=== PATIENT | male | born 1960 | race Caucasian/White ===

== ENCOUNTER → 2017-11-25 11:40 | Outpatient (CLI) | payer BC, SELFPAY ==
[2017-11-25 12:28] LABS: Basophils % 0.4 % (0.1-2.0); Eosinophils # 0.4 K/mm3 (0.0-0.4); Eosinophils % 4.4 % (0.1-12.0); Hematocrit 48.9 % (42.0-52.0); Hemoglobin 15.6 g/dL (14.1-18.0); Lymphocytes # 1.6 K/mm3 (0.7-4.5); Lymphocytes % 17.8 K/mm3 (10-50); Mean Corpuscular HGB Conc 31.9 g/dL (31.8-35.4); Mean Corpuscular Hemoglobin 31.3 pg (27.0-31.2); Mean Corpuscular Volume 98.2 fl (80-94); Mean Platelet Volume 7.3 fl (7.4-10.4); Monocytes # 0.7 K/mm3 (0.1-1.0); Monocytes % 8.1 % (1.7-9.3); Neutrophils # 6.2 K/mm3 (1.8-7.8); Neutrophils % 69.3 % (37.0-80.0); Platelet Count 301 K/mm3 (142-424); Red Blood Count 4.97 M/mm3 (4.60-6.20); Red Cell Distribution Width 13.4 % (11.5-17.5); White Blood Count 8.9 K/mm3 (4.8-10.8)
[2017-11-25 14:37] LABS: Alanine Aminotransferase 42 U/L (12-78); Albumin Level 3.6 gm/dL (3.4-5.0); Albumin/Globulin Ratio 1.1 (1.1-1.8); Alkaline Phosphatase 117 U/L (46-116); Anion Gap 14.2 mEq/L (5-15); Aspartate Amino Transferase 27 U/L (15-37); Bilirubin,Total 0.5 mg/dL (0.2-1.0); Blood Urea Nitrogen 12 mg/dL (7-18); Calcium 9.9 mg/dL (8.5-10.1); Carbon Dioxide 27 mmol/L (21.0-32.0); Chloride 106 mmol/L (98-107); Creatinine,Serum 1.04 mg/dL (0.70-1.30); Estimated Glomerular Filt Rate 73 ml/min (>60); GFR (African American) 88 ML/MIN (>60); Globulin 3.4 gm/dl (1.3-3.2); Glucose 95 mg/dL (74-106); Potassium 4.2 mmoL/L (3.5-5.1); Sodium 143 mmol/L (136-145); Thyroid Stimulating Hormone 1.87 uIU/ml (0.358-3.740)
== END ==
PROVIDERS: Visit Provider Nurse Practitioner Family
DX: R60.9 Edema, unspecified (principal); R06.09 Other forms of dyspnea
CPT/HCPCS: 36415; 80053; 83880; 84443; 85025

== ENCOUNTER → 2017-11-30 14:19 | Outpatient (CLI) | payer BC, SELFPAY ==
--- NOTE | 2017-11-30 14:25 | CA_ITS ---
PROCEDURE: 2-D M-mode and color Doppler study INDICATIONS FOR THE TEST: Chest pain + COPD+ Heart Murmur Tobacco Smoking Palpitations Fatigue+ Syncope Edema+ Hypertension+Diabetes Mellitus+ Rheumatic Fever SOB+PATEL+Obesity+Hyperlipidemia+ Family History HD Additional History 6 STEMTS PATIENT INFORMATION HEIGHT: 71 WEIGHT:315 GENDER: Male B/P:127/74 2-D/M-MODE INTERPRETATION: 2-D MEASUREMENTS OBSERVED VALUES IN CMS Right Ventricular Dimension (RVDd) 2.0 Interventricular Septum (Thickness)(IVsd) 1.3 Left Ventricular Internal Dimensions(LVIDd) 4.7 Left Ventricular Posterior Wall (Thickness)(LVPWd) 1.3 Aortic Root 3.5 Aortic Cusp Separation 2.2 Left Atrial Dimensions (LAD) 4.5 2D 1. Left atrium is mildly enlarged, left ventricle is normal size, there is mild ventricular hypertrophy, visually estimated ejection fraction 55% with no obvious regional wall motion abnormality. 2. The right atrium and right ventricle are mildly enlarged with normal contractility. 3. The aortic valve is minimally thickened and fibrosed. 4. The mitral and tricuspid valve are structurally normal. 5. The pulmonic valve is poorly was adequate. 6. No significant pericardial effusion noted. DOPPLER INTERROGATION: Doppler interrogation of the aortic, mitral and tricuspid valvular presence of mild mitral and tricuspid regurgitation, tricuspid and jet velocity insufficient for calculation of the right ventricular systolic pressure, diastolic parameters are inconclusive. CONCLUSION: 1. Mild biatrial enlargement, normal left ventricular size, mild concentric left ventricular hypertrophy, visually estimated ejection fraction 55% with no obvious regional wall motion abnormality, diastolic parameters are inconclusive. 2. Mild mitral and tricuspid regurgitation 3. No significant pericardial effusion noted.
== END ==
PROVIDERS: Family Provider Internal Medicine Adolescent Medicine; PCP Internal Medicine Adolescent Medicine; Visit Provider Nurse Practitioner Family
DX: I50.20 Unspecified systolic (congestive) heart failure (principal); R06.02 Shortness of breath
CPT/HCPCS: 93306

== ENCOUNTER → 2017-12-09 11:25 | Outpatient (CLI) | payer BC, SELFPAY ==
[2017-12-09 17:24] LABS: Anion Gap 15.2 mEq/L (5-15); Blood Urea Nitrogen 19 mg/dL (7-18); Carbon Dioxide 25 mmol/L (21.0-32.0); Chloride 106 mmol/L (98-107); Creatinine,Serum 0.99 mg/dL (0.70-1.30); Estimated Glomerular Filt Rate 77 ml/min (>60); GFR (African American) 94 ML/MIN (>60); Glucose 102 mg/dL (74-106); Magnesium 2.1 mg/dL (1.4-2.2); Potassium 4.2 mmoL/L (3.5-5.1); Sodium 142 mmol/L (136-145)
[2017-12-10 13:51] LABS: Vitamin B12 515 pg/mL (232-1245)
== END ==
PROVIDERS: Visit Provider Nurse Practitioner Family
DX: I10 Essential (primary) hypertension (principal); R60.9 Edema, unspecified; R53.81 Other malaise
CPT/HCPCS: 36415; 80048; 82607; 83735

== ENCOUNTER → 2018-01-13 11:50 | Outpatient (CLI) | payer BC, SELFPAY ==
[2018-01-13 12:30] LABS: Alanine Aminotransferase 45 U/L (12-78); Albumin Level 3.4 gm/dL (3.4-5.0); Albumin/Globulin Ratio 0.9 (1.1-1.8); Alkaline Phosphatase 119 U/L (46-116); Anion Gap 14.9 mEq/L (5-15); Aspartate Amino Transferase 26 U/L (15-37); Bilirubin,Total 0.7 mg/dL (0.2-1.0); Blood Urea Nitrogen 13 mg/dL (7-18); Calcium 8.9 mg/dL (8.5-10.1); Carbon Dioxide 24 mmol/L (21.0-32.0); Chloride 105 mmol/L (98-107); Creatinine,Serum 1.11 mg/dL (0.70-1.30); Estimated Glomerular Filt Rate 68 ml/min (>60); GFR (African American) 82 ML/MIN (>60); Glucose 106 mg/dL (74-106); Potassium 3.9 mmoL/L (3.5-5.1); Sodium 140 mmol/L (136-145); Total Protein,Serum 7.4 gm/dL (6.4-8.2)
[2018-01-13 12:31] LABS: Basophils # 0.1 K/mm3 (0-0.2); Basophils % 0.5 % (0.1-2.0); Eosinophils # 0.2 K/mm3 (0.0-0.4); Eosinophils % 1.9 % (0.1-12.0); Hematocrit 46.1 % (42.0-52.0); Hemoglobin 14.6 g/dL (14.1-18.0); Lymphocytes # 1.4 K/mm3 (0.7-4.5); Lymphocytes % 12.4 K/mm3 (10-50); Mean Corpuscular HGB Conc 31.7 g/dL (31.8-35.4); Mean Corpuscular Hemoglobin 30.5 pg (27.0-31.2); Mean Corpuscular Volume 95.9 fl (80-94); Mean Platelet Volume 7.2 fl (7.4-10.4); Monocytes # 0.6 K/mm3 (0.1-1.0); Monocytes % 5.6 % (1.7-9.3); Neutrophils # 8.9 K/mm3 (1.8-7.8); Neutrophils % 79.8 % (37.0-80.0); Platelet Count 315 K/mm3 (142-424); Red Cell Distribution Width 12.8 % (11.5-17.5); White Blood Count 11.2 K/mm3 (4.8-10.8)
== END ==
PROVIDERS: Visit Provider Nurse Practitioner Family
DX: I50.20 Unspecified systolic (congestive) heart failure (principal); I20.8 Other forms of angina pectoris
CPT/HCPCS: 36415; 80053; 83735; 83880; 85025

== ENCOUNTER → 2018-11-02 12:21 | Outpatient (CLI) | payer BC, MEDICARE, SELFPAY ==
[2018-11-02 13:22] LABS: Basophils % 0.4 % (0.1-2.0); Eosinophils # 0.2 K/mm3 (0.0-0.4); Eosinophils % 2.2 % (0.1-12.0); Hematocrit 47.3 % (42.0-52.0); Hemoglobin 15.2 g/dL (14.1-18.0); Lymphocytes # 1.2 K/mm3 (0.7-4.5); Lymphocytes % 15.4 % (10-50); Mean Corpuscular HGB Conc 32.2 g/dL (31.8-35.4); Mean Corpuscular Hemoglobin 30.8 pg (27.0-31.2); Mean Corpuscular Volume 95.7 fl (80-94); Mean Platelet Volume 7.3 fl (7.4-10.4); Monocytes # 0.5 K/mm3 (0.1-1.0); Monocytes % 6.3 % (1.7-9.3); Neutrophils % 75.8 % (37.0-80.0); Platelet Count 285 K/mm3 (142-424); Red Blood Count 4.94 M/mm3 (4.60-6.20); Red Cell Distribution Width 13.5 % (11.5-17.5); White Blood Count 7.9 K/mm3 (4.8-10.8)
== END ==
PROVIDERS: Visit Provider Otolaryngology
DX: Z01.818 Encounter for other preprocedural examination (principal); H61.92 Disorder of left external ear, unspecified
CPT/HCPCS: 36415; 85025; 93005

== ENCOUNTER → 2018-12-16 14:36 | Outpatient (CLI) | payer BC, MEDICARE, SELFPAY ==
--- NOTE | 2018-12-16 14:38 | MR_ITS ---
MR cervical spine wo con, MR 3-d myelogram/MRCP HISTORY: Neck pain X Years. Prior neck surgery 2010. Bilateral Arm numbness. ITS.REASON: DDD CERVICAL, CERVICAL RADICULOPATHY DUE TO INTERVERTEBRAL D ORDERING PHYSICIAN: Jennifer Newton APRN PATIENT AGE: 58 years Comparison: MRI 05/03/15 TECHNIQUE: Standard multiplanar multiecho sequences are performed without contrast. 3-D MIP and myelographic images are also rendered and reviewed FINDINGS: There is normal alignment. The craniocervical junction has an unremarkable appearance. C2-C3: Unremarkable. Minimal prominence of the posterior longitudinal ligament C3-C4: Mild left-sided uncovertebral hypertrophy with mild left-sided foraminal narrowing. C4-C5: Degenerative disc disease with Bulging disc along with uncovertebral hypertrophy with bilateral foraminal narrowing slightly greater on the left C5-C6: Mild degenerative disc disease with bulging disc C6-C7: Degenerative disc disease with bulging disc with left paracentral disc osteophyte complex with moderate left-sided lateral recess and foraminal narrowing which may be slightly more prominent C7-T1: Prior anterior cervical disc fusion. Unremarkable appearance. T1-T2: Unremarkable. IMPRESSION: 1. Postsurgical changes with multilevel cervical spondylosis with degenerative disc disease bulging disc and uncovertebral hypertrophy. Please see above for detailed description at each level 2. Degenerative disc disease C6-C7 with bulging disc and a small left paracentral disc osteophyte complex with moderate left-sided lateral recess and foraminal narrowing which may be slightly more prominent compared to the previous exam
== END ==
PROVIDERS: PCP Nurse Practitioner Family; Visit Provider Nurse Practitioner Family
DX: M50.30 Other cervical disc degeneration, unspecified cervical region (principal); M50.10 Cervical disc disorder with radiculopathy, unspecified cervical region
CPT/HCPCS: 72141; 76376

== ENCOUNTER → 2019-01-03 13:57 | Outpatient (CLI) | payer BC, MEDICARE, SELFPAY ==
[2019-01-03 14:23] LABS: Basophils # 0.1 K/mm3 (0-0.2); Basophils % 0.5 % (0.1-2.0); Eosinophils # 0.3 K/mm3 (0.0-0.4); Eosinophils % 2.8 % (0.1-12.0); Hematocrit 46.1 % (42.0-52.0); Hemoglobin 15.5 g/dL (14.1-18.0); Lymphocytes # 1.9 K/mm3 (0.7-4.5); Lymphocytes % 20.7 % (10-50); Mean Corpuscular HGB Conc 33.6 g/dL (31.8-35.4); Mean Corpuscular Hemoglobin 31.7 pg (27.0-31.2); Mean Corpuscular Volume 94.1 fl (80-94); Mean Platelet Volume 7.3 fl (7.4-10.4); Monocytes # 0.6 K/mm3 (0.1-1.0); Monocytes % 6.3 % (1.7-9.3); Neutrophils # 6.4 K/mm3 (1.8-7.8); Neutrophils % 69.8 % (37.0-80.0); Platelet Count 293 K/mm3 (142-424); Red Cell Distribution Width 13.5 % (11.5-17.5); White Blood Count 9.2 K/mm3 (4.8-10.8)
[2019-01-03 18:33] LABS: Alanine Aminotransferase 30 U/L (12-78); Albumin Level 3.6 gm/dL (3.4-5.0); Albumin/Globulin Ratio 1.2 (1.1-1.8); Alkaline Phosphatase 108 U/L (46-116); Anion Gap 13.6 mEq/L (5-15); Aspartate Amino Transferase 19 U/L (15-37); Bilirubin,Total 0.5 mg/dL (0.2-1.0); Blood Urea Nitrogen 12 mg/dL (7-18); Calcium 8.8 mg/dL (8.5-10.1); Carbon Dioxide 28 mmol/L (21.0-32.0); Chloride 105 mmol/L (98-107); Chol/HDL Ratio 3.7 (1-3.5); Cholesterol 142 mg/dL (140-200); Creatinine,Serum 1.04 mg/dL (0.70-1.30); Estimated Glomerular Filt Rate 73 ml/min (>60); GFR (African American) 88 ML/MIN (>60); Globulin 2.9 gm/dl (1.3-3.2); Glucose 94 mg/dL (74-106); HDL Cholesterol 38 mg/dL (27-67); LDL Cholesterol 84 mg/dL (0-130); Potassium 4.6 mmoL/L (3.5-5.1); Sodium 142 mmol/L (136-145); Total Protein,Serum 6.5 gm/dL (6.4-8.2); Triglycerides 98 mg/dL (30-200); VLDL Cholesterol 20 mg/dL (0-40)
[2019-01-06 20:39] LABS: Vitamin B12 511 pg/mL (232-1245)
== END ==
PROVIDERS: Visit Provider Nurse Practitioner Family
DX: Z00.00 Encounter for general adult medical examination without abnormal findings (principal); E78.5 Hyperlipidemia, unspecified; I10 Essential (primary) hypertension; I50.20 Unspecified systolic (congestive) heart failure; E61.1 Iron deficiency; E53.8 Deficiency of other specified B group vitamins
CPT/HCPCS: 36415; 80053; 80061; 82607; 85025

== ENCOUNTER 2019-03-21 13:00 | Outpatient (RCR) | payer BC, MEDICARE, SELFPAY | END 2019-06-26 13:19 | disposition home or self-care (01) | LOC: PT 13:00 | PROVIDERS: Visit Provider Nurse Practitioner Family | DX: I50.20 Unspecified systolic (congestive) heart failure (principal); Z86.74 Personal history of sudden cardiac arrest | CPT/HCPCS: 93798 ==

== ENCOUNTER → 2019-10-12 11:16 | Outpatient (CLI) | payer BC, SELFPAY ==
--- NOTE | 2019-10-12 11:16 | NM_ITS ---
APPROVED REPORT Exam: Nuclear Stress Test Indication: chest pain..short of breath..syncpe..fatigue Patient Location: Outpatient Stress Tech: Zoey Daniel CT Tech:Komal RinaldiRISA RT(R)(N) Ht: 5 ft 11 in Wt: 290 lbs HR: 60 bpm BP: 105/48 mmHg BSA: 2.47 m2 BMI: 40.4 History: chest pain..short of breath..syncpe..fatigue Procedure: Patient received a 0.4 mg of intravenous Lexiscan, resting heart rate 60 bpm, resting blood pressure 105/48 mmHg, with Lexiscan maximum heart rate achived was 79 bpm which is % of the maximum predicted heart rate and blood pressure was 99/58 mmHg. With Lexiscan, patient denied any complaint of chest pain. Cardiac Stress and Resting SPECT Images: Cardiac Stress and Resting SPECT images were obtained using technetium 99m Myoview 31.1 mCi stress and 10.76 mCi at rest. EF 54% Fixed defect in the inferior wall with some mnimal redistribution at the apex and base of the defect Conclusion: EF 54% Fixed defect in the inferior wall with some mnimal redistribution at the apex and base of the defect suggesting mild perinfarct ischemia Electronically signed by : Elbert Booker MD 10/13/2019 13:55:02
--- NOTE | 2019-10-12 13:00 | CA_ITS ---
APPROVED REPORT Exam: Pharmacologic Technologist: RITA MAURICIO, Ht: 5 ft 11 in Wt: 290 lbs BSA: 2.47 m2 HR: 60 bpm BP: 105/48 mmHg Rhythm: NSR Indications: CP, SOA Medical History Medications: Metoprolol,,,,, Asa,,,,, Atorvastatin,,,,, Ranitidine,,,,, Iron,,,,, Lasix,,,,, LaMICTAL,,,,, Imdur,,,,, Nitro,,,,, LiNZESS,,,,, DuTASTERIDE,,,,, Aripiprazide,,,,, Stress Test Details Test: LEXISCAN Reason for pharmacologic stress test: physical limitation. HR Resting HR: 71 bpm Max Heart Rate (APMHR): 159 bpm Max HR Achieved: 95 bpm Target HR (85% APMHR): 135 bpm % of APMHR: 59 Recovery HR: 61 bpm BP Resting BP: 105/48 mmHg Max BP: 114/67 mmHg Recovery BP: 117.0/70.0 mmHg ECG Clinical Reason for Termination: Completed protocol Exercise duration: 04:13 min Highest Stage Achieved: Exercise capacity: 1.0 METs Stress ECG Conclusion Symptoms - SOA, mild nausea, mild malaise. Rare PAC. No significant ST-T changes. Conclusion - Unremarkable Lexiscan stress. Myoview images reported separately. Electronically signed by : Dillon Sky, 10/16/2019 09:45:39
--- NOTE | 2019-10-12 13:53 | HMH.ITSHM ---
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 [] asa atorvastatin lasix metoprolol niro
== END ==
PROVIDERS: PCP Internal Medicine Adolescent Medicine; Visit Provider Nurse Practitioner Family
DX: I25.118 Atherosclerotic heart disease of native coronary artery with other forms of angina pectoris (principal); R05 Cough; R06.09 Other forms of dyspnea; R07.89 Other chest pain; R60.9 Edema, unspecified; R94.31 Abnormal electrocardiogram [ECG] [EKG]; Z95.5 Presence of coronary angioplasty implant and graft
CPT/HCPCS: 78452; 93017; 93306; A9502; J2785

== ENCOUNTER 2019-12-22 08:23 | Day surgery (SDC) | payer BC, SELFPAY ==
[2019-12-22] VITALS (10 sets, daily range): BP systolic 109–145; BP diastolic 66–92; PULSE 51–69; RESP 16–20; TEMP 36.6–36.7; O2SAT 92–98; BMI 41.8
--- NOTE | 2019-12-22 | IR_ITS ---
APPROVED REPORT Patient Location: Outpatient [facility] Account Representative: RISA Espinal RT (R) PROCEDURES Left heart catheterization Left ventriculogram Selective coronary angiogram Drug-eluting stent deployment to the proximal LAD and mid LAD INDICATION Intolerable angina pectoris, Abnormal Myoview, Coronary artery disease Informed consent was obtained prior to the procedure. COMPLICATIONS NONE Estimated Blood Loss: LESS THAN 10 ML TECHNIQUE One percent lidocaine used to anesthetize the right anterior aspect of the wrist. The right radial artery was accessed via the Seldinger technique. A 6 Ivorian sheath was placed in the right radial artery. 2.5 mg of verapamil, 800 mcg of nitroglycerin, 1mg Lidocaine and 5000 U Heparin were given through the arterial sheath. The trap catheter was also used to perform left heart catheterization, left ventriculogram and selective coronary angiogram. At the end the diagnostic angiogram therapeutic heparin was administered and a JL 3.5 guide catheter was used to intubate the left main artery. A BMW wire was placed distally and a 2.5 x 30 mm resolute walter stent was deployed in the mid segment of the LAD at 22 starr reducing the stenosis to 0%. An additional 3.5 x 18 mm resolute walter stent was deployed at 22 starr in the proximal LAD reducing the stenosis to 0%. ALEXANDER-3 flow was present before and after the procedure. At the end the procedure the apparatus was removed the sheath was removed good hemostasis was achieved using TR banding patient was transferred to the postop holding her in stable condition ANGIOGRAPHIC RESULTS The left main artery Normal The left anterior descending artery Has a proximal eccentric 50% stenosis followed by 20% stenoses followed by an additional mid vessel concentric 70% in-stent restenotic lesion with additional concentric 50% stenosis distal to the stent. Very distally in the LAD there is a concentric 90% stenosis. This is at a 1.5 mm segment and where the LAD wraps the apex The circumflex artery Is nondominant gives rise to a large first obtuse marginal artery which has a stent in its proximal segment which is widely patent free of in-stent restenosis with excellent proximal distal transitioning The right coronary artery Is a dominant vessel and has stents in the proximal mid and distal segment which are widely patent free of in-stent restenosis with excellent proximal distal transitioning. There is one focal concentric 30 to 40% in-stent restenotic lesion in the distal aspect of the stent. The posterior descending artery has a mid vessel eccentric 30% stenosis The POLK ventriculogram reveals Reduced at 40% with anterior wall hypokinesis The left ventricular end-diastolic pressure 10 to 15 mmHg IMPRESSION Severe LAD disease as described above. The proximal moderate stenotic lesions and the moderate to severe mid vessel lesions make the distal stenosis quite ischemic. Because of the severe distal LAD stenosis inflow needed to be improved therefore the proximal and mid LAD were successfully stented thereby improving in flow. Reduced ejection fraction with regional wall motion abnormality Mildly elevated LVEDP PLAN 1. Dual antiplatelet therapy 2. Addition of SHAR inhibitor 3. LDL less than 55 4. Cardiac rehabilitation 5. Avoidance of tobacco products 6. The distal LAD is not amenable to stenting or angioplasty. The erratically the balloon could be used to reduce the severe stenosis but I am not in favor of revascularizing this vessel unless patient's symptoms are absolutely recalcitrant Electronically signed by : Dillon Sky, 12/22/2019 11:34:55
[2019-12-22 09:01] LABS: Chloride 103 mmol/L (98-107); Potassium 3.8 mmoL/L (3.5-5.1); Sodium 141 mmol/L (136-145)
[2019-12-22 09:03] LABS: Basophils # 0.1 K/mm3 (0-0.2); Basophils % 1.2 % (0.1-2.0); Eosinophils # 0.2 K/mm3 (0.0-0.4); Eosinophils % 2.2 % (0.1-12.0); Hematocrit 52.5 % (42.0-52.0); Hemoglobin 16.9 g/dL (14.1-18.0); Lymphocytes # 1.8 K/mm3 (0.7-4.5); Lymphocytes % 18.7 % (10-50); Mean Corpuscular HGB Conc 32.2 g/dL (31.8-35.4); Mean Corpuscular Hemoglobin 31.8 pg (27.0-31.2); Mean Corpuscular Volume 98.6 fl (80-94); Mean Platelet Volume 7.5 fl (7.4-10.4); Monocytes # 0.7 K/mm3 (0.1-1.0); Monocytes % 7.2 % (1.7-9.3); Neutrophils # 6.9 K/mm3 (1.8-7.8); Neutrophils % 70.7 % (37.0-80.0); Platelet Count 290 K/mm3 (142-424); Red Blood Count 5.32 M/mm3 (4.60-6.20); Red Cell Distribution Width 13.7 % (11.5-17.5); White Blood Count 9.8 K/mm3 (4.8-10.8)
[2019-12-22 09:04] LABS: Blood Urea Nitrogen 9 mg/dl (9-20); Creatinine Clearance Estimated 83 mL/min (50-200); Estimated Glomerular Filt Rate 98 ml/min (>60); GFR (African American) 119 ML/MIN (>60)
[2019-12-22 09:05] LABS: Anion Gap 10.8 mEq/L (5-15); Calcium 9.5 mg/dl (8.4-10.2); Carbon Dioxide 31 mmol/L (22.0-30.0); Glucose 105 mg/dl (74-100)
--- NOTE | 2019-12-22 13:57 | HMH.PHACLD ---
Abe Maharaj JR has received discharge medication counseling on the following medications: NEW MEDICATIONS: BRILINTA, RAMIPRIL - DRUG MONOGRAPHS GIVEN AND QUESTIONS ANSWERED CONTINUE MEDICATION: ASPIRIN, METOPROLOL, ATORVASTATIN
[2019-12-22 14:10] LABS: CATHL Activated Clotting Time 313 SEC (74-125)
== END 2019-12-22 14:29 | disposition home or self-care (01) ==
PROVIDERS: PCP Internal Medicine Adolescent Medicine; Visit Provider Internal Medicine
DX: I25.118 Atherosclerotic heart disease of native coronary artery with other forms of angina pectoris (principal); I10 Essential (primary) hypertension; Z95.5 Presence of coronary angioplasty implant and graft; I25.2 Old myocardial infarction; Z72.0 Tobacco use; Z79.899 Other long term (current) drug therapy
CPT/HCPCS: 80048; 85025; 85347; 92928; 93458; 99152; 99153; C1725; C1760; C1769; C1876; C9600; J1644; Q9967

== ENCOUNTER 2019-12-23 10:10 | Observation (INO) | payer BC, SELFPAY ==
[2019-12-23] VITALS (9 sets, daily range): BP systolic 117–143; BP diastolic 52–85; PULSE 50–81; RESP 16–19; TEMP 36.4–36.8; O2SAT 94–98; BMI 40.1; BMI 38.5
--- NOTE | 2019-12-23 10:09 | ECG_ITS ---
APPROVED REPORT Exam: Resting ECG HR:68 bpm ECG Measurements Heart Rate 68 AXES ME 150 P 81 QRSd 100 QRS -36 QT 382 T 45 QTc 406 <Conclusion> Normal sinus rhythm Left axis deviation,LAHB Moderate voltage criteria for LVH, may be normal variant Abnormal ECG Electronically signed by : Crow Damon, 12/26/2019 08:49:18
--- NOTE | 2019-12-23 10:13 | XR_ITS ---
PROCEDURE: XR CHEST 2V Patient Age:59Y CLINICAL HISTORY: Chest Pain had heart cath and cardiac stents placed yesterday. Of ongoing smoker COMPARISON: CXR CHEST(2 VIEWS-NOT PORTABLE) from 04/19/2015 CXR CHEST(2 VIEWS-NOT PORTABLE) from 03/17/2017 FINDINGS: The cardiomediastinal silhouette and pulmonary vascularity are within normal limits. Cardiac stentsvaguely evident. The bhaskar and superior mediastinal structures unchanged The lungs are clear without infiltrates, suspicious nodules, or pleural effusions. Mild hyperexpansion with mild chronic changes. No significant change since previous chest film 03/17/2017. No acute bony abnormalities. Chest wall unremarkable. T-spine appear stable with mild degenerative changes anterior fusion lower C-spine again noted IMPRESSION: Stable chest with nothing definitely acute. Lungs appear clear with mild chronic changes but no significant new findings Dictated by: Ronak Rivera MD 12/23/2019 19:52 Electronically signed by Ronak Rivera MD in [place] 12/23/2019 19:52
--- NOTE | 2019-12-23 10:13 | HMH.EDGENADL ---
ED Disposition Clinical Impression: Precordial chest pain Disposition: Admitted as Observation Condition on Discharge: Fair - Critical Care Critical Care Time: No Attestation: On , the high probability of a clinically significant, sudden or life threatening deterioration of the following system(s) required my full and direct attention, intervention and personal management. The time I documented below is in addition to time spent performing reported procedures but includes the following listed in this critical care notation. Medical Decision Making - Medical Records Medical records reviewed: Yes: I reviewed the patient's medical records. - Tk Inquiry Pt receiving controlled substance: Yes Tk was queried for this patient: No Reason not queried -: Emergent pt cond-no time Risks and benefits of using a controlled substance: were not discussed with pt by me Vital Signs: 12/23/19 10:13 12/23/19 10:32 12/23/19 11:05 Temperature 98.2 F Temperature Source Oral Pulse Rate [Left Radial] 73 81 62 Respiratory Rate 16 Blood Pressure [Right Arm] 138/78 133/76 123/77 Blood Pressure Mean [Right Arm] 98 95 92 Blood Pressure Source [Right Arm] Automatic Cuff Automatic Cuff Blood Pressure Position [Right Arm] Sitting Sitting Sitting 02 Sat by Pulse Oximetry 98 96 97 Oxygen Delivery Method Room Air Room Air Room Air 12/23/19 11:37 Temperature Temperature Source Pulse Rate [Left Radial] 64 Respiratory Rate Blood Pressure [Right Arm] 123/76 Blood Pressure Mean [Right Arm] 91 Blood Pressure Source [Right Arm] Automatic Cuff Blood Pressure Position [Right Arm] Sitting 02 Sat by Pulse Oximetry 95 Oxygen Delivery Method Room Air - Lab Data Lab results reviewed: Yes: I reviewed the patient's lab results. Lab Results 12/23/19 10:15: WBC 9.8, RBC 5.12, Hgb 15.9, Hct 48.3, MCV 94.4 H, MCH 31.1, MCHC 33.0, RDW 13.9, Plt Count 268, MPV 7.7, Neut % (Auto) 81.6 H, Lymph % (Auto) 9.7 L, Wagoner % (Auto) 6.5, Eos % (Auto) 1.3, Baso % (Auto) 1.1, Neut # (Auto) 8.0 H, Lymph # (Auto) 0.9, Wagoner # (Auto) 0.6, Eos # (Auto) 0.1, Baso # (Auto) 0.1 12/23/19 10:15: Sodium 140, Potassium 3.5, Chloride 107, Carbon Dioxide 27, Anion Gap 9.5, BUN 7 L, Creatinine 0.80, Estimated Creat Clear 147, Estimated GFR 98, Est GFR ( Amer) 119, Glucose 127 H, Calcium 9.4, Troponin I 0.57 H Result diagrams: 12/23/19 10:15 12/23/19 10:15 Orders (Tests/Meds): ED MEDICATIONS Generic Name Dose Route Start Last Admin Trade Name Freq PRN Reason Stop Dose Admin Nitroglycerin 2 gm 12/23/19 11:30 12/23/19 11:29 Nitroglycerin 1 Inch Oint Udp TD 01/22/20 11:29 2 gm Q6H JUSTIN Administration Ranolazine 1,000 mg 12/23/19 11:30 12/23/19 11:41 Ranexa 500mg Er Tablet PO 01/22/20 11:29 1,000 mg BID JUSTIN Administration Discontinued Medications Generic Name Dose Route Start Last Admin Trade Name Freq PRN Reason Stop Dose Admin Aspirin 324 mg 12/23/19 11:05 12/23/19 11:08 Aspirin 81mg Chewable Tablet PO 12/23/19 11:06 324 mg ONCE ONE Administration Morphine Sulfate 4 mg 12/23/19 11:23 12/23/19 11:28 Morphine 4mg/Ml Syringe IV 12/23/19 11:24 4 mg ONCE ONE Administration Nitroglycerin 1 gm 12/23/19 11:09 12/23/19 11:11 Nitroglycerin 1 Inch Oint Udp TD 12/23/19 11:10 1 gm ONCE ONE Administration Ondansetron HCl 4 mg 12/23/19 11:23 Zofran 4mg/2ml Vial IV 12/23/19 11:24 ONCE ONE ORDERS Category Date Time Status XR chest 2V Stat Exams 12/23/19 10:13 Taken Troponin I Q3H Lab 12/23/19 13:15 Ordered Troponin I Q3H Lab 12/23/19 16:15 Ordered - Radiology Data #1 Image(s): Chest Image Reviewed: Yes I reviewed the patient's radiology image Preliminary Findings: Normal/NAD - ECG Data Tracing #1 EKG interpreted by Abe To MD: Rhythm: sinus Rate: 68 [place]: Left Ectopy: none Conduction: normal ST Segment Changes: none T Wave Changes: none
[2019-12-23 10:26] LABS: Chloride 107 mmol/L (98-107); Potassium 3.5 mmoL/L (3.5-5.1); Sodium 140 mmol/L (136-145)
[2019-12-23 10:29] LABS: Anion Gap 9.5 mEq/L (5-15); Blood Urea Nitrogen 7 mg/dl (9-20); Calcium 9.4 mg/dl (8.4-10.2); Carbon Dioxide 27 mmol/L (22.0-30.0); Creatinine Clearance Estimated 147 mL/min (50-200); Estimated Glomerular Filt Rate 98 ml/min (>60); GFR (African American) 119 ML/MIN (>60); Glucose 127 mg/dl (74-100)
[2019-12-23 10:31] LABS: Basophils # 0.1 K/mm3 (0-0.2); Basophils % 1.1 % (0.1-2.0); Eosinophils # 0.1 K/mm3 (0.0-0.4); Eosinophils % 1.3 % (0.1-12.0); Hematocrit 48.3 % (42.0-52.0); Hemoglobin 15.9 g/dL (14.1-18.0); Lymphocytes # 0.9 K/mm3 (0.7-4.5); Lymphocytes % 9.7 % (10-50); Mean Corpuscular Hemoglobin 31.1 pg (27.0-31.2); Mean Corpuscular Volume 94.4 fl (80-94); Mean Platelet Volume 7.7 fl (7.4-10.4); Monocytes # 0.6 K/mm3 (0.1-1.0); Monocytes % 6.5 % (1.7-9.3); Neutrophils % 81.6 % (37.0-80.0); Platelet Count 268 K/mm3 (142-424); Red Blood Count 5.12 M/mm3 (4.60-6.20); Red Cell Distribution Width 13.9 % (11.5-17.5); White Blood Count 9.8 K/mm3 (4.8-10.8)
--- NOTE | 2019-12-23 10:32 | PC.NURSE ---
pt returned from rad.
[2019-12-23 10:43] LABS: Troponin I 0.57 ng/ml (0.00-0.034)
--- NOTE | 2019-12-23 10:53 | PC.NURSE ---
Family at bedside at this time.
--- NOTE | 2019-12-23 11:09 | PC.NURSE ---
pt states my chest pain did go away for a little bit, but now its back
--- NOTE | 2019-12-23 11:18 | PC.NURSE ---
BECKIE UNGER speaking with Dr. Sky
--- NOTE | 2019-12-23 11:24 | PC.NURSE ---
matrix bath operator paging Dr. Lorenz
--- NOTE | 2019-12-23 11:30 | PC.NURSE ---
pt and updated on plan of care
--- NOTE | 2019-12-23 11:41 | PC.NURSE ---
Dr To talking to Dr Lorenz.
--- NOTE | 2019-12-23 12:12 | PC.NURSE ---
report given to Trisha Benitez RN on second floor, states she will send staff down to transport pt.
[2019-12-23 14:12] LABS: Troponin I 0.57 ng/ml (0.00-0.034)
--- NOTE | 2019-12-23 16:32 | HMH.HP ---
*Admission Date: 12/23/19 *Chief complaint: Chest pain *History of present illness: Mr. Maharaj is a 59-year-old male with multiple comorbidities, history of coronary artery disease, and stents placed in 2017. He presented earlier this week to see cardiology for an elective heart cath with placement of 2 coronary artery stents on Wednesday of this week. Procedure went well no complications however soon after the event he states he developed some precordial pain similar to when he had his heart attack years ago. Complains of precordial chest pain with shortness of breath and nausea and radiation to his left neck and back that started about 5 PM yesterday. He states that he has chronic angina, but this pain is deeper and persistent. He took 2 nitro prior to presentation to the ER which helped but did not totally relieve the pain. In the emergency room, work-up showed slight elevation of troponin at 0.57. Cardiology was consulted who recommended admission for angina (coronary arteritis) and medical management. Patient was admitted to medicine for observation, serial troponins, and monitoring on telemetry. On my assessment this afternoon he is feeling much better. Still has some mild shortness of breath or chest pain essentially resolved. Received morphine, nitroglycerin paste, and Ranexa in the ER. No acute distress at this time. Does state however he is having a difficult time sleeping. Denies nausea, vomiting, syncope, dizziness, palpitations. [facility] History I have reviewed the patient's past medical history: Yes Medical History: Reports:: Anxiety, Coronary Artery Disease, Depression, Hyperlipidemia, Hypertension, Myocardial Infarction Denies:: Cancer, Diabetes Mellitus Type 1, Diabetes Mellitus Type 2, Internal Pacemaker, MRSA, Seizures *Have you ever received a pneumonia vaccine?: No *Have you received a flu vaccine this season?: No Other Medical History: Reports: Other. Denies: Blood Transfusion Reaction Laterality Cases: Bilateral: Other Other Surgeries: Yes: Cardiac Catheterization, Coronary Stent, Hernia Repair, Other. No: Pacemaker Amputation: No Fractures: Yes - *Social History Educational Level: Completed High School Smoking Status: Current every day smoker Tobacco Type: pipe # Packs/Day (cigarettes): 1 Alcohol Intake: never Substance Use Type: denies use, marijuana *Occupational Status:: employed Housing: apartment Household Members: spouse *Travel in the last 8 weeks: None - Psychiatric History Pschychiatric History:: Reports:: Anxiety, Depression Family Hx:: Coronary Artery Disease, Hyperlipidemia, Hypertension, Mental illness Review of Systems - Review of Systems Review of systems:: pertinent systems reviewed and negative unless documented below (14 point review of systems performed, pertinent positives and negatives as per HPI) Meds Home Medications Medication Instructions Recorded Confirmed Type albuterol sulfate 90 mcg/actuation 1 puff INHALATION DAILY 25 Days #9 10/27/18 12/23/19 History aerosol inhaler g atorvastatin 80 mg tablet 80 mg PO DAILY 90 Days #90 tab 10/27/18 12/23/19 History budesonide-formoterol HFA 160 1 puff INHALATION DAILY 30 Days 10/27/18 12/23/19 History mcg-4.5 mcg/actuation aerosol #10 g inhaler ferrous sulfate 325 mg (65 mg 325 mg PO DAILY 90 Days #180 tab 10/27/18 12/23/19 History iron) tablet furosemide 40 mg tablet 40 mg PO DAILY 30 Days #30 tab 10/27/18 12/23/19 History metoprolol succinate 50 mg 50 mg PO DAILY 90 Days #90 tab 10/27/18 12/23/19 History tablet,extended release 24 hr omeprazole 40 mg capsule,delayed 40 mg PO DAILY 30 Days #30 cap 10/27/18 12/23/19 History release ranitidine HCl 150 mg tablet 150 mg PO DAILY 10/27/18 12/23/19 History tamsulosin 0.4 mg capsule 0.4 mg PO DAILY 90 Days #90 cap 10/27/18 12/23/19 History aripiprazole 30 mg tablet 30 mg PO DAILY tab 10/10/19 12/23/19 History aspirin 81 mg tablet,delayed 81 mg PO DAILY 10/10/1912/22
[2019-12-23 16:47] LABS: Troponin I 0.52 ng/ml (0.00-0.034)
--- NOTE | 2019-12-23 20:12 | PC.NURSE ---
SPOKE WITH [facility] CONTROLLED ATMOSPHERIC FURNACE BRAZER, CHULA ON SEP TO BE GIVEN THIS HS IS NOT AVAILABLE HOSPITAL WIDE PER [facility]. PT STATES HE CAN NOT GO WITH MISSING A DOSE OF IT OF HE WILL GO CRAZY . [facility] STATES [facility] WILL BE COMING IN TO PULL GIAICTAL FROM PHARM FOR PT ADMIN. PT AWARE.
[2019-12-24] VITALS: BP 115/69; PULSE 59; PULSE 60; RESP 17; TEMP 36.6; O2SAT 92
[2019-12-24 03:52] VITALS: BP 111/51; PULSE 75; RESP 16; TEMP 36.6; O2SAT 94
[2019-12-24 04:00] VITALS: PULSE 60
--- NOTE | 2019-12-24 04:05 | PC.NURSE ---
A&O X4. PT RESTED WELL WITH EYES CLOSED T/O SHIFT. DENIES ANY CHEST PAIN. TOLERATED 2GM NITRO PASTE WELL WITH NO COMPLAINTS. NSR NOTED ON PHOTOENGRAVING PRINTER. +1 NON-PITTING EDEMA NOTED TO BLE. DENIES N/V/D. DENIES SOA. TOLERATED RA WELL. BILATERAL LUNGS NOTED CLEAR UPON AUSCULTATION. PT REQUESTING TO HAVE SYMBICORT INHALER THIS AM. INHALER IS LOCATED ON HIS SEP, UNABLE TO ADMIN DUE TO BEING ORDERED A HOME MED. NO HOME MEDS IN [place] AT THIS TIME. AMB INDEPENDENTLY TO AND FROM BATHROOM WELL. VSS. REFUSED TEDS. REMAINS SAFE. CALL LIGHT WITHIN REACH. WILL CONTINUE TO MONITOR.
[2019-12-24 05:00] VITALS: BMI 38.9
[2019-12-24 07:08] VITALS: BP 149/71; PULSE 62; RESP 18; TEMP 36.7; O2SAT 94
[2019-12-24 08:00] VITALS: PULSE 55
--- NOTE | 2019-12-24 09:21 | HMH.DCSUM ---
General - General Admission date:: 12/23/19 Discharge date: 12/24/19 HPI HPI: Mr. Maharaj is a 59-year-old male with multiple comorbidities, history of coronary artery disease, and stents placed in 2017. He presented earlier this week to see cardiology for an elective heart cath with placement of 2 coronary artery stents on Wednesday of this week. Procedure went well no complications however soon after the event he states he developed some precordial pain similar to when he had his heart attack years ago. Complains of precordial chest pain with shortness of breath and nausea and radiation to his left neck and back that started about 5 PM yesterday. He states that he has chronic angina, but this pain is deeper and persistent. He took 2 nitro prior to presentation to the ER which helped but did not totally relieve the pain. In the emergency room, work-up showed slight elevation of troponin at 0.57. Cardiology was consulted who recommended admission for angina (coronary arteritis) and medical management. Patient was admitted to medicine for observation, serial troponins, and monitoring on telemetry. On my assessment this afternoon he is feeling much better. Still has some mild shortness of breath or chest pain essentially resolved. Received morphine, nitroglycerin paste, and Ranexa in the ER. No acute distress at this time. Does state however he is having a difficult time sleeping. Denies nausea, vomiting, syncope, dizziness, palpitations. Hospital Course Hospital Course: Patient monitored overnight on telemetry. Serial cardiac enzymes remained stable. Chest pain resolved after initiation of Ranexa and treatment with a single dose of morphine and nitroglycerin paste. Patient reports he slept well overnight and has no discomfort this morning. Given response to Ranexa, normal telemetry, and stable serial enzymes, will plan to discharge home with close follow-up. Continue with follow-up as scheduled with cardiology after left heart cath. We will follow-up in the next week with primary care to assess continued stability in the interim. Patient denies chest pain, shortness of breath, nausea, vomiting, diarrhea, dizziness. Overall doing well. Medically stable for discharge home Objective Vital signs: Temp Pulse Resp BP Pulse Ox 98.1 F 62 18 149/71 H 94 L 12/24/19 07:08 12/24/19 07:08 12/24/19 07:08 12/24/19 07:08 12/24/19 07:08 Narrative: - Constitutional no acute distress, obese - *Routine HEENT Exam Head: Present: normocephalic Eye: Present: EOMI, PERRL ENT: Present: mucous membranes moist - *Routine Neck Exam Present: supple. Absent: lymphadenopathy - *Routine Respiratory Exam Present: CTA bilaterally - *Routine Cardiovascular Exam Present: RRR, Normal S1, Normal S2. Absent: murmur - *Routine Abdominal Exam Present: soft, normoactive bowel sounds. Absent: tenderness - *Routine Extremities Exam Absent: cyanosis, clubbing, edema Comments: Right radial insertion site with some bruising but no active bleeding - *Routine Skin Exam Present: warm. Absent: rash - *Routine Neurological Exam Present: alert, oriented X3 Results Labs on day of discharge: Labs from last 24 hours 12/23/19 12/23/19 12/23/19 16:13 13:35 10:15 WBC RBC Hgb Hct MCV MCH MCHC RDW Plt Count MPV Neut % (Auto) Lymph % (Auto) [place] % (Auto) Eos % (Auto) Baso % (Auto) Neut # (Auto) Lymph # (Auto) [place] # (Auto) Eos # (Auto) Baso # (Auto) Sodium 140 Potassium 3.5 Chloride 107 Carbon Dioxide 27 Anion Gap 9.5 BUN 7 L Creatinine 0.80 Estimated Creat Clear 147 Estimated GFR 98 Est GFR ( Amer) 119 Glucose 127 H Calcium 9.4 Troponin I 0.52 H 0.57 H 0.57 H 12/23/19 10:15 WBC 9.8 RBC 5.12 Hgb 15.9 Hct 48.3 MCV 94.4 H MCH 31.1 MCHC 33.0 RDW 13.9 Plt Co
--- NOTE | 2019-12-24 10:56 | HMH.PHAINT ---
DISCHARGE COUNSELING-DISCUSSED WITH PATIENT ABOUT NEW MEDICATION, RANEXA.
== END 2019-12-24 11:10 | disposition home or self-care (01) ==
LOC: ER 11:27 → 2ND 12:15
PROVIDERS: Admitting Provider Internal Medicine Adolescent Medicine; Emergency Provider Emergency Medicine; PCP Internal Medicine Adolescent Medicine; Visit Provider Internal Medicine Adolescent Medicine
DX: R07.2 Precordial pain (principal); I25.10 Atherosclerotic heart disease of native coronary artery without angina pectoris; Z95.5 Presence of coronary angioplasty implant and graft; Z72.0 Tobacco use; E87.5 Hyperkalemia; I10 Essential (primary) hypertension; Z88.8 Allergy status to other drugs, medicaments and biological substances; Z79.82 Long term (current) use of aspirin; Z79.01 Long term (current) use of anticoagulants; Z79.51 Long term (current) use of inhaled steroids
CPT/HCPCS: 36415; 71046; 80048; 84484; 85025; 93005; 96374; 96376; 99284; G0378

== ENCOUNTER → 2020-01-01 10:22 | Outpatient (CLI) | payer BC, SELFPAY ==
[2020-01-01 11:45] LABS: Alanine Aminotransferase 39 U/L (12-78); Albumin Level 4.3 g/dl (3.5-5.0); Alkaline Phosphatase 142 U/L (38-126); Aspartate Amino Transferase 34 U/L (17-59); Bilirubin,Direct 0.1 mg/dl (0.0-0.4); Bilirubin,Indirect 0.3 mg/dL (0.0-0.9); Bilirubin,Total 0.4 mg/dl (0.2-1.3); Bilirubin,Unconjugated 0.3 mg/dL (0.0-1.1); Chol/HDL Ratio 2.9 (1-3.5); Cholesterol 138 mg/dl (140-200); HDL Cholesterol 47 mg/dl (40-60); Triglycerides 112 mg/dl (30-150); VLDL Cholesterol 22 mg/dL (0-40)
[2020-01-01 11:56] LABS: Direct LDL Cholesterol 90.48 mg/dL (100-129)
== END ==
PROVIDERS: Visit Provider Urology
DX: R06.00 Dyspnea, unspecified (principal); I25.10 Atherosclerotic heart disease of native coronary artery without angina pectoris; E78.5 Hyperlipidemia, unspecified; I10 Essential (primary) hypertension; F17.200 Nicotine dependence, unspecified, uncomplicated
CPT/HCPCS: 36415; 80061; 80076

== ENCOUNTER 2020-01-29 09:33 | Day surgery (SDC) | payer BC, MEDICARE, SELFPAY ==
[2020-01-29] VITALS (11 sets, daily range): BP systolic 111–137; BP diastolic 64–84; PULSE 45–94; RESP 16; TEMP 36.9; O2SAT 91–96; BMI 40.6
[2020-01-29 10:18] LABS: Basophils # 0.1 K/mm3 (0-0.2); Basophils % 0.6 % (0.1-2.0); Eosinophils # 0.2 K/mm3 (0.0-0.4); Eosinophils % 2.5 % (0.1-12.0); Hematocrit 48.1 % (42.0-52.0); Hemoglobin 16.1 g/dL (14.1-18.0); Lymphocytes # 1.7 K/mm3 (0.7-4.5); Lymphocytes % 18.9 % (10-50); Mean Corpuscular HGB Conc 33.4 g/dL (31.8-35.4); Mean Corpuscular Hemoglobin 32.6 pg (27.0-31.2); Mean Corpuscular Volume 97.5 fl (80-94); Mean Platelet Volume 7.4 fl (7.4-10.4); Monocytes # 0.6 K/mm3 (0.1-1.0); Monocytes % 6.5 % (1.7-9.3); Neutrophils # 6.4 K/mm3 (1.8-7.8); Neutrophils % 71.6 % (37.0-80.0); Platelet Count 280 K/mm3 (142-424); Red Blood Count 4.93 M/mm3 (4.60-6.20); Red Cell Distribution Width 13.9 % (11.5-17.5)
[2020-01-29 10:20] LABS: Chloride 105 mmol/L (98-107)
[2020-01-29 10:21] LABS: Potassium 3.9 mmoL/L (3.5-5.1); Sodium 140 mmol/L (136-145)
[2020-01-29 10:24] LABS: Anion Gap 7.9 mEq/L (5-15); Blood Urea Nitrogen 9 mg/dl (9-20); Calcium 9.2 mg/dl (8.4-10.2); Carbon Dioxide 31 mmol/L (22.0-30.0); Creatinine Clearance Estimated 145 mL/min (50-200); Estimated Glomerular Filt Rate 86 ml/min (>60); GFR (African American) 104 ML/MIN (>60); Glucose 110 mg/dl (74-100)
--- NOTE | 2020-01-29 11:30 | IR_ITS ---
APPROVED REPORT Patient Location: Outpatient PROCEDURES Left heart catheterization Left ventriculogram Selective coronary angiogram INDICATION Known coronary artery disease, Angina pectoris Informed consent was obtained prior to the procedure. COMPLICATIONS none Estimated Blood Loss: less than 10mls TECHNIQUE One percent lidocaine used to anesthetize the right anterior aspect of the wrist. The right radial artery was accessed via the Seldinger technique. A 6 English sheath was placed in the right radial artery. 2.5 mg of verapamil, 800 mcg of nitroglycerin, 1mg Lidocaine and 5000 U Heparin were given through the arterial sheath. The trap catheter was also used to perform left heart catheterization, left ventriculogram and selective coronary angiogram. At the end of the procedure the sheath was removed good hemostasis was achieved using Traclet band, patient was transferred to the postop holding area in stable condition. ANGIOGRAPHIC RESULTS The left main artery Short normal The left anterior descending artery Has a stent in the proximal segment widely patent free of in-stent restenosis with excellent proximal transitioning. There are additional mid vessel 30% stenoses followed by mid vessel stent which is widely patent free of in-stent restenosis with excellent proximal distal transitioning. Very distally in the apex the LAD has a focal 90% stenosis in the segment 1.5 mm in diameter The circumflex artery Is nondominant has a stent in the proximal segment widely patent free of in-stent restenosis with excellent proximal distal transitioning The right coronary artery Is a dominant vessel and has stents in the proximal segment which extend through the mid segment which are widely patent with minimal in-stent restenosis excellent proximal and distal transitioning. There is a stent in the distal segment of the right coronary artery which has a proximal concentric 30 to 40% stenosis. Posterior descending artery is a large vessel has an eccentric mid vessel 40% stenosis. The POLK ventriculogram reveals Preserved at 55 to 60% The left ventricular end-diastolic pressure 10 mmHg IMPRESSION Patent coronary artery stents as described above Persistent severe stenosis in the distal 1.5 mm LAD as it wraps the apex Preserved ejection fraction Normal left ventricular end-diastolic pressure PLAN 1. The distal LAD stenosis remains unchanged. I strongly recommend medical management. If patient's symptoms became absolutely recalcitrant to medical management I would consider performing angioplasty only to this vessel however this should be a last resort and patient should be maximally managed medically. This vessel is too small for stenting and although it is possible to perform angioplasty I still believe medical management would be better served 2. Risk factor modification Electronically signed by : Dillon Sky, 01/29/2020 11:42:03
== END 2020-01-29 14:32 | disposition home or self-care (01) ==
LOC: CATHLAB 09:39
PROVIDERS: PCP Internal Medicine Adolescent Medicine; Visit Provider Internal Medicine
DX: I25.110 Atherosclerotic heart disease of native coronary artery with unstable angina pectoris (principal); E78.2 Mixed hyperlipidemia; I10 Essential (primary) hypertension; K21.9 Gastro-esophageal reflux disease without esophagitis; R42 Dizziness and giddiness; Z79.01 Long term (current) use of anticoagulants; Z79.51 Long term (current) use of inhaled steroids; Z79.82 Long term (current) use of aspirin; Z79.899 Other long term (current) drug therapy; Z72.0 Tobacco use; Z88.8 Allergy status to other drugs, medicaments and biological substances; R94.31 Abnormal electrocardiogram [ECG] [EKG]; J44.9 Chronic obstructive pulmonary disease, unspecified
CPT/HCPCS: 80048; 85025; 93458; 99152; C1760; C1769; J1644; Q9967

== ENCOUNTER → 2020-06-21 14:28 | Outpatient (CLI) | payer BC, SELFPAY ==
--- NOTE | 2020-06-21 14:34 | XR_ITS ---
PROCEDURE: XR LUMBAR SPINE MIN 4V CLINICAL INDICATION: LUMBAR DISC DISEASE COMPARISON: CR LS5 LUMBAR SPINE 5 VIEWS from 10/15/2014 FINDINGS: There is normal alignment. There is mild chronic wedging of T11 and T12 with degenerative disc disease in the lower thoracic spine thoracolumbar junction. There is 2 mm anterolisthesis of L4 on. No acute fracture or dislocation. Minimal endplate hypertrophic changes are present at L4-L3 L2 and L1. There are mild facet arthritic changes at L5-S1. Right lateral bridging osteophytes are present at T11 and T12 IMPRESSION: Lumbar spondylosis as detailed above. Dictated by: Elbert Booker MD 06/21/2020 14:56 Elbert Booker MD in [place] 06/21/2020 14:56
== END ==
PROVIDERS: PCP Internal Medicine Adolescent Medicine; Visit Provider Internal Medicine Adolescent Medicine
DX: M51.16 Intervertebral disc disorders with radiculopathy, lumbar region (principal)
CPT/HCPCS: 72110

== ENCOUNTER → 2020-07-16 15:28 | Outpatient (CLI) | payer BC, SELFPAY ==
[2020-07-16 19:44] LABS: Chloride 104 mmol/L (98-107); Sodium 141 mmol/L (136-145)
[2020-07-16 19:45] LABS: Potassium 4.4 mmoL/L (3.5-5.1)
[2020-07-16 19:47] LABS: Blood Urea Nitrogen 21 mg/dl (9-20); Estimated Glomerular Filt Rate 76 ml/min (>60); GFR (African American) 92 ML/MIN (>60)
[2020-07-16 19:48] LABS: Anion Gap 12.4 mEq/L (5-15); Calcium 9.9 mg/dl (8.4-10.2); Carbon Dioxide 29 mmol/L (22.0-30.0); Glucose 137 mg/dl (74-100)
== END ==
PROVIDERS: Visit Provider Nurse Practitioner Family
DX: E78.2 Mixed hyperlipidemia (principal); R06.09 Other forms of dyspnea; R07.9 Chest pain, unspecified; R94.31 Abnormal electrocardiogram [ECG] [EKG]; E66.01 Morbid (severe) obesity due to excess calories; I10 Essential (primary) hypertension; I25.118 Atherosclerotic heart disease of native coronary artery with other forms of angina pectoris; F17.200 Nicotine dependence, unspecified, uncomplicated; K21.9 Gastro-esophageal reflux disease without esophagitis; Z95.5 Presence of coronary angioplasty implant and graft
CPT/HCPCS: 36415; 80048

== ENCOUNTER 2020-08-01 14:00 | Outpatient (RCR) | payer BC, SELFPAY ==
--- NOTE | 2020-07-05 10:06 | HMH.PTOPEV ---
PT Outpatient Evaluation Rehab PT Outpatient Evaluation Start: 07/05/20 09:21 Freq: Status: Active Protocol: Document 07/05/20 09:21 MELISSA (Rec: 07/05/20 10:06 MELISSA [id number]) Electronically Signed By Maico Zarco, PT 07/05/20 09:21 Outpatient Therapy Subjective History Subjective History Pt reports h/o chronic R LBP for ~2 yrs, with exacerbation over the last 2 months. Pt reports localized R sided LBP w/this episode, however, refers pain into L side of low back at its worst. PMH: DDD lumbar spine Chief Complaint Pain,Stiff Symptom Type Ache,Sharp,Dull Symptoms Relieved By Rest/Positioning Symptoms Aggravated By Physical Activity,Twisting, Lifting Prior Functional Limitations Lifting,Housework Current Functional Limitations Lifting,Housework,Bending/ Stooping Symptom Description Constant but Variable Level of pain today (0-10) 2 Pain scale - at its best (0-10) 2 Pain scale - at its worst (0-10) 10 Lumbopelvic Eval Posture Thoracic Spine Posture Standing Position Neutral Lumbar Spine Posture Standing Position Neutral Assistive device Assistive Devices None / NA Gait Observation General Gait Pattern Observation Antalgic Gait Palapation tenderness right lumbar spinal tenderness Yes: 3/4 paraspinal tenderness Yes: 3/4 buttock tenderness Yes: 3/4 Lumbar/Sacral Palpation Findings Tenderness,Muscle Guarding Accessory Movement L-spine Vertebrae Accessory Movements Central P/A [place] that Elicit Symptoms L2 bilateral L3 bilateral L4 bilateral L5 bilateral S1 bilateral Range of Motion Lumbar Spine Active Flexion Range of 0-70 Motion (degrees) Lumbar Spine Active Extension Range of 0 Motion (degrees) Left Lumbar Spine Lateral Flexion Active 0-30 Range of Motion (degrees) Right Lumbar Spine Lateral Flexion 0-20 Active Range of Motion (degrees) Lumbar Spine ROM Limitations Pain Manual Muscle Test Bilateral Knee Extension Strength Grade 5 Normal Knee Flexion Strength Grade 4 Good Hip Flexion Strength Grade 4- Good- Extensor Hallucis Longus Strength Grade 5 Normal Ankle Dorsiflexion Strength Grade 5 Normal Gastronemius/Soleus Strength Grade 5 Normal DTR Rt Patellar 1+ Lt Patellar 1+ Rt Gastroc/Soleus
== END 2020-08-01 14:05 | disposition home or self-care (01) ==
LOC: PT 14:00
PROVIDERS: PCP Internal Medicine Adolescent Medicine; Visit Provider Internal Medicine Adolescent Medicine
DX: M54.5 Low back pain (principal)
CPT/HCPCS: 97010; 97014; 97035; 97110; 97163; G0283

== ENCOUNTER → 2021-02-14 10:02 | Outpatient (CLI) | payer BC, SELFPAY ==
[2021-02-14 10:30] LABS: Basophils # 0.1 K/mm3 (0-0.2); Basophils % 0.6 % (0.1-2.0); Eosinophils # 0.2 K/mm3 (0.0-0.4); Eosinophils % 1.2 % (0.1-12.0); Hematocrit 41.9 % (42.0-52.0); Lymphocytes # 1.6 K/mm3 (0.7-4.5); Lymphocytes % 9.6 % (10-50); Mean Corpuscular HGB Conc 33.5 g/dL (31.8-35.4); Mean Corpuscular Hemoglobin 32.6 pg (27.0-31.2); Mean Corpuscular Volume 97.2 fl (80-94); Mean Platelet Volume 7.9 fl (7.4-10.4); Monocytes # 0.9 K/mm3 (0.1-1.0); Monocytes % 5.3 % (1.7-9.3); Neutrophils % 83.4 % (37.0-80.0); Platelet Count 287 K/mm3 (142-424); Red Blood Count 4.31 M/mm3 (4.60-6.20); Red Cell Distribution Width 13.7 % (11.5-17.5); White Blood Count 16.8 K/mm3 (4.8-10.8)
[2021-02-14 10:32] LABS: MANUAL DIFFERENTIAL MANUAL DIFFERENTIAL (MANUAL DIFF)
[2021-02-14 10:38] LABS: Eosinophils % 1 % (0-3); Lymphocytes % 3 % (10-50); Neutrophils % 88 % (42-76); Platelet Estimate Normal; RBC Morphology Normal; Total Cells Counted 100; Toxic Granulation 1+
[2021-02-14 10:53] LABS: Alanine Aminotransferase 33 U/L (12-78); Albumin Level 4.1 g/dl (3.5-5.0); Albumin/Globulin Ratio 1.6 (1.1-1.8); Alkaline Phosphatase 85 U/L (38-126); Anion Gap 9.5 mEq/L (5-15); Aspartate Amino Transferase 27 U/L (17-59); Bilirubin,Total 0.7 mg/dl (0.2-1.3); Blood Urea Nitrogen 19 mg/dl (9-20); Calcium 9.3 mg/dl (8.4-10.2); Carbon Dioxide 31 mmol/L (22.0-30.0); Chloride 104 mmol/L (98-107); Estimated Glomerular Filt Rate 68 ml/min (>60); GFR (African American) 82 ML/MIN (>60); Globulin 2.6 g/dL (1.3-3.2); Glucose 104 mg/dl (74-100); Magnesium 1.8 mg/dl (1.6-2.3); Potassium 4.5 mmoL/L (3.5-5.1); Sodium 140 mmol/L (136-145); Total Protein,Serum 6.7 g/dl (6.3-8.2)
[2021-02-14 11:03] LABS: NT Pro Brain Natriuretic Pep. 239 pg/mL (0-125)
== END ==
PROVIDERS: Visit Provider Internal Medicine Adolescent Medicine
DX: I50.20 Unspecified systolic (congestive) heart failure (principal)
CPT/HCPCS: 36415; 80053; 83735; 83880; 85007; 85025

== ENCOUNTER → 2021-02-21 14:37 | Outpatient (CLI) | payer BC, SELFPAY ==
[2021-02-21 14:54] LABS: Basophils # 0.1 K/mm3 (0-0.2); Basophils % 0.7 % (0.1-2.0); Eosinophils # 0.2 K/mm3 (0.0-0.4); Eosinophils % 1.5 % (0.1-12.0); Hematocrit 42.8 % (42.0-52.0); Hemoglobin 14.1 g/dL (14.1-18.0); Lymphocytes # 1.3 K/mm3 (0.7-4.5); Lymphocytes % 12.2 % (10-50); Mean Corpuscular Hemoglobin 31.8 pg (27.0-31.2); Mean Corpuscular Volume 96.3 fl (80-94); Mean Platelet Volume 8.2 fl (7.4-10.4); Monocytes # 0.6 K/mm3 (0.1-1.0); Monocytes % 5.7 % (1.7-9.3); Neutrophils # 8.3 K/mm3 (1.8-7.8); Neutrophils % 79.9 % (37.0-80.0); Platelet Count 327 K/mm3 (142-424); Red Blood Count 4.44 M/mm3 (4.60-6.20); Red Cell Distribution Width 13.8 % (11.5-17.5); White Blood Count 10.4 K/mm3 (4.8-10.8)
[2021-02-21 18:45] LABS: Anion Gap 10.3 mEq/L (5-15); Blood Urea Nitrogen 21 mg/dl (9-20); Calcium 8.7 mg/dl (8.4-10.2); Carbon Dioxide 30 mmol/L (22.0-30.0); Chloride 102 mmol/L (98-107); Estimated Glomerular Filt Rate 61 ml/min (>60); GFR (African American) 74 ML/MIN (>60); Glucose 135 mg/dl (74-100); Potassium 4.3 mmoL/L (3.5-5.1); Sodium 138 mmol/L (136-145)
== END ==
PROVIDERS: Visit Provider Urology
DX: R06.09 Other forms of dyspnea (principal); I20.9 Angina pectoris, unspecified; R60.9 Edema, unspecified; I10 Essential (primary) hypertension
CPT/HCPCS: 36415; 80048; 85025

== ENCOUNTER 2021-02-24 08:14 | Day surgery (SDC) | payer BC, SELFPAY ==
[2021-02-24] VITALS (13 sets, daily range): BP systolic 112–149; BP diastolic 71–89; PULSE 54–78; RESP 17–18; TEMP 36.8; O2SAT 66–98; BMI 52.6
--- NOTE | 2021-02-24 07:13 | IR_ITS ---
APPROVED REPORT Patient Location: Outpatient PROCEDURES Left heart catheterization Left ventriculogram Selective coronary angiogram INDICATION Known multivessel coronary disease, Progressive angina pectoris, Angina pectoris class III-IV Informed consent was obtained prior to the procedure. COMPLICATIONS None Estimated Blood Loss: Less than 10 mls TECHNIQUE One percent lidocaine used to anesthetize the right anterior aspect of the wrist. The right radial artery was accessed via the Seldinger technique. A 6 American sheath was placed in the right radial artery. 2.5 mg of verapamil, 800 mcg of nitroglycerin, 1mg Lidocaine and 5000 U Heparin were given through the arterial sheath. The trap catheter was also used to perform left heart catheterization, left ventriculogram and selective coronary angiogram. At the end of the procedure the sheath was removed good hemostasis was achieved using Traclet band, patient was transferred to the postop holding area in stable condition. ANGIOGRAPHIC RESULTS The left main artery Short normal The left anterior descending artery Is widely patent in the proximal segment with a widely patent stent with no evidence of in-stent restenosis and excellent proximal distal transitioning. There is an additional mid vessel 20 to 30% stenosis followed by mid vessel stent which is widely patent free of in-stent restenosis with excellent proximal distal transitioning. Very distal as the LAD wraps the apex there is a focal 90% stenosis. The vessel is 1.5 to 1.75 mm in diameter. Distal to the stenosis the LAD then trifurcates 1 cm distal to the the stenosis. The trifurcating vessels are all less than 1 mm in diameter The circumflex artery Is a nondominant vessel with stents in the proximal to mid segment which is widely patent free of in-stent restenosis with excellent proximal distal transitioning The right coronary artery Is a dominant vessel with stents in the proximal mid and distal segment which are widely patent in the proximal and mid segment with a distal concentric 30 to 40% in-stent restenosis distally. Distal to the stent there is excellent transitioning into the distal right coronary. The posterior descending artery then has a mid vessel 30% eccentric stenosis The POLK ventriculogram reveals Normal 65% The left ventricular end-diastolic pressure 35 mmHg IMPRESSION Coronary disease as described above Normal ejection fraction Severely elevated LVEDP which almost certainly is the etiology for patient's symptoms PLAN 1. Treatment of severe diastolic dysfunction with fluid restriction salt restriction loop diuretics weight loss and possibly evaluate for sleep apnea 2. Standard therapy for ischemic heart disease 3. Maximize antianginal medications 4. I do not recommend revascularizing the distal LAD. Stenting this vessel would be fraught with complications and it would not be clinically appropriate. Patient's angina almost certainly stems from the elevated LVEDP Electronically signed by : Dillon Sky, 02/24/2021 11:36:37
[2021-02-24 09:13] LABS: Coronavirus 19, PCR Not Detected (NotDetected); Influenza A, PCR Not Detected (NotDetected); Influenza B, PCR Not Detected (NotDetected)
== END 2021-02-24 14:29 | disposition home or self-care (01) ==
LOC: CATHLAB 08:15
PROVIDERS: PCP Internal Medicine Adolescent Medicine; Visit Provider Internal Medicine
DX: I25.118 Atherosclerotic heart disease of native coronary artery with other forms of angina pectoris (principal); Z95.5 Presence of coronary angioplasty implant and graft; E66.01 Morbid (severe) obesity due to excess calories; Z68.43 Body mass index [BMI] 50.0-59.9, adult; F17.210 Nicotine dependence, cigarettes, uncomplicated; Z79.899 Other long term (current) drug therapy; Z79.01 Long term (current) use of anticoagulants; I25.2 Old myocardial infarction; J44.9 Chronic obstructive pulmonary disease, unspecified
CPT/HCPCS: 93458; 99152; C1725; C1769; J1644; Q9967; U0003

== ENCOUNTER → 2021-03-10 09:47 | Outpatient (CLI) | payer BC, SELFPAY ==
[2021-03-10 10:33] LABS: Chloride 106 mmol/L (98-107); Potassium 4.1 mmoL/L (3.5-5.1); Sodium 140 mmol/L (136-145)
[2021-03-10 10:36] LABS: Blood Urea Nitrogen 17 mg/dl (9-20); Estimated Glomerular Filt Rate 68 ml/min (>60); GFR (African American) 82 ML/MIN (>60)
[2021-03-10 10:37] LABS: Anion Gap 13.1 mEq/L (5-15); Carbon Dioxide 25 mmol/L (22.0-30.0); Glucose 111 mg/dl (74-100)
[2021-03-10 21:59] LABS: Calcium 9.3 mg/dl (8.4-10.2)
== END ==
PROVIDERS: Visit Provider Physician Assistant
DX: R06.00 Dyspnea, unspecified (principal); R94.31 Abnormal electrocardiogram [ECG] [EKG]; E78.5 Hyperlipidemia, unspecified; I10 Essential (primary) hypertension; I20.9 Angina pectoris, unspecified; R60.9 Edema, unspecified; E66.01 Morbid (severe) obesity due to excess calories; F17.200 Nicotine dependence, unspecified, uncomplicated; K21.9 Gastro-esophageal reflux disease without esophagitis; Z95.5 Presence of coronary angioplasty implant and graft; Z68.41 Body mass index [BMI] 40.0-44.9, adult
CPT/HCPCS: 36415; 80048

== ENCOUNTER → 2021-03-13 07:47 | Outpatient (CLI) | payer BC, SELFPAY ==
--- NOTE | 2021-03-13 08:00 | US_ITS ---
PROCEDURE: US ABD. AORTA SCREENING CLINICAL INDICATION: former smoker COMPARISON: No exams were available for comparison FINDINGS: Normal caliber abdominal aorta proximal common iliacs. IMPRESSION: No evidence of abdominal aortic aneurysm Dictated by: Elbert Booker MD 03/13/2021 12:16 Elbert Booker MD in [place] 03/13/2021 12:16
--- NOTE | 2021-03-13 08:24 | CA_ITS ---
APPROVED REPORT Wrap Turner: KAVIN Laterality: Bilateral Study Quality: Good Indications: former smoker, dizziness Risk Factors Hyperlipidemia CAD, Patient reports dizziness and heacaches that started 3 years ago Doppler Spectral Velocity Analysis ECA (R) 103.30/9.70 cm/s ECA (L) 107.70/12.00 cm/s dICA (R) 84.80/30.20 cm/s dICA (L) 86.70/33.40 cm/s Jane (R) 82.80/27.60 cm/s Jane (L) 90.50/33.40 cm/s pICA (R) 74.50/22.50 cm/s pICA (L) 73.80/31.50 cm/s dCCA (R) 74.10/11.20 cm/s dCCA (L) 101.80/14.20 cm/s pCCA (R) 105.50/10.50 cm/s pCCA (L) 137.70/17.30 cm/s Vert (R) 49.40/13.50 cm/s Vert (L) 32.10/11.20 cm/s ICA/CCA 1.14 ICA/CCA 0.89 Findings Study suggests <20% stenosis of the right internal carotid artery. Study suggets <20% stenosis of the left internal carotid artery. Duplex evaluation demonstrates antegrade flow of the bilateral vertebral arteries. Conclusion Study suggests <20% stenosis of the right internal carotid artery. Study suggets <20% stenosis of the left internal carotid artery. Duplex evaluation demonstrates antegrade flow of the bilateral vertebral arteries. Electronically signed by : Elbert Booker MD 03/13/2021 16:06:03
== END ==
PROVIDERS: PCP Internal Medicine Adolescent Medicine; Visit Provider Physician Assistant
DX: R42 Dizziness and giddiness (principal); R06.00 Dyspnea, unspecified; I25.118 Atherosclerotic heart disease of native coronary artery with other forms of angina pectoris; I10 Essential (primary) hypertension; E78.5 Hyperlipidemia, unspecified; E66.01 Morbid (severe) obesity due to excess calories; F17.200 Nicotine dependence, unspecified, uncomplicated; K21.9 Gastro-esophageal reflux disease without esophagitis; R60.9 Edema, unspecified; R94.31 Abnormal electrocardiogram [ECG] [EKG]; Z95.5 Presence of coronary angioplasty implant and graft; Z13.6 Encounter for screening for cardiovascular disorders; Z68.41 Body mass index [BMI] 40.0-44.9, adult
CPT/HCPCS: 76705; 93880

== ENCOUNTER → 2021-04-02 14:31 | Outpatient (CLI) | payer BC, SELFPAY ==
--- NOTE | 2021-04-02 14:36 | MM_ITS ---
PROCEDURE: MM DIG MAMM BI DX W/CAD Digital Breast Tomosynthesis Included CLINICAL INDICATION: BREAST LESION Palpable abnormality right breast COMPARISON: US US BREAST RT COMPLETE from 04/02/2021 US US BREAST LT COMPLETE from 04/02/2021 TECHNIQUE: Standard CC and MLO images and 3D Tomosynthesis was obtained. R2 CAD reviewed. FINDINGS: The breasts are almost entirely fatty. Flame like density noted in the retroareolar region on both sides consistent with gynecomastia slightly greater on the right. No suspicious appearing mass, malignant-appearing microcalcification, architectural distortion, or skin thickening. Right breast ultrasound: Hypoechoic fibroglandular tissue noted in the retroareolar region. No suspicious mass or cyst evident. Left breast ultrasound: Hypoechoic fibroglandular retroareolar tissue noted consistent with gynecomastia. No mass or cyst evident. IMPRESSION: Bilateral gynecomastia right greater than left. No evidence of malignancy. BI-RAD Category: 2 Benign Finding FOLLOW-UP: Follow-up as clinically warranted. (A letter has been sent to the patient regarding results of the study.) Dictated by: Elbert Booker MD 04/16/2021 07:46 Elbert Booker MD in [place] 04/16/2021 07:46
== END ==
PROVIDERS: PCP Internal Medicine Adolescent Medicine; Visit Provider Internal Medicine Adolescent Medicine
DX: N64.9 Disorder of breast, unspecified (principal)
CPT/HCPCS: 76641; 77062; 77066; G0279

== ENCOUNTER → 2021-09-09 08:32 | Outpatient (CLI) | payer SELFPAY ==
--- NOTE | 2021-09-09 08:34 | CT_ITS ---
FINAL REPORT CLINICAL HISTORY: H/O NICOTINE DEPENDENCE quit x1 year ago smoked pipe = 2 ppd x 50 years FINDINGS: Low-Dose Chest CT CTDI vol (mGy): 2.90 DLP (mGy-cm): 108.12 Axial images were obtained from the lung apex to the mid abdomen by computed tomography. Low-dose protocol was utilized. FINDINGS: CHEST: There is no axillary adenopathy. There is no hilar or mediastinal adenopathy. The heart is proper size. There is no pericardial or pleural effusion. Limited images of the upper abdomen are unremarkable. Lung window images demonstrate mild emphysema. There is mild scarring. There is calcified granuloma in the right upper lobe. There is a 2 mm nodule in the right upper lobe seen on image 38. IMPRESSION: Lung RADS category 2. Recommend 12 month follow-up low-dose chest CT. Reviewed, Interpreted and Dictated by Arsenio Giraldo III, MD Transcribed by Anita Dacosta Authenticated by Arsenio Giraldo III, MD on 09/09/2021 11:32:49 AM [facility]
== END ==
PROVIDERS: PCP Internal Medicine Adolescent Medicine; Visit Provider Nurse Practitioner Family
DX: Z87.891 Personal history of nicotine dependence (principal); Z12.2 Encounter for screening for malignant neoplasm of respiratory organs
CPT/HCPCS: 71271

== ENCOUNTER → 2022-04-28 14:21 | Outpatient (CLI) | payer BC, SELFPAY ==
[2022-04-28 15:22] LABS: Basophils # 0.1 K/mm3 (0-0.2); Basophils % 0.6 % (0.1-2.0); Eosinophils # 0.1 K/mm3 (0.0-0.4); Hematocrit 45.9 % (42.0-52.0); Hemoglobin 14.7 g/dL (14.1-18.0); Lymphocytes # 1.2 K/mm3 (0.7-4.5); Lymphocytes % 11.4 % (10-50); Mean Corpuscular HGB Conc 31.9 g/dL (31.8-35.4); Mean Corpuscular Hemoglobin 32.2 pg (27.0-31.2); Mean Corpuscular Volume 100.9 fl (80-94); Mean Platelet Volume 7.8 fl (7.4-10.4); Monocytes # 0.7 K/mm3 (0.1-1.0); Monocytes % 5.9 % (1.7-9.3); Neutrophils # 8.9 K/mm3 (1.8-7.8); Neutrophils % 81.1 % (37.0-80.0); Platelet Count 367 K/mm3 (142-424); Red Blood Count 4.55 M/mm3 (4.60-6.20); Red Cell Distribution Width 13.6 % (11.5-17.5); White Blood Count 10.9 K/mm3 (4.8-10.8)
[2022-04-28 15:43] LABS: Alanine Aminotransferase 27 U/L (12-78); Albumin Level 3.9 g/dl (3.5-5.0); Alkaline Phosphatase 111 U/L (38-126); Anion Gap 15.1 mEq/L (5-15); Aspartate Amino Transferase 29 U/L (17-59); Bilirubin,Indirect 0.6 mg/dL (0.0-0.9); Bilirubin,Total 0.6 mg/dl (0.2-1.3); Bilirubin,Unconjugated 0.6 mg/dL (0.0-1.1); Blood Urea Nitrogen 13 mg/dl (9-20); Calcium 9.1 mg/dl (8.4-10.2); Carbon Dioxide 30 mmol/L (22.0-30.0); Chloride 100 mmol/L (98-107); Chol/HDL Ratio 3.9 (1-3.5); Cholesterol 164 mg/dl (140-200); Estimated Glomerular Filt Rate 75 ml/min (>60); GFR (African American) 91 ML/MIN (>60); Glucose 118 mg/dl (74-100); HDL Cholesterol 42 mg/dl (40-60); Magnesium 1.4 mg/dl (1.6-2.3); Potassium 4.1 mmoL/L (3.5-5.1); Sodium 141 mmol/L (136-145); Total Protein,Serum 6.6 g/dl (6.3-8.2); Triglycerides 132 mg/dl (30-150); VLDL Cholesterol 26 mg/dL (0-40)
[2022-04-28 15:53] LABS: Direct LDL Cholesterol 86.54 mg/dL (100-129); Troponin I < 0.01 ng/ml (0.00-0.034)
[2022-04-28 15:59] LABS: Free T4 (Free Thyroxine) 0.94 ng/dl (0.78-2.19)
[2022-04-28 16:13] LABS: Thyroid Stimulating Hormone 1.35 uIU/mL (0.465-4.68)
== END ==
LOC: LAB 14:22
PROVIDERS: Internal Medicine; PCP Internal Medicine Adolescent Medicine; Visit Provider Nurse Practitioner
DX: R06.09 Other forms of dyspnea (principal); R07.9 Chest pain, unspecified; I25.118 Atherosclerotic heart disease of native coronary artery with other forms of angina pectoris; I10 Essential (primary) hypertension; E78.2 Mixed hyperlipidemia; E66.01 Morbid (severe) obesity due to excess calories; Z95.5 Presence of coronary angioplasty implant and graft; Z68.44 Body mass index [BMI] 60.0-69.9, adult
CPT/HCPCS: 36415; 80048; 80061; 80076; 83735; 84439; 84443; 84484; 85025

== ENCOUNTER → 2022-05-04 06:36 | Outpatient (CLI) | payer BC, SELFPAY ==
--- NOTE | 2022-05-04 06:37 | CA_ITS ---
APPROVED REPORT Exam: Pharmacologic Technologist: Asmita Beauchamp Ht: 5 ft 1 in Wt: 321 lbs BSA: 2.31 m2 HR: 57 bpm BP: 113/63 mmHg Indications: Chest pain, Shortness of Air Medical History Medications: Omeprazole,,,,, Isosorbide,,,,, Aspirin,,,,, Metoprolol,,,,, Atorvastatin,,,,, SyMBICORT,,,,, TAMSULOSIN,,,,, Albuterol,,,,, CloPIdogrel,,,,, Nitroglycerin,,,,, SpirOnolactone,,,,, LaMotrigine,,,,, Stress Test Details Test: LEXISCAN HR Resting HR: 56 bpm Max Heart Rate (APMHR): 156.190679 bpm Max HR Achieved: 75 bpm Target HR (85% APMHR): 132.361681 bpm % of APMHR: 48.08 Recovery HR: 67 bpm BP Resting BP: 113.0/63.0 mmHg Max BP: 124.0/62.0 mmHg Recovery BP: 124.0/62.0 mmHg ECG Clinical Exercise duration: 04:16 min Highest Stage Achieved: Exercise capacity: 1.0 METs Stress ECG Conclusion Symptoms: Shortness of air. No chest pain Arrhythmias/Ectopy: Occasional PAC/PVC ST-T Changes: < 1.[address] changes Test Summary . . Myoview Injected . . . . Stop exercise at 04:16 . . Electronically signed by : Hill Maria MD 05/05/2022 07:00:11
--- NOTE | 2022-05-04 06:37 | CA_ITS ---
APPROVED REPORT EXAM: Comprehensive 2D, Doppler, and color-flow Echocardiogram Manager Of Patient: Gely Merida RT(R) Ht: 5 ft 11 in Wt: 330lbs BSA: 2.61 BP: 136/70 mmHg Indications: CP, ex smoker, edema, HTN, SOB, obesity, hyperlipidemia, CAD, GERD 2D Dimensions LVOT 2.40 cm (M/F) 1.5-2.5 LVEF (Marroquin's) 53.20 % M: 52 - 72 LV Volume 131.50 mL M: 62 - 150 LV Volume Index 50.38 mL/m2 M: 34 - 74 LA Volume 39.20 mL LA Volume Index 15.01 mL/m2 (M/F) 16-34 M-Mode Dimensions RVDd 3.29 cm (0.9-2.6) LA Diam 4.00 cm (1.9-4.0) LVDd 5.54 cm (3.5-5.7) Ao Diam 3.11 cm (2.0-3.7) LVDs 4.18 cm (3.5-5.7) IVSd 0.89 cm (0.6-1.1) PWd 1.13 cm (0.6-1.1) EF (Teich) 48.20% FS 24.50% EDV (Teich) 149.90 mL ESV (Teich) 77.70 mL LV Diastology E Decel Time 150.00 (160-240 msec) E/A Ratio 1.1 MED E' 6.00 (< 7 cm/sec) E'/MED E' Ratio 14.53 (>14) LAT E' 8.00 (<10 cm/sec) E/LAT E' Ratio 10.90 (>14) Mitral Valve MV E Max Elpidio. 87.00 (40-130 cm/s) MV A Velocity 76.00 (40-130 cm/s) E/A Ratio 1.15 MV Decel. Time 150.00 (160-240 ms) MV PHT 44.00 ms Left Ventricle Left atrium is mildly enlarged, left ventricle is normal size mild concentric left ventricular hypertrophy, estimated ejection fraction 55% with no regional wall motion abnormality, grade 2 diastolic dysfunction seen without tissue Doppler evidence of raise left atrial pressure. Right Ventricle Right atrium and right ventricle are mildly enlarged with normal contractility. Aortic Valve Aortic valve is minimally thickened and calcified without aortic stenosis or aortic insufficiency. Mitral Valve Mitral valve is grossly normal there is trace mitral regurgitation. Tricuspid Valve Tricuspid grossly normal, there is trace tricuspid regurgitation tricuspid regurgitation jet velocity is inadequate for calculation of the right ventricular systolic pressure. Pulmonic Valve Pulmonic valve is poorly visualized. Great Vessels Aortic root is normal size. Inferior vena cava is normal size with normal inspiratory collapse. Pericardium No significant pericardial effusion noted. Conclusion 1. Mild biatrial enlargement, normal left ventricular size, mild concentric left ventricular hypertrophy, estimated ejection fraction 55% with no regional wall motion abnormality, grade 2 diastolic dysfunction seen without tissue Doppler evidence of raise left atrial pressure. 2. Mildly enlarged right ventricle with normal contractility. 3. Trace mitral and tricuspid regurgitation. 4. No significant pericardial effusion. 5. Inferior vena cava is normal size with normal inspiratory collapse. Electronically signed by : Hill Maria MD 05/05/2022 06:31:18
--- NOTE | 2022-05-04 06:37 | NM_ITS ---
APPROVED REPORT Exam: Nuclear Stress Test Indication: Chest pain, SOB, CAD, HTN, High cholesterol, Former tobacco use, Family history Patient Location: Outpatient Stress Tech: Asmita Beauchamp [place] Tech:Ashley Olivo, ARRT, RT (R)(N) Ht: 5 ft 11 in Wt: 320 lbs HR: 56 bpm BP: 113/63 mmHg BSA: 2.58 m2 TID: 1.45 BMI: 44.6 History: Chest pain, SOB, CAD, HTN, High cholesterol, Former tobacco use, Family history Procedure: Patient received a 0.4 mg of intravenous Lexiscan, resting heart rate 56 bpm, resting blood pressure 113/63 mmHg, with Lexiscan maximum heart rate achived was 75 bpm which is Less than 85 % of the maximum predicted heart rate and blood pressure was 124/62 mmHg. With Lexiscan, patient denied any complaint of chest pain. Electrocardiogram Resting electrocardiogram shows sinus rhythm, with Lexiscan there is less than 1.[address] segment depression noted from the baseline EKG. The EKG portion of the Lexiscan is nondiagnostic. Cardiac Stress and Resting SPECT Images: Cardiac Stress and Resting SPECT images were obtained using technetium 99m Myoview 29.1 mCi stress and 10.84 mCi at rest. Patient unable to lay on stomach for prone images. Gated SPECT for analysis of segmental wall motion and calculation of the ejection fraction was present. Cardiac stress and rest SPECT images show reversible ischemia involving the inferior wall, there is transient ischemic dilatation of the left ventricle seen. Computer derived ejection fraction is 47% with mild inferior wall hypokinesis, right ventricle is mildly enlarged with normal contractility. Conclusion: 1. The EKG portion of the Lexiscan is nondiagnostic. 2. Scintigraphic evidence of reversible ischemia involving the inferior wall, computer derived ejection fraction 47% with segmental wall motion abnormality described above, there is transient ischemic dilatation of the left ventricle seen with ratio of 1.45. Right ventricle is mildly enlarged with normal contractility. 3. Abnormal Lexiscan Myoview study suggestive of multivessel coronary artery disease. Electronically signed by : Hill Maria MD 05/05/2022 07:03:29
--- NOTE | 2022-05-04 09:04 | HMH.ITSHM ---
Current Home Medications as stated by this patient Abe Maharaj JR or medical detail representative. []TAMSULOSIN SPIRONOLACTONE RANOLAZINE OMEPRAZOLE NITRO METOPROLOL LAMOTRIGINE ISOSORBIDE GABAPENTIN FUROSEMIDE DUTASTERIDE CLOPIDOGREL BUDESONIDE ATORVASTATIN ASA ARIPIPRAZOLE ALBUTEROL
== END ==
PROVIDERS: PCP Internal Medicine Adolescent Medicine; Visit Provider Nurse Practitioner Family
DX: R06.09 Other forms of dyspnea (principal); R07.9 Chest pain, unspecified; I25.118 Atherosclerotic heart disease of native coronary artery with other forms of angina pectoris; I10 Essential (primary) hypertension; E78.2 Mixed hyperlipidemia; E66.01 Morbid (severe) obesity due to excess calories; Z68.44 Body mass index [BMI] 60.0-69.9, adult; Z95.5 Presence of coronary angioplasty implant and graft
CPT/HCPCS: 78452; 93017; 93306; A9502; J2785

== ENCOUNTER 2022-05-21 08:09 | Day surgery (SDC) | payer BC, SELFPAY ==
[2022-05-21] VITALS (13 sets, daily range): BP systolic 103–156; BP diastolic 60–80; PULSE 56–84; RESP 12–18; O2SAT 95–99; BMI 46.7
--- NOTE | 2022-05-21 | IR_ITS ---
APPROVED REPORT Patient Location: Outpatient PROCEDURES Left heart catheterization Left ventriculogram Selective coronary angiogram INDICATION Known coronary artery disease, Angina pectoris, Abnormal Myoview, Informed consent was obtained prior to the procedure. COMPLICATIONS None Estimated Blood Loss: Less than 10 mls TECHNIQUE One percent lidocaine used to anesthetize the right anterior aspect of the wrist. The right radial artery was accessed via the Seldinger technique. A 6 Portuguese sheath was placed in the right radial artery. 2.5 mg of verapamil, 800 mcg of nitroglycerin, 1mg Lidocaine and 5000 U Heparin were given through the arterial sheath. The papa catheter was also used to perform left heart catheterization, left ventriculogram and selective coronary angiogram. At the end of the procedure the sheath was removed good hemostasis was achieved using Traclet band, patient was transferred to the postop holding area in stable condition. ANGIOGRAPHIC RESULTS The left main artery Normal The left anterior descending artery Has a stent in the proximal segment which is widely patent free of in-stent restenosis with excellent proximal distal transitioning. There are additional mid vessel 10 to 20% stenoses followed by a stent in the midportion distal to the second diagonal artery which is widely patent with mild diffuse concentric in-stent restenosis. Distally in the LAD as the LAD approaches the apex there is a focal 90% stenosis. ALEXANDER II flow is present down the LAD The circumflex artery Is nondominant yet still large and has a stent in the proximal segment which is widely patent free of in-stent restenosis with excellent proximal distal transitioning. The remaining circumflex artery has mild 10% luminal regularities The right coronary artery Is a dominant vessel and has a stent in the proximal segment which is widely patent free of in-stent restenosis with excellent proximal distal transitioning. The remaining LAD has diffuse 20% stenoses. Posterior descending artery has a mid vessel and distal 30 to 40% stenoses in areas where the vessel with less than 1 mm in diameter The POLK ventriculogram reveals Dilated ventricle ejection fraction 45% The left ventricular end-diastolic pressure 20 to 25 mmHg IMPRESSION Coronary disease as described above Reduced ejection fraction Elevated LVEDP PLAN 1. Continue medical management with risk factor modification and maximizing antianginal medications Electronically signed by : Dillon Sky MD 05/21/2022 10:48:23
[2022-05-21 08:28] LABS: Basophils # 0.1 K/mm3 (0-0.2); Basophils % 1.1 % (0.1-2.0); Eosinophils # 0.1 K/mm3 (0.0-0.4); Eosinophils % 1.2 % (0.1-12.0); Hematocrit 44.8 % (42.0-52.0); Hemoglobin 14.3 g/dL (14.1-18.0); Lymphocytes # 1.9 K/mm3 (0.7-4.5); Lymphocytes % 19.4 % (10-50); Mean Corpuscular Hemoglobin 32.5 pg (27.0-31.2); Mean Corpuscular Volume 101.7 fl (80-94); Mean Platelet Volume 8.9 fl (7.4-10.4); Monocytes # 0.6 K/mm3 (0.1-1.0); Monocytes % 5.8 % (1.7-9.3); Neutrophils % 72.4 % (37.0-80.0); Platelet Count 384 K/mm3 (142-424); Red Blood Count 4.41 M/mm3 (4.60-6.20); Red Cell Distribution Width 13.4 % (11.5-17.5); White Blood Count 9.6 K/mm3 (4.8-10.8)
[2022-05-21 08:44] LABS: Chloride 100 mmol/L (98-107); Potassium 3.6 mmoL/L (3.5-5.1); Sodium 143 mmol/L (136-145)
[2022-05-21 08:47] LABS: Anion Gap 13.6 mEq/L (5-15); Blood Urea Nitrogen 13 mg/dl (9-20); Carbon Dioxide 33 mmol/L (22.0-30.0); Creatinine Clearance Estimated 77 mL/min (50-200); Estimated Glomerular Filt Rate 75 ml/min (>60); GFR (African American) 91 ML/MIN (>60)
[2022-05-21 08:48] LABS: Calcium 8.7 mg/dl (8.4-10.2); Glucose 125 mg/dl (74-100)
== END 2022-05-21 13:48 | disposition home or self-care (01) ==
PROVIDERS: PCP Internal Medicine Adolescent Medicine; Visit Provider Internal Medicine
DX: I25.110 Atherosclerotic heart disease of native coronary artery with unstable angina pectoris (principal); R94.39 Abnormal result of other cardiovascular function study; F17.210 Nicotine dependence, cigarettes, uncomplicated; Z95.5 Presence of coronary angioplasty implant and graft; I10 Essential (primary) hypertension; E78.5 Hyperlipidemia, unspecified; R07.9 Chest pain, unspecified; E66.01 Morbid (severe) obesity due to excess calories; Z68.42 Body mass index [BMI] 45.0-49.9, adult; Z79.899 Other long term (current) drug therapy
CPT/HCPCS: 36415; 80048; 85025; 93458; 99152; C1725; C1760; C1769; J1644

== ENCOUNTER 2022-06-02 05:29 | Emergency (ER) | payer BC, SELFPAY ==
[2022-06-02] VITALS (9 sets, daily range): BP systolic 111–127; BP diastolic 59–69; PULSE 56–86; RESP 12–19; TEMP 36.6; O2SAT 93–97; BMI 45.9
--- NOTE | 2022-06-02 05:24 | ECG_ITS ---
APPROVED REPORT Exam: Resting ECG HR:74 bpm ECG Measurements Heart Rate 74 AXES RI 158 P 56 QRSd 121 QRS -58 QT 399 T 76 QTc 426 Conclusion SINUS RHYTHM LEFT ANTERIOR FASCICULAR BLOCK [QRS AXIS <= -45, QR IN I, RS IN II] LEFT VENTRICULAR HYPERTROPHY AND ST-T CHANGE [VOLTAGE CRITERIA PLUS ST/T ABNORMALITY] ABNORMAL ECG UNCONFIRMED REPORT Electronically signed by : Savage Reardon MD 06/02/2022 21:11:25
--- NOTE | 2022-06-02 05:33 | XR_ITS ---
PROCEDURE INFORMATION: Exam: XR Chest Exam date and time: 06/02/2022 5:31 AM Age: 62 years old Clinical indication: Sternal or substernal pain; Prior surgery; Surgery type: Stents; Patient HX: Chest pain that started bout 20 min ago; HX copd TECHNIQUE: Imaging protocol: Radiologic exam of the chest. Views: 2 views. COMPARISON: CR XR CHEST 2V 12/23/2019 10:18 AM FINDINGS: Lungs: Unremarkable. No consolidation. Pleural spaces: Unremarkable. No pleural effusion. No pneumothorax. Heart/Mediastinum: Unremarkable. No cardiomegaly. Bones/joints: Spinal fixation hardware is seen in the upper thoracic spine. IMPRESSION: No acute cardiopulmonary abnormality.
[2022-06-02 05:40] LABS: Basophils # 0.1 K/mm3 (0-0.2); Basophils % 0.6 % (0.1-2.0); Eosinophils # 0.2 K/mm3 (0.0-0.4); Eosinophils % 1.5 % (0.1-12.0); Hematocrit 42.8 % (42.0-52.0); Hemoglobin 13.9 g/dL (14.1-18.0); Lymphocytes # 2.1 K/mm3 (0.7-4.5); Lymphocytes % 18.4 % (10-50); Mean Corpuscular HGB Conc 32.6 g/dL (31.8-35.4); Mean Corpuscular Hemoglobin 32.9 pg (27.0-31.2); Monocytes # 0.7 K/mm3 (0.1-1.0); Monocytes % 5.8 % (1.7-9.3); Neutrophils # 8.4 K/mm3 (1.8-7.8); Neutrophils % 73.7 % (37.0-80.0); Platelet Count 363 K/mm3 (142-424); Red Blood Count 4.23 M/mm3 (4.60-6.20); Red Cell Distribution Width 13.5 % (11.5-17.5); White Blood Count 11.4 K/mm3 (4.8-10.8)
--- NOTE | 2022-06-02 05:42 | HMH.EDCP ---
Discharge Plan Disposition Patient Disposition: Home, Self-Care Chief Complaint: Chest Pain Prescriptions Prescriptions: No Action dutasteride 0.5 mg capsule 0.5 mg PO DAILY aripiprazole 30 mg tablet 20 mg PO DAILY nitroglycerin 0.4 mg tablet, sublingual 0.4 mg SUBLINGUAL Q5-15M PRN (Reason: Angina) Qty: 20 0RF omeprazole 40 mg capsule,delayed release(DR/EC) 40 mg PO DAILY 30 Days Qty: 30 Label Comments: TAKE 1 CAPSULE BY MOUTH EVERY DAY tamsulosin 0.4 mg capsule 0.4 mg PO DAILY 90 Days Qty: 90 albuterol sulfate 90 mcg/actuation HFA aerosol inhaler 2 puff INHALATION QIDP PRN (Reason: SOA) 25 Days Qty: 9 Label Comments: INHALE 2 PUFFS BY MOUTH FOUR TIMES DAILY * SHAKE WELL BEFORE USE * budesonide-formoterol 160-4.5 mcg/actuation HFA aerosol inhaler 1 puff INHALATION DAILY 30 Days Qty: 10 gabapentin 300 mg capsule 300 mg PO TID 90 Days Qty: 270 lamotrigine 100 mg tablet 150 mg PO BID 90 Days Qty: 270 aspirin [Adult Low Dose Aspirin] 81 mg tablet,delayed release (DR/EC) 81 mg PO DAILY Qty: 90 2RF furosemide 40 mg tablet 40 mg PO DAILY Rx Instructions: TAKE TWO TABLETS BY MOUTH EVERY DAY atorvastatin 80 mg tablet 80 mg PO DAILY Rx Instructions: TAKE 1 TABLET AT BEDTIME FOR CHOLESTEROL metoprolol succinate 100 mg tablet extended release 24 hr 100 mg PO DAILY Rx Instructions: TAKE ONE TABLET BY MOUTH EVERY DAY clopidogrel 75 mg tablet 75 mg PO DAILY Rx Instructions: TAKE ONE TABLET BY MOUTH EVERY DAY isosorbide mononitrate 60 mg tablet extended release 24 hr 60 mg PO DAILY Rx Instructions: TAKE ONE TABLET BY MOUTH EVERY DAY spironolactone 50 mg tablet 50 mg PO DAILY Rx Instructions: TAKE ONE TABLET BY MOUTH EVERY DAY ranolazine 1,000 mg tablet extended release 12 hr 1,000 mg PO DAILY Rx Instructions: TAKE 1 TABLET TWICE A DAY Referrals Follow up/Referrals: Jennifer Newton APRN [Primary Care Provider] - See instructions Clinical Impressions Clinical Impression: CAD (coronary artery disease), Chest pain Instructions Patient Instructions: DI for Chest Pain Discharge ED Provider: Art Altman Chest Pain HPI General Chief Complaint: Chest Pain Stated Complaint: chest pain Time Seen by Provider: 06/02/22 05:42 Mode of Arrival: Family Vehicle Source of Information: Patient, Spouse and Medical Record Limitations: No Limitations Description of Symptoms (Recalled from ER Triage Doc. by RN): Pt c/o left chest pain that radiates to R chest. Denies any new cough or SOA. Denies any dizziness or n/v/d. States he had a heart cath 2 wk ago that was ok per Dr. Sky . Pt does report a significat cardiac hx and has 8 previous cardiac stents. He took 2x nitro tabs @ home without relief. History of Present Illness HPI narrative: pt with acute chest pain this am - has hx of cad -recent ht cath- no relief with ntg x 2 MD complaint: chest pain indicative of cardiac Onset (ago): hour(s) Activity at onset: during rest Pain location: left chest Severity: moderate Relieving factors: nothing Risk Factors for CAD: Hypertension, Family Hx of CAD and Smoking Treatments prior to or on arrival for Cardiac Chest Pain: nitroglycerin DI Score for Non-Stemi Age of Patient: 60-69 years old Heart Rate: 50-69 bpm Systolic Blood Pressure: 120-139 mmhg Serum Creatinine: 0.80-1.19 mg/dl CHF [place] Class: I-No CHF Other Risk Factors: None Non-Stemi Risk Score: 102 Related Data Home Medications Medication Instructions Recorded Confirmed albuterol sulfate 90 mcg/actuation 2 puff inhalation QIDP PRN SOA 25 10/27/18 06/02/22 aerosol inhaler days #9 grams budesonide-formoterol HFA 160 1 puff inhalation DAILY Breathing 10/27/18 06/02/22 mcg-4.5 mcg/actuation aerosol problems 30 days #10 grams inhaler omeprazole 40 mg capsule,delayed 40 mg PO DAILY GERD 30 days
[2022-06-02 05:57] LABS: Anion Gap 15.5 mEq/L (5-15); Blood Urea Nitrogen 21 mg/dl (9-20); Calcium 8.5 mg/dl (8.4-10.2); Carbon Dioxide 29 mmol/L (22.0-30.0); Chloride 101 mmol/L (98-107); Creatinine Clearance Estimated 77 mL/min (50-200); Estimated Glomerular Filt Rate 75 ml/min (>60); GFR (African American) 91 ML/MIN (>60); Glucose 120 mg/dl (74-100); Potassium 3.5 mmoL/L (3.5-5.1); Sodium 142 mmol/L (136-145)
[2022-06-02 06:27] LABS: Troponin I < 0.01 ng/ml (0.00-0.034)
--- NOTE | 2022-06-02 07:34 | PC.NURSE ---
Rounded on pt and asked if they needed anything,pt asked for an update. spoke with the nurse and she advised that they were waiting to gather a second triponin at 0800. asked if they needed anything else and they advised everything was fine and thanked me for the update.
--- NOTE | 2022-06-02 08:03 | PC.NURSE ---
notified lab sent green top of blood up for second troponin, spoke with [facility]
[2022-06-02 08:38] LABS: Troponin I < 0.01 ng/ml (0.00-0.034)
--- NOTE | 2022-06-02 09:00 | PC.NURSE ---
notified dr. lora of second troponin result
== END 2022-06-02 09:28 | disposition home or self-care (01) ==
PROVIDERS: Emergency Provider Emergency Medicine; PCP Nurse Practitioner Family
DX: R07.9 Chest pain, unspecified (principal); I25.10 Atherosclerotic heart disease of native coronary artery without angina pectoris; Z95.818 Presence of other cardiac implants and grafts; Z79.899 Other long term (current) drug therapy; Z79.51 Long term (current) use of inhaled steroids; K21.9 Gastro-esophageal reflux disease without esophagitis; F41.9 Anxiety disorder, unspecified; E78.5 Hyperlipidemia, unspecified; I10 Essential (primary) hypertension; Z87.891 Personal history of nicotine dependence; F12.90 Cannabis use, unspecified, uncomplicated
CPT/HCPCS: 71046; 80048; 84484; 85025; 93005; 99284

== ENCOUNTER → 2022-10-22 08:58 | Outpatient (CLI) | payer BC, SELFPAY ==
[2022-10-22 09:45] LABS: Basophils # 0.1 K/mm3 (0-0.2); Basophils % 0.7 % (0.1-2.0); Eosinophils # 0.1 K/mm3 (0.0-0.4); Eosinophils % 1.6 % (0.1-12.0); Hematocrit 40.9 % (42.0-52.0); Lymphocytes # 1.7 K/mm3 (0.7-4.5); Lymphocytes % 20.8 % (10-50); Mean Corpuscular HGB Conc 31.8 g/dL (31.8-35.4); Mean Corpuscular Volume 103.7 fl (80-94); Mean Platelet Volume 8.3 fl (7.4-10.4); Monocytes # 0.3 K/mm3 (0.1-1.0); Monocytes % 3.1 % (1.7-9.3); Neutrophils # 5.9 K/mm3 (1.8-7.8); Neutrophils % 73.7 % (37.0-80.0); Platelet Count 360 K/mm3 (142-424); Red Blood Count 3.94 M/mm3 (4.60-6.20); Red Cell Distribution Width 15.2 % (11.5-17.5)
[2022-10-22 10:00] LABS: Anion Gap 8.5 mEq/L (5-15); Blood Urea Nitrogen 14 mg/dl (9-20); Calcium 8.2 mg/dl (8.4-10.2); Carbon Dioxide 34 mmol/L (22.0-30.0); Chloride 99 mmol/L (98-107); Estimated Glomerular Filt Rate 67 ml/min (>60); GFR (African American) 82 ML/MIN (>60); Glucose 103 mg/dl (74-100); Phosphorous 2.7 mg/dl (2.5-4.5); Potassium 3.5 mmoL/L (3.5-5.1); Sodium 138 mmol/L (136-145); Uric Acid 9.3 mg/dl (3.5-8.5)
[2022-10-22 16:20] LABS: Microscopic, Urine URINE MICROSCOPIC (MICROSCOPIC)
[2022-10-22 16:49] LABS: Appearance,Urine SL CLOUDY (Clear); Bilirubin,Urine Negative (Negative); Blood, Urine Negative (Negative); Color,Urine YELLOW (Yellow); Glucose,Urine (UA) Negative (Negative); Ketones,Urine Negative (Negative); Leukocyte Esterase,Urine 2+ (Negative); Nitrate,Urine Negative (Negative); Protein,Urine Negative (Negative); Specific Gravity, Urine <= 1.005 (1.005-1.030)
[2022-10-22 16:58] LABS: Creatinine,Urine Random 102 mg/dL (Not Estab.)
[2022-10-22 17:20] LABS: Bacteria,Urine 1+ /lpf
== END ==
LOC: LAB 09:00
PROVIDERS: PCP Nurse Practitioner Family; Visit Provider Internal Medicine Nephrology
DX: N28.9 Disorder of kidney and ureter, unspecified (principal); N39.0 Urinary tract infection, site not specified; B95.2 Enterococcus as the cause of diseases classified elsewhere
CPT/HCPCS: 36415; 80069; 81001; 82570; 84155; 84550; 85025; 87086; 87088; 87186

== ENCOUNTER → 2022-11-16 07:18 | Outpatient (CLI) | payer BC, SELFPAY ==
--- NOTE | 2022-11-16 07:23 | US_ITS ---
FINAL REPORT TECHNIQUE: Ultrasound images of the kidneys and bladder were obtained. CLINICAL HISTORY: ABNORMAL RENAL FUNCTION FINDINGS: The right kidney measures 11 cm in length. It is normal in echogenicity. There is no hydronephrosis. The left kidney measures 10.4 cm in length. There is a 1.3 cm left renal cyst. There is left renal cortical thinning. There is no hydronephrosis. The urinary bladder is unremarkable. IMPRESSION: Left renal cyst and left renal cortical thinning. No hydronephrosis. Reviewed, Interpreted and Dictated by Arsenio Giraldo III, MD Transcribed by Iliana Flores Authenticated and . [facility]
== END ==
LOC: RAD 07:18
PROVIDERS: PCP Nurse Practitioner Family; Visit Provider Internal Medicine Nephrology
DX: N28.9 Disorder of kidney and ureter, unspecified (principal)
CPT/HCPCS: 76770

== ENCOUNTER → 2022-12-16 12:13 | Outpatient (CLI) | payer BC, SELFPAY ==
[2022-12-16 12:18] LABS: Microscopic, Urine URINE MICROSCOPIC (MICROSCOPIC)
[2022-12-16 12:55] LABS: Appearance,Urine CLEAR (Clear); Blood, Urine Negative (Negative); Color,Urine YELLOW (Yellow); Glucose,Urine (UA) Negative (Negative); Ketones,Urine Negative (Negative); Leukocyte Esterase,Urine Negative (Negative); Nitrate,Urine Negative (Negative); PH,Urine 6.5 (5.0-8.5); Protein,Urine Negative (Negative)
[2022-12-16 13:01] LABS: Bilirubin,Urine 1+ (Negative)
[2022-12-16 13:07] LABS: Creatinine,Urine Random 138 mg/dL (Not Estab.)
[2022-12-16 13:10] LABS: Bacteria,Urine 1+ /lpf
[2022-12-16 13:13] LABS: Albumin Level 3.7 g/dl (3.5-5.0); Chloride 97 mmol/L (98-107); Potassium 3.4 mmoL/L (3.5-5.1); Sodium 140 mmol/L (136-145)
[2022-12-16 13:15] LABS: Blood Urea Nitrogen 14 mg/dl (9-20); Estimated Glomerular Filt Rate 85 ml/min (>60); GFR (African American) 103 ML/MIN (>60)
[2022-12-16 13:16] LABS: Anion Gap 15.4 mEq/L (5-15); Calcium 8.7 mg/dl (8.4-10.2); Carbon Dioxide 31 mmol/L (22.0-30.0); Glucose 111 mg/dl (74-100); Phosphorous 2.5 mg/dl (2.5-4.5)
== END ==
PROVIDERS: PCP Nurse Practitioner Family; Visit Provider Internal Medicine Nephrology
DX: N28.9 Disorder of kidney and ureter, unspecified (principal)
CPT/HCPCS: 36415; 80069; 81001; 82570; 84155

== ENCOUNTER → 2023-04-09 11:56 | Outpatient (CLI) | payer MEDICARE, SELFPAY ==
[2023-04-09 12:10] LABS: Microscopic, Urine URINE MICROSCOPIC (MICROSCOPIC)
[2023-04-09 12:24] LABS: Appearance,Urine CLEAR (Clear); Bilirubin,Urine Negative (Negative); Blood, Urine Negative (Negative); Color,Urine YELLOW (Yellow); Glucose,Urine (UA) Negative (Negative); Ketones,Urine Negative (Negative); Leukocyte Esterase,Urine Negative (Negative); Nitrate,Urine Negative (Negative); Protein,Urine Negative (Negative)
[2023-04-09 12:30] LABS: Basophils % 0.4 % (0.1-2.0); Eosinophils # 0.1 K/mm3 (0.0-0.4); Eosinophils % 1.4 % (0.1-12.0); Hematocrit 46.8 % (42.0-52.0); Hemoglobin 14.4 g/dL (14.1-18.0); Lymphocytes # 1.9 K/mm3 (0.7-4.5); Lymphocytes % 18.7 % (10-50); Mean Corpuscular HGB Conc 30.8 g/dL (31.8-35.4); Mean Corpuscular Volume 107.1 fl (80-94); Mean Platelet Volume 7.7 fl (7.4-10.4); Monocytes # 0.3 K/mm3 (0.1-1.0); Monocytes % 2.7 % (1.7-9.3); Neutrophils # 7.8 K/mm3 (1.8-7.8); Neutrophils % 76.8 % (37.0-80.0); Platelet Count 422 K/mm3 (142-424); Red Blood Count 4.37 M/mm3 (4.60-6.20); Red Cell Distribution Width 14.1 % (11.5-17.5); White Blood Count 10.2 K/mm3 (4.8-10.8)
[2023-04-09 12:37] LABS: Creatinine,Urine Random 170 mg/dL (Not Estab.); Squamous Epithelial Cell,Urine Occasional #/hpf (0-5)
[2023-04-09 13:03] LABS: Albumin Level 4.1 g/dl (3.5-5.0); Chloride 105 mmol/L (98-107); Potassium 3.9 mmoL/L (3.5-5.1); Sodium 143 mmol/L (136-145)
[2023-04-09 13:06] LABS: Anion Gap 15.9 mEq/L (5-15); Blood Urea Nitrogen 16 mg/dl (9-20); Carbon Dioxide 26 mmol/L (22.0-30.0); Estimated Glomerular Filt Rate 67 ml/min (>60); GFR (African American) 82 ML/MIN (>60); Phosphorous 3.9 mg/dl (2.5-4.5)
[2023-04-09 13:07] LABS: Calcium 10.1 mg/dl (8.4-10.2); Glucose 125 mg/dl (74-100)
== END ==
PROVIDERS: PCP Nurse Practitioner Family; Visit Provider Student in an Organized Health Care Education/Training Program
DX: N17.9 Acute kidney failure, unspecified (principal)
CPT/HCPCS: 36415; 80069; 81001; 82570; 84155; 85025

== ENCOUNTER → 2023-06-03 14:30 | Outpatient (CLI) | payer MEDICARE, SELFPAY ==
--- NOTE | 2023-06-03 14:35 | XR_ITS ---
FINAL REPORT CLINICAL HISTORY: AD KNEE PAIN,RHEUMATOID ARTHRITIS COMPARISON: None FINDINGS: Three views of the left knee reveal no evidence of fracture or dislocation. The bony alignment is normal. There is mild degenerative change. There is no evidence of joint effusion. No localized soft tissue abnormality is seen. IMPRESSION: Mild degenerative change without acute abnormality identified. Reviewed, Interpreted and Dictated by Arsenio Giraldo III, MD Transcribed by Imani Voss Authenticated and [facility]
--- NOTE | 2023-06-03 14:35 | XR_ITS ---
FINAL REPORT CLINICAL HISTORY: AD KNEE PAIN,RHEUMATOID ARTHRITIS COMPARISON: None FINDINGS: Three views of the right knee reveal no evidence of fracture or dislocation. The bony alignment is normal. There is mild degenerative change. There is no evidence of joint effusion. No localized soft tissue abnormality is identified. IMPRESSION: Mild degenerative change without acute abnormality identified. Reviewed, Interpreted and Dictated by Arsenio Giraldo III, MD Transcribed by Imani Voss Authenticated and . [facility]
--- NOTE | 2023-06-03 14:35 | XR_ITS ---
FINAL REPORT CLINICAL HISTORY: LUMBAGO W/SCIATICA COMPARISON: None FINDINGS: LUMBOSACRAL SPINE SERIES Five views of the lumbosacral spine were obtained. There is no fracture present. Mild and moderate degenerative change. Mild anterolisthesis of L4 on L5. IMPRESSION: Mild and moderate degenerative change without acute process. Reviewed, Interpreted and Dictated by Arsenio Giraldo III, MD Transcribed by Imani Voss Authenticated and [facility]
== END ==
LOC: RAD 14:31
PROVIDERS: PCP Nurse Practitioner Family; Visit Provider Nurse Practitioner Family
DX: M25.561 Pain in right knee (principal); M25.562 Pain in left knee; G89.29 Other chronic pain; M05.79 Rheumatoid arthritis with rheumatoid factor of multiple sites without organ or systems involvement; M54.41 Lumbago with sciatica, right side
CPT/HCPCS: 72110; 73562

== ENCOUNTER 2023-07-06 11:00 | Outpatient (RCR) | payer MEDICARE, SELFPAY ==
--- NOTE | 2023-06-17 15:44 | HMH.PTOPEV ---
PT Outpatient Evaluation Rehab PT Outpatient Evaluation Start: 06/17/23 14:52 Freq: Status: Active Protocol: Document 06/17/23 14:53 ELLAROWDY (Rec: 06/17/23 15:44 PRIETO [id number]) E-signed By Minnie Loving, PT Outpatient Therapy Subjective History Subjective History Pt is a 63 y/o male who reports chronic L>R medial knee pain for ~2 years. Pt reports he was diagnosed with RA in October-November of this year. Pt reports he started taking medication for RA which helped with his feet pain but hasn't helped his knee pain yet. Pt reports he had xrays of both knees showing mild degenerative changes. Pt reports pain is worse with prolonged walking and squatting. 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 Pt denies taking pain medication because he smokes marijuana which he states helps with his pain. Pt reports a painful pop when he extends his knees and his knees often give out on him. Pt also reports he was diagnosed with chemically induced vertigo which results in symptoms such as dizziness , light-headedness and blacking out when he changes positions. Medical History: Hypertension, COPD New diagnosis of cancer in past 12 No months? Chief Complaint Pain,Clicks,Swelling,Gives out /Unstable,Weakness Symptom Type Ache,Sharp,Dull Symptoms Relieved By Rest/Positioning,OTC Meds Symptoms Aggravated By Standing,Physical Activity, Walking Prior Functional Limitations None Current Functional Limitations Sleeping,Recreation Activity, Walking,Stairs Symptom Description Constant but Variable Level of pain today (0-10) 3 Pain scale - at its best (0-10) 3 Pain scale - at its worst (0-10) 8 Hip/Knee Eval Gait Observation General Gait Pattern Observation Wide Based Gait Assistive Device Assistive Devices None / NA Palpation Tenderness bilateral Knee Palpation Overall Comment medial joint lines, med femoral condyles, patellar tendon MMT left Hip Flexion Strength Grade 4 Good Hip Abduction Strength Grade 4 Good Hip Adduction Strength Grade 4 Good Hip Extension Strength Grade 4 Good Knee Extension Strength Grade 5 Normal Knee Flexion Strength Grade 4 Good right Hip Flexion Strength Grade 4 Good Hip Abduction Strength Grade 4 Good Hip Adduction Strength Grade 4 Good Knee Extension Strength Grade 5 Normal Knee Flexion Strength Grade 5 Normal ROM left Knee Extension Active Range of Motion ( 0 degrees) Knee Flexion Active Range of Motion ( 120 degrees) right Knee Extension Active Range of Motion ( 0 degrees) Knee Flexion Active Range of Motion ( 125 degrees) Effusion joint effusion knee exam standard left Mid - Patellar Circumerential Measure ( 47 cm) Special Tests Knee Anterior Jace Test Negative Left,Negative Right Knee Posterior Sag ([place] Drawer) Test Negative Left,Negative Right Knee Valgus Stress Test Negative Left,Negative Right Knee Varus Stress Test Negative Left,Negative Right Knee Josh Test Negative Right,Positive Left Lower Extremity Functional Index Activities Today, do you or would you have any difficulty at all with: a.Any of your usual work, housework or Quite a bit of difficulty school activities b. Your usual hobbies, recreational or Extreme difficulty or unable sporting activities to perform activity c. Getting into or out of the bath A little bit of difficulty d. Walking between rooms A little bit of difficulty e. Putting on your shoes or socks A little bit of difficulty f. Squatting Extreme difficulty or unable to perform activity g. Lifting an object, like a bag of A little bit of difficulty groceries from the floor h. Performing light activities around No difficulty your home i. Performing heavy activities around Moderate difficulty your home j. Getting into or out of a car Moderate difficulty k. Walking 2 blocks Quite a bit of difficulty l. Walking a mile Extreme difficulty or unable to perform activity m. Going up or down 10 stairs (about 1 Quite a bit of difficulty flight of stairs) n. Standing for 1 hour Extreme difficulty or unable to perform activity o. Sitting for 1 hour Extreme difficulty or unable to perform activity p. Running on even ground Extreme difficulty or unable to perform activity q. Running on uneven ground Extreme difficulty or unable to perform activity r. Making sharp turns while running fast Extreme difficulty or unable to perform activity s. Hopping Extreme difficulty or unable to perform activity t. Rolling over in bed Quite a bit of difficulty LEFI Score Lower Extremity Functional Index Score 24 Outpatient Therapy Assessment Impairments Problems/Impairmments Palpation Tenderness,Impaired Range of Motion,Impaired Strength,Impaired Walking, Impaired Household Care, Impaired Stair Climbing, Impaired Squatting,Subjective C/O Pain,Impaired Self Care/ Self Management Prognosis Rehab Potential Good Clinical Impression Consistent with Diagnosis Yes Short Term Goals Number of Weeks 3 Improve LEFI Score Yes: Improve score to at least 35/80 to improve overall QOL Decrease Subjective C/O Pain Yes: Improve pain at worst to 8/10 to improve overall QOL Patient to be Ind w/ HEP Yes Residential Goals Number of Weeks 6 Increase Range of Motion Yes: L knee AROM 0-125 Increase Strength Yes: Improve BLE MMT to 5/5 grossly to assist with function Increase Ability to Walk Yes: 10' with pain 6/10 or less to assist with ADLs Improve Ability to Squat Yes: 10 sit to stand with pain 6/10 or less Improve LEFI Score Yes: Improve score to at least 50/80 to improve overall QOL Decrease Subjective C/O Pain Yes: Improve pain at worst to 6/10 to improve overall QOL Patient to be Ind w/ HEP Yes Outpatient Therapy Plan of Care Treatment Plan May Include Therapeutic Exercise Including Home Yes Exercise Program Manual Therapy Techniques Yes Neuromuscular Re-education Yes Therapeutic Activities to Return to Yes Previous Functional/Work Level ADL/Self Care Education Yes Dry Needling Yes Thermal Modalities Yes Electrical Stimulation Yes Ultrasound/Phonophoresis Yes Iontophoresis Yes Orthotics/Bracing/Splinting Yes Vasopneumatic Compression Pump Yes Massage Yes Eval/Re-Eval Yes Frequency Times per week 1-2 Duration Number of Weeks 4-6 Addendums This patient is a candidate for social No or vocational rehab? Patient/Guardian verbally acknowledges Yes understanding of treatment program and consents to further treatment? Patient/Guardian verbally acknowledges Yes understanding of diagnosis, prognosis and goals for treatment? Eval Complexity PT Charges 27663 - Low Complexity Shoulder/Elbow Eval Shoulder Objective Measurements Elbow Objective Measurements PHYSICIAN CERTIFICATION: I certify the specified therapy services for Abe Nic Maharaj JR are required, authorized, and reviewed every 30 days.
== END 2023-07-06 12:00 | disposition home or self-care (01) ==
LOC: PT 11:00
PROVIDERS: PCP Nurse Practitioner Family; Visit Provider Nurse Practitioner Family
DX: M25.561 Pain in right knee (principal); M25.562 Pain in left knee
CPT/HCPCS: 97110; 97163; 97530

== ENCOUNTER 2023-09-01 12:43 | Outpatient (CLI) | payer MEDICARE, SELFPAY ==
[2023-09-01 13:34] LABS: Basophils # 0.1 K/mm3 (0-0.2); Basophils % 0.6 % (0.1-2.0); Eosinophils # 0.2 K/mm3 (0.0-0.4); Eosinophils % 1.7 % (0.1-12.0); Hematocrit 41.4 % (42.0-52.0); Hemoglobin 13.6 g/dL (14.1-18.0); Lymphocytes # 1.8 K/mm3 (0.7-4.5); Lymphocytes % 20.6 % (10-50); Mean Corpuscular HGB Conc 32.9 g/dL (31.8-35.4); Mean Corpuscular Hemoglobin 34.4 pg (27.0-31.2); Mean Corpuscular Volume 104.6 fl (80-94); Mean Platelet Volume 7.8 fl (7.4-10.4); Monocytes # 0.2 K/mm3 (0.1-1.0); Monocytes % 2.5 % (1.7-9.3); Neutrophils # 6.6 K/mm3 (1.8-7.8); Neutrophils % 74.6 % (37.0-80.0); Platelet Count 329 K/mm3 (142-424); Red Blood Count 3.96 M/mm3 (4.60-6.20); Red Cell Distribution Width 14.3 % (11.5-17.5); White Blood Count 8.8 K/mm3 (4.8-10.8)
[2023-09-01 14:06] LABS: Chloride 100 mmol/L (98-107); Potassium 3.6 mmoL/L (3.5-5.1); Sodium 139 mmol/L (136-145)
[2023-09-01 14:08] LABS: Alanine Aminotransferase 38 U/L (12-78); Aspartate Amino Transferase 37 U/L (17-59); Blood Urea Nitrogen 11 mg/dl (9-20); Estimated Glomerular Filt Rate 75 ml/min (>60); GFR (African American) 91 ML/MIN (>60)
[2023-09-01 14:09] LABS: Albumin Level 3.6 g/dl (3.5-5.0); Albumin/Globulin Ratio 1.5 (1.1-1.8); Alkaline Phosphatase 64 U/L (38-126); Anion Gap 11.6 mEq/L (5-15); Bilirubin,Total 0.9 mg/dl (0.2-1.3); Calcium 7.4 mg/dl (8.4-10.2); Carbon Dioxide 31 mmol/L (22.0-30.0); Globulin 2.4 g/dL (1.3-3.2); Glucose 103 mg/dl (74-100)
== END 2023-09-01 23:59 ==
LOC: LAB 12:44
PROVIDERS: PCP Nurse Practitioner Family; Visit Provider Nurse Practitioner Family
DX: R11.10 Vomiting, unspecified (principal); R19.7 Diarrhea, unspecified
CPT/HCPCS: 36415; 80053; 85025

== ENCOUNTER 2023-09-02 14:37 | Outpatient (CLI) | payer MEDICARE, SELFPAY ==
[2023-09-02 14:42] LABS: Adenovirus F 40/41, stool Not Detected (NotDetected); Astrovirus Not Detected (NotDetected); Clostridium Difficile A/B, PCR Not Detected (NotDetected); Cryptosporidium Not Detected (NotDetected); Cyclospora Cayetanesis Not Detected (NotDetected); Entamoeba histolytica Not Detected (NotDetected); Enteroaggregative E coli Not Detected (NotDetected); Enteropathogenic E coli Not Detected (NotDetected); Enterotoxigenic E coli Not Detected (NotDetected); Giardia lamblia Not Detected (NotDetected); Norovirus Not Detected (NotDetected); Plesimonas Shigalloides, PCR Not Detected (NotDetected); Rotavirus A Not Detected (NotDetected); Salmonella, PCR Not Detected (NotDetected); Sapovirus Not Detected (NotDetected); Shiga-like toxin E coli Not Detected (NotDetected); Shigella Enterovasive E coli Not Detected (NotDetected); Vibrio Cholerae Not Detected (NotDetected); Vibrio, PCR Not Detected (NotDetected); Yersinia Entercolitica, PCR Not Detected (NotDetected)
[2023-09-06 14:23] LABS: Campylobacter Detected (NotDetected)
== END 2023-09-02 23:59 ==
PROVIDERS: PCP Nurse Practitioner Family; Visit Provider Nurse Practitioner Family
DX: R19.7 Diarrhea, unspecified (principal); R11.10 Vomiting, unspecified; A04.5 Campylobacter enteritis
CPT/HCPCS: 87506

== ENCOUNTER 2023-09-26 08:51 | Emergency (ER) | payer MEDICARE, SELFPAY ==
[2023-09-26 09:10] VITALS: BMI 41.5
--- NOTE | 2023-09-26 09:11 | XR_ITS ---
PROCEDURE INFORMATION: Exam: XR Right Foot Exam date and time: 09/26/2023 9:08 AM Age: 63 years old Clinical indication: Difficulty in walking and limp and other: Pain TECHNIQUE: Imaging protocol: Radiologic exam of the right foot. Views: 3 or more views. COMPARISON: CR XR KNEE RT 3V 06/03/2023 2:41 PM FINDINGS: Bones/joints: No acute fracture. Hallux valgus deformity. There is also valgus angulation at the 2nd and 3rd MTP joints. Moderate 1st MTP joint degenerative changes. Calcaneal enthesopathy. Soft tissues: Normal. IMPRESSION: 1. No acute fracture. 2. Hallux valgus deformity. There is also valgus angulation at the 2nd and 3rd MTP joints.
--- NOTE | 2023-09-26 09:14 | EXP.UTC ---
Discharge Plan Disposition Patient Disposition: Home, Self-Care Condition: Good Prescriptions Prescriptions: No Action dutasteride 0.5 mg capsule 0.5 mg PO DAILY aripiprazole 30 mg tablet 20 mg PO DAILY famotidine [Pepcid] 20 mg tablet 20 mg PO BID Qty: 60 2RF tamsulosin 0.4 mg capsule 0.4 mg PO DAILY 90 Days Qty: 90 albuterol sulfate 90 mcg/actuation HFA aerosol inhaler 2 puff INHALATION QIDP PRN (Reason: SOA) 25 Days Qty: 9 Patient Comments: INHALE 2 PUFFS BY MOUTH FOUR TIMES DAILY * SHAKE WELL BEFORE USE * budesonide-formoterol 160-4.5 mcg/actuation HFA aerosol inhaler 1 puff INHALATION DAILY 30 Days Qty: 10 gabapentin 300 mg capsule 300 mg PO TID 90 Days Qty: 270 lamotrigine 100 mg tablet 150 mg PO BID 90 Days Qty: 270 methotrexate sodium 2.5 mg tablet 2.5 mg PO WEEKLY Patient Comments: TAKE EIGHT TABLETS BY MOUTH EVERY WEEK folic acid 1 mg tablet 1 mg PO DIRECTED Patient Comments: TAKE ONE TABLET BY MOUTH EVERY DAY EXCEPT FOR THE DAY you take methotrexate ergocalciferol (vitamin D2) 1,250 mcg (50,000 unit) capsule 1,250 mcg PO DAILY spironolactone 50 mg tablet 50 mg PO DAILY aspirin [Adult Low Dose Aspirin] 81 mg tablet,delayed release (DR/EC) 81 mg PO DAILY Qty: 90 2RF atorvastatin 80 mg tablet 80 mg PO DAILY Qty: 90 3RF Rx Instructions: TAKE 1 TABLET AT BEDTIME FOR CHOLESTEROL nitroglycerin 0.4 mg tablet, sublingual See Rx Instructions .ROUTE .COMPLEX Qty: 25 0RF Dose Instruction: DISSOLVE 1 TABLET UNDER THE TONGUE EVERY 5 MINUTES NEEDED FOR CHEST PAIN. DO NOT EXCEED A TOTAL OF 3 DOSES IN 15 MINUTES. IF NO RELIEF AFTER 3 DOSES CALL 911/GO TO ER Rx Instructions: DISSOLVE 1 TABLET UNDER THE TONGUE EVERY 5 MINUTES NEEDED FOR CHEST PAIN. DO NOT EXCEED A TOTAL OF 3 DOSES IN 15 MINUTES. IF NO RELIEF AFTER 3 DOSES CALL 911/GO TO ER furosemide 40 mg tablet See Rx Instructions .ROUTE .COMPLEX Qty: 60 5RF Dose Instruction: TAKE TWO TABLETS BY MOUTH EVERY DAY Rx Instructions: TAKE TWO TABLETS BY MOUTH EVERY DAY isosorbide mononitrate 60 mg tablet extended release 24 hr See Rx Instructions .ROUTE .COMPLEX Qty: 60 5RF Dose Instruction: TAKE ONE TABLET BY MOUTH TWICE DAILY FOR HIGH BLOOD PRESSURE Rx Instructions: TAKE ONE TABLET BY MOUTH TWICE DAILY FOR HIGH BLOOD PRESSURE ranolazine 1,000 mg tablet extended release 12 hr See Rx Instructions .ROUTE .COMPLEX Qty: 180 1RF Dose Instruction: TAKE 1 TABLET TWICE A DAY Rx Instructions: TAKE 1 TABLET TWICE A DAY pantoprazole 40 mg tablet,delayed release (DR/EC) See Rx Instructions .ROUTE .COMPLEX Qty: 90 1RF Dose Instruction: TAKE ONE TABLET BY MOUTH EVERY DAY Rx Instructions: TAKE ONE TABLET BY MOUTH EVERY DAY clopidogrel 75 mg tablet See Rx Instructions .ROUTE .COMPLEX Qty: 90 3RF Dose Instruction: TAKE ONE TABLET BY MOUTH EVERY DAY Rx Instructions: TAKE ONE TABLET BY MOUTH EVERY DAY metoprolol succinate 100 mg tablet extended release 24 hr 50 mg PO DAILY Rx Instructions: TAKE ONE TABLET BY MOUTH EVERY DAY Referrals Follow up/Referrals: Jennifer Newton APRN [Primary Care Provider] - See instructions Filomena Galvin DPM [Staff Physician] - See instructions Activity Restrictions/Add. Instructions Additional Instructions/Restrictions: Rest the extremity, apply ice for 15 minutes as tolerated three or four times per day, Wear the fabián wrap for compression, Elevate the extremity as tolerated while you are resting. Take tylenol for pain. Follow up with Dr. Galvin (podiatry). I put in a referral but you need to call her office and schedule an appointment. Follow up with your regular doctor. GO TO THE ER FOR ANY WORSENING SYMPTOMS Clinical Impressions Clinical Impression: Right foot sprain, Pain of right foot Instructions Patient Instructions: DI for Foot Pain, DI for Foot Sprain Discharge ED Provider: Owen Sanchez [facility] General Stated complaint: AO Pain in R Foot Time Seen by Provider: 09/26/23 09:14 History of Present Illness Provider Complaint: He states that when he was walking yesterday he felt a pop in his right foot. Since then he has had right foot pain and swelling. His pain is worse when he bears weight or walks on the foot. He denies any other injury or complaints. Related Data Home Medications Medication Instructions Recorded Confirmed albuterol sulfate 90 mcg/actuation 2 puff inhalation QIDP PRN SOA 25 10/27/18 07/06/23 aerosol inhaler days #9 grams budesonide-formoterol HFA 160 1 puff inhalation DAILY Breathing 10/27/18 07/06/23 mcg-4.5 mcg/actuation aerosol problems 30 days #10 grams inhaler tamsulosin 0.4 mg capsule 0.4 mg PO DAILY bladder 90 days 10/27/18 07/06/23 #90 caps dutasteride 0.5 mg capsule 0.5 mg PO DAILY unknown 10/10/19 07/06/23 gabapentin 300 mg capsule 300 mg PO TID Pain 90 days #270 10/10/19 07/06/23 caps lamotrigine 100 mg tablet 150 mg PO BID mood 90 days #270 10/10/19 07/06/23 tabs aripiprazole 30 mg tablet 20 mg PO DAILY Anxiety 04/09/20 07/06/23 ergocalciferol (vitamin D2) 1,250 1,250 mcg PO DAILY 10/26/22 07/06/23 mcg (50,000 unit) capsule folic acid 1 mg tablet 1 mg PO DIRECTED 10/26/22 07/06/23 methotrexate sodium 2.5 mg tablet 2.5 mg PO WEEKLY 10/26/22 07/06/23 metoprolol succinate 100 mg 50 mg PO DAILY htn 07/06/23 07/06/23 tablet,extended release 24 hr spironolactone 50 mg tablet 50 mg PO DAILY 07/06/23 07/06/23 Previous Rx's Medication Instructions Recorded aspirin 81 mg tablet,delayed 81 mg PO DAILY Heart disease #90 10/09/20 release (Adult Low Dose Aspirin) tabs atorvastatin 80 mg tablet 80 mg PO DAILY hld #90 tabs 06/08/22 nitroglycerin 0.4 mg sublingual See Rx Instructions .Route 06/08/22 tablet .COMPLEX #25 tabs famotidine 20 mg tablet (Pepcid) 20 mg PO BID #60 tabs 06/11/22 furosemide 40 mg tablet See Rx Instructions .Route 06/03/23 .COMPLEX #60 tabs isosorbide mononitrate 60 mg See Rx Instructions .Route 06/03/23 tablet,extended release 24 hr .COMPLEX #60 tabs ranolazine 1,000 mg See Rx Instructions .Route 06/23/23 tablet,extended release,12 hr .COMPLEX #180 tabs pantoprazole 40 mg tablet,delayed See Rx Instructions .Route 06/30/23 release .COMPLEX #90 tabs clopidogrel 75 mg tablet See Rx Instructions .Route 08/31/23 .COMPLEX #90 tabs Allergies Allergy/AdvReac Type Severity Reaction Status Date / Time ibuprofen [IBUPROFEN] Allergy Mild Unknown Verified 09/26/23 09:36 allergy reaction nickel [NICKEL] Allergy Unknown I-RASH Verified 09/26/23 09:36 quetiapine [From SEROQUEL] Allergy Unknown I-RASH Verified 09/26/23 09:36 [facility] Disclaimer: The information contained in this section may have been updated after the patient was seen, as this information can be updated by other users. Medical History (Updated 09/26/23 @ 09:54 by Owen Sanchez APRN) Abnormal cardiovascular stress test Abnormal EKG Abnormal result of cardiovascular function study Angina pectoris CAD (coronary artery disease) Chest pain Dizziness Dyspnea Edema GERD (gastroesophageal reflux disease) Hyperlipidemia Hypertension Tachycardia Tobacco dependence syndrome Typical angina Unstable angina Surgical History H/O heart artery stent History of cardiac cath History of coronary artery stent placement Social History Smoking Status: Former smoker tobacco type: pipe alcohol intake: never substance use type: marijuana counseling given: No (patient refused) counseling provided: none current occupational status: disabled Travel in the last 8 weeks: None household members: spouse housing: house marital status: retirement: No caffeine: Yes physical activity: none ROS Obtained: Yes All systems reviewed & no additional complaints except as documented Constitutional Constitutional: Denies chills and Denies fever(s) Eyes Eyes: Denies eye discharge ENT Ears, Nose, Mouth, and Throat: Denies dizziness, Denies otalgia and Denies sore throat Cardiovascular Cardiovascular: Denies chest pain Respiratory Respiratory: Denies shortness of breath, Denies chest congestion, Denies cough, Denies stridor and Denies wheezing Gastrointestinal Gastrointestingal: Denies nausea or vomiting Musculoskeletal Musculoskeletal: Reports as per HPI Integumentary/Breasts Skin/Breast: Denies redness, Denies rash and Denies wounds Neurologic Neurologic: Denies dizziness and Denies paresthesias Allergic/Immunologic Allergic/Immunologic: Denies wheezing Physical Exam General General appearance: alert and in no apparent distress Head Head exam: atraumatic, normocephalic and normal inspection Eye Eye exam: Present normal appearance, PERRL and EOMI ENT ENT exam: Present normal exam, normal oropharynx, mucous membranes moist, TM's normal bilaterally and normal external ear exam Neck Neck exam: Present normal inspection, full ROM and trachea midline; Absent meningismus or lymphadenopathy Chest Chest inspection: Present normal inspection and symmetric chest wall rise; Absent tenderness Respiratory Respiratory exam: Present normal lung sounds bilaterally; Absent respiratory distress Cardiovascular Cardiovascular exam: Present regular rate and normal rhythm; Absent JVD Abdominal Exam Abdominal exam: Present soft and normal bowel sounds; Absent distention, tenderness or guarding Extremities Exam Extremities exam: Present normal capillary refill; Absent calf tenderness Expanded Lower Extremity Exam Right: Knee exam: Present normal inspection, full ROM and knee extension intact; Absent tenderness Lower leg exam: Present normal inspection, full ROM and Achilles tendon intact; Absent tenderness or Homans' sign Ankle exam: Present normal inspection and full ROM; Absent tenderness, tenderness over talofibular lig or anterior draw sign Foot/toe exam: Present tenderness and swelling; Absent full ROM, abrasion, laceration, ecchymosis, deformity, crepitus, dislocation, amputation, puncture wound, foreign body, calcaneal tenderness, tenderness at base of 5th metatarsal, nail avulsion or subungual hematoma Neurovascular/Tendon exam: Present normal capillary refill; Absent pulse deficit, motor deficit, sensory deficit, tendon deficit or extremity cold to touch Gait: observed and limited by pain Back Exam Back exam: Present normal inspection; Absent tenderness Neurological Exam Neurological exam: Present alert and oriented X3 Psychiatric Psychiatric exam: Present normal affect and normal mood Skin Skin exam: Present warm, dry, intact and normal color Lymphatic Lymphatic Findings: no adenopathy Medical Decision Making Tk Inquiry Pt receiving controlled substance: No Orders (Tests/Meds): ORDERS Category Date Time Status Foot XR right minimum 3 views [XR foot RT min 3V] Stat Exams 09/26/23 09:11 Ordered Procedures Risk/Benefits of Procedure(s) Were Explained: Yes Orthopedic Splinting/Casting Injury #1: Side: right Lower Extremity Injury Location: foot Lower Extremity Immobilizer: Fabián wrap and applied by nurse/dr lovelace Post Cast/Splinting Neuro Status: intact and no change Post Cast/Splinting Vasc Status: intact and no change
[2023-09-26 09:15] VITALS: BP 139/73; PULSE 81; RESP 19; TEMP 36.9; O2SAT 98; BMI 41.5
[2023-09-26 10:07] VITALS: BP 139/73; PULSE 81; RESP 19; TEMP 36.9; O2SAT 98
== END 2023-09-26 10:07 | disposition home or self-care (01) ==
PROVIDERS: Emergency Provider Nurse Practitioner Family; PCP Nurse Practitioner Family
DX: M79.671 Pain in right foot (principal); S93.601A Unspecified sprain of right foot, initial encounter; I11.9 Hypertensive heart disease without heart failure; I25.119 Atherosclerotic heart disease of native coronary artery with unspecified angina pectoris; E78.5 Hyperlipidemia, unspecified; K21.9 Gastro-esophageal reflux disease without esophagitis; Z87.891 Personal history of nicotine dependence; Z95.5 Presence of coronary angioplasty implant and graft; X50.0XXA Overexertion from strenuous movement or load, initial encounter
CPT/HCPCS: 73630; 99204; 99212; G0463

== ENCOUNTER 2024-01-18 11:24 | Outpatient (CLI) | payer MEDICARE, SELFPAY ==
--- NOTE | 2024-01-18 11:27 | CA_ITS ---
APPROVED REPORT EXAM: Comprehensive 2D, Doppler, and color-flow Echocardiogram [employer] Boat Builder: Gely Merida RT(R) Ht: 5 ft 10 in Wt: 307lbs BSA: 2.50 BP: 124/73 mmHg Indications: dyspnea, CP, smoker, morbid obesity, PATEL, abn EKG, CAD, edema, HTN, HLD. 2D Dimensions LA Volume 54.20 mL LA Volume Index 21.59 mL/m2 (M/F) 16-34 EF AP4 46.00 % GL Strain -13.2 % M-Mode Dimensions RVDd 3.69 cm (0.9-2.6) LA Diam 4.22 cm (1.9-4.0) LVDd 4.88 cm (3.5-5.7) LVDs 3.52 cm (3.5-5.7) IVSd 1.10 cm (0.6-1.1) PWd 0.76 cm (0.6-1.1) EF (Teich) 53.80% FS 27.90% EDV (Teich) 111.70 mL ESV (Teich) 51.60 mL LV Diastology E Decel Time 177 (160-240 msec) E/A Ratio 0.9 Mitral Valve MV E Max Elpidio. 73.0 (40-130 cm/s) MV A Velocity 80.0 (40-130 cm/s) E/A Ratio 0.91 MV PHT 52.0 ms Left Ventricle The left ventricle is normal size. The left ventricular systolic function is low normal. Proximal septal thickening is noted. There is normal LV segmental wall motion. Transmitral Doppler flow pattern suggests impaired LV relaxation. LVEF is 50%. Right Ventricle Right ventricle is moderately dilated. Right ventricle is mildly hypokinetic. Atria Left atrium is mildly dilated. Right atrium is mildly dilated. There is no Doppler evidence of interatrial shunt. Aortic Valve The aortic valve is mildly thickened. Trace aortic regurgitation. There is no aortic valvular stenosis. Mitral Valve The mitral valve is normal in structure. No evidence of mitral valve stenosis. Mild mitral regurgitation. Tricuspid Valve The tricuspid valve leaflets are thin and pliable. Trace tricuspid regurgitation. There is insufficient TR jet to estimate RVSP. Pulmonic Valve The pulmonary valve is normal in structure. Trace pulmonic regurgitation. Great Vessels The aortic root is normal in size. The ascending aorta is normal in size. IVC is normal in size and collapses >50% with inspiration. Pericardium There is no pericardial effusion. Other Information Study Quality: Fair Conclusion Low normal LV systolic function. Moderate RV dilation with mild reduction in RV function. Biatrial dilation. Mild MR. Electronically signed by : Chanda Michelle MD 01/20/2024 11:30:38
--- NOTE | 2024-01-18 11:29 | NM_ITS ---
APPROVED REPORT Exam: Nuclear Stress Test Indication: Obesity, Chest pain, SOB, Palpitations, Abnormal EKG, HTN, High cholesterol, Tobacco use, CAD Patient Location: Outpatient Stress Tech: Grace Hurtado NM Tech:Ashley Olivo, ARRT, RT (R)(N) Ht: 5 ft 9 in Wt: 305 lbs HR: 75 bpm BP: 119/64 mmHg BSA: 2.47 m2 TID: 1.38 BMI: 45.0 History: Obesity, Chest pain, SOB, Palpitations, Abnormal EKG, HTN, High cholesterol, Tobacco use, CAD Procedure: Patient received 0.4 mg of intravenous Lexiscan, resting heart rate 75 bpm, resting blood pressure 119/64 mmHg, with Lexiscan maximum heart rate achieved was 86 bpm which is % of the maximum predicted heart rate and blood pressure was 122/63 mmHg. Cardiac Stress and Resting SPECT Images: Cardiac Stress and Resting SPECT images were obtained using technetium 99m Myoview 32.9 mCi stress and 10.27 mCi at rest. Resting and stress imaging in supine and prone positions demonstrate no evidence of fixed or reversible perfusion defects. There is increased transient ischemic dilatation ratio (TID 1.38), suggestive of possible multivessel disease or balanced ischemia. Gated imaging demonstrates mild reduction in global LV systolic function. LVEF is calculated at 49%. Conclusion: No evidence of fixed or reversible perfusion defects. Increased transient ischemic dilatation ratio (TID 1.38), suggestive of possible multivessel disease or balanced ischemia. Gated imaging demonstrates mild reduction in global LV systolic function. LVEF is calculated at 49%. Electronically signed by : Chanda Michelle MD 01/19/2024 13:38:27
[2024-01-18] MEDS: ISOTOPE MYOVIEW (PER STUDY) 1 DOSE IV (12:50)
[2024-01-18] MEDS: SODIUM CHLORIDE 0.9% 10ML SYR (RAD ONLY) 10 ML IV ×2 (12:50)
[2024-01-18] MEDS: REGADENOSON 0.4MG/5ML SYRINGE 0.4 MG IV (12:50)
--- NOTE | 2024-01-18 13:27 | CA_ITS ---
APPROVED REPORT Exam: Pharmacologic Technologist: Grace Deluca, Ht: 5 ft 10 in Wt: 307 lbs BSA: 2.50 m2 HR: 77 bpm BP: 119/64 mmHg Rhythm: NSR Medical History Medications: Aspirin,,,,, Gabapentin,,,,, Pantoprazole,,,,, Atorvastatin,,,,, FOLIC ACID,,,,, SyMBICORT,,,,, TAMSULOSIN,,,,, Albuterol,,,,, Norvasc,,,,, Plavix,,,,, Vitamin D2,,,,, Nitroglycerin,,,,, Stress Test Details Test: LEXISCAN Reason for pharmacologic stress test: physical limitation. HR Resting HR: 75 bpm Max Heart Rate (APMHR): 155 bpm Max HR Achieved: 86 bpm Target HR (85% APMHR): 132 bpm % of APMHR: 55 Recovery HR: 77 bpm BP Resting BP: 119.0/64.0 mmHg Max BP: 122.0/63.0 mmHg Recovery BP: 113.0/60.0 mmHg ECG Resting ECG: NSR Stress ECG: No significant ST changes Arrhythmia: None Clinical Exercise duration: 04:01 min Highest Stage Achieved: Stress ECG Conclusion Symptoms: chest pain, SOB Arrhythmias/Ectopy: None ST-T Changes: No significant ST changes Conclusion: EKG portion unremarkable due to Lexiscan infusion. Myoview images reported separately. Test Summary REST . . . . . . . Resting REST 02:10 . . 75 . 119/ 64 . . Stage 1 . . . . . . . Myoview Injected Stage 1 01:00 . . 76 . . . . Stage 2 01:00 . . 85 . . . . Stage 3 01:00 . . 78 . 122/ 63 . . Stage 4 01:00 . . 77 . 109/ 59 . . Stage 4 01:01 . . 78 . 109/ 59 . Stop exercise at 04:01 RECOVERY 01:00 . . 80 . . . . RECOVERY 02:00 . . 79 . 104/ 62 . . RECOVERY 03:00 . . 76 . 104/ 62 . . RECOVERY 03:13 . . 79 . 113/ 60 . . Electronically signed by : Chanda Michelle MD 01/19/2024 13:36:21
== END 2024-01-18 23:59 | disposition home or self-care (01) ==
LOC: RAD 11:27
PROVIDERS: PCP Nurse Practitioner Family; Visit Provider Nurse Practitioner Family
DX: I11.9 Hypertensive heart disease without heart failure (principal); I25.118 Atherosclerotic heart disease of native coronary artery with other forms of angina pectoris; R06.09 Other forms of dyspnea; R94.31 Abnormal electrocardiogram [ECG] [EKG]; Z95.5 Presence of coronary angioplasty implant and graft; E78.2 Mixed hyperlipidemia; F17.290 Nicotine dependence, other tobacco product, uncomplicated; E66.01 Morbid (severe) obesity due to excess calories; Z68.41 Body mass index [BMI] 40.0-44.9, adult
CPT/HCPCS: 78452; 93017; 93018; 93306; A9502; J2785

== ENCOUNTER 2024-01-28 08:36 | Emergency (ER) | payer MEDICARE, SELFPAY ==
[2024-01-28] VITALS (9 sets, daily range): BP systolic 116–151; BP diastolic 64–83; PULSE 54–106; RESP 13–17; TEMP 36.4–36.7; O2SAT 94–96; BMI 43.0
--- NOTE | 2024-01-28 08:36 | ECG_ITS ---
APPROVED REPORT Exam: Resting ECG HR:99 bpm ECG Measurements Heart Rate 99 AXES MS 189 P 67 QRSd 104 QRS -65 QT 343 T 70 QTc 399 Conclusion SINUS RHYTHM LEFT AXIS DEVIATION [QRS AXIS < -30] PATTERN CONSISTENT WITH PULMONARY DISEASE MODERATE VOLTAGE CRITERIA FOR LVH, CONSIDER NORMAL VARIANT [MEETS CRITERIA IN ONE OF: R(aVL), S(V1), R(V5), R(V5/V6)+S(V1)] NONSPECIFIC T-WAVE ABNORMALITY Electronically signed by : LUCIA TERRY, 01/28/2024 15:58:04
--- NOTE | 2024-01-28 08:41 | PC.NURSE ---
dr stone at bedside
--- NOTE | 2024-01-28 08:43 | CT_ITS ---
FINAL REPORT TECHNIQUE: Thin section axial CT with contrast with multiplanar reconstruction. This study was performed with techniques to keep radiation doses as low as reasonably achievable (ALARA). Individualized dose reduction techniques using automated exposure control or adjustment of mA and/or kV according to the patient's size were employed. CLINICAL HISTORY: pleuritic L sided CP COMPARISON: 03/03/2022 FINDINGS: Pulmonary vessels enhance in normal fashion without evidence of embolism. Thoracic aorta shows no dissection or aneurysm. No pulmonary mass or infiltrate is present. There is no significant pleural effusion. There is no significant pericardial effusion. No mediastinal or hilar adenopathy is present. IMPRESSION: 1. No evidence of pulmonary embolism Reviewed, Interpreted and Dictated by Gladis Carbajal MD Transcribed by Delmy Clark Authenticated and [facility]
--- NOTE | 2024-01-28 08:47 | HMH.EDGENADL ---
Discharge Plan Disposition Patient Disposition: Home, Self-Care Condition: Good Prescriptions Prescriptions: No Action dutasteride 0.5 mg capsule 0.5 mg PO DAILY aripiprazole 30 mg tablet 20 mg PO DAILY famotidine [Pepcid] 20 mg tablet 20 mg PO BID Qty: 60 2RF amlodipine [Norvasc] 2.5 mg tablet 2.5 mg PO DAILY Qty: 30 3RF tamsulosin 0.4 mg capsule 0.4 mg PO DAILY 90 Days Qty: 90 albuterol sulfate 90 mcg/actuation HFA aerosol inhaler 2 puff INHALATION QIDP PRN (Reason: SOA) 25 Days Qty: 9 Patient Comments: INHALE 2 PUFFS BY MOUTH FOUR TIMES DAILY * SHAKE WELL BEFORE USE * budesonide-formoterol 160-4.5 mcg/actuation HFA aerosol inhaler 1 puff INHALATION DAILY 30 Days Qty: 10 gabapentin 300 mg capsule 300 mg PO TID 90 Days Qty: 270 lamotrigine 100 mg tablet 150 mg PO BID 90 Days Qty: 270 methotrexate sodium 2.5 mg tablet 2.5 mg PO WEEKLY Patient Comments: TAKE EIGHT TABLETS BY MOUTH EVERY WEEK folic acid 1 mg tablet 1 mg PO DIRECTED Patient Comments: TAKE ONE TABLET BY MOUTH EVERY DAY EXCEPT FOR THE DAY you take methotrexate ergocalciferol (vitamin D2) 1,250 mcg (50,000 unit) capsule 1,250 mcg PO DAILY spironolactone 50 mg tablet 50 mg PO DAILY aspirin [Adult Low Dose Aspirin] 81 mg tablet,delayed release (DR/EC) 81 mg PO DAILY Qty: 90 2RF atorvastatin 80 mg tablet 80 mg PO DAILY Qty: 90 3RF Rx Instructions: TAKE 1 TABLET AT BEDTIME FOR CHOLESTEROL nitroglycerin 0.4 mg tablet, sublingual See Rx Instructions .ROUTE .COMPLEX Qty: 25 0RF Dose Instruction: DISSOLVE 1 TABLET UNDER THE TONGUE EVERY 5 MINUTES NEEDED FOR CHEST PAIN. DO NOT EXCEED A TOTAL OF 3 DOSES IN 15 MINUTES. IF NO RELIEF AFTER 3 DOSES CALL 911/GO TO ER Rx Instructions: DISSOLVE 1 TABLET UNDER THE TONGUE EVERY 5 MINUTES NEEDED FOR CHEST PAIN. DO NOT EXCEED A TOTAL OF 3 DOSES IN 15 MINUTES. IF NO RELIEF AFTER 3 DOSES CALL 911/GO TO ER clopidogrel 75 mg tablet See Rx Instructions .ROUTE .COMPLEX Qty: 90 3RF Dose Instruction: TAKE ONE TABLET BY MOUTH EVERY DAY Rx Instructions: TAKE ONE TABLET BY MOUTH EVERY DAY isosorbide mononitrate 60 mg tablet extended release 24 hr See Rx Instructions .ROUTE .COMPLEX Qty: 90 3RF Dose Instruction: TAKE ONE TABLET BY MOUTH TWICE DAILY FOR HIGH BLOOD PRESSURE Rx Instructions: TAKE ONE TABLET BY MOUTH TWICE DAILY FOR HIGH BLOOD PRESSURE furosemide 40 mg tablet See Rx Instructions .ROUTE .COMPLEX Qty: 180 3RF Dose Instruction: TAKE TWO TABLETS BY MOUTH EVERY DAY Rx Instructions: TAKE TWO TABLETS BY MOUTH EVERY DAY ranolazine 1,000 mg tablet extended release 12 hr See Rx Instructions .ROUTE .COMPLEX Qty: 180 2RF Dose Instruction: TAKE 1 TABLET TWICE A DAY Rx Instructions: TAKE 1 TABLET TWICE A DAY pantoprazole 40 mg tablet,delayed release (DR/EC) See Rx Instructions .ROUTE .COMPLEX Qty: 90 3RF Dose Instruction: TAKE ONE TABLET BY MOUTH EVERY DAY Rx Instructions: TAKE ONE TABLET BY MOUTH EVERY DAY metoprolol succinate 100 mg tablet extended release 24 hr 50 mg PO DAILY Rx Instructions: TAKE ONE TABLET BY MOUTH EVERY DAY Referrals Follow up/Referrals: Jennifer Newton APRN [Primary Care Provider] - See instructions Activity Restrictions/Add. Instructions Additional Instructions/Restrictions: You were evaluated in the emergency department today and diagnosed with COVID-19. Please make sure that you stay hydrated. Take Tylenol and ibuprofen at home as needed for pain and fever. 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 Return to the emergency department for new or worsening symptoms. Clinical Impressions Clinical Impression: Chest pain, COVID-19 Instructions Patient Instructions: DI for Atypical Chest Pain, DI for COVID-19 (Suspected or Confirmed ) Discharge ED Provider: Minnie Mendieta General Adult HPI General Chief complaint: Chest Pain Stated complaint: CP Time Seen by Provider: 01/28/24 08:43 History of Present Illness HPI narrative: This patient is a 63-year-old male with a history of CAD status post stenting, obesity, hypertension, hyperlipidemia, and recurrent chest pain presenting to the emergency department for evaluation with concern for chest pain. Patient reports that he has had left upper chest pain since yesterday that got worse today. He took nitroglycerin at home with no improvement. He also notes that he had a cough and some upper back pain between his shoulder blades. Nothing seems to make the pain better. It is worse when he takes a deep breath. He reports compliance with his home medications. I reviewed prior cardiology note and noted that he was seen there in December and is on medical management for severe stenosis to the distal LAD. He is on dual antiplatelet therapy with aspirin and Plavix. He is on [facility] for angina Related Data Home Medications Medication Instructions Recorded Confirmed albuterol sulfate 90 mcg/actuation 2 puff inhalation QIDP PRN SOA 25 10/27/18 01/05/24 aerosol inhaler days #9 grams budesonide-formoterol HFA 160 1 puff inhalation DAILY Breathing 10/27/18 01/05/24 mcg-4.5 mcg/actuation aerosol problems 30 days #10 grams inhaler tamsulosin 0.4 mg capsule 0.4 mg PO DAILY bladder 90 days 10/27/18 01/05/24 #90 caps dutasteride 0.5 mg capsule 0.5 mg PO DAILY unknown 10/10/19 01/05/24 gabapentin 300 mg capsule 300 mg PO TID Pain 90 days #270 10/10/19 01/05/24 caps lamotrigine 100 mg tablet 150 mg PO BID mood 90 days #270 10/10/19 01/05/24 tabs aripiprazole 30 mg tablet 20 mg PO DAILY Anxiety 04/09/20 01/05/24 ergocalciferol (vitamin D2) 1,250 1,250 mcg PO DAILY 10/26/22 01/05/24 mcg (50,000 unit) capsule folic acid 1 mg tablet 1 mg PO DIRECTED 10/26/22 01/05/24 methotrexate sodium 2.5 mg tablet 2.5 mg PO WEEKLY 10/26/22 01/05/24 metoprolol succinate 100 mg 50 mg PO DAILY htn 07/06/23 01/05/24 tablet,extended release 24 hr spironolactone 50 mg tablet 50 mg PO DAILY 07/06/23 01/05/24 Previous Rx's Medication Instructions Recorded aspirin 81 mg tablet,delayed 81 mg PO DAILY Heart disease #90 10/09/20 release (Adult Low Dose Aspirin) tabs atorvastatin 80 mg tablet 80 mg PO DAILY hld #90 tabs 06/08/22 nitroglycerin 0.4 mg sublingual See Rx Instructions .Route 06/08/22 tablet .COMPLEX #25 tabs famotidine 20 mg tablet (Pepcid) 20 mg PO BID #60 tabs 06/11/22 clopidogrel 75 mg tablet See Rx Instructions .Route 08/31/23 .COMPLEX #90 tabs furosemide 40 mg tablet See Rx Instructions .Route 12/13/23 .COMPLEX #180 tabs isosorbide mononitrate 60 mg See Rx Instructions .Route 12/13/23 tablet,extended release 24 hr .COMPLEX #90 tabs ranolazine 1,000 mg See Rx Instructions .Route 01/03/24 tablet,extended release,12 hr .COMPLEX #180 tabs amlodipine 2.5 mg tablet (Norvasc) 2.5 mg PO DAILY #30 tabs 01/05/24 pantoprazole 40 mg tablet,delayed See Rx Instructions .Route 01/06/24 release .COMPLEX #90 tabs Allergies Allergy/AdvReac Type Severity Reaction Status Date / Time ibuprofen [IBUPROFEN] Allergy Mild Unknown Verified 01/05/24 15:02 allergy reaction nickel [NICKEL] Allergy Unknown I-RASH Verified 01/05/24 15:02 quetiapine [From SEROQUEL] Allergy Unknown I-RASH Verified 01/05/24 15:02 [facility] Disclaimer: The information contained in this section may have been updated after the patient was seen, as this information can be updated by other users. Medical History Angina pectoris Hypertension Hyperlipidemia Abnormal result of cardiovascular function study Tachycardia Unstable angina Dizziness GERD (gastroesophageal reflux disease) Abnormal cardiovascular stress test Typical angina Tobacco dependence syndrome Abnormal EKG CAD (coronary artery disease) Edema Dyspnea Chest pain Surgical History History of cardiac cath H/O heart artery stent History of coronary artery stent placement Social History Smoking Status: Current every day smoker tobacco type: pipe alcohol intake: never substance use type: marijuana counseling given: No (patient refused) counseling provided: none current occupational status: disabled Travel in the last 8 weeks: None household members: spouse housing: house marital status: longterm: No caffeine: Yes physical activity: none ROS Obtained: Yes All systems reviewed & no additional complaints except as documented Physical Exam General General appearance: alert, in no apparent distress and obese Head Head exam: atraumatic and normocephalic Eye Eye exam: Present normal appearance, PERRL and EOMI ENT ENT exam: Present normal exam, normal oropharynx, mucous membranes moist and normal external ear exam Neck Neck exam: Present normal inspection, full ROM and trachea midline; Absent tenderness Chest Chest inspection: Present normal inspection and symmetric chest wall rise; Absent tenderness Respiratory Respiratory exam: Present normal lung sounds bilaterally; Absent respiratory distress, wheezes, stridor or accessory muscle use Cardiovascular Cardiovascular exam: Present regular rate and normal rhythm Abdominal Exam Abdominal exam: Present soft; Absent distention, tenderness or guarding Extremities Exam Extremities exam: Present normal inspection, full ROM and normal capillary refill; Absent tenderness or edema Back Exam Back exam: Present normal inspection and full ROM; Absent tenderness Neurological Exam Neurological exam: Present alert, oriented X3, CN II-XII intact and normal gait; Absent motor sensory deficit Psychiatric Psychiatric exam: Present normal affect and normal mood Skin Skin exam: Present warm and dry Medical Decision Making Medical Records Medical records reviewed: Yes I reviewed the patient's medical records. Tk Inquiry Pt receiving controlled substance: No Vital Signs: 01/28/24 08:38 01/28/24 08:55 01/28/24 09:02 Temperature 97.6 F Temperature Source Oral Pulse Rate 87 106 H Pulse Rate [Left Radial] 87 Respiratory Rate 13 17 Blood Pressure Blood Pressure [Right Arm] 128/75 Blood Pressure Mean [Right Arm] 92 02 Sat by Pulse Oximetry 96 96 Oxygen Delivery Method Room Air Room Air 01/28/24 09:30 01/28/24 10:00 01/28/24 10:30 Temperature Temperature Source Pulse Rate 60 78 61 Pulse Rate [Left Radial] Respiratory Rate 14 17 13 Blood Pressure 116/64 135/79 151/79 H Blood Pressure [Right Arm] Blood Pressure Mean [Right Arm] 02 Sat by Pulse Oximetry 95 96 96 Oxygen Delivery Method Room Air Room Air Room Air 01/28/24 11:00 01/28/24 11:30 01/28/24 12:48 Temperature 98.0 F Temperature Source Pulse Rate 74 54 L 94 H Pulse Rate [Left Radial] Respiratory Rate 14 15 13 Blood Pressure 149/83 H 145/75 H 131/72 Blood Pressure [Right Arm] Blood Pressure Mean [Right Arm] 02 Sat by Pulse Oximetry 95 95 Oxygen Delivery Method Room Air Room Air Room Air Lab Data Lab results reviewed: Yes I reviewed the patient's lab results. Lab Results 01/28/24 08:45: WBC 8.8, RBC 4.59 L, Hgb 15.3, Hct 46.9, MCV 102.2 H, MCH 33.3 H, MCHC 32.6, RDW 13.5, Plt Count 301, MPV 6.6 L, Neut % (Auto) 70.1, Lymph % (Auto) 20.6, [place] % (Auto) 6.6, Eos % (Auto) 2.1, Baso % (Auto) 0.6, Neut # (Auto) 6.2, Lymph # (Auto) 1.8, [place] # (Auto) 0.6, Eos # (Auto) 0.2, Baso # (Auto) 0.1, PT 10.3, INR 0.91, APTT 26.5, Sodium 141, Potassium 3.3 L, Chloride 106, Carbon Dioxide 27, Anion Gap 11.3, BUN 12, Creatinine 0.90, Estimated Creat Clear 76, Estimated GFR 85, Est GFR ( Amer) 102, Glucose 106 H, Calcium 9.4, Total Bilirubin 0.7, AST 35, ALT 30, Alkaline Phosphatase 99, Troponin I < 0.01, NT-Pro-B Natriuret Pep 368 H, Total Protein 7.4, Albumin 4.4, Globulin 3.0, Albumin/Globulin Ratio 1.5, Lipase 294 01/28/24 08:59: SARS-CoV-2 (PCR) Detected A, Influenza A Untype (PCR) Not detected, Influenza Type B (PCR) Not detected 01/28/24 11:45: Troponin I < 0.01 01/28/24 08:45 01/28/24 08:45 Orders (Tests/Meds): ED MEDICATIONS Discontinued Medications Generic Name Dose Route Start Last Admin Trade Name Freq PRN Reason Stop Dose Admin Acetaminophen 1,000 mg 01/28/24 10:31 01/28/24 10:39 Acetaminophen 1,000mg/100ml Vial IV 01/28/24 10:32 1,000 mg ONCE ONE Administration Aspirin 324 mg 01/28/24 08:57 01/28/24 09:03 Aspirin 81mg Chewable Tablet PO 01/28/24 08:58 324 mg ONCE ONE Administration Iopamidol 100 ml 01/28/24 09:41 01/28/24 09:42 Iopamidol-370 (76%);100ml Bottle IV 01/28/24 09:42 100 ml ONCE ONE Administration Ketorolac Tromethamine 15 mg 01/28/24 10:31 01/28/24 10:39 Ketorolac 30mg/Ml Vial IV 01/28/24 10:32 15 mg ONCE ONE Administration Sodium Chloride 50 ml 01/28/24 09:41 01/28/24 09:42 0.9 % Sodium Chloride 50 Ml Vial IV 01/28/24 09:42 50 ml ONCE ONE Administration Sodium Chloride 10 ml 01/28/24 09:41 01/28/24 09:42 Sodium Chloride 0.9% 10ml Syr (Rad Only) IV 02/27/24 09:40 10 ml NEEDED PRN Administration Maintain IV Site ORDERS Category Date Time Status CT angio chest PE protocol Stat Cat Scan 01/28/24 08:43 Completed Activated Partial Thrombo Time Stat Lab 01/28/24 08:45 Completed BNP [NT Pro Brain Natriuretic Pep.] Stat Lab 01/28/24 08:45 Completed Complete Blood Count Auto Diff Stat Lab 01/28/24 08:45 Completed Comprehensive Metabolic Panel Stat Lab 01/28/24 08:45 Completed Lipase Stat Lab 01/28/24 08:45 Completed Prothrombin Time INR Stat Lab 01/28/24 08:45 Completed Rapid PCR Covid and Flu A/B Stat Lab 01/28/24 08:59 Completed Trop I [Troponin I] Stat Lab 01/28/24 08:45 Completed Troponin I Q3H Lab 01/28/24 11:45 Completed ECG Data Tracing #1: I reviewed this ECG and interpreted as documented below: Normal sinus rhythm with a ventricular rate of 99 bpm. Left axis deviation. No changes from prior EKG. No acute ST changes concerning for ischemia ECG initial impression date: 01/28/24 ECG initial impression time: 08:40 HEART Score History (anamnesis): Slightly suspicious ECG: Normal Age: 45-65 years Risk factors: Atherosclerosis history Troponin: </= normal limit HEART Score: 3 Medical Decision Narrative: In summary, this patient is a 63-year-old male presenting to the Emergency Department for evaluation of chest pain. Differential diagnoses considered include but are not limited to ACS, dysrhythmia, GERD, costochondritis, respiratory failure, PE, aortic pathology, pneumonia. Ruling out the most morbid conditions drove assessment. It should be noted patient's history includes CAD, hypertension, hyperlipidemia, and obesity which may or may not be at goal therapy. This complicates all aspects of care by increasing patient's risk for morbidity. I reviewed patient's past medical records and noted previous cardiology evaluation as per HPI. On exam, patient is resting comfortably in bed in no acute distress with normal vital signs on cardiac telemetry. Cardiopulmonary exam is reassuring. Workup included CBC, CMP, troponin, BNP, PT, PTT, viral swab, CTA of the chest and EKG. EKG obtained is reassuring. Patient was given oral aspirin. I independently interpreted CT scan prior to the radiologist read and noted no obvious large PE and no obvious large focal consolidation concerning for pneumonia. Please see their read for final interpretation. Labs were obtained that demonstrated negative initial troponin. Patient is positive for COVID-19. He has mild hypokalemia, for which oral replacement was ordered. No other obvious significantly concerning abnormalities. Given the symptoms in the setting of COVID-19, he was given IV Toradol and oral Tylenol to assess for symptomatic improvement. At 1030, patient was placed in ED observation status pending second troponin and reassessment to determine whether or not the patient would be appropriate for discharge versus admission. The patient was provided serial reevaluations and cardiac monitoring while awaiting ultimate disposition. Second troponin resulted and is negative. On reassessment, the patient is resting comfortably with normal vital signs on cardiac telemetry. He states he is feeling better. At this time, feel her symptoms are likely related to COVID-19. He was given instructions for supportive management. Given reassuring workup and exam, it is felt that the patient is appropriate for discharge at 12:30 PM. Total ED observation time was 2 hours. I had a [id number] visit with the patient when providing discharge instructions. The total time involved in discharging this patient was less than 30 minutes. Critical Care Critical Care Time Critical Care Time: No
[2024-01-28 08:57] LABS: Basophils # 0.1 K/mm3 (0-0.2); Basophils % 0.6 % (0.1-2.0); Eosinophils # 0.2 K/mm3 (0.0-0.4); Eosinophils % 2.1 % (0.1-12.0); Hematocrit 46.9 % (42.0-52.0); Hemoglobin 15.3 g/dL (14.1-18.0); Lymphocytes # 1.8 K/mm3 (0.7-4.5); Lymphocytes % 20.6 % (10-50); Mean Corpuscular HGB Conc 32.6 g/dL (31.8-35.4); Mean Corpuscular Hemoglobin 33.3 pg (27.0-31.2); Mean Corpuscular Volume 102.2 fl (80-94); Mean Platelet Volume 6.6 fl (7.4-10.4); Monocytes # 0.6 K/mm3 (0.1-1.0); Monocytes % 6.6 % (1.7-9.3); Neutrophils # 6.2 K/mm3 (1.8-7.8); Neutrophils % 70.1 % (37.0-80.0); Platelet Count 301 K/mm3 (142-424); Red Blood Count 4.59 M/mm3 (4.60-6.20); Red Cell Distribution Width 13.5 % (11.5-17.5); White Blood Count 8.8 K/mm3 (4.8-10.8)
--- NOTE | 2024-01-28 08:59 | PC.NURSE ---
pt ambulated to restroom to provide urine sample.
[2024-01-28 09:02] LABS: Influenza A, PCR Not Detected (NotDetected); Influenza B, PCR Not Detected (NotDetected)
[2024-01-28] MEDS: ASPIRIN 81MG CHEWABLE TABLET 324 MG PO (09:03)
[2024-01-28 09:06] LABS: Activated Partial Thrombo Time 26.5 seconds (22.8-30.6); INR 0.91 (0.9-1.1); Prothrombin Time 10.3 seconds (10.1-12.5)
[2024-01-28 09:10] LABS: Chloride 106 mmol/L (98-107); Potassium 3.3 mmoL/L (3.5-5.1); Sodium 141 mmol/L (136-145)
[2024-01-28 09:13] LABS: Alanine Aminotransferase 30 U/L (12-78); Alkaline Phosphatase 99 U/L (38-126); Anion Gap 11.3 mEq/L (5-15); Aspartate Amino Transferase 35 U/L (17-59); Bilirubin,Total 0.7 mg/dl (0.2-1.3); Blood Urea Nitrogen 12 mg/dl (9-20); Calcium 9.4 mg/dl (8.4-10.2); Carbon Dioxide 27 mmol/L (22.0-30.0); Creatinine Clearance Estimated 76 mL/min (50-200); Estimated Glomerular Filt Rate 85 ml/min (>60); GFR (African American) 102 ML/MIN (>60); Glucose 106 mg/dl (74-100); Lipase 294 U/L (23-300)
[2024-01-28 09:14] LABS: Albumin Level 4.4 g/dl (3.5-5.0); Albumin/Globulin Ratio 1.5 (1.1-1.8); Total Protein,Serum 7.4 g/dl (6.3-8.2)
[2024-01-28 09:23] LABS: NT Pro Brain Natriuretic Pep. 368 pg/mL (0-125)
[2024-01-28 09:27] LABS: Troponin I < 0.01 ng/ml (0.00-0.034)
--- NOTE | 2024-01-28 09:37 | PC.NURSE ---
pt to ct
[2024-01-28] MEDS: 0.9 % SODIUM CHLORIDE 50 ML VIAL IV (09:42)
[2024-01-28] MEDS: IOPAMIDOL-370 (76%);100ML BOTTLE 100 ML IV (09:42)
[2024-01-28] MEDS: SODIUM CHLORIDE 0.9% 10ML SYR (RAD ONLY) 10 ML IV (09:42)
[2024-01-28 09:49] LABS: Coronavirus 19, PCR Detected (NotDetected)
--- NOTE | 2024-01-28 10:36 | PC.NURSE ---
Dr. Mendieta at bedside speaking with pt
[2024-01-28] MEDS: KETOROLAC 30MG/ML VIAL 15 MG IV (10:39)
[2024-01-28] MEDS: ACETAMINOPHEN 1,000MG/100ML VIAL 1000 MG IV (10:39)
[2024-01-28 12:33] LABS: Troponin I < 0.01 ng/ml (0.00-0.034)
== END 2024-01-28 12:50 | disposition home or self-care (01) ==
PROVIDERS: Emergency Provider Emergency Medicine; PCP Nurse Practitioner Family
DX: U07.1 COVID-19 (principal); R07.1 Chest pain on breathing; E87.6 Hypokalemia; F17.290 Nicotine dependence, other tobacco product, uncomplicated; K21.9 Gastro-esophageal reflux disease without esophagitis; E78.5 Hyperlipidemia, unspecified; I11.9 Hypertensive heart disease without heart failure; I25.119 Atherosclerotic heart disease of native coronary artery with unspecified angina pectoris; Z95.5 Presence of coronary angioplasty implant and graft; Z79.01 Long term (current) use of anticoagulants
CPT/HCPCS: 71275; 80053; 83690; 83880; 84484; 85025; 85610; 85730; 87636; 93005; 96374; 96375; 99285; J0131; J1885; Q9967

== ENCOUNTER 2024-02-21 08:43 | Outpatient (CLI) | payer MEDICARE, SELFPAY ==
--- NOTE | 2024-02-21 08:52 | CT_ITS ---
FINAL REPORT TECHNIQUE: Axial CT images of the chest were obtained without contrast. Low-dose protocol was utilized. This study was performed with techniques to keep radiation doses as low as reasonably achievable (ALARA). Individualized dose reduction techniques using automated exposure control or adjustment of mA and/or kV according to the patient's size were employed. CLINICAL HISTORY: HX NIOCTINE smoker 66 years, 2ppd hx copd,emphysema,CAD,CHF COMPARISON: 09/09/2021 FINDINGS: CT CHEST WITHOUT, LOW DOSE SCREENING CT Di Vol: 2.90 mGy DLP: 107.33 mGy*cm There is no axillary, mediastinal, or hilar adenopathy. The heart size is normal. There is no pleural or pericardial effusion. The lung windows show a calcified granuloma in the right upper lobe. The previously questioned 2 mm right upper lobe nodule is no longer evident. Limited images of the upper abdomen demonstrate no acute findings. IMPRESSION: LR Category 1: 12 month follow-up low-dose chest CT is recommended. Reviewed, Interpreted and Dictated by Gladis Carbajal MD Transcribed by Imani Voss Authenticated and [facility]
== END 2024-02-21 23:59 | disposition home or self-care (01) ==
LOC: RAD 08:43
PROVIDERS: PCP Nurse Practitioner Family; Visit Provider Nurse Practitioner Family
DX: Z87.891 Personal history of nicotine dependence (principal)
CPT/HCPCS: 71271

== ENCOUNTER 2024-02-24 10:52 | Day surgery (SDC) | payer MEDICARE, SELFPAY ==
[2024-02-24] VITALS (9 sets, daily range): BP systolic 98–149; BP diastolic 61–82; PULSE 51–70; RESP 16–22; TEMP 36.7; O2SAT 94–96; BMI 29.9
--- NOTE | 2024-02-24 07:07 | IR_ITS ---
APPROVED REPORT Patient Location: Outpatient PROCEDURES Left heart catheterization Left ventriculogram Selective coronary angiogram Drug-eluting stent deployment to the proximal to mid LAD Intravascular ultrasound of the LAD INDICATION Coronary artery disease, Accelerated angina pectoris, Angiographic ambiguity in the LAD Informed consent was obtained prior to the procedure. COMPLICATIONS NONE Estimated Blood Loss: LESS THAN 10 ML TECHNIQUE One percent lidocaine used to anesthetize the right anterior aspect of the wrist. The right radial artery was accessed via the Seldinger technique. A 6 Wolof sheath was placed in the right radial artery. 2.5 mg of Verapamil, 800 mcg of nitroglycerin, 1mg Lidocaine and 5000 U Heparin were given through the arterial sheath. The papa catheter was also used to perform left heart catheterization, left ventriculogram and selective coronary angiogram. At the end the diagnostic angiogram therapeutic heparin was administered giving a therapeutic ACT and the guide catheter was placed in the LAD followed by Choice PT extra-support wire placed distally. A 3.5 x 38 mm [place] frontier stent was deployed at 14 starr reducing the stenosis. A 3.5 x 12 mm noncompliant balloon was deployed at 24 starr to post dilate in the midportion and proximal portion of the stent. Following this there was angiographic ambiguity involving the ostium of the LAD therefore intravascular ultrasound probe was advanced which demonstrated a widely patent ostial LAD. At this point the apparatus was removed the sheath was removed and hemostasis was achieved using TR banding patient was transferred to the postop putting in stable condition ANGIOGRAPHIC RESULTS The left anterior descending artery Originates from the left coronary cusp and has a stent in the proximal segment which is widely patent with 20% eccentric in-stent stenosis midportion then has a focal 80 to 90% stenosis. Mid LAD has a stent which has mild concentric 30% in-stent restenosis. The distal LAD has a concentric 90% stenosis as the LAD wraps the apex. The circumflex artery Originates from the left coronary cusp and is proximally normal. A large multi branching obtuse marginal artery has a stent in the midsegment which is widely patent with minimal in-stent restenosis The right coronary artery Is codominant and has wide patency in the proximal segment with stents in the proximal to mid segment which are widely patent with minimal in-stent restenosis the entire mid RCA appears 20% undersized compared to the distal RCA The POLK ventriculogram reveals Preserved 60% The left ventricular end-diastolic pressure 15 to 20 mmHg IMPRESSION Severe LAD disease as described above Successful stenting of the proximal to mid LAD severe disease reduced to 0% with 1 drug-eluting stent Persistent severe stenosis in the distal LAD as it wraps the apex which is best managed medically despite being a 2 mm vessel Preserved ejection fraction Mildly elevated LVEDP PLAN 1. Dual antiplatelet therapy 2. Cardiac rehabilitation 3. This patient experiences absolutely recalcitrant angina pectoris I would strongly favor leaving the distal LAD stenosis alone. While this could accommodate a 2 mm stent the distal runoff supplies a relatively small area and I do not believe the risk is worth the benefit unless patient's symptoms are severe and recalcitrant 4. LDL less than 55 to be achieved high intensity statin 5. Avoidance of tobacco products 6. Risk factor modification Electronically signed by : Dillon Sky MD 02/24/2024 12:56:56
[2024-02-24 11:30] LABS: Basophils # 0.1 K/mm3 (0-0.2); Basophils % 0.7 % (0.1-2.0); Eosinophils # 0.1 K/mm3 (0.0-0.4); Eosinophils % 0.9 % (0.1-12.0); Hematocrit 44.6 % (42.0-52.0); Hemoglobin 14.6 g/dL (14.1-18.0); Lymphocytes # 1.3 K/mm3 (0.7-4.5); Lymphocytes % 17.9 % (10-50); Mean Corpuscular HGB Conc 32.7 g/dL (31.8-35.4); Mean Corpuscular Hemoglobin 33.8 pg (27.0-31.2); Mean Corpuscular Volume 103.4 fl (80-94); Mean Platelet Volume 8.8 fl (7.4-10.4); Monocytes # 0.6 K/mm3 (0.1-1.0); Monocytes % 7.9 % (1.7-9.3); Neutrophils # 5.2 K/mm3 (1.8-7.8); Neutrophils % 72.6 % (37.0-80.0); Platelet Count 349 K/mm3 (142-424); Red Blood Count 4.31 M/mm3 (4.60-6.20); Red Cell Distribution Width 15.2 % (11.5-17.5); White Blood Count 7.2 K/mm3 (4.8-10.8)
[2024-02-24 11:38] LABS: Chloride 112 mmol/L (98-107); Potassium 3.2 mmoL/L (3.5-5.1); Sodium 142 mmol/L (136-145)
[2024-02-24 11:41] LABS: Anion Gap 5.2 mEq/L (5-15); Blood Urea Nitrogen 9 mg/dl (9-20); Calcium 9.1 mg/dl (8.4-10.2); Carbon Dioxide 28 mmol/L (22.0-30.0); Creatinine Clearance Estimated 99 mL/min (50-200); Estimated Glomerular Filt Rate 85 ml/min (>60); GFR (African American) 102 ML/MIN (>60); Glucose 109 mg/dl (74-100)
[2024-02-24] MEDS: 0.9 % SODIUM CHLORIDE 500 ML 25 ML IV (12:06)
[2024-02-24] MEDS: diphenhydrAMINE 50MG/ML VIAL 50 MG IV (12:06)
[2024-02-24] MEDS: HEPARIN 1,000 UNITS/ML 10ML VIAL (CATH LAB) 10000 UNIT IV (12:06)
[2024-02-24] MEDS: LIDOCAINE 1% 10ML MDV 20 ML IJ (12:06)
[2024-02-24] MEDS: HEPARIN 1,000 UNITS/500ML NS (CATH LAB) 3000 UNIT IV (12:06)
[2024-02-24] MEDS: NITROGLYCERIN 800MCG/8ML SYR (CATH LAB) 800 MCG IA (12:06)
[2024-02-24] MEDS: VERAPAMIL 2.5MG/ML 2ML VIAL 2.5 MG IV (12:07)
[2024-02-24] MEDS: FENTANYL 100MCG/2ML VIAL 50 MCG IV (12:16)
[2024-02-24] MEDS: MIDAZOLAM HCL 1MG/1ML 5ML VIAL 1 MG IV (12:16)
[2024-02-24] MEDS: IOPAMIDOL-370 (76%);100ML BOTTLE 120 ML IV (13:08)
[2024-02-24 14:24] LABS: CATHL Activated Clotting Time 310 SEC (74-125)
== END 2024-02-24 15:19 | disposition home or self-care (01) ==
PROVIDERS: PCP Nurse Practitioner Family; Visit Provider Internal Medicine
DX: I10 Essential (primary) hypertension; E78.2 Mixed hyperlipidemia; E66.01 Morbid (severe) obesity due to excess calories; R07.9 Chest pain, unspecified; R06.09 Other forms of dyspnea; I25.118 Atherosclerotic heart disease of native coronary artery with other forms of angina pectoris; Z95.5 Presence of coronary angioplasty implant and graft; R94.31 Abnormal electrocardiogram [ECG] [EKG]; R93.1 Abnormal findings on diagnostic imaging of heart and coronary circulation; F17.210 Nicotine dependence, cigarettes, uncomplicated; Z68.30 Body mass index [BMI] 30.0-30.9, adult; Z79.899 Other long term (current) drug therapy
CPT/HCPCS: 36415; 80048; 85025; 85347; 92928; 92978; 93458; 96375; 99152; 99153; C1725; C1760; C1769; C1874; C9600; J1200; J1644; J2250; J3010; Q9967

== ENCOUNTER 2024-03-08 10:34 | Outpatient (CLI) | payer MEDICARE, SELFPAY ==
[2024-03-08 11:34] LABS: Alanine Aminotransferase 34 U/L (12-78); Albumin Level 3.7 g/dl (3.5-5.0); Alkaline Phosphatase 82 U/L (38-126); Aspartate Amino Transferase 33 U/L (17-59); Bilirubin,Indirect 0.6 mg/dL (0.0-0.9); Bilirubin,Total 0.6 mg/dl (0.2-1.3); Bilirubin,Unconjugated 0.6 mg/dL (0.0-1.1); Chol/HDL Ratio 2.9 (1-3.5); Cholesterol 138 mg/dl (140-200); HDL Cholesterol 48 mg/dl (40-60); Total Protein,Serum 6.4 g/dl (6.3-8.2); Triglycerides 115 mg/dl (30-150); VLDL Cholesterol 23 mg/dL (0-40)
[2024-03-08 11:46] LABS: Direct LDL Cholesterol 66.02 mg/dL (100-129)
== END 2024-03-08 23:59 | disposition home or self-care (01) ==
LOC: LAB 10:36
PROVIDERS: PCP Nurse Practitioner Family; Visit Provider Physician Assistant
DX: I10 Essential (primary) hypertension; E78.2 Mixed hyperlipidemia; F17.210 Nicotine dependence, cigarettes, uncomplicated; F17.290 Nicotine dependence, other tobacco product, uncomplicated
CPT/HCPCS: 36415; 80061; 80076

== ENCOUNTER 2024-03-22 15:49 | Outpatient (CLI) | payer MEDICARE, SELFPAY ==
--- NOTE | 2024-03-22 16:00 | XR_ITS ---
PROCEDURE INFORMATION: Exam: XR Right Hip Exam date and time: 03/22/2024 4:05 PM Age: 63 years old Clinical indication: Hip pain; Right hip; Additional info: Right hip post fall 5 mo ago TECHNIQUE: Imaging protocol: Radiologic exam of the right hip. Views: 2 or 3 views hip with pelvis when performed. COMPARISON: CR XR LUMBAR SPINE 2-3V 03/22/2024 4:05 PM FINDINGS: Bones/joints: No fracture or dislocation. Mild degenerative change of the right hip. The lower lumbar spine degenerative change. Soft tissues: Unremarkable. Other findings: 13 x 8 mm density projecting over the right acetabulum. IMPRESSION: 1. No fracture or dislocation. 2. Mild degenerative change of the right hip. 3. 13 x 8 mm density projecting over the right acetabulum. This could be a soft tissue calcification such as a calcified granuloma or an intra-articular osseous loose body.
--- NOTE | 2024-03-22 16:00 | XR_ITS ---
PROCEDURE INFORMATION: Exam: XR Lumbosacral Spine Exam date and time: 03/22/2024 4:05 PM Age: 63 years old Clinical indication: Injury or trauma; Fall; Other: Pain; Additional info: Lumbago post fall 5 mo ago TECHNIQUE: Imaging protocol: Radiologic exam of the lumbosacral spine. Views: 2 or 3 views. COMPARISON: CR XR LUMBAR SPINE MIN 4V 06/03/2023 2:41 PM FINDINGS: Bones/joints: No compression fractures. Mild multilevel degenerative disc disease. Severe L4-L5 and L5-S1 facet arthropathy. Subtle grade 1 anterolisthesis of L4 over L5. Soft tissues: Unremarkable. Vasculature: Mild aortoiliac atherosclerotic plaque. IMPRESSION: 1. No compression fractures. 2. Mild/moderate lumbar spine degenerative change.
--- NOTE | 2024-03-22 16:00 | XR_ITS ---
PROCEDURE INFORMATION: Exam: XR Left Shoulder Exam date and time: 03/22/2024 4:05 PM Age: 63 years old Clinical indication: Pain; Shoulder; Left; Additional info: Left shoulder pain, decreased rom TECHNIQUE: Imaging protocol: Radiologic exam of the left shoulder. Views: 2 or more views. COMPARISON: CR XR CHEST PORTABLE 03/11/2024 9:37 PM FINDINGS: Bones/joints: No fracture or dislocation. Mild degenerative change of the acromioclavicular and glenohumeral joints. Soft tissues: Normal. IMPRESSION: 1. No acute findings. 2. Mild degenerative change of the acromioclavicular and glenohumeral joints.
--- NOTE | 2024-03-22 16:00 | XR_ITS ---
PROCEDURE INFORMATION: Exam: XR Right Foot Complete; Alignment Exam date and time: 03/22/2024 4:05 PM Age: 63 years old Clinical indication: Pain; Foot; Right; Additional info: Foot pain TECHNIQUE: Imaging protocol: Radiologic exam of the right foot. Views: 3 or more views. COMPARISON: No relevant prior studies available. FINDINGS: Bones/joints: No fracture or dislocation. 1st through 3rd toe valgus deformities at the metatarsophalangeal joints. Mild degenerative change at the 1st metatarsophalangeal joint. Pes planus. Small plantar surface calcaneal enthesophyte. Soft tissues: Normal. IMPRESSION: 1. Valgus deformities of the 1st through 3rd toes at the metatarsophalangeal joints. 2. Pes planus. 3. Plantar surface calcaneal enthesophyte.
--- NOTE | 2024-03-22 16:00 | XR_ITS ---
PROCEDURE INFORMATION: Exam: XR Left Foot Complete; Alignment Exam date and time: 03/22/2024 4:05 PM Age: 63 years old Clinical indication: Pain; Foot; Left; Additional info: Foot pain TECHNIQUE: Imaging protocol: Radiologic exam of the left foot. Views: 3 or more views. COMPARISON: CR XR KNEE LT 3V 06/03/2023 2:41 PM FINDINGS: Bones/joints: No fracture or dislocation. Hallux valgus. There is also valgus of the 2nd and 3rd toes at the metatarsophalangeal joints. Pes planus. Small plantar surface calcaneal enthesophyte. Soft tissues: Normal. IMPRESSION: 1. Mild valgus deformities of the 1st through 3rd toes at the metatarsophalangeal joints. 2. Pes planus. 3. Plantar surface calcaneal enthesophyte.
[2024-03-22 16:18] LABS: Basophils # 0.1 K/mm3 (0-0.2); Basophils % 0.6 % (0.1-2.0); Eosinophils # 0.1 K/mm3 (0.0-0.4); Eosinophils % 0.9 % (0.1-12.0); Hematocrit 47.1 % (42.0-52.0); Hemoglobin 14.8 g/dL (14.1-18.0); Lymphocytes # 1.2 K/mm3 (0.7-4.5); Lymphocytes % 11.7 % (10-50); Mean Corpuscular HGB Conc 31.3 g/dL (31.8-35.4); Mean Corpuscular Hemoglobin 33.1 pg (27.0-31.2); Mean Corpuscular Volume 105.5 fl (80-94); Mean Platelet Volume 8.1 fl (7.4-10.4); Monocytes # 0.5 K/mm3 (0.1-1.0); Monocytes % 5.1 % (1.7-9.3); Neutrophils # 8.1 K/mm3 (1.8-7.8); Neutrophils % 81.7 % (37.0-80.0); Platelet Count 372 K/mm3 (142-424); Red Blood Count 4.47 M/mm3 (4.60-6.20); Red Cell Distribution Width 15.3 % (11.5-17.5); White Blood Count 9.9 K/mm3 (4.8-10.8)
[2024-03-22 16:36] LABS: Albumin Level 4.2 g/dl (3.5-5.0); Chloride 106 mmol/L (98-107)
[2024-03-22 16:37] LABS: Potassium 4.1 mmoL/L (3.5-5.1); Sodium 139 mmol/L (136-145)
[2024-03-22 17:17] LABS: Anion Gap 9.1 mEq/L (5-15); Bilirubin,Total 0.7 mg/dl (0.2-1.3); Blood Urea Nitrogen 10 mg/dl (9-20); Calcium 9.2 mg/dl (8.4-10.2); Carbon Dioxide 28 mmol/L (22.0-30.0); Estimated Glomerular Filt Rate 85 ml/min (>60); GFR (African American) 102 ML/MIN (>60); Glucose 99 mg/dl (74-100); Magnesium 1.9 mg/dl (1.6-2.3)
[2024-03-22 17:18] LABS: Alanine Aminotransferase 39 U/L (12-78); Albumin/Globulin Ratio 1.6 (1.1-1.8); Alkaline Phosphatase 96 U/L (38-126); Aspartate Amino Transferase 31 U/L (17-59); Globulin 2.6 g/dL (1.3-3.2); Total Protein,Serum 6.8 g/dl (6.3-8.2)
[2024-03-22 18:43] LABS: Vitamin B12 427 pg/mL (239-931)
== END 2024-03-22 23:59 | disposition home or self-care (01) ==
LOC: LAB 15:49
PROVIDERS: PCP Nurse Practitioner Family; Visit Provider Nurse Practitioner Family
DX: M54.50 Low back pain, unspecified (principal); I10 Essential (primary) hypertension; R58 Hemorrhage, not elsewhere classified; M25.551 Pain in right hip; M25.512 Pain in left shoulder; M79.673 Pain in unspecified foot
CPT/HCPCS: 36415; 72100; 73030; 73502; 73630; 80050; 80053; 82180; 82607; 83735; 84443; 85025

== ENCOUNTER 2024-04-16 22:01 | Observation (INO) | payer MEDICARE, SELFPAY ==
--- NOTE | 2024-04-16 20:55 | ECG_ITS ---
APPROVED REPORT Exam: Resting ECG HR:93 bpm ECG Measurements Heart Rate 93 AXES NC 160 P 74 QRSd 120 QRS -61 QT 367 T 74 QTc 417 Conclusion SINUS RHYTHM LEFT ANTERIOR FASCICULAR BLOCK [QRS AXIS <= -45, QR IN I, RS IN II] LEFT VENTRICULAR HYPERTROPHY AND ST-T CHANGE [VOLTAGE CRITERIA PLUS ST/T ABNORMALITY] ABNORMAL ECG UNCONFIRMED REPORT Electronically signed by : CLAUDETTE MARTINEZ, 04/17/2024 03:46:51
[2024-04-16 21:59] VITALS: BP 123/75; PULSE 94; RESP 20; TEMP 36.7; O2SAT 98; BMI 44.4
--- NOTE | 2024-04-16 22:08 | XR_ITS ---
PROCEDURE INFORMATION: Exam: XR Chest Exam date and time: 04/16/2024 10:08 PM Age: 63 years old Clinical indication: Pain; Chest pressure; Additional info: Cp TECHNIQUE: Imaging protocol: Radiologic exam of the chest. Views: 1 view. COMPARISON: CR XR CHEST PORTABLE 03/11/2024 9:37 PM FINDINGS: Lungs: No evidence of acute pulmonary disease or infiltrates Pleural spaces: No large effusion or pneumothorax. Heart/Mediastinum: Stable cardiac and mediastinal contours. Bones/joints: There is partially visualized cervical spine surgical hardware. IMPRESSION: No dense parenchymal consolidation, pleural effusion, or pneumothorax.
--- NOTE | 2024-04-16 22:14 | ED_ITS ---
Discharge Plan Disposition Patient Disposition: Home, Self-Care Chief Complaint: Chest Pain Prescriptions Prescriptions: No Action dutasteride 0.5 mg capsule 0.5 mg PO DAILY famotidine [Pepcid] 20 mg tablet 20 mg PO BID Qty: 60 2RF triamcinolone acetonide 0.1 % cream topical Patient Comments: APPLY TOPICALLY TO THE AFFECTED AREA(S) TWICE DAILY amlodipine 5 mg tablet 5 mg PO DAILY Qty: 30 5RF tamsulosin 0.4 mg capsule 0.4 mg PO HS 90 Days Qty: 90 albuterol sulfate 90 mcg/actuation HFA aerosol inhaler 2 puff INHALATION QIDP PRN (Reason: Shortness Of Breath) 25 Days Qty: 9 Patient Comments: INHALE 2 PUFFS BY MOUTH FOUR TIMES DAILY * SHAKE WELL BEFORE USE * budesonide-formoterol 160-4.5 mcg/actuation HFA aerosol inhaler 2 puff INHALATION BIDRT 30 Days Qty: 10 gabapentin 300 mg capsule 300 mg PO TID 90 Days Qty: 270 lamotrigine 100 mg tablet 150 mg PO BID 90 Days Qty: 270 methotrexate sodium 2.5 mg tablet 20 mg PO FAIR folic acid 1 mg tablet 1 mg PO DAILYP PRN (Reason: SUPPLEMENT) Patient Comments: TAKE ONE TABLET BY MOUTH EVERY DAY EXCEPT FOR THE DAY you take methotrexate spironolactone 50 mg tablet 50 mg PO DAILY aspirin [Adult Low Dose Aspirin] 81 mg tablet,delayed release (DR/EC) 81 mg PO DAILY Qty: 90 2RF pantoprazole 40 mg tablet,delayed release (DR/EC) 40 mg PO DAILY ranolazine 1,000 mg tablet extended release 12 hr 1,000 mg PO BID furosemide 40 mg tablet 80 mg PO DAILY atorvastatin 80 mg tablet 80 mg PO HS clopidogrel 75 mg tablet 75 mg PO DAILY aripiprazole 20 mg tablet 20 mg PO DAILY potassium chloride 10 mEq tablet extended release 10 meq PO DAILY Patient Comments: TAKE ONE TABLET BY MOUTH EVERY DAY isosorbide mononitrate 60 mg tablet extended release 24 hr 60 mg PO BID nitroglycerin 0.4 mg tablet, sublingual 0.4 mg sublingual Q5MINP PRN (Reason: Chest Pain) metoprolol succinate 100 mg tablet extended release 24 hr 50 mg PO DAILY Referrals Follow up/Referrals: Provider,Referral, MD [Referring] - See instructions Clinical Impressions Clinical Impression: Angina pectoris, unstable Print Language Print Language: Zambian Discharge ED Provider: Jaylan Solano HPI General Chief Complaint: Chest Pain Stated Complaint: Chest Pain Time Seen by Provider: 04/16/24 22:07 History of Present Illness HPI narrative: Patient is a 63-year-old male with past medical history of ACS x 4 status post stenting. He reportedly has 10 stents. He is on dual antiplatelet therapy. He has hypertension, hyperlipidemia, obesity, acid reflux. He presents emergency department for evaluation of chest pain. Onset was acute, left-sided sternal border consistent with his previous cardiac chest pain 1 hour prior to arrival. Symptoms were moderate to severe in intensity causing her to present here for continued evaluation. He has a slight chronic smoker's cough however has no other acute complaints at this time. Related Data Home Medications ?Medication ?Instructions ?Recorded ?Confirmed albuterol sulfate 90 mcg/actuation 2 puff inhalation QIDP PRN 10/27/18 04/05/24 aerosol inhaler Shortness Of Breath 25 days #9 grams budesonide-formoterol HFA 160 2 puff inhalation BIDRT 30 days 10/27/18 04/05/24 mcg-4.5 mcg/actuation aerosol #10 grams inhaler tamsulosin 0.4 mg capsule 0.4 mg PO HS 90 days #90 caps 10/27/18 04/05/24 dutasteride 0.5 mg capsule 0.5 mg PO DAILY 10/10/19 04/05/24 gabapentin 300 mg capsule 300 mg PO TID 90 days #270 caps 10/10/19 04/05/24 lamotrigine 100 mg tablet 150 mg PO BID 90 days #270 tabs 10/10/19 04/05/24 folic acid 1 mg tablet 1 mg PO DAILYP PRN SUPPLEMENT 10/26/22 04/05/24 methotrexate sodium 2.5 mg tablet 20 mg PO FAIR 10/26/22 04/05/24 spironolactone 50 mg tablet 50 mg PO DAILY 07/06/23 04/05/24 aripiprazole 20 mg tablet 20 mg PO DAILY 03/12/24 04/05/24 atorvastatin 80 mg tablet 80 mg PO HS 03/12/24 04/05/24 clopidogrel 75 mg tablet 75 mg PO DAILY 03/12/24 04/05/24 furosemide 40 mg tablet 80 mg PO DAILY 03/12/24 04/05/24 isosorbide mononitrate 60 mg 60 mg PO BID 03/12/24 04/05/24 tablet,extended release 24 hr nitroglycerin 0.4 mg sublingual 0.4 mg sublingual Q5MINP PRN Chest 03/12/24 04/05/24 tablet Pain pantoprazole 40 mg tablet,delayed 40 mg PO DAILY 03/12/24 04/05/24 release potassium chloride 10 mEq 10 meq PO DAILY 03/12/24 04/05/24 tablet,extended release ranolazine 1,000 mg 1,000 mg PO BID 03/12/24 04/05/24 tablet,extended release,12 hr triamcinolone acetonide 0.1 % applic topical 03/21/24 04/05/24 topical cream metoprolol succinate 100 mg 50 mg PO DAILY 03/22/24 04/05/24 tablet,extended release 24 hr Previous Rx's ?Medication ?Instructions ?Recorded aspirin 81 mg tablet,delayed 81 mg PO DAILY Heart disease #90 10/09/20 release (Adult Low Dose Aspirin) tabs famotidine 20 mg tablet (Pepcid) 20 mg PO BID #60 tabs 06/11/22 amlodipine 5 mg tablet 5 mg PO DAILY #30 tabs 03/21/24 Allergies Allergy/AdvReac Type Severity Reaction Status Date / Time nickel [NICKEL] Allergy Unknown I-RASH Verified 04/05/24 14:33 quetiapine [From SEROQUEL] Allergy Unknown I-RASH Verified 04/05/24 14:33 NSAIDS (Non-Steroidal AdvReac Verified 04/05/24 14:33 Anti-Inflamma [facility] Disclaimer: The information contained in this section may have been updated after the patient was seen, as this information can be updated by other users. Medical History Abnormal nuclear cardiac imaging test Angina pectoris Hypertension Hyperlipidemia Abnormal result of cardiovascular function study Tachycardia Unstable angina Dizziness GERD (gastroesophageal reflux disease) Abnormal cardiovascular stress test Typical angina Tobacco dependence syndrome Abnormal EKG CAD (coronary artery disease) Edema Dyspnea Chest pain Surgical History History of cardiac cath H/O heart artery stent History of coronary artery stent placement Family History Other No significant family history Social History Smoking Status: Current some day smoker tobacco type: cigarettes packs per day: 1 and pipe alcohol intake: current alcohol intake frequency: a few times a month substance use type: former substance user and marijuana counseling given: No (patient refused) counseling provided: none current occupational status: disabled Travel in the last 8 weeks: None household members: children housing: house marital status: half-way: No caffeine: Yes physical activity: none ROS Obtained: Yes Systems reviewed as appropriate & no additional complaints except as documented Physical Exam General General appearance: alert and in no apparent distress Head Head exam: atraumatic and normocephalic Eye Eye exam: Present PERRL ENT ENT exam: Present mucous membranes moist Neck Neck exam: Present normal inspection Chest Chest inspection: Present normal inspection and symmetric chest wall rise Respiratory Respiratory exam: Present normal lung sounds bilaterally; Absent respiratory distress Cardiovascular Cardiovascular exam: Present regular rate and normal rhythm Abdominal Exam Abdominal exam: Present soft; Absent tenderness Extremities Exam Extremities exam: Present normal inspection Neurological Exam Neurological exam: Present alert Psychiatric Psychiatric exam: Present normal affect Skin Skin exam: Present warm and dry HEART Score HEART Score HEART Score assessment performed?: Yes History (anamnesis): Highly suspicious ECG: Non-specific disturbance Age: >65 years Risk factors: Atherosclerosis history Troponin: </= normal limit HEART Score: 7 Critical Care Critical Care Time Critical Care Time: Yes Attestation: On 04/16/24, the high probability of a clinically significant, sudden or life threatening deterioration of the following system(s) required my full and direct attention, intervention and personal management. The time I documented below is in addition to time spent performing reported procedures but includes the following listed in this critical care notation. Total Time Total Critical Care Time: 40 Medical Decision Making Tk Inquiry Pt receiving controlled substance: No Vital Signs Vital Signs: 04/16/24 21:59 Temperature 98.0 F Temperature Source Oral Pulse Rate [Right] 94 H Respiratory Rate 20 Blood Pressure [Right Arm] 123/75 Blood Pressure Mean [Right Arm] 91 Blood Pressure Source [Right Arm] Automatic Cuff 02 Sat by Pulse Oximetry 98 Oxygen Delivery Method Room Air Lab Data Labs: Lab Results 04/16/24 22:00: WBC 9.5, RBC 4.04 L, Hgb 13.7 L, Hct 43.9, MCV 108.7 H, MCH 33.8 H, MCHC 31.1 L, RDW 15.3, Plt Count 372, MPV 8.4, Neut % (Auto) 79.6, Lymph % (Auto) 16.0, [place] % (Auto) 3.2, Eos % (Auto) 0.6, Baso % (Auto) 0.6, Neut # (Auto) 7.6, Lymph # (Auto) 1.5, [place] # (Auto) 0.3, Eos # (Auto) 0.1, Baso # (Auto) 0.1, Sodium 139, Potassium 3.6, Chloride 110 H, Carbon Dioxide 25, Anion Gap 7.6, BUN 15, Creatinine 1.00, Estimated Creat Clear 76, Estimated GFR 75, Est GFR ( Amer) 91, Glucose 140 H, Calcium 8.9, Total Bilirubin 0.5, AST 34, ALT 39, Alkaline Phosphatase 73, Troponin I < 0.01, Total Protein 6.6, Albumin 3.9, Globulin 2.7, Albumin/Globulin Ratio 1.4 04/16/24 22:00 04/16/24 22:00 Response Orders (Tests/Meds): ED MEDICATIONS Generic Name Dose Route Start Last Admin Trade Name Freq PRN Reason Stop Dose Admin Nitroglycerin 0.4 mg 04/16/24 22:12 04/16/24 22:20 Nitroglycerin 0.4mg Sl Tablet SL 05/16/24 22:11 0.4 mg Q5MINP PRN Administration Chest Pain Discontinued Medications Generic Name Dose Route Start Last Admin Trade Name Freq PRN Reason Stop Dose Admin Aspirin 324 mg 04/16/24 22:12 04/16/24 22:20 Aspirin 81mg Chewable Tablet PO 04/16/24 22:13 324 mg ONCE ONE Administration Belladonna Alkaloids 60 ml 04/16/24 22:18 04/16/24 22:41 Belladonna Alkaloids 60 Ml Ml PO 04/16/24 22:19 60 ml ONCE ONE Administration Morphine Sulfate 4 mg 04/16/24 22:08 04/16/24 22:21 Morphine 4mg/Ml Syringe IV 04/16/24 22:09 4 mg ONCE ONE Administration ORDERS Category Date Time Status CXR --portable [XR chest portable] Stat Exams 04/16/24 22:08 Taken CBC w/Auto Diff [Complete Blood Count Auto Diff] Stat Lab 04/16/24 22:00 Completed CMP [Comprehensive Metabolic Panel] Stat Lab 04/16/24 22:00 Completed Trop I [Troponin I] Stat Lab 04/16/24 22:00 Completed Troponin I Q3H Lab 04/17/24 01:15 Ordered Troponin I Q3H Lab 04/17/24 04:15 Ordered ECG Data Tracing #1: ECG Narrative: Independently interpreted by me rate is 93, rhythm is regular, axis is leftward deviated, no ST elevation in anatomical contiguous leads, left anterior fascicular block. QTc 417 MDM Narrative Medical Decision Narrative: In summary patient is a 63-year-old male with past medical history described above who presents emergency department for evaluation of chest pain. Patient is hemodynamically stable nontoxic-appearing upon arrival, afebrile. Differential includes ACS, unstable angina, among others. Workup be conducted with hematologic labs, chest x-ray, EKG, serial troponins. Initial inventions include morphine, GI cocktail, aspirin, nitroglycerin. Initial workup reviewed by me, hematologic labs are nonactionable, no significant leukocytosis, initial troponin undetectably low. Chest x-ray informally interpreted by me, no acute large lobar opacities or pneumothorax. Given only 1 hour chest pain prior to arrival troponins are not sensitive enough to rule out ACS at this time patient will require prolonged serial troponins and cardiac evaluation. Given this case discussed with hospital medicine regarding management they will move patient to service for continued evaluation at this time.
[2024-04-16 22:15] LABS: Basophils # 0.1 K/mm3 (0-0.2); Basophils % 0.6 % (0.1-2.0); Eosinophils # 0.1 K/mm3 (0.0-0.4); Eosinophils % 0.6 % (0.1-12.0); Hematocrit 43.9 % (42.0-52.0); Hemoglobin 13.7 g/dL (14.1-18.0); Lymphocytes # 1.5 K/mm3 (0.7-4.5); Mean Corpuscular HGB Conc 31.1 g/dL (31.8-35.4); Mean Corpuscular Hemoglobin 33.8 pg (27.0-31.2); Mean Corpuscular Volume 108.7 fl (80-94); Mean Platelet Volume 8.4 fl (7.4-10.4); Monocytes # 0.3 K/mm3 (0.1-1.0); Monocytes % 3.2 % (1.7-9.3); Neutrophils # 7.6 K/mm3 (1.8-7.8); Neutrophils % 79.6 % (37.0-80.0); Platelet Count 372 K/mm3 (142-424); Red Blood Count 4.04 M/mm3 (4.60-6.20); Red Cell Distribution Width 15.3 % (11.5-17.5); White Blood Count 9.5 K/mm3 (4.8-10.8)
[2024-04-16 22:17] LABS: Albumin Level 3.9 g/dl (3.5-5.0); Chloride 110 mmol/L (98-107); Potassium 3.6 mmoL/L (3.5-5.1); Sodium 139 mmol/L (136-145)
[2024-04-16 22:19] LABS: Blood Urea Nitrogen 15 mg/dl (9-20); Creatinine Clearance Estimated 76 mL/min (50-200); Estimated Glomerular Filt Rate 75 ml/min (>60); GFR (African American) 91 ML/MIN (>60)
[2024-04-16 22:20] LABS: Alanine Aminotransferase 39 U/L (12-78); Albumin/Globulin Ratio 1.4 (1.1-1.8); Alkaline Phosphatase 73 U/L (38-126); Anion Gap 7.6 mEq/L (5-15); Aspartate Amino Transferase 34 U/L (17-59); Bilirubin,Total 0.5 mg/dl (0.2-1.3); Calcium 8.9 mg/dl (8.4-10.2); Carbon Dioxide 25 mmol/L (22.0-30.0); Globulin 2.7 g/dL (1.3-3.2); Glucose 140 mg/dl (74-100); Total Protein,Serum 6.6 g/dl (6.3-8.2)
[2024-04-16] MEDS: NITROGLYCERIN 0.4MG SL TABLET 0.4 MG SL (22:20)
[2024-04-16] MEDS: ASPIRIN 81MG CHEWABLE TABLET 324 MG PO (22:20)
[2024-04-16] MEDS: MORPHINE 4MG/ML SYRINGE 4 MG IV (22:21)
[2024-04-16 22:37] LABS: Troponin I < 0.01 ng/ml (0.00-0.034)
[2024-04-16] MEDS: BELLADONNA ALKALOIDS 60 ML ML PO (22:41)
[2024-04-17] VITALS (8 sets, daily range): BP systolic 108–141; BP diastolic 54–68; PULSE 56–73; RESP 14–19; TEMP 36.6–36.8; O2SAT 93–98; BMI 43.2
[2024-04-17] MEDS: ISOSORBIDE MONO 60MG TAB.ER.24H 60 MG PO ×2 (00:49→09:25)
--- NOTE | 2024-04-17 01:02 | ECG_ITS ---
APPROVED REPORT Exam: Resting ECG HR:59 bpm ECG Measurements Heart Rate 59 AXES VT 164 P 77 QRSd 120 QRS -58 QT 415 T 23 QTc 414 Conclusion SINUS BRADYCARDIA WITH SINUS ARRHYTHMIA POSSIBLE RIGHT VENTRICULAR CONDUCTION DELAY [RSR (QR) IN V1/V2] LEFT ANTERIOR FASCICULAR BLOCK [QRS AXIS <= -45, QR IN I, RS IN II] MINIMAL VOLTAGE CRITERIA FOR LVH, CONSIDER NORMAL VARIANT [MEETS CRITERIA IN ONE OF: R(aVL), S(V1), R(V5), R(V5/V6)+S(V1)] ABNORMAL ECG UNCONFIRMED REPORT Electronically signed by : Savage Reardon MD 04/18/2024 18:19:21
--- NOTE | 2024-04-17 01:13 | PC.NURSE ---
pt arrived to overflow unit at 00:40 via wheelchair.
[2024-04-17 01:48] LABS: Troponin I < 0.01 ng/ml (0.00-0.034)
--- NOTE | 2024-04-17 03:13 | EXP.HP ---
History of Present Illness *Admission Date: 04/17/24 *Reason for visit:: Left-sided chest pain *History of present illness: This patient who has had multiple stents long history of cardiovascular disease seeing Dr. Sky, developed heart pain today being on his medication it did not relieve had to start taken sublingual nitroglycerin without relief and has come to the emergency room. When I saw him he listed his pain is 3 of 10 he said he got as high as 6 of 10. He gave a history of having a stent placed about a month ago he is still a smoker. He noted that his had 3 months ago. She had had a traumatic fracture but and then an illness and ventilated before she tells me he is set up for an appointment on the of this month for grief counseling and he said it was here at the hospital.. Patient noted that he still smokes THC and used to smoke up to 2 packs a day. His other issue is he says he is becoming a little bit unstable walking and keeps bumping into the wall kind of causing small nicks to his arm but denies falling PFSH PFS Disclaimer: The information contained in this section may have been updated after the patient was seen, as this information can be updated by other users. Medical History Abnormal nuclear cardiac imaging test Angina pectoris Hypertension Hyperlipidemia Abnormal result of cardiovascular function study Tachycardia Unstable angina Dizziness GERD (gastroesophageal reflux disease) Abnormal cardiovascular stress test Typical angina Tobacco dependence syndrome Abnormal EKG CAD (coronary artery disease) Edema Dyspnea Chest pain Surgical History H/O removal of cyst History of cardiac cath H/O heart artery stent History of coronary artery stent placement Family History Other No significant family history Social History Smoking Status: Current some day smoker tobacco type: cigarettes packs per day: 1 and pipe alcohol intake: current alcohol intake frequency: a few times a month substance use type: former substance user and marijuana counseling given: No (patient refused) counseling provided: none current occupational status: disabled Travel in the last 8 weeks: None household members: children housing: house marital status: chcf: No caffeine: Yes physical activity: none Review of Systems Review of Systems Review of systems:: pertinent systems reviewed and negative unless documented below Constitutional Constitutional: Reports as per HPI and Reports weight gain Comments: Patient just states he has had a difficult time dealing with the loss of his , seeking care on the of this month. Eyes Eyes: Reports as per HPI ENT Ears, Nose, Mouth, and Throat: Reports as per HPI *Cardiovascular Cardiovascular: Reports chest pain, Reports chest pain at rest, Reports chest pain with activity and Reports rapid heart rate *Respiratory Respiratory: Reports as per HPI *Gastrointestinal Gastrointestinal: Reports as per HPI *Genitourinary Genitourinary: Reports as per HPI *Musculoskeletal Musculoskeletal: Reports as per HPI Integumentary/Breasts Skin/Breast: Reports as per HPI *Neurologic Neurologic: Reports as per HPI Psychiatric Psychiatric: Reports as per HPI Endocrine Endocrine: Reports as per HPI Hematologic/Lymphatic Hematologic/Lymphatic: Reports as per HPI Allergic/Immunologic Allergic/Immunologic: Reports as per HPI Meds Home Medications and Allergies Home Medications ?Medication ?Instructions ?Recorded ?Confirmed ?Type albuterol sulfate 90 mcg/actuation 2 puff inhalation QIDP PRN 10/27/18 04/17/24 History aerosol inhaler Shortness Of Breath 25 days #9 grams budesonide-formoterol HFA 160 2 puff inhalation BIDRT 30 days 10/27/18 04/17/24 History mcg-4.5 mcg/actuation aerosol #10 grams inhaler tamsulosin 0.4 mg capsule 0.4 mg PO HS 90 days #90 caps 10/27/18 04/17/24 History gabapentin 300 mg capsule 300 mg PO TID 90 days #270 caps 10/10/19 04/17/24 History aspirin 81 mg tablet,delayed 81 mg PO DAILY Heart disease #90 10/09/20 04/17/24 Rx release (Adult Low Dose Aspirin) tabs folic acid 1 mg tablet 1 mg PO DAILY 10/26/22 04/17/24 History methotrexate sodium 2.5 mg tablet 20 mg PO FAIR 10/26/22 04/17/24 History spironolactone 50 mg tablet 50 mg PO DAILY 07/06/23 04/17/24 History aripiprazole 20 mg tablet 20 mg PO DAILY 03/12/24 04/17/24 History atorvastatin 80 mg tablet 80 mg PO HS 03/12/24 04/17/24 History furosemide 40 mg tablet 80 mg PO DAILY 03/12/24 04/17/24 History isosorbide mononitrate 60 mg 60 mg PO BID 03/12/24 04/17/24 History tablet,extended release 24 hr nitroglycerin 0.4 mg sublingual 0.4 mg sublingual Q5MINP PRN Chest 03/12/24 04/17/24 History tablet Pain pantoprazole 40 mg tablet,delayed 40 mg PO DAILY 03/12/24 04/17/24 History release potassium chloride 10 mEq 10 meq PO DAILY 03/12/24 04/17/24 History tablet,extended release amlodipine 5 mg tablet 5 mg PO DAILY #30 tabs 03/21/24 04/17/24 Rx metoprolol succinate 100 mg 50 mg PO DAILY 03/22/24 04/17/24 History tablet,extended release 24 hr cholecalciferol (vitamin D3) 125 5,000 unit PO DAILY 04/17/24 04/17/24 History mcg (5,000 unit) tablet (Vitamin D3) clopidogrel 75 mg tablet 75 mg PO DAILY 04/17/24 04/17/24 History dutasteride 0.5 mg capsule 0.5 mg PO DAILY 04/17/24 04/17/24 History lamotrigine 150 mg tablet 150 mg PO BID 04/17/24 04/17/24 History ranolazine 1,000 mg 1,000 mg PO BID 30 days #60 tabs 04/17/24 Rx tablet,extended release,12 hr vit C 250 mg-vit E 90 mg-zinc 40 1 cap PO BID 04/17/24 04/17/24 History mg-copper 1 [id number] capsule (PreserVision AREDS-2) New Prescriptions to Start Prescriptions: ranolazine Owen Lorenz Allergies Allergy/AdvReac Type Severity Reaction Status Date / Time nickel [NICKEL] Allergy Unknown I-RASH Verified 04/05/24 14:33 quetiapine [From SEROQUEL] Allergy Unknown I-RASH Verified 04/05/24 14:33 NSAIDS (Non-Steroidal AdvReac Verified 04/05/24 14:33 Anti-Inflamma Exam Data for Last 24 hours Vital signs and Labs for Last 24 Hours: Temp Pulse Resp BP Pulse Ox O2 Del Method 98.2 F 64 14 109/62 L 93 L Room Air 04/17/24 00:57 04/17/24 02:00 04/17/24 02:00 04/17/24 02:00 04/17/24 02:00 04/17/24 02:00 Laboratory Results - last 24 hr 04/16/24 22:00: WBC 9.5, RBC 4.04 L, Hgb 13.7 L, Hct 43.9, MCV 108.7 H, MCH 33.8 H, MCHC 31.1 L, RDW 15.3, Plt Count 372, MPV 8.4, Neut % (Auto) 79.6, Lymph % (Auto) 16.0, [place] % (Auto) 3.2, Eos % (Auto) 0.6, Baso % (Auto) 0.6, Neut # (Auto) 7.6, Lymph # (Auto) 1.5, [place] # (Auto) 0.3, Eos # (Auto) 0.1, Baso # (Auto) 0.1, Sodium 139, Potassium 3.6, Chloride 110 H, Carbon Dioxide 25, Anion Gap 7.6, BUN 15, Creatinine 1.00, Estimated Creat Clear 76, Estimated GFR 75, Est GFR ( Amer) 91, Glucose 140 H, Calcium 8.9, Total Bilirubin 0.5, AST 34, ALT 39, Alkaline Phosphatase 73, Troponin I < 0.01, Total Protein 6.6, Albumin 3.9, Globulin 2.7, Albumin/Globulin Ratio 1.4 04/17/24 01:15: Troponin I < 0.01 I & O for Last 24 hours: Intake & Output 04/14/24 04/15/24 04/16/24 04/17/24 23:59 23:59 23:59 23:59 Weight 140.614 kg 137.076 kg Radiology Reports for the Last 24 Hours: Chest x-ray showed no acute findings Constitutional Constitutional: mild distress, obese and chronically ill appearing Comments: Patient is alert oriented speaks well., Actually was kind of happy talking about his younger days has been going over history *Routine HEENT Exam Head: Present normocephalic and atraumatic Eye: Present EOMI and PERRL ENT: Present mucous membranes moist *Routine Neck Exam Neck: Present supple, full ROM and normal carotid upstroke Comments: No carotid bruits heard Routine Chest/Breast/Axilla Exam Comments: No chest wall tenderness injury was found or reported or reported *Routine Respiratory Exam Respiratory: Present CTA bilaterally, normal respiratory effort and able to speak in complete sentences *Routine Cardiovascular Exam Cardiovascular: Present RRR, Normal S1 and Normal S2 Comments: No significant murmurs heard *Routine Abdominal Exam Abdominal: Present soft and normoactive bowel sounds Comments: Nontender to palpation *Routine Rectal Exam Rectal:: deferred *Routine Genitalia Exam Genitalia:: deferred *Routine Extremities Exam Extremities: Present full ROM and pulses intact Comments: No edema with normal color to both lower extremities Routine Back/Spine/Pelvis Exam Back/Spine: Present full ROM Comments: Patient is able to stand move and walk without assistance *Routine Skin Exam Skin: Present intact Comments: No bruising or injuries found *Routine Neurological Exam Neurological: Present alert, oriented X3, CN II-XII intact and normal tone Comments: Patient is equal strength bilaterally no signs of weakness on either side., He is able to stand and walk, but reported that when he is walking sometimes he just finds himself bumping into the wall which has caused some slight injuries to the skin of his forearms Routine Psychiatric Exam Psychiatric: Present normal affect, normal thought process, cooperative, good insight and good judgment H&P: Result Impressions 1. Chest pain at rest 2. COPD 3. Unstable ambulation. Imaging and Cardiology Chest x-ray: Additional comments: No acute finding Assessment and Plan *Assessment and plan (1) Angina pectoris, unstable: Status: Acute Category: Medical Code(s): I20.0 - Unstable angina (2) Complicated grieving: Status: Acute Category: Medical Code(s): F43.21 - Adjustment disorder with depressed mood (3) Gait instability: Status: Acute Category: Medical Code(s): R26.81 - Unsteadiness on feet Plan Discussed case with ER physician, request admission for chest pain and high risk patient. Medicine agreed to admit. 1. Chest pain, continue present medicines consult cardiology to evaluate the patient tomorrow, monitor troponin which is remain normal, 2. Grieving process, has appointment on the 3. Unstable gait recently starting to bump into cormier, will consult physical therapy for evaluation 4. Uses THC Rounded on patient after nurse practitioner. Personally examined and interviewed patient. Agree with exam findings and care plan as documented.
[2024-04-17 04:41] LABS: Basophils # 0.1 K/mm3 (0-0.2); Basophils % 0.9 % (0.1-2.0); Eosinophils # 0.1 K/mm3 (0.0-0.4); Eosinophils % 1.7 % (0.1-12.0); Hematocrit 40.6 % (42.0-52.0); Hemoglobin 12.7 g/dL (14.1-18.0); Lymphocytes # 1.6 K/mm3 (0.7-4.5); Lymphocytes % 20.1 % (10-50); Mean Corpuscular HGB Conc 31.3 g/dL (31.8-35.4); Mean Corpuscular Hemoglobin 33.3 pg (27.0-31.2); Mean Corpuscular Volume 106.3 fl (80-94); Mean Platelet Volume 7.7 fl (7.4-10.4); Monocytes # 0.4 K/mm3 (0.1-1.0); Monocytes % 4.9 % (1.7-9.3); Neutrophils # 5.8 K/mm3 (1.8-7.8); Neutrophils % 72.4 % (37.0-80.0); Platelet Count 330 K/mm3 (142-424); Red Blood Count 3.82 M/mm3 (4.60-6.20); Red Cell Distribution Width 15.4 % (11.5-17.5); White Blood Count 7.9 K/mm3 (4.8-10.8)
[2024-04-17 04:49] LABS: Alanine Aminotransferase 33 U/L (12-78); Albumin Level 3.3 g/dl (3.5-5.0); Albumin/Globulin Ratio 1.2 (1.1-1.8); Alkaline Phosphatase 64 U/L (38-126); Aspartate Amino Transferase 35 U/L (17-59); Bilirubin,Total 0.5 mg/dl (0.2-1.3); Blood Urea Nitrogen 17 mg/dl (9-20); Calcium 8.5 mg/dl (8.4-10.2); Carbon Dioxide 27 mmol/L (22.0-30.0); Chloride 110 mmol/L (98-107); Creatinine Clearance Estimated 76 mL/min (50-200); Estimated Glomerular Filt Rate 75 ml/min (>60); GFR (African American) 91 ML/MIN (>60); Globulin 2.7 g/dL (1.3-3.2); Glucose 96 mg/dl (74-100); Sodium 138 mmol/L (136-145)
[2024-04-17 04:55] LABS: Anion Gap 4.8 mEq/L (5-15); Potassium 3.8 mmoL/L (3.5-5.1)
[2024-04-17 05:04] LABS: Troponin I < 0.01 ng/ml (0.00-0.034)
--- NOTE | 2024-04-17 05:08 | PC.NURSE ---
Alert and oriented. No complaints of pain since arriving to the floor. NSR on tele. Lung sounds clear. No edema noted. Room air. Has been ask if needed to void, pt states he does not need to. Bed alarm on due to patient stating he has had multiple falls at home. Call light in reach.
[2024-04-17] MEDS: AMLODIPINE 5MG TABLET 5 MG PO (09:23)
[2024-04-17] MEDS: RANOLAZINE 500MG ER TABLET 500 MG PO (09:23)
[2024-04-17] MEDS: METOPROLOL SUCCINATE XL 50MG TABLET 50 MG PO (09:23)
[2024-04-17] MEDS: GABAPENTIN 300MG CAPSULE 300 MG PO (09:23)
[2024-04-17] MEDS: ASPIRIN EC 81MG TABLET 81 MG PO (09:23)
[2024-04-17] MEDS: CLOPIDOGREL 75MG TAB 75 MG PO (09:23)
[2024-04-17] MEDS: POTASSIUM CHLORIDE 10MEQ TABLET.ER 10 MEQ PO (09:23)
[2024-04-17] MEDS: ARIPiprazole 10MG TABLET 20 MG PO (09:24)
[2024-04-17] MEDS: SPIRONOLACTONE 25MG TABLET 50 MG PO (09:24)
[2024-04-17] MEDS: lamoTRIgine 100MG TABLET 150 MG PO (09:24)
--- NOTE | 2024-04-17 09:30 | HMH.OTEV ---
OT Inpatient Evaluation Rehab OT IP Evaluation Start: 04/17/24 08:20 Freq: ONCE Status: Active Protocol: [facility]24 09[facility]Rec: 04/17/24 09:29 [facility] [id number]) Rehab OT IP Assessment Subjective History Pt oriented x 3 on arrival. Pt agreeable to engage in therapy evaluation. Pt aditted on 04/17/24 due to unstable angina. History and Physical: This patient who has had multiple stents long history of cardiovascular disease seeing Dr. Sky, developed heart pain today being on his medication it did not relieve had to start taken sublingual nitroglycerin without relief and has come to the emergency room. When I saw him he listed his pain is 3 of 10 he said he got as high as 6 of 10 . He gave a history of having a stent placed about a month ago he is still a smoker. He noted that his had 3 months ago. She had had a traumatic fracture but and then an illness and ventilated before she tells me he is set up for an appointment on the of this month for grief counseling and he said it was here at the hospital.. Patient noted that he still smokes THC and used to smoke up to 2 packs a day. His other issue is he says he is becoming a little bit unstable walking and keeps bumping into the wall kind of causing small nicks to his arm but denies falling Subjective I don't mind to do it. Prior to being in the hospital , pt lived at home alone. Pt claims normally he is independent with all ADLs and IADLs. He does not require any type of AE during functional transfers. Pt still drives. Objective Patient Orientation Person,Place,Birthday Right Upper Extremity Gross ROM WFL Left Upper Extremity Gross ROM WFL Bed Mobility bed mobility-scooting,bed mobility - supine/sit Assist Level Supervision/Stand by Transfer Training Sit/Stand Transfer Assist Level Supervision/Stand by Lower Body Dressing Ability Standby Assistance Rehab OT IP prob,goals,plan Problems Date of Evaluation: 04/17/24 Rehab Potential Rehab Potential Innapropriate for Skilled Therapy Discharge Plan OT Discharge Plan Pt appears to be at his baseline with functional transfers and ADL independence . Pt can return home once he is medically stable per physician. Eval Complexity Eval Charge Codes 46388 - Low Complexity PHYSICIAN CERTIFICATION: I certify the specified therapy services for Abe We Maharaj JR are required, authorized, and reviewed every 30 days.
--- NOTE | 2024-04-17 09:59 | SW/DCPLANNER ---
Addendum entered by Justina Ortiz 04/17/24 11:40: Outpatient PT has been cancelled due to no need at this time. Original Note: I spoke w/ this patient regarding plans once medically stable for discharge. PT/OT evaluated patient and recommended home health services. I spoke w/ patient this AM regarding home health. Patient stated that he would rather come back to [facility] outpatient PT. Patient stated that he will have transportation back to [facility] for outpatient services. I will continue to follow up w/ patient and MD until medically stable for discharge.
--- NOTE | 2024-04-17 10:04 | HMH.PTEV ---
Physical Therapy Evaluation Rehab PT IP Evaluation Start: 04/17/24 03:27 Freq: ONCE Status: Active Protocol: Document 04/17/24 08:30 PHONAMAN (Rec: 04/17/24 10:04 PHORAUNDREA [id number]) Subjective/History History History 63 yowm adm to [facility] with angina . This patient who has had multiple stents long history of cardiovascular disease seeing Dr. Sky, developed heart pain today being on his medication it did not relieve had to start taken sublingual nitroglycerin without relief. He reports he lives alone, ramp to enter the home, and he is generally independent with all mobility and ADLs at baseline. PMH: Abnormal nuclear cardiac imaging test Angina pectoris Hypertension Hyperlipidemia Abnormal result of cardiovascular function study Tachycardia Unstable angina Dizziness GERD (gastroesophageal reflux disease) Abnormal cardiovascular stress test Typical angina Tobacco dependence syndrome Abnormal EKG CAD (coronary artery disease) Edema Dyspnea Chest pain Subjective Subjective Pt has no current c/o pain, but does report mild dizziness with upright position after laying down. This is his baseline. He agrees to mobility assessment. New diagnosis of cancer in past 12 No months? Rehab PT IP Eval Objective Appearance Patient Behavior Appropriate Patient Orientation Person,Place,Time Difficulty following instructions none Speech Pattern Clear Ambulation Patient Able to Ambulate Yes Ambulation Observation IP General Gait Pattern Observation Wide Based Gait Ambulation Distance (feet) 50 Ambulation Assistive Device None Ambulation Ability Supervision/Stand by Balance Ability to Arise Able, uses arms to help Sitting Balance Steady, safe Standing Balance Steady, wide stance Dynamic Sitting Balance Ability Good Dynamic Standing Balance Ability Good Transfers Bed Transfer Ability Independent Chair Transfer Ability Independent Sit to Stand Bed Transfer Ability Independent Sit to Stand Chair Transfer Ability Independent Rehab PT IP prob,goals,plan Problems Date of Evaluation: 04/17/24 Discharge Plan PT Discharge Plan Pt is currently appropriate to return home once medically stable for d/c. Outpatient therapy for balance training may be appropriate if pt remains unsteady with ambulation. No current inpatient therapy needs. Eval Complexity Eval Charge Codes 50658 - High Complexity PHYSICIAN CERTIFICATION: I certify the specified therapy services for Abe Maharaj JR are required, authorized, and reviewed every 30 days.
--- NOTE | 2024-04-17 10:38 | HMH.PHAINT1 ---
Pharmacy Intervention Comments: MEDICATION RECONCILIATION COMPLETED ON PATIENT USING EXTERNAL FILL HISTORY FROM [facility] AND LIST FROM CARDIOLOGY OFFICE. -PK BENOITD
--- NOTE | 2024-04-17 13:31 | P.DS_ITS ---
General Admission date:: 04/17/24 Discharge date: 04/17/24 HPI HPI HPI: This patient who has had multiple stents long history of cardiovascular disease seeing Dr. Sky, developed heart pain today being on his medication it did not relieve had to start taken sublingual nitroglycerin without relief and has come to the emergency room. When I saw him he listed his pain is 3 of 10 he said he got as high as 6 of 10. He gave a history of having a stent placed about a month ago he is still a smoker. He noted that his had 3 months ago. She had had a traumatic fracture but and then an illness and v entilated before she tells me he is set up for an appointment on the of this month for grief counseling and he said it was here at the hospital.. Patient noted that he still smokes THC and used to smoke up to 2 packs a day. His other issue is he says he is becoming a little bit unstable walking and keeps bumping into the wall kind of causing small nicks to his arm but denies falling Exam Data for Last 24 hours Vital signs and Labs for Last 24 Hours: Temp Pulse Resp BP Pulse Ox O2 Del Method 97.9 F 57 L 17 116/64 98 Room Air 04/17/24 11:51 04/17/24 11:51 04/17/24 11:51 04/17/24 11:51 04/17/24 11:51 04/17/24 13:00 Laboratory Results - last 24 hr 04/16/24 22:00: WBC 9.5, RBC 4.04 L, Hgb 13.7 L, Hct 43.9, MCV 108.7 H, MCH 33.8 H, MCHC 31.1 L, RDW 15.3, Plt Count 372, MPV 8.4, Neut % (Auto) 79.6, Lymph % (Auto) 16.0, [place] % (Auto) 3.2, Eos % (Auto) 0.6, Baso % (Auto) 0.6, Neut # ( Auto) 7.6, Lymph # (Auto) 1.5, [place] # (Auto) 0.3, Eos # (Auto) 0.1, Baso # (Auto) 0.1, Sodium 139, Potassium 3.6, Chloride 110 H, Carbon Dioxide 25, Anion Gap 7.6, BUN 15, Creatinine 1.00, Estimated Creat Clear 76, Estimated GFR 75, Est GFR ( Amer) 91, Glucose 140 H, Calcium 8.9, Total Bilirubin 0.5, AST 34, ALT 39, Alkaline Phosphatase 73, Troponin I < 0.01, Total Protein 6.6, Albumin 3.9, Globulin 2.7, Albumin/Globulin Ratio 1.4 04/17/24 01:15: Troponin I < 0.01 04/17/24 04:30: WBC 7.9, RBC 3.82 L, Hgb 12.7 L, Hct 40.6 L, MCV 106.3 H, MCH 33.3 H, MCHC 31.3 L, RDW 15.4, Plt Count 330, MPV 7.7, Neut % (Auto) 72.4, Lymph % (Auto) 20.1, [place] % (Auto) 4.9, Eos % (Auto) 1.7, Baso % (Auto) 0.9, Neut # (Auto) 5.8, Lymph # (Auto) 1.6, [place] # (Auto) 0.4, Eos # (Auto) 0.1, Baso # (Auto) 0.1, Sodium 138, Potassium 3.8, Chloride 110 H, Carbon Dioxide 27, Anion Gap 4.8 L, BUN 17, Creatinine 1.00, Estimated Creat Clear 76, Estimated GFR 75, Est GFR ( Amer) 91, Glucose 96 D, Calcium 8.5, Magnesium 2.0, Total Bilirubin 0.5, AST 35, ALT 33, Alkaline Phosphatase 64, Troponin I < 0.01, Total Protein 6.0 L, Albumin 3.3 L D, Globulin 2.7, Albumin/Globulin Ratio 1.2 I & O for Last 24 hours: Intake & Output 04/14/24 04/15/24 04/16/24 04/17/24 23:59 23:59 23:59 23:59 Intake Total 480 / 480 Balance 480 / 480 Weight 140.614 kg 137.076 kg Results Data Completed and Pending Labs on day of discharge: Labs from last 24 hours 04/17/24 04/17/24 04/16/24 04:30 01:15 22:00 WBC 7.9 9.5 RBC 3.82 L 4.04 L Hgb 12.7 L 13.7 L Hct 40.6 L 43.9 MCV 106.3 H 108.7 H MCH 33.3 H 33.8 H MCHC 31.3 L 31.1 L RDW 15.4 15.3 Plt Count 330 372 MPV 7.7 8.4 Neut % (Auto) 72.4 79.6 Lymph % (Auto) 20.1 16.0 [place] % (Auto) 4.9 3.2 Eos % (Auto) 1.7 0.6 Baso % (Auto) 0.9 0.6 Neut # (Auto) 5.8 7.6 Lymph # (Auto) 1.6 1.5 [place] # (Auto) 0.4 0.3 Eos # (Auto) 0.1 0.1 Baso # (Auto) 0.1 0.1 Sodium 138 139 Potassium 3.8 3.6 Chloride 110 H 110 H Carbon Dioxide 27 25 Anion Gap 4.8 L 7.6 BUN 17 15 Creatinine 1.00 1.00 Estimated Creat Clear 76 76 Estimated GFR 75 75 Est GFR ( Amer) 91 91 Glucose 96 D 140 H Calcium 8.5 8.9 Magnesium 2.0 Total Bilirubin 0.5 0.5 AST 35 34 ALT 33 39 Alkaline Phosphatase 64 73 Troponin I < 0.01 < 0.01 < 0.01 Total Protein 6.0 L 6.6 Albumin 3.3 L D 3.9 Globulin 2.7 2.7 Albumin/Globulin Ratio 1.2 1.4 DS: Diagnosis Discharge Diagnosis (1) Angina pectoris, unstable: Status: Acute Code(s): I20.0 - Unstable angina (2) Complicated grieving: Status: Acute Code(s): F43.21 - Adjustment disorder with depressed mood (3) Gait instability: Status: Acute Code(s): R26.81 - Unsteadiness on feet Meds Home Medications and Allergies Home Medications ?Medication ?Instructions ?Recorded ?Confirmed ?Type albuterol sulfate 90 mcg/actuation 2 puff inhalation QIDP PRN 10/27/18 04/17/24 History aerosol inhaler Shortness Of Breath 25 days #9 grams budesonide-formoterol HFA 160 2 puff inhalation BIDRT 30 days 10/27/18 04/17/24 History mcg-4.5 mcg/actuation aerosol #10 grams inhaler tamsulosin 0.4 mg capsule 0.4 mg PO HS 90 days #90 caps 10/27/18 04/17/24 History gabapentin 300 mg capsule 300 mg PO TID 90 days #270 caps 10/10/19 04/17/24 History aspirin 81 mg tablet,delayed 81 mg PO DAILY Heart disease #90 10/09/20 04/17/24 Rx release (Adult Low Dose Aspirin) tabs folic acid 1 mg tablet 1 mg PO DAILY 10/26/22 04/17/24 History methotrexate sodium 2.5 mg tablet 20 mg PO FAIR 10/26/22 04/17/24 History spironolactone 50 mg tablet 50 mg PO DAILY 07/06/23 04/17/24 History aripiprazole 20 mg tablet 20 mg PO DAILY 03/12/24 04/17/24 History atorvastatin 80 mg tablet 80 mg PO HS 03/12/24 04/17/24 History furosemide 40 mg tablet 80 mg PO DAILY 03/12/24 04/17/24 History isosorbide mononitrate 60 mg 60 mg PO BID 03/12/24 04/17/24 History tablet,extended release 24 hr nitroglycerin 0.4 mg sublingual 0.4 mg sublingual Q5MINP PRN Chest 03/12/24 04/17/24 History tablet Pain pantoprazole 40 mg tablet,delayed 40 mg PO DAILY 03/12/24 04/17/24 History release potassium chloride 10 mEq 10 meq PO DAILY 03/12/24 04/17/24 History tablet,extended release amlodipine 5 mg tablet 5 mg PO DAILY #30 tabs 03/21/24 04/17/24 Rx metoprolol succinate 100 mg 50 mg PO DAILY 03/22/24 04/17/24 History tablet,extended release 24 hr cholecalciferol (vitamin D3) 125 5,000 unit PO DAILY 04/17/24 04/17/24 History mcg (5,000 unit) tablet (Vitamin D3) clopidogrel 75 mg tablet 75 mg PO DAILY 04/17/24 04/17/24 History dutasteride 0.5 mg capsule 0.5 mg PO DAILY 04/17/24 04/17/24 History lamotrigine 150 mg tablet 150 mg PO BID 04/17/24 04/17/24 History ranolazine 1,000 mg 1,000 mg PO BID 30 days #60 tabs 04/17/24 Rx tablet,extended release,12 hr vit C 250 mg-vit E 90 mg-zinc 40 1 cap PO BID 04/17/24 04/17/24 History mg-copper 1 [id number] capsule (PreserVision AREDS-2) New Prescriptions to Start Prescriptions: ranolazine Owen Lorenz Allergies Allergy/AdvReac Type Severity Reaction Status Date / Time nickel [NICKEL] Allergy Unknown I-RASH Verified 04/05/24 14:33 quetiapine [From SEROQUEL] Allergy Unknown I-RASH Verified 04/05/24 14:33 NSAIDS (Non-Steroidal AdvReac Verified 04/05/24 14:33 Anti-Inflamma Discharge Plan Disposition Patient Disposition: Home, Self-Care Condition: Fair Follow up Plan Follow up with: Dillon Sky MD [Staff Physician] - Enter time for follow up Jennifer Newton APRN [Primary Care Provider] - Enter time for follow up Prescriptions/Medication Reconciliation: Continued amlodipine 5 mg tablet 5 mg PO DAILY Qty: 30 5RF tamsulosin 0.4 mg capsule 0.4 mg PO HS 90 Days Qty: 90 albuterol sulfate 90 mcg/actuation HFA aerosol inhaler 2 puff INHALATION QIDP PRN (Reason: Shortness Of Breath) 25 Days Qty: 9 Patient Comments: INHALE 2 PUFFS BY MOUTH FOUR TIMES DAILY * SHAKE WELL BEFORE USE * budesonide-formoterol 160-4.5 mcg/actuation HFA aerosol inhaler 2 puff INHALATION BIDRT 30 Days Qty: 10 gabapentin 300 mg capsule 300 mg PO TID 90 Days Qty: 270 methotrexate sodium 2.5 mg tablet 20 mg PO FAIR folic acid 1 mg tablet 1 mg PO DAILY Patient Comments: TAKE ONE TABLET BY MOUTH EVERY DAY EXCEPT FOR THE DAY you take methotrexate spironolactone 50 mg tablet 50 mg PO DAILY aspirin [Adult Low Dose Aspirin] 81 mg tablet,delayed release (DR/EC) 81 mg PO DAILY Qty: 90 2RF pantoprazole 40 mg tablet,delayed release (DR/EC) 40 mg PO DAILY furosemide 40 mg tablet 80 mg PO DAILY atorvastatin 80 mg tablet 80 mg PO HS aripiprazole 20 mg tablet 20 mg PO DAILY potassium chloride 10 mEq tablet extended release 10 meq PO DAILY Patient Comments: TAKE ONE TABLET BY MOUTH EVERY DAY isosorbide mononitrate 60 mg tablet extended release 24 hr 60 mg PO BID nitroglycerin 0.4 mg tablet, sublingual 0.4 mg sublingual Q5MINP PRN (Reason: Chest Pain) clopidogrel 75 mg tablet 75 mg PO DAILY Patient Comments: TAKE ONE TABLET BY MOUTH EVERY DAY dutasteride 0.5 mg capsule 0.5 mg PO DAILY Patient Comments: TAKE ONE CAPSULE BY MOUTH EVERY DAY cholecalciferol (vitamin D3) [Vitamin D3] 125 mcg (5,000 unit) Tablet 5,000 unit PO DAILY PreserVision AREDS-2 250-90-40-1 mg Capsule 1 cap PO BID lamotrigine 150 mg tablet 150 mg PO BID Patient Comments: TAKE ONE TABLET BY MOUTH TWICE DAILY ranolazine 1,000 mg tablet extended release 12 hr 1,000 mg PO BID 30 Days Qty: 60 0RF metoprolol succinate 100 mg tablet extended release 24 hr 50 mg PO DAILY Problem Reconciliation Problems Reviewed?: Yes Patient Discharge Instructions ACTIVITY: Continue current activity DIET: continue same diet Patient Instructions: DI for Chest Pain Print Language: Stateless Providers Primary Care Provider: Jennifer Newton Admit Provider: Owen Lorenz Attending Provider: Owen Lorenz
--- NOTE | 2024-04-17 14:27 | P.CONCA_ITS ---
History of Present Illness History of Present Illness Consult date: 04/17/24 Requesting physician: Owen Lorenz Consult reason: chest pain Chief complaint: CP History of present illness: This is a 63-year-old gentleman who presented to the emergency department complaints of chest pain. He has a past medical history of coronary artery disease, hypertension and hyperlipidemia. The patient reports that he had sudde n onset of pain in the substernal aspect of his chest. He describes this as a pressure/tight sensation. It was around a 6 out of 10 in intensity. He states that it was not radiating but it was occurring with exertion and improving with rest. The patient states that because he got to a level of 6 out of 10 he decided to come to the emergency department the patient states that he has been under a lot of stress due to the recent loss of his and has been dealing with a lot of grief. He denies any shortness of breath or edema. He denies any fever, chills, nausea, vomiting, diarrhea, PND orthopnea. Of note, the patient had recent left cardiac catheterization 1 month ago with a stent placed to the PDA. He did have persistent disease to his LAD which is not favorable for percutaneous intervention. [facility] Disclaimer: The information contained in this section may have been updated after the patient was seen, as this information can be updated by other users. Medical History Abnormal nuclear cardiac imaging test Angina pectoris Hypertension Hyperlipidemia Abnormal result of cardiovascular function study Tachycardia Unstable angina Dizziness GERD (gastroesophageal reflux disease) Abnormal cardiovascular stress test Typical angina Tobacco dependence syndrome Abnormal EKG CAD (coronary artery disease) Edema Dyspnea Chest pain Surgical History H/O removal of cyst History of cardiac cath H/O heart artery stent History of coronary artery stent placement Family History Other No significant family history Social History Smoking Status: Current some day smoker tobacco type: cigarettes packs per day: 1 and pipe alcohol intake: current alcohol intake frequency: a few times a month substance use type: former substance user and marijuana counseling given: No (patient refused) counseling provided: none current occupational status: disabled Travel in the last 8 weeks: None household members: children housing: house marital status: group home: No caffeine: Yes physical activity: none Review of Systems Review of Systems Review of systems:: pertinent systems reviewed and negative unless documented below Constitutional Constitutional: Reports system reviewed and no additional complaints, except as documented Eyes Eyes: Reports system reviewed and no additional complaints, except as documented ENT Ears, Nose, Mouth, and Throat: Reports system reviewed and no additional co mplaints, except as documented *Cardiovascular Cardiovascular: Reports system reviewed and no additional complaints, except as documented, Reports chest pain, Reports chest pain at rest and Reports chest pain with activity *Respiratory Respiratory: Reports system reviewed and no additional complaints, except as documented *Gastrointestinal Gastrointestinal: Reports system reviewed and no additional complaints, except as documented *Genitourinary Genitourinary: Reports system reviewed and no additional complaints, except as documented *Musculoskeletal Musculoskeletal: Reports system reviewed and no additional complaints, except as documented Integumentary/Breasts Skin/Breast: Reports system reviewed and no additional complaints, except as documented *Neurologic Neurologic: Reports system reviewed and no additional complaints, except as documented and Reports as per HPI Psychiatric Psychiatric: Reports system reviewed and no additional complaints, except as documented and Reports other (Grief) Endocrine Endocrine: Reports system reviewed and no additional complaints, except as documented Hematologic/Lymphatic Hematologic/Lymphatic: Reports system reviewed and no additional complaints, except as documented Allergic/Immunologic Allergic/Immunologic: Reports system reviewed and no additional complaints, except as documented Exam Data for Last 24 hours Vital signs and Labs for Last 24 Hours: Temp Pulse Resp BP Pulse Ox O2 Del Method 97.9 F 57 L 17 116/64 98 Room Air 04/17/24 11:51 04/17/24 11:51 04/17/24 11:51 04/17/24 11:51 04/17/24 11:51 04/17/24 13:00 Laboratory Results - last 24 hr 04/16/24 22:00: WBC 9.5, RBC 4.04 L, Hgb 13.7 L, Hct 43.9, MCV 108.7 H, MCH 33.8 H, MCHC 31.1 L, RDW 15.3, Plt Count 372, MPV 8.4, Neut % (Auto) 79.6, Lymph % (Auto) 16.0, [place] % (Auto) 3.2, Eos % (Auto) 0.6, Baso % (Auto) 0.6, Neut # (Auto) 7.6, Lymph # (Auto) 1.5, [place] # (Auto) 0.3, Eos # (Auto) 0.1, Baso # (Auto) 0.1, Sodium 139, Potassium 3.6, Chloride 110 H, Carbon Dioxide 25, Anion Gap 7.6, BUN 15, Creatinine 1.00, Estimated Creat Clear 76, Estimated GFR 75, Est GFR ( Amer) 91, Glucose 140 H, Calcium 8.9, Total Bilirubin 0.5, AST 34, ALT 39, Alkaline Phosphatase 73, Troponin I < 0.01, Total Protein 6.6, Albumin 3.9, Globulin 2.7, Albumin/Globulin Ratio 1.4 04/17/24 01:15: Troponin I < 0.01 04/17/24 04:30: WBC 7.9, RBC 3.82 L, Hgb 12.7 L, Hct 40.6 L, MCV 106.3 H, MCH 33.3 H, MCHC 31.3 L, RDW 15.4, Plt Count 330, MPV 7.7, Neut % (Auto) 72.4, Lymph % (Auto) 20.1, [place] % (Auto) 4.9, Eos % (Auto) 1.7, Baso % (Auto) 0.9, Neut # (Auto) 5.8, Lymph # (Auto) 1.6, [place] # (Auto) 0.4, Eos # (Auto) 0.1, Baso # (Auto) 0.1, Sodium 138, Potassium 3.8, Chloride 110 H, Carbon Dioxide 27, Anion Gap 4.8 L, BUN 17, Creatinine 1.00, Estimated Creat Clear 76, Estimated GFR 75, Est GFR ( Amer) 91, Glucose 96 D, Calcium 8.5, Magnesium 2.0, Total Bilirubin 0.5, AST 35, ALT 33, Alkaline Phosphatase 64, Troponin I < 0.01, Total Protein 6.0 L, Albumin 3.3 L D, Globulin 2.7, Albumin/Globulin Ratio 1.2 I & O for Last 24 hours: Intake & Output 04/14/24 04/15/24 04/16/24 04/17/24 23:59 23:59 23:59 23:59 Intake Total 480 / 480 Balance 480 / 480 Weight 310 lb 302 lb 3.213 oz Constitutional Constitutional: no acute distress and morbidly obese *Routine HEENT Exam Head: Present normocephalic and atraumatic ENT: Present mucous membranes moist *Routine Neck Exam Neck: Present supple, full ROM and normal carotid upstroke; Absent JVD, carotid bruit or lymphadenopathy *Routine Respiratory Exam Respiratory: Present CTA bilaterally, normal respiratory effort, able to speak in complete sentences and symmetric chest movement *Routine Cardiovascular Exam Cardiovascular: Present RRR, Normal S1 and Normal S2; Absent murmur or gallop *Routine Abdominal Exam Abdominal: Present soft and normoactive bowel sounds; Absent tenderness, distended or organomegaly *Routine Extremities Exam Extremities: Present full ROM, pulses intact and normal capillary refill; Absent cyanosis, clubbing or edema *Routine Skin Exam Skin: Present intact and warm; Absent erythema *Routine Neurological Exam Neurological: Present alert, oriented X3 and CN II-XII intact; Absent sensory deficit or motor deficit Routine Psychiatric Exam Psychiatric: Present normal affect Meds Home Medications and Allergies Home Medications ?Medication ?Instructions ?Recorded ?Confirmed ?Type albuterol sulfate 90 mcg/actuation 2 puff inhalation QIDP PRN 10/27/18 04/17/24 History aerosol inhaler Shortness Of Breath 25 days #9 grams budesonide-formoterol HFA 160 2 puff inhalation BIDRT 30 days 10/27/18 04/17/24 History mcg-4.5 mcg/actuation aerosol #10 grams inhaler tamsulosin 0.4 mg capsule 0.4 mg PO HS 90 days #90 caps 10/27/18 04/17/24 History gabapentin 300 mg capsule 300 mg PO TID 90 days #270 caps 10/10/19 04/17/24 History aspirin 81 mg tablet,delayed 81 mg PO DAILY Heart disease #90 10/09/20 04/17/24 Rx release (Adult Low Dose Aspirin) tabs folic acid 1 mg tablet 1 mg PO DAILY 10/26/22 04/17/24 History methotrexate sodium 2.5 mg tablet 20 mg PO FAIR 10/26/22 04/17/24 History spironolactone 50 mg tablet 50 mg PO DAILY 07/06/23 04/17/24 History aripiprazole 20 mg tablet 20 mg PO DAILY 03/12/24 04/17/24 History atorvastatin 80 mg tablet 80 mg PO HS 03/12/24 04/17/24 History furosemide 40 mg tablet 80 mg PO DAILY 03/12/24 04/17/24 History isosorbide mononitrate 60 mg 60 mg PO BID 03/12/24 04/17/24 History tablet,extended release 24 hr nitroglycerin 0.4 mg sublingual 0.4 mg sublingual Q5MINP PRN Chest 03/12/24 04/17/24 History tablet Pain pantoprazole 40 mg tablet,delayed 40 mg PO DAILY 03/12/24 04/17/24 History release potassium chloride 10 mEq 10 meq PO DAILY 03/12/24 04/17/24 History tablet,extended release amlodipine 5 mg tablet 5 mg PO DAILY #30 tabs 03/21/24 04/17/24 Rx metoprolol succinate 100 mg 50 mg PO DAILY 03/22/24 04/17/24 History tablet,extended release 24 hr cholecalciferol (vitamin D3) 125 5,000 unit PO DAILY 04/17/24 04/17/24 History mcg (5,000 unit) tablet (Vitamin D3) clopidogrel 75 mg tablet 75 mg PO DAILY 04/17/24 04/17/24 History dutasteride 0.5 mg capsule 0.5 mg PO DAILY 04/17/24 04/17/24 History lamotrigine 150 mg tablet 150 mg PO BID 04/17/24 04/17/24 History ranolazine 1,000 mg 1,000 mg PO BID 30 days #60 tabs 04/17/24 Rx tablet,extended release,12 hr vit C 250 mg-vit E 90 mg-zinc 40 1 cap PO BID 04/17/24 04/17/24 History mg-copper 1 [id number] capsule (PreserVision AREDS-2) New Prescriptions to Start Prescriptions: ranolazine Owen Lorenz Allergies Allergy/AdvReac Type Severity Reaction Status Date / Time nickel [NICKEL] Allergy Unknown I-RASH Verified 04/05/24 14:33 quetiapine [From SEROQUEL] Allergy Unknown I-RASH Verified 04/05/24 14:33 NSAIDS (Non-Steroidal AdvReac Verified 04/05/24 14:33 Anti-Inflamma Assessment and Plan *Assessment and plan (1) Angina pectoris: Status: Chronic Category: Medical Code(s): I20.9 - Angina pectoris, unspecified (2) CAD (coronary artery disease): Status: Chronic Qualifiers: Coronary Disease-Associated Artery/Lesion type: [place] artery [place] vs. transplanted heart: [place] heart Associated angina: with other forms of angina Qualified Code(s): I25.118 - Atherosclerotic heart disease of [place] coronary artery with other forms of angina pectoris Category: Medical Code(s): I25.10 - Atherosclerotic heart disease of [place] coronary artery without angina pectoris (3) HTN (hypertension): Status: Chronic Qualifiers: Hypertension type: essential hypertension Qualified Code(s): I10 - Essential (primary) hypertension Category: Medical Code(s): I10 - Essential (primary) hypertension (4) HLD (hyperlipidemia): Status: Chronic Qualifiers: Hyperlipidemia type: mixed hyperlipidemia Qualified Code(s): E78.2 - Mixed hyperlipidemia Category: Medical Code(s): E78.5 - Hyperlipidemia, unspecified (5) Tobacco dependence syndrome: Status: Chronic Category: Medical Code(s): F17.200 - Nicotine dependence, unspecified, uncomplicated Plan Plan: 1. The patient was admitted to the hospital with chest pain and angina. The patient had a recent left cardiac catheterization with a stent to the PDA and persistent disease to the LAD which is not favorable for percutaneous intervention. He ruled out for an [place]. The patient is likely having class II. We do recommend maximizing his antianginals. 2. Will increase his Ranexa to 1000 mg p.o. twice daily for angina. 3. Continue isosorbide, Toprol and Norvasc for angina. 4. His blood pressure is well-controlled. 5. His LDL goal is less than 55. He is on a statin. 6. Continue aspirin And Plavix for dual antiplatelet therapy. 7. No further recommendations at this time from a cardiac standpoint. The patient is stable for discharge home today from a cardiac standpoint. The patient will need to follow-up in cardiology clinic in 1 to 2 weeks on an outpatient basis. Thank you for the opportunity to help participate in the care of this patient. All recommendations and orders are per Dr. Michelle.
--- NOTE | 2024-04-18 13:44 | CARE MANAGER ---
Spoke with patient for post-discharge phone interview, no new medications noted and patient is aware of follow-up appointments.
== END 2024-04-17 14:33 | disposition home or self-care (01) ==
LOC: ER 23:35 → ICU 04-17 00:07
PROVIDERS: Nurse Practitioner Family; Admitting Provider Internal Medicine Adolescent Medicine; Emergency Provider Emergency Medicine; PCP Nurse Practitioner Family; Visit Provider Internal Medicine Adolescent Medicine
DX: F43.21 Adjustment disorder with depressed mood (principal); R26.81 Unsteadiness on feet; I25.118 Atherosclerotic heart disease of native coronary artery with other forms of angina pectoris; I10 Essential (primary) hypertension; E78.2 Mixed hyperlipidemia; E66.9 Obesity, unspecified; K21.9 Gastro-esophageal reflux disease without esophagitis; Z79.899 Other long term (current) drug therapy; F17.210 Nicotine dependence, cigarettes, uncomplicated; R00.1 Bradycardia, unspecified; F12.90 Cannabis use, unspecified, uncomplicated; Z79.02 Long term (current) use of antithrombotics/antiplatelets; Z95.5 Presence of coronary angioplasty implant and graft; Z68.41 Body mass index [BMI] 40.0-44.9, adult
CPT/HCPCS: 36415; 71045; 80053; 83735; 84484; 85025; 93005; 97163; 97165; 99291; G0378; J2270

== ENCOUNTER 2024-04-24 16:00 | Outpatient (CLI) | payer MEDICARE, SELFPAY | END 2024-04-24 23:59 | disposition home or self-care (01) | LOC: LAB.DROPOF 04-25 09:53 | PROVIDERS: PCP Nurse Practitioner; Visit Provider Nurse Practitioner | DX: M79.671 Pain in right foot (principal); L84 Corns and callosities; R26.81 Unsteadiness on feet; L60.3 Nail dystrophy; R60.0 Localized edema; L57.0 Actinic keratosis; M21.619 Bunion of unspecified foot | CPT/HCPCS: 87102; 87206; 87220 ==

== ENCOUNTER 2024-05-04 10:53 | Outpatient (CLI) | payer MEDICARE, SELFPAY ==
--- NOTE | 2024-05-04 10:56 | CT_ITS ---
FINAL REPORT TECHNIQUE: Axial images through the abdomen and pelvis were performed without contrast. This study was performed with techniques to keep radiation doses as low as reasonably achievable, (ALARA). Individualized dose reduction techniques using automated exposure control or adjustment of mA and/or kV according to the patient's size were employed. CLINICAL HISTORY: RT HIP PAIN FINDINGS: Abdomen: The lung bases are clear. The liver parenchyma is homogeneous. The gallbladder is present. The spleen, pancreas, and kidneys are unremarkable. There are small nodules in the left adrenal gland measuring up to 1.4 cm consistent with benign adenomas. Pelvis: The urinary bladder is incompletely distended. The appendix is normal. There is no pelvic mass or inflammation. There is mild narrowing of the hip joint spaces bilaterally consistent with osteoarthritis. There is no acute bony abnormality. IMPRESSION: Osteoarthritis of the hips bilaterally. If symptoms persist, consider MRI. Reviewed, Interpreted and Dictated by Quincy Tate MD Transcribed by Delmy Clark Authenticated and . [facility]
== END 2024-05-04 23:59 | disposition home or self-care (01) ==
LOC: RAD 10:53
PROVIDERS: PCP Internal Medicine Adolescent Medicine; Visit Provider Internal Medicine Adolescent Medicine
DX: M25.551 Pain in right hip (principal); M24.051 Loose body in right hip; R93.89 Abnormal findings on diagnostic imaging of other specified body structures
CPT/HCPCS: 74176

== ENCOUNTER 2024-06-20 14:12 | Outpatient (CLI) | payer MEDICARE, SELFPAY ==
--- NOTE | 2024-06-20 14:16 | XR_ITS ---
FINAL REPORT CLINICAL HISTORY: right hip pain COMPARISON: None FINDINGS: RIGHT HIP Two views of the right hip, with an AP view of the pelvis, demonstrate no acute fracture or dislocation. The joint spaces are preserved. The femoral heads have normal smooth contours. The visualized bony structures are well aligned. No soft tissue abnormality is seen. IMPRESSION: No acute bony abnormality. Reviewed, Interpreted and Dictated by Quincy Tate MD Transcribed by Imani Voss Authenticated and [facility]
== END 2024-06-20 23:59 | disposition home or self-care (01) ==
LOC: RAD 14:13
PROVIDERS: PCP Nurse Practitioner Family; Visit Provider Physician Assistant Surgical
DX: M25.551 Pain in right hip (principal)
CPT/HCPCS: 73502

== ENCOUNTER 2024-07-12 21:04 | Observation (INO) | payer MEDICARE, SELFPAY ==
[2024-07-12] VITALS (8 sets, daily range): BP systolic 132–167; BP diastolic 67–88; PULSE 85–104; RESP 15–27; TEMP 36.7; O2SAT 92–98; BMI 45.0
--- NOTE | 2024-07-12 20:59 | ECG_ITS ---
APPROVED REPORT Exam: Resting ECG HR:99 bpm ECG Measurements Heart Rate 99 AXES TX 185 P 83 QRSd 118 QRS -60 QT 329 T 69 QTc 386 Conclusion SINUS RHYTHM LEFT ANTERIOR FASCICULAR BLOCK [QRS AXIS <= -45, QR IN I, RS IN II] ABNORMAL ECG UNCONFIRMED REPORT Electronically signed by : CLAUDETTE MARTINEZ, 07/13/2024 06:27:19
[2024-07-12] MEDS: IPRATROPIUM/ALBUTEROL 3 ML NEB 9 ML IH (21:05)
--- NOTE | 2024-07-12 21:17 | HMH.EDGENADL ---
Discharge Plan Disposition Patient Disposition: Admitted Condition: Good Chief Complaint: Chest Pain Clinical Impressions Clinical Impression: Acute exacerbation of chronic obstructive pulmonary disease, Acute respiratory failure with hypoxia Discharge ED Provider: Dandy Stark General Adult HPI <Wilder Pozo MD - Last Filed: 07/12/24 23:53> General Chief complaint: Chest Pain Stated complaint: chest pain/SOA Time Seen by Provider: 07/12/24 21:16 Mode of Arrival: Ambulatory Source of Information: Patient Limitations: No Limitations Description of Symptoms (Recalled from ER Triage Doc. by RN): Patient reports left sided chest pain with SOA. Has COPD. Says it is a stabbing pain with no radiation. Rates pain as 4/10. Has had 10 stents in the past History of Present Illness HPI narrative: Patient presents for evaluation of left-sided pleuritic chest pain, shortness of air, gradual in onset starting over the past week, constant, worsening over the past 24 hours. Patient was evaluated PCP office he reports, prescribed doxycycline and a course of steroids which he picked up yesterday. He has received a total of 3 doses. No fevers or chills. Preceding symptoms include upper respiratory infections symptoms such as cough, congestion. He describes chronic bilateral lower leg pain and swelling. However no recent travel. No known sick contacts. No hemoptysis. No supplemental oxygen requirement baseline. Patient does have history of CHF. He takes Lasix daily with no medication changes Please note that above description of symptoms, in this electronic medical record under categorization of recalled from ER triage doctor by RN are reflective of an initial nursing assessment, however, is not reflective of my full history and physical exam that was personally taken and clarified. Consequentially, this preceding description of symptoms, which may include the patient's categorized chief complaint in the EMR, do not reflect my personal clinical impression, and the ultimate description of history of present illness and patient stated complaints should be deferred to this section of the note. Unless stated otherwise or congruent with this section of the note, additional signs, symptoms, or incongruence should be interpreted as inaccurate with my clinical impression. Related Data Home Medications ?Medication ?Instructions ?Recorded ?Confirmed albuterol sulfate 90 mcg/actuation 2 puff inhalation QIDP PRN 10/27/18 06/26/24 aerosol inhaler Shortness Of Breath 25 days #9 grams budesonide-formoterol HFA 160 2 puff inhalation BIDRT 30 days 10/27/18 06/26/24 mcg-4.5 mcg/actuation aerosol #10 grams inhaler tamsulosin 0.4 mg capsule 0.4 mg PO HS 90 days #90 caps 10/27/18 06/26/24 gabapentin 300 mg capsule 300 mg PO TID 90 days #270 caps 10/10/19 06/26/24 folic acid 1 mg tablet 1 mg PO DAILY 10/26/22 06/26/24 methotrexate sodium 2.5 mg tablet 20 mg PO FAIR 10/26/22 06/26/24 aripiprazole 20 mg tablet 20 mg PO DAILY 03/12/24 06/26/24 atorvastatin 80 mg tablet 80 mg PO HS 03/12/24 06/26/24 nitroglycerin 0.4 mg sublingual 0.4 mg sublingual Q5MINP PRN Chest 03/12/24 06/26/24 tablet Pain pantoprazole 40 mg tablet,delayed 40 mg PO DAILY 03/12/24 06/26/24 release potassium chloride 10 mEq 10 meq PO DAILY 03/12/24 06/26/24 tablet,extended release cholecalciferol (vitamin D3) 125 5,000 unit PO DAILY 04/17/24 06/26/24 mcg (5,000 unit) tablet (Vitamin D3) clopidogrel 75 mg tablet 75 mg PO DAILY 04/17/24 06/26/24 dutasteride 0.5 mg capsule 0.5 mg PO DAILY 04/17/24 06/26/24 lamotrigine 150 mg tablet 150 mg PO BID 04/17/24 06/26/24 vit C 250 mg-vit E 90 mg-zinc 40 1 cap PO BID 04/17/24 06/26/24 mg-copper 1 [id number] capsule (PreserVision AREDS-2) Previous Rx's ?Medication ?Instructions ?Recorded aspirin 81 mg tablet,delayed 81 mg PO DAILY Heart disease #90 10/09/20 release (Adult Low Dose Aspirin) tabs ranolazine 1,000 mg 1,000 mg PO BID 30 days #60 tabs 04/17/24 tablet,extended release,12 hr amlodipine 10 mg tablet (Norvasc) 10 mg PO DAILY #30 tabs 05/03/24 metoprolol succinate 100 mg 100 mg PO DAILY #30 tabs 05/03/24 tablet,extended release 24 hr brexpiprazole 1 mg tablet (Rexulti) 1 mg PO DAILY #30 tabs 05/05/24 methocarbamol 500 mg tablet 500 mg PO Q8H PRN muscle spasm #60 05/23/24 tabs methylprednisolone 4 mg tablets in See Rx Instructions PO PER PKG DIR 05/23/24 a dose pack (Medrol (Moisés)) #21 tabs spironolactone 50 mg tablet 50 mg PO DAILY #90 tabs 06/16/24 furosemide 40 mg tablet See Rx Instructions .Route 06/26/24 .COMPLEX #180 tabs isosorbide mononitrate 60 mg See Rx Instructions .Route 06/26/24 tablet,extended release 24 hr .COMPLEX #180 tabs Allergies Allergy/AdvReac Type Severity Reaction Status Date / Time nickel (NICKEL) Allergy Unknown I-RASH Verified 06/26/24 14:34 quetiapine (From SEROQUEL) Allergy Unknown I-RASH Verified 06/26/24 14:34 NSAIDS (Non-Steroidal AdvReac Verified 06/26/24 14:34 Anti-Inflamma PFS <Wilder Pozo MD - Last Filed: 07/12/24 23:53> [facility] Disclaimer: The information contained in this section may have been updated after the patient was seen, as this information can be updated by other users. Medical History (Updated 07/13/24 @ 01:49 by Dandy Stark MD) CHF (congestive heart failure) COPD exacerbation COPD (chronic obstructive pulmonary disease) Major depressive disorder Callus Abnormal nuclear cardiac imaging test Angina pectoris Hypertension Hyperlipidemia Abnormal result of cardiovascular function study Tachycardia Unstable angina Dizziness GERD (gastroesophageal reflux disease) Abnormal cardiovascular stress test Typical angina Tobacco dependence syndrome Abnormal EKG CAD (coronary artery disease) Edema Dyspnea Chest pain Surgical History H/O removal of cyst History of cardiac cath H/O heart artery stent History of coronary artery stent placement Family History Other No significant family history Social History (Updated 06/26/24 @ 15:55 by Radha Fisher APRN) Smoking Status: Current every day smoker tobacco type: cigarettes packs per day: 1 and pipe alcohol intake: current alcohol intake frequency: a few times a month substance use type: former substance user and marijuana counseling given: No (patient refused) counseling provided: none current occupational status: disabled Travel in the last 8 weeks: None household members: children housing: house marital status: usp: No caffeine: Yes physical activity: none Other Medical History Have you received the Flu Vaccine for this season: No Have you received the Pneumonia Vaccine: No <Wilder Pozo MD - Last Filed: 07/12/24 23:53> ROS Obtained: Yes other As per HPI Physical Exam <Wilder Pozo MD - Last Filed: 07/12/24 23:53> General General appearance: alert and in no apparent distress Head Head exam: atraumatic and normocephalic Eye Eye exam: Present normal appearance Neck Neck exam: Present normal inspection Chest Chest inspection: Present normal inspection and symmetric chest wall rise Respiratory Respiratory exam: Present normal lung sounds bilaterally; Absent respiratory distress Cardiovascular Cardiovascular exam: Present regular rate and normal rhythm Abdominal Exam Abdominal exam: Present soft Neurological Exam Neurological exam: Present alert and oriented X3 Psychiatric Psychiatric exam: Present normal affect and normal mood Skin Skin exam: Present warm and dry Other Other exam information: Bilateral end expiratory wheezes. Medical Decision Making <Wilder Pozo MD - Last Filed: 07/12/24 23:53> Medical Records Medical records reviewed: Yes I reviewed the patient's medical records. Screening: Per USPSTF and CDC recommendations, given the prevalence of disease in our region, it is our hospital?s policy to screen for HIV and viral Hepatitis for all patients aged 18 and over and those with ongoing risk factors. Tk Inquiry Pt receiving controlled substance: No Vital Signs: 07/12/24 21:04 07/12/24 21:05 07/12/24 21:05 Temperature 98.1 F Temperature Source Oral Pulse Rate 99 H Pulse Rate [Right Radial] 104 H Respiratory Rate 18 Blood Pressure Blood Pressure [Right Arm] 167/88 H Blood Pressure Mean Blood Pressure Mean [Right Arm] 114 Blood Pressure Source [Right Arm] Automatic Cuff Blood Pressure Position [Right Arm] Supine 02 Sat by Pulse Oximetry 98 92 L Oxygen Delivery Method Nasal Cannula Nasal Cannula Oxygen Flow Rate (LPM) 4 2 07/12/24 21:05 07/12/24 21:11 07/12/24 22:01 Temperature Temperature Source Pulse Rate 102 H 95 H 85 Pulse Rate [Right Radial] Respiratory Rate 15 17 Blood Pressure 167/88 H 132/70 Blood Pressure [Right Arm] Blood Pressure Mean 98 90 Blood Pressure Mean [Right Arm] Blood Pressure Source [Right Arm] Blood Pressure Position [Right Arm] 02 Sat by Pulse Oximetry 95 92 L Oxygen Delivery Method Oxygen Flow Rate (LPM) 07/12/24 22:31 07/12/24 22:37 07/12/24 22:37 Temperature Temperature Source Pulse Rate 91 H 98 H Pulse Rate [Right Radial] Respiratory Rate 23 Blood Pressure 139/67 Blood Pressure [Right Arm] Blood Pressure Mean 91 Blood Pressure Mean [Right Arm] Blood Pressure Source [Right Arm] Blood Pressure Position [Right Arm] 02 Sat by Pulse Oximetry 93 L 97 Oxygen Delivery Method Nasal Cannula Oxygen Flow Rate (LPM) 2 07/12/24 22:37 07/12/24 23:01 07/12/24 23:31 Temperature Temperature Source Pulse Rate 86 88 92 H Pulse Rate [Right Radial] Respiratory Rate 27 H 26 H Blood Pressure 139/77 140/69 Blood Pressure [Right Arm] Blood Pressure Mean 86 92 Blood Pressure Mean [Right Arm] Blood Pressure Source [Right Arm] Blood Pressure Position [Right Arm] 02 Sat by Pulse Oximetry 93 L 94 L Oxygen Delivery Method Oxygen Flow Rate (LPM) Lab Data Lab Results 07/12/24 21:00: SARS-CoV-2 (PCR) Not detected, Influenza A Untype (PCR) Not detected, Influenza Type B (PCR) Not detected 07/12/24 21:06: WBC 11.3 H, RBC 3.87 L, Hgb 13.7 L, Hct 41.2 L, MCV 106.6 H, MCH 35.5 H, MCHC 33.3, RDW 14.5, Plt Count 344, MPV 7.5, Neut % (Auto) 81.1 H, Lymph % (Auto) 9.9 L, Jasper % (Auto) 8.3, Eos % (Auto) 0.1, Baso % (Auto) 0.6, Neut # (Auto) 9.1 H, Lymph # (Auto) 1.1, Jasper # (Auto) 0.9, Eos # (Auto) 0.0, Baso # (Auto) 0.1, PT 10.1, INR 0.89 L, Sodium 136, Potassium 3.7, Chloride 108 H, Carbon Dioxide 26, Anion Gap 5.7, BUN 18, Creatinine 1.00, Estimated Creat Clear 75, Estimated GFR 75, Est GFR ( Amer) 90, Glucose 129 H, Calcium 9.4, Magnesium 1.9, Total Bilirubin 0.4, AST 46, ALT 36, Alkaline Phosphatase 93, Troponin I 0.01, Total Protein 7.0, Albumin 4.1, Globulin 2.9, Albumin/Globulin Ratio 1.4, Procalcitonin 0.063, HIV 1&2 Antibody Rapid Nonreactive 07/12/24 21:20: VBG pH 7.36, VBG pCO2 43.3, VBG pO2 59.1 H, VBG HCO3 24.1, VBG Total CO2 25.4, VBG O2 Saturation 88.3 H, VBG Base Excess -1.3, VBG Lactic Acid 2.8 H 07/12/24 21:06 07/12/24 21:06 Orders (Tests/Meds): ED MEDICATIONS Discontinued Medications Generic Name Dose Route Start Last Admin Trade Name Freq PRN Reason Stop Dose Admin Albuterol/Ipratropium 3 ml 07/12/24 22:19 07/12/24 22:37 Ipratropium/Albuterol 3 Ml Neb 07/12/24 22:20 3 ml ONCE ONE Administration Albuterol/Ipratropium 9 ml 07/12/24 21:10 07/12/24 21:05 Ipratropium/Albuterol 3 Ml Neb 07/12/24 21:11 9 ml ONCE ONE Administration Magnesium Sulfate 2 gm in 50 mls @ 50 mls/hr 07/12/24 23:15 07/12/24 23:20 Magnesium Sulfate 2gm/50ml Premix IV 07/13/24 00:14 50 mls/hr ONCE ONE Administration Iopamidol 80 ml 07/12/24 22:10 07/12/24 22:11 Iopamidol-370 (76%);100ml Bottle IV 07/12/24 22:11 80 ml ONCE ONE Administration Methylprednisolone Sodium Succinate 80 mg 07/12/24 22:19 07/12/24 22:38 Methylprednisolone Sod Succ 125mg Vial IV 07/12/24 22:20 80 mg ONCE ONE Administration Sodium Chloride 10 ml 07/12/24 22:10 07/12/24 22:11 Sodium Chloride 0.9% 10ml Syr (Rad Only) IV 07/12/24 22:11 10 ml ONCE ONE Administration Sodium Chloride 50 ml 07/12/24 22:10 07/12/24 22:11 0.9 % Sodium Chloride 50 Ml Vial IV 07/12/24 22:11 50 ml ONCE ONE Administration ORDERS Category Date Time Status CTA Chest [CT angio chest PE protocol] Stat Cat Scan 07/12/24 21:31 Completed CBC w/Auto Diff [Complete Blood Count Auto Diff] Stat Lab 07/12/24 21:06 Completed CMP [Comprehensive Metabolic Panel] Stat Lab 07/12/24 21:06 Completed HIV (1&2) Antibody Rapid Stat Lab 07/12/24 21:06 Completed Hep C Ab with Reflex to RNA Stat Lab 07/12/24 21:06 Received Lactate Venous Stat Lab 07/12/24 21:19 Ordered MAG [Magnesium] Stat Lab 07/12/24 21:06 Completed PT INR [Prothrombin Time INR] Stat Lab 07/12/24 21:06 Completed Procalcitonin Stat Lab 07/12/24 21:06 Completed Rapid PCR Covid and Flu A/B Stat Lab 07/12/24 21:00 Completed Troponin I Q3H Lab 07/12/24 21:06 Completed Troponin I Q3H Lab 07/13/24 00:36 Completed VBG [Venous Blood Gas] Stat RT 07/12/24 21:20 Completed Medical Decision Narrative: Patient with history and exam per above presenting for evaluation of shortness of breath Diagnoses considered include ACS, PE, COPD exacerbation, CHF exacerbation ED workup and treatment included: ED MEDICATIONS Generic Name Dose Route Start Last Admin Trade Name Freq PRN Reason Stop Dose Admin Magnesium Sulfate 2 gm in 50 mls @ 50 mls/hr 07/12/24 23:15 07/12/24 23:20 Magnesium Sulfate 2gm/50ml Premix IV 07/13/24 00:14 50 mls/hr ONCE ONE Administration Discontinued Medications Generic Name Dose Route Start Last Admin Trade Name Freq PRN Reason Stop Dose Admin Albuterol/Ipratropium 3 ml 07/12/24 22:19 07/12/24 22:37 Ipratropium/Albuterol 3 Ml Neb IH 07/12/24 22:20 3 ml ONCE ONE Administration Albuterol/Ipratropium 9 ml 07/12/24 21:10 07/12/24 21:05 Ipratropium/Albuterol 3 Ml Neb IH 07/12/24 21:11 9 ml ONCE ONE Administration Iopamidol 80 ml 07/12/24 22:10 07/12/24 22:11 Iopamidol-370 (76%);100ml Bottle IV 07/12/24 22:11 80 ml ONCE ONE Administration Methylprednisolone Sodium Succinate 80 mg 07/12/24 22:19 07/12/24 22:38 Methylprednisolone Sod Succ 125mg Vial IV 07/12/24 22:20 80 mg ONCE ONE Administration Sodium Chloride 10 ml 07/12/24 22:10 07/12/24 22:11 Sodium Chloride 0.9% 10ml Syr (Rad Only) IV 07/12/24 22:11 10 ml ONCE ONE Administration Sodium Chloride 50 ml 07/12/24 22:10 07/12/24 22:11 0.9 % Sodium Chloride 50 Ml Vial IV 07/12/24 22:11 50 ml ONCE ONE Administration ORDERS Category Date Time Status CTA Chest [CT angio chest PE protocol] Stat Cat Scan 07/12/24 21:31 Taken CBC w/Auto Diff [Complete Blood Count Auto Diff] Stat Lab 07/12/24 21:06 Completed CMP [Comprehensive Metabolic Panel] Stat Lab 07/12/24 21:06 Completed HIV (1&2) Antibody Rapid Stat Lab 07/12/24 21:06 Completed Hep C Ab with Reflex to RNA Stat Lab 07/12/24 21:06 Received Lactate Venous Stat Lab 07/12/24 21:19 Ordered MAG [Magnesium] Stat Lab 07/12/24 21:06 Completed PT INR [Prothrombin Time INR] Stat Lab 07/12/24 21:06 Completed Procalcitonin Stat Lab 07/12/24 21:06 Completed Rapid PCR Covid and Flu A/B Stat Lab 07/12/24 21:00 Completed Troponin I Q3H Lab 07/12/24 21:06 Completed Troponin I Q3H Lab 07/13/24 00:45 Ordered VBG [Venous Blood Gas] Stat RT 07/12/24 21:20 Completed Labs were independently interpreted by me, significant for leukocytosis, COVID and flu not detected. Other labs pending at this time Imaging pending at this time. Care was transferred to incoming physician. <Dandy Stark MD - Last Filed: 07/13/24 01:49> Vital Signs: 07/12/24 21:04 07/12/24 21:05 07/12/24 21:05 Temperature 98.1 F Temperature Source Oral Pulse Rate 99 H Pulse Rate [Right Radial] 104 H Respiratory Rate 18 Blood Pressure Blood Pressure [Right Arm] 167/88 H Blood Pressure Mean Blood Pressure Mean [Right Arm] 114 Blood Pressure Source [Right Arm] Automatic Cuff Blood Pressure Position [Right Arm] Supine 02 Sat by Pulse Oximetry 98 92 L Oxygen Delivery Method Nasal Cannula Nasal Cannula Oxygen Flow Rate (LPM) 4 2 07/12/24 21:05 07/12/24 21:11 07/12/24 22:01 Temperature Temperature Source Pulse Rate 102 H 95 H 85 Pulse Rate [Right Radial] Respiratory Rate 15 17 Blood Pressure 167/88 H 132/70 Blood Pressure [Right Arm] Blood Pressure Mean 98 90 Blood Pressure Mean [Right Arm] Blood Pressure Source [Right Arm] Blood Pressure Position [Right Arm] 02 Sat by Pulse Oximetry 95 92 L Oxygen Delivery Method Oxygen Flow Rate (LPM) 07/12/24 22:31 07/12/24 22:37 07/12/24 22:37 Temperature Temperature Source Pulse Rate 91 H 98 H Pulse Rate [Right Radial] Respiratory Rate 23 Blood Pressure 139/67 Blood Pressure [Right Arm] Blood Pressure Mean 91 Blood Pressure Mean [Right Arm] Blood Pressure Source [Right Arm] Blood Pressure Position [Right Arm] 02 Sat by Pulse Oximetry 93 L 97 Oxygen Delivery Method Nasal Cannula Oxygen Flow Rate (LPM) 2 07/12/24 22:37 07/12/24 23:01 07/12/24 23:31 Temperature Temperature Source Pulse Rate 86 88 92 H Pulse Rate [Right Radial] Respiratory Rate 27 H 26 H Blood Pressure 139/77 140/69 Blood Pressure [Right Arm] Blood Pressure Mean 86 92 Blood Pressure Mean [Right Arm] Blood Pressure Source [Right Arm] Blood Pressure Position [Right Arm] 02 Sat by Pulse Oximetry 93 L 94 L Oxygen Delivery Method Oxygen Flow Rate (LPM) Lab Data Lab Results 07/12/24 21:00: SARS-CoV-2 (PCR) Not detected, Influenza A Untype (PCR) Not detected, Influenza Type B (PCR) Not detected 07/12/24 21:06: WBC 11.3 H, RBC 3.87 L, Hgb 13.7 L, Hct 41.2 L, MCV 106.6 H, MCH 35.5 H, MCHC 33.3, RDW 14.5, Plt Count 344, MPV 7.5, Neut % (Auto) 81.1 H, Lymph % (Auto) 9.9 L, [place]asper % (Auto) 8.3, Eos % (Auto) 0.1, Baso % (Auto) 0.6, Neut # (Auto) 9.1 H, Lymph # (Auto) 1.1, Jasper # (Auto) 0.9, Eos # (Auto) 0.0, Baso # (Auto) 0.1, PT 10.1, INR 0.89 L, Sodium 136, Potassium 3.7, Chloride 108 H, Carbon Dioxide 26, Anion Gap 5.7, BUN 18, Creatinine 1.00, Estimated Creat Clear 75, Estimated GFR 75, Est GFR ( Amer) 90, Glucose 129 H, Calcium 9.4, Magnesium 1.9, Total Bilirubin 0.4, AST 46, ALT 36, Alkaline Phosphatase 93, Troponin I 0.01, Total Protein 7.0, Albumin 4.1, Globulin 2.9, Albumin/Globulin Ratio 1.4, Procalcitonin 0.063, HIV 1&2 Antibody Rapid Nonreactive 07/12/24 21:20: VBG pH 7.36, VBG pCO2 43.3, VBG pO2 59.1 H, VBG HCO3 24.1, VBG Total CO2 25.4, VBG O2 Saturation 88.3 H, VBG Base Excess -1.3, VBG Lactic Acid 2.8 H Orders (Tests/Meds): ED MEDICATIONS Discontinued Medications Generic Name Dose Route Start Last Admin Trade Name Freq PRN Reason Stop Dose Admin Albuterol/Ipratropium 3 ml 07/12/24 22:19 07/12/24 22:37 Ipratropium/Albuterol 3 Ml [facility] 07/12/24 22:20 3 ml ONCE ONE Administration Albuterol/Ipratropium 9 ml 07/12/24 21:10 07/12/24 21:05 Ipratropium/Albuterol 3 Ml [facility] 07/12/24 21:11 9 ml ONCE ONE Administration Magnesium Sulfate 2 gm in 50 mls @ 50 mls/hr 07/12/24 23:15 07/12/24 23:20 Magnesium Sulfate 2gm/50ml Premix IV 07/13/24 00:14 50 mls/hr ONCE ONE Administration Iopamidol 80 ml 07/12/24 22:10 07/12/24 22:11 Iopamidol-370 (76%);100ml Bottle IV 07/12/24 22:11 80 ml ONCE ONE Administration Methylprednisolone Sodium Succinate 80 mg 07/12/24 22:19 07/12/24 22:38 Methylprednisolone Sod Succ 125mg Vial IV 07/12/24 22:20 80 mg ONCE ONE Administration Sodium Chloride 10 ml 07/12/24 22:10 07/12/24 22:11 Sodium Chloride 0.9% 10ml Syr (Rad Only) IV 07/12/24 22:11 10 ml ONCE ONE Administration Sodium Chloride 50 ml 07/12/24 22:10 07/12/24 22:11 0.9 % Sodium Chloride 50 Ml Vial IV 07/12/24 22:11 50 ml ONCE ONE Administration ORDERS Category Date Time Status CTA Chest [CT angio chest PE protocol] Stat Cat Scan 07/12/24 21:31 Completed CBC w/Auto Diff [Complete Blood Count Auto Diff] Stat Lab 07/12/24 21:06 Completed CMP [Comprehensive Metabolic Panel] Stat Lab 07/12/24 21:06 Completed HIV (1&2) Antibody Rapid Stat Lab 07/12/24 21:06 Completed Hep C Ab with Reflex to RNA Stat Lab 07/12/24 21:06 Received Lactate Venous Stat Lab 07/12/24 21:19 Ordered MAG [Magnesium] Stat Lab 07/12/24 21:06 Completed PT INR [Prothrombin Time INR] Stat Lab 07/12/24 21:06 Completed Procalcitonin Stat Lab 07/12/24 21:06 Completed Rapid PCR Covid and Flu A/B Stat Lab 07/12/24 21:00 Completed Troponin I Q3H Lab 07/12/24 21:06 Completed Troponin I Q3H Lab 07/13/24 00:36 Completed VBG [Venous Blood Gas] Stat RT 07/12/24 21:20 Completed Medical Decision Narrative: Patient with history and exam per above presenting for evaluation of shortness of breath Diagnoses considered include ACS, PE, COPD exacerbation, CHF exacerbation ED workup and treatment included: ED MEDICATIONS Generic Name Dose Route Start Last Admin Trade Name Freq PRN Reason Stop Dose Admin Magnesium Sulfate 2 gm in 50 mls @ 50 mls/hr 07/12/24 23:15 07/12/24 23:20 Magnesium Sulfate 2gm/50ml Premix IV 07/13/24 00:14 50 mls/hr ONCE ONE Administration Discontinued Medications Generic Name Dose Route Start Last Admin Trade Name Agnes PRN Reason Stop Dose Admin Albuterol/Ipratropium 3 ml 07/12/24 22:19 07/12/24 22:37 Ipratropium/Albuterol 3 Ml [facility] 07/12/24 22:20 3 ml ONCE ONE Administration Albuterol/Ipratropium 9 ml 07/12/24 21:10 07/12/24 21:05 Ipratropium/Albuterol 3 Ml [facility] 07/12/24 21:11 9 ml ONCE ONE Administration Iopamidol 80 ml 07/12/24 22:10 07/12/24 22:11 Iopamidol-370 (76%);100ml Bottle IV 07/12/24 22:11 80 ml ONCE ONE Administration Methylprednisolone Sodium Succinate 80 mg 07/12/24 22:19 07/12/24 22:38 Methylprednisolone Sod Succ 125mg Vial IV 07/12/24 22:20 80 mg ONCE ONE Administration Sodium Chloride 10 ml 07/12/24 22:10 07/12/24 22:11 Sodium Chloride 0.9% 10ml Syr (Rad Only) IV 07/12/24 22:11 10 ml ONCE ONE Administration Sodium Chloride 50 ml 07/12/24 22:10 07/12/24 22:11 0.9 % Sodium Chloride 50 Ml Vial IV 07/12/24 22:11 50 ml ONCE ONE Administration ORDERS Category Date Time Status CTA Chest [CT angio chest PE protocol] Stat Cat Scan 07/12/24 21:31 Taken CBC w/Auto Diff [Complete Blood Count Auto Diff] Stat Lab 07/12/24 21:06 Completed CMP [Comprehensive Metabolic Panel] Stat Lab 07/12/24 21:06 Completed HIV (1&2) Antibody Rapid Stat Lab 07/12/24 21:06 Completed Hep C Ab with Reflex to RNA Stat Lab 07/12/24 21:06 Received Lactate Venous Stat Lab 07/12/24 21:19 Ordered MAG [Magnesium] Stat Lab 07/12/24 21:06 Completed PT INR [Prothrombin Time INR] Stat Lab 07/12/24 21:06 Completed Procalcitonin Stat Lab 07/12/24 21:06 Completed Rapid PCR Covid and Flu A/B Stat Lab 07/12/24 21:00 Completed Troponin I Q3H Lab 07/12/24 21:06 Completed Troponin I Q3H Lab 07/13/24 00:45 Ordered VBG [Venous Blood Gas] Stat RT 07/12/24 21:20 Completed Labs were independently interpreted by me, significant for leukocytosis, COVID and flu not detected. Other labs pending at this time Imaging pending at this time. Care was transferred to incoming physician. [place] UNGER: I assumed care of the patient at the time of handoff from the prior provider. On reassessment patient is still wheezing. Administered 2 g of IV magnesium with some improvement. Continues to be hypoxic requiring 2 L nasal cannula. Interactive discussion was had with the patient and with hospitalist on-call for admission for COPD exacerbation. Patient was admitted prior to antibiotic administration. Critical Care <Wilder Pozo MD - Last Filed: 07/12/24 23:53> Critical Care Time Critical Care Time: No <Dandy Stark MD - Last Filed: 07/13/24 01:49> Critical Care Time Critical Care Time: Yes Attestation: On 07/12/24, the high probability of a clinically significant, sudden or life threatening deterioration of the following system(s) respiratory required my full and direct attention, intervention and personal management. The time I documented below is in addition to time spent performing reported procedures but includes the following listed in this critical care notation. Total Time Total Critical Care Time: 35
--- NOTE | 2024-07-12 21:31 | CT_ITS ---
PROCEDURE INFORMATION: Exam: CTA Chest With Contrast Exam date and time: 07/12/2024 10:08 PM Age: 64 years old Clinical indication: Shortness of breath and other: SOA, pleuritic cp TECHNIQUE: Imaging protocol: Computed tomographic angiography of the chest with contrast. Exam focused on the arteries. 3D rendering (Not supervised by radiologist): MIP and/or 3D reconstructed images were created by the technologist. Radiation optimization: All CT scans at this facility use at least one of these dose optimization techniques: automated exposure control; mA and/or kV adjustment per patient size (includes targeted exams where dose is matched to clinical indication); or iterative reconstruction. Contrast material: ISOVUE 370; Contrast volume: 80 ml; Contrast route: INTRAVENOUS (IV); COMPARISON: CT ANGIO CHEST PE PROTOCOL 01/28/2024 9:37 AM FINDINGS: Pulmonary arteries: Normal. No pulmonary emboli. Aorta: Unremarkable. No aortic aneurysm. No aortic dissection. Lungs: Scattered tree-in-bud opacities in both lungs, more on the right upper lobe, concerning for bronchiolitis. Mild bronchial wall thickening, concerning for mild bronchitis. Pleural spaces: No pleural effusion. No pneumothorax. Heart: Unremarkable. No cardiomegaly. No pericardial effusion. Coronary arteries: There are atherosclerotic calcifications of the coronary arteries. Lymph nodes: Scattered small thoracic lymph nodes nonspecific. Diaphragm: The left hemidiaphragm is mildly elevated. Liver: Fatty changes of the liver. Spleen: A small splenule is seen adjacent to the spleen. Adrenal glands: There is a 1.6 cm nodule in the left adrenal gland, (series 5, image 129). Stomach: This thickening of the gastric cormier. Mild atrophy of the pancreas. Bones/joints: There are postoperative findings of ACDF at C7-T1. Shallow reverses curvature of the thoracic spine. There are degenerative changes of the shoulder joints. Chronic superior endplate compression fracture of the T11 vertebral body with associated prominent Schmorl's node. Multilevel degenerative disc and joint disease of the thoracic spine disease with vacuum disc phenomenon at T7-T8. Flowing syndesmophytes from T8 to T12 compatible with DISH. Soft tissues: Unremarkable. IMPRESSION: 1. Findings concerning for mild inflammatory changes of both lungs, more in the right our lobe, concerning for bronchiolitis. 2. Mild bronchial wall thickening concerning for mild bronchitis. 3. Coronary atherosclerosis. 4. No convincing evidence of pulmonary emboli.
[2024-07-12 21:39] LABS: Coronavirus 19, PCR Not Detected (NotDetected); Influenza A, PCR Not Detected (NotDetected); Influenza B, PCR Not Detected (NotDetected)
[2024-07-12 21:39] LABS: Lactate Venous 2.8 mmol/L (0.4-2.0); VBG Base Excess -1.3 mmol/L (-2.4-2.3); VBG HCO3 24.1 mmol/L (23-30); VBG Oxygen Saturation 88.3 % (50-70); VBG PCO2 43.3 mmol/L (35-51); VBG PH 7.36 mmol/L (7.31-7.41); VBG PO2 59.1 mmol/L (28-40); VBG Total CO2 25.4 mmol/L (23-27)
[2024-07-12 21:44] LABS: Albumin Level 4.1 g/dl (3.5-5.0); Chloride 108 mmol/L (98-107); Potassium 3.7 mmoL/L (3.5-5.1); Sodium 136 mmol/L (136-145)
[2024-07-12 21:47] LABS: Alanine Aminotransferase 36 U/L (12-78); Albumin/Globulin Ratio 1.4 (1.1-1.8); Alkaline Phosphatase 93 U/L (38-126); Anion Gap 5.7 mEq/L (5-15); Aspartate Amino Transferase 46 U/L (17-59); Basophils # 0.1 K/mm3 (0-0.2); Basophils % 0.6 % (0.1-2.0); Bilirubin,Total 0.4 mg/dl (0.2-1.3); Blood Urea Nitrogen 18 mg/dl (9-20); Calcium 9.4 mg/dl (8.4-10.2); Carbon Dioxide 26 mmol/L (22.0-30.0); Creatinine Clearance Estimated 75 mL/min (50-200); Eosinophils % 0.1 % (0.1-12.0); Estimated Glomerular Filt Rate 75 ml/min (>60); GFR (African American) 90 ML/MIN (>60); Globulin 2.9 g/dL (1.3-3.2); Glucose 129 mg/dl (74-100); Hematocrit 41.2 % (42.0-52.0); Hemoglobin 13.7 g/dL (14.1-18.0); Lymphocytes # 1.1 K/mm3 (0.7-4.5); Lymphocytes % 9.9 % (10-50); Mean Corpuscular HGB Conc 33.3 g/dL (31.8-35.4); Mean Corpuscular Hemoglobin 35.5 pg (27.0-31.2); Mean Corpuscular Volume 106.6 fl (80-94); Mean Platelet Volume 7.5 fl (7.4-10.4); Monocytes # 0.9 K/mm3 (0.1-1.0); Monocytes % 8.3 % (1.7-9.3); Neutrophils # 9.1 K/mm3 (1.8-7.8); Neutrophils % 81.1 % (37.0-80.0); Platelet Count 344 K/mm3 (142-424); Red Blood Count 3.87 M/mm3 (4.60-6.20); Red Cell Distribution Width 14.5 % (11.5-17.5); White Blood Count 11.3 K/mm3 (4.8-10.8)
[2024-07-12 21:48] LABS: Magnesium 1.9 mg/dl (1.6-2.3)
[2024-07-12 21:53] LABS: INR 0.89 (0.9-1.1); Prothrombin Time 10.1 seconds (10.1-12.5)
[2024-07-12 22:05] LABS: Troponin I 0.01 ng/ml (0.00-0.034)
[2024-07-12] MEDS: 0.9 % SODIUM CHLORIDE 50 ML VIAL IV (22:11)
[2024-07-12] MEDS: IOPAMIDOL-370 (76%);100ML BOTTLE 80 ML IV (22:11)
[2024-07-12] MEDS: SODIUM CHLORIDE 0.9% 10ML SYR (RAD ONLY) 10 ML IV (22:11)
[2024-07-12 22:16] LABS: Procalcitonin 0.063 ng/mL (0.0-2.0)
[2024-07-12 22:17] LABS: HIV (1&2) Antibody Rapid NONREACTIVE (NONREACTIVE)
[2024-07-12] MEDS: IPRATROPIUM/ALBUTEROL 3 ML NEB IH (22:37)
[2024-07-12] MEDS: METHYLPREDNISOLONE SOD SUCC 125MG VIAL 80 MG IV (22:38)
[2024-07-12] MEDS: MAGNESIUM SULFATE IN WATER 2 GM/50 ML PIGGYBACK IV (23:20)
[2024-07-13] VITALS (14 sets, daily range): BP systolic 111–150; BP diastolic 58–75; PULSE 80–112; RESP 19–22; TEMP 36.6–36.9; O2SAT 90–95; BMI 44.9
[2024-07-13 00:42] LABS: Reflex Lactic Add Lactic Reflex
--- NOTE | 2024-07-13 00:46 | PC.NURSE ---
Report called to SUDHAKAR Reyez
[2024-07-13 00:54] LABS: Lactic Acid Follow Up (RFLX 1) 1.1 mmol/L (0.7-2.1)
[2024-07-13 01:04] LABS: Troponin I < 0.01 ng/ml (0.00-0.034)
--- NOTE | 2024-07-13 02:01 | PC.NURSE ---
Patient arrived to floor via wheelchair from ED at 01:42.
--- NOTE | 2024-07-13 02:33 | P.HP_ITS ---
History of Present Illness *Admission Date: 07/13/24 *Reason for visit:: SOB *History of present illness: 64-year-old with past medical history COPD not on home oxygen, CAD with 10 stents, myocardial infarction x 4, recurrent angina, hypertension, hyperlipidemia, BPH, rheumatoid arthritis on methotrexate, obesity. Patient presents with 7 days of SOB, PATEL, malaise. Status post PCP appointment Wednesday given doxycycline/steroid prescriptions. Patient admitted for COPD exacerbation failing outpatient management. COPD exacerbation treated in emergency room for rounds DuoNebs, magnesium sulfate, and IV steroids without success. Patient on 2 L nasal cannula in emergency room, and states he does not use oxygen at home. Reports chest discomfort since 2006 off-and-on. States chest discomfort has been worse recently. Admits to history of CHF, and states he takes Lasix 40 mg p.o. twice daily daily. States that Dr. Sky is his track maintainer. Last appointment with Dr. Sky 1 month ago. Admits to fevers on Wednesday. States he has been suffering for chills for days. Admits to 24 hours of malaise. Denies lower extremity swelling, PND, but states she suffers from chronic orthopnea at baseline. [facility] Disclaimer: The information contained in this section may have been updated after the patient was seen, as this information can be updated by other users. Medical History Macular degeneration CHF (congestive heart failure) COPD exacerbation COPD (chronic obstructive pulmonary disease) Major depressive disorder Callus Abnormal nuclear cardiac imaging test Angina pectoris Hypertension Hyperlipidemia Abnormal result of cardiovascular function study Tachycardia Unstable angina Dizziness GERD (gastroesophageal reflux disease) Abnormal cardiovascular stress test Typical angina Tobacco dependence syndrome Abnormal EKG CAD (coronary artery disease) Edema Dyspnea Chest pain Surgical History History of hernia surgery H/O removal of cyst History of cardiac cath H/O heart artery stent History of coronary artery stent placement Family History Other No significant family history Social History (Updated 07/13/24 @ 02:24 by Aissatou Coleman RN) Smoking Status: Current every day smoker tobacco type: cigarettes packs per day: 1 and pipe alcohol intake: current alcohol intake frequency: a few times a month substance use type: former substance user and marijuana counseling given: No (patient refused) counseling provided: none current occupational status: disabled Travel in the last 8 weeks: None household members: children housing: house marital status: half-way: No caffeine: Yes physical activity: none Other Medical History Have you received the Flu Vaccine for this season: Yes Have you received the Pneumonia Vaccine: Yes Review of Systems Review of Systems Review of systems:: pertinent systems reviewed and negative unless documented below Constitutional Constitutional: Reports system reviewed and no additional complaints, except as documented Meds Home Medications and Allergies Home Medications ?Medication ?Instructions ?Recorded ?Confirmed ?Type albuterol sulfate 90 mcg/actuation 2 puff inhalation QIDP PRN 10/27/18 07/13/24 History aerosol inhaler Shortness Of Breath 25 days #9 grams budesonide-formoterol HFA 160 2 puff inhalation BIDRT 30 days 10/27/18 07/13/24 History mcg-4.5 mcg/actuation aerosol #10 grams inhaler tamsulosin 0.4 mg capsule 0.4 mg PO HS 90 days #90 caps 10/27/18 07/13/24 History gabapentin 300 mg capsule 300 mg PO TID 90 days #270 caps 10/10/19 07/13/24 History aspirin 81 mg tablet,delayed 81 mg PO DAILY Heart disease #90 10/09/20 07/13/24 Rx release (Adult Low Dose Aspirin) tabs folic acid 1 mg tablet 1 mg PO DAILY 10/26/22 07/13/24 History methotrexate sodium 2.5 mg tablet 20 mg PO FAIR 10/26/22 07/13/24 History atorvastatin 80 mg tablet 80 mg PO HS 03/12/24 07/13/24 History nitroglycerin 0.4 mg sublingual 0.4 mg sublingual Q5MINP PRN Chest 03/12/24 07/13/24 History tablet Pain pantoprazole 40 mg tablet,delayed 40 mg PO DAILY 03/12/24 07/13/24 History release potassium chloride 10 mEq 10 meq PO DAILY 03/12/24 07/13/24 History tablet,extended release cholecalciferol (vitamin D3) 125 5,000 unit PO DAILY 04/17/24 07/13/24 History mcg (5,000 unit) tablet (Vitamin D3) clopidogrel 75 mg tablet 75 mg PO DAILY 04/17/24 07/13/24 History dutasteride 0.5 mg capsule 0.5 mg PO DAILY 04/17/24 07/13/24 History lamotrigine 150 mg tablet 150 mg PO BID 04/17/24 07/13/24 History ranolazine 1,000 mg 1,000 mg PO BID 30 days #60 tabs 04/17/24 07/13/24 Rx tablet,extended release,12 hr vit C 250 mg-vit E 90 mg-zinc 40 1 cap PO BID 04/17/24 07/13/24 History mg-copper 1 rd-fmhema-ivtnsd capsule (PreserVision AREDS-2) amlodipine 10 mg tablet (Norvasc) 10 mg PO DAILY #30 tabs 05/03/24 07/13/24 Rx brexpiprazole 1 mg tablet (Rexulti) 1 mg PO DAILY #30 tabs 05/05/24 07/13/24 Rx methocarbamol 500 mg tablet 500 mg PO Q8H PRN muscle spasm #60 05/23/24 07/13/24 Rx tabs spironolactone 50 mg tablet 50 mg PO DAILY #90 tabs 06/16/24 07/13/24 Rx doxycycline monohydrate 100 mg 100 mg PO BID 07/13/24 07/13/24 History capsule furosemide 40 mg tablet 40 mg PO BID 07/13/24 07/13/24 History halobetasol propionate 0.05 % 1 applic topical BID 07/13/24 07/13/24 History topical cream isosorbide mononitrate 60 mg 60 mg PO BID 07/13/24 07/13/24 History tablet,extended release 24 hr metoprolol succinate 100 mg 100 mg PO HS 07/13/24 07/13/24 History tablet,extended release 24 hr trazodone 50 mg tablet 50 mg PO NEEDED PRN Insomnia 07/13/24 07/13/24 History vibegron 75 mg tablet (Gemtesa) 75 mg PO HS 07/13/24 07/13/24 History New Prescriptions to Start Prescriptions: Allergies Allergy/AdvReac Type Severity Reaction Status Date / Time nickel (NICKEL) Allergy Unknown I-RASH Verified 06/26/24 14:34 quetiapine (From SEROQUEL) Allergy Unknown I-RASH Verified 06/26/24 14:34 NSAIDS (Non-Steroidal AdvReac Verified 06/26/24 14:34 Anti-Inflamma Exam Data for Last 24 hours Vital signs and Labs for Last 24 Hours: Temp Pulse Resp BP Pulse Ox O2 Del Method O2 Flow Rate 97.9 F 109 H 19 150/64 H 94 L Nasal Cannula 2 07/13/24 01:44 07/13/24 01:45 07/13/24 01:45 07/13/24 01:45 07/13/24 01:45 07/13/24 01:45 07/13/24 01:45 Laboratory Results - last 24 hr 07/12/24 21:00: SARS-CoV-2 (PCR) Not detected, Influenza A Untype (PCR) Not detected, Influenza Type B (PCR) Not detected 07/12/24 21:06: WBC 11.3 H, RBC 3.87 L, Hgb 13.7 L, Hct 41.2 L, MCV 106.6 H, MCH 35.5 H, MCHC 33.3, RDW 14.5, Plt Count 344, MPV 7.5, Neut % (Auto) 81.1 H, Lymph % (Auto) 9.9 L, Mccormick % (Auto) 8.3, Eos % (Auto) 0.1, Baso % (Auto) 0.6, Neut # (Auto) 9.1 H, Lymph # (Auto) 1.1, Mccormick # (Auto) 0.9, Eos # (Auto) 0.0, Baso # (Auto) 0.1, PT 10.1, INR 0.89 L, Sodium 136, Potassium 3.7, Chloride 108 H, Carbon Dioxide 26, Anion Gap 5.7, BUN 18, Creatinine 1.00, Estimated Creat Clear 75, Estimated GFR 75, Est GFR ( Amer) 90, Glucose 129 H, Calcium 9.4, Magnesium 1.9, Total Bilirubin 0.4, AST 46, ALT 36, Alkaline Phosphatase 93, Troponin I 0.01, Total Protein 7.0, Albumin 4.1, Globulin 2.9, Albumin/Globulin Ratio 1.4, Procalcitonin 0.063, HIV 1&2 Antibody Rapid Nonreactive 07/12/24 21:20: VBG pH 7.36, VBG pCO2 43.3, VBG pO2 59.1 H, VBG HCO3 24.1, VBG Total CO2 25.4, VBG O2 Saturation 88.3 H, VBG Base Excess -1.3, VBG Lactic Acid 2.8 H 07/13/24 00:36: Troponin I < 0.01 07/13/24 00:42: Lactate 1.1 I & O for Last 24 hours: Intake & Output 07/10/24 07/11/24 07/12/24 07/13/24 23:59 23:59 23:59 23:59 Weight 142.428 kg 142.428 kg Constitutional Constitutional: moderate distress and obese *Routine HEENT Exam Head: Present normocephalic Eye: Present EOMI ENT: Present mucous membranes moist *Routine Neck Exam Neck: Present supple and full ROM *Routine Respiratory Exam Respiratory: Present decreased breath sounds, prolonged expiratory phase and wheezes *Routine Cardiovascular Exam Cardiovascular: Present RRR, Normal S1 and Normal S2 *Routine Abdominal Exam Abdominal: Present soft and normoactive bowel sounds; Absent rebound or guarding *Routine Rectal Exam Rectal:: deferred *Routine Genitalia Exam Genitalia:: deferred *Routine Extremities Exam Extremities: Present normal capillary refill *Routine Skin Exam Skin: Present intact *Routine Neurological Exam Neurological: Present alert and oriented X3 Assessment and Plan *Assessment and plan (1) Acute respiratory failure with hypoxia: Status: Acute Category: Medical Code(s): J96.01 - Acute respiratory failure with hypoxia (2) COPD exacerbation: Status: Acute Category: Medical Code(s): J44.1 - Chronic obstructive pulmonary disease with (acute) exacerbation (3) Arthritis of foot, degenerative: Status: Acute Qualifiers: Laterality: bilateral Osteoarthritis type: primary Qualified Code(s): M19.071 - Primary osteoarthritis, right ankle and foot; M19.072 - Primary osteoarthritis, left ankle and foot Category: Medical Code(s): M19.079 - Primary osteoarthritis, unspecified ankle and foot (4) Chest pain: Status: Chronic Qualifiers: Chest pain type: other chest pain Qualified Code(s): R07.89 - Other chest pain Category: Medical Code(s): R07.9 - Chest pain, unspecified (5) BPH (benign prostatic hyperplasia): Status: Chronic Qualifiers: Lower urinary tract symptom detail: unspecified Category: Medical Code(s): N40.0 - Benign prostatic hyperplasia without lower urinary tract symptoms (6) HLD (hyperlipidemia): Status: Chronic Qualifiers: Hyperlipidemia type: mixed hyperlipidemia Qualified Code(s): E78.2 - Mixed hyperlipidemia Category: Medical Code(s): E78.5 - Hyperlipidemia, unspecified (7) HTN (hypertension): Status: Chronic Qualifiers: Hypertension type: essential hypertension Qualified Code(s): I10 - Essential (primary) hypertension Category: Medical Code(s): I10 - Essential (primary) hypertension (8) History of coronary artery stent placement: Status: Chronic Category: Surgical Code(s): Z95.5 - Presence of coronary angioplasty implant and graft Plan 64-year-old with past medical history COPD not on home oxygen, CAD with 10 stents, myocardial infarction x 4, recurrent angina, hypertension, hyperlipidemia, BPH, rheumatoid arthritis on methotrexate, obesity. Patient presents with 7 days of SOB, PATEL, malaise. Status post PCP appointment Wednesday given doxycycline/steroid prescriptions. Patient admitted for COPD exacerbation failing outpatient management. COPD exacerbation treated in emergency room for rounds DuoNebs, magnesium sulfate, and IV steroids without success. Problems as listed below: COPD exacerbation failing outpatient/[place] management ? Reviewed labs at time of admission. WBC 11.3, Hg 13.7, percent neutrophils 81.1%, NA 136, K3.7, chloride 108, CO2 26, BUN 18, creatinine 1.0, glucose 129, mag 1.9, lactic acid 2.8. I will recheck CBC, BMP, mag, and lactic acid in AM. ? VBG pH 7.36, pCO2 24.1. I will also recheck lactic acid in a.m. since lactic acid elevated on VBG. ? IV Solu-Medrol 40 mg every 6, DuoNebs 3 mL inhale every 6, albuterol 2.5 mg inhaled Q4 as needed shortness of breath, IV doxycycline 100 mg every 12, IV Rocephin 1 g every 24, incentive spirometer, O2 to keep sats greater than 90%. Patient may need home oxygen at time of hospital discharge. Will also consult pulmonary for management advised. I ordered sputum culture respiratory panel. CTA chest shows no pulmonary embolus but does show signs of bronchiolitis. CAD with chronic chest discomfort: ? Admits to 10 stents. Denies recurrent sleeping, PND. States he suffers from chronic orthopnea. Check serial troponins, will also order serial BMPs during hospitalization. Consult cardiology for evaluation. Patient likely suffering from chronic angina but will rule out ACS during this hospitalization. Aspirin 81 mg p.o. daily. Plavix 75 mg p.o. daily. Imdur 60 mg p.o. twice daily. Metoprolol succinate 100 mg p.o. nightly. Ranexa 100 mg p.o. twice daily CHF not in exacerbation: Continue home Lasix 40 mg p.o. twice daily. Close as above in CAD section. BPH: Tamsulosin 0.4 p.o. nightly Hypertension: Amlodipine 10 mg p.o. daily, 10 mg IV hydralazine every 6 as needed SBP greater than 160. PPx Lovenox 40 mg subcu daily FEN: Cardiac diet MDM Copa moderate, patient with COPD exacerbation with systemic symptoms of weakness, shortness of breath, malaise Data high, see above. I spoke with the emergency room and agree patient required admission for COPD exacerbation failing outpatient/[place] management Risk moderate, prescription drug management as noted above including IV hydralazine, IV Solu-Medrol 35 minutes of total care time spent on patient by Dr. Truong 07/13/2024
--- NOTE | 2024-07-13 02:48 | PC.NURSE ---
Addendum entered by Aissatou Coleman RN 07/13/24 02:50: Admission and home reconciliation completed. Original Note: During admission, patient did report having some pain. He said that he was still having localized left chest pain that is bearable and tends to come and go, but he has been having pretty significant pain in his back and hips. Alexi UNGER was paged at this time for new pain medication orders.
[2024-07-13] MEDS: DOXYCYCLINE HYCL 100 MG TABLET PO ×2 (03:00→14:08)
[2024-07-13] MEDS: METHYLPREDNISOLONE SOD SUCC 40MG VIAL 40 MG IV ×2 (03:00→08:37)
[2024-07-13] MEDS: CEFTRIAXONE SODIUM 1 GM in 0.9 % SODIUM CHLORIDE 50 ML IV (03:00)
[2024-07-13] MEDS: MORPHINE 2MG/ML SYRINGE 2 MG IV (03:00)
--- NOTE | 2024-07-13 03:26 | PC.NURSE ---
Full respiratory panel (w/ COVID) collected at 03:20 and sent to lab at this time.
[2024-07-13 03:29] LABS: Adenovirus,PCR Not Detected (NotDetected); Bordetella Pertussis Not Detected (NotDetected); Chlamydophila Pneumoniae, PCR Not Detected (NotDetected); Coronavirus 19, PCR Not Detected (NotDetected); Coronavirus 229E Not Detected (NotDetected); Coronavirus NL63 Not Detected (NotDetected); Coronavirus OC43 Not Detected (NotDetected); Coronovirus HKU1,PCR Not Detected (NotDetected); Human Metapneumovirus Not Detected (NotDetected); Influenza A, PCR Not Detected (NotDetected); Influenza AH1, 2009 Not Detected (NotDetected); Influenza AH1, PCR Not Detected (NotDetected); Influenza AH3,PCR Not Detected (NotDetected); Influenza B, PCR Not Detected (NotDetected); Mycoplasma Pneumoniae, PCR Not Detected (NotDetected); Parainfluenza 1, PCR Not Detected (NotDetected); Parainfluenza 2, PCR Not Detected (NotDetected); Parainfluenza 3, PCR Not Detected (NotDetected); Parainfluenza 4, PCR Not Detected (NotDetected); Rhinovirus/Enterovirus Not Detected (NotDetected)
[2024-07-13 04:26] LABS: Troponin I < 0.01 ng/ml (0.00-0.034)
--- NOTE | 2024-07-13 04:35 | PC.NURSE ---
Mr Abe Maharaj Jr. was newly admitted this shift on behalf of the following documented diagnoses: hypoxic respiratory failure and COPD exacerbation. Patient is a former multiple substance user, current marijuana user, weekly alcohol drinker, and daily tobacco user. He has an extensive medical and cardiac history (10 stents placed, CHF). Patient reported that he has been battling with complicated grief and follows with behavioral health. During his admission assessment, he explained that his present respiratory symptoms have been getting worse since last . Patient stated that he has not been able to sleep for a week due to not being able to breathe. He also stated that he has been having multiple falls and blackouts at home due to the many medications he has been put on ( > 20 meds). He has bilateral solomon bruising on his anterior forearms. All four extremities slightly edematous. Patient described his appetite as being fairly poor at this time. He was given ice water and a bag of baked Lay's. Patient is alert and oriented x4. He ambulates independently but appears to become very easily overexerted. Upon auscultation of his lungs, inspiratory/expiratory wheezing could be heard in both lungs, while crackling could be heard only in his right lung. He has been purse-lipped breathing. Patient has intermittent, strong cough; he stated that he occasionally coughs up sputum, describing it as green, yellow, and viscous. A deviated septum was noted. He has been having pain localized to the left of his chest that comes and goes, but the pain in his back and right hip has been too much to bear for him. Patient was given 1 dose of IV morphine per SEP for his pain; he reported that the medication helped, but it did make him extremely dizzy. Patient was given antibiotics (IV/PO) and IV methylprednisolone per MAR this shift. He has been running sinus tachycardic on telemetry. Patient's oxygen saturations have remained > 90% since his arrival to the floor. He has been tolerating 2 L of oxygen via nasal cannula humidified. He does not wear oxygen at home. He was given an incentive spirometer to use as appropriately at the bedside. At this time, the patient is observed to have eyes closed, respirations even but slightly labored, and no apparent distress. No acute changes were noted thus far. Call light within reach.
[2024-07-13] MEDS: IPRATROPIUM/ALBUTEROL 3 ML NEB IH ×4 (06:17→22:05)
[2024-07-13 06:51] LABS: NT Pro Brain Natriuretic Pep. 550 pg/mL (0-125)
--- NOTE | 2024-07-13 08:01 | HMH.PHAINT1 ---
Pharmacy Intervention Comments: HOME MEDICATIONS VERIFIED VIA OUTPATIENT PHARMACY AND PATIENT INTERVIEW
[2024-07-13] MEDS: SPIRONOLACTONE 25MG TABLET 50 MG PO (08:36)
[2024-07-13] MEDS: FUROSEMIDE 40 MG TABLET PO (08:37)
[2024-07-13] MEDS: CLOPIDOGREL 75MG TAB 75 MG PO (08:37)
[2024-07-13] MEDS: GABAPENTIN 300MG CAPSULE 300 MG PO (08:37)
[2024-07-13] MEDS: FOLIC ACID 1MG TABLET 1 MG PO (08:37)
[2024-07-13] MEDS: RANOLAZINE 500MG ER TABLET 1000 MG PO (08:38)
[2024-07-13] MEDS: ASPIRIN EC 81MG TABLET 81 MG PO (08:38)
[2024-07-13 08:51] LABS: Respiratory Syncytial Virus Detected (NotDetected)
[2024-07-13 10:17] LABS: Troponin I < 0.01 ng/ml (0.00-0.034)
--- NOTE | 2024-07-13 10:28 | PC.NURSE ---
late entry, around 0845 went to pts room for morning meds and assessment. pt was in the bathroom stating he was soa and wanting a breathing tx. notified rt. pt came out of the br very anxious with labored breathing. o2 sat 85% on 2lnc. rt admin neb tx and pt calmed down, o2 sats improved to mid to low 90s after o2 was increased to 4l nc. pt also mentioned his a few years back from lung issues and he mentioned to rt he use to be on xanax for his nerves and quit taking it but is now requesting a dose. notified of this mornings episode and pts request.
--- NOTE | 2024-07-13 10:36 | CA_ITS ---
APPROVED REPORT EXAM: Comprehensive 2D, Doppler, and color-flow Echocardiogram Agency Appointments Supervisor: THANH Perla, RVS Ht: 5 ft 10 in Wt: 314lbs BSA: 2.53 BP: 150/64 mmHg Indications: HFrEF, CAD, CHF, Smoker, COPD, HTN, HLD 2D Dimensions IVSd 1.12 cm M: 0.6-1.2 LVEF (Visual) 41.10 % PWd 1.16 cm M: 0.6 - 1.2 LA Volume 86.40 mL LVDd 5.05 cm M: 4.2 - 5.9 LA Volume Index [id number] mL/m2 (M/F) 16-34 LVDs 4.03 cm M: 2.5 - 4.0 Left Atrium 4.30 cm M: 3.0 - 4.0 M-Mode Dimensions RVDd 2.81 cm (0.9-2.6) LA Diam 4.86 cm (1.9-4.0) LVDd 5.92 cm (3.5-5.7) LVDs 4.00 cm (3.5-5.7) IVSd 1.15 cm (0.6-1.1) PWd 1.36 cm (0.6-1.1) EF (Teich) 59.90% EPSs 0.77 cm FS 32.40% EDV (Teich) 174.60 mL TAPSE 2.59 (<1.7) ESV (Teich) 70.00 mL LV Diastology E Decel Time 177 (160-240 msec) E/A Ratio 0.90 MED A' 10.30 cm/s LAT A' 7.80 cm/s Pulm Vein s 52.00 cm/sec Pulm Vein d 47.00 cm/sec Ar-A Duration 113.00 msec Aortic Valve PHILLIP Index 0.98 cm2/m2 AoV Peak Elpidio. 185.0 (50-130 cm/s) AO Peak GR. 13.70 mmHg AO Mean GR. 6.80 (<5 mmHg) AO VTI 37.6 (18-25 cm) PHILLIP (VTI) 2.55 (2.5-4.5 cm2) Mitral Valve MV E Max Elpidio. 81.0 (40-130 cm/s) MV A Velocity 90.0 (40-130 cm/s) E/A Ratio 0.90 MV PHT 52.0 ms Pulmonary Valve PV Peak Velocity 115.0 (50-150 cm/s) Left Ventricle The left ventricle is normal size. The left ventricular systolic function is normal. The left ventricular ejection fraction is within the normal range. There is increased LV wall thickness. There is normal LV segmental wall motion. The left ventricular diastolic function is normal. LVEF is 55%. Right Ventricle The right ventricle is normal size. The right ventricular systolic function is normal. Atria The left atrium size is normal. The right atrium size is normal. There is no Doppler evidence of interatrial shunt. Aortic Valve The aortic valve is mildly thickened. There is no aortic valvular stenosis. Trace aortic regurgitation. Mitral Valve The mitral valve is normal in structure. No evidence of mitral valve stenosis. Trace mitral regurgitation. Tricuspid Valve Tricuspid valve is grossly normal in structure and function. Trace tricuspid regurgitation. There is insufficient TR jet to estimate RVSP. Pulmonic Valve The pulmonary valve is normal in structure. Trace pulmonic regurgitation. Great Vessels The aortic root is normal in size. The ascending aorta is not well-visualized. IVC is normal in size and collapses >50% with inspiration. Pericardium There is no pericardial effusion. Other Information Study Quality: Adequate Conclusion Normal biventricular systolic function. No significant valvular stenosis or regurgitation. Electronically signed by : Chanda Michelle MD 07/13/2024 23:20:30
[2024-07-13] MEDS: MAGNESIUM SULFATE IN WATER 2 GM/50 ML PIGGYBACK IV (12:19)
[2024-07-13] MEDS: FUROSEMIDE 40MG/4ML VIAL 40 MG IV ×2 (12:19→17:13)
[2024-07-13] MEDS: hydrOXYzine pamoate 25MG CAPSULE 25 MG PO (12:20)
[2024-07-13] MEDS: PAT OWN MED ***GABAPENTIN 300MG 300 MG PO ×2 (12:20→20:21)
--- NOTE | 2024-07-13 12:57 | P.CONCA_ITS ---
History of Present Illness History of Present Illness Consult date: 07/13/24 Requesting physician: Shaun Bell Consult reason: chest pain and shortness of breath Chief complaint: SOA, chest pain History of present illness: This is a 64-year-old white gentleman who presented to the emergency department with complaints of shortness of breath and chest pain. He has a past medical history of coronary artery disease, hypertension, hyperlipidemia, MO, COPD. The patient states that he started having shortness of breath last . He reports that with the shortness of breath that has been getting progressively worse. He states his shortness of breath is associated with lower extremity edema. He states that he has had some chest pain as well that he describes as a pressure sensation in his chest. His shortness of breath is also associated with orthopnea, PND, fatigue and malaise. The patient states that he is even unable to do simple activities around his house because of his profound shortness of breath. He decided to come to the emergency department because his symptoms continued to worsen. The patient states that his chest comfort is essentially the normal chest discomfort he normally experiences. He states his shortness of breath has been significantly worse than usual. He does report having fevers over the weekend and chills off and on since he started feeling bad last . He states that he was having really bad chills last night. [facility] Disclaimer: The information contained in this section may have been updated after the patient was seen, as this information can be updated by other users. Medical History (Updated 07/13/24 @ 13:04 by Rafaela Sanders APRN) Grief SOBOE (shortness of breath on exertion) Acute on chronic heart failure with preserved ejection fraction (HFpEF) Deviated nasal septum Macular degeneration CHF (congestive heart failure) COPD exacerbation COPD (chronic obstructive pulmonary disease) Major depressive disorder Callus Abnormal nuclear cardiac imaging test Angina pectoris Hypertension Hyperlipidemia Abnormal result of cardiovascular function study Tachycardia Unstable angina Dizziness GERD (gastroesophageal reflux disease) Abnormal cardiovascular stress test Typical angina Tobacco dependence syndrome Abnormal EKG CAD (coronary artery disease) Edema Dyspnea Chest pain Surgical History (Updated 07/13/24 @ 06:19 by Aissatou Coleman RN) History of hernia surgery H/O removal of cyst History of cardiac cath H/O heart artery stent History of coronary artery stent placement Family History Other No significant family history Social History (Updated 07/13/24 @ 02:24 by Aissatou Coleman RN) Smoking Status: Current every day smoker tobacco type: cigarettes packs per day: 1 and pipe alcohol intake: current alcohol intake frequency: a few times a month substance use type: former substance user and marijuana counseling given: No (patient refused) counseling provided: none current occupational status: disabled Travel in the last 8 weeks: None household members: children housing: house marital status: care home: No caffeine: Yes physical activity: none Review of Systems Review of Systems Review of systems:: pertinent systems reviewed and negative unless documented below Constitutional Constitutional: Reports system reviewed and no additional complaints, except as documented, Reports chills, Reports fatigue, Reports fever(s), Reports lethargy and Reports malaise Eyes Eyes: Reports system reviewed and no additional complaints, except as documented ENT Ears, Nose, Mouth, and Throat: Reports system reviewed and no additional complaints, except as documented *Cardiovascular Cardiovascular: Reports system reviewed and no additional complaints, except as documented, Reports chest pain, Reports chest pain at rest, Reports chest pain with activity, Reports dyspnea, Reports dyspnea on exertion, Reports leg edema, Reports orthopnea, Reports paroxysmal nocturnal dyspnea and Reports pedal edema *Respiratory Respiratory: Reports system reviewed and no additional complaints, except as documented, Reports chest congestion, Reports dyspnea and Reports dyspnea on exertion *Gastrointestinal Gastrointestinal: Reports system reviewed and no additional complaints, except as documented *Genitourinary Genitourinary: Reports system reviewed and no additional complaints, except as documented *Musculoskeletal Musculoskeletal: Reports system reviewed and no additional complaints, except as documented Integumentary/Breasts Skin/Breast: Reports system reviewed and no additional complaints, except as documented *Neurologic Neurologic: Reports system reviewed and no additional complaints, except as documented Psychiatric Psychiatric: Reports system reviewed and no additional complaints, except as documented Endocrine Endocrine: Reports system reviewed and no additional complaints, except as documented and Reports fatigue Hematologic/Lymphatic Hematologic/Lymphatic: Reports system reviewed and no additional complaints, except as documented Allergic/Immunologic Allergic/Immunologic: Reports system reviewed and no additional complaints, except as documented Exam Data for Last 24 hours Vital signs and Labs for Last 24 Hours: Temp Pulse Resp BP Pulse Ox O2 Del Method O2 Flow Rate 98.3 F 88 20 137/66 93 L Nasal Cannula 4 07/13/24 12:20 07/13/24 12:54 07/13/24 12:20 07/13/24 12:20 07/13/24 12:20 07/13/24 12:20 07/13/24 12:20 Laboratory Results - last 24 hr 07/12/24 21:00: SARS-CoV-2 (PCR) Not detected, Influenza A Untype (PCR) Not detected, Influenza Type B (PCR) Not detected 07/12/24 21:06: WBC 11.3 H, RBC 3.87 L, Hgb 13.7 L, Hct 41.2 L, MCV 106.6 H, MCH 35.5 H, MCHC 33.3, RDW 14.5, Plt Count 344, MPV 7.5, Neut % (Auto) 81.1 H, Lymph % (Auto) 9.9 L, [place] % (Auto) 8.3, Eos % (Auto) 0.1, Baso % (Auto) 0.6, Neut # (Auto) 9.1 H, Lymph # (Auto) 1.1, [place] # (Auto) 0.9, Eos # (Auto) 0.0, Baso # (Auto) 0.1, PT 10.1, INR 0.89 L, Sodium 136, Potassium 3.7, Chloride 108 H, Carbon Dioxide 26, Anion Gap 5.7, BUN 18, Creatinine 1.00, Estimated Creat Clear 75, Estimated GFR 75, Est GFR ( Amer) 90, Glucose 129 H, Calcium 9.4, Magnesium 1.9, Total Bilirubin 0.4, AST 46, ALT 36, Alkaline Phosphatase 93, Troponin I 0.01, Total Protein 7.0, Albumin 4.1, Globulin 2.9, Albumin/Globulin Ratio 1.4, Procalcitonin 0.063, HIV 1&2 Antibody Rapid Nonreactive 07/12/24 21:20: VBG pH 7.36, VBG pCO2 43.3, VBG pO2 59.1 H, VBG HCO3 24.1, VBG Total CO2 25.4, VBG O2 Saturation 88.3 H, VBG Base Excess -1.3, VBG Lactic Acid 2.8 H 07/13/24 00:36: Troponin I < 0.01 07/13/24 00:42: Lactate 1.1 07/13/24 01:56: Chlamy pneumoniae PCR Not detected, Adenovirus (PCR) Not detected, B. pertussis DNA (PCR) Not detected, Coronavirus OC43 (PCR) Not detected, Coronavirus HKU1 (PCR) Not detected, Coronavirus 229E (PCR) Not detected, SARS-CoV-2 (PCR) Not detected, Coronavirus NL63 (PCR) Not detected, Human Metapneumovir PCR Not detected, Influenza A (H1) PCR Not detected, Influ A (H1N1/09) PCR Not detected, Influenza A (H3) PCR Not detected, Influenza Type A (PCR) Not detected, Influenza Type B (PCR) Not detected, M. pneumoniae (PCR) Not detected, Parainfluenza 1 (PCR) Not detected, Parainfluenza 2 (PCR) Not detected, Parainfluenza 3 (PCR) Not detected, Parainfluenza 4 (PCR) Not detected, RSV (PCR) Detected A, Entero/Rhino (PCR) Not detected 07/13/24 03:45: Troponin I < 0.01 07/13/24 06:02: NT-Pro-B Natriuret Pep 550 H 07/13/24 09:36: Troponin I < 0.01 I & O for Last 24 hours: Intake & Output 07/10/24 07/11/24 07/12/24 07/13/24 23:59 23:59 23:59 23:59 Intake Total 400 / 400 Output Total 0 / 0 Balance 400 / 400 Weight 314 lb 314 lb Microbiology Reports for the Last 24 Hours: Microbiology 07/13/24 10:20 Sputum - Expectorated Sputum SE Preparation - Final Meds Home Medications and Allergies Home Medications ?Medication ?Instructions ?Recorded ?Confirmed ?Type albuterol sulfate 90 mcg/actuation 2 puff inhalation QIDP PRN 10/27/18 07/13/24 History aerosol inhaler Shortness Of Breath 25 days #9 grams budesonide-formoterol HFA 160 2 puff inhalation BID 30 days #10 10/27/18 07/13/24 History mcg-4.5 mcg/actuation aerosol grams inhaler tamsulosin 0.4 mg capsule 0.4 mg PO HS 90 days #90 caps 10/27/18 07/13/24 History gabapentin 300 mg capsule 300 mg PO TID 90 days #270 caps 10/10/19 07/13/24 History folic acid 1 mg tablet 1 mg PO DAILY 10/26/22 07/13/24 History methotrexate sodium 2.5 mg tablet 20 mg PO WEEKLY 10/26/22 07/13/24 History atorvastatin 80 mg tablet 80 mg PO HS 03/12/24 07/13/24 History nitroglycerin 0.4 mg sublingual 0.4 mg sublingual Q5MINP PRN Chest 03/12/24 07/13/24 History tablet Pain pantoprazole 40 mg tablet,delayed 40 mg PO DAILY 03/12/24 07/13/24 History release potassium chloride 10 mEq 10 meq PO DAILY 03/12/24 07/13/24 History tablet,extended release cholecalciferol (vitamin D3) 125 5,000 unit PO DAILY 04/17/24 07/13/24 History mcg (5,000 unit) tablet (Vitamin D3) clopidogrel 75 mg tablet 75 mg PO DAILY 04/17/24 07/13/24 History dutasteride 0.5 mg capsule 0.5 mg PO DAILY 04/17/24 07/13/24 History lamotrigine 150 mg tablet 150 mg PO BID 04/17/24 07/13/24 History ranolazine 1,000 mg 1,000 mg PO BID 30 days #60 tabs 04/17/24 07/13/24 Rx tablet,extended release,12 hr vit C 250 mg-vit E 90 mg-zinc 40 1 cap PO BID 04/17/24 07/13/24 History mg-copper 1 po-hkxhlo-iisurr capsule (PreserVision AREDS-2) amlodipine 10 mg tablet (Norvasc) 10 mg PO DAILY #30 tabs 05/03/24 07/13/24 Rx brexpiprazole 1 mg tablet (Rexulti) 1 mg PO DAILY #30 tabs 05/05/24 07/13/24 Rx spironolactone 50 mg tablet 50 mg PO DAILY #90 tabs 06/16/24 07/13/24 Rx aspirin 81 mg tablet,delayed 81 mg PO DAILY 07/13/24 07/13/24 History release furosemide 40 mg tablet 80 mg PO DAILY 07/13/24 07/13/24 History isosorbide mononitrate 60 mg 60 mg PO BID 07/13/24 07/13/24 History tablet,extended release 24 hr methocarbamol 500 mg tablet 500 mg PO Q8HP PRN muscle spasm 07/13/24 07/13/24 History metoprolol succinate 100 mg 100 mg PO HS 07/13/24 07/13/24 History tablet,extended release 24 hr trazodone 50 mg tablet 50 mg PO HSP PRN Insomnia 07/13/24 07/13/24 History vibegron 75 mg tablet (Gemtesa) 75 mg PO HS 07/13/24 07/13/24 History New Prescriptions to Start Prescriptions: Allergies Allergy/AdvReac Type Severity Reaction Status Date / Time nickel (NICKEL) Allergy Unknown I-RASH Verified 06/26/24 14:34 quetiapine (From SEROQUEL) Allergy Unknown I-RASH Verified 06/26/24 14:34 NSAIDS (Non-Steroidal AdvReac Verified 06/26/24 14:34 Anti-Inflamma Assessment and Plan *Assessment and plan (1) Acute on chronic heart failure with preserved ejection fraction (HFpEF): Status: Acute Category: Medical Code(s): I50.33 - Acute on chronic diastolic (congestive) heart failure (2) SOBOE (shortness of breath on exertion): Status: Acute Category: Medical Code(s): R06.02 - Shortness of breath (3) CAD (coronary artery disease): Status: Chronic Qualifiers: Coronary Disease-Associated Artery/Lesion type: [place] artery [place] vs. transplanted heart: [place] heart Associated angina: with other forms of angina Qualified Code(s): I25.118 - Atherosclerotic heart disease of [place] coronary artery with other forms of angina pectoris Category: Medical Code(s): I25.10 - Atherosclerotic heart disease of [place] coronary artery without angina pectoris (4) History of coronary artery stent placement: Status: Chronic Category: Surgical Code(s): Z95.5 - Presence of coronary angioplasty implant and graft (5) Tobacco dependence syndrome: Status: Chronic Category: Medical Code(s): F17.200 - Nicotine dependence, unspecified, uncomplicated (6) GERD (gastroesophageal reflux disease): Status: Chronic Qualifiers: Esophagitis presence: without esophagitis Qualified Code(s): K21.9 - Gastro-esophageal reflux disease without esophagitis Category: Medical Code(s): K21.9 - Gastro-esophageal reflux disease without esophagitis (7) HTN (hypertension): Status: Chronic Qualifiers: Hypertension type: essential hypertension Qualified Code(s): I10 - Essential (primary) hypertension Category: Medical Code(s): I10 - Essential (primary) hypertension (8) HLD (hyperlipidemia): Status: Chronic Qualifiers: Hyperlipidemia type: mixed hyperlipidemia Qualified Code(s): E78.2 - Mixed hyperlipidemia Category: Medical Code(s): E78.5 - Hyperlipidemia, unspecified (9) Morbid obesity: Status: Chronic Category: Medical Code(s): E66.01 - Morbid (severe) obesity due to excess calories (10) COPD exacerbation: Status: Acute Category: Medical Code(s): J44.1 - Chronic obstructive pulmonary disease with (acute) exacerbation (11) Acute respiratory failure with hypoxia: Status: Acute Category: Medical Code(s): J96.01 - Acute respiratory failure with hypoxia (12) Grief: Status: Acute Category: Medical Code(s): F43.21 - Adjustment disorder with depressed mood Plan Plan: 1. The patient was admitted to the hospital due to shortness of breath and chest pain. The patient ruled out for an MO. No plans for invasive left cardiac catheterization at this time. 2. The patient is likely having acute on chronic HFpEF. His BNP is elevated. Will diurese the patient with Lasix 40 mg IV twice daily. 3. Continue spironolactone for diuresis. 4. The patient is also being treated for COPD exacerbation. Will defer management of this to the hospitalist. 5. Will obtain an echocardiogram to evaluate his LV function. 6. The patient lost his approximately 6 months ago. He states since that time he has been dealing with a significant amount of grief. His son reports that he continues to decline since that time. 7. His blood pressure is well-controlled. 8. His LDL goal is less than 55. He is on a statin. Will get a lipid panel in the morning. 9. Further recommendations will be made pending the patient's response to treatment and the results of his echocardiogram today. Thank you for the opportunity to help participate in the care of this patient. All recommendations and orders are per Dr. Michelle.
--- NOTE | 2024-07-13 13:28 | EXP.PULM.CON ---
History of Present Illness History of present illness: Mr. Maharaj is a 64-year-old male current smoker greater than [id number] smoking history carries a diagnosis COPD on Symbicort inhaler at baseline presents hospital complaining worsening respiratory distress cough and productive phlegm increasing oxygen comments in pulmonary call for further evaluation and management. Patient complains of worsening respiratory distress along with cough and productive phlegm worsening wheezing along with upper respiratory symptoms. He has been using Symbicort on a scheduled basis. He does not have rescue inhaler/nebulizer therapy. [facility] Disclaimer: The information contained in this section may have been updated after the patient was seen, as this information can be updated by other users. Medical History (Updated 07/13/24 @ 13:31 by Alonzo Lea MD) Acute and chronic respiratory failure with hypoxia Viral pneumonia Grief SOBOE (shortness of breath on exertion) Acute on chronic heart failure with preserved ejection fraction (HFpEF) Deviated nasal septum Macular degeneration CHF (congestive heart failure) COPD exacerbation COPD (chronic obstructive pulmonary disease) Major depressive disorder Callus Abnormal nuclear cardiac imaging test Angina pectoris Hypertension Hyperlipidemia Abnormal result of cardiovascular function study Tachycardia Unstable angina Dizziness GERD (gastroesophageal reflux disease) Abnormal cardiovascular stress test Typical angina Tobacco dependence syndrome Abnormal EKG CAD (coronary artery disease) Edema Dyspnea Chest pain Surgical History (Updated 07/13/24 @ 06:19 by Aissatou Coleman RN) History of hernia surgery H/O removal of cyst History of cardiac cath H/O heart artery stent History of coronary artery stent placement Family History Other No significant family history Social History (Updated 07/13/24 @ 02:24 by Aissatou Coleman RN) Smoking Status: Current every day smoker tobacco type: cigarettes packs per day: 1 and pipe alcohol intake: current alcohol intake frequency: a few times a month substance use type: former substance user and marijuana counseling given: No (patient refused) counseling provided: none current occupational status: disabled Travel in the last 8 weeks: None household members: children housing: house marital status: long-term: No caffeine: Yes physical activity: none Review of Systems Constitutional Constitutional: Reports anorexia, Reports body ache(s) and Reports fatigue Eyes Eyes: Denies eye discharge, Denies dry eyes, Denies irritation and Denies itchy eyes ENT Ears, Nose, Mouth, and Throat: Denies epistaxis, Denies facial pain, Denies lip swelling and Denies throat swelling *Cardiovascular Cardiovascular: Reports dyspnea, Reports dyspnea on exertion, Reports leg edema and Reports orthopnea *Respiratory Respiratory: Reports change in phlegm color, Reports chest congestion, Reports cough, Reports dyspnea, Reports dyspnea on exertion, Reports excessive phlegm production, Denies hemoptysis, Denies pain on inspiration and Reports wheezing *Gastrointestinal Gastrointestinal: Denies abdominal pain, Denies belching and Denies cramping *Musculoskeletal Musculoskeletal: Reports back pain, Reports myalgias and Reports other (No small joint swelling or Pain) *Neurologic Neurologic: Reports system reviewed and no additional complaints, except as documented Psychiatric Psychiatric: Denies homicidal ideation and Denies suicidal ideation Endocrine Endocrine: Reports fatigue and Denies heat intolerance Hematologic/Lymphatic Hematologic/Lymphatic: Denies easy bleeding and Denies lymphadenopathy Allergic/Immunologic Allergic/Immunologic: Denies itchy eyes, Denies lip swelling, Denies throat swelling and Reports wheezing Pulmonology Exam Inpatient Vital signs and Labs for Last 24 Hours: Temp Pulse Resp BP Pulse Ox O2 Del Method O2 Flow Rate 98.3 F 88 20 137/66 93 L Nasal Cannula 4 07/13/24 12:20 07/13/24 12:54 07/13/24 12:20 07/13/24 12:20 07/13/24 12:20 07/13/24 12:20 07/13/24 12:20 Laboratory Results - last 24 hr 07/12/24 21:00: SARS-CoV-2 (PCR) Not detected, Influenza A Untype (PCR) Not detected, Influenza Type B (PCR) Not detected 07/12/24 21:06: WBC 11.3 H, RBC 3.87 L, Hgb 13.7 L, Hct 41.2 L, MCV 106.6 H, MCH 35.5 H, MCHC 33.3, RDW 14.5, Plt Count 344, MPV 7.5, Neut % (Auto) 81.1 H, Lymph % (Auto) 9.9 L, [place] % (Auto) 8.3, Eos % (Auto) 0.1, Baso % (Auto) 0.6, Neut # (Auto) 9.1 H, Lymph # (Auto) 1.1, [place] # (Auto) 0.9, Eos # (Auto) 0.0, Baso # (Auto) 0.1, PT 10.1, INR 0.89 L, Sodium 136, Potassium 3.7, Chloride 108 H, Carbon Dioxide 26, Anion Gap 5.7, BUN 18, Creatinine 1.00, Estimated Creat Clear 75, Estimated GFR 75, Est GFR ( Amer) 90, Glucose 129 H, Calcium 9.4, Magnesium 1.9, Total Bilirubin 0.4, AST 46, ALT 36, Alkaline Phosphatase 93, Troponin I 0.01, Total Protein 7.0, Albumin 4.1, Globulin 2.9, Albumin/Globulin Ratio 1.4, Procalcitonin 0.063, HIV 1&2 Antibody Rapid Nonreactive 07/12/24 21:20: VBG pH 7.36, VBG pCO2 43.3, VBG pO2 59.1 H, VBG HCO3 24.1, VBG Total CO2 25.4, VBG O2 Saturation 88.3 H, VBG Base Excess -1.3, VBG Lactic Acid 2.8 H 07/13/24 00:36: Troponin I < 0.01 07/13/24 00:42: Lactate 1.1 07/13/24 01:56: Chlamy pneumoniae PCR Not detected, Adenovirus (PCR) Not detected, B. pertussis DNA (PCR) Not detected, Coronavirus OC43 (PCR) Not detected, Coronavirus HKU1 (PCR) Not detected, Coronavirus 229E (PCR) Not detected, SARS-CoV-2 (PCR) Not detected, Coronavirus NL63 (PCR) Not detected, Human Metapneumovir PCR Not detected, Influenza A (H1) PCR Not detected, Influ A (H1N1/09) PCR Not detected, Influenza A (H3) PCR Not detected, Influenza Type A (PCR) Not detected, Influenza Type B (PCR) Not detected, M. pneumoniae (PCR) Not detected, Parainfluenza 1 (PCR) Not detected, Parainfluenza 2 (PCR) Not detected, Parainfluenza 3 (PCR) Not detected, Parainfluenza 4 (PCR) Not detected, RSV (PCR) Detected A, Entero/Rhino (PCR) Not detected 07/13/24 03:45: Troponin I < 0.01 07/13/24 06:02: NT-Pro-B Natriuret Pep 550 H 12/12/24 09:36: Troponin I < 0.01 I & O for Labs for Last 24 Hours: Intake & Output 07/10/24 07/11/24 07/12/24 07/13/24 23:59 23:59 23:59 23:59 Intake Total 400 / 400 Output Total 0 / 0 Balance 400 / 400 Weight 314 lb 314 lb Microbiology Reports for the Last 24 Hours: Microbiology 07/13/24 10:20 Sputum - Expectorated Sputum SE Preparation - Final Constitutional: Present severe distress Head: Present normocephalic and atraumatic ENT: Present normal exam, normal oropharynx and mucous membranes moist Neck: Present normal inspection and full ROM Respiratory: Present respiratory distress, wheezes, crackles and diminished air movement; Absent able to speak in complete sentences Cardiac: Present S1/S2, Tachycardia and radial pulses present GI: Present soft and distention; Absent tenderness or guarding Skin: Present intact; Absent cyanosis or jaundice Neuro: Present alert, awake and oriented x 3 Extremities: Present normal inspection and edema; Absent clubbing or cyanosis Psychiatric: Present normal affect and cooperative Meds Home Medications and Allergies Home Medications ?Medication ?Instructions ?Recorded ?Confirmed ?Type albuterol sulfate 90 mcg/actuation 2 puff inhalation QIDP PRN 10/27/18 07/13/24 History aerosol inhaler Shortness Of Breath 25 days #9 grams budesonide-formoterol HFA 160 2 puff inhalation BID 30 days #10 10/27/18 07/13/24 History mcg-4.5 mcg/actuation aerosol grams inhaler tamsulosin 0.4 mg capsule 0.4 mg PO HS 90 days #90 caps 10/27/18 07/13/24 History gabapentin 300 mg capsule 300 mg PO TID 90 days #270 caps 10/10/19 07/13/24 History folic acid 1 mg tablet 1 mg PO DAILY 10/26/22 07/13/24 History methotrexate sodium 2.5 mg tablet 20 mg PO WEEKLY 10/26/22 07/13/24 History atorvastatin 80 mg tablet 80 mg PO HS 03/12/24 07/13/24 History nitroglycerin 0.4 mg sublingual 0.4 mg sublingual Q5MINP PRN Chest 03/12/24 07/13/24 History tablet Pain pantoprazole 40 mg tablet,delayed 40 mg PO DAILY 03/12/24 07/13/24 History release potassium chloride 10 mEq 10 meq PO DAILY 03/12/24 07/13/24 History tablet,extended release cholecalciferol (vitamin D3) 125 5,000 unit PO DAILY 04/17/24 07/13/24 History mcg (5,000 unit) tablet (Vitamin D3) clopidogrel 75 mg tablet 75 mg PO DAILY 04/17/24 07/13/24 History dutasteride 0.5 mg capsule 0.5 mg PO DAILY 04/17/24 07/13/24 History lamotrigine 150 mg tablet 150 mg PO BID 04/17/24 07/13/24 History ranolazine 1,000 mg 1,000 mg PO BID 30 days #60 tabs 04/17/24 07/13/24 Rx tablet,extended release,12 hr vit C 250 mg-vit E 90 mg-zinc 40 1 cap PO BID 04/17/24 07/13/24 History mg-copper 1 [id number] capsule (PreserVision AREDS-2) amlodipine 10 mg tablet (Norvasc) 10 mg PO DAILY #30 tabs 05/03/24 07/13/24 Rx brexpiprazole 1 mg tablet (Rexulti) 1 mg PO DAILY #30 tabs 05/05/24 07/13/24 Rx spironolactone 50 mg tablet 50 mg PO DAILY #90 tabs 06/16/24 07/13/24 Rx aspirin 81 mg tablet,delayed 81 mg PO DAILY 07/13/24 07/13/24 History release furosemide 40 mg tablet 80 mg PO DAILY 07/13/24 07/13/24 History isosorbide mononitrate 60 mg 60 mg PO BID 07/13/24 07/13/24 History tablet,extended release 24 hr methocarbamol 500 mg tablet 500 mg PO Q8HP PRN muscle spasm 07/13/24 07/13/24 History metoprolol succinate 100 mg 100 mg PO HS 07/13/24 07/13/24 History tablet,extended release 24 hr trazodone 50 mg tablet 50 mg PO HSP PRN Insomnia 07/13/24 07/13/24 History vibegron 75 mg tablet (Gemtesa) 75 mg PO HS 07/13/24 07/13/24 History New Prescriptions to Start Prescriptions: Allergies Allergy/AdvReac Type Severity Reaction Status Date / Time nickel (NICKEL) Allergy Unknown I-RASH Verified 06/26/24 14:34 quetiapine (From SEROQUEL) Allergy Unknown I-RASH Verified 06/26/24 14:34 NSAIDS (Non-Steroidal AdvReac Verified 06/26/24 14:34 Anti-Inflamma Results Laboratory Findings 07/12/24 21:06 07/12/24 21:06 PT/INR, D-dimer PT 10.1 seconds (10.1-12.5) 07/12/24 21:06 INR 0.89 (0.9-1.1) L 07/12/24 21:06 Abnormal lab findings: Abnormal Labs 07/12/24 07/12/24 07/13/24 21:06 21:20 01:56 WBC 11.3 H RBC 3.87 L Hgb 13.7 L Hct 41.2 L MCV 106.6 H MCH 35.5 H Neut % (Auto) 81.1 H Lymph % (Auto) 9.9 L Neut # (Auto) 9.1 H INR 0.89 L VBG pO2 59.1 H VBG O2 Saturation 88.3 H VBG Lactic Acid 2.8 H Chloride 108 H Glucose 129 H NT-Pro-B Natriuret Pep RSV (PCR) Detected A 07/13/24 06:02 WBC RBC Hgb Hct MCV MCH Neut % (Auto) Lymph % (Auto) Neut # (Auto) INR VBG pO2 VBG O2 Saturation VBG Lactic Acid Chloride Glucose NT-Pro-B Natriuret Pep 550 H RSV (PCR) Assessment and Plan *Assessment and plan (1) Viral pneumonia: Status: Acute Category: Medical Code(s): J12.9 - Viral pneumonia, unspecified (2) COPD exacerbation: Status: Acute Category: Medical Code(s): J44.1 - Chronic obstructive pulmonary disease with (acute) exacerbation (3) Acute respiratory failure with hypoxia: Status: Acute Category: Medical Code(s): J96.01 - Acute respiratory failure with hypoxia Plan Mr. Maharaj is a 64-year-old male current smoker greater than [id number] smoking history carries a diagnosis COPD on Symbicort inhaler at baseline presents hospital complaining worsening respiratory distress cough and productive phlegm increasing oxygen comments in pulmonary call for further evaluation and management. Patient complains of worsening respiratory distress along with cough and productive phlegm worsening wheezing along with upper respiratory symptoms. He has been using Symbicort on a scheduled basis. He does not have rescue inhaler/nebulizer therapy. CTA upon admission, no evidence of pulmonary embolism. No dense consolidative/airspace changes noted. Bilateral right greater than left micronodular opacities noted. Nasal MRSA PCR positive for RSV virus On examination severe respiratory distress, unable to speak in complete sentences. Bilateral diffuse wheezing noted. Also noted to have bilateral 2+ lower extremity edema, cardiology following for volume optimization Plan: Continue oxygen supplementation to maintain O2 saturation goal of 90% and above DuoNebs every 4 hours along with Pulmicort every 12 scheduled Continue ceftriaxone and doxycycline pending sputum culture results Follow-up with sputum Gram stain AFB fungal stain and cultures # For thw noted micronodular opacities follow-up with infectious workup and further determine the need for bronchoscopy as an outpatient basis
[2024-07-13] MEDS: clonazePAM 1MG TABLET 1 MG PO (14:08)
--- NOTE | 2024-07-13 14:36 | P.PN_ITS ---
Subjective *Date: 07/13/24 *Time: 14:36 Exam Data for Last 24 hours Vital signs and Labs for Last 24 Hours: Temp Pulse Resp BP Pulse Ox O2 Del Method O2 Flow Rate 98.3 F 88 20 137/66 93 L Nasal Cannula 4 07/13/24 12:20 07/13/24 12:54 07/13/24 12:20 07/13/24 12:20 07/13/24 12:20 07/13/24 12:20 07/13/24 12:20 Laboratory Results - last 24 hr 07/12/24 21:00: SARS-CoV-2 (PCR) Not detected, Influenza A Untype (PCR) Not detected, Influenza Type B (PCR) Not detected 07/12/24 21:06: WBC 11.3 H, RBC 3.87 L, Hgb 13.7 L, Hct 41.2 L, MCV 106.6 H, MCH 35.5 H, MCHC 33.3, RDW 14.5, Plt Count 344, MPV 7.5, Neut % (Auto) 81.1 H, Lymph % (Auto) 9.9 L, [place] % (Auto) 8.3, Eos % (Auto) 0.1, Baso % (Auto) 0.6, Neut # (Auto) 9.1 H, Lymph # (Auto) 1.1, [place] # (Auto) 0.9, Eos # (Auto) 0.0, Baso # (Auto) 0.1, PT 10.1, INR 0.89 L, Sodium 136, Potassium 3.7, Chloride 108 H, Carbon Dioxide 26, Anion Gap 5.7, BUN 18, Creatinine 1.00, Estimated Creat Clear 75, Estimated GFR 75, Est GFR ( Amer) 90, Glucose 129 H, Calcium 9.4, Magnesium 1.9, Total Bilirubin 0.4, AST 46, ALT 36, Alkaline Phosphatase 93, Troponin I 0.01, Total Protein 7.0, Albumin 4.1, Globulin 2.9, Albumin/Globulin Ratio 1.4, Procalcitonin 0.063, HIV 1&2 Antibody Rapid Nonreactive 07/12/24 21:20: VBG pH 7.36, VBG pCO2 43.3, VBG pO2 59.1 H, VBG HCO3 24.1, VBG Total CO2 25.4, VBG O2 Saturation 88.3 H, VBG Base Excess -1.3, VBG Lactic Acid 2.8 H 07/13/24 00:36: Troponin I < 0.01 07/13/24 00:42: Lactate 1.1 07/13/24 01:56: Chlamy pneumoniae PCR Not detected, Adenovirus (PCR) Not detected, B. pertussis DNA (PCR) Not detected, Coronavirus OC43 (PCR) Not detected, Coronavirus HKU1 (PCR) Not detected, Coronavirus 229E (PCR) Not detected, SARS-CoV-2 (PCR) Not detected, Coronavirus NL63 (PCR) Not detected, Human Metapneumovir PCR Not detected, Influenza A (H1) PCR Not detected, Influ A (H1N1/) PCR Not detected, Influenza A (H3) PCR Not detected, Influenza Type A (PCR) Not detected, Influenza Type B (PCR) Not detected, M. pneumoniae (PCR) Not detected, Parainfluenza 1 (PCR) Not detected, Parainfluenza 2 (PCR) Not detected, Parainfluenza 3 (PCR) Not detected, Parainfluenza 4 (PCR) Not detected, RSV (PCR) Detected A, Entero/Rhino (PCR) Not detected 07/13/24 03:45: Troponin I < 0.01 07/13/24 06:02: NT-Pro-B Natriuret Pep 550 H 07/13/24 09:36: Troponin I < 0.01 I & O for Last 24 hours: Intake & Output 07/10/24 07/11/24 07/12/24 07/13/24 23:59 23:59 23:59 23:59 Intake Total 400 / 400 Output Total 0 / 0 Balance 400 / 400 Weight 142.428 kg 142.428 kg Microbiology Reports for the Last 24 Hours: Microbiology 07/13/24 10:20 Sputum - Expectorated Sputum SE Preparation - Final Assessment and Plan *Assessment and plan Plan This is a test area very good
--- NOTE | 2024-07-13 14:40 | EXP.EVENT.NO ---
Abe Maharaj is a 64-year-old male with a medical history significant for COPD not on home oxygen, HFpEF admitted for acute hypoxic respiratory failure secondary to COPD and HFpEF exacerbation. #Acute hypoxic respiratory failure #COPD exacerbation #HFpEF exacerbation #RSV infection ? Continues to have increased work of breathing, requires 4 L nasal cannula. Baseline no oxygen. ? DuoNebs every 4 hours, started Pulmicort twice daily. ? Switched IV Solu-Medrol 40 mg to daily. ? Ceftriaxone, doxycycline day 1. Can likely be weaned to just doxycycline on discharge. ? Cardiology was consulted, started IV Lasix 40 mg twice daily. BNP slightly elevated 550. Patient states his legs have been more swollen recently. - Pulmonolgy assisting with care. ? Follow-up ECHO. ? Follow-up renal function. Rest of plan outlined in H&P from today.
[2024-07-13] MEDS: BUDESONIDE 0.5MG/2ML NEB 0.5 MG IH (18:50)
[2024-07-13] MEDS: FINASTERIDE 5MG TABLET 5 MG PO (20:18)
[2024-07-13] MEDS: RANOLAZINE 1000 MG 1 EACH PO (20:19)
[2024-07-13] MEDS: PAT OWN MED ***METOPROLOL SUCCINATE XL 100MG 100 MG PO (20:19)
[2024-07-13] MEDS: PAT OWN MED ***LAMOTRIGINE 150 MG 1 EACH PO (20:20)
[2024-07-13] MEDS: ISOSORBIDE MONO 60 MG PO (20:20)
[2024-07-13] MEDS: PAT OWN MED ***PANTOPRAZOLE 40MG 40 MG PO (20:21)
[2024-07-13] MEDS: PAT OWN MED ***TAMSULOSIN 0.4MG 0.4 MG PO (20:21)
[2024-07-13] MEDS: ATORVASTATIN 80 MG 1 EACH PO (20:22)
[2024-07-14] VITALS (14 sets, daily range): BP systolic 109–129; BP diastolic 52–70; PULSE 70–120; RESP 14–22; TEMP 36.6–36.9; O2SAT 92–95; BMI 44.9
[2024-07-14] MEDS: IPRATROPIUM/ALBUTEROL 3 ML NEB IH ×6 (01:03→22:10)
[2024-07-14] MEDS: DOXYCYCLINE HYCL 100 MG TABLET PO ×2 (01:42→13:52)
[2024-07-14] MEDS: CEFTRIAXONE SODIUM 1 GM in 0.9 % SODIUM CHLORIDE 50 ML IV (01:42)
[2024-07-14] MEDS: clonazePAM 1MG TABLET 1 MG PO ×3 (03:22→21:28)
[2024-07-14 04:13] LABS: Alanine Aminotransferase 32 U/L (12-78); Albumin Level 3.6 g/dl (3.5-5.0); Alkaline Phosphatase 82 U/L (38-126); Aspartate Amino Transferase 42 U/L (17-59); Basophils # 0.1 K/mm3 (0-0.2); Basophils % 0.5 % (0.1-2.0); Bilirubin,Direct 0.3 mg/dl (0.0-0.4); Bilirubin,Total 0.3 mg/dl (0.2-1.3); Blood Urea Nitrogen 22 mg/dl (9-20); Calcium 8.7 mg/dl (8.4-10.2); Carbon Dioxide 32 mmol/L (22.0-30.0); Chloride 103 mmol/L (98-107); Chol/HDL Ratio 3.5 (1-3.5); Cholesterol 129 mg/dl (140-200); Creatinine Clearance Estimated 75 mL/min (50-200); Eosinophils % 0.1 % (0.1-12.0); Estimated Glomerular Filt Rate 75 ml/min (>60); GFR (African American) 90 ML/MIN (>60); Glucose 114 mg/dl (74-100); HDL Cholesterol 37 mg/dl (40-60); Hematocrit 40.6 % (42.0-52.0); Hemoglobin 13.1 g/dL (14.1-18.0); Lymphocytes % 7.2 % (10-50); Mean Corpuscular HGB Conc 32.2 g/dL (31.8-35.4); Mean Corpuscular Hemoglobin 34.5 pg (27.0-31.2); Mean Corpuscular Volume 106.9 fl (80-94); Mean Platelet Volume 7.7 fl (7.4-10.4); Monocytes # 1.3 K/mm3 (0.1-1.0); Monocytes % 9.4 % (1.7-9.3); Neutrophils # 11.3 K/mm3 (1.8-7.8); Neutrophils % 82.8 % (37.0-80.0); Platelet Count 335 K/mm3 (142-424); Red Cell Distribution Width 14.5 % (11.5-17.5); Sodium 138 mmol/L (136-145); Total Protein,Serum 6.1 g/dl (6.3-8.2); Triglycerides 99 mg/dl (30-150); VLDL Cholesterol 20 mg/dL (0-40); White Blood Count 13.7 K/mm3 (4.8-10.8)
[2024-07-14 04:24] LABS: Direct LDL Cholesterol 68.61 mg/dL (100-129)
[2024-07-14 04:31] LABS: Anion Gap 6.6 mEq/L (5-15); Potassium 3.6 mmoL/L (3.5-5.1)
[2024-07-14 04:43] LABS: NT Pro Brain Natriuretic Pep. 1430 pg/mL (0-125)
--- NOTE | 2024-07-14 05:07 | PC.NURSE ---
Patient has rested intermittently this shift. Patient had no c/o of pain. Increased anxiety x1 this shift, medicated per MAR with relief. Patient remains on 2L O2 with O2 sats >90%. Call light within reach.
[2024-07-14] MEDS: BUDESONIDE 0.5MG/2ML NEB 0.5 MG IH ×2 (06:05→18:47)
[2024-07-14 06:11] LABS: HCV Ab Non Reactive (Non Reactive)
[2024-07-14] MEDS: ISOSORBIDE MONO 60 MG PO ×2 (08:42→21:19)
[2024-07-14] MEDS: RANOLAZINE 1000 MG 1 EACH PO ×2 (08:42→21:19)
[2024-07-14] MEDS: PAT OWN MED ***LAMOTRIGINE 150 MG 1 EACH PO ×2 (08:43→21:19)
[2024-07-14] MEDS: PAT OWN MED ***GABAPENTIN 300MG 300 MG PO ×3 (08:45→21:19)
[2024-07-14] MEDS: METHOTREXATE 2.5 MG 20 MG PO (08:46)
[2024-07-14] MEDS: PAT OWN MED ***CLOPIDOGREL 75MG 75 MG PO (08:46)
[2024-07-14] MEDS: SPIRONOLACTONE 50 MG 1 EACH PO (08:47)
[2024-07-14] MEDS: AMLODIPINE 10 MG PO (08:47)
[2024-07-14] MEDS: FOLIC ACID 1 MG PO (08:48)
[2024-07-14] MEDS: FUROSEMIDE 100MG/10ML VIAL 80 MG IV (08:49)
[2024-07-14] MEDS: ASPIRIN EC 81MG TABLET 81 MG PO (08:49)
[2024-07-14] MEDS: METHYLPREDNISOLONE SOD SUCC 40MG VIAL 40 MG IV (08:49)
--- NOTE | 2024-07-14 09:48 | P.PN_ITS ---
Subjective *Date: 07/14/24 *Time: 12:52 Interval history: No acute respiratory vents overnight. Patient admits improving respiratory symptoms. Pulmonology Exam Inpatient Vital signs and Labs for Last 24 Hours: Temp Pulse Resp BP Pulse Ox O2 Del Method O2 Flow Rate 97.9 F 95 H 22 129/70 92 L Nasal Cannula 2 07/14/24 08:00 07/14/24 08:00 07/14/24 08:00 07/14/24 08:00 07/14/24 08:00 07/14/24 08:00 07/14/24 08:00 Laboratory Results - last 24 hr 07/12/24 21:06: Hepatitis C Antibody Non reactive 07/13/24 09:36: Troponin I < 0.01 07/14/24 03:55: WBC 13.7 H, RBC 3.80 L, Hgb 13.1 L, Hct 40.6 L, MCV 106.9 H, MCH 34.5 H, MCHC 32.2, RDW 14.5, Plt Count 335, MPV 7.7, Neut % (Auto) 82.8 H, Lymph % (Auto) 7.2 L, [place] % (Auto) 9.4 H, Eos % (Auto) 0.1, Baso % (Auto) 0.5, Neut # (Auto) 11.3 H, Lymph # (Auto) 1.0, [place] # (Auto) 1.3 H, Eos # (Auto) 0.0, Baso # (Auto) 0.1, Sodium 138, Potassium 3.6, Chloride 103, Carbon Dioxide 32 H, Anion Gap 6.6, BUN 22 H, Creatinine 1.00, Estimated Creat Clear 75, Estimated GFR 75, Est GFR ( Amer) 90, Glucose 114 H, Calcium 8.7, Total Bilirubin 0.3, Direct Bilirubin 0.3, Conjugated Bilirubin 0.0, Indirect Bilirubin 0.0, Uncon jugated Bilirubin 0.0, AST 42, ALT 32, Alkaline Phosphatase 82, NT-Pro-B Natriuret Pep 1430 H, Total Protein 6.1 L, Albumin 3.6 D, Triglycerides 99, Cholesterol 129 L, LDL Cholesterol Direct 68.61 L, VLDL Cholesterol 20, HDL Cholesterol 37 L, Cholesterol/HDL Ratio 3.5 Temp Pulse Resp BP Pulse Ox O2 Del Method O2 Flow Rate 98.3 F 88 20 137/66 93 L Nasal Cannula 4 07/13/24 12:20 07/13/24 12:54 07/13/24 12:20 07/13/24 12:20 07/13/24 12:20 07/13/24 12:20 07/13/24 12:20 Laboratory Results - last 24 hr 07/12/24 21:00: SARS-CoV-2 (PCR) Not detected, Influenza A Untype (PCR) Not detected, Influenza Type B (PCR) Not detected 07/12/24 21:06: WBC 11.3 H, RBC 3.87 L, Hgb 13.7 L, Hct 41.2 L, MCV 106.6 H, MCH 35.5 H, MCHC 33.3, RDW 14.5, Plt Count 344, MPV 7.5, Neut % (Auto) 81.1 H, Lymph % (Auto) 9.9 L, [place] % (Auto) 8.3, Eos % (Auto) 0.1, Baso % (Auto) 0.6, Neut # (Auto) 9.1 H, Lymph # (Auto) 1.1, [place] # (Auto) 0.9, Eos # (Auto) 0.0, Baso # (Auto) 0.1, PT 10.1, INR 0.89 L, Sodium 136, Potassium 3.7, Chloride 108 H, Carbon Dioxide 26, Anion Gap 5.7, BUN 18, Creatinine 1.00, Estimated Creat Clear 75, Estimated GFR 75, Est GFR ( Amer) 90, Glucose 129 H, Calcium 9.4, Magnesium 1.9, Total Bilirubin 0.4, AST 46, ALT 36, Alkaline Phosphatase 93, Troponin I 0.01, Total Protein 7.0, Albumin 4.1, Globulin 2.9, Albumin/Globulin Ratio 1.4, Procalcitonin 0.063, HIV 1&2 Antibody Rapid Nonreactive 07/12/24 21:20: VBG pH 7.36, VBG pCO2 43.3, VBG pO2 59.1 H, VBG HCO3 24.1, VBG Total CO2 25.4, VBG O2 Saturation 88.3 H, VBG Base Excess -1.3, VBG Lactic Acid 2.8 H 07/13/24 00:36: Troponin I < 0.01 07/13/24 00:42: Lactate 1.1 07/13/24 01:56: Chlamy pneumoniae PCR Not detected, Adenovirus (PCR) Not detect ed, B. pertussis DNA (PCR) Not detected, Coronavirus OC43 (PCR) Not detected, Coronavirus HKU1 (PCR) Not detected, Coronavirus 229E (PCR) Not detected, SARS-CoV-2 (PCR) Not detected, Coronavirus NL63 (PCR) Not detected, Human Metapneumovir PCR Not detected, Influenza A (H1) PCR Not detected, Influ A (H1N1/09) PCR Not detected, Influenza A (H3) PCR Not detected, Influenza Type A (PCR) Not detected, Influenza Type B (PCR) Not detected, M. pneumoniae (PCR) Not detected, Parainfluenza 1 (PCR) Not detected, Parainfluenza 2 (PCR) Not detected, Parainfluenza 3 (PCR) Not detected, Parainfluenza 4 (PCR) Not detected, RSV (PCR) Detected A, Entero/Rhino (PCR) Not detected 07/13/24 03:45: Troponin I < 0.01 07/13/24 06:02: NT-Pro-B Natriuret Pep 550 H 07/13/24 09:36: Troponin I < 0.01 I & O for Labs for Last 24 Hours: Intake & Output 07/11/24 07/12/24 07/13/24 07/14/24 23:59 23:59 23:59 23:59 Intake Total 880 / 880 760 / 760 Output Total 0 / 0 0 / 0 Balance 880 / 880 760 / 760 Weight 314 lb 314 lb 314 lb Intake & Output 07/10/24 07/11/24 07/12/24 07/13/24 23:59 23:59 23:59 23:59 Intake Total 400 / 400 Output Total 0 / 0 Balance 400 / 400 Weight 314 lb 314 lb Microbiology Reports for the Last 24 Hours: Microbiology 07/13/24 06:20 Sputum - Expectorated Sputum Gram Stain - Final 07/13/24 06:20 Sputum - Expectorated Sputum Sputum Culture - Preliminary 07/13/24 10:20 Sputum - Expectorated Sputum SE Preparation - Final Microbiology 07/13/24 10:20 Sputum - Expectorated Sputum SE Preparation - Final Constitutional: Present moderate distress Head: Present normocephalic and atraumatic ENT: Present normal exam, normal oropharynx and mucous membranes moist Neck: Present normal inspection and full ROM Respiratory: Present respiratory distress, wheezes, crackles and diminished air movement; Absent able to speak in complete sentences Cardiac: Present S1/S2, Tachycardia and radial pulses present GI: Present soft and distention; Absent tenderness or guarding Skin: Present intact; Absent cyanosis or jaundice Neuro: Present alert, awake and oriented x 3 Extremities: Present normal inspection and edema; Absent clubbing or cyanosis Psychiatric: Present normal affect and cooperative Assessment and Plan *Assessment and plan (1) Viral pneumonia: Status: Acute Category: Medical Code(s): J12.9 - Viral pneumonia, unspecified (2) COPD exacerbation: Status: Acute Category: Medical Code(s): J44.1 - Chronic obstructive pulmonary disease with (acute) exacerbation (3) Acute respiratory failure with hypoxia: Status: Acute Category: Medical Code(s): J96.01 - Acute respiratory failure with hypoxia Plan Mr. Maharaj is a 64-year-old male current smoker greater than [id number] smoking history, history of rheumatoid arthritis on methotrexate 20 mg weekly carries a diagnosis COPD on Symbicort inhaler at baseline presents hospital complaining worsening respiratory distress cough and productive phlegm increasing oxygen comments in pulmonary call for further evaluation and management. Patient complains of worsening respiratory distress along with cough and productive phlegm worsening wheezing along with upper respiratory symptoms. He has been using Symbicort on a scheduled basis. He does not have rescue inhaler/nebulizer therapy. CTA upon admission, no evidence of pulmonary embolism. No dense consolidative/airspace changes noted. Bilateral right greater than left micronodular opacities noted. Nasal MRSA PCR positive for RSV virus On initial examination severe respiratory distress, unable to speak in complete sentences. Bilateral diffuse wheezing noted. Also noted to have bilateral 2+ lower extremity edema, cardiology following for volume optimization Interval update: Afebrile. Hemodynamically stable. Slight worsening leukocytosis. Improving wheezing and oxygen requirements. Plan: Continue oxygen supplementation to maintain O2 saturation goal of 90% and above DuoNebs every 4 hours along with Pulmicort every 12 scheduled. Can be weaned to Trelegy 100 inhaler along with DuoNebs every 6 hours scheduled upon discharge. Continue ceftriaxone and doxycycline pending sputum culture results. Antibiotics can be weaned to cefdinir upon discharge Follow-up with final sputum Gram stain AFB fungal stain and cultures # For thw noted micronodular opacities follow-up with infectious workup and further determine the need for bronchoscopy as an outpatient basis
--- NOTE | 2024-07-14 11:14 | EXP.CARD.PN ---
Subjective Subjective Date: 07/14/24 Time: 09:00 Principal diagnosis: HFpEF, COPD Interval history: The patient was admitted to the hospital with acute on chronic HFpEF and COPD exacerbation. He has been diuresed with IV Lasix. This morning he states he is feeling better. His shortness of breath has improved. He denies any chest pain or pressure. He states his lower extremity edema has improved. He denies any fever, chills, nausea, vomiting, diarrhea. Exam Data for Last 24 hours Vital signs and Labs for Last 24 Hours: Temp Pulse Resp BP Pulse Ox O2 Del Method O2 Flow Rate 97.9 F 83 22 129/70 92 L Nasal Cannula 2 07/14/24 08:00 07/14/24 09:54 07/14/24 08:00 07/14/24 08:00 07/14/24 08:00 07/14/24 09:00 07/14/24 09:00 Laboratory Results - last 24 hr 07/12/24 21:06: Hepatitis C Antibody Non reactive 07/14/24 03:55: WBC 13.7 H, RBC 3.80 L, Hgb 13.1 L, Hct 40.6 L, MCV 106.9 H, MCH 34.5 H, MCHC 32.2, RDW 14.5, Plt Count 335, MPV 7.7, Neut % (Auto) 82.8 H, Lymph % (Auto) 7.2 L, [place] % (Auto) 9.4 H, Eos % (Auto) 0.1, Baso % (Auto) 0.5, Neut # (Auto) 11.3 H, Lymph # (Auto) 1.0, [place] # (Auto) 1.3 H, Eos # (Auto) 0.0, Baso # (Auto) 0.1, Sodium 138, Potassium 3.6, Chloride 103, Carbon Dioxide 32 H, Anion Gap 6.6, BUN 22 H, Creatinine 1.00, Estimated Creat Clear 75, Estimated GFR 75, Est GFR ( Amer) 90, Glucose 114 H, Calcium 8.7, Total Bilirubin 0.3, Direct Bilirubin 0.3, Conjugated Bilirubin 0.0, Indirect Bilirubin 0.0, Unconjugated Bilirubin 0.0, AST 42, ALT 32, Alkaline Phosphatase 82, NT-Pro-B Natriuret Pep 1430 H, Total Protein 6.1 L, Albumin 3.6 D, Triglycerides 99, Cholesterol 129 L, LDL Cholesterol Direct 68.61 L, VLDL Cholesterol 20, HDL Cholesterol 37 L, Cholesterol/HDL Ratio 3.5 I & O for Last 24 hours: Intake & Output 07/11/24 07/12/24 07/13/24 07/14/24 23:59 23:59 23:59 23:59 Intake Total 880 / 880 1240 / 1240 Output Total 0 / 0 0 / 0 Balance 880 / 880 1240 / 1240 Weight 314 lb 314 lb 314 lb Microbiology Reports for the Last 24 Hours: Microbiology 07/13/24 06:20 Sputum - Expectorated Sputum Gram Stain - Final 07/13/24 06:20 Sputum - Expectorated Sputum Sputum Culture - Preliminary 07/13/24 10:20 Sputum - Expectorated Sputum SE Preparation - Final Constitutional Constitutional: no acute distress and morbidly obese *Routine HEENT Exam Head: Present normocephalic and atraumatic ENT: Present mucous membranes moist *Routine Neck Exam Neck: Present supple, full ROM and normal carotid upstroke; Absent JVD, carotid bruit or lymphadenopathy *Routine Respiratory Exam Respiratory: Present CTA bilaterally, normal respiratory effort, able to speak in complete sentences and symmetric chest movement *Routine Cardiovascular Exam Cardiovascular: Present RRR, Normal S1 and Normal S2; Absent murmur or gallop *Routine Abdominal Exam Abdominal: Present soft and normoactive bowel sounds; Absent tenderness, distended or organomegaly *Routine Extremities Exam Extremities: Present edema, full ROM, pulses intact and normal capillary refill; Absent cyanosis or clubbing *Routine Skin Exam Skin: Present intact and warm; Absent erythema *Routine Neurological Exam Neurological: Present alert, oriented X3 and CN II-XII intact; Absent sensory deficit or motor deficit Routine Psychiatric Exam Psychiatric: Present normal affect Progress Note: A&P Assessment and plan (1) Acute on chronic heart failure with preserved ejection fraction (HFpEF): Status: Acute (2) SOBOE (shortness of breath on exertion): Status: Acute (3) Viral pneumonia: Status: Acute (4) COPD exacerbation: Status: Acute (5) Acute respiratory failure with hypoxia: Status: Acute (6) CAD (coronary artery disease): Status: Chronic (7) History of coronary artery stent placement: Status: Chronic (8) GERD (gastroesophageal reflux disease): Status: Chronic (9) HTN (hypertension): Status: Chronic (10) HLD (hyperlipidemia): Status: Chronic Assessment and Plan Assessment and Plan for All Diagnoses:: Plan: 1. The patient was admitted to the hospital due to shortness of breath and chest pain. The patient ruled out for an [place]. No plans for invasive left cardiac catheterization at this time. 2. The patient is likely having acute on chronic HFpEF. His BNP is elevated. The patient has been diuresed with IV Lasix. Will stop IV Lasix and put him on Lasix 80 mg p.o. twice daily. 3. Continue spironolactone for diuresis. 4. The patient is also being treated for COPD exacerbation. Will defer management of this to the hospitalist and pulmonology. 5. Echocardiogram shows normal ejection fraction no significant valve disease. 6. His blood pressure is well-controlled. 7. His LDL goal is less than 55. He is on a statin. His LDL is 68. 8. No further recommendations at this time from a cardiac standpoint. When the patient is medically cleared she can be discharged from a cardiac standpoint on the following cardiac medications: Amlodipine 10 mg daily, aspirin 81 mg daily, atorvastatin 80 mg daily, Plavix 75 mg daily, Lasix 80 mg p.o. twice daily, isosorbide mononitrate 60 mg p.o. twice daily, metoprolol succinate 100 mg p.o. nightly, spironolactone 50 mg daily. Thank you for the opportunity to help participate in the care of this patient. All recommendations and orders are per Dr. Michelle.
[2024-07-14] MEDS: hydrOXYzine pamoate 25MG CAPSULE 25 MG PO (12:29)
--- NOTE | 2024-07-14 13:13 | EXP.BH.CONS ---
History of Present Illness *Admission Date: 07/13/24 *Reason for visit:: depression *History of present illness: Interviewed patient in his room. -he was initially asleep in bed when I walked into room -easily woken up by calling his name He states that he wanted me to come and talk to him. -cause he can't stop crying -that he is afraid to ; and he has all this shit wrong with him -with his breathing and his heart -he states that his isn't there at home to help him -and he is just lonely -that he doesn't really feel any better since being here either He states that the last time he was in my office he was doing some better. -but the holidays are coming up and he doesn't want to be here -that everything here (in town) reminds him of his -he states that he has booked himself a hotel room in [place] to get out of here for the holidays -reports he is going by himself -for 7 days; from the thru the -then coming home -he states that he feels he is a burden to his son; and that he is not sure they want him at their [facility] -cause he is not in the spirit -he states that he is just not sure anymore I did talk to him about medicines. -he states that there is nothing I can do to help him -just talking helps him -but he states 'I have to deal as best I can' -he states that his anxiety is better at home -but he smokes THC to cope He fell asleep several times in the interview. -the nurse had given him something for anxiety about 30 minutes prior -he states that he just can't keep his eyes open He denies any SI. -he states that he is scared to -he wants to live [facility] Disclaimer: The information contained in this section may have been updated after the patient was seen, as this information can be updated by other users. Medical History (Updated 07/13/24 @ 13:31 by Alonzo Lea MD) Acute and chronic respiratory failure with hypoxia Viral pneumonia Grief SOBOE (shortness of breath on exertion) Acute on chronic heart failure with preserved ejection fraction (HFpEF) Deviated nasal septum Macular degeneration CHF (congestive heart failure) COPD exacerbation COPD (chronic obstructive pulmonary disease) Major depressive disorder Callus Abnormal nuclear cardiac imaging test Angina pectoris Hypertension Hyperlipidemia Abnormal result of cardiovascular function study Tachycardia Unstable angina Dizziness GERD (gastroesophageal reflux disease) Abnormal cardiovascular stress test Typical angina Tobacco dependence syndrome Abnormal EKG CAD (coronary artery disease) Edema Dyspnea Chest pain Surgical History (Updated 07/13/24 @ 06:19 by Aissatou Coleman RN) History of hernia surgery H/O removal of cyst History of cardiac cath H/O heart artery stent History of coronary artery stent placement Family History Other No significant family history Social History (Updated 07/13/24 @ 02:24 by Aissatou Coleman RN) Smoking Status: Current every day smoker tobacco type: cigarettes packs per day: 1 and pipe alcohol intake: current alcohol intake frequency: a few times a month substance use type: former substance user and marijuana counseling given: No (patient refused) counseling provided: none current occupational status: disabled Travel in the last 8 weeks: None household members: children housing: house marital status: chcf: No caffeine: Yes physical activity: none Have you lived/traveled outside [place] in past 30 days?: No Contact w/someone who lives/traveled outside US past 30 days?: No Exposure to someone with infectious disease in past 14 days?: No Do you have a fever (greater than 100.4 F or 38 C)?: No Have you tested positive for COVID-19: No Exposed to someone with COVID-19 in past 14 days?: No Do you have a sore throat?: No Do you have a cough?: No Do you have any weakness?: No Do you have any diarrhea?: No Are you experiencing any unusual bleeding?: No Do you have any muscle aches/pain?: No Do you have any abdominal pain?: No Are you experiencing loss of taste or smell?: No Review of Systems Review of Systems Review of systems:: other *Neurologic Neurologic: Reports system reviewed and no additional complaints, except as documented Meds Home Medications and Allergies Home Medications ?Medication ?Instructions ?Recorded ?Confirmed ?Type albuterol sulfate 90 mcg/actuation 2 puff inhalation QIDP PRN 10/27/18 07/13/24 History aerosol inhaler Shortness Of Breath 25 days #9 grams budesonide-formoterol HFA 160 2 puff inhalation BID 30 days #10 10/27/18 07/13/24 History mcg-4.5 mcg/actuation aerosol grams inhaler tamsulosin 0.4 mg capsule 0.4 mg PO HS 90 days #90 caps 10/27/18 07/13/24 History gabapentin 300 mg capsule 300 mg PO TID 90 days #270 caps 10/10/19 07/13/24 History folic acid 1 mg tablet 1 mg PO DAILY 10/26/22 07/13/24 History methotrexate sodium 2.5 mg tablet 20 mg PO WEEKLY 10/26/22 07/13/24 History atorvastatin 80 mg tablet 80 mg PO HS 03/12/24 07/13/24 History nitroglycerin 0.4 mg sublingual 0.4 mg sublingual Q5MINP PRN Chest 03/12/24 07/13/24 History tablet Pain pantoprazole 40 mg tablet,delayed 40 mg PO DAILY 03/12/24 07/13/24 History release potassium chloride 10 mEq 10 meq PO DAILY 03/12/24 07/13/24 History tablet,extended release cholecalciferol (vitamin D3) 125 5,000 unit PO DAILY 04/17/24 07/13/24 History mcg (5,000 unit) tablet (Vitamin D3) clopidogrel 75 mg tablet 75 mg PO DAILY 04/17/24 07/13/24 History dutasteride 0.5 mg capsule 0.5 mg PO DAILY 04/17/24 07/13/24 History lamotrigine 150 mg tablet 150 mg PO BID 04/17/24 07/13/24 History ranolazine 1,000 mg 1,000 mg PO BID 30 days #60 tabs 04/17/24 07/13/24 Rx tablet,extended release,12 hr vit C 250 mg-vit E 90 mg-zinc 40 1 cap PO BID 04/17/24 07/13/24 History mg-copper 1 ce-ubynhq-kudonx capsule (PreserVision AREDS-2) amlodipine 10 mg tablet (Norvasc) 10 mg PO DAILY #30 tabs 05/03/24 07/13/24 Rx brexpiprazole 1 mg tablet (Rexulti) 1 mg PO DAILY #30 tabs 10/04/24 12/12/24 Rx spironolactone 50 mg tablet 50 mg PO DAILY #90 tabs 06/16/24 07/13/24 Rx aspirin 81 mg tablet,delayed 81 mg PO DAILY 07/13/24 07/13/24 History release furosemide 40 mg tablet 80 mg PO DAILY 07/13/24 07/13/24 History isosorbide mononitrate 60 mg 60 mg PO BID 07/13/24 07/13/24 History tablet,extended release 24 hr methocarbamol 500 mg tablet 500 mg PO Q8HP PRN muscle spasm 07/13/24 07/13/24 History metoprolol succinate 100 mg 100 mg PO HS 07/13/24 07/13/24 History tablet,extended release 24 hr trazodone 50 mg tablet 50 mg PO HSP PRN Insomnia 07/13/24 07/13/24 History vibegron 75 mg tablet (Gemtesa) 75 mg PO HS 07/13/24 07/13/24 History New Prescriptions to Start Prescriptions: Allergies Allergy/AdvReac Type Severity Reaction Status Date / Time nickel (NICKEL) Allergy Unknown I-RASH Verified 06/26/24 14:34 quetiapine (From SEROQUEL) Allergy Unknown I-RASH Verified 06/26/24 14:34 NSAIDS (Non-Steroidal AdvReac Verified 06/26/24 14:34 Anti-Inflamma Assessment and Plan *Assessment and plan (1) Grief: Status: Acute Category: Medical Code(s): F43.21 - Adjustment disorder with depressed mood (2) Major depressive disorder: Status: Acute Category: Medical Code(s): F32.9 - Major depressive disorder, single episode, unspecified Plan Consider increasing Rexulti to 2mg daily. -he had a significant improvement in mood when this was initially started. Follow-up in outpatient office when he is discharged
--- NOTE | 2024-07-14 15:19 | PC.NURSE ---
pt 93% on room air at rest. pt o2 sat does drop when ambulating. pt has been anxious today and has been requiring PRN anxiety medication. pt has had no other complaints throughout shift. pt has been ambulating with o2 on to bathroom w/ standby assistance. pt has had significant urine output and has been receiving diuretics . behavioral health consult was completed today per patient request. no new orders at this time. call light within reach.
[2024-07-14] MEDS: FUROSEMIDE 80 MG TABLET PO (16:02)
--- NOTE | 2024-07-14 16:18 | PC.NURSE ---
PT PLACED ON 2l NC D/T PT O2 SAT DROPPING TO 83% WHILE SLEEPING
--- NOTE | 2024-07-14 18:29 | P.PN_ITS ---
Subjective *Date: 07/14/24 *Time: 18:29 Interval history: States he is feeling anxious today. Very jittery. Would like to see behavioral health. Consult placed for Ara Pearson. On 2 L on rounds. No nausea or vomiting. Tolerating p.o. intake. Afebrile. Still has prominent cough Medical Exam Vital signs and Labs for Last 24 Hours: Vital Signs Temp Pulse Pulse Resp BP Pulse Ox O2 Del Method 07/14/24 16:38 Nasal Cannula 07/14/24 16:00 80 07/14/24 16:00 98.4 F 75 20 118/56 L 94 L Nasal Cannula 07/14/24 15:00 Room Air 07/14/24 13:29 84 07/14/24 13:29 80 07/14/24 12:46 Nasal Cannula 07/14/24 12:00 120 H 07/14/24 12:00 97.9 F 89 22 109/52 L 93 L Nasal Cannula 07/14/24 11:00 Nasal Cannula 07/14/24 09:54 83 07/14/24 09:54 80 07/14/24 09:00 Nasal Cannula 07/14/24 08:00 100 H 07/14/24 08:00 Nasal Cannula 07/14/24 08:00 97.9 F 95 H 22 129/70 92 L Nasal Cannula 07/14/24 06:59 Nasal Cannula 07/14/24 06:05 70 07/14/24 06:05 70 07/14/24 06:05 93 L Nasal Cannula 07/14/24 05:00 Nasal Cannula 07/14/24 04:00 80 07/14/24 03:00 Nasal Cannula 07/14/24 01:03 81 07/14/24 01:03 86 07/14/24 01:00 Nasal Cannula 07/14/24 00:00 98.4 F 76 14 121/58 L 94 L Nasal Cannula 07/14/24 00:00 80 07/13/24 23:00 Nasal Cannula 07/13/24 22:05 93 H 07/13/24 22:05 96 H 07/13/24 21:00 Nasal Cannula 07/13/24 20:00 100 H 07/13/24 20:00 Nasal Cannula 07/13/24 20:00 98.3 F 105 H 22 144/69 H 94 L Nasal Cannula 07/13/24 18:50 82 07/13/24 18:50 86 07/13/24 18:50 91 L Nasal Cannula 07/13/24 18:38 Nasal Cannula O2 Flow Rate 07/14/24 16:38 2 07/14/24 16:00 07/14/24 16:00 2 07/14/24 15:00 07/14/24 13:29 07/14/24 13:29 07/14/24 12:46 2 07/14/24 12:00 07/14/24 12:00 2 07/14/24 11:00 2 07/14/24 09:54 07/14/24 09:54 07/14/24 09:00 2 07/14/24 08:00 07/14/24 08:00 2 07/14/24 08:00 2 07/14/24 06:59 2 07/14/24 06:05 07/14/24 06:05 07/14/24 06:05 2.5 07/14/24 05:00 2 07/14/24 04:00 07/14/24 03:00 2 07/14/24 01:03 07/14/24 01:03 07/14/24 01:00 2 07/14/24 00:00 2 07/14/24 00:00 07/13/24 23:00 2 07/13/24 22:05 07/13/24 22:05 07/13/24 21:00 2 07/13/24 20:00 07/13/24 20:00 2 07/13/24 20:00 2 07/13/24 18:50 07/13/24 18:50 07/13/24 18:50 2 07/13/24 18:38 2 Intake and Output 07/14/24 07/14/24 07/14/24 07:59 15:59 23:59 Intake Total 1959 480 1959 Output Total 0 / 350 350 / 350 Balance 1609 480 / 161 Intake: Intake, Oral Amount 1429 480 1909 Intake, Total IV Amount 50 / 50 Ceftriaxone Sodium 1 gm In 0.9 50 / 50 % Sodium Chloride 50 ml @ 100 mls/hr IV Q24H [facility] Rx#:[id number] Output: Output, Urine Amount 0 / 350 350 / 350 Other: Number of Unmeasured Voids 1 1 Weight 142.428 kg Patient Weight 07/14/24 23:59 Weight 142.428 kg Laboratory Results - last 24 hr 07/12/24 21:06: Hepatitis C Antibody Non reactive 07/14/24 03:55: WBC 13.7 H, RBC 3.80 L, Hgb 13.1 L, Hct 40.6 L, MCV 106.9 H, MCH 34.5 H, MCHC 32.2, RDW 14.5, Plt Count 335, MPV 7.7, Neut % (Auto) 82.8 H, Lymph % (Auto) 7.2 L, [place] % (Auto) 9.4 H, Eos % (Auto) 0.1, Baso % (Auto) 0.5, Neut # (Auto) 11.3 H, Lymph # (Auto) 1.0, [place] # (Auto) 1.3 H, Eos # (Auto) 0.0, Baso # (Auto) 0.1, Sodium 138, Potassium 3.6, Chloride 103, Carbon Dioxide 32 H, Anion Gap 6.6, BUN 22 H, Creatinine 1.00, Estimated Creat Clear 75, Estimated GFR 75, Est GFR ( Amer) 90, Glucose 114 H, Calcium 8.7, Total Bilirubin 0.3, Direct Bilirubin 0.3, Conjugated Bilirubin 0.0, Indirect Bilirubin 0.0, Unconjugated Bilirubin 0.0, AST 42, ALT 32, Alkaline Phosphatase 82, NT-Pro-B Natriuret Pep 1430 H, Total Protein 6.1 L, Albumin 3.6 D, Triglycerides 99, Cholesterol 129 L, LDL Cholesterol Direct 68.61 L, VLDL Cholesterol 20, HDL Cholesterol 37 L, Cholesterol/HDL Ratio 3.5 I & O for Labs for Last 24 Hours: Intake & Output 07/11/24 07/12/24 07/13/24 07/14/24 23:59 23:59 23:59 23:59 Intake Total 880 / 880 1960 / 1960 Output Total 0 / 0 350 / 350 Balance 880 / 880 1610 / 1610 Weight 142.428 kg 142.428 kg 142.428 kg Microbiology Reports for the Last 24 Hours: Microbiology 07/13/24 06:20 Sputum - Expectorated Sputum Gram Stain - Final 07/13/24 06:20 Sputum - Expectorated Sputum Sputum Culture - Preliminary Constitutional: Present no acute distress, morbidly obese, chronically ill appearing and cooperative Head: Present atraumatic and normocephalic Respiratory: Present prolonged expiratory phase, rhonchi, wheezes (improved) and normal respiratory effort; Absent crackles Cardiac: Present Reg Rate and Rhythm GI: Present soft and normal bowel sounds; Absent distention or tenderness Extremities: Present normal inspection and full ROM Skin: Present intact; Absent erythema Neuro: Present Grossly Intact, alert, awake, oriented x 3 and moves all ex tremities Assessment and Plan *Assessment and plan (1) Acute respiratory failure with hypoxia: Status: Acute Category: Medical Code(s): J96.01 - Acute respiratory failure with hypoxia (2) COPD exacerbation: Status: Acute Category: Medical Code(s): J44.1 - Chronic obstructive pulmonary disease with (acute) exacerbation (3) Arthritis of foot, degenerative: Status: Acute Qualifiers: Osteoarthritis type: primary Laterality: bilateral Qualified Code(s): M19.071 - Primary osteoarthritis, right ankle and foot; M19.072 - Primary osteoarthritis, left ankle and foot Category: Medical Code(s): M19.079 - Primary osteoarthritis, unspecified ankle and foot (4) Chest pain: Status: Chronic Qualifiers: Chest pain type: other chest pain Qualified Code(s): R07.89 - Other chest pain Category: Medical Code(s): R07.9 - Chest pain, unspecified (5) BPH (benign prostatic hyperplasia): Status: Chronic Qualifiers: Lower urinary tract symptom detail: unspecified Category: Medical Code(s): N40.0 - Benign prostatic hyperplasia without lower urinary tract symptoms (6) HLD (hyperlipidemia): Status: Chronic Qualifiers: Hyperlipidemia type: mixed hyperlipidemia Qualified Code(s): E78.2 - Mixed hyperlipidemia Category: Medical Code(s): E78.5 - Hyperlipidemia, unspecified (7) HTN (hypertension): Status: Chronic Qualifiers: Hypertension type: essential hypertension Qualified Code(s): I10 - Ess ential (primary) hypertension Category: Medical Code(s): I10 - Essential (primary) hypertension (8) History of coronary artery stent placement: Status: Chronic Category: Surgical Code(s): Z95.5 - Presence of coronary angioplasty implant and graft Plan 64-year-old with past medical history COPD not on home oxygen, CAD with 10 stents, myocardial infarction x 4, recurrent angina, hypertension, hyperlipidemia, BPH, rheumatoid arthritis on methotrexate, obesity. Patient presents with 7 days of SOB, PATEL, malaise. Status post PCP appointment Wednesday given doxycycline/steroid prescriptions. Patient admitted for COPD exacerbation failing outpatient management. COPD exacerbation treated in emergency room for rounds DuoNebs, magnesium sulfate, and IV steroids without success. Showing slight improvement today. Anticipate discharge tomorrow. Continues to require inpatient management. Problems as listed below: COPD exacerbation failing outpatient/GA management -Respiratory panel positive for RSV. -Pulmonology consulted, assisting with care. Discussed case today,Recommend continuing oxygen supplementation as needed for goal sats greater 90%. Currently on 2 L. Continue DuoNebs, weaned to every 6 hours. Initiate Trelegy inhaler. Continue ceftriaxone and doxycycline pending sputum culture results. Can wean to cefdinir at discharge. -Repeat CBC, CMP, magnesium ordered for the morning. White count elevated to 13.7 today, hemoglobin 13.1. Concern for component of steroids. Kidney function at baseline with BUN 22, creatinine 1.0 CAD with chronic chest discomfort: CHF with exacerbation ? Admits to 10 stents. Denies recurrent sleeping, PND. States he suffers from chronic orthopnea. Check serial troponins, will also order serial BMPs during hospitalization. Consult cardiology for evaluation. Patient likely suffering from chronic angina but will rule out ACS during this hospitalization. Aspirin 81 mg p.o. daily. Plavix 75 mg p.o. daily. Imdur 60 mg p.o. twice daily. Metoprolol succinate 100 mg p.o. nightly. Ranexa 100 mg p.o. twice daily -Cardiology evaluated patient today, no significant change in regimen. Continue diuretics twice daily given elevated BNP at 1400 BPH: Tamsulosin 0.4 p.o. nightly Hypertension: Amlodipine 10 mg p.o. daily, 10 mg IV hydralazine every 6 as needed SBP greater than 160. PPx Lovenox 40 mg subcu daily FEN: Cardiac diet Full code
[2024-07-14] MEDS: PAT OWN MED ***PANTOPRAZOLE 40MG 40 MG PO (21:18)
[2024-07-14] MEDS: FINASTERIDE 5MG TABLET 5 MG PO (21:19)
[2024-07-14] MEDS: PAT OWN MED ***METOPROLOL SUCCINATE XL 100MG 100 MG PO (21:19)
[2024-07-14] MEDS: TRAZODONE 50 MG PO (21:19)
[2024-07-14] MEDS: ATORVASTATIN 80 MG 1 EACH PO (21:19)
[2024-07-14] MEDS: PAT OWN MED ***TAMSULOSIN 0.4MG 0.4 MG PO (21:19)
[2024-07-15] VITALS: PULSE 90
[2024-07-15] MEDS: CEFTRIAXONE SODIUM 1 GM in 0.9 % SODIUM CHLORIDE 50 ML IV (02:17)
[2024-07-15] MEDS: DOXYCYCLINE HYCL 100 MG TABLET PO (02:17)
[2024-07-15 04:00] VITALS: BP 105/67; PULSE 70; PULSE 76; RESP 14; TEMP 37; O2SAT 95; BMI 44.9
--- NOTE | 2024-07-15 04:46 | PC.NURSE ---
Patient has rested well this shift. Tolerating 2L NC with o2 stats >90%. Antibiotics administered per SEP this morning. Patient appeared anxious upon evening exam and was given PRN Clonazepam and Trazodone per patients request. Wheezing noted when auscultating lung sounds. Patient has used call light to ask for help to the restroom this shift due to unsteadiness. Ambulated with standby assist. Call light within reach.
[2024-07-15 07:46] LABS: Basophils % 0.4 % (0.1-2.0); Eosinophils % 0.3 % (0.1-12.0); Hematocrit 41.8 % (42.0-52.0); Lymphocytes # 0.7 K/mm3 (0.7-4.5); Lymphocytes % 9.4 % (10-50); Mean Corpuscular HGB Conc 33.4 g/dL (31.8-35.4); Mean Corpuscular Hemoglobin 34.8 pg (27.0-31.2); Mean Corpuscular Volume 104.1 fl (80-94); Mean Platelet Volume 7.6 fl (7.4-10.4); Monocytes # 0.7 K/mm3 (0.1-1.0); Monocytes % 9.1 % (1.7-9.3); Neutrophils % 80.8 % (37.0-80.0); Platelet Count 329 K/mm3 (142-424); Red Blood Count 4.02 M/mm3 (4.60-6.20); Red Cell Distribution Width 14.4 % (11.5-17.5); White Blood Count 7.4 K/mm3 (4.8-10.8)
[2024-07-15 07:56] LABS: Hemoglobin A1C 5.3 % (4.0-6.0)
--- NOTE | 2024-07-15 07:56 | EXP.DC.SUM ---
General Admission date:: 07/13/24 Discharge date: 07/15/24 HPI HPI HPI: 64-year-old with past medical history COPD not on home oxygen, CAD with 10 stents, myocardial infarction x 4, recurrent angina, hypertension, hyperlipidemia, BPH, rheumatoid arthritis on methotrexate, obesity. Patient presents with 7 days of SOB, PATEL, malaise. Status post PCP appointment Wednesday given doxycycline/steroid prescriptions. Patient admitted for COPD exacerbation failing outpatient management. COPD exacerbation treated in emergency room for rounds DuoNebs, magnesium sulfate, and IV steroids without success. Patient on 2 L nasal cannula in emergency room, and states he does not use oxygen at home. Reports chest discomfort since 2006 off-and-on. States chest discomfort has been worse recently. Admits to history of CHF, and states he takes Lasix 40 mg p.o. twice daily daily. 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 Last appointment with Dr. Sky 1 month ago. Admits to fevers on Wednesday. States he has been suffering for chills for days. Admits to 24 hours of malaise. Denies lower extremity swelling, PND, but states she suffers from chronic orthopnea at baseline. Hospital Course Hospital Course Hospital Course: 64-year-old with past medical history COPD not on home oxygen, CAD with 10 stents, myocardial infarction x 4, recurrent angina, hypertension, hyperlipidemia, BPH, rheumatoid arthritis on methotrexate, obesity. Patient presents with 7 days of SOB, PATEL, malaise. Status post PCP appointment Wednesday given doxycycline/steroid prescriptions. Patient admitted for COPD exacerbation failing outpatient management. COPD exacerbation treated in emergency room for rounds DuoNebs, magnesium sulfate, and IV steroids without success. Showed gradual improvement during admission. Weaned to room air. Stable to discharge home with close follow-up with primary care as an outpatient. Problems addressed as follows: COPD exacerbation failing outpatient/DE management -Respiratory panel positive for RSV. Pulmonology consulted, assisted with care. Recommend continuing oxygen supplementation as needed for goal sats greater 90%. Able to wean to room air by day of discharge. Treated with DuoNebs every 6 hours. Initiated on Trelegy. Treated with ceftriaxone and doxycycline during admission. Will wean to cefdinir to complete antibiotic course at discharge. No indication to continue doxycycline. Labs showed normalization white count of 7.4. Kidney function and electrolytes normal. Stable to discharge home. CAD with chronic chest discomfort: CHF with exacerbation ? Admits to 10 stents. Denies recurrent sleeping, PND. States he suffers from chronic orthopnea. Check serial troponins, will also order serial BMPs during hospitalization. Consult cardiology for evaluation. Patient likely suffering from chronic angina but will rule out ACS during this hospitalization. Aspirin 81 mg p.o. daily. Plavix 75 mg p.o. daily. Imdur 60 mg p.o. twice daily. Metoprolol succinate 100 mg p.o. nightly. Ranexa 100 mg p.o. twice daily. Cardiology evaluated patient during admission, NO significant change in regimen. Continue diuretics twice daily given elevated BNP at 1400 BPH: Tamsulosin 0.4 p.o. nightly Hypertension: Amlodipine 10 mg p.o. daily, 10 mg IV hydralazine every 6 as needed SBP greater than 160. Exam Data for Last 24 hours Vital signs and Labs for Last 24 Hours: Temp Pulse Resp BP Pulse Ox O2 Del Method O2 Flow Rate 98.6 F 76 14 105/67 L 95 Nasal Cannula 2 07/15/24 04:00 07/15/24 04:00 07/15/24 04:00 07/15/24 04:00 07/15/24 04:00 07/15/24 06:48 07/15/24 06:48 Laboratory Results - last 24 hr 07/15/24 07:30: WBC 7.4 D, RBC 4.02 L, Hgb 14.0 L, Hct 41.8 L, MCV 104.1 H, MCH 34.8 H, MCHC 33.4, RDW 14.4, Plt Count 329, MPV 7.6, Neut % (Auto) 80.8 H, Lymph % (Auto) 9.4 L, [place] % (Auto) 9.1, Eos % (Auto) 0.3, Baso % (Auto) 0.4, Neut # (Auto) 6.0, Lymph # (Auto) 0.7, [place] # (Auto) 0.7, Eos # (Auto) 0.0, Baso # (Auto) 0.0, Hemoglobin A1c 5.3 I & O for Last 24 hours: Intake & Output 07/12/24 07/13/24 07/14/24 07/15/24 23:59 23:59 23:59 23:59 Intake Total 880 / 880 1959 / 1959 Output Total 0 / 0 350 / 350 0 / 0 Balance 880 / 880 1610 / 1610 0 / 0 Weight 142.428 kg 142.428 kg 142.428 kg 142.428 kg Microbiology Reports for the Last 24 Hours: Microbiology 07/13/24 06:20 Sputum - Expectorated Sputum Gram Stain - Final 07/13/24 06:20 Sputum - Expectorated Sputum Sputum Culture - Preliminary Constitutional Constitutional: no acute distress, morbidly obese, chronically ill appearing and cooperative *Routine HEENT Exam Head: Present normocephalic Eye: Present EOMI and PERRL ENT: Present mucous membranes moist *Routine Neck Exam Neck: Present supple; Absent lymphadenopathy *Routine Respiratory Exam Respiratory: Present CTA bilaterally *Routine Cardiovascular Exam Cardiovascular: Present RRR *Routine Abdominal Exam Abdominal: Present soft and normoactive bowel sounds; Absent tenderness *Routine Rectal Exam Patient deferred: visual exam *Routine Exam Patient deferred: penile exam *Routine Extremities Exam Extremities: Absent cyanosis, clubbing or edema *Routine Skin Exam Skin: Present warm; Absent rash *Routine Neurological Exam Neurological: Present alert, oriented X3 and moving all extremities; Absent altered mental status Results Data Completed and Pending Labs on day of discharge: Labs from last 24 hours 07/15/24 07:30 WBC 7.4 D RBC 4.02 L Hgb 14.0 L Hct 41.8 L MCV 104.1 H MCH 34.8 H MCHC 33.4 RDW 14.4 Plt Count 329 MPV 7.6 Neut % (Auto) 80.8 H Lymph % (Auto) 9.4 L [place] % (Auto) 9.1 Eos % (Auto) 0.3 Baso % (Auto) 0.4 Neut # (Auto) 6.0 Lymph # (Auto) 0.7 [place] # (Auto) 0.7 Eos # (Auto) 0.0 Baso # (Auto) 0.0 Hemoglobin A1c 5.3 Preliminary micro results at discharge 07/13/24 06:20 Sputum Culture - Preliminary Sputum - Expectorated Sputum DS: Diagnosis Discharge Diagnosis (1) Acute respiratory failure with hypoxia: Status: Acute Code(s): J96.01 - Acute respiratory failure with hypoxia (2) COPD exacerbation: Status: Acute Code(s): J44.1 - Chronic obstructive pulmonary disease with (acute) exacerbation (3) Arthritis of foot, degenerative: Status: Acute Code(s): M19.079 - Primary osteoarthritis, unspecified ankle and foot Qualifiers: Laterality: bilateral Osteoarthritis type: primary Qualified Code(s): M19.071 - Primary osteoarthritis, right ankle and foot; M19.072 - Primary osteoarthritis, left ankle and foot (4) Chest pain: Status: Chronic Code(s): R07.9 - Chest pain, unspecified Qualifiers: Chest pain type: other chest pain Qualified Code(s): R07.89 - Other chest pain (5) BPH (benign prostatic hyperplasia): Status: Chronic Code(s): N40.0 - Benign prostatic hyperplasia without lower urinary tract symptoms Qualifiers: Lower urinary tract symptom detail: unspecified (6) HLD (hyperlipidemia): Status: Chronic Code(s): E78.5 - Hyperlipidemia, unspecified Qualifiers: Hyperlipidemia type: mixed hyperlipidemia Qualified Code(s): E78.2 - Mixed hyperlipidemia (7) HTN (hypertension): Status: Chronic Code(s): I10 - Essential (primary) hypertension Qualifiers: Hypertension type: essential hypertension Qualified Code(s): I10 - Essential (primary) hypertension (8) History of coronary artery stent placement: Status: Chronic Code(s): Z95.5 - Presence of coronary angioplasty implant and graft Meds Home Medications and Allergies Home Medications ?Medication ?Instructions ?Recorded ?Confirmed ?Type albuterol sulfate 90 mcg/actuation 2 puff inhalation QIDP PRN 10/27/18 07/13/24 History aerosol inhaler Shortness Of Breath 25 days #9 grams tamsulosin 0.4 mg capsule 0.4 mg PO HS 90 days #90 caps 10/27/18 07/13/24 History gabapentin 300 mg capsule 300 mg PO TID 90 days #270 caps 10/10/19 07/13/24 History folic acid 1 mg tablet 1 mg PO DAILY 10/26/22 07/13/24 History methotrexate sodium 2.5 mg tablet 20 mg PO WEEKLY 10/26/22 07/13/24 History atorvastatin 80 mg tablet 80 mg PO HS 03/12/24 07/13/24 History nitroglycerin 0.4 mg sublingual 0.4 mg sublingual Q5MINP PRN Chest 03/12/24 07/13/24 History tablet Pain pantoprazole 40 mg tablet,delayed 40 mg PO DAILY 03/12/24 07/13/24 History release potassium chloride 10 mEq 10 meq PO DAILY 03/12/24 07/13/24 History tablet,extended release cholecalciferol (vitamin D3) 125 5,000 unit PO DAILY 04/17/24 07/13/24 History mcg (5,000 unit) tablet (Vitamin D3) clopidogrel 75 mg tablet 75 mg PO DAILY 04/17/24 07/13/24 History dutasteride 0.5 mg capsule 0.5 mg PO DAILY 04/17/24 07/13/24 History lamotrigine 150 mg tablet 150 mg PO BID 04/17/24 07/13/24 History ranolazine 1,000 mg 1,000 mg PO BID 30 days #60 tabs 04/17/24 07/13/24 Rx tablet,extended release,12 hr vit C 250 mg-vit E 90 mg-zinc 40 1 cap PO BID 04/17/24 07/13/24 History mg-copper 1 [id number] capsule (PreserVision AREDS-2) amlodipine 10 mg tablet (Norvasc) 10 mg PO DAILY #30 tabs 05/03/24 07/13/24 Rx brexpiprazole 1 mg tablet (Rexulti) 1 mg PO DAILY #30 tabs 05/05/24 07/13/24 Rx spironolactone 50 mg tablet 50 mg PO DAILY #90 tabs 06/16/24 07/13/24 Rx aspirin 81 mg tablet,delayed 81 mg PO DAILY 07/13/24 07/13/24 History release furosemide 40 mg tablet 80 mg PO DAILY 07/13/24 07/13/24 History isosorbide mononitrate 60 mg 60 mg PO BID 07/13/24 07/13/24 History tablet,extended release 24 hr methocarbamol 500 mg tablet 500 mg PO Q8HP PRN muscle spasm 07/13/24 07/13/24 History metoprolol succinate 100 mg 100 mg PO HS 07/13/24 07/13/24 History tablet,extended release 24 hr trazodone 50 mg tablet 50 mg PO HSP PRN Insomnia 07/13/24 07/13/24 History vibegron 75 mg tablet (Gemtesa) 75 mg PO HS 07/13/24 07/13/24 History cefdinir 300 mg capsule 300 mg PO BID 3 days #6 caps 07/15/24 Rx clonazepam 1 mg tablet 1 mg PO BIDP PRN anxiety 3 days #6 07/15/24 Rx tabs fluticasone fur. 100 mcg-umeclid 1 inh inhalation DAILY #60 ea 07/15/24 Rx 62.5 mcg-vilant 25 mcg inhalat.powder (Trelegy Ellipta) ipratropium 0.5 mg-albuterol 3 mg 3 ml inhalation Q6H PRN shortness 07/15/24 Rx (2.5 mg base)/3 mL nebulization of breath or wheezing 30 days #180 soln mL New Prescriptions to Start Prescriptions: cefdinir Kelechi,Owen clonazepam Kelechi,Owen [id number] [Trelegy Ellipta] Kelechi,Owen ipratropium-albuterol Kelechi,Owen Allergies Allergy/AdvReac Type Severity Reaction Status Date / Time nickel (NICKEL) Allergy Unknown I-RASH Verified 06/26/24 14:34 quetiapine (From SEROQUEL) Allergy Unknown I-RASH Verified 06/26/24 14:34 NSAIDS (Non-Steroidal AdvReac Verified 06/26/24 14:34 Anti-Inflamma Discharge Plan Disposition Patient Disposition: Home, Self-Care Condition: Good Follow up Plan Follow up with: Ara Pearson APRN [Nurse Practitioner] - Enter time for follow up (The office will call you with a follow up appt. ) Alonzo Lea MD [Physician] - Enter time for follow up (The office will call you with a follow up appt. ) Jennifer Newton APRN [Primary Care Provider] - Enter time for follow up (Please call and make a follow up appt. ) Prescriptions/Medication Reconciliation: New ipratropium-albuterol 0.5 mg-3 mg(2.5 mg base)/3 mL Solution For Nebulization 3 ml inhalation Q6H PRN (Reason: shortness of breath or wheezing) 30 Days Qty: 180 0RF clonazepam 1 mg Tablet 1 mg PO BIDP PRN (Reason: anxiety) 3 Days Qty: 6 0RF cefdinir 300 mg capsule 300 mg PO BID 3 Days Qty: 6 0RF Trelegy Ellipta 100-62.5-25 mcg Blister With Device 1 inh inhalation DAILY Qty: 60 0RF Continued tamsulosin 0.4 mg capsule 0.4 mg PO HS 90 Days Qty: 90 albuterol sulfate 90 mcg/actuation HFA aerosol inhaler 2 puff INHALATION QIDP PRN (Reason: Shortness Of Breath) 25 Days Qty: 9 Patient Comments: INHALE 2 PUFFS BY MOUTH FOUR TIMES DAILY * SHAKE WELL BEFORE USE * gabapentin 300 mg capsule 300 mg PO TID 90 Days Qty: 270 methotrexate sodium 2.5 mg tablet 20 mg PO WEEKLY Rx Instructions: PATIENT TAKES 8 TABLETS BY MOUTH ONCE WEEKLY ON WEDNESDAY folic acid 1 mg tablet 1 mg PO DAILY Patient Comments: TAKE ONE TABLET BY MOUTH EVERY DAY EXCEPT FOR THE DAY you take methotrexate Rx Instructions: Patient takes 6 days a week. amlodipine [Norvasc] 10 mg tablet 10 mg PO DAILY Qty: 30 2RF Rexulti 1 mg tablet 1 mg PO DAILY Qty: 30 1RF spironolactone 50 mg tablet 50 mg PO DAILY Qty: 90 1RF pantoprazole 40 mg tablet,delayed release (DR/EC) 40 mg PO DAILY atorvastatin 80 mg tablet 80 mg PO HS potassium chloride 10 mEq tablet extended release 10 meq PO DAILY Patient Comments: TAKE ONE TABLET BY MOUTH EVERY DAY nitroglycerin 0.4 mg tablet, sublingual 0.4 mg sublingual Q5MINP PRN (Reason: Chest Pain) clopidogrel 75 mg tablet 75 mg PO DAILY Patient Comments: TAKE ONE TABLET BY MOUTH EVERY DAY dutasteride 0.5 mg capsule 0.5 mg PO DAILY Patient Comments: TAKE ONE CAPSULE BY MOUTH EVERY DAY cholecalciferol (vitamin D3) [Vitamin D3] 125 mcg (5,000 unit) Tablet 5,000 unit PO DAILY PreserVision AREDS-2 250-90-40-1 mg Capsule 1 cap PO BID lamotrigine 150 mg tablet 150 mg PO BID Patient Comments: TAKE ONE TABLET BY MOUTH TWICE DAILY ranolazine 1,000 mg tablet extended release 12 hr 1,000 mg PO BID 30 Days Qty: 60 0RF trazodone 50 mg tablet 50 mg PO HSP PRN (Reason: Insomnia) Patient Comments: TAKE ONE TABLET BY MOUTH EVERY EVENING FOR insomnia Gemtesa 75 mg Tablet 75 mg PO HS furosemide 40 mg tablet 80 mg PO DAILY Rx Instructions: TAKE TWO TABLETS BY MOUTH EVERY DAY metoprolol succinate 100 mg tablet extended release 24 hr 100 mg PO HS isosorbide mononitrate 60 mg tablet extended release 24 hr 60 mg PO BID Rx Instructions: TAKE ONE TABLET BY MOUTH TWICE DAILY FOR HIGH BLOOD PRESSURE aspirin 81 mg Tablet,Delayed Release (Dr/Ec) 81 mg PO DAILY methocarbamol 500 mg tablet 500 mg PO Q8HP PRN (Reason: muscle spasm) Discontinued budesonide-formoterol 160-4.5 mcg/actuation HFA aerosol inhaler 2 puff INHALATION BID 30 Days Qty: 10 Problem Reconciliation Problems Reviewed?: Yes Patient Discharge Instructions ACTIVITY: Continue current activity DIET: continue same diet Patient Instructions: DI for Respiratory Syncytial Virus -- Adults, DI for Respiratory Failure Print Language: Tuvaluan Providers Primary Care Provider: Jennifer Newton Admit Provider: Owen Lorenz Attending Provider: Owen Lorenz
[2024-07-15 08:00] VITALS: BP 113/73; PULSE 82; RESP 18; TEMP 36.8; O2SAT 92
[2024-07-15 08:00] LABS: Albumin Level 3.8 g/dl (3.5-5.0); Chloride 104 mmol/L (98-107); Sodium 139 mmol/L (136-145)
[2024-07-15 08:01] LABS: Potassium 4.2 mmoL/L (3.5-5.1)
[2024-07-15 08:03] LABS: Alanine Aminotransferase 35 U/L (12-78); Albumin/Globulin Ratio 1.4 (1.1-1.8); Alkaline Phosphatase 87 U/L (38-126); Anion Gap 6.2 mEq/L (5-15); Aspartate Amino Transferase 49 U/L (17-59); Bilirubin,Total 0.3 mg/dl (0.2-1.3); Blood Urea Nitrogen 24 mg/dl (9-20); Carbon Dioxide 33 mmol/L (22.0-30.0); Creatinine Clearance Estimated 75 mL/min (50-200); Estimated Glomerular Filt Rate 84 ml/min (>60); GFR (African American) 102 ML/MIN (>60); Globulin 2.7 g/dL (1.3-3.2); Total Protein,Serum 6.5 g/dl (6.3-8.2)
[2024-07-15 08:04] LABS: Glucose 132 mg/dl (74-100)
[2024-07-15 08:32] LABS: Thyroid Stimulating Hormone 0.24 uIU/mL (0.465-4.68)
[2024-07-15] MEDS: ISOSORBIDE MONO 60 MG PO (08:40)
[2024-07-15] MEDS: PAT OWN MED ***CLOPIDOGREL 75MG 75 MG PO (08:42)
[2024-07-15] MEDS: AMLODIPINE 10 MG PO (08:42)
[2024-07-15] MEDS: SPIRONOLACTONE 50 MG 1 EACH PO (08:42)
[2024-07-15] MEDS: FOLIC ACID 1 MG PO (08:42)
[2024-07-15] MEDS: PAT OWN MED ***GABAPENTIN 300MG 300 MG PO (08:43)
[2024-07-15] MEDS: RANOLAZINE 1000 MG 1 EACH PO (08:43)
[2024-07-15] MEDS: PAT OWN MED ***LAMOTRIGINE 150 MG 1 EACH PO (08:44)
[2024-07-15] MEDS: METHYLPREDNISOLONE SOD SUCC 40MG VIAL 40 MG IV (08:45)
[2024-07-15] MEDS: ASPIRIN EC 81MG TABLET 81 MG PO (08:45)
[2024-07-15] MEDS: FUROSEMIDE 80 MG TABLET PO (08:45)
[2024-07-15] MEDS: IPRATROPIUM/ALBUTEROL 3 ML NEB IH (10:53)
[2024-07-15] MEDS: FLUTICASONE/UMECLIDIN/VILANTER 100/62.5/25MCG INHALER 1 PUFF IH (10:56)
[2024-07-15 10:58] VITALS: PULSE 81; PULSE 84; O2SAT 93
--- NOTE | 2024-07-17 10:31 | SW/DCPLANNER ---
Spoke with patient on the phone. Patient stated that he is still weak and difficulty breathing. Patient stated that he has called his primary care provider and waiting on a call back to schedule a follow up appointment. Patient stated that he doesnt have Dr Lea number asked patient if he would like for me to call and make the appointment and patient said yes. Appointment made for Aug 10 @1. Patient stated that he was able to get his medicine filled before he left the hospital. Patient stated that he has no concens or questions at this time. Donte Yanez
[2024-07-18 11:20] LABS: QuantiFERON-TB Gold Plus Negative (Negative)
== END 2024-07-15 12:09 | disposition home or self-care (01) ==
LOC: ER 07-13 00:15 → 2ND 07-13 01:49
PROVIDERS: Emergency Medicine; Internal Medicine; Internal Medicine Pulmonary Disease; Nurse Practitioner Family; Student in an Organized Health Care Education/Training Program; Admitting Provider Internal Medicine Adolescent Medicine; Emergency Provider Emergency Medicine; PCP Nurse Practitioner Family; Visit Provider Internal Medicine Adolescent Medicine
DX: J96.01 Acute respiratory failure with hypoxia (principal); J44.1 Chronic obstructive pulmonary disease with (acute) exacerbation; M19.071 Primary osteoarthritis, right ankle and foot; M19.072 Primary osteoarthritis, left ankle and foot; R07.89 Other chest pain; N40.0 Benign prostatic hyperplasia without lower urinary tract symptoms; E78.2 Mixed hyperlipidemia; I11.0 Hypertensive heart disease with heart failure; Z95.5 Presence of coronary angioplasty implant and graft; J12.9 Viral pneumonia, unspecified; I50.33 Acute on chronic diastolic (congestive) heart failure; R06.02 Shortness of breath; I25.118 Atherosclerotic heart disease of native coronary artery with other forms of angina pectoris; F17.210 Nicotine dependence, cigarettes, uncomplicated; K21.9 Gastro-esophageal reflux disease without esophagitis; E66.01 Morbid (severe) obesity due to excess calories; F43.21 Adjustment disorder with depressed mood; F32.9 Major depressive disorder, single episode, unspecified; Z68.42 Body mass index [BMI] 45.0-49.9, adult; I25.2 Old myocardial infarction; Z79.899 Other long term (current) drug therapy
CPT/HCPCS: 36415; 71275; 80048; 80053; 80061; 80076; 82803; 83036; 83605; 83735; 83880; 84145; 84443; 84484; 85025; 85610; 86480; 86803; 87070; 87077; 87116; 87186; 87205; 87206; 87220; 87389; 87633; 87636; 93005; 93306; 94640; 94761; 99252; 99291; G0378; J0696; J1940; J2270; J2919; J3475; J7620; J8610; Q9967

== ENCOUNTER 2024-09-07 20:46 | Emergency (ER) | payer MEDICARE, SELFPAY ==
[2024-09-07] VITALS (7 sets, daily range): BP systolic 104–128; BP diastolic 59–87; PULSE 56–72; RESP 14–20; TEMP 36.9–37; O2SAT 95–98; BMI 44.4
--- NOTE | 2024-09-07 21:05 | CT_ITS ---
PROCEDURE INFORMATION: Exam: CT Head Without Contrast Exam date and time: 09/07/2024 9:28 PM Age: 64 years old Clinical indication: Pain; Headache; S/P eye surgery today, ; additional info: R headache, R vision change TECHNIQUE: Imaging protocol: Computed tomography of the head without contrast. Radiation optimization: All CT scans at this facility use at least one of these dose optimization techniques: automated exposure control; mA and/or kV adjustment per patient size (includes targeted exams where dose is matched to clinical indication); or iterative reconstruction. COMPARISON: FINDINGS: Brain: No evidence for intracranial hemorrhage, mass lesions or acute stroke. Intracranial vascular calcifications. Mild small vessel ischemic change in the periventricular white matter. Cerebral ventricles: No ventriculomegaly. Pituitary gland and sella: Negative Paranasal sinuses: Visualized sinuses are unremarkable. No fluid levels. Mastoid air cells: Visualized mastoid air cells are well aerated. Orbital cavities: Bilateral cataract extractions. Parotid and submandibular glands: Negative Bones: Unremarkable. No acute fracture. Soft tissues: Unremarkable. Vasculature: Negative. Other findings: Mild generalized atrophy. IMPRESSION: 1. No evidence for intracranial hemorrhage, mass lesions or acute stroke. 2. Intracranial vascular calcifications. 3. Mild generalized atrophy. 4. Mild small vessel ischemic change in the periventricular white matter. 5. Bilateral cataract extractions.
--- NOTE | 2024-09-07 21:05 | CT_ITS ---
PROCEDURE INFORMATION: Exam: CTA Neck With Contrast Exam date and time: 09/07/2024 9:31 PM Age: 64 years old Clinical indication: Other: R headache, R vision change TECHNIQUE: Imaging protocol: Computed tomographic angiography of the neck with contrast. Exam focused on the cervical segments of the vasculature. 3D rendering (Not supervised by radiologist): MIP and/or 3D reconstructed images were created by the technologist. Radiation optimization: All CT scans at this facility use at least one of these dose optimization techniques: automated exposure control; mA and/or kV adjustment per patient size (includes targeted exams where dose is matched to clinical indication); or iterative reconstruction. Contrast material: ISOVUE 370; Contrast volume: 80 ml; Contrast route: INTRAVENOUS (IV); COMPARISON: CT ANGIO HEAD 09/07/2024 9:31 PM FINDINGS: Right common carotid artery: No stenosis. No dissection or occlusion. Right internal carotid artery: No stenosis of the extracranial segment. No dissection or occlusion. Right external carotid artery: No occlusion or stenosis of the origin. Left common carotid artery: No stenosis. No dissection or occlusion. Left internal carotid artery: No stenosis of the extracranial segment. No dissection or occlusion. Left external carotid artery: No occlusion or stenosis of the origin. Right vertebral artery: No stenosis. No dissection or occlusion. Left vertebral artery: No stenosis. No dissection or occlusion. Soft tissues: Normal. No significant soft tissue swelling. Bones/joints: No acute fracture. IMPRESSION: No stenosis or occlusion. REFERENCES: NASCET CRITERIA. The degree of stenosis in the cervical segment of the internal carotid artery is based on NASCET criteria. Normal is no stenosis. Mild is less than 50% stenosis. Moderate is 50-69% stenosis. Severe is 70% to 99% stenosis. Total occlusion is no detectable patent lumen.
--- NOTE | 2024-09-07 21:05 | CT_ITS ---
PROCEDURE INFORMATION: Exam: CTA Head With Contrast, Arteriography Exam date and time: 09/07/2024 9:31 PM Age: 64 years old Clinical indication: Other: R headache, R vision change TECHNIQUE: Imaging protocol: Computed tomographic angiography of the head with contrast. Exam focused on the arteries. 3D rendering (Not supervised by radiologist): MIP and/or 3D reconstructed images were created by the technologist. Radiation optimization: All CT scans at this facility use at least one of these dose optimization techniques: automated exposure control; mA and/or kV adjustment per patient size (includes targeted exams where dose is matched to clinical indication); or iterative reconstruction. Contrast material: ISOVUE 370; Contrast volume: 80 ml; Contrast route: INTRAVENOUS (IV); COMPARISON: CT HEAD/BRAIN WO CON 09/07/2024 9:28 PM FINDINGS: ANTERIOR CIRCULATION: Right internal carotid artery: Intracranial segment is patent with no significant stenosis. No aneurysm. Right middle cerebral artery: No occlusion or significant stenosis. No aneurysm. Right anterior cerebral artery: No occlusion or significant stenosis. No aneurysm. Left internal carotid artery: Intracranial segment is patent with no significant stenosis. No aneurysm. Left middle cerebral artery: No occlusion or significant stenosis. No aneurysm. Left anterior cerebral artery: No occlusion or significant stenosis. No aneurysm. POSTERIOR CIRCULATION: Right vertebral artery: No occlusion or significant stenosis. No aneurysm. Left vertebral artery: No occlusion or significant stenosis. No aneurysm. Basilar artery: No occlusion or significant stenosis. No aneurysm. Right posterior cerebral artery: No occlusion or significant stenosis. No aneurysm. Left posterior cerebral artery: No occlusion or significant stenosis. No aneurysm. Other arteries: Visualize ophthalmic arteries are patent bilaterally. Brain: No evidence for intracranial hemorrhage, mass lesions or acute stroke. Intracranial vascular calcifications. Mild small vessel ischemic change in the periventricular white matter. Cerebral ventricles: No ventriculomegaly. Orbital cavities: Bilateral cataract extractions. Bones/joints: Unremarkable. No acute fracture. Soft tissues: Unremarkable. Other findings: No evidence for large vessel occlusion. Mild generalized atrophy. IMPRESSION: 1. No evidence for large vessel occlusion. 2. Visualize ophthalmic arteries are patent bilaterally. 3. No evidence for intracranial hemorrhage, mass lesions or acute stroke. 4. Intracranial vascular calcifications. 5. Mild generalized atrophy. 6. Mild small vessel ischemic change in the periventricular white matter. 7. Bilateral cataract extractions.
--- NOTE | 2024-09-07 21:07 | ED_ITS ---
Discharge Plan Disposition Patient Disposition: Home, Self-Care Condition: Good Prescriptions Prescriptions: No Action tamsulosin 0.4 mg capsule 0.4 mg PO HS 90 Days Qty: 90 albuterol sulfate 90 mcg/actuation HFA aerosol inhaler 2 puff INHALATION QIDP PRN (Reason: Shortness Of Breath) 25 Days Qty: 9 Patient Comments: INHALE 2 PUFFS BY MOUTH FOUR TIMES DAILY * SHAKE WELL BEFORE USE * gabapentin 300 mg capsule 300 mg PO TID 90 Days Qty: 270 methotrexate sodium 2.5 mg tablet 20 mg PO WEEKLY Rx Instructions: PATIENT TAKES 8 TABLETS BY MOUTH ONCE WEEKLY ON WEDNESDAY folic acid 1 mg tablet 1 mg PO DAILY Patient Comments: TAKE ONE TABLET BY MOUTH EVERY DAY EXCEPT FOR THE DAY you take methotrexate Rx Instructions: Patient takes 6 days a week. Rexulti 1 mg tablet 1 mg PO DAILY Qty: 30 1RF ofloxacin 0.3 % drops 1 drp Eye-Right .four times a day Patient Comments: INSTILL ONE DROP INTO THE OPERATIVE EYE FOUR TIMES DAILY FOR 7 DAYS prednisolone acetate 1 % drops,suspension 1 drp Eye-Right .four times a day Patient Comments: INSTILL 1 DROP INTO THE OPERATIVE EYE FOUR TIMES DAILY FOR 7 DAYS THEN DECREASE TO 1 DROP TWICE DAILY FOR 14 DAYS spironolactone 50 mg tablet 50 mg PO DAILY Qty: 90 1RF amlodipine 10 mg tablet See Rx Instructions .ROUTE .COMPLEX Qty: 90 3RF Dose Instruction: TAKE ONE TABLET BY MOUTH EVERY DAY Rx Instructions: TAKE ONE TABLET BY MOUTH EVERY DAY Trelegy Ellipta 100-62.5-25 mcg blister with device 1 inh inhalation DAILY Qty: 60 1RF pantoprazole 40 mg tablet,delayed release (DR/EC) 40 mg PO DAILY atorvastatin 80 mg tablet 80 mg PO HS potassium chloride 10 mEq tablet extended release 10 meq PO DAILY Patient Comments: TAKE ONE TABLET BY MOUTH EVERY DAY nitroglycerin 0.4 mg tablet, sublingual 0.4 mg sublingual Q5MINP PRN (Reason: Chest Pain) clopidogrel 75 mg tablet 75 mg PO DAILY Patient Comments: TAKE ONE TABLET BY MOUTH EVERY DAY dutasteride 0.5 mg capsule 0.5 mg PO DAILY Patient Comments: TAKE ONE CAPSULE BY MOUTH EVERY DAY cholecalciferol (vitamin D3) [Vitamin D3] 125 mcg (5,000 unit) Tablet 5,000 unit PO DAILY PreserVision AREDS-2 250-90-40-1 mg Capsule 1 cap PO BID lamotrigine 150 mg tablet 150 mg PO BID Patient Comments: TAKE ONE TABLET BY MOUTH TWICE DAILY ranolazine 1,000 mg tablet extended release 12 hr 1,000 mg PO BID 30 Days Qty: 60 0RF trazodone 50 mg tablet 50 mg PO HSP PRN (Reason: Insomnia) Patient Comments: TAKE ONE TABLET BY MOUTH EVERY EVENING FOR insomnia Gemtesa 75 mg Tablet 75 mg PO HS furosemide 40 mg tablet 80 mg PO DAILY Rx Instructions: TAKE TWO TABLETS BY MOUTH EVERY DAY metoprolol succinate 100 mg tablet extended release 24 hr 100 mg PO HS isosorbide mononitrate 60 mg tablet extended release 24 hr 60 mg PO BID Rx Instructions: TAKE ONE TABLET BY MOUTH TWICE DAILY FOR HIGH BLOOD PRESSURE aspirin 81 mg Tablet,Delayed Release (Dr/Ec) 81 mg PO DAILY methocarbamol 500 mg tablet 500 mg PO Q8HP PRN (Reason: muscle spasm) ipratropium-albuterol 0.5 mg-3 mg(2.5 mg base)/3 mL Solution For Nebulization 3 ml inhalation Q6H PRN (Reason: shortness of breath or wheezing) 30 Days Qty: 180 0RF clonazepam 1 mg Tablet 1 mg PO BIDP PRN (Reason: anxiety) 3 Days Qty: 6 0RF Referrals Follow up/Referrals: Jennifer Newton APRN [Primary Care Provider] - See instructions Activity Restrictions/Add. Instructions Additional Instructions/Restrictions: You were evaluated in the emergency department today. Please follow-up very closely with your primary care provider over the next 48 hours. I also recommend close follow-up with your eye doctor. Return to the emergency department for new or worsening symptoms. Clinical Impressions Clinical Impression: Headache, Blurred vision, right eye, Cerebral microvascular disease Instructions Patient Instructions: DI for Headache, DI for Visual Field Disturbances Print Language Print Language: Georgian Discharge ED Provider: Minnie Mendieta General Adult HPI General Chief complaint: Headache Stated complaint: Right sided facial tingling, pain above right eye Time Seen by Provider: 09/07/24 20:47 Mode of Arrival: EMS Source of Information: Patient Limitations: No Limitations Description of Symptoms (Recalled from ER Triage Doc. by RN): Pt states he has right facial heaviness. Fast - History of Present Illness HPI narrative: This patient is a 64-year-old male with a history of cataracts status post surgery earlier today on the left eye and surgery on the right eye back in August, CAD, hypertension, hyperlipidemia, alcohol abuse, BPH, tobacco dependence, and morbid obesity presenting to the emergency department for evaluation with concern for right-sided facial heaviness, right-sided headache, and right-sided visual disturbance. He notes that symptoms been going on for a while, at least since wednesday. He went today for left eye cataract surgery, and he states he did tell them about his right eye but they did not do anything about it. He denies any other concerns, such as unilateral numbness or tingling, gait disturbance, balance issues, speech difficulty, or other concerns. Related Data Home Medications ?Medication ?Instructions ?Recorded ?Confirmed albuterol sulfate 90 mcg/actuation 2 puff inhalation QIDP PRN 10/27/18 08/29/24 aerosol inhaler Shortness Of Breath 25 days #9 grams tamsulosin 0.4 mg capsule 0.4 mg PO HS 90 days #90 caps 10/27/18 08/29/24 gabapentin 300 mg capsule 300 mg PO TID 90 days #270 caps 10/10/19 08/29/24 folic acid 1 mg tablet 1 mg PO DAILY 10/26/22 08/29/24 methotrexate sodium 2.5 mg tablet 20 mg PO WEEKLY 10/26/22 08/29/24 atorvastatin 80 mg tablet 80 mg PO HS 03/12/24 08/29/24 nitroglycerin 0.4 mg sublingual 0.4 mg sublingual Q5MINP PRN Chest 03/12/24 08/29/24 tablet Pain pantoprazole 40 mg tablet,delayed 40 mg PO DAILY 03/12/24 08/29/24 release potassium chloride 10 mEq 10 meq PO DAILY 03/12/24 08/29/24 tablet,extended release cholecalciferol (vitamin D3) 125 5,000 unit PO DAILY 04/17/24 08/29/24 mcg (5,000 unit) tablet (Vitamin D3) clopidogrel 75 mg tablet 75 mg PO DAILY 04/17/24 08/29/24 dutasteride 0.5 mg capsule 0.5 mg PO DAILY 04/17/24 08/29/24 lamotrigine 150 mg tablet 150 mg PO BID 04/17/24 08/29/24 vit C 250 mg-vit E 90 mg-zinc 40 1 cap PO BID 04/17/24 08/29/24 mg-copper 1 [id number] capsule (PreserVision AREDS-2) aspirin 81 mg tablet,delayed 81 mg PO DAILY 07/13/24 08/29/24 release furosemide 40 mg tablet 80 mg PO DAILY 07/13/24 08/29/24 isosorbide mononitrate 60 mg 60 mg PO BID 07/13/24 08/29/24 tablet,extended release 24 hr methocarbamol 500 mg tablet 500 mg PO Q8HP PRN muscle spasm 07/13/24 08/29/24 metoprolol succinate 100 mg 100 mg PO HS 07/13/24 08/29/24 tablet,extended release 24 hr trazodone 50 mg tablet 50 mg PO HSP PRN Insomnia 07/13/24 08/29/24 vibegron 75 mg tablet (Gemtesa) 75 mg PO HS 07/13/24 08/29/24 ofloxacin 0.3 % eye drops 1 drp Eye-Right .four times a day 08/10/24 08/29/24 prednisolone acetate 1 % eye 1 drp Eye-Right .four times a day 08/10/24 08/29/24 drops,suspension Previous Rx's ?Medication ?Instructions ?Recorded ranolazine 1,000 mg 1,000 mg PO BID 30 days #60 tabs 04/17/24 tablet,extended release,12 hr brexpiprazole 1 mg tablet (Rexulti) 1 mg PO DAILY #30 tabs 05/05/24 spironolactone 50 mg tablet 50 mg PO DAILY #90 tabs 06/16/24 clonazepam 1 mg tablet 1 mg PO BIDP PRN anxiety 3 days #6 07/15/24 tabs ipratropium 0.5 mg-albuterol 3 mg 3 ml inhalation Q6H PRN shortness 07/15/24 (2.5 mg base)/3 mL nebulization of breath or wheezing 30 days #180 soln mL amlodipine 10 mg tablet See Rx Instructions .Route 08/21/24 .COMPLEX #90 tabs fluticasone fur. 100 mcg-umeclid 1 inh inhalation DAILY #60 ea 08/28/24 62.5 mcg-vilant 25 mcg inhalat.powder (Trelegy Ellipta) Allergies Allergy/AdvReac Type Severity Reaction Status Date / Time nickel (NICKEL) Allergy Unknown I-RASH Verified 08/10/24 13:03 quetiapine (From SEROQUEL) Allergy Unknown I-RASH Verified 08/10/24 13:03 NSAIDS (Non-Steroidal AdvReac Verified 08/10/24 13:03 Anti-Inflamma [facility] Disclaimer: The information contained in this section may have been updated after the patient was seen, as this information can be updated by other users. Medical History Atypical pneumonia Pulmonary emphysema Smoking greater than 30 pack years History of rheumatoid arthritis Acute and chronic respiratory failure with hypoxia Viral pneumonia Grief SOBOE (shortness of breath on exertion) Acute on chronic heart failure with preserved ejection fraction (HFpEF) Deviated nasal septum Macular degeneration CHF (congestive heart failure) COPD exacerbation COPD (chronic obstructive pulmonary disease) Major depressive disorder Callus Abnormal nuclear cardiac imaging test Angina pectoris Hypertension Hyperlipidemia Abnormal result of cardiovascular function study Tachycardia Unstable angina Dizziness GERD (gastroesophageal reflux disease) Abnormal cardiovascular stress test Typical angina Tobacco dependence syndrome Abnormal EKG CAD (coronary artery disease) Edema Dyspnea Chest pain Surgical History History of hernia surgery H/O removal of cyst History of cardiac cath H/O heart artery stent History of coronary artery stent placement Family History Other No significant family history Social History Smoking Status: Current every day smoker tobacco type: cigarettes packs per day: 1 and pipe alcohol intake: current alcohol intake frequency: a few times a month substance use type: former substance user and marijuana counseling given: No (patient refused) counseling provided: none current occupational status: disabled Travel in the last 8 weeks: None household members: children housing: house marital status: assisted: No caffeine: Yes physical activity: none Have you lived/traveled outside [place] in past 30 days?: No Contact w/someone who lives/traveled outside [place] past 30 days?: No Exposure to someone with infectious disease in past 14 days?: No Do you have a fever (greater than 100.4 F or 38 C)?: No Have you tested positive for COVID-19: No Exposed to someone with COVID-19 in past 14 days?: No Do you have a sore throat?: No Do you have a cough?: No Do you have any weakness?: No Do you have any diarrhea?: No Are you experiencing any unusual bleeding?: No Do you have any muscle aches/pain?: No Do you have any abdominal pain?: No Are you experiencing loss of taste or smell?: No Other Medical History Have you received the Flu Vaccine for this season: No Have you received the Pneumonia Vaccine: Yes ROS Obtained: Yes All systems reviewed & no additional complaints except as documented Physical Exam General General appearance: alert and in no apparent distress Head Head exam: atraumatic and normocephalic Eye Eye exam: Present normal appearance, PERRL and EOMI ENT ENT exam: Present normal exam, normal oropharynx, mucous membranes moist and normal external ear exam Neck Neck exam: Present normal inspection, full ROM and trachea midline; Absent tenderness Chest Chest inspection: Present normal inspection and symmetric chest wall rise; Absent tenderness Respiratory Respiratory exam: Present normal lung sounds bilaterally; Absent respiratory distress, wheezes, stridor or accessory muscle use Cardiovascular Cardiovascular exam: Present regular rate and normal rhythm Abdominal Exam Abdominal exam: Present soft; Absent distention, tenderness or guarding Extremities Exam Extremities exam: Present normal inspection, full ROM and normal capillary refill; Absent tenderness or edema Back Exam Back exam: Present normal inspection and full ROM; Absent tenderness Neurological Exam Neurological exam: Present alert, oriented X3, CN II-XII intact, normal gait and other (Subjective haziness of right eye vision, subjective decrease in sensation of the right side of the face. Otherwise, completely neurologically intact. No significant temporal artery tenderness to palpation.); Absent motor sensory deficit Psychiatric Psychiatric exam: Present normal affect and normal mood Skin Skin exam: Present warm and dry Medical Decision Making Medical Records Medical records reviewed: Yes I reviewed the patient's medical records. Screening: Per USPSTF and CDC recommendations, given the prevalence of disease in our region, it is our hospital?s policy to screen for HIV and viral Hepatitis for all patients aged 18 and over and those with ongoing risk factors. Tk Inquiry Pt receiving controlled substance: No Vital Signs: 09/07/24 20:24 09/07/24 20:30 09/07/24 21:00 Temperature 98.6 F Temperature Source Oral Pulse Rate 56 L Pulse Rate [Right Brachial] 63 Respiratory Rate 20 14 19 Blood Pressure 113/65 106/60 L Blood Pressure [Right Arm] 128/67 Blood Pressure Mean [Right Arm] 87 Blood Pressure Source Blood Pressure Source [Right Arm] Automatic Cuff Blood Pressure Position Blood Pressure Position [Right Arm] Sitting 02 Sat by Pulse Oximetry 98 97 Oxygen Delivery Method Room Air Room Air Room Air 09/07/24 21:47 09/07/24 22:00 09/07/24 22:30 Temperature Temperature Source Pulse Rate 72 69 72 Pulse Rate [Right Brachial] Respiratory Rate 14 16 16 Blood Pressure 107/71 L 117/87 104/61 L Blood Pressure [Right Arm] Blood Pressure Mean [Right Arm] Blood Pressure Source Blood Pressure Source [Right Arm] Blood Pressure Position Blood Pressure Position [Right Arm] 02 Sat by Pulse Oximetry 96 96 95 Oxygen Delivery Method Room Air Room Air Room Air 09/07/24 23:31 Temperature 98.4 F Temperature Source Oral Pulse Rate 72 Pulse Rate [Right Brachial] Respiratory Rate 19 Blood Pressure 105/59 L Blood Pressure [Right Arm] Blood Pressure Mean [Right Arm] Blood Pressure Source Automatic Cuff Blood Pressure Source [Right Arm] Blood Pressure Position Sitting Blood Pressure Position [Right Arm] 02 Sat by Pulse Oximetry Oxygen Delivery Method Room Air Lab Data Lab results reviewed: Yes I reviewed the patient's lab results. Lab Results 09/07/24 20:24: WBC 8.8, RBC 3.71 L, Hgb 12.9 L, Hct 38.3 L, MCV 103.2 H, MCH 34.8 H, MCHC 33.7, RDW 14.0, Plt Count 288, MPV 9.3, Neut % (Auto) 69.9, Lymph % (Auto) 17.3, [place] % (Auto) 10.1 H, Eos % (Auto) 1.4, Baso % (Auto) 0.5, Neut # (Auto) 6.2, Lymph # (Auto) 1.5, [place] # (Auto) 0.9, Eos # (Auto) 0.1, Baso # (Auto) 0.0, PT 9.8, INR 0.88 L, Sodium 138, Potassium 3.4 L, Chloride 106, Carbon Dioxide 24, Anion Gap 11.4, BUN 13, Creatinine 0.80, Estimated Creat Clear 75, Estimated GFR 97, Est GFR ( Amer) 117, Glucose 85, Calcium 8.9, Phosphorus 2.9, Magnesium 1.8, Total Bilirubin 0.3, AST 33, ALT 28, Alkaline Phosphatase 103, Troponin I < 0.01, Total Protein 6.5, Albumin 4.1, Globulin 2.4, Albumin/Globulin Ratio 1.7, TSH 1.69, Thyroxine (T4) 7.2 09/07/24 20:34: ESR 24 H 09/07/24 20:24 09/07/24 20:24 Orders (Tests/Meds): ED MEDICATIONS Discontinued Medications Generic Name Dose Route Start Last Admin Trade Name Freq PRN Reason Stop Dose Admin Acetaminophen 1,000 mg 09/07/24 21:10 09/07/24 21:49 Acetaminophen 1,000mg/100ml Vial IV 09/07/24 21:11 1,000 mg ONCE ONE Administration Lactated Ringer's 500 mls @ 999 mls/hr 09/07/24 21:11 09/07/24 21:40 Lactated Ringer's 500ml IV 09/07/24 21:41 999 mls/hr .Q31M ONE Administration Iopamidol 80 ml 09/07/24 21:28 09/07/24 21:31 Iopamidol-370 (76%);100ml Bottle IV 09/07/24 21:29 80 ml ONCE ONE Administration Ketorolac Tromethamine 15 mg 09/07/24 21:10 09/07/24 21:42 Ketorolac 30mg/Ml Vial IV 09/07/24 21:11 15 mg ONCE ONE Administration Metoclopramide HCl 5 mg 09/07/24 21:10 09/07/24 21:44 Metoclopramide Hcl 10mg/2ml Vial IVP 09/07/24 21:11 5 mg ONCE ONE Administration Potassium Chloride 40 meq 09/07/24 22:10 09/07/24 22:31 Potassium Chloride 20meq Tab PO 09/07/24 22:11 40 meq ONCE ONE Administration Sodium Chloride 50 ml 09/07/24 21:28 09/07/24 21:30 0.9 % Sodium Chloride 50 Ml Vial IV 09/07/24 21:29 50 ml ONCE ONE Administration Sodium Chloride 10 ml 09/07/24 21:28 09/07/24 21:30 Sodium Chloride 0.9% 10ml Syr (Rad Only) IV 09/07/24 21:29 10 ml ONCE ONE Administration ORDERS Category Date Time Status CT angio head Stat Cat Scan 09/07/24 21:[address] angio neck Stat Cat Scan 09/07/24 21:[address] head/brain wo con Stat Cat Scan 09/07/24 21:05 Completed CBC w/Auto Diff [Complete Blood Count Auto Diff] Stat Lab 09/07/24 20:24 Completed CMP [Comprehensive Metabolic Panel] Stat Lab 09/07/24 20:24 Completed ESR [Erythrocyte Sedimentation Rate] Stat Lab 09/07/24 20:34 Completed MAG [Magnesium] Stat Lab 09/07/24 20:24 Completed PHOS [Phosphorous] Stat Lab 09/07/24 20:24 Completed PT/INR [Prothrombin Time INR] Stat Lab 09/07/24 20:24 Completed T4 (Thyroxine) Stat Lab 09/07/24 20:24 Completed TSH [Thyroid Stimulating Hormone] Stat Lab 09/07/24 20:24 Completed Trop I [Troponin I] Stat Lab 09/07/24 20:24 Completed ECG Data Tracing #1: I reviewed this ECG and interpreted as documented below: Normal sinus rhythm with a ventricular rate of 61 bpm. No acute STEMI. Occasional PACs noted. Left anterior fascicular block. ECG initial impression date: 09/07/24 ECG initial impression time: 21:57 Medical Decision Narrative: In summary, this patient is a 64-year-old male presenting to the Emergency Department for evaluation of headache, right-sided facial pain/tingling, right- sided visual disturbance that have been going on for 4 days. Differential diagnoses considered include but are not limited to complex migraine, tension headache, occipital neuralgia, trigeminal neuralgia, angle-closure glaucoma. Ruling out the most morbid conditions drove assessment. It should be noted patient's history includes obesity, hypertension, hyperlipidemia, alcohol abuse, CAD, tobacco dependence which are not at goal therapy. This complicates all aspects of care by increasing patient's risk for morbidity. I reviewed patient's past medical records and noted previous admission for heart failure back in July. I also noted follow-up with behavioral health with concern for major depressive disorder recently. On exam, the patient is lying in bed in no acute distress. NIH stroke scale is 1 for subjective decrease in sensation of the right side.patient states he feels like he has facial droop, but his face is completely symmetric. He is outside of any window for tPA/TNK or thrombectomy, as symptoms started several days ago. Workup included CBC, CMP, ESR, magnesium, coags, CT head, CT angiogram of the head and neck, and EKG. EKG obtained is reassuring. For the headache, patient was given a migraine cocktail of a bolus of IV fluids, Reglan, Toradol, Tylenol. I independently interpreted CT scan prior to the radiologist read and noted chronic white matter changes but no obvious acute hemorrhage or space-occupying brain lesion. Please see their read for final interpretation. They noted chronic white matter small vessel disease without obvious acute issue. I pressure checked it is normal. Labs were obtained that demonstrated no significant elevation in ESR, reassuring CBC with no significant leukocytosis, reassuring chemistry with only mild hypokalemia. On reassessment, patient had good improvement after administration of interventions above. He is neurologically intact. At this time, I feel that he is appropriate for discharge home with close follow-up with his eye doctor and primary care provider. Strict return precautions given. Critical Care Critical Care Time Critical Care Time: No
[2024-09-07 21:10] LABS: Basophils % 0.5 % (0.1-2.0); Eosinophils # 0.1 K/mm3 (0.0-0.4); Eosinophils % 1.4 % (0.1-12.0); Hematocrit 38.3 % (42.0-52.0); Hemoglobin 12.9 g/dL (14.1-18.0); Lymphocytes # 1.5 K/mm3 (0.7-4.5); Lymphocytes % 17.3 % (10-50); Mean Corpuscular HGB Conc 33.7 g/dL (31.8-35.4); Mean Corpuscular Hemoglobin 34.8 pg (27.0-31.2); Mean Corpuscular Volume 103.2 fl (80-94); Mean Platelet Volume 9.3 fl (7.4-10.4); Monocytes # 0.9 K/mm3 (0.1-1.0); Monocytes % 10.1 % (1.7-9.3); Neutrophils # 6.2 K/mm3 (1.8-7.8); Neutrophils % 69.9 % (37.0-80.0); Platelet Count 288 K/mm3 (142-424); Red Blood Count 3.71 M/mm3 (4.60-6.20); White Blood Count 8.8 K/mm3 (4.8-10.8)
[2024-09-07 21:14] LABS: Albumin Level 4.1 g/dl (3.5-5.0); Chloride 106 mmol/L (98-107); Potassium 3.4 mmoL/L (3.5-5.1); Sodium 138 mmol/L (136-145)
[2024-09-07 21:17] LABS: Alanine Aminotransferase 28 U/L (12-78); Albumin/Globulin Ratio 1.7 (1.1-1.8); Alkaline Phosphatase 103 U/L (38-126); Anion Gap 11.4 mEq/L (5-15); Aspartate Amino Transferase 33 U/L (17-59); Bilirubin,Total 0.3 mg/dl (0.2-1.3); Blood Urea Nitrogen 13 mg/dl (9-20); Calcium 8.9 mg/dl (8.4-10.2); Carbon Dioxide 24 mmol/L (22.0-30.0); Creatinine Clearance Estimated 75 mL/min (50-200); Estimated Glomerular Filt Rate 97 ml/min (>60); GFR (African American) 117 ML/MIN (>60); Globulin 2.4 g/dL (1.3-3.2); Glucose 85 mg/dl (74-100); Phosphorous 2.9 mg/dl (2.5-4.5); Total Protein,Serum 6.5 g/dl (6.3-8.2)
[2024-09-07 21:18] LABS: Magnesium 1.8 mg/dl (1.6-2.3)
[2024-09-07 21:22] LABS: INR 0.88 (0.9-1.1); Prothrombin Time 9.8 seconds (9.2-12.1)
[2024-09-07] MEDS: SODIUM CHLORIDE 0.9% 10ML SYR (RAD ONLY) 10 ML IV (21:30)
[2024-09-07] MEDS: 0.9 % SODIUM CHLORIDE 50 ML VIAL IV (21:30)
[2024-09-07] MEDS: IOPAMIDOL-370 (76%);100ML BOTTLE 80 ML IV (21:31)
[2024-09-07 21:35] LABS: T4 (Thyroxine) 7.2 ug/dl (5.53-11.0)
[2024-09-07 21:36] LABS: Erythrocyte Sedimentation Rate 24 mm/hr (0-20)
[2024-09-07] MEDS: RINGERS SOLUTION,LACTATED 500 ML 999 ML IV (21:40)
[2024-09-07] MEDS: KETOROLAC 30MG/ML VIAL 15 MG IV (21:42)
[2024-09-07] MEDS: METOCLOPRAMIDE HCL 10MG/2ML VIAL 5 MG IVP (21:44)
[2024-09-07 21:48] LABS: Thyroid Stimulating Hormone 1.69 uIU/mL (0.465-4.68)
[2024-09-07] MEDS: ACETAMINOPHEN 1,000MG/100ML VIAL 1000 MG IV (21:49)
--- NOTE | 2024-09-07 21:54 | ECG_ITS ---
APPROVED REPORT Exam: Resting ECG HR:61 bpm ECG Measurements Heart Rate 61 AXES OR 181 P 60 QRSd 118 QRS -60 QT 434 T 36 QTc 438 Conclusion SINUS RHYTHM WITH OCCASIONAL SUPRAVENTRICULAR PREMATURE COMPLEXES PATTERN CONSISTENT WITH PULMONARY DISEASE LEFT ANTERIOR FASCICULAR BLOCK [QRS AXIS <= -45, QR IN I, RS IN II] MINIMAL VOLTAGE CRITERIA FOR LVH, CONSIDER NORMAL VARIANT [MEETS CRITERIA IN ONE OF: R(aVL), S(V1), R(V5), R(V5/V6)+S(V1)] ABNORMAL ECG UNCONFIRMED REPORT Electronically signed by : CLAUDETTE MARTINEZ, 09/08/2024 06:50:28
[2024-09-07 21:56] LABS: Troponin I < 0.01 ng/ml (0.00-0.034)
--- NOTE | 2024-09-07 22:00 | PC.NURSE ---
2139- LRS administered per order via RAC, see SEP. 2141- Toradol administered per order via RAC, see SEP. 2143- Reglan administered per order, see SEP. 2148- Tylenol administered per order, see MAR. Hourly rounding complete, call espinoza in reach, family x 1 at bedside. Patient expresses no needs at this time. A & O x 4, no distress noted. Cardiac, BP, and SpO2 monitonring continued. Awaiting results, no further orders at this time.
--- NOTE | 2024-09-07 22:30 | PC.NURSE ---
Pt awaiting results and dispo
[2024-09-07] MEDS: POTASSIUM CHLORIDE 20MEQ TAB 40 MEQ PO (22:31)
== END 2024-09-07 23:29 | disposition home or self-care (01) ==
PROVIDERS: Emergency Provider Emergency Medicine; PCP Nurse Practitioner Family
DX: I67.89 Other cerebrovascular disease (principal); H53.8 Other visual disturbances; R51.9 Headache, unspecified; R29.810 Facial weakness; H53.141 Visual discomfort, right eye; H57.11 Ocular pain, right eye; F17.210 Nicotine dependence, cigarettes, uncomplicated; E66.01 Morbid (severe) obesity due to excess calories; I10 Essential (primary) hypertension; E78.5 Hyperlipidemia, unspecified; I25.10 Atherosclerotic heart disease of native coronary artery without angina pectoris
CPT/HCPCS: 70450; 70496; 70498; 80053; 83735; 84100; 84436; 84443; 84484; 85025; 85610; 85651; 93005; 96361; 96374; 96375; 99285; J0131; J1885; J2765; J7120; Q9967

== ENCOUNTER 2024-09-28 10:00 | Outpatient (POV) | payer MEDICARE, SELFPAY ==
[2024-09-28 10:20] VITALS: BP 131/72; PULSE 82; RESP 18; O2SAT 94; BMI 44.4
--- NOTE | 2024-09-28 11:00 | EXP.PAIN.OV ---
HPI Data of Consult Patient: new to practice Consult date: 09/28/24 Requesting Physician: Minnie Price APRN Primary Care Provider: Jennifer Newton APRN Consult Narrative Reason for consult: Low back pain, bilateral hip pain History of present illness: Mr. Maharaj is a 64 year old male who presents today as a new patient. He is a referral from [facility]. Today he rates his pain a 3 out of 10 however does state the pain will go to at least a 5 out of 10 with increased activity or prolonged positioning. He states that he has had chronic low back pain for years that have progressively worsened and does describe it as an aching, throbbing sensation with numbness and tingling that goes across to his hips, buttocks area and upper thighs. Patient does state that the right side is worse than the left. He states that he has tried oral medications, heat and ice, topicals and physical therapy multiple times. He states the physical therapy made the symptoms worse. He does state that he has had injections back in 1991 and that one of the injections he had actually lasted 5 years before he started experiencing worsening pain. He does state the pain now is constant and does interfere with his ability to perform activities of daily living such as cooking and cleaning. He is interested in any options we may be able to provide. He is currently taking gabapentin and Tylenol. His Tk has been reviewed and is appropriate. CC: Minnie Price APRN [facility] Disclaimer: The information contained in this section may have been updated after the patient was seen, as this information can be updated by other users. Medical History Atypical pneumonia Pulmonary emphysema Smoking greater than 30 pack years History of rheumatoid arthritis Acute and chronic respiratory failure with hypoxia Viral pneumonia Grief SOBOE (shortness of breath on exertion) Acute on chronic heart failure with preserved ejection fraction (HFpEF) Deviated nasal septum Macular degeneration CHF (congestive heart failure) COPD exacerbation COPD (chronic obstructive pulmonary disease) Major depressive disorder Callus Abnormal nuclear cardiac imaging test Angina pectoris Hypertension Hyperlipidemia Abnormal result of cardiovascular function study Tachycardia Unstable angina Dizziness GERD (gastroesophageal reflux disease) Abnormal cardiovascular stress test Typical angina Tobacco dependence syndrome Abnormal EKG CAD (coronary artery disease) Edema Dyspnea Chest pain Surgical History History of hernia surgery H/O removal of cyst History of cardiac cath H/O heart artery stent History of coronary artery stent placement Family History Other No significant family history Social History (Updated 09/28/24 @ 10:38 by Serenity Inman RN) Smoking Status: Current every day smoker tobacco type: cigarettes packs per day: 1 and pipe alcohol intake: current alcohol intake frequency: a few times a month substance use type: former substance user and marijuana counseling given: No (patient refused) counseling provided: none current occupational status: disabled Travel in the last 8 weeks: None household members: children housing: house marital status: fci: No caffeine: Yes physical activity: none Are you experiencing any nausea/vomitting?: No Review of Systems Review of Systems Review of systems:: pertinent systems reviewed and negative unless documented below Review of systems (narrative): Review of Systems: General: No recent weight changes, no fever, no sleep disturbances Respiratory: No cough, no shortness of air, no recurring pulmonary infections Cardiovascular/peripheral vascular: No chest pain, no palpitations, no edema, no shortness of breath Gastrointestinal: No new onset incontinence, normal bowel movements reported Genitourinary: No new onset incontinence Musculoskeletal: Low back pain, bilateral hip pain Psychiatric: [Normal mood/affect] Neurological: [Denies weakness in extremities], [denies balance issues] Meds Home Medications and Allergies Home Medications ?Medication ?Instructions ?Recorded ?Confirmed ?Type albuterol sulfate 90 mcg/actuation 2 puff inhalation QIDP PRN 10/27/18 09/28/24 History aerosol inhaler Shortness Of Breath 25 days #9 grams tamsulosin 0.4 mg capsule 0.4 mg PO HS 90 days #90 caps 10/27/18 09/28/24 History gabapentin 300 mg capsule 300 mg PO TID 90 days #270 caps 10/10/19 09/28/24 History folic acid 1 mg tablet 1 mg PO DAILY 10/26/22 09/28/24 History methotrexate sodium 2.5 mg tablet 20 mg PO WEEKLY 10/26/22 09/28/24 History atorvastatin 80 mg tablet 80 mg PO HS 03/12/24 09/28/24 History nitroglycerin 0.4 mg sublingual 0.4 mg sublingual Q5MINP PRN Chest 03/12/24 09/28/24 History tablet Pain pantoprazole 40 mg tablet,delayed 40 mg PO DAILY 03/12/24 09/28/24 History release potassium chloride 10 mEq 10 meq PO DAILY 03/12/24 09/28/24 History tablet,extended release cholecalciferol (vitamin D3) 125 5,000 unit PO DAILY 04/17/24 09/28/24 History mcg (5,000 unit) tablet (Vitamin D3) clopidogrel 75 mg tablet 75 mg PO DAILY 04/17/24 09/28/24 History dutasteride 0.5 mg capsule 0.5 mg PO DAILY 04/17/24 09/28/24 History lamotrigine 150 mg tablet 150 mg PO BID 04/17/24 09/28/24 History ranolazine 1,000 mg 1,000 mg PO BID 30 days #60 tabs 04/17/24 09/28/24 Rx tablet,extended release,12 hr vit C 250 mg-vit E 90 mg-zinc 40 1 cap PO BID 04/17/24 09/28/24 History mg-copper 1 [id number] capsule (PreserVision AREDS-2) spironolactone 50 mg tablet 50 mg PO DAILY #90 tabs 06/16/24 09/28/24 Rx aspirin 81 mg tablet,delayed 81 mg PO DAILY 07/13/24 09/28/24 History release furosemide 40 mg tablet 80 mg PO DAILY 07/13/24 09/28/24 History isosorbide mononitrate 60 mg 60 mg PO BID 07/13/24 09/28/24 History tablet,extended release 24 hr methocarbamol 500 mg tablet 500 mg PO Q8HP PRN muscle spasm 07/13/24 09/28/24 History metoprolol succinate 100 mg 100 mg PO HS 07/13/24 09/28/24 History tablet,extended release 24 hr trazodone 50 mg tablet 50 mg PO HSP PRN Insomnia 07/13/24 09/28/24 History vibegron 75 mg tablet (Gemtesa) 75 mg PO HS 07/13/24 09/28/24 History clonazepam 1 mg tablet 1 mg PO BIDP PRN anxiety 3 days #6 07/15/24 09/28/24 Rx tabs ipratropium 0.5 mg-albuterol 3 mg 3 ml inhalation Q6H PRN shortness 07/15/24 09/28/24 Rx (2.5 mg base)/3 mL nebulization of breath or wheezing 30 days #180 soln mL ofloxacin 0.3 % eye drops 1 drp Eye-Right .four times a day 08/10/24 09/28/24 History prednisolone acetate 1 % eye 1 drp Eye-Right .four times a day 08/10/24 09/28/24 History drops,suspension amlodipine 10 mg tablet See Rx Instructions .Route 08/21/24 09/28/24 Rx .COMPLEX #90 tabs fluticasone fur. 100 mcg-umeclid 1 inh inhalation DAILY #60 ea 08/28/24 09/28/24 Rx 62.5 mcg-vilant 25 mcg inhalat.powder (Trelegy Ellipta) lumateperone 42 mg capsule 42 mg PO DAILY #30 caps 09/27/24 09/28/24 Rx (Caplyta) New Prescriptions to Start Prescriptions: Allergies Allergy/AdvReac Type Severity Reaction Status Date / Time nickel (NICKEL) Allergy Unknown I-RASH Verified 08/10/24 13:03 quetiapine (From SEROQUEL) Allergy Unknown I-RASH Verified 08/10/24 13:03 NSAIDS (Non-Steroidal AdvReac Verified 08/10/24 13:03 Anti-Inflamma Objective Vital signs: Pulse Resp BP Pulse Ox O2 Del Method 82 18 131/72 94 L Room Air 09/28/24 10:20 09/28/24 10:20 09/28/24 10:20 09/28/24 10:20 09/28/24 10:20 Narrative: Physical Exam: General: Alert and oriented x3, no acute distress, pleasant and cooperative Lungs: Respirations even and unlabored, symmetrical chest expansion Eyes: PERRL Musculoskeletal: Flexion and extension of lumbar [spine] somewhat guarded secondary to pain, [antalgic gait noted] point tenderness along bilateral SIs with positive bilateral Jenn's, Clare's, Gaenslen's, compression and distraction exam Neurological: Speech clear, no gross sensory deficit Additional findings Additional findings: FINDINGS: Bones/joints: No compression fractures. Mild multilevel degenerative disc disease. Severe L4-L5 and L5-S1 facet arthropathy. Subtle grade 1 anterolisthesis of L4 over L5. Soft tissues: Unremarkable. Vasculature: Mild aortoiliac atherosclerotic plaque. IMPRESSION: 1. No compression fractures. 2. Mild/moderate lumbar spine degenerative change. Assessment and Plan *Assessment and plan (1) Bilateral sacroiliitis: Status: Acute Category: Medical Code(s): M46.1 - Sacroiliitis, not elsewhere classified (2) Degenerative disc disease: Status: Acute Category: Medical (3) Bilateral hip pain: Status: Acute Category: Medical Code(s): M25.551 - Pain in right hip; M25.552 - Pain in left hip Plan Patient is experiencing worsening pain along the low back and bilateral hips. They did have limited range of motion of the lumbar spine along with point tenderness along bilateral SI joints and a positive bilateral Jenn's, Clare's, Gaenslen's, compression and distraction exam. I did discuss with the patient that I do believe they would benefit from bilateral SI injections. Risk and benefits were discussed with the patient and they would like to proceed forward with this option. Patient has tried and failed conservative therapy including oral medication, heat and ice, topicals, physical therapy and continued at home stretching exercise for longer than 12 weeks that was previously physician guided. Patient will be scheduled for bilateral SI injections under fluoroscopy. I will also order the patient a compounded cream Patient has been instructed to contact the clinic with any concerns before the next appointment. Dr. Alanis has reviewed this note and agrees with this plan of care. This note was dictated using voice recognition software and make contain errors or omissions. All injections are used with Lidocaine or Bupivacaine and Depo Medrol.
== END 2024-09-28 23:59 | disposition home or self-care (01) ==
LOC: SC.PAIN 10:06
PROVIDERS: PCP Nurse Practitioner Family; Visit Provider Nurse Practitioner Family
DX: M46.1 Sacroiliitis, not elsewhere classified (principal); M25.551 Pain in right hip; M25.552 Pain in left hip; Z73.89 Other problems related to life management difficulty; F17.210 Nicotine dependence, cigarettes, uncomplicated; Z79.899 Other long term (current) drug therapy
CPT/HCPCS: 99202; G0463

== ENCOUNTER 2024-10-16 14:28 | Outpatient (CLI) | payer MEDICARE, SELFPAY ==
--- NOTE | 2024-10-16 14:29 | CT_ITS ---
FINAL REPORT CLINICAL HISTORY: Lung nodule COMPARISON: CTA of the chest 07/13/2024 LDCT of the chest 02/21/2024 FINDINGS: CT CHEST without contrast TECHNIQUE: Axial CT without contrast This study was performed with techniques to keep radiation doses as low as reasonably achievable, (ALARA). Individualized dose reduction techniques using automated exposure control or adjustment of mA and/or kV according to the patient's size were employed. FINDINGS: No acute lung disease is present . There is a stable small calcified granuloma present in the right upper lobe. No suspicious nodules are identified. No acute pulmonary opacities are present. No pleural or pericardial effusion is seen . No adenopathy or mass lesion is present . Advanced coronary artery calcifications are present. IMPRESSION: No suspicious nodule, adenopathy, or pulmonary opacities are identified. This study was performed using automated techniques to achieve radiation exposure as low as reasonably achievable Reviewed, Interpreted and Dictated by Gladis Carbajal MD Transcribed by Hermelinda Bowling Authenticated and [facility]
== END 2024-10-16 23:59 | disposition home or self-care (01) ==
LOC: RAD 14:29
PROVIDERS: PCP Nurse Practitioner Family; Visit Provider Internal Medicine Pulmonary Disease
DX: R06.09 Other forms of dyspnea (principal); R91.8 Other nonspecific abnormal finding of lung field
CPT/HCPCS: 71250; 94010; 94618; 94727; 94729

== ENCOUNTER 2024-10-24 09:44 | Day surgery (SDC) | payer MEDICARE, SELFPAY ==
[2024-10-24 09:45] VITALS: BP 118/62; PULSE 63; RESP 16; TEMP 36.6; O2SAT 96; BMI 43.7
[2024-10-24 09:55] VITALS: BP 118/62; PULSE 63; RESP 18; O2SAT 96
[2024-10-24] MEDS: BUPIVACAINE 0.25% 10ML INJ 25 MG IJ (09:55)
[2024-10-24] MEDS: LIDOCAINE 1% 5ML PF VIAL 5 ML (09:55)
[2024-10-24] MEDS: methylPREDNISolone ACETATE 80MG/ML VIAL 80 MG (09:55)
[2024-10-24 09:57] VITALS: BP 118/62; PULSE 63; RESP 18; O2SAT 96
[2024-10-24 10:12] VITALS: BP 120/66; PULSE 56; RESP 16; O2SAT 100
--- NOTE | 2024-10-24 10:20 | P.PCN_ITS ---
Procedure Date: 10/24/24 Time: 09:55 Anesthesiologist:: Tk Engle CRNA Complications:: None Pre-procedure Diagnosis:: Bilateral sacroiliitis Post-procedure Diagnosis:: Same Indications for Procedure:: Patient is a very pleasant 64-year-old male who comes our clinic today for bilateral sacroiliac joint injections of cortisone and local anesthetic. Patient describes low lumbar back pain off the midline bilaterally. Bilateral posterior hip pain. Difficulty transitioning from sitting to standing. Difficulty with ambulation. He rates his pain 8/10. Procedure Details:: Procedure: Bilateral sacroiliac joint injections under fluoroscopy Informed consent was obtained and the risks and benefits of the procedure were explained to the patient.~ The patient was taken to the procedure room and noninvasive monitors were placed including a noninvasive blood pressure cuff and pulse oximeter.~ The patient was placed prone on the procedure table. Both hips were cleansed using Betadine as a cleansing solution. C-arm fluoroscopy was used to view the right sacroiliac joint.~ The skin and subcutaneous tissues were anesthetized using lidocaine 1.5% and a 25-gauge needle.~ After this, a 22-gauge spinal needle was inserted under fluoroscopic guidance into the inferior aspect of the right sacroiliac joint.~ Omnipaque dye was injected and good spread was seen throughout the joint.~ After this, approximately 5 mL of bupivacaine, 0.25% and Depo-Medrol, 40 mg was incrementally injected into the right sacroiliac joint. We then moved to the left sacroiliac joint.~ The skin and subcutaneous tissues were anesthetized using lidocaine 1.5% and a 25-gauge needle.~ After this, a 22- gauge spinal needle was inserted under fluoroscopic guidance into the inferior aspect of the left sacroiliac joint.~ Omnipaque dye was injected and good spread was seen throughout the joint. After this, approximately 5 mL of bupivacaine, 0.25% and Depo-Medrol, 40 mg was incrementally injected into the left sacroiliac joint.~ The patient tolerated the procedure well with no complications. The patient was observed in the Pain Clinic and then was discharged home neurologically intact. Plan and Disposition:: Patient was discharged without incident.
== END 2024-10-24 10:12 | disposition home or self-care (01) ==
PROVIDERS: PCP Nurse Practitioner Family; Visit Provider Nurse Anesthetist, Certified Registered
DX: M46.1 Sacroiliitis, not elsewhere classified (principal)
CPT/HCPCS: 27096; G0260; J1010

== ENCOUNTER 2024-11-08 11:34 | Outpatient (POV) | payer MEDICARE, SELFPAY ==
--- NOTE | 2024-11-08 11:41 | EXP.PAIN.SOA ---
[facility] Disclaimer: The information contained in this section may have been updated after the patient was seen, as this information can be updated by other users. Medical History (Updated 11/08/24 @ 11:54 by Minnie Price APRN) Snoring Daytime somnolence Fatigue Atypical pneumonia Pulmonary emphysema Smoking greater than 30 pack years History of rheumatoid arthritis Acute and chronic respiratory failure with hypoxia Viral pneumonia Grief SOBOE (shortness of breath on exertion) Acute on chronic heart failure with preserved ejection fraction (HFpEF) Deviated nasal septum Macular degeneration CHF (congestive heart failure) COPD exacerbation COPD (chronic obstructive pulmonary disease) Major depressive disorder Callus Abnormal nuclear cardiac imaging test Angina pectoris Hypertension Hyperlipidemia Abnormal result of cardiovascular function study Tachycardia Unstable angina Dizziness GERD (gastroesophageal reflux disease) Abnormal cardiovascular stress test Typical angina Tobacco dependence syndrome Abnormal EKG CAD (coronary artery disease) Edema Dyspnea Chest pain Surgical History History of hernia surgery H/O removal of cyst History of cardiac cath H/O heart artery stent History of coronary artery stent placement Family History Other No significant family history Social History Smoking Status: Current every day smoker tobacco type: cigarettes packs per day: 1 and pipe alcohol intake: current alcohol intake frequency: a few times a month substance use type: former substance user and marijuana counseling given: No (patient refused) counseling provided: none current occupational status: other Travel in the last 8 weeks: None household members: children housing: house marital status: penitentiary: No caffeine: Yes physical activity: none PM Subjective & Objective Subjective Subjective:: Patient is a pleasant 64-year-old male who presents today for follow-up of his bilateral SI injections on 10/24/2024. Today he rates his pain a 4-5 out of 10 for his back and a 6 out of his hip along the right side. Patient does state that he did get at least 80% initially from this injections. He states that it did last a good full week at that level and then is now is down to about 50%. Patient states that his current pain is still bothering him significantly and interfering with his ability perform activities of daily living such as cooking and cleaning. Patient does state certain movements are worse such as bending, twisting and lifting. Patient is interested in additional injection therapy to help ease down this pain. Patient has continued conservative therapy with no additional changes.Patient is prescribed compounded cream from our office and clonazepam and gabapentin from outside providers. His Tk has been reviewed and is appropriate. Review of Systems: General: No recent weight changes, no fever, no sleep disturbances Respiratory: No cough, no shortness of air, no recurring pulmonary infections Cardiovascular/peripheral vascular: No chest pain, no palpitations, no edema, no shortness of breath Gastrointestinal: No new onset incontinence, normal bowel movements reported Genitourinary: No new onset incontinence Musculoskeletal: Low back pain Psychiatric: [Normal mood/affect] Neurological: [Denies weakness in extremities], [denies balance issues] Pain at rest (0-10 scale): 5 Objective Objective:: Physical Exam: General: Alert and oriented x3, no acute distress, pleasant and cooperative Lungs: Respirations even and unlabored, symmetrical chest expansion Eyes: PERRL Musculoskeletal: Flexion and extension of lumbar [spine] somewhat guarded secondary to pain, [antalgic gait noted] positive Kemps test Neurological: Speech clear, no gross sensory deficit Has patient had previous pain injection?: Yes Percent improvement in pain since last injection: 80% Conservative treatment options previously tried: Home exercise plan Length of treatment: Longer than 12 weeks Meds Home Medications and Allergies Home Medications ?Medication ?Instructions ?Recorded ?Confirmed ?Type albuterol sulfate 90 mcg/actuation 2 puff inhalation QIDP PRN 10/27/18 11/08/24 History aerosol inhaler Shortness Of Breath 25 days #9 grams tamsulosin 0.4 mg capsule 0.4 mg PO HS 90 days #90 caps 10/27/18 11/08/24 History folic acid 1 mg tablet 1 mg PO DAILY 10/26/22 11/08/24 History methotrexate sodium 2.5 mg tablet 20 mg PO WEEKLY 10/26/22 11/08/24 History atorvastatin 80 mg tablet 80 mg PO HS 03/12/24 11/08/24 History nitroglycerin 0.4 mg sublingual 0.4 mg sublingual Q5MINP PRN Chest 03/12/24 11/08/24 History tablet Pain pantoprazole 40 mg tablet,delayed 40 mg PO DAILY 03/12/24 11/08/24 History release potassium chloride 10 mEq 10 meq PO DAILY 03/12/24 11/08/24 History tablet,extended release cholecalciferol (vitamin D3) 125 5,000 unit PO DAILY 04/17/24 11/08/24 History mcg (5,000 unit) tablet (Vitamin D3) dutasteride 0.5 mg capsule 0.5 mg PO DAILY 04/17/24 11/08/24 History lamotrigine 150 mg tablet 150 mg PO BID 04/17/24 11/08/24 History ranolazine 1,000 mg 1,000 mg PO BID 30 days #60 tabs 04/17/24 11/08/24 Rx tablet,extended release,12 hr vit C 250 mg-vit E 90 mg-zinc 40 1 cap PO BID 04/17/24 11/08/24 History mg-copper 1 [id number] capsule (PreserVision AREDS-2) spironolactone 50 mg tablet 50 mg PO DAILY #90 tabs 06/16/24 11/08/24 Rx aspirin 81 mg tablet,delayed 81 mg PO DAILY 07/13/24 11/08/24 History release furosemide 40 mg tablet 80 mg PO DAILY 07/13/24 11/08/24 History isosorbide mononitrate 60 mg 60 mg PO BID 07/13/24 11/08/24 History tablet,extended release 24 hr metoprolol succinate 100 mg 100 mg PO HS 07/13/24 11/08/24 History tablet,extended release 24 hr trazodone 50 mg tablet 50 mg PO HSP PRN Insomnia 07/13/24 11/08/24 History vibegron 75 mg tablet (Gemtesa) 75 mg PO HS 07/13/24 11/08/24 History clonazepam 1 mg tablet 1 mg PO BIDP PRN anxiety 3 days #6 07/15/24 11/08/24 Rx tabs ipratropium 0.5 mg-albuterol 3 mg 3 ml inhalation Q6H PRN shortness 07/15/24 11/08/24 Rx (2.5 mg base)/3 mL nebulization of breath or wheezing 30 days #180 soln mL amlodipine 10 mg tablet See Rx Instructions .Route 08/21/24 11/08/24 Rx .COMPLEX #90 tabs lumateperone 42 mg capsule 42 mg PO DAILY #30 caps 09/27/24 11/08/24 Rx (Caplyta) doxycycline hyclate 100 mg capsule 100 mg PO TID 10/10/24 11/08/24 History clopidogrel 75 mg tablet See Rx Instructions .Route 10/16/24 11/08/24 Rx .COMPLEX #90 tabs gabapentin 600 mg tablet 600 mg PO . 10/23/24 11/08/24 History nicotine (polacrilex) 2 mg gum 2 mg buccal Q2H PRN nicotine 10/23/24 11/08/24 Rx cravings #100 ea mirtazapine 15 mg tablet (Remeron) 7.5 - 15 mg (0.5 - 1 x 15 mg) PO 10/24/24 11/08/24 Rx DAILY #30 tabs fluticasone fur. 100 mcg-umeclid See Rx Instructions .Route 10/30/24 11/08/24 Rx 62.5 mcg-vilant 25 mcg .COMPLEX #60 blisters inhalat.powder (Trelegy Ellipta) New Prescriptions to Start Prescriptions: Allergies Allergy/AdvReac Type Severity Reaction Status Date / Time nickel (NICKEL) Allergy Unknown I-RASH Verified 10/24/24 14:07 quetiapine (From SEROQUEL) Allergy Unknown I-RASH Verified 10/24/24 14:07 NSAIDS (Non-Steroidal AdvReac Verified 10/24/24 14:07 Anti-Inflamma Assessment and Plan *Assessment and plan (1) Degenerative disc disease: Status: Acute Category: Medical (2) Bilateral hip pain: Status: Acute Category: Medical Code(s): M25.551 - Pain in right hip; M25.552 - Pain in left hip (3) Bilateral sacroiliitis: Status: Acute Category: Medical Code(s): M46.1 - Sacroiliitis, not elsewhere classified (4) Lumbar facet arthropathy: Status: Acute Category: Medical Code(s): M47.816 - Spondylosis without myelopathy or radiculopathy, lumbar region Plan Patient is experiencing significant pain in his low back that is worse with bending, twisting or lifting. Patient did have limited range of motion of his lumbar spine with a positive Kemps test during today's visit. I did discuss with the patient that I do believe he would benefit from a lumbar medial branch block. Risk and benefits were discussed with the patient and he would like to proceed forward with this plan of care. Patient has tried and failed conservative therapy including oral medications, heat and ice, topicals, at home stretching exercise for longer than 12 weeks that was physician guided. Patient has tried and failed physical therapy and it made his pain worse. Patient has been experiencing chronic low back pain for years. Patient was counseled that if he does get significant relief with his first lumbar medial branch block that we will plan on repeating it with the plan to progress forward to a lumbar RFA at a later date. Patient agrees with this plan of care. Patient will be scheduled for his first diagnostic lumbar medial branch block bilaterally L4-L5 and L5-S1 under fluoroscopy. Patient did have severe facet arthropathy noted on his most recent x-ray. FINDINGS: Bones/joints: No compression fractures. Mild multilevel degenerative disc disease. Severe L4-L5 and L5-S1 facet arthropathy. Subtle grade 1 anterolisthesis of L4 over L5. Soft tissues: Unremarkable. Vasculature: Mild aortoiliac atherosclerotic plaque. IMPRESSION: 1. No compression fractures. 2. Mild/moderate lumbar spine degenerative change. Patient has been instructed to contact the clinic with any concerns before the next appointment. Dr. Alanis has reviewed this note and agrees with this plan of care. This note was dictated using voice recognition software and make contain errors or omissions. All injections are used with Lidocaine, Bupivacaine and Depo Medrol. Occasionally urine drug screen is needed to verify patient's compliance with our office pain contract. This is ordered based off specific treatments related to chronic pain with the potential to abuse certain medications.
[2024-11-08 11:47] VITALS: BP 137/68; PULSE 69; RESP 14; O2SAT 100; BMI 43.7
== END 2024-11-08 23:59 | disposition home or self-care (01) ==
PROVIDERS: PCP Nurse Practitioner Family; Visit Provider Nurse Practitioner Family
DX: M25.551 Pain in right hip (principal); M25.552 Pain in left hip; M46.1 Sacroiliitis, not elsewhere classified; M47.816 Spondylosis without myelopathy or radiculopathy, lumbar region; F17.210 Nicotine dependence, cigarettes, uncomplicated; Z73.89 Other problems related to life management difficulty; Z79.899 Other long term (current) drug therapy
CPT/HCPCS: 99212; G0463

== ENCOUNTER 2024-11-16 11:08 | Outpatient (POV) | payer MEDICARE, SELFPAY ==
[2024-11-16 11:20] VITALS: BP 132/66; PULSE 57; RESP 14; O2SAT 96; BMI 42.9
--- NOTE | 2024-11-16 11:50 | EXP.PAIN.SOA ---
[facility] Disclaimer: The information contained in this section may have been updated after the patient was seen, as this information can be updated by other users. Medical History Snoring Daytime somnolence Fatigue Atypical pneumonia Pulmonary emphysema Smoking greater than 30 pack years History of rheumatoid arthritis Acute and chronic respiratory failure with hypoxia Viral pneumonia Grief SOBOE (shortness of breath on exertion) Acute on chronic heart failure with preserved ejection fraction (HFpEF) Deviated nasal septum Macular degeneration CHF (congestive heart failure) COPD exacerbation COPD (chronic obstructive pulmonary disease) Major depressive disorder Callus Abnormal nuclear cardiac imaging test Angina pectoris Hypertension Hyperlipidemia Abnormal result of cardiovascular function study Tachycardia Unstable angina Dizziness GERD (gastroesophageal reflux disease) Abnormal cardiovascular stress test Typical angina Tobacco dependence syndrome Abnormal EKG CAD (coronary artery disease) Edema Dyspnea Chest pain Surgical History History of hernia surgery Two reported operations H/O removal of cyst History of cardiac cath Reported total of 10 stents placed H/O heart artery stent Reported total of 10 stents placed History of coronary artery stent placement Family History Other No significant family history Social History Smoking Status: Current every day smoker tobacco type: cigarettes packs per day: 1 and pipe alcohol intake: current alcohol intake frequency: a few times a month substance use type: former substance user and marijuana counseling given: No (patient refused) counseling provided: none current occupational status: other Travel in the last 8 weeks: None household members: children housing: house marital status: penitentiary: No caffeine: Yes physical activity: none Have you lived/traveled outside US in past 30 days?: No Contact w/someone who lives/traveled outside US past 30 days?: No Exposure to someone with infectious disease in past 14 days?: No Do you have a fever (greater than 100.4 F or 38 C)?: No Have you tested positive for COVID-19: No Exposed to someone with COVID-19 in past 14 days?: No Do you have a sore throat?: No Do you have a cough?: No Do you have any weakness?: No Do you have any diarrhea?: No Are you experiencing any unusual bleeding?: No Do you have any muscle aches/pain?: No Do you have any abdominal pain?: No Are you experiencing loss of taste or smell?: No PM Subjective & Objective Subjective Subjective:: Patient is a pleasant 64-year-old male who presents today for follow-up. Today he rates his pain a 6 out of 10. He states he still has the chronic low back pain and primarily the right hip pain. He states that the last injections we did back in September have really done great for the left hip. Patient is scheduled for his first diagnostic lumbar medial branch block bilaterally L4-L5 and L5-S1 coming up in November. Patient denies any new falls or injuries. He does state that he is still using the compounded cream we prescribed him but that from time to time when the pain does go up it is very bothersome like yesterday. Patient is currently prescribed clonazepam and gabapentin from outside providers. His Tk has been reviewed and is appropriate. Review of Systems: General: No recent weight changes, no fever, no sleep disturbances Respiratory: No cough, no shortness of air, no recurring pulmonary infections Cardiovascular/peripheral vascular: No chest pain, no palpitations, no edema, no shortness of breath Gastrointestinal: No new onset incontinence, normal bowel movements reported Genitourinary: No new onset incontinence Musculoskeletal: Low back pain, left hip pain Psychiatric: [Normal mood/affect] Neurological: [Denies weakness in extremities], [denies balance issues] Pain at rest (0-10 scale): 6 Objective Objective:: Physical Exam: General: Alert and oriented x3, no acute distress, pleasant and cooperative Lungs: Respirations even and unlabored, symmetrical chest expansion Eyes: PERRL Musculoskeletal: Flexion and extension of lumbar [spine] somewhat guarded secondary to pain, [antalgic gait noted] Neurological: Speech clear, no gross sensory deficit Has patient had previous pain injection?: No Conservative treatment options previously tried: Home exercise plan Length of treatment: Longer than 12 weeks Meds Home Medications and Allergies Home Medications ?Medication ?Instructions ?Recorded ?Confirmed ?Type albuterol sulfate 90 mcg/actuation 2 puff inhalation QIDP PRN 10/27/18 11/16/24 History aerosol inhaler Shortness Of Breath 25 days #9 grams tamsulosin 0.4 mg capsule 0.4 mg PO HS 90 days #90 caps 10/27/18 11/16/24 History folic acid 1 mg tablet 1 mg PO DAILY 10/26/22 11/16/24 History methotrexate sodium 2.5 mg tablet 20 mg PO WEEKLY 10/26/22 11/16/24 History atorvastatin 80 mg tablet 80 mg PO HS 03/12/24 11/16/24 History nitroglycerin 0.4 mg sublingual 0.4 mg sublingual Q5MINP PRN Chest 03/12/24 11/16/24 History tablet Pain pantoprazole 40 mg tablet,delayed 40 mg PO DAILY 03/12/24 11/16/24 History release potassium chloride 10 mEq 10 meq PO DAILY 03/12/24 11/16/24 History tablet,extended release cholecalciferol (vitamin D3) 125 5,000 unit PO DAILY 04/17/24 11/16/24 History mcg (5,000 unit) tablet (Vitamin D3) dutasteride 0.5 mg capsule 0.5 mg PO DAILY 04/17/24 11/16/24 History lamotrigine 150 mg tablet 150 mg PO BID 04/17/24 11/16/24 History ranolazine 1,000 mg 1,000 mg PO BID 30 days #60 tabs 04/17/24 11/16/24 Rx tablet,extended release,12 hr vit C 250 mg-vit E 90 mg-zinc 40 1 cap PO BID 04/17/24 11/16/24 History mg-copper 1 ma-[id number] capsule (PreserVision AREDS-2) spironolactone 50 mg tablet 50 mg PO DAILY #90 tabs 06/16/24 11/16/24 Rx aspirin 81 mg tablet,delayed 81 mg PO DAILY 07/13/24 11/16/24 History release furosemide 40 mg tablet 80 mg PO DAILY 07/13/24 11/16/24 History isosorbide mononitrate 60 mg 60 mg PO BID 07/13/24 11/16/24 History tablet,extended release 24 hr metoprolol succinate 100 mg 100 mg PO HS 07/13/24 11/16/24 History tablet,extended release 24 hr trazodone 50 mg tablet 50 mg PO HSP PRN Insomnia 07/13/24 11/16/24 History vibegron 75 mg tablet (Gemtesa) 75 mg PO HS 07/13/24 11/16/24 History clonazepam 1 mg tablet 1 mg PO BIDP PRN anxiety 3 days #6 07/15/24 11/16/24 Rx tabs ipratropium 0.5 mg-albuterol 3 mg 3 ml inhalation Q6H PRN shortness 07/15/24 11/16/24 Rx (2.5 mg base)/3 mL nebulization of breath or wheezing 30 days #180 soln mL amlodipine 10 mg tablet See Rx Instructions .Route 08/21/24 11/16/24 Rx .COMPLEX #90 tabs lumateperone 42 mg capsule 42 mg PO DAILY #30 caps 09/27/24 11/16/24 Rx (Caplyta) doxycycline hyclate 100 mg capsule 100 mg PO TID 10/10/24 11/16/24 History clopidogrel 75 mg tablet See Rx Instructions .Route 10/16/24 11/16/24 Rx .COMPLEX #90 tabs gabapentin 600 mg tablet 600 mg PO . 10/23/24 11/16/24 History nicotine (polacrilex) 2 mg gum 2 mg buccal Q2H PRN nicotine 10/23/24 11/16/24 Rx cravings #100 ea mirtazapine 15 mg tablet (Remeron) 7.5 - 15 mg (0.5 - 1 x 15 mg) PO 10/24/24 11/16/24 Rx DAILY #30 tabs fluticasone fur. 100 mcg-umeclid See Rx Instructions .Route 10/30/24 11/16/24 Rx 62.5 mcg-vilant 25 mcg .COMPLEX #60 blisters inhalat.powder (Trelegy Ellipta) lamotrigine 25 mg tablet (Lamictal) 25 mg PO BID #60 tabs 11/13/24 11/16/24 Rx New Prescriptions to Start Prescriptions: Allergies Allergy/AdvReac Type Severity Reaction Status Date / Time nickel (NICKEL) Allergy Unknown I-RASH Verified 11/13/24 13:55 quetiapine (From SEROQUEL) Allergy Unknown I-RASH Verified 11/13/24 13:55 NSAIDS (Non-Steroidal AdvReac Verified 11/13/24 13:55 Anti-Inflamma Assessment and Plan *Assessment and plan (1) Lumbar facet arthropathy: Status: Acute Category: Medical Code(s): M47.816 - Spondylosis without myelopathy or radiculopathy, lumbar region Plan I did discuss at length with the patient that I do believe his upcoming injection should really make improvement of his overall low back and possibly the left hip pain. Patient was counseled on days that he is experiencing worsening pain we can send in a muscle relaxer. Patient is agreeable to this option. I will send in methocarbamol 750 mg 3 times daily as needed with a 2-week dose. Patient was not given an additional follow-up appointment today as he does already have an appointment date for his next injection. We will follow-up with him after this. Patient agrees with plan of care. Patient has been instructed to contact the clinic with any concerns before the next appointment. Dr. Alanis has reviewed this note and agrees with this plan of care. This note was dictated using voice recognition software and make contain errors or omissions. All injections are used with Lidocaine, Bupivacaine and Depo Medrol. Occasionally urine drug screen is needed to verify patient's compliance with our office pain contract. This is ordered based off specific treatments related to chronic pain with the potential to abuse certain medications.
== END 2024-11-16 23:59 | disposition home or self-care (01) ==
PROVIDERS: PCP Nurse Practitioner Family; Visit Provider Nurse Practitioner Family
DX: M47.816 Spondylosis without myelopathy or radiculopathy, lumbar region (principal); F17.210 Nicotine dependence, cigarettes, uncomplicated; Z79.899 Other long term (current) drug therapy
CPT/HCPCS: 99212; G0463

== ENCOUNTER 2024-11-22 08:21 | Day surgery (SDC) | payer MEDICARE, SELFPAY ==
[2024-11-22] VITALS (13 sets, daily range): BP systolic 109–134; BP diastolic 57–75; PULSE 51–74; RESP 16–20; O2SAT 90–97; BMI 42.7
--- NOTE | 2024-11-22 07:02 | IR_ITS ---
APPROVED REPORT Patient Location: Outpatient PROCEDURES Left heart catheterization Left ventriculogram Selective coronary angiogram INDICATION Known coronary artery disease, Angina pectoris, Preoperative evaluation Informed consent was obtained prior to the procedure. COMPLICATIONS NONE Estimated Blood Loss: LESS THAN 10 ML TECHNIQUE One percent lidocaine used to anesthetize the right anterior aspect of the wrist. The right radial artery was accessed via the Seldinger technique. A 6 Salvadorean sheath was placed in the right radial artery. 2.5 mg of Verapamil, 800 mcg of nitroglycerin, 1mg Lidocaine and 5000 U Heparin were given through the arterial sheath. The JL 3 guide catheter was also used to perform left heart catheterization, left ventriculogram and selective coronary angiogram. At the end of the procedure the sheath was removed good hemostasis was achieved using Traclet band, patient was transferred to the postop holding area in stable condition. ANGIOGRAPHIC RESULTS The left main artery Normal The left anterior descending artery Has stents in the proximal segment which are widely patent free of in-stent restenosis excellent proximal distal transitioning. There is a gap between the proximal LAD stent in the mid LAD stent which is also widely patent. The remaining LAD is widely patent the first diagonal artery has mild 10% luminal regularities The circumflex artery Is nondominant and has stents in the proximal to mid segment which are widely patent minimal in-stent restenosis with excellent proximal distal transitioning. There are diffuse 10 to 20% luminal regularities The right coronary artery Is dominant and has stents in the proximal mid and distal segment which are widely patent in the proximal mid segment with 30% concentric distal in-stent restenosis The POLK ventriculogram reveals Normal 65% The left ventricular end-diastolic pressure Elevated at 20 mmHg IMPRESSION Patent coronary arteries as described above Normal ejection fraction Elevated LVEDP PLAN 1. Continue medical management 2. Patient is a low and acceptable risk to proceed with elective surgery Electronically signed by : Dillon Sky MD 11/22/2024 10:46:19
[2024-11-22 08:43] LABS: Basophils % 0.5 % (0.1-2.0); Eosinophils # 0.1 Kmm3 (0.0-0.4); Eosinophils % 1.6 % (0.1-12.0); Hematocrit 40.9 % (42.0-52.0); Lymphocytes # 1.2 K/mm3 (0.7-4.5); Lymphocytes % 14.1 % (10-50); Mean Corpuscular HGB Conc 34.2 g/dL (31.8-35.4); Mean Corpuscular Hemoglobin 35.7 pg (27.0-31.2); Mean Corpuscular Volume 104.3 fl (80-94); Mean Platelet Volume 8.5 fl (7.4-10.4); Monocytes # 0.6 K/mm3 (0.1-1.0); Monocytes % 7.7 % (1.7-9.3); Neutrophils # 6.1 K/mm3 (1.8-7.8); Neutrophils % 74.9 % (37.0-80.0); Nucleated Red Blood Cells # 0 10^3/uL; Nucleated Red Blood Cells % 0 %; Platelet Count 279 K/mm3 (142-424); Red Blood Count 3.92 M/mm3 (4.60-6.20); Red Cell Distribution Width-SD 53.1 fL; White Blood Count 8.2 K/mm3 (4.8-10.8)
[2024-11-22 08:51] LABS: Chloride 108 mmol/L (98-107)
[2024-11-22 08:52] LABS: Sodium 139 mmol/L (136-145)
[2024-11-22 08:54] LABS: Blood Urea Nitrogen 13 mg/dl (9-20); Creatinine Clearance Estimated 75 mL/min (50-200); Estimated Glomerular Filt Rate 84 ml/min (>60); GFR (African American) 102 ML/MIN (>60)
[2024-11-22 08:55] LABS: Calcium 9.2 mg/dl (8.4-10.2); Carbon Dioxide 27 mmol/L (22.0-30.0); Glucose 110 mg/dl (74-100)
[2024-11-22] MEDS: VERAPAMIL 2.5MG/ML 2ML VIAL 2.5 MG IV (09:09)
[2024-11-22] MEDS: NITROGLYCERIN 800MCG/8ML SYR (CATH LAB) 800 MCG IA (09:09)
[2024-11-22] MEDS: HEPARIN 1,000 UNITS/ML 10ML VIAL (CATH LAB) 5000 UNIT IV (09:10)
[2024-11-22] MEDS: HEPARIN 1,000 UNITS/500ML NS (CATH LAB) 3000 UNIT IV (09:10)
[2024-11-22] MEDS: LIDOCAINE 1% 10ML MDV 10 ML IJ (09:10)
[2024-11-22] MEDS: diphenhydrAMINE 50MG/ML VIAL 50 MG IV (09:10)
[2024-11-22] MEDS: 0.9 % SODIUM CHLORIDE 500 ML 25 ML IV (09:10)
[2024-11-22] MEDS: FENTANYL 100MCG/2ML VIAL 50 MCG IV (09:34)
[2024-11-22] MEDS: MIDAZOLAM HCL 1MG/ML 5ML VIAL 1 MG IV (09:35)
[2024-11-22] MEDS: IOPAMIDOL-370 (76%);100ML BOTTLE 60 ML IV (12:34)
== END 2024-11-22 12:56 | disposition home or self-care (01) ==
LOC: CATHLAB 08:22
PROVIDERS: PCP Nurse Practitioner Family; Visit Provider Internal Medicine
DX: I25.118 Atherosclerotic heart disease of native coronary artery with other forms of angina pectoris (principal); Z95.5 Presence of coronary angioplasty implant and graft; R94.31 Abnormal electrocardiogram [ECG] [EKG]; F17.210 Nicotine dependence, cigarettes, uncomplicated; I11.0 Hypertensive heart disease with heart failure; E78.2 Mixed hyperlipidemia; Z88.6 Allergy status to analgesic agent; Z88.8 Allergy status to other drugs, medicaments and biological substances; Z79.51 Long term (current) use of inhaled steroids; Z79.899 Other long term (current) drug therapy; Z79.82 Long term (current) use of aspirin; I50.33 Acute on chronic diastolic (congestive) heart failure; J44.9 Chronic obstructive pulmonary disease, unspecified
CPT/HCPCS: 80048; 85025; 93458; 99152; C1725; C1760; C1769; J1200; J1644; J3010; Q9967

== ENCOUNTER → 2024-11-23 09:43 | Outpatient (CLI) | payer MEDICARE, SELFPAY | LOC: SL 09:44 | PROVIDERS: PCP Nurse Practitioner Family; Visit Provider Internal Medicine Pulmonary Disease | DX: G47.30 Sleep apnea, unspecified (principal); G47.36 Sleep related hypoventilation in conditions classified elsewhere; R40.0 Somnolence; R06.83 Snoring | CPT/HCPCS: G0399 ==

== ENCOUNTER 2024-11-27 10:59 | Outpatient (RCR) | payer MEDICARE, SELFPAY ==
--- NOTE | 2024-11-27 14:43 | HMH.PTOPWND ---
Rehab Outpt Wound Evaluation Rehab OP Wound Evaluation Start: 11/27/24 14:22 Freq: Status: Active Protocol: Document 11/27/24 14:22 BIANKA (Rec: 11/27/24 14:43 PHORNE [id number]) E-signed By Kelton Wyman, PT Subjective/History History History This is the initial PT lymphedema eval for Abe Maharaj, 64 yowm who presents with B LE lymphedema x ~ 8-9 mos with insidious onset of symptoms. He reports increased pain and numbness tingling that is intermittent in B lower legs. He has significant PMH which could contribute to his condition including: RA, HTN, arterial sclerosis, CAD with stents x 10, CHF, cervical fusion, IBS, chronic low back pain, bladder issues, hernia repair x 2. He reports edema does not decrease with elevation of his extremities, but notes he sleeps in a recliner every night. He has purchased some short compression socks, but they are only ankle length. Subjective Subjective Current pain 5/10 in B lower legs. TTP 2/4 B lower legs and medial thigh. 2+ pitting edema noted from knee distally with 1+ pitting edema to B medial thigh. Mild erythema noted to B lower legs with multiple small varicose veins. Lymphedema Eval Classification of Lymphedema Secondary Lymphedema Yes Stemmer's sign Stemmer's Sign yes Stage of Lymphedema Lymphedema stages Stage II (Pitting edema, increased fibrosis w/ decreased pitting) Skin Changes Dry Skin Yes Skin Folds Yes Redness Yes Discoloration of Skin Yes Other Changes Yes Pain Scale Pain Scale (0-10) 5 Affected Extremities Areas Affected by Lymphedema/Edema Right Lower Extremity,Left Lower Extremity Lower Extremity Measurements Right MTP Measurement (cm) 26.2 Heel Measurement (cm) 36.5 10 cm Proximal to Lateral Malleoli 33.4 Measurement (cm) 20 cm Proximal to Lateral Malleoli 44.0 Measurement (cm) 30 cm Proximal to Lateral Malleoli 50.6 Measurement (cm) 40 cm Proximal to Lateral Malleoli 48.9 Measurement (cm) 50 cm Proximal to Lateral Malleoli 0 Measurement (cm) 60 cm Proximal to Lateral Malleoli 0 Measurement (cm) Lower Extremity Measurement Total (cm) 239.6 Left MTP Measurement (cm) 25.9 Heel Measurement (cm) 36.1 10 cm Proximal to Lateral Malleoli 39.9 Measurement (cm) 20 cm Proximal to Lateral Malleoli 49.8 Measurement (cm) 30 cm Proximal to Lateral Malleoli 52.6 Measurement (cm) 40 cm Proximal to Lateral Malleoli 52.2 Measurement (cm) 50 cm Proximal to Lateral Malleoli 0 Measurement (cm) 60 cm Proximal to Lateral Malleoli 0 Measurement (cm) Lower Extremity Measurement Total (cm) 256.5 Manual Lymphatic Drainage Treatment Area MLD Treatment Area Right Lower Extremity,Left Lower Extremity Wound Problems/Impairments Impairments Problems/Impairmments Palpation Tenderness,Impaired Endurance,Impaired Transfers, Impaired Gait Pattern,Impaired Walking,Impaired Standing, Impaired Shower/Bathing, Impaired Household Care, Increased Edema,Lymphedema Present,Subjective C/O Pain, Impaired Self Care/Self Management Prognosis Rehab Potential Good Comment Skilled therapy is indicated to reduce overall edema in B LE in order to decrease pain, improve ambulation, and return pt to PLOF with all ADLs. Pt has tried and failed conservative management per his report for greater than 4 months with elevation of B LE nightly, therapeutic exercise including ankle pumps and ambulation, and consistent compression garment wear without improvement of symptoms. Clinical Impression Consistent with Diagnosis Yes Short Term Goals Number of Weeks 4 Decreased Palpation Tenderness Yes: 1/4 B lower legs Decrease Edema Yes: 1+ pitting edema to B lower legs Decrease Subjective C/O Pain Yes: 3/10 B lower legs Patient to Understand Lymphedema Yes Treatment and Exercises Decrease Girth Measurments by (cm) Yes: B LE total by 5 cm [employer]ou[employer] Goals Number of Weeks 8 Decreased Palpation Tenderness Yes: 0/4 B lower legs Improve Ability For Household Care Yes Decrease Edema Yes: no pitting edema B lower legs Decrease Lymphedema Yes: No fibrotic edema B lower legs Decrease Subjective C/O Pain Yes: 0/10 B lower legs Patient to be Ind w/ HEP Yes Patient to be Ind w/ Don[place] Yes Compression Garments Patient to Adhere Lymphedema Precautions Yes Decrease Girth Measurments by (cm) Yes: B LE total by 20 cm ea Outpatient Therapy Plan of Care Treatment Plan May Include Therapeutic Exercise Including Home Yes Exercise Program Manual Therapy Techniques Yes Neuromuscular Re-education Yes Therapeutic Activities to Return to Yes Previous Functional/Work Level ADL/Self Care Education Yes Orthotics/Bracing/Splinting Yes Vasopneumatic Compression Pump Yes Manual Lymphatic Drainage Yes Eval/Re-Eval Yes Aquatic Therapy Yes Frequency Times per week 2 Duration Number of Weeks 8 Addendums This patient is a candidate for social No or vocational rehab? Patient/Guardian verbally acknowledges Yes understanding of treatment program and consents to further treatment? Patient/Guardian verbally acknowledges Yes understanding of diagnosis, prognosis and goals for treatment? Eval Complexity PT Charges 18481 - High Complexity PHYSICIAN CERTIFICATION: I certify the specified therapy services for Abe Maharaj JR are required, authorized, and reviewed every 30 days.
== END 2024-11-27 23:59 | disposition home or self-care (01) ==
LOC: PT 10:59
PROVIDERS: PCP Nurse Practitioner Family; Visit Provider Nurse Practitioner Family
DX: I89.0 Lymphedema, not elsewhere classified (principal)
CPT/HCPCS: 97163

== ENCOUNTER 2024-12-12 08:51 | Day surgery (SDC) | payer MEDICARE, SELFPAY ==
[2024-12-12 09:04] VITALS: BP 116/62; PULSE 79; RESP 16; TEMP 36.8; O2SAT 94; BMI 43.0
[2024-12-12 09:41] VITALS: BP 124/75; PULSE 75; RESP 18; O2SAT 96
[2024-12-12] MEDS: LIDOCAINE 1% 5ML PF VIAL 5 ML (09:41)
[2024-12-12] MEDS: DEXAMETHASONE 10MG/ML 1ML VIAL 10 MG (09:41)
[2024-12-12] MEDS: BUPIVACAINE 0.25% 10ML INJ 25 MG IJ (09:41)
[2024-12-12 09:42] VITALS: BP 124/75; PULSE 75; RESP 18; O2SAT 96
[2024-12-12 09:45] VITALS: BP 124/70; PULSE 67; RESP 16; O2SAT 98
--- NOTE | 2024-12-12 09:53 | P.PCN_ITS ---
Procedure Date: 12/12/24 Time: 09:10 Anesthesiologist:: Tk Engle CRNA Complications:: None Pre-procedure Diagnosis:: Degenerative disc lumbar spine multilevels. Lumbar radiculopathy. Lumbar spondylosis. Multilevel lumbar facet arthropathy. Post-procedure Diagnosis:: Same. Indications for Procedure:: Patient is a pleasant 64-year-old male who comes our clinic today for ROUND TWO of lumbar medial branch blocks/facet injections at the bilateral L4-5, L5-S1 level. Patient describes moderate to significant improvement terms of his overall low back symptoms as well as bilateral hip pain with previous injection same level. Today he describes low lumbar back pain as constant, dull, aching. He reports difficulty with lumbar flexion, extension, left and right rotation. Standing increases pain significantly. He rates his pain 7/10. Procedure Details:: Informed consent was obtained and the risk and benefits of the procedure was explained to the patient. Patient was taken to the procedure room where noninvasive monitors were placed, including noninvasive blood pressure cuff as well as pulse oximeter. The area over the lumbar spine was cleansed using chlorhexidine as a cleansing solution. I anesthetized the skin and subcutaneous tissues with 1% Lidocaine. I placed 22-gauge spinal needles into the facet joint/ medial branches of L4-L5, and L5-S1] bilaterally. Needle placement was confirmed with fluoroscopy. After confirmation of needle placement, each site was injected with 1 mL of 1% lidocaine and 0.25 % Marcaine and 10 mg of Depo- Medrol. A total of 80 mg of depo medrol was used for bilateral medial branch blocks of L4-L5, and L5-S1] bilaterally. Patient tolerated the procedure without difficulty. There were no complications. Plan and Disposition:: Patient was discharged without incident.
== END 2024-12-12 09:45 | disposition home or self-care (01) ==
PROVIDERS: PCP Nurse Practitioner Family; Visit Provider Nurse Anesthetist, Certified Registered
DX: M47.816 Spondylosis without myelopathy or radiculopathy, lumbar region (principal); M51.369 Other intervertebral disc degeneration, lumbar region without mention of lumbar back pain or lower extremity pain
CPT/HCPCS: 64493; 64494; J1100

== ENCOUNTER → 2024-12-15 15:29 | Outpatient (CLI) | payer MEDICARE, SELFPAY | LOC: SL 15:29 | PROVIDERS: PCP Nurse Practitioner Family; Visit Provider Internal Medicine Pulmonary Disease | DX: J43.8 Other emphysema (principal) | CPT/HCPCS: 94762 ==

== ENCOUNTER 2024-12-18 14:38 | Outpatient (CLI) | payer MEDICARE, SELFPAY ==
[2024-12-18 15:40] LABS: Hemoglobin A1C 5.1 % (4.0-6.0)
[2024-12-18 15:56] LABS: Albumin Level 4.1 g/dl (3.5-5.0); Chloride 105 mmol/L (98-107); Sodium 135 mmol/L (136-145)
[2024-12-18 15:58] LABS: Blood Urea Nitrogen 14 mg/dl (9-20)
[2024-12-18 15:59] LABS: Alanine Aminotransferase 33 U/L (12-78); Albumin/Globulin Ratio 1.8 (1.1-1.8); Alkaline Phosphatase 113 U/L (38-126); Aspartate Amino Transferase 34 U/L (17-59); Calcium 9.3 mg/dl (8.4-10.2); Carbon Dioxide 24 mmol/L (22.0-30.0); Chol/HDL Ratio 3.5 (1-3.5); Cholesterol 160 mg/dl (140-200); Estimated Glomerular Filt Rate 84 ml/min (>60); GFR (African American) 102 ML/MIN (>60); Globulin 2.3 g/dL (1.3-3.2); Glucose 110 mg/dl (74-100); HDL Cholesterol 46 mg/dl (40-60); Total Protein,Serum 6.4 g/dl (6.3-8.2); Triglycerides 221 mg/dl (30-150); VLDL Cholesterol 44 mg/dL (0-40)
[2024-12-18 16:10] LABS: Direct LDL Cholesterol 76.93 mg/dL (100-129)
[2024-12-18 16:15] LABS: Free T4 (Free Thyroxine) 0.85 ng/dl (0.78-2.19)
[2024-12-18 16:30] LABS: Thyroid Stimulating Hormone 1.28 uIU/mL (0.465-4.68)
== END 2024-12-18 23:59 | disposition home or self-care (01) ==
LOC: LAB 14:39
PROVIDERS: PCP Nurse Practitioner Family; Visit Provider Nurse Practitioner Acute Care
DX: F32.9 Major depressive disorder, single episode, unspecified (principal)
CPT/HCPCS: 80053; 80061; 83036; 84439; 84443

== ENCOUNTER 2024-12-21 07:02 | Day surgery (SDC) | payer MEDICARE, SELFPAY ==
[2024-12-19 10:25] VITALS: BMI 43.0
[2024-12-21] VITALS (9 sets, daily range): BP systolic 113–135; BP diastolic 62–81; PULSE 58–93; RESP 16–18; TEMP 36.1–36.9; O2SAT 96–98
[2024-12-21] MEDS: LACTATED RINGERS 1000ML 1,000 ML 50 ML IV (07:39)
--- NOTE | 2024-12-21 08:02 | P.PNANES_ITS ---
[facility] Disclaimer: The information contained in this section may have been updated after the patient was seen, as this information can be updated by other users. Medical History Lymphedema Incontinence Enlarged prostate Anxiety Coronary artery sclerosis History of COVID-19 Irritable bowel syndrome (IBS) Paraseptal emphysema Typical angina Snoring Daytime somnolence Fatigue Atypical pneumonia Pulmonary emphysema Smoking greater than 30 pack years History of rheumatoid arthritis Acute and chronic respiratory failure with hypoxia Viral pneumonia Grief SOBOE (shortness of breath on exertion) Acute on chronic heart failure with preserved ejection fraction (HFpEF) Deviated nasal septum Macular degeneration CHF (congestive heart failure) COPD exacerbation COPD (chronic obstructive pulmonary disease) Major depressive disorder Callus Abnormal nuclear cardiac imaging test Angina pectoris Hypertension Hyperlipidemia Abnormal result of cardiovascular function study Tachycardia Unstable angina Dizziness GERD (gastroesophageal reflux disease) Abnormal cardiovascular stress test Typical angina Tobacco dependence syndrome Abnormal EKG CAD (coronary artery disease) Edema Dyspnea Chest pain Surgical History H/O neck surgery History of hernia surgery H/O removal of cyst History of cardiac cath H/O heart artery stent History of coronary artery stent placement Family History Other Cancer Heart disease Hypertension Melanoma Social History Smoking Status: Current every day smoker tobacco type: cigarettes packs per day: 1 and pipe alcohol intake: current alcohol intake frequency: a few times a month substance use type: former substance user and marijuana counseling given: No (patient refused) counseling provided: none current occupational status: retired and disabled Travel in the last 8 weeks?: None household members: children housing: house marital status: snf: No caffeine: Yes physical activity: none Have you lived/traveled outside [place] in past 30 days?: No Contact w/someone who lives/traveled outside [place] past 30 days?: No Exposure to someone with infectious disease in past 14 days?: No Do you have a fever (greater than 100.4 F or 38 C)?: No Have you tested positive for COVID-19?: No Exposed to someone with COVID-19 in past 14 days?: No Do you have a sore throat?: No Do you have a cough?: No Do you have any weakness?: No Do you have any diarrhea?: No Are you experiencing any unusual bleeding?: No Do you have any muscle aches/pain?: No Do you have any abdominal pain?: No Are you experiencing loss of taste or smell?: No [facility] Anesthesia Checklist Patient Identification Patient Identification: Verbal (Name & ) Structural Data Admitted From: Home Planned Operative Procedure/s: egd,colon Consent for Planned Operative Procedure(s) Verified: Yes NPO Status Verified Time NPO: 00:00 Additional verifications Anesthesia Reactions: No Hx Blood Transfusions: Yes Blood Transfusion Reaction: No Airway Assessment Mallampati Score:: Class II C-Spine Mobility Assessed: Yes (limited rotation rt surgery) TMJ Mobility Assessed: Yes Dentition: Poor Dentition Neurological Assessment Level of Consciousness: Awake, Alert and Appropriate Anesthesia Plan Anesthesia Risk discussed: Yes Anesthesia Plan: Verified ASA Class: III Anesthesia Type: MAC
--- NOTE | 2024-12-21 08:22 | P.HP_ITS ---
History of Present Illness *Admission Date: 12/21/24 *Reason for visit:: Irregular bowel function, bloating, belching, nausea, vomiting and dysphagi *History of present illness: Mr. Maharaj is a 64-year-old gentleman who is here for diagnostic EGD and colonoscopy. The patient reports bloating, nausea and vomiting with belching and intermittent dysphagia for upper endoscopy and crampy irregular bowel function with diarrhea alternating with constipation for colonoscopy. He does have a lot of bloating. The examination is deemed medically necessary for EGD and colonoscopy. The patient has been seen, interviewed and examined prior to the procedure by both myself and the anesthesia provider. [facility] Disclaimer: The information contained in this section may have been updated after the patient was seen, as this information can be updated by other users. Medical History (Updated 12/21/24 @ 08:25 by Otoniel Barrow II, MD) Lymphedema Incontinence Enlarged prostate Anxiety Coronary artery sclerosis History of COVID-19 Irritable bowel syndrome (IBS) Paraseptal emphysema Typical angina Snoring Daytime somnolence Fatigue Atypical pneumonia Pulmonary emphysema Smoking greater than 30 pack years History of rheumatoid arthritis Acute and chronic respiratory failure with hypoxia Viral pneumonia Grief SOBOE (shortness of breath on exertion) Acute on chronic heart failure with preserved ejection fraction (HFpEF) Deviated nasal septum Macular degeneration CHF (congestive heart failure) COPD exacerbation COPD (chronic obstructive pulmonary disease) Major depressive disorder Callus Abnormal nuclear cardiac imaging test Angina pectoris Hypertension Hyperlipidemia Abnormal result of cardiovascular function study Tachycardia Unstable angina Dizziness GERD (gastroesophageal reflux disease) Abnormal cardiovascular stress test Typical angina Tobacco dependence syndrome Abnormal EKG CAD (coronary artery disease) Edema Dyspnea Chest pain Surgical History H/O neck surgery History of hernia surgery H/O removal of cyst History of cardiac cath H/O heart artery stent History of coronary artery stent placement Family History Other Cancer Heart disease Hypertension Melanoma Social History Smoking Status: Current every day smoker tobacco type: cigarettes packs per day: 1 and pipe alcohol intake: current alcohol intake frequency: a few times a month substance use type: former substance user and marijuana counseling given: No (patient refused) counseling provided: none current occupational status: retired and disabled Travel in the last 8 weeks?: None household members: children housing: house marital status: fdc: No caffeine: Yes physical activity: none Have you lived/traveled outside [place] in past 30 days?: No Contact w/someone who lives/traveled outside US past 30 days?: No Exposure to someone with infectious disease in past 14 days?: No Do you have a fever (greater than 100.4 F or 38 C)?: No Have you tested positive for COVID-19?: No Exposed to someone with COVID-19 in past 14 days?: No Do you have a sore throat?: No Do you have a cough?: No Do you have any weakness?: No Do you have any diarrhea?: No Are you experiencing any unusual bleeding?: No Do you have any muscle aches/pain?: No Do you have any abdominal pain?: No Are you experiencing loss of taste or smell?: No Other Medical History Have you received the Flu Vaccine for this season: No Have you received the Pneumonia Vaccine: Yes Review of Systems Review of Systems Review of systems (narrative): Negative *Cardiovascular Comments: Negative *Gastrointestinal Comments: Negative *Genitourinary Comments: Negative *Musculoskeletal Comments: Negative *Neurologic Comments: Negative Meds Home Medications and Allergies Home Medications ?Medication ?Instructions ?Recorded ?Confirmed ?Type albuterol sulfate 90 mcg/actuation 2 puff inhalation QIDP PRN 10/27/18 12/21/24 History aerosol inhaler Shortness Of Breath 25 days #9 grams tamsulosin 0.4 mg capsule 0.4 mg PO HS 90 days #90 caps 10/27/18 12/21/24 History folic acid 1 mg tablet 1 mg PO DAILY 10/26/22 12/21/24 History methotrexate sodium 2.5 mg tablet 20 mg PO WEEKLY 10/26/22 12/21/24 History atorvastatin 80 mg tablet 80 mg PO HS 03/12/24 12/21/24 History nitroglycerin 0.4 mg sublingual 0.4 mg sublingual Q5MINP PRN Chest 03/12/24 12/21/24 History tablet Pain pantoprazole 40 mg tablet,delayed 40 mg PO DAILY 03/12/24 12/21/24 History release potassium chloride 10 mEq 10 meq PO DAILY 03/12/24 12/21/24 History tablet,extended release cholecalciferol (vitamin D3) 125 5,000 unit PO DAILY 04/17/24 12/21/24 History mcg (5,000 unit) tablet (Vitamin D3) dutasteride 0.5 mg capsule 0.5 mg PO DAILY 04/17/24 12/21/24 History lamotrigine 150 mg tablet 150 mg PO BID 04/17/24 12/21/24 History vit C 250 mg-vit E 90 mg-zinc 40 1 cap PO BID 04/17/24 12/21/24 History mg-copper 1 [id number] capsule (PreserVision AREDS-2) aspirin 81 mg tablet,delayed 81 mg PO DAILY 07/13/24 12/21/24 History release furosemide 40 mg tablet 80 mg PO DAILY 07/13/24 12/21/24 History metoprolol succinate 100 mg 100 mg PO HS 07/13/24 12/21/24 History tablet,extended release 24 hr ipratropium 0.5 mg-albuterol 3 mg 3 ml inhalation Q6H PRN shortness 07/15/24 12/21/24 Rx (2.5 mg base)/3 mL nebulization of breath or wheezing 30 days #180 soln mL lumateperone 42 mg capsule 42 mg PO DAILY #30 caps 09/27/24 12/21/24 Rx (Caplyta) clopidogrel 75 mg tablet See Rx Instructions .Route 10/16/24 12/21/24 Rx .COMPLEX #90 tabs gabapentin 600 mg tablet 600 mg PO TID 10/23/24 12/21/24 History nicotine (polacrilex) 2 mg gum 2 mg buccal Q2H PRN nicotine 10/23/24 12/21/24 Rx cravings #100 ea oxybutynin chloride 5 mg 5 mg PO ONCE 11/16/24 12/21/24 History tablet,extended release 24 hr ranolazine 1,000 mg See Rx Instructions .Route 11/20/24 12/21/24 Rx tablet,extended release,12 hr .COMPLEX #180 tabs isosorbide mononitrate 60 mg 90 mg (1.5 x 60 mg) PO BID 30 days 11/29/24 12/21/24 Rx tablet,extended release 24 hr #90 tabs methocarbamol 750 mg tablet 750 mg PO TID #90 tabs 12/04/24 12/21/24 Rx peg 3350-electrolytes 236 240 ml PO Q10M colonscopy #4,000 mL 12/13/24 12/21/24 Rx gram-22.74 gram-6.74 gram-5.86 gram solution (Golytely) lamotrigine 25 mg tablet (Lamictal) 25 mg PO BID #60 tabs 12/15/24 12/21/24 Rx trazodone 100 mg tablet 100 - 150 mg (1 - 1.5 x 100 mg) PO 12/15/24 12/21/24 Rx DAILY #45 tabs amlodipine 10 mg tablet 10 mg PO DAILY 12/19/24 12/21/24 History spironolactone 50 mg tablet 50 mg PO DAILY #90 tabs 12/19/24 12/21/24 Rx New Prescriptions to Start Prescriptions: Allergies Allergy/AdvReac Type Severity Reaction Status Date / Time nickel (NICKEL) Allergy Unknown I-RASH Verified 12/21/24 07:23 quetiapine (From SEROQUEL) Allergy Unknown I-RASH Verified 12/21/24 07:23 mirtazapine AdvReac Intermediate Hallucinati Verified 12/21/24 07:49 ng NSAIDS (Non-Steroidal AdvReac Other Verified 12/21/24 07:23 Anti-Inflamma Exam Data for Last 24 hours Vital signs and Labs for Last 24 Hours: Temp Pulse Resp BP Pulse Ox O2 Del Method 98.4 F 93 H 18 123/71 97 Room Air 12/21/24 07:29 12/21/24 07:29 12/21/24 07:29 12/21/24 07:29 12/21/24 07:29 12/21/24 07:29 I & O for Last 24 hours: Intake & Output 12/18/24 12/19/24 12/20/24 12/21/24 23:59 23:59 23:59 23:59 Weight 300 lb *Routine HEENT Exam Head: Present normocephalic Eye: Present EOMI and PERRL ENT: Present mucous membranes moist *Routine Neck Exam Neck: Present supple *Routine Respiratory Exam Respiratory: Present CTA bilaterally *Routine Cardiovascular Exam Cardiovascular: Present RRR *Routine Abdominal Exam Abdominal: Present soft and normoactive bowel sounds; Absent tenderness *Routine Rectal Exam Rectal:: deferred *Routine Genitalia Exam Genitalia:: deferred *Routine Extremities Exam Extremities: Absent cyanosis, clubbing or edema *Routine Skin Exam Skin: Present warm; Absent rash *Routine Neurological Exam Neurological: Present alert and oriented X3 Assessment and Plan *Assessment and plan (1) Nausea and vomiting: Status: Acute Category: Medical Code(s): R11.2 - Nausea with vomiting, unspecified (2) Dysphagia: Status: Acute Category: Medical Code(s): R13.10 - Dysphagia, unspecified (3) Generalized abdominal pain: Status: Acute Category: Medical Code(s): R10.84 - Generalized abdominal pain (4) Bloating: Status: Acute Category: Medical Code(s): R14.0 - Abdominal distension (gaseous) (5) Regurgitation of food: Status: Acute Category: Medical Code(s): R11.10 - Vomiting, unspecified (6) Irregular bowel habits: Status: Acute Category: Medical Code(s): R19.8 - Other specified symptoms and signs involving the digestive system and abdomen Plan A/P: 1. Nausea/vomiting, dysphagia, bloating and heartburn for upper endoscopy, irregular bowel function for colonoscopy is the preprocedural diagnosis. The patient will be anesthetized/sedated using MAC sedation. The patient has been seen and examined. Cardiac and lung assessment prior to the examination is stable. Proceed with planned diagnostic EGD and colonoscopy.
--- NOTE | 2024-12-21 08:36 | P.PCN_ITS ---
[facility] Procedure Note Date: 12/21/24 Time: 08:48 Procedure Note:: Upper Endoscopy Procedure Report: Esophagogastroduodenoscopy with cold biopsies and TTS balloon dilation Endoscopost: Otoniel Barrow II, MD Referring Physician: SURAJ Alexis Date of Procedure: December 21, 2024 Equipment: Olympus GIF 190 standard upper endoscope Sedation: MAC sedation Indications: Mr. Maharaj is a 64-year-old gentleman who is here for diagnostic EGD and colonoscopy. The patient does report bloating, belching, nausea and intermittent vomiting. He has had some food regurgitation and generalized abdominal discomfort. He does state that he is intolerant of dairy. He does have a history of heartburn and reflux and is on pantoprazole. He rarely gets breakthrough symptoms as long as he takes this. He does have some dysphagia to solids and liquids intermittently. His last EGD was several years ago. Procedure: Prior to the procedure, a history and physical exam was performed, and patient's medications and allergies were reviewed. The risks, benefits and alternatives of the sedation and procedure were discussed with the patient. All questions were answered and informed consent was obtained. The patient was brought to the procedure room. Patient identification and proposed procedure were verified by the physician and the nurse. The patient was placed in a left lateral decubitus position and the scope was passed under direct vision. Throughout the procedure, the patient's blood pressure, pulse, and oxygen saturations were monitored continuously. The upper GI endoscopy was accomplished without difficulty. The patient tolerated the procedure well. Findings: The scope was passed directly into the upper esophagus and advanced to the fourth portion of duodenum and proximal jejunum. Cold biopsies were taken from the proximal jejunum for the disaccharidase assay. The proximal jejunum, post bulbar duodenum, ampulla and duodenal bulb were normal with normal mucosa and conniventes. The scope was withdrawn through a normal duodenal bulb and pylorus into the stomach. There was mild linear reactive gastropathy the antrum and mild chronic gastritis of the body and fundus. Cold biopsies were taken from the lesser curvature to rule out H. pylori. Upon retroflexion there was a small 2 cm hiatal hernia. The scope was then withdrawn into the esophagus. There was no evidence of reflux esophagitis or Contreras's. There was strong tertiary contractions and evidence of moderate esophageal dysmotility. The entire esophagus was dilated to 60 Vietnamese/20 mm with a TTS hydrostatic balloon. There was some mild resistance at the cricopharyngeus. The remainder of the esophageal mucosa was normal. Impression: 1. Cricopharyngeal spasm status post dilation to 20 mm 2. Nonerosive GERD with moderate esophageal dysmotility and small 2 cm hiatal hernia 3. Mild linear reactive gastropathy of antrum and mild chronic gastritis Plan: I will follow-up the biopsies. The patient does have functional dyspepsia and alternating IBS. We will discuss additional treatment options. I will proceed with diagnostic colonoscopy.
--- NOTE | 2024-12-21 08:48 | P.PCN_ITS ---
[facility] Procedure Note Date: 12/21/24 Time: 09:06 Procedure Note:: Colonoscopy Procedure Report: Colonoscopy with cold snare polypectomy Endoscopist: Otoniel Barrow II, MD Referring physician: SURAJ Alexis Date of Procedure: December 21, 2024 Equipment: Olympus 190 variable stiffness pediatric colonoscope Sedation: MAC sedation Indication: Mr. Maharaj is a 64-year-old gentleman who is here for diagnostic colonoscopy. The patient has struggled with irregular bowel function having franklin th diarrhea and constipation. He may skip a day or 2 without a bowel movement with straining and then have loose stools. He does have a lot of bloating, gassiness, belching and generalized abdominal discomfort. He reports no rectal bleeding, weight loss or family history of colon cancer. He does note mucus with his stools occasionally. He did have an anal fissure with marked bleeding 15 years ago and states that he had blood transfusions (4 units) transfused. He does have some hemorrhoidal prolapse. He does have a personal history of colon polyps and his last colonoscopy was 8 years ago and he had several polyps removed. Procedure: Prior to the procedure, a history and physical exam was performed, and patient's medications and allergies were reviewed. The risks, benefits and alternatives of the sedation and procedure were discussed with the patient. All questions were answered and informed consent was obtained. The patient was brought to the procedure room. Patient identification and proposed procedure were verified by the physician and the nurse. The patient was placed in a left lateral decubitus position and the scope was passed under direct vision. Throughout the procedure, the patient's blood pressure, pulse, and oxygen saturations were monitored continuously. The colonoscopy was accomplished without difficulty. The patient tolerated the procedure well. Findings: On digital rectal examination there was normal rectal tone. There were no external hemorrhoids. The prostate was 2+, moderately firm without nodules. The colonoscope was introduced through the anal canal to the rectum and advanced to the cecum. The ileocecal valve and appendiceal orifice were identified. The scope was advanced a short distance into the ileum which appeared grossly normal . The scope was then withdrawn into the colon. There were 3 polyps (cecum x 1 (3 to 4 mm), ascending x 1 (7 mm) and transverse x 1 (6 mm)). These were all removed via cold snare polypectomy. The cecum, ascending, transverse, descending, sigmoid and rectum were grossly normal. There were no mucosal abnormalities identified. Upon retroflexion within the rectum there were grade 2-3 internal hemorrhoids. The preparation was good throughout with [place] Preparation Score of 8 out of 9. The cecal time was 14 minutes. Impression: 1. Colonic polyps x 3 2. Grade 2-3 internal hemorrhoids Plan: I will follow-up the polyp histology and recommend repeat surveillance colonoscopy again in 5 years if the polyps are adenomatous. I will have the patient initiate a fiber bowel regimen (combined MiraLAX plus Metamucil). We will discuss dietary measures to follow.
[2024-12-27 17:21] LABS: Disclaimer Notes (.); Interpretation Notes (.); Lactase 42.92 (>/= 14.0); Maltase 349.47 (>/= 110.0); Palatinase 25.37 (>/= 8.5); Reference Notes (.); Sucrase 100.33 (>/= 25.0)
== END 2024-12-21 10:10 | disposition home or self-care (01) ==
PROVIDERS: PCP Nurse Practitioner Family; Visit Provider Internal Medicine Gastroenterology
PROC: 0DJ08ZZ Inspection of Upper Intestinal Tract, Via Natural or Artificial Opening Endoscopic (ICD-10-PCS; CPT 45378; principal; 2024-12-21 08:30)
DX: R11.2 Nausea with vomiting, unspecified (principal); R13.10 Dysphagia, unspecified; R10.84 Generalized abdominal pain; R14.0 Abdominal distension (gaseous); R11.10 Vomiting, unspecified; R19.8 Other specified symptoms and signs involving the digestive system and abdomen; K31.9 Disease of stomach and duodenum, unspecified; K29.70 Gastritis, unspecified, without bleeding; K21.9 Gastro-esophageal reflux disease without esophagitis; K44.9 Diaphragmatic hernia without obstruction or gangrene; K22.4 Dyskinesia of esophagus; J39.2 Other diseases of pharynx; D12.2 Benign neoplasm of ascending colon; D12.0 Benign neoplasm of cecum; D12.3 Benign neoplasm of transverse colon; K64.8 Other hemorrhoids; Z72.0 Tobacco use
CPT/HCPCS: 43239; 43249; 45385; 82657; C1726; J7120

== ENCOUNTER 2024-12-22 13:13 | Outpatient (CLI) | payer MEDICARE, SELFPAY ==
--- NOTE | 2024-12-22 13:17 | XR_ITS ---
FINAL REPORT CLINICAL HISTORY: .fell wednesday onto knees COMPARISON: 06/20/2024 FINDINGS: RIGHT HIP Two views of the right hip with an AP view of the pelvis demonstrate no acute fracture or dislocation. Mild degenerative changes. The visualized bony structures are well aligned. No soft tissue abnormality is seen. IMPRESSION: No acute bony abnormality. Reviewed, Interpreted and Dictated by Gladis Carbajal MD Transcribed by Imani Voss Authenticated and [facility]
--- NOTE | 2024-12-22 13:17 | XR_ITS ---
FINAL REPORT CLINICAL HISTORY: ACUTE TRAUMATIC PAIN fell wednesday onto knees COMPARISON: 06/03/2023 FINDINGS: LEFT KNEE 3 views of the left knee were obtained. There is no acute fracture or dislocation. There are mild degenerative changes. Visualized joint spaces are normally aligned. Soft tissues are unremarkable. IMPRESSION: No acute bony abnormality. Reviewed, Interpreted and Dictated by Gladis Carbajal MD Transcribed by Imani Voss Authenticated and . [facility]
--- NOTE | 2024-12-22 13:17 | XR_ITS ---
FINAL REPORT CLINICAL HISTORY: .fell wednesday onto knees COMPARISON: 06/03/2023 FINDINGS: Three views of the right knee were obtained. There is no acute fracture or dislocation. Mild degenerative changes. There is no acute soft tissue abnormality. IMPRESSION: No acute abnormality identified. Reviewed, Interpreted and Dictated by Gladis Carbajal MD Transcribed by Imani Voss Authenticated and [facility]
== END 2024-12-22 23:59 | disposition home or self-care (01) ==
LOC: RAD 13:14
PROVIDERS: PCP Nurse Practitioner Family; Visit Provider Nurse Practitioner Family
DX: G89.11 Acute pain due to trauma (principal); M25.561 Pain in right knee; M25.562 Pain in left knee; M25.551 Pain in right hip
CPT/HCPCS: 73502; 73562

== ENCOUNTER 2024-12-22 15:00 | Outpatient (RCR) | payer MEDICARE, SELFPAY | END 2024-12-22 23:59 | disposition home or self-care (01) | LOC: PT 15:00 | PROVIDERS: PCP Nurse Practitioner Family; Visit Provider Nurse Practitioner Family | DX: I89.0 Lymphedema, not elsewhere classified (principal) | CPT/HCPCS: 97140; 97760 ==

== ENCOUNTER 2025-01-02 12:02 | Outpatient (POV) | payer MEDICARE, SELFPAY ==
[2025-01-02 12:12] VITALS: BP 120/65; PULSE 83; RESP 18; O2SAT 96; BMI 43.0
--- NOTE | 2025-01-02 12:24 | EXP.PAIN.SOA ---
[facility] Disclaimer: The information contained in this section may have been updated after the patient was seen, as this information can be updated by other users. Medical History Lymphedema Incontinence Enlarged prostate Anxiety Coronary artery sclerosis History of COVID-19 Irritable bowel syndrome (IBS) Paraseptal emphysema Typical angina Snoring Daytime somnolence Fatigue Atypical pneumonia Pulmonary emphysema Smoking greater than 30 pack years History of rheumatoid arthritis Acute and chronic respiratory failure with hypoxia Viral pneumonia Grief SOBOE (shortness of breath on exertion) Acute on chronic heart failure with preserved ejection fraction (HFpEF) Deviated nasal septum Macular degeneration CHF (congestive heart failure) COPD exacerbation COPD (chronic obstructive pulmonary disease) Major depressive disorder Callus Abnormal nuclear cardiac imaging test Angina pectoris Hypertension Hyperlipidemia Abnormal result of cardiovascular function study Tachycardia Unstable angina Dizziness GERD (gastroesophageal reflux disease) Abnormal cardiovascular stress test Typical angina Tobacco dependence syndrome Abnormal EKG CAD (coronary artery disease) Edema Dyspnea Chest pain Surgical History H/O neck surgery History of hernia surgery H/O removal of cyst History of cardiac cath H/O heart artery stent History of coronary artery stent placement Family History Other Cancer Heart disease Hypertension Melanoma Social History (Updated 01/02/25 @ 12:15 by Penny Johnson RN) Smoking Status: Current every day smoker tobacco type: cigarettes packs per day: 1 and pipe alcohol intake: current alcohol intake frequency: a few times a month substance use type: former substance user and marijuana counseling given: No (patient refused) counseling provided: none current occupational status: other Travel in the last 8 weeks?: None household members: children housing: house marital status: [place] [facility]: No caffeine: Yes physical activity: none Have you lived/traveled outside US in past 30 days?: No Contact w/someone who lives/traveled outside US past 30 days?: No Exposure to someone with infectious disease in past 14 days?: No Do you have a fever (greater than 100.4 F or 38 C)?: No Have you tested positive for COVID-19?: No Exposed to someone with COVID-19 in past 14 days?: No Do you have a sore throat?: No Do you have a cough?: No Do you have any weakness?: No Do you have any diarrhea?: No Are you experiencing any unusual bleeding?: No Do you have any muscle aches/pain?: No Do you have any abdominal pain?: No Are you experiencing loss of taste or smell?: No PM Subjective & Objective Subjective Subjective:: Patient is a pleasant 64-year-old male who presents today for follow-up of his first diagnostic lumbar medial branch block. Patient rates his pain today an 8 out of 10. He does state that he had a fall about 1 week ago where he ended up tripping over the dog. He denies any significant injury from this. He states initially he walked up his right hip but they did did imaging and it just showed arthritis. He does state that following that injection while he was nice and numb that it did provide significant relief to at least 80%. He states he was very manageable at that time and felt like he could do more. He does feel like however it was very shortly lived and is now back to his baseline even today. Patient states that the pain is constant and there in his back. He states it is worse with bending, lifting and twisting. He does state the pain interferes with his ability perform activities of daily living such as cooking and cleaning. Patient is interested in any help we may be able to provide. His Tk has been reviewed and is appropriate. Review of Systems: General: No recent weight changes, no fever, no sleep disturbances Respiratory: No cough, no shortness of air, no recurring pulmonary infections Cardiovascular/peripheral vascular: No chest pain, no palpitations, no edema, no shortness of breath Gastrointestinal: No new onset incontinence, normal bowel movements reported Genitourinary: No new onset incontinence Musculoskeletal: Low back pain Psychiatric: [Normal mood/affect] Neurological: [Denies weakness in extremities], [denies balance issues] Pain at rest (0-10 scale): 8 Objective Objective:: Physical Exam: General: Alert and oriented x3, no acute distress, pleasant and cooperative Lungs: Respirations even and unlabored, symmetrical chest expansion Eyes: PERRL Musculoskeletal: Flexion and extension of lumbar [spine] somewhat guarded secondary to pain, [antalgic gait noted] positive Kemps test Neurological: Speech clear, no gross sensory deficit Has patient had previous pain injection?: Yes Percent improvement in pain since last injection: 80% with numbing medication Conservative treatment options previously tried: Home exercise plan Length of treatment: Longer than 12 weeks Meds Home Medications and Allergies Home Medications ?Medication ?Instructions ?Recorded ?Confirmed ?Type albuterol sulfate 90 mcg/actuation 2 puff inhalation QIDP PRN 10/27/18 01/02/25 History aerosol inhaler Shortness Of Breath 25 days #9 grams tamsulosin 0.4 mg capsule 0.4 mg PO HS 90 days #90 caps 10/27/18 01/02/25 History folic acid 1 mg tablet 1 mg PO DAILY 10/26/22 01/02/25 History methotrexate sodium 2.5 mg tablet 20 mg PO WEEKLY 10/26/22 01/02/25 History atorvastatin 80 mg tablet 80 mg PO HS 03/12/24 01/02/25 History nitroglycerin 0.4 mg sublingual 0.4 mg sublingual Q5MINP PRN Chest 03/12/24 01/02/25 History tablet Pain pantoprazole 40 mg tablet,delayed 40 mg PO DAILY 03/12/24 01/02/25 History release potassium chloride 10 mEq 10 meq PO DAILY 03/12/24 01/02/25 History tablet,extended release cholecalciferol (vitamin D3) 125 5,000 unit PO DAILY 04/17/24 01/02/25 History mcg (5,000 unit) tablet (Vitamin D3) dutasteride 0.5 mg capsule 0.5 mg PO DAILY 04/17/24 01/02/25 History lamotrigine 150 mg tablet 150 mg PO BID 04/17/24 01/02/25 History vit C 250 mg-vit E 90 mg-zinc 40 1 cap PO BID 04/17/24 01/02/25 History mg-copper 1 ke-eexikg-yubaar capsule (PreserVision AREDS-2) aspirin 81 mg tablet,delayed 81 mg PO DAILY 07/13/24 01/02/25 History release furosemide 40 mg tablet 80 mg PO DAILY 07/13/24 01/02/25 History metoprolol succinate 100 mg 100 mg PO HS 07/13/24 01/02/25 History tablet,extended release 24 hr ipratropium 0.5 mg-albuterol 3 mg 3 ml inhalation Q6H PRN shortness 07/15/24 01/02/25 Rx (2.5 mg base)/3 mL nebulization of breath or wheezing 30 days #180 soln mL lumateperone 42 mg capsule 42 mg PO DAILY #30 caps 09/27/24 01/02/25 Rx (Caplyta) clopidogrel 75 mg tablet See Rx Instructions .Route 10/16/24 01/02/25 Rx .COMPLEX #90 tabs gabapentin 600 mg tablet 600 mg PO TID 10/23/24 01/02/25 History nicotine (polacrilex) 2 mg gum 2 mg buccal Q2H PRN nicotine 10/23/24 01/02/25 Rx cravings #100 ea oxybutynin chloride 5 mg 5 mg PO ONCE 11/16/24 01/02/25 History tablet,extended release 24 hr ranolazine 1,000 mg See Rx Instructions .Route 11/20/24 01/02/25 Rx tablet,extended release,12 hr .COMPLEX #180 tabs isosorbide mononitrate 60 mg 90 mg (1.5 x 60 mg) PO BID 30 days 11/29/24 01/02/25 Rx tablet,extended release 24 hr #90 tabs methocarbamol 750 mg tablet 750 mg PO TID #90 tabs 12/04/24 01/02/25 Rx peg 3350-electrolytes 236 240 ml PO Q10M colonscopy #4,000 mL 12/13/24 01/02/25 Rx gram-22.74 gram-6.74 gram-5.86 gram solution (Golytely) lamotrigine 25 mg tablet (Lamictal) 25 mg PO BID #60 tabs 12/15/24 01/02/25 Rx trazodone 100 mg tablet 100 - 150 mg (1 - 1.5 x 100 mg) PO 12/15/24 01/02/25 Rx DAILY #45 tabs amlodipine 10 mg tablet 10 mg PO DAILY 12/19/24 01/02/25 History spironolactone 50 mg tablet 50 mg PO DAILY #90 tabs 12/19/24 01/02/25 Rx linaclotide 290 mcg capsule 290 mcg PO DAILY #30 caps 12/21/24 01/02/25 Rx (Linzess) wsxzze-vjlhuudd-bwqgnaj 1 cap PO .With meals #100 caps 12/21/24 01/02/25 Rx 36,000-114,000-180,000 unit capsule,delay rel (Creon) New Prescriptions to Start Prescriptions: Allergies Allergy/AdvReac Type Severity Reaction Status Date / Time nickel (NICKEL) Allergy Unknown I-RASH Verified 12/21/24 07:23 quetiapine (From SEROQUEL) Allergy Unknown I-RASH Verified 12/21/24 07:23 mirtazapine AdvReac Intermediate Hallucinati Verified 12/21/24 07:49 ng NSAIDS (Non-Steroidal AdvReac Other Verified 12/21/24 07:23 Anti-Inflamma Assessment and Plan *Assessment and plan (1) Lumbar facet arthropathy: Status: Acute Category: Medical Code(s): M47.816 - Spondylosis without myelopathy or radiculopathy, lumbar region (2) Degenerative disc disease: Status: Acute Category: Medical Plan Patient did have a successful first lumbar medial branch block and I did review with him regarding repeat lumbar block. Risk and benefits were discussed with patient and he would like to proceed forward with this plan of care. Patient did have limited range of motion of his lumbar spine during today's visit with a positive Kemps test. Patient was counseled if he does get significant improvement with this second lumbar block we will proceed forward with the lumbar RFA at a later date. Patient acknowledges understanding agrees with plan of care. Patient has continued at home stretching and exercise for longer than 12 weeks with no additional changes. Patient has had chronic low back pain for longer than a year patient has failed oral medications, heat and ice, topicals. We will schedule him for the second lumbar medial branch block bilaterally L4-L5 and L5-S1 under fluoroscopy. Patient has been instructed to contact the clinic with any concerns before the next appointment. Dr. Alanis has reviewed this note and agrees with this plan of care. This note was dictated using voice recognition software and make contain errors or omissions. All injections are used with Lidocaine, Bupivacaine and dexamethasone unless diagnostic in which no steroids are used. Occasionally urine drug screen is needed to verify patient's compliance with our office pain contract. This is ordered based off specific treatments related to chronic pain with the potential to abuse certain medications.
== END 2025-01-02 23:59 | disposition home or self-care (01) ==
LOC: SC.PAIN 12:03
PROVIDERS: PCP Nurse Practitioner Family; Visit Provider Nurse Practitioner Family
DX: M47.816 Spondylosis without myelopathy or radiculopathy, lumbar region (principal)
CPT/HCPCS: 99212; G0463

== ENCOUNTER 2025-01-23 11:13 | Day surgery (SDC) | payer MEDICARE, SELFPAY ==
--- OUTSIDE RECORDS SUMMARY | 2025-01-23 11:18 | XMS_ITS | Encounter Summary ---
Author Organization Healthcare Address [address] [place] [address] Care Team Providers Care Waist Pleater Name Role Phone Savage Reardon MD Primary Care Provider [phone] Clayton James MD Unavailable [phone] Reason for Visit * Reason Comments Med Refill Encounter Details Date Type Department Care Team (Late st Contact Info) Description 12/12/2024 Refill [place] [facility] [address] [place] [address] Clayton James MD [address] [place] [address] Degeneration of intervertebral disc of lumbar region with discogenic back pain and lower extremity pain; Chronic bilateral low back pain with right-sided sciatica Social History Tobacco Use Types Packs/Day Years Used Date Smoking Tobacco: Every Day Smokeless Tobacco: Never Alcohol Use Standard Drinks/Week Comments Yes 0 (1 standard drink = 0.6 oz pure alcohol) Alcoholic Drinks/day: Occasional alcohol use Sex and Gender Information Value Date Recorded Sex Assigned at Male 09/22/2024 10:45 AM EST Legal Sex Male 8:23 PM EDT Gender Identity Not on file Sexual Orientation Not on file documented as of this encounter Miscellaneous Notes * Telephone Encounter - Reggie Berger RN - 12/12/2024 9:02 AM EDT Called pt and informed him of below. Pt verbalized understanding. * Telephone Encounter - Gris Sylvester PA - 12/12/2024 8:12 AM EDT Tk request #: [id number] reviewed and appropriate. Refill sent to the attending for authorization. Please let patient know he will need to follow up with PCP for subsequent refills as he was released from our care on 09/22/2024. Thank you! documented in this encounter Plan of Treatment Not on file documented as of this encounter Visit Diagnoses Diagnosis Degeneration of intervertebral disc of lumbar region with discogenic back pain and lower extremity pain Chronic bilateral low back pain with right-sided sciatica documented in this encounter Additional Health Concerns Assessment Noted Time A fall risk assessment has been complete d for the patient 09/22/2024 11:11 AM EST A Body Mass Index follow-up plan has been documented for the patient 09/22/2024 12:40 PM EST documented as of this encounter Care Teams Waist Pleater Relationship Specialty Start Date End Date Savage Reardon MD [address] [place] [address] PCP - General 12/13/20 Clayton James MD [address] [place] [address] Surgeon Neurosurgery 09/22/24 documented as of this encounter
--- OUTSIDE RECORDS SUMMARY | 2025-01-23 11:18 | XMS_ITS | Encounter Summary ---
Author Organization [facility] Address [address] [place] [address] Care Team Providers Care Ccie Name Role Phone Savage Reardon MD Primary Care Provider Clayton James MD Unavailable [phone] Encounter Details Date Type Department Care Team (Late st Contact Info) Description 12/12/2024 Refill [place] [facility] [address] [place] [address] Gris Sylvester PA [address] [place] [address] Degeneration of intervertebral disc of lumbar region with discogenic back pain and lower extremity pain (Primary Dx); Chronic bilateral low back pain with right-sided [...] encounter Miscellaneous Notes * Telephone Encounter - Gris Sylvester PA - 12/12/2024 8:10 AM EDT Tk request #: [id number] reviewed and appropriate. Refill sent to the attending for authorization. Patient will need to follow up with PCP for subsequent refills as he was released from our care on 09/22/2024. documented in this encounter Plan of Treatment Not on file documented as of this encounter Visit Diagnoses Diagnosis Degeneration of intervertebral disc of lumbar region with discogenic back pain and lower extremity pain- Primary Chronic bilateral low back pain with right-sided sciatica documented in this encounter Additional Health Concerns Assessment Noted Time A fall risk assessment has been complete d for the patient 09/22/2024 11:11 AM EST A Body Mass Index follow-up plan has been documented for the patient 09/22/2024 12:40 PM EST documented as of this encounter Care Teams Ccie Relationship Specialty Start Date End Date Savage Reardon MD [address] [place] [address] PCP - General 12/13/20 Clayton James MD [address] [place] [address] Surgeon Neurosurgery 09/22/24 documented as of this encounter
--- OUTSIDE RECORDS SUMMARY | 2025-01-23 11:18 | XMS_ITS | Encounter Summary ---
Author Organization Healthcare Address [address] [place] [address] Care Team Providers Care Inspector Assemblies And Installations Name Role Phone Savage Reardon MD Primary Care Provider Clayton James MD Unavailable [phone] Encounter Details Date Type Department Care Team (Late st Contact Info) Description 05/04/2024 Orders Only External Location [address] [place] [address] Savage Reardon MD [address] [place] [address] Social History Tobacco Use Types Packs/Day Years Used Date Smoking Tobacco: Every Day Alcohol Use Standard Drinks/Week Comments Yes 0 (1 standard drink = 0.6 oz pure alcohol) Alcoholic Drinks/day: Occasional alcohol use Sex and Gender Information Value Date Recorded Sex Assigned at Male 09/22/2024 10:45 AM EST Legal Sex Male 8:23 PM EDT Gender Identity Not on file Sexual Orientation Not on file documented as of this encounter Plan of Treatment Not on file documented as of this encounter Procedures Procedure Name Priority Date/Time Associated Diagnosis Comments CT OUTSIDE IMAGES 05/04/2024 10:57 AM EDT documented in this encounter Results * CT OUTSIDE IMAGES (05/04/2024 10:57 AM EDT) Anatomical Region Laterality Modality Computed Tomogra phy 05/04/2024 10:5 7 AM EDT us Savage Reardon MD IMG CT PROCEDURES Final Resu lt documented in this encounter Visit Diagnoses Not on filedocumented in this encounter Care Teams Inspector Assemblies And Installations Relationship Specialty Start Date End Date Savage Reardon MD [address] [place] [address] PCP - General 12/13/20 Clayton James MD [address] [place] [address] Surgeon Neurosurgery 09/22/24 documented as of this encounter
--- OUTSIDE RECORDS SUMMARY | 2025-01-23 11:18 | XMS_ITS | Encounter Summary ---
Author Organization Healthcare Address [address] [place] [address] Care Team Providers Care Universal Grinder Set Up Operator Name Role Phone Savage Reardon MD Primary Care Provider [phone] Clayton James MD Unavailable [phone] Reason for Visit * Reason Comments Med Refill Encounter Details Date Type Department Care Team (Late st Contact Info) Description 11/19/2024 Refill [place] [facility] [address] [place] [address] Clayton James MD [address] [place] [address] Degeneration of intervertebral disc of [...] documented as of this encounter Care Teams Universal Grinder Set Up Operator Relationship Specialty Start Date End Date Savage Reardon MD [address] [place] [address] PCP - General 12/13/20 Clayton James MD [address] [place] [address] Surgeon Neurosurgery 09/22/24 documented as of this encounter
--- OUTSIDE RECORDS SUMMARY | 2025-01-23 11:18 | XMS_ITS | Clinical Summary ---
Author Organization [facility] Address [address] [place] [address] Care Team Providers Care Tire Rebuilder Name Role Phone [place] Reardon MD Primary Care Provider [phone] [place] James MD Unavailable [phone] Allergies Active Allergy Reactions Criticality Noted Date Comments Aripiprazole Unknown - Patient st ates they do not know rxn details Low 07/23/2014 Ibuprofen Other - please docum ent in the comment field,Unknown - Patient states they do not know rxn details Low 12/01/2010 psychosis Nickel Rash Low 04/20/2024 Nsaids Palpitations Low 04/20/2024 Quetiapine Rash,Unknown - Patie nt states they do not know rxn details Low 07/23/2014 Medications albuterol 108 (90 Base) MCG/ACT inhaler Inhale 2 puffs every 4 (four) hours as needed. Active aspirin 81 MG EC tablet 07/24/20 14 Active atorvastatin (Lipitor) 80 MG tablet Take 1 tablet (80 mg) by mouth nightly. Active betamethasone dipropionate 0.05 % EX cream apply TO RASH ON LEFT elbow AREA TWICE DAILY FOR 3 WEEKS THEN take 1 WEEK break. REPEAT NEEDED. DO not USE ON face, groin, OR underarms 05/03/20 24 Active Symbicort 160-4.5 MCG/ACT inhaler Inhale 2 puffs as needed. 03/09/20 24 Active doxycycline (Vibramycin) 100 MG capsule TAKE ONE CAPSULE BY MOUTH TWICE DAILY FOR 7 DAYS -- FINISH ALL MEDICINE -- --TAKE WITH FOOD-- 09/20/19 25 Active furosemide (Lasix) 40 MG tablet Take 1 tablet (40 mg) by mouth twice a day. 02/26/20 18 Active amLODIPine (Norvasc) 10 MG tablet Take 1 tablet (10 mg) by mouth daily. 08/21/19 25 Active ARIPiprazole (Abilify) 20 MG tablet Take 1 tablet (20 mg) by mouth daily. 04/06/20 24 Active cholecalciferol (D3-5) 5,000 Units tablet Take 125 mcg by mouth 1 (one) time each day. 04/17/20 24 Active clonazePAM (KlonoPIN) 1 MG tablet TAKE ONE TABLET BY MOUTH TWICE DAILY NEEDED FOR ANXIETY FOR 3 DAYS 07/15/20 24 Active clopidogrel (Plavix) 75 MG tablet Take 1 tablet (75 mg) by mouth 1 (one) time each day. 04/17/20 24 Active Diclofenac Sodium 1.5 % solution APPLY TO AFFECTED NAILS BEFORE USING SOLUTION/OINTME NT TREATMENT (30 DAY SUPPLY) 04/26/20 24 Active dutasteride (Avodart) 0.5 MG capsule Take 1 capsule (0.5 mg) by mouth 1 (one) time each day. 01/19/20 17 Active ferrous sulfate 325 (65 Fe) MG tablet Take 1 tablet (325 mg) by mouth 2 (two) times a day with meals. 01/22/20 17 Active Trelegy Ellipta 100-62.5-25 MCG/ACT aerosol powder Inhale 1 puff. 08/28/19 25 Active folic acid (Folvite) 1 MG tablet Take 2 tablets (2,000 mcg) by mouth 1 (one) time each day. 09/13/19 25 Active gabapentin (Neurontin) 300 MG capsule Take 1 capsule (300 mg) by mouth 3 times a day. 01/22/20 17 Active hydrocortisone 2.5 % cream Apply 1 Application topically twice a day. Active ipratropium-albute rol (Duo-Neb) 0.5-2.5 mg/3 mL nebulizer solution INHALE THE CONTENTS OF 1 VIAL VIA NEBULIZER BY MOUTH EVERY 6 HOURS NEEDED FOR SHORTNESS OF BREATH OR wheezing 07/15/20 24 Active isosorbide mononitrate ER (Imdur) 60 MG 24 hr tablet Take 1 tablet (60 mg) by mouth 1 (one) time each day. 03/12/20 24 Active ketorolac (Acular) 0.5 % ophthalmic solution STARTNG 3 DAYS BEFORE SURGERY, INSTILL 1 DROP INTO THE OPERATIVE EYE FOUR TIMES DAILY FOR 10 DAYS THEN DECREASE TO TWICE DAILY FOR 14 DAYS 07/06/20 24 Active lamoTRIgine (LaMICtal) 150 MG tablet Take 1 tablet (150 mg) by mouth 2 (two) times a day. 08/01/20 24 Active methocarbamol (Robaxin) 500 MG tablet take one tablet by mouth every 8 hours as needed for muscle spasms 05/23/20 24 Active methotrexate 2.5 MG tablet Take 8 tablets (20 mg total) by mouth every 7 (seven) days. 09/13/19 25 Active metoprolol succinate XL (Toprol-XL) 100 MG 24 hr tablet Take 1 tablet (100 mg) by mouth daily. 03/13/20 24 Active Multiple Vitamins-Minerals (One-A-Day Mens 50+) tablet Take 1 tablet by mouth 1 (one) time each day. Active ofloxacin (Ocuflox) 0.3 % ophthalmic solution INSTILL ONE DROP INTO THE OPERATIVE EYE FOUR TIMES DAILY FOR 7 DAYS 07/06/20 24 Active ondansetron (Zofran) 4 MG tablet Take 1 tablet (4 mg) by mouth twice a day. Active pantoprazole (Protonix) 40 MG EC tablet Take 1 tablet (40 mg) by mouth 1 (one) time each day. Active potassium chloride CR (Klor-Con) 10 MEQ ER tablet Take 1 tablet (10 mEq) by mouth 1 (one) time each day. 03/12/20 24 Active prednisoLONE acetate (Pred-Forte) 1 % ophthalmic suspension INSTILL 1 DROP INTO THE OPERATIVE EYE FOUR TIMES DAILY FOR 7 DAYS THEN DECREASE TO 1 DROP TWICE DAILY FOR 14 DAYS 07/06/20 24 Active ranolazine (Ranexa) 1000 MG 12 hr tablet Take by mouth twice a day. 04/17/20 24 Active spironolactone (Aldactone) 50 MG tablet Take 0.5 tablets (25 mg) by mouth 1 (one) time each day. Active tamsulosin (Flomax) 0.4 MG 24 hr capsule Take 1 capsule (0.4 mg) by mouth 1 (one) time each day. 03/22/20 14 Active tiotropium (Spiriva HandiHaler) 18 MCG inhalation capsule INHALE CONTENTS OF 1 CAPSULE ONCE DAILY. 05/13/20 18 Active traZODone (Desyrel) 50 MG tablet TAKE ONE TABLET BY MOUTH EVERY EVENING FOR insomnia 08/01/20 24 Active triamcinolone (Kenalog) 0.1 % cream Apply 1 Application topically. 03/20/20 24 Active Vortioxetine HBr (Trintellix) 5 MG tablet Take 1 tablet (5 mg) by mouth daily. 01/22/20 17 Active gabapentin (Neurontin) 600 MG tabletIndications: Degeneration of intervertebral disc of lumbar region with discogenic back pain and lower extremity pain,Chronic bilateral low back pain with right-sided sciatica Take 1 tablet (600 mg) by mouth 3 (three) times a day. 90 tablet 1 09/22/19 25 Active gabapentin (Neurontin) 600 MG tabletIndications: Degeneration of intervertebral disc of lumbar region with discogenic back pain and lower extremity pain,Chronic bilateral low back pain with right-sided sciatica Take 1 tablet by mouth 3 times a day. 90 tablet 1 12/13/19 25 025 Active Active Problems No known active problems Encounters Date Type Department Care Team Description 12/12/2024 Refill [facility] [address] [place] [address] Gris Sylvester PA Degeneration of intervertebral disc of lumbar region with discogenic back pain and lower extremity pain (Primary Dx); Chronic bilateral low back pain with right-sided sciatica 12/12/2024 Refill [facility] [address] [place] [address] [place] James MD Degeneration of intervertebral disc of lumbar region with discogenic back pain and lower extremity pain; Chronic bilateral low back pain with right-sided sciatica 11/19/2024 Refill [facility] [address], [address] [place] [address] [place] James MD Degeneration of intervertebral disc of lumbar region with discogenic back pain and lower extremity pain; Chronic bilateral low back pain with right-sided sciatica from Last 3 Months Family History Medical History Relation Name Comments Conversions - Other Father Back pro blem Heart attack Father Hypertension Father Other cancer Father Stroke Father Heart attack Mother Hypertension Mother Stroke Mother Conversions - Other Other 1 Back pro blem Stroke Other 2 Hypertension Other 3 Other cancer Other 4 Heart attack Other 5 Relation Name Status Comments Father Mother Other 1 Other 2 Other 3 Other 4 Other 5 Social History Tobacco Use Types Packs/Day Years Used Date Smoking Tobacco: Every Day Smokeless Tobacco: Never Tobacco Cessation:Ready to Q uit: Not Asked; Counseling Given: Not Answered Alcohol Use Standard Drinks/Week Comments Yes 0 (1 standard drink = 0.6 oz pure alcohol) Alcoholic Drinks/day: Occasional alcohol use Sex and Gender Information Value Date Recorded Sex Assigned at Male 09/22/2024 10:45 AM EST Legal Sex Male 8:23 PM EDT Gender Identity Not on file Sexual Orientation Not on file Last Filed Vital Signs Vital Sign Reading Time Taken Comments Blood Pressure 148/68 09/22/2024 11:06 AM EST Pulse 89 08/12/2018 3:16 PM EST Temperature - - Respiratory Rate - - Oxygen Saturation - - Inhaled Oxygen Concentration - - Weight 138 kg (304 lb 10.8 oz) 09/22/2024 11:06 AM EST Height 177.8 cm (5' 10 ) 09/22/2024 11:06 AM EST Body Mass Index 43.72 09/22/2024 11:06 AM EST Plan of Treatment Health Maintenance Due Date Last Done Comments [facility]-Depression Screening 1958 [facility]-Infant/Child/Adol SDOH Screenings 1960 [facility]- SDOH Screenings 1976 [facility]-Adult SDOH Screenings 1976 [facility]-DTaP,Tdap,and Td Vaccine s (1 - Tdap) 1977 CT Colonography 2003 Colonoscopy 2003 FIT-DNA 2003 FIT 2003 FOBT 2003 Sigmoidoscopy 2003 [facility]-Colorectal Cancer Screening 2003 [facility]-Pneumococcal Vaccine: 50 + Years (1 of 1 - PCV) 2008 [facility]-Zoster Vaccines (1 of 2) 2008 [facility]-OSCDR-45 Vaccine (1 - 20 24-25 season) 2024 [facility]-Influenza Vaccine (Seaso n Ended) 2025 [facility]-RSV Vaccine: 60+ Years o r (1 - 1-dose 75+ series) 2033 HPV Vaccines Aged Out No longer eligi ble based on patient's age to complete this topic [facility]-HIB Vaccines Aged Out No longer e ligible based on patient's age to complete this topic [facility]-Hepatitis A Vaccines Aged Out No longer eligible based on patient's age to complete this topic [facility]-IPV Vaccines Aged Out No longer e ligible based on patient's age to complete this topic [facility]-Rotavirus Vaccines Aged Out No lo nger eligible based on patient's age to complete this topic Insurance [employer] MEDICARE Care Teams Tire Rebuilder Relationship Specialty Start Date End Date [place] Reardon MD [address] [place] [address] PCP - General 12/13/20 [place] James MD [address] [place] [id number] Surgeon Neurosurgery 09/22/24
[2025-01-23 11:25] VITALS: BP 110/61; PULSE 77; RESP 18; O2SAT 97; BMI 41.5
[2025-01-23] MEDS: BUPIVACAINE 0.25% 10ML INJ 25 MG IJ (11:25)
[2025-01-23] MEDS: LIDOCAINE 1% 5ML PF VIAL 5 ML (11:25)
[2025-01-23 11:31] VITALS: BP 133/73; PULSE 72; RESP 18; O2SAT 93
--- NOTE | 2025-01-23 11:37 | P.PCN_ITS ---
Procedure Date: 01/23/25 Time: 11:20 Anesthesiologist:: Tk Engle CRNA Complications:: None Pre-procedure Diagnosis:: Degenerative disc lumbar spine multilevels. Lumbar radiculopathy. Lumbar spondylosis. Multilevel lumbar facet arthropathy. Post-procedure Diagnosis:: Same. Indications for Procedure:: Patient is a pleasant 64-year-old male who comes our clinic today for bilateral lumbar medial ranch block/facet injections at that L4-5, L5-S1 level. This will be local anesthetic only for diagnostic purposes. Patient describes low lumbar back pain as constant, dull, aching. He reports difficulty with lumbar flexion, extension, left and right rotation. He rates his pain 7/10. Procedure Details:: Informed consent was obtained and the risk and benefits of the procedure was explained to the patient. Patient was taken to the procedure room where noninvasive monitors were placed, including noninvasive blood pressure cuff as well as pulse oximeter. The area over the lumbar spine was cleansed using chlorhexidine as a cleansing solution. I anesthetized the skin and subcutaneous tissues with 1% Lidocaine. I placed 22-gauge spinal needles into the facet joint/ medial branches of [L3-L4, L4-L5, and L5-S1] bilaterally. Needle p lacement was confirmed with fluoroscopy. After confirmation of needle placement, each site was injected with 1 mL of 1% lidocaine and 0.25 % Marcaine.Patient tolerated the procedure without difficulty. There were no complications. Plan and Disposition:: Patient was discharged without incident.
[2025-01-23 12:10] VITALS: BP 110/61; PULSE 77; RESP 18; O2SAT 97
[2025-01-23 12:13] VITALS: BP 110/61; PULSE 77; RESP 18; O2SAT 97
== END 2025-01-23 11:31 | disposition home or self-care (01) ==
LOC: SC.PAIN 11:21 → SC.PAINP 11:24 → SC.PAIN 01-24 09:40 → SC.PAINP 01-24 09:40
PROVIDERS: PCP Nurse Practitioner Family; Visit Provider Nurse Anesthetist, Certified Registered
DX: M47.816 Spondylosis without myelopathy or radiculopathy, lumbar region (principal)
CPT/HCPCS: 64493; 64494; J0665; J2003

== ENCOUNTER 2025-02-14 08:35 | Outpatient (POV) | payer MEDICARE, SELFPAY ==
--- OUTSIDE RECORDS SUMMARY | 2025-02-14 08:38 | XMS_ITS | Clinical Summary ---
Author Organization [facility] Address [address] [place] [address] Care Team Providers Care Convenience Recycle Center Tech Name Role Phone [place] Reardon MD Primary Care Provider [phone] [place] James MD Unavailable [phone] Allergies Active Allergy Reactions Criticality Noted [...] a day. 90 tablet 1 12/13/19 25 Active gabapentin (Neurontin) 600 MG tabletIndications: Degeneration of intervertebral disc of lumbar region with discogenic back pain and lower extremity pain,Chronic bilateral low back pain with right-sided sciatica Take 1 tablet by mouth 3 times a day. 90 tablet 02/10/20 25 025 Active Active Problems No known active problems Encounters Date Type Department Care Team Description 02/09/2025 Refill [place] [id number] [facility], [address] [place] [phone] Gris Sylvester PA Degeneration of intervertebral disc of lumbar region with discogenic back pain and lower extremity pain (Primary Dx); Chronic bilateral low back pain with right-sided sciatica 02/09/2025 Refill [facility] [address] [place] [address] Daniel Grajeda MD Degeneration of intervertebral disc of lumbar region with discogenic back pain and lower extremity pain; Chronic bilateral low back pain with right-sided sciatica 12/12/2024 Refill [facility] [address], [address] [place] [phone] Gris Sylvester PA Degeneration of intervertebral disc of lumbar region with discogenic back pain and lower extremity pain (Primary Dx); Chronic bilateral low back pain with right-sided sciatica 12/12/2024 Refill [place] [address] [place] [address] [place] James MD Degeneration of intervertebral disc of lumbar region with discogenic back pain and lower extremity pain; Chronic bilateral low back pain with right-sided sciatica 11/19/[address] [facility] [address] [place] [address] [place] James MD Degeneration of intervertebral disc [...] 2008 [facility]-Zoster Vaccines (1 of 2) 2008 STI-RJNIV-26 Vaccine (1 - 20 24- season) 2024 [facility]-Influenza Vaccine (#1) 2025 [facility]-RSV Vaccine: 60+ Years o r [...] patient's age to complete this topic Insurance [facility] Care Teams Convenience Recycle Center Tech Relationship Specialty Start Date End Date [place] Reardon MD [address] [place] [address] PCP - General 12/13/20 [place] James MD [address] [place] [address] Surgeon Neurosurgery 09/22/24
--- OUTSIDE RECORDS SUMMARY | 2025-02-14 08:38 | XMS_ITS | Encounter Summary ---
Author Organization Healthcare Address [address] [place] [address] Care Team Providers Care Pari Mutuel Ticket Seller Name Role Phone [place] Reardon MD Primary Care Provider [phone] [place] James MD Unavailable [phone] Reason for Visit * Reason Comments Med Refill Encounter Details Date Type Department Care Team (Late st Contact Info) Description 11/19/2024 Refill [place] [facility] [address] [place] [address] [place] James MD [address] [place] [address] Degeneration of intervertebral disc of [...] documented as of this encounter Care Teams Pari Mutuel Ticket Seller Relationship Specialty Start Date End Date [place] Reardon MD [address] [place] [address] PCP - General 12/13/20 [place] James MD [address] [place] [address] Surgeon Neurosurgery 09/22/24 documented as of this encounter
--- OUTSIDE RECORDS SUMMARY | 2025-02-14 08:38 | XMS_ITS | Encounter Summary ---
Author Organization [facility] Address [address] [place] [address] Care Team Providers Care Finish Molder Name Role Phone [place] Reardon MD Primary Care Provider [place] James MD Unavailable [phone] Encounter Details Date Type Department Care Team (Late st Contact Info) Description 05/04/2024 Orders Only External Location [address] [place] [address] [place] Reardon MD [address] [place] [address] Social History Tobacco Use Types [...] on filedocumented in this encounter Care Teams Finish Molder Relationship Specialty Start Date End Date [place] Reardon MD [address] [place] [address] PCP - General 12/13/20 [place] James MD [address] [place] [address] Surgeon Neurosurgery 09/22/24 documented as of this encounter
--- OUTSIDE RECORDS SUMMARY | 2025-02-14 08:38 | XMS_ITS | Encounter Summary ---
Author Organization Healthcare Address [address] [place] [address] Care Team Providers Care Pier Master Assistant Name Role Phone [place] Reardon MD Primary Care Provider [place] James MD Unavailable [phone] Encounter Details Date Type Department Care Team (Late st Contact Info) Description 02/09/2025 Refill [place] [facility] [address] [place] [address] Gris Sylvester PA [address] [place] [address] Degeneration of intervertebral disc of [...] documented as of this encounter Care Teams Pier Master Assistant Relationship Specialty Start Date End Date [place] Reardon MD [address] [place] [address] PCP - General 12/13/20 [place] James MD [address] [place] [address] Surgeon Neurosurgery 09/22/24 documented as of this encounter
--- OUTSIDE RECORDS SUMMARY | 2025-02-14 08:38 | XMS_ITS | Encounter Summary ---
Author Organization Healthcare Address [address] [place] [address] Care Team Providers Care Deputy Sheriff K9 Handler Name Role Phone [place] Reardon MD Primary Care Provider [phone] [place] James MD Unavailable [phone] Reason for Visit * Reason Comments Med Refill Encounter Details Date Type Department Care Team (Late st Contact Info) Description 12/12/2024 Refill [place] [facility] [address] [place] [address] [place] James MD [address] [place] [address] Degeneration of intervertebral disc of [...] 12/12/2024 8:12 AM EDT Tk request #: [id number] reviewed and appropriate. Refill sent to the [...] documented as of this encounter Care Teams Deputy Sheriff K9 Handler Relationship Specialty Start Date End Date [place] Reardon MD [address] [place] [address] PCP - General 12/13/20 [place] James MD [address] [place] [address] Surgeon Neurosurgery 09/22/24 documented as of this encounter
--- OUTSIDE RECORDS SUMMARY | 2025-02-14 08:38 | XMS_ITS | Encounter Summary ---
Author Organization [facility] Address [address] [place] [address] Care Team Providers Care Emergency Management Specialist Name Role Phone [place] Reardon MD Primary Care Provider [phone] [place] James MD Unavailable [phone] Reason for Visit * Reason Comments Med Refill Encounter Details Date Type Department Care Team (Late st Contact Info) Description 02/09/2025 Refill [place] [facility] [address] [place] [address] Daniel Grajeda MD [address] [place] [address] Degeneration of intervertebral disc of [...] documented as of this encounter Care Teams Emergency Management Specialist Relationship Specialty Start Date End Date [place] Reardon MD [address] [place] [address] PCP - General 12/13/20 [place] James MD [address] [place] [address] Surgeon Neurosurgery 09/22/24 documented as of this encounter
[2025-02-14 09:20] VITALS: BP 104/55; PULSE 59; RESP 14; O2SAT 95; BMI 40.8
--- NOTE | 2025-02-14 09:20 | EXP.PAIN.SOA ---
[facility] Disclaimer: The information contained in this section may have been updated after the patient was seen, as this information can be updated by other users. Medical History Lymphedema Incontinence BLADDER Enlarged prostate Anxiety Coronary artery sclerosis History of COVID-19 Irritable bowel syndrome (IBS) Paraseptal emphysema Typical angina Snoring Daytime somnolence Fatigue Atypical pneumonia Pulmonary emphysema Smoking greater than 30 pack years History of rheumatoid arthritis Acute and chronic respiratory failure with hypoxia Viral pneumonia Grief SOBOE (shortness of breath on exertion) Acute on chronic heart failure with preserved ejection fraction (HFpEF) Deviated nasal septum Macular degeneration CHF (congestive heart failure) COPD exacerbation COPD (chronic obstructive pulmonary disease) Major depressive disorder Callus Abnormal nuclear cardiac imaging test Angina pectoris Hypertension Hyperlipidemia Abnormal result of cardiovascular function study Tachycardia Unstable angina Dizziness GERD (gastroesophageal reflux disease) Abnormal cardiovascular stress test Typical angina Tobacco dependence syndrome Abnormal EKG CAD (coronary artery disease) Edema Dyspnea Chest pain Surgical History H/O neck surgery 2 PLATES, 4 SCREWS History of hernia surgery Two reported operations H/O removal of cyst History of cardiac cath Reported total of 10 stents placed H/O heart artery stent Reported total of 10 stents placed History of coronary artery stent placement Family History Other Cancer Heart disease Hypertension Melanoma Social History Smoking Status: Current every day smoker tobacco type: cigarettes packs per day: 1 and pipe alcohol intake: current alcohol intake frequency: a few times a month substance use type: former substance user and marijuana counseling given: No (patient refused) counseling provided: none current occupational status: other Travel in the last 8 weeks?: None household members: children housing: house marital status: snf: No caffeine: Yes physical activity: none PM Subjective & Objective Subjective Subjective:: Patient is a pleasant 64-year-old male who presents today for follow-up of his second lumbar medial branch block on 01/23/2025. Patient denies any new falls or injuries. He does state that this was great while it was nice and numb. He is rating at least 70 to 80% improvement however states that as soon as it wore off he was back to his baseline. Patient does state he would like to proceed forward with the ablation. He does state the ongoing pain symptoms are interfering with his ability perform activities of daily living such as cooking and cleaning. Patient denies any radiating symptoms to his legs. Patient states the pain is still all across his back and is worse with certain movements such as bending, twisting or lifting. Patient states that his in the past has had the ablation and it actually worked for 5 years. Patient states he is really hoping this will do his well for him. Patient has continued conservative therapy with no additional changes. His Tk has been reviewed and is appropriate. Review of Systems: General: No recent weight changes, no fever, no sleep disturbances Respiratory: No cough, no shortness of air, no recurring pulmonary infections Cardiovascular/peripheral vascular: No chest pain, no palpitations, no edema, no shortness of breath Gastrointestinal: No new onset incontinence, normal bowel movements reported Genitourinary: No new onset incontinence Musculoskeletal: Low back pain Psychiatric: [Normal mood/affect] Neurological: [Denies weakness in extremities], [denies balance issues] Pain at rest (0-10 scale): 5 Objective Objective:: Physical Exam: General: Alert and oriented x3, no acute distress, pleasant and cooperative Lungs: Respirations even and unlabored, symmetrical chest expansion Eyes: PERRL Musculoskeletal: Flexion and extension of lumbar [spine] somewhat guarded secondary to pain, [antalgic gait noted] positive Kemps test Neurological: Speech clear, no gross sensory deficit Has patient had previous pain injection?: Yes Percent improvement in pain since last injection: 70-80% Conservative treatment options previously tried: Home exercise plan Length of treatment: Longer than 12 weeks Meds Home Medications and Allergies Home Medications ?Medication ?Instructions ?Recorded ?Confirmed ?Type albuterol sulfate 90 mcg/actuation 2 puff inhalation QIDP PRN 10/27/18 01/31/25 History aerosol inhaler Shortness Of Breath 25 days #9 grams tamsulosin 0.4 mg capsule 0.4 mg PO HS 90 days #90 caps 10/27/18 01/31/25 History folic acid 1 mg tablet 1 mg PO DAILY 10/26/22 01/31/25 History methotrexate sodium 2.5 mg tablet 20 mg PO WEEKLY 10/26/22 01/31/25 History atorvastatin 80 mg tablet 80 mg PO HS 03/12/24 01/31/25 History nitroglycerin 0.4 mg sublingual 0.4 mg sublingual Q5MINP PRN Chest 03/12/24 01/31/25 History tablet Pain potassium chloride 10 mEq 10 meq PO DAILY 03/12/24 01/31/25 History tablet,extended release cholecalciferol (vitamin D3) 125 5,000 unit PO DAILY 04/17/24 01/31/25 History mcg (5,000 unit) tablet (Vitamin D3) dutasteride 0.5 mg capsule 0.5 mg PO DAILY 04/17/24 01/31/25 History lamotrigine 150 mg tablet 150 mg PO BID 04/17/24 01/31/25 History vit C 250 mg-vit E 90 mg-zinc 40 1 cap PO BID 04/17/24 01/31/25 History mg-copper 1 [id number] capsule (PreserVision AREDS-2) aspirin 81 mg tablet,delayed 81 mg PO DAILY 07/13/24 01/31/25 History release furosemide 40 mg tablet 80 mg PO DAILY 07/13/24 01/31/25 History ipratropium 0.5 mg-albuterol 3 mg 3 ml inhalation Q6H PRN shortness 07/15/24 01/31/25 Rx (2.5 mg base)/3 mL nebulization of breath or wheezing 30 days #180 soln mL clopidogrel 75 mg tablet See Rx Instructions .Route 10/16/24 01/31/25 Rx .COMPLEX #90 tabs gabapentin 600 mg tablet 600 mg PO TID 10/23/24 01/31/25 History ranolazine 1,000 mg See Rx Instructions .Route 11/20/24 01/31/25 Rx tablet,extended release,12 hr .COMPLEX #180 tabs isosorbide mononitrate 60 mg 90 mg (1.5 x 60 mg) PO BID 30 days 11/29/24 01/31/25 Rx tablet,extended release 24 hr #90 tabs lamotrigine 25 mg tablet (Lamictal) 25 mg PO BID #60 tabs 12/15/24 01/31/25 Rx trazodone 100 mg tablet 100 - 150 mg (1 - 1.5 x 100 mg) PO 12/15/24 01/31/25 Rx DAILY #45 tabs amlodipine 10 mg tablet 10 mg PO DAILY 12/19/24 01/31/25 History spironolactone 50 mg tablet 50 mg PO DAILY #90 tabs 12/19/24 01/31/25 Rx pantoprazole 40 mg tablet,delayed See Rx Instructions .Route 01/08/25 01/31/25 Rx release .COMPLEX #90 tabs methocarbamol 750 mg tablet 750 mg PO TID #90 tabs 01/17/25 01/31/25 Rx ziprasidone HCl 40 mg capsule 40 mg PO BID #60 caps 01/29/25 01/31/25 Rx (Geodon) metoprolol succinate 100 mg 100 mg PO BID 30 days #60 tabs 01/31/25 01/31/25 Rx tablet,extended release 24 hr New Prescriptions to Start Prescriptions: Allergies Allergy/AdvReac Type Severity Reaction Status Date / Time nickel (NICKEL) Allergy Unknown I-RASH Verified 01/31/25 15:09 quetiapine (From SEROQUEL) Allergy Unknown I-RASH Verified 01/31/25 15:09 mirtazapine AdvReac Intermediate Hallucinati Verified 01/31/25 15:09 ng NSAIDS (Non-Steroidal AdvReac Other Verified 01/31/25 15:09 Anti-Inflamma Assessment and Plan *Assessment and plan (1) Lumbar facet arthropathy: Status: Acute Category: Medical Code(s): M47.816 - Spondylosis without myelopathy or radiculopathy, lumbar region (2) Chronic back pain: Status: Acute Category: Medical Code(s): M54.9 - Dorsalgia, unspecified; G89.29 - Other chronic pain Plan Patient did have a successful first and second lumbar medial branch block that both provided approximately 80% relief and lasted for at least 3 hours. Patient had very minimal pain during that time with a 1 or a 2 out of 10 pain. Patient states that once it wore off he immediately went back to an 8 or 9 out of 10. Patient states during that time it was working that his movements were much easier with overall decreased pain. Patient is back to having worsening pain in his low back today. I did discuss the lumbar RFA with the patient. Risk and benefits were discussed with patient and he would like to proceed forward with this plan of care. Patient did have limited range of motion of his lumbar spine during today's visit with a positive Kemps test. Patient has continued at home stretching and exercise for longer than 12 weeks with no additional changes. Patient has had chronic back pain for longer than 6 months. Patient denies any radiating symptoms into his legs. Patient has failed oral medications, heat and ice, topicals. We will schedule him for the lumbar radiofrequency ablation bilaterally L4-L5 and L5-S1 under fluoroscopy. This will be done at 80 ?C with non pulsed thermal burn. Patient has been instructed to contact the clinic with any concerns before the next appointment. Dr. Alanis has reviewed this note and agrees with this plan of care. This note was dictated using voice recognition software and make contain errors or omissions. All injections are used with Lidocaine, Bupivacaine and dexamethasone unless diagnostic in which no steroids are used. Occasionally urine drug screen is needed to verify patient's compliance with our office pain contract. This is ordered based off specific treatments related to chronic pain with the potential to abuse certain medications.
== END 2025-02-14 23:59 | disposition home or self-care (01) ==
LOC: SC.PAIN 08:36
PROVIDERS: PCP Nurse Practitioner Family; Visit Provider Nurse Practitioner Family
DX: M47.816 Spondylosis without myelopathy or radiculopathy, lumbar region (principal); G89.29 Other chronic pain
CPT/HCPCS: 99212; G0463

== ENCOUNTER 2025-03-21 13:13 | Outpatient (POV) | payer MEDICARE, SELFPAY ==
--- OUTSIDE RECORDS SUMMARY | 2025-03-21 13:20 | XMS_ITS | Encounter Summary ---
Author Organization Healthcare Address [address] [place] [address] Care Team Providers Care Flight Surveyor Name Role Phone Savage Reardon MD Primary Care Provider [phone] Clayton James MD Unavailable [phone] Reason for Visit * Reason Comments Med Refill Encounter Details Date Type Department Care Team (Late st Contact Info) Description 03/21/2025 Refill [place] [facility] [address] [place] [address] Clayton James MD [address] [place] [address] Degeneration of intervertebral disc of [...] documented as of this encounter Care Teams Flight Surveyor Relationship Specialty Start Date End Date Savage Reardon MD [address] [place] [address] PCP - General 12/13/20 Clayton James MD [address] [place] [address] Surgeon Neurosurgery 09/22/24 documented as of this encounter
--- OUTSIDE RECORDS SUMMARY | 2025-03-21 13:20 | XMS_ITS | Clinical Summary ---
Author Organization [facility] Address [address] [place] [address] Care Team Providers Care Marketing Project Specialist Name Role Phone Jennifer Newton APRN Primary Care Provid er Allergies Active Allergy Reactions Criticality Noted Date Comments Aripiprazole Unknown (See Comments) Low 07/23/2014 Ibuprofen Other (See Comments) ,Unknown (See Comments) Low 12/01/2010 psychosis Nickel Rash Low 04/20/2024 Nsaids Palpitations Low 04/20/2024 Quetiapine Rash Low 04/05/2024 Medications pantoprazole (PROTONIX) 40 MG EC tablet Take 1 tablet by mouth Daily. Active nitroglycerin (NITROSTAT) 0.[address] 1 tablet under the tongue Every 5 (Five) Minutes As Needed for Chest Pain. Take no more than 3 doses in 15 minutes. Active multivitamin with minerals (One-A-Day Mens 50+) tablet tablet Take 1 tablet by mouth Daily. One-A-Day Men's 50 Plus 400 mcg-20 mcg-370 mcg tablet Vazalore 81 mg capsule take 1 capsule by oral route every day Active albuterol sulfate HFA 108 (90 Base) MCG/ACT inhaler Inhale 2 puffs Every 4 (Four) Hours As Needed for Wheezing. Active atorvastatin (LIPITOR) 40 MG tablet Take 1 tablet by mouth Daily. Active dutasteride (AVODART) 0.5 MG capsule Take 1 capsule by mouth Daily. Active lamoTRIgine (LaMICtal) 100 MG tablet Take 1 tablet by mouth 2 (Two) Times a Day. Active furosemide (LASIX) 40 MG tablet Take 1 tablet by mouth 2 (Two) Times a Day. Active metoprolol succinate XL (TOPROL-XL) 50 MG 24 hr tablet Take 0.5 tablets by mouth Daily. Active tamsulosin (FLOMAX) 0.4 MG capsule 24 hr capsule Take 1 capsule by mouth Daily. 1/2 FOLLOWING THE SAME MEAL EACH DAY Active spironolactone (ALDACTONE) 50 MG tablet Take 0.5 tablets by mouth Daily. Active gabapentin (NEURONTIN) 300 MG capsule Take 1 capsule by mouth 3 (Three) Times a Day. Active ondansetron (ZOFRAN) 4 MG tablet Take 1 tablet by mouth 2 (Two) Times a Day. place 1 tablet by translingual route 2 times every day on top of the tongue where they will dissolve, then swallow Active Cholecalcifero l 125 MCG (5000 UT) tablet Take 1 tablet by mouth Daily. 04/17/20 24 Active amLODIPine (NORVASC) 5 MG tablet Take 1 tablet by mouth Daily. 03/21/20 24 Active clopidogrel (PLAVIX) 75 MG tablet Take 1 tablet by mouth Daily. 04/17/20 24 Active isosorbide mononitrate (IMDUR) 60 MG 24 hr tablet Take 1 tablet by mouth Daily. 03/12/20 24 Active potassium chloride 10 MEQ CR tablet Take 1 tablet by mouth Daily. 03/12/20 24 Active ranolazine (RANEXA) 1000 MG 12 hr tablet Take by mouth Every 12 (Twelve) Hours. 04/17/20 24 Active methotrexate 2.5 MG tabletIndicati ons:High risk medication use Take 8 tablets by mouth 1 (One) Time Per Week. 40 tablet 5 09/13/19 25 Active Adalimumab (Humira, 2 Pen,) 40 MG/0.4ML Auto-injector Kit Inject 1 Pen under the skin into the appropriate area as directed Every 14 (Fourteen) Days. 2 each 5 10/17/19 25 Active Lumateperone Tosylate (Caplyta) 42 MG capsule Take 1 capsule by mouth Daily. 10/13/19 25 Active methocarbamol (ROBAXIN) 750 MG tablet Take 1 tablet by mouth 3 times a day. 12/05/19 25 Active nicotine polacrilex (NICORETTE) 2 MG gum Chew 1 each As Needed. 10/24/19 25 Active potassium chloride (KLOR-CON M10) 10 MEQ CR tablet Take 1 tablet by mouth Daily. 12/27/19 25 Active traZODone (DESYREL) 100 MG tablet Take 1 tablet by mouth every night at bedtime. 11/09/19 25 Active folic acid (FOLVITE) 1 MG tablet TAKE TWO TABLETS BY MOUTH EVERY DAY EXCEPT THE DAY you take mETHOTREXATE 30 tablet 5 03/12/20 25 Active folic acid (FOLVITE) 1 MG tablet Take 2 tablets by mouth Daily. EXCEPT THE DAY YOU TAKE MTX 30 tablet 5 09/13/19 25 025 Discontinued Active Problems Problem Noted Date Diagnosed Date High risk medication use 04/19/2024 Assessment & Plan (01/12/2025 2:41 PM EDT): * MTX 20 mg PO once/week for RA * Started 07/15/22 1. CBC and CMP every 8-12 weeks to monitor for medication toxicity. 2. Take folate supplements daily. 3. No recent serious infections. 4. Refill today Assessment & Plan (09/13/2024 4:44 PM EST): * MTX 20 mg PO once/week for RA * Started 07/15/22 1. CBC and CMP every 8-12 weeks to monitor for medication toxicity. 2. Take folate supplements daily. 3. No recent serious infections. 4. Refill today Orders: CBC Auto Differential; Future Comprehensive Metabolic Panel; Future C-reactive Protein; Future Sedimentation Rate; Future methotrexate 2.5 MG tablet; Take 8 tablets by mouth 1 (One) Time Per Week. XR Knee 3 View Bilateral; Future QuantiFERON-TB Gold Plus; Future Hepatitis Panel, Acute; Future Assessment & Plan (04/19/2024 12:47 PM EDT): * MTX 20 mg PO once/week for RA * Started 07/15/22 1. CBC and CMP every 8-12 weeks to monitor for medication toxicity. 2. Take folate supplements daily. 3. No recent serious infections Osteoarthritis 04/12/2024 Assessment & Plan (01/12/2025 2:41 PM EDT): 1. Weight loss would be beneficial 2. Tylenol PRN is ok as directed 3. He has done some physical therapy 4. He has seen a spine surgeon 5. He had cervical spine surgery 6. He has tried taking NSAIDS like ibuprofen 7. Due to history of cardiovascular disease he now tries to limit/avoid oral NSAIDS 8. He has taken gabapentin for neuropathic pain 9. He has had injections in his back and neck before Assessment & Plan (09/13/2024 4:44 PM EST): 1. Weight loss would be beneficial 2. Tylenol PRN is ok as directed 3. He has done some physical therapy 4. He has seen a spine surgeon 5. He had cervical spine surgery 6. He has tried taking NSAIDS like ibuprofen 7. Due to history of cardiovascular disease he now tries to limit/avoid oral NSAIDS 8. He has taken gabapentin for neuropathic pain 9. He has had injections in his back and neck before Orders: CBC Auto Differential; Future Comprehensive Metabolic Panel; Future C-reactive Protein; Future Sedimentation Rate; Future XR Knee 3 View Bilateral; Future QuantiFERON-TB Gold Plus; Future Hepatitis Panel, Acute; Future Assessment & Plan (04/19/2024 12:48 PM EDT): * Medications/treatments/interventions tried include: Tylenol, he saw a spine surgeon, physical therapy, cervical spine surgery, aspirin, gabapentin, ibuprofen, naproxen, MTX/folic acid 1. Weight loss would be beneficial 2. Tylenol PRN is ok as directed 3. He has done some physical therapy 4. He has seen a spine surgeon 5. He had cervical spine surgery 6. He has tried taking NSAIDS like ibuprofen 7. Due to history of cardiovascular disease he now tries to limit/avoid oral NSAIDS 8. He has taken gabapentin for neuropathic pain 9. He has had injections in his back and neck before Seropositive rheumatoid arthritis 04/12/2024 Assessment & Plan (01/12/2025 3:29 PM EDT): * Sibling with RA * 07/07/22: CCP normal, CRP 2.55 (<0.50), ESR 56 (<21), IgA RF normal, IgG RF 23.5 (<20.0), IgM RF 41.7 (<20.0), Uric acid 7.7, Glucose 106 , CMP ok otherwise, CBC was fine * 04/03/22: RAMONA negative, Thyroid peroxidase antibody normal, C3 and C4 normal, DS DNA normal, Ribosomal P normal, SECURITY DEVELOPER normal, SCL 70 normal, Morrow normal, SSA and SSB Normal * Medications/treatments/interventions tried include: Tylenol, he saw a spine surgeon, physical therapy, cervical spine surgery, aspirin, gabapentin, ibuprofen, naproxen, MTX/folic acid 1. Labs today-new order provided 2. Continue MTX 20 mg/week and folic acid. Refill today 3. Follow up in 3-4 months 4. He has been unable to start Humira, he has been trying to get approved through patient assistance program. I have reached out to our pharmacists today. They were in need of his portion of the paperwork, he has emailed this during our office visit today 5. Today he reports increased knee pain/problems. 6. Will x-ray the knees today. 7. His prognosis seems guarded. 8. He has chronic pain 9. Continue to work on getting Humira approved for patient- Assessment & Plan (09/13/2024 4:44 PM EST): * Sibling with RA * 07/07/22: CCP normal, CRP 2.55 (<0.50), ESR 56 (<21), IgA RF normal, IgG RF 23.5 (<20.0), IgM RF 41.7 (<20.0), Uric acid 7.7, Glucose 106 , CMP ok otherwise, CBC was fine * 04/03/22: RAMONA negative, Thyroid peroxidase antibody normal, C3 and C4 normal, DS DNA normal, Ribosomal P normal, SECURITY DEVELOPER normal, SCL 70 normal, Morrow normal, SSA and SSB Normal * Medications/treatments/interventions tried include: Tylenol, he saw a spine surgeon, physical therapy, cervical spine surgery, aspirin, gabapentin, ibuprofen, naproxen, MTX/folic acid 1. New lab order provided 2. Continue MTX 20 mg/week and folic acid. Refill today 3. Follow up in 3-4 months 4. We gave him a handout on RA to take home and review 5. Today he reports increased knee pain/problems. 6. Will x-ray the knees today. 7. His prognosis seems guarded. 8. He has chronic pain 9. At this point we will try adding a TNF Inhibitor. Risks and benefits reviewed. Orders: CBC Auto Differential; Future Comprehensive Metabolic Panel; Future C-reactive Protein; Future Sedimentation Rate; Future XR Knee 3 View Bilateral; Future QuantiFERON-TB Gold Plus; Future Hepatitis Panel, Acute; Future Assessment & Plan (04/20/2024 2:21 PM EDT): * Sibling with RA * 07/07/22: CCP normal, CRP 2.55 (<0.50), ESR 56 (<21), IgA RF normal, IgG RF 23.5 (<20.0), IgM RF 41.7 (<20.0), Uric acid 7.7, Glucose 106 , CMP ok otherwise, CBC was fine * 04/03/22: RAMONA negative, Thyroid peroxidase antibody normal, C3 and C4 normal, DS DNA normal, Ribosomal P normal, SECURITY DEVELOPER normal, SCL 70 normal, Morrow normal, SSA and SSB Normal * Medications/treatments/interventions tried include: Tylenol, he saw a spine surgeon, physical therapy, cervical spine surgery, aspirin, gabapentin, ibuprofen, naproxen, MTX/folic acid 1. Labs today and every 8-12 weeks. New lab order provided 2. Continue MTX 20 mg/week and folic acid. Refill today 3. Follow up in 3-4 months 4. 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 Triamcinolone helps. 5. He does have toe deformities and will see podiatry. Encounters Date Type Department Care Team Description 03/10/2025 Refill [facility] [address] [place] [phone] Damien Cosme DO 01/15/2025 Results Follow-Up [facility] [address] [place] [phone] Valeria Machuca APRN 01/12/2025 2:30 PM EDT Office Visit [facility] [address] [place] [phone] Valeria Machuca APRN Seropositive rheumatoid arthritis (Primary Dx); Immunodeficiency due to treatment with immunosuppressive medication; High risk medication use; Primary osteoarthritis involving multiple joints; Stage I pressure ulcer of left buttock; Fatigue, unspecified type; Rheumatoid arthritis involving multiple sites with positive rheumatoid factor 01/12/2025 Travel from Last 3 Months Social History Tobacco Use Types Packs/Day Years Used Date Smoking Tobacco: Every Day Cigarettes 1 53.6 Started: 1971 Smokeless Tobacco: Current Tobacco Cessation:Ready to Q uit: Not Asked; Counseling Given: Not Answered Alcohol Use Standard Drinks/Week Comments Yes 2 (1 standard drink = 0.6 oz pur e alcohol) AUDIT-C Answer Date Recorded Q1: How often do you have a drink containing alcohol? 4 or more times a week 04/20/2024 Q2: How many drinks containi ng alcohol do you have on a typical day when you are drinking? 1 or 2 Q3: How often do you have si x or more drinks on one occasion? Never 04/20/2024 Sex and Gender Information Value Date Recorded Sex Assigned at Male 03/20/2024 2:20 PM EDT Legal Sex Male 2:18 PM EDT Gender Identity Male 03/20/2024 2:20 PM EDT Sexual Orientation Straight 09/19/2024 8: 11 AM EST Last Filed Vital Signs Vital Sign Reading Time Taken Comments Blood Pressure 140/76 01/12/2025 2:19 PM EDT Pulse 90 01/12/2025 2:19 PM EDT Temperature 36.8 C (98.2 F) 01/12/2025 2:19 PM EDT Respiratory Rate - - Oxygen Saturation - - Inhaled Oxygen Concentration - - Weight 132 kg (290 lb) 01/12/2025 2:19 PM EDT Height 177.8 cm (5' 10 ) 01/12/2025 2:19 PM EDT Body Mass Index 41.61 01/12/2025 2:19 PM EDT Plan of Treatment Upcoming Encounters Date Type Department Care Team (Late st Contact Info) Description 05/14/2025 2:30 PM EDT Office Visit [facility] [address] [phone] Valeria Machuca APRN [address] [address] Health Maintenance Due Date Last Done Comments Pneumococcal Vaccine 50+ (1 of 2 - PCV) 1977 COLOGUARD 2003 COLON CANCER SCREENING 5 YEA R SIGMOIDOSCOPY 2003 COLONOSCOPY 2003 COL[address] CANCER SCREENING 2003 CT COLONOGRAPHY 2003 FECAL OCCULT BLOOD TEST 2003 FIT Testing (1 year) 2003 TDAP/TD VACCINES (2 - Tdap) 10/01/2006 10/01/1996 LUNG CANCER SCREENING 2008 AAA SCREEN ONCE 2023 ANNUAL WELLNESS VISIT 03/20/2024 ZOSTER VACCINE (2 of 2) 03/29/2024 02/02/2024 COVID-19 Vaccine (3 - 2023- season) 2024, 01/11/2021 INFLUENZA VACCINE 05/02/2025 05/16/2024, , 07/05/2017 HEPATITIS C SCREENING Completed 09/15/2024 Goals Goal Patient Goal Type Associated Problems Recent Progress Patient-Stated? Author Specialty Pharmacy General Goal General No Alvin Maier, PharmD Note: Reduce number of flares and pain score. Procedures Procedure Name Priority Date/Time Associated Diagnosis Comments SEDIMENTATION RATE Routine 01/12/2025 3: 20 PM EDT Seropositive rheumatoid arthritis C-REACTIVE PROTEIN Routine 01/12/2025 3: 20 PM EDT Seropositive rheumatoid arthritis COMPREHENSIVE METABOLIC PANEL Routine 01/12/2025 3:20 PM EDT Seropositive rheumatoid arthritis High risk medication use CBC (NO DIFF) Routine 01/12/2025 3:20 PM EDT Seropositive rheumatoid arthritis High risk medication use HEPATITIS PANEL, ACUTE Routine 09/15/2024 2:32 PM EST Seropositive rheumatoid arthritis High risk medication use Primary osteoarthritis involving multiple joints Fatigue, unspecified type from Last 3 Months or Most Recently Relevant to Health Maintenance Results * (ABNORMAL) Sedimentation Rate (01/12/2025 3:20 PM EDT) Pathologist [facility] Sed Rate 36(H) 0 - 30 mm/hr [facility] Blood 01/12/2025 3:20 PM EDT 01/12/2025 Narrative [facility] ([facility]) - 01/13/2025 9:07 AM EDT Performed at: - [facility] [address] [place] [address] [id number] Slurry Mixer: Uziel Lundy PhD, Phone: [phone] Patient Fasting: Y Valeria Machuca APRN LAB BLOOD ORDERABLES Final Result [facility] [address] [place] [id number], [facility] [address] [place] [address], * (ABNORMAL) CBC (No Diff) (01/12/2025 3:20 PM EDT) [facility] WBC 12.0(H) 3.4 - 10.8 x10E3/uL [facility] RBC 3.98(L) 4.14 - 5.80 x10E6/uL [facility] Hemoglobin 14.3 13.0 - 17.7 g/dL [facility] Hematocrit 42.9 37.5 - 51.0 % [facility] MCV 108(H) 79 - 97 fL [facility] MCH 35.9(H) 26.6 - 33.0 pg [facility] MCHC 33.3 31.5 - 35.7 g/dL [facility] RDW 14.2 11.6 - 15.4 % [facility] Platelets 329 150 - 450 x10E3/uL [facility] Blood 01/12/2025 3:20 PM EDT 01/12/2025 Narrative [facility] ([facility]) - 01/13/2025 9:07 AM EDT Performed at: - [address] [id number] Slurry Mixer: Uziel Lundy PhD, Phone: [phone] Patient Fasting: Y Valeria Machuca OIL WELL SERVICES DISPATCHER LAB BLOOD ORDERABLES Final Result Performing Organization Address City/[facility]/ZIP Co de Phone Number [facility] ([facility]) [address] [place] [address], [place] [phone] [facility] [address] [place] [address], [place] [phone] * C-reactive Protein (01/12/2025 3:20 PM EDT) [facility] C-Reactive Protein 5 0 - 10 mg/L [facility] Blood 01/12/2025 3:20 PM EDT 01/12/2025 Narrative [facility] ([facility]) - 01/13/2025 9:07 AM EDT Performed at: - [facility] [address] [place] [id number] Slurry Mixer: Uziel Lundy PhD, Phone: [phone] Patient Fasting: Y Valeria Machuca OIL WELL SERVICES DISPATCHER LAB BLOOD ORDERABLES Final Result Performing Organization Address City/[facility]/ZIP Co de Phone Number [facility] ([facility]) [address] [place] [address], [place] [phone] [facility] [address] [place] [address], [place] [phone] * Comprehensive Metabolic Panel (01/12/2025 3:20 PM EDT) [facility] Glucose 88 70 - 99 mg/dL [facility] BUN 13 8 - 27 mg/dL [facility] Creatinine 0.95 0.76 - 1.27 mg/dL [facility] EGFR Result 88 >59 mL/min/1.7 3 [facility] BUN/Creatinine Ratio 14 10 - 24 [facility] Sodium 137 134 - 144 mmol/L [facility] Potassium 4.7 3.5 - 5.2 mmol/L [facility] Chloride 100 96 - 106 mmol/L [facility] Total CO2 22 20 - 29 mmol/L [facility] Calcium 9.7 8.6 - 10.2 mg/dL [facility] Total Protein 6.6 6.0 - 8.5 g/dL [facility] Albumin 4.3 3.9 - 4.9 g/dL [facility] Globulin 2.3 1.5 - 4.5 g/dL [facility] Total Bilirubin 0.4 0.0 - 1.2 mg/dL [facility] Alkaline Phosphatase 120 44 - 121 IU/L [facility] AST (SGOT) 21 0 - 40 IU/L [facility] ALT (SGPT) 18 0 - 44 IU/L [facility] Blood 01/12/2025 3:20 PM EDT 01/12/2025 Narrative [facility] (AMBULATORY) - 01/13/2025 9:07 AM EDT Performed at: [address] [place] [id number] Slurry Mixer: Uziel Lundy PhD, Phone: [phone] Patient Fasting: Y Valeria Machuca APRN LAB BLOOD ORDERABLES Final Result Performing Organization Address City/State/[facility] Co de Phone Number [facility] ([facility]) [address] [place] [id number], [facility] [address] [place] [address], * Hepatitis Panel, Acute (09/15/2024 2:32 PM EST) Hepatitis B Surface Ag Non-Reacti ve Non-Reacti ve 09/15/2024 11:42 PM [facility] Hep A IgM Non-Reacti ve Non-Reacti ve 09/15/2024 11:42 PM [facility] Hep B C IgM Non-Reacti ve Non-Reacti ve 09/15/2024 11:42 PM [facility] Hepatitis C Ab Non-Reacti ve Non-Reacti ve 09/15/2024 11:42 PM [facility] Blood Venipuncture / Unknown 09/15/2024 2:32 PM EST 09/15/2024 2:33 PM EST [facility] - 09/15/2024 11:42 PM EST Results may be falsely decreased if patient taking Biotin. us Damien Cosme DO LAB BLOOD ORDERABLES F inal Result [facility]
[address] [place] [address], [place] [phone] from Last 3 Months or Most Recently Relevant to Health Maintenance Insurance [facility] MEDICARE ADVANTAGE HMO Care Teams Marketing Project Specialist Relationship Specialty Start Date End Date Jennifer Newton APRN [address] [facility] [address] [place] [address] PCP - General Family Medicine 03/20/24
--- OUTSIDE RECORDS SUMMARY | 2025-03-21 13:20 | XMS_ITS | Encounter Summary ---
Author Organization Healthcare Address [address] [place] [address] Care Team Providers Care Car Dispatcher Name Role Phone Savage Reardon MD Primary Care Provider [phone] lCayton James MD Unavailable [phone] Reason for Visit * Reason Comments Med Refill Encounter Details Date Type Department Care Team (Late st Contact Info) Description 11/19/2024 Refill [place] [facility] [address] [place] [address] Clayton James MD [address] [place] [address] Degeneration of intervertebral disc of [...] documented as of this encounter Care Teams Car Dispatcher Relationship Specialty Start Date End Date Savage Reardon MD [address] [place] [address] PCP - General 12/13/20 Clayton James MD [address] [place] [address] Surgeon Neurosurgery 09/22/24 documented as of this encounter
--- OUTSIDE RECORDS SUMMARY | 2025-03-21 13:20 | XMS_ITS | Encounter Summary ---
Author Organization Healthcare Address [address] [place] [address] Care Team Providers Care Dirt Shoveler Name Role Phone Savage Reardon MD Primary Care Provider [phone] Clayton James MD Unavailable [phone] Reason for Visit * Reason Comments Med Refill Encounter Details Date Type Department Care Team (Late st Contact Info) Description 12/12/2024 Refill [place] [facility] [address] [place] [address] Clayton James MD [address] [place] [address] Degeneration of intervertebral disc of [...] 12/12/2024 8:12 AM EDT Tk request #: [id number] reviewed and appropriate. Refill sent to the [...] documented as of this encounter Care Teams Dirt Shoveler Relationship Specialty Start Date End Date Savage Reardon MD [address] [place] [address] PCP - General 12/13/20 Clayton James MD [address] [place] [address] Surgeon Neurosurgery 09/22/24 documented as of this encounter
--- OUTSIDE RECORDS SUMMARY | 2025-03-21 13:20 | XMS_ITS | Encounter Summary ---
Author Organization [facility] Address [address] [place] [address] Care Team Providers Care Medical Economics Consultant Name Role Phone Jennifer Newton APRN Primary Care Provid er Encounter Details Date Type Department Care Team (Late st Contact Info) Description 01/15/2025 Results Follow-Up [facility] [address] [facility] [address] [place] [address] Valeria Machuca APRN 330 [facility] [address] [place] [address] Social History Tobacco Use Types Packs/Day Years Used Date Smoking Tobacco: Every Day Cigarettes 1 53.6 Started: 1974 Smokeless Tobacco: Current Alcohol Use Standard Drinks/Week Comments Yes 2 [...] Orientation Straight 09/19/2024 8: 11 AM EST documented as of this encounter Plan of Treatment Upcoming Encounters Date Type Department Care Team (Late st Contact Info) Description 05/14/2025 2:30 PM EDT Office Visit [facility] [address] [facility] [address] [place] [address] Valeria Machuca APRN [address] [facility] [address] [place] [address] documented as of this encounter Goals Goal Patient Goal Type Associated Problems Recent Progress Patient-Stated? Author Specialty Pharmacy General Goal General No Alvin Maier, PharmD Note: Reduce number of flares and pain score. documented as of this encounter Visit Diagnoses Not on filedocumented in this encounter Care Teams Medical Economics Consultant Relationship Specialty Start Date End Date Jennifer Newton APRN [address] [facility] [address] [facility] [address] [place] [address] PCP - General Family Medicine 03/20/24 documented as of this encounter
--- OUTSIDE RECORDS SUMMARY | 2025-03-21 13:20 | XMS_ITS | Encounter Summary ---
Author Organization Healthcare Address [address] [place] [address] Care Team Providers Care Circular Saw Edge Fuser Name Role Phone Savage Reardon MD Primary Care Provider [phone] Clayton James MD Unavailable [phone] Encounter Details Date Type Department Care Team (Late st Contact Info) Description 05/04/2024 Orders Only External Location [address] [place] [address] Savage Reardon MD [address] [place] [address] Social History Tobacco Use Types [...] on filedocumented in this encounter Care Teams Circular Saw Edge Fuser Relationship Specialty Start Date End Date Savage Reardon MD [address] [place] [address] PCP - General 12/13/20 Clayton James MD [address] [place] [address] Surgeon Neurosurgery 09/22/24 documented as of this encounter
--- OUTSIDE RECORDS SUMMARY | 2025-03-21 13:20 | XMS_ITS ---
Author Organization [facility] Address [address] [place] [address] Care Team Providers Care Fire Technician Name Role Phone Jennifer Newton APRN Primary Care Provid er Rheumatology - External Fill Status:Enrolled (Active) Start date:01/16/2025 Enrollment date:01/16/2025 Enrollment reason:Identified as being on target medication Current support & services provided:Benefits Investigation, External Pharmacy Dispensing Linked medications:Adalimumab (Active) Linked problems:Seropositive rheumatoid arthritis (Active) Overview Maddi KAUFFMAN approved through 08.01.25 Continued Care and Services Coordination
--- OUTSIDE RECORDS SUMMARY | 2025-03-21 13:20 | XMS_ITS | Encounter Summary ---
[facility] Address [address] [place] [address] Care Team Providers Care Health Companion Name Role Phone Jennifer Newton APRN Primary Care Provid er Reason for Visit * Reason Comments Med Refill Encounter Details Date Type Department Care Team (Late st Contact Info) Description 03/10/2025 Refill [facility] [address] [address] Damien Cosme, [address] [place] [phone] Social History Tobacco Use Types Packs/Day Years [...] Description 05/14/2025 2:30 PM EDT Office Visit [facility] 330 [facility] [address] [place] [phone] Valeria Machuca APRN 330 [facility] [address] [place] [address] documented as of this encounter Goals Goal Patient Goal Type Associated Problems Recent Progress Patient-Stated? Author Specialty Pharmacy General Goal General No Alvin Maier, JonatanD Note: Reduce number of flares and pain score. documented as of this encounter Visit Diagnoses Not on filedocumented in this encounter Care Teams Health Companion Relationship Specialty Start Date End Date Jennifer Newton APRN [address] [facility] [address] [facility] [address] PCP - General Family Medicine 03/20/24 documented as of this encounter
--- OUTSIDE RECORDS SUMMARY | 2025-03-21 13:20 | XMS_ITS | Encounter Summary ---
Author Organization Healthcare Address [address] [place] [address] Care Team Providers Care Pigment Processor Name Role Phone Savage Reardon MD Primary Care Provider Clayton James MD Unavailable [phone] Encounter Details Date Type Department Care Team (Late st Contact Info) Description 02/09/2025 Refill [place] [facility] [address], [address] [place] [address] Gris Sylvester PA [address] [place] [address] Degeneration of intervertebral disc of [...] documented as of this encounter Care Teams Pigment Processor Relationship Specialty Start Date End Date Savage Reardon MD [address] [place] [address] PCP - General 12/13/20 Clayton James MD [address] [place] [address] Surgeon Neurosurgery 09/22/24 documented as of this encounter
--- OUTSIDE RECORDS SUMMARY | 2025-03-21 13:21 | XMS_ITS | Clinical Summary ---
Author Organization [facility] Address [address] [place] [address] Care Team Providers Care Jute Bag Cutting Machine Operator Name Role Phone Savage Reardon MD Primary Care Provider [phone] Clayton James MD Unavailable [phone] Allergies Active Allergy Reactions Criticality Noted [...] times a day. 90 tablet 02/10/20 25 Active Active Problems No known active problems Encounters Date Type Department Care Team Description 03/21/2025 Refill [place] [address], [address] [place] [phone] Clayton James MD Degeneration of intervertebral disc of lumbar region with discogenic back pain and lower extremity pain; Chronic bilateral low back pain with right-sided sciatica 02/09/2025 Refill [facility] [address], [address]st [place] [address] Gris Sylvester PA Degeneration of intervertebral disc of lumbar region with discogenic back pain and lower extremity pain (Primary Dx); Chronic bilateral low back pain with right-sided sciatica 02/09/2025 Refill [facility] [address], [address] [place] [phone] Daniel Grajeda MD Degeneration of intervertebral disc [...] 2008 UKY-Zoster Vaccines (1 of 2) 2008 [id number]-[id number]-19 Vaccine (1 - 20 24-25 season) 2024 UKY-Influenza Vaccine (#1) 2025 UKY-RSV [...] this topic Insurance [employer] MED[employer] Care Teams Jute Bag Cutting Machine Operator Relationship Specialty Start Date End Date Savage Reardon MD [address] [place] [address] PCP - General 12/13/20 Clyaton James MD [address] [place] [address] Surgeon Neurosurgery 09/22/24
--- OUTSIDE RECORDS SUMMARY | 2025-03-21 13:21 | XMS_ITS | Encounter Summary ---
Author Organization Healthcare Address [address] [place] [address] Care Team Providers Care Bilingual Counter Sales Retail Name Role Phone Savage Reardon MD Primary Care Provider [phone] Clayton James MD Unavailable [phone] Reason for Visit * Reason Comments Med Refill Encounter Details Date Type Department Care Team (Late st Contact Info) Description 02/09/2025 Refill [place] [facility] [address], [address] [place] [address] Daniel Grajeda MD [address] [place] [address] Degeneration of intervertebral disc of [...] documented as of this encounter Care Teams Bilingual Counter Sales Retail Relationship Specialty Start Date End Date Savage Reardon MD [address] [place] [address] PCP - General 12/13/20 Clayton James MD [address] [place] [address] Surgeon Neurosurgery 09/22/24 documented as of this encounter
--- NOTE | 2025-03-21 13:27 | EXP.PAIN.SOA ---
[facility] Disclaimer: The information contained in this section may have been updated after the patient was seen, as this information can be updated by other users. Medical History Lymphedema Incontinence BLADDER Enlarged prostate Anxiety Coronary artery sclerosis History of COVID-19 Irritable bowel syndrome (IBS) Paraseptal emphysema Typical angina Snoring Daytime somnolence Fatigue Atypical pneumonia Pulmonary emphysema Smoking greater than 30 pack years History of rheumatoid arthritis Acute and chronic respiratory failure with hypoxia Viral pneumonia Grief SOBOE (shortness of breath on exertion) Acute on chronic heart failure with preserved ejection fraction (HFpEF) Deviated nasal septum Macular degeneration CHF (congestive heart failure) COPD exacerbation COPD (chronic obstructive pulmonary disease) Major depressive disorder Callus Abnormal nuclear cardiac imaging test Angina pectoris Hypertension Hyperlipidemia Abnormal result of cardiovascular function study Tachycardia Unstable angina Dizziness GERD (gastroesophageal reflux disease) Abnormal cardiovascular stress test Typical angina Tobacco dependence syndrome Abnormal EKG CAD (coronary artery disease) Edema Dyspnea Chest pain Surgical History H/O neck surgery 2 PLATES, 4 SCREWS History of hernia surgery Two reported operations H/O removal of cyst History of cardiac cath Reported total of 10 stents placed H/O heart artery stent Reported total of 10 stents placed History of coronary artery stent placement Family History Other Cancer Heart disease Hypertension Melanoma Social History Smoking Status: Current every day smoker tobacco type: cigarettes packs per day: 1 and pipe alcohol intake: current alcohol intake frequency: a few times a month substance use type: former substance user and marijuana counseling given: No (patient refused) counseling provided: none current occupational status: other Travel in the last 8 weeks?: None household members: children housing: house marital status: senior living: No caffeine: Yes physical activity: none PM Subjective & Objective Subjective Subjective:: Patient is a pleasant 64-year-old male who presents today for worsening low back and hip pain. Patient does state that he ended up having to miss his appointment for the lumbar radiofrequency ablation due to an emergency. He states that he has been having worsening pain since and even noticed more pain that does feel like it goes into his hips with certain positions. He is still stating a lot of the pain is more related to bending, twisting or lifting. He states the pain is interfering with his ability to perform activities of daily living such as cooking and cleaning. He denies any radiating symptoms to his legs and does state that he would like to get back rescheduled for the ablation. Patient denies any new falls. He has continued conservative therapy. His Tk has been reviewed and is appropriate. Review of Systems: General: No recent weight changes, no fever, no sleep disturbances Respiratory: No cough, no shortness of air, no recurring pulmonary infections Cardiovascular/peripheral vascular: No chest pain, no palpitations, no edema, no shortness of breath Gastrointestinal: No new onset incontinence, normal bowel movements reported Genitourinary: No new onset incontinence Musculoskeletal: Low back pain, hip pain Psychiatric: [Normal mood/affect] Neurological: [Denies weakness in extremities], [denies balance issues] Pain at rest (0-10 scale): 5 Objective Objective:: Physical Exam: General: Alert and oriented x3, no acute distress, pleasant and cooperative Lungs: Respirations even and unlabored, symmetrical chest expansion Eyes: PERRL Musculoskeletal: Flexion and extension of lumbar [spine] somewhat guarded secondary to pain, [antalgic gait noted] positive Kemps test Neurological: Speech clear, no gross sensory deficit Has patient had previous pain injection?: No Conservative treatment options previously tried: Home exercise plan Length of treatment: Longer than 12 weeks Meds Home Medications and Allergies Home Medications ?Medication ?Instructions ?Recorded ?Confirmed ?Type albuterol sulfate 90 mcg/actuation 2 puff inhalation QIDP PRN 10/27/18 03/14/25 History aerosol inhaler Shortness Of Breath 25 days #9 grams tamsulosin 0.4 mg capsule 0.4 mg PO HS 90 days #90 caps 10/27/18 03/14/25 History folic acid 1 mg tablet 1 mg PO DAILY 10/26/22 03/14/25 History methotrexate sodium 2.5 mg tablet 20 mg PO WEEKLY 10/26/22 03/14/25 History atorvastatin 80 mg tablet 80 mg PO HS 03/12/24 03/14/25 History nitroglycerin 0.4 mg sublingual 0.4 mg sublingual Q5MINP PRN Chest 03/12/24 03/14/25 History tablet Pain potassium chloride 10 mEq 10 meq PO DAILY 03/12/24 03/14/25 History tablet,extended release cholecalciferol (vitamin D3) 125 5,000 unit PO DAILY 04/17/24 03/14/25 History mcg (5,000 unit) tablet (Vitamin D3) dutasteride 0.5 mg capsule 0.5 mg PO DAILY 04/17/24 03/14/25 History lamotrigine 150 mg tablet 150 mg PO BID 04/17/24 03/14/25 History vit C 250 mg-vit E 90 mg-zinc 40 1 cap PO BID 04/17/24 03/14/25 History mg-copper 1 [id number] capsule (PreserVision AREDS-2) aspirin 81 mg tablet,delayed 81 mg PO DAILY 07/13/24 03/14/25 History release furosemide 40 mg tablet 80 mg PO DAILY 07/13/24 03/14/25 History ipratropium 0.5 mg-albuterol 3 mg 3 ml inhalation Q6H PRN shortness 07/15/24 03/14/25 Rx (2.5 mg base)/3 mL nebulization of breath or wheezing 30 days #180 soln mL clopidogrel 75 mg tablet See Rx Instructions .Route 10/16/24 03/14/25 Rx .COMPLEX #90 tabs gabapentin 600 mg tablet 600 mg PO TID 10/23/24 03/14/25 History ranolazine 1,000 mg See Rx Instructions .Route 11/20/24 03/14/25 Rx tablet,extended release,12 hr .COMPLEX #180 tabs isosorbide mononitrate 60 mg 90 mg (1.5 x 60 mg) PO BID 30 days 11/29/24 03/14/25 Rx tablet,extended release 24 hr #90 tabs trazodone 100 mg tablet 100 - 150 mg (1 - 1.5 x 100 mg) PO 12/15/24 03/14/25 Rx DAILY #45 tabs amlodipine 10 mg tablet 10 mg PO DAILY 12/19/24 03/14/25 History spironolactone 50 mg tablet 50 mg PO DAILY #90 tabs 12/19/24 03/14/25 Rx pantoprazole 40 mg tablet,delayed See Rx Instructions .Route 01/08/25 03/14/25 Rx release .COMPLEX #90 tabs methocarbamol 750 mg tablet 750 mg PO TID #90 tabs 01/17/25 03/14/25 Rx metoprolol succinate 100 mg 150 mg (1.5 x 100 mg) PO BID 30 02/21/25 03/14/25 Rx tablet,extended release 24 hr days #90 tabs lamotrigine 25 mg tablet (Lamictal) 25 mg PO BID #60 tabs 03/11/25 03/14/25 Rx New Prescriptions to Start Prescriptions: Allergies Allergy/AdvReac Type Severity Reaction Status Date / Time nickel (NICKEL) Allergy Unknown I-RASH Verified 03/14/25 14:05 quetiapine (From SEROQUEL) Allergy Unknown I-RASH Verified 03/14/25 14:05 mirtazapine AdvReac Intermediate Hallucinati Verified 03/14/25 14:05 ng NSAIDS (Non-Steroidal AdvReac Other Verified 03/14/25 14:05 Anti-Inflamma Assessment and Plan *Assessment and plan (1) Lumbar facet arthropathy: Status: Acute Category: Medical Code(s): M47.816 - Spondylosis without myelopathy or radiculopathy, lumbar region Plan Patient has had successful 1st and 2nd lumbar medial branch blocks that did provide 80% relief however only lasted temporarily for about 3 hours. Patient did have very minimal pain of about a 1 out of 10 during that timeframe and felt like he had overall improvement in function with decreased pain. Patient was reviewed over again the risk and benefits of the lumbar RFA and he would like to proceed forward with this plan of care. Patient is having worsening back pain and denies any radiating symptoms into his legs. Patient did have limited range of motion a positive Kemps test today. Patient will be scheduled for a lumbar RFA bilaterally L4-L5 and L5-S1 under fluoroscopy. We did review over his increasing hip pain which she has had updated imaging with no acute findings. We will follow-up after this procedure if he does have significant relief with both the low back and hips. Patient will be scheduled for lumbar radiofrequency ablation bilaterally L4-L5 and L5-S1 under fluoroscopy. This will be done at 80 ?C with a nonpulsed thermal burn. Patient has been instructed to contact the clinic with any concerns before the next appointment. Dr. Alanis has reviewed this note and agrees with this plan of care. This note was dictated using voice recognition software and make contain errors or omissions. All injections are used with Lidocaine, Bupivacaine and dexamethasone. Occasionally urine drug screen is needed to verify patient's compliance with our office pain contract. This is ordered based off specific treatments related to chronic pain with the potential to abuse certain medications.
[2025-03-21 14:53] VITALS: BP 111/57; PULSE 70; RESP 18; O2SAT 94; BMI 41.0
== END 2025-03-21 23:59 | disposition home or self-care (01) ==
LOC: SC.PAIN 13:14
PROVIDERS: PCP Nurse Practitioner Family; Visit Provider Nurse Practitioner Family
DX: M47.816 Spondylosis without myelopathy or radiculopathy, lumbar region (principal)
CPT/HCPCS: 99212; G0463

== ENCOUNTER 2025-03-29 07:48 | Emergency (ER) | payer MEDICARE, SELFPAY ==
[2025-03-29] VITALS (8 sets, daily range): BP systolic 101–120; BP diastolic 57–71; PULSE 48–64; RESP 15–20; TEMP 36.6–36.7; O2SAT 92–98; BMI 43.0
--- OUTSIDE RECORDS SUMMARY | 2025-03-29 07:58 | XMS_ITS | Encounter Summary ---
Author Organization Healthcare Address [address] [place] [address] Care Team Providers Care Stenciling Machine Tender Name Role Phone Savage Reardon MD Primary Care Provider [phone] Clayton James MD Unavailable [phone] Reason for Visit * Reason Comments Med Refill Encounter Details Date Type Department Care Team (Late st Contact Info) Description 12/12/2024 Refill [place] [facility] [address], [address]st [place] [address] Clayton James MD [address] [place] [address] Degeneration of intervertebral disc of [...] 12/12/2024 8:12 AM EDT Tk request #: [id number] reviewed and appropriate. Refill sent to the [...] documented as of this encounter Care Teams Stenciling Machine Tender Relationship Specialty Start Date End Date Savage Reardon MD [address] [place] [address] PCP - General 12/13/20 Clayton James MD [address] [place] [address] Surgeon Neurosurgery 09/22/24 documented as of this encounter
--- OUTSIDE RECORDS SUMMARY | 2025-03-29 07:58 | XMS_ITS | Encounter Summary ---
[facility] Address [address] [place] [address] Care Team Providers Care Computer Help Desk Representative Name Role Phone Jennifer Newton APRN Primary Care Provid er Reason for Visit * Reason Comments Med Refill Encounter Details Date Type Department Care Team (Late st Contact Info) Description 03/10/2025 Refill [facility] [address] [address] Damien Cosme, [address] [place] [phone] Social History Tobacco Use Types Packs/Day Years Used Date Smoking Tobacco: Every Day Cigarettes 1 53.7 Started: 1974 Smokeless Tobacco: Current Alcohol Use [...] 05/14/2025 2:30 PM EDT Office Visit [facility] 330 [facility] [address] [place] [phone] Valeria Machuca APRN 330 [facility] 100 [place] [address] documented as of this encounter Goals Goal Patient Goal Type Associated Problems Recent Progress Patient-Stated? Author Specialty Pharmacy General Goal General No Alvin Maier, JonatanD Note: Reduce number of flares and pain score. documented as of this encounter Visit Diagnoses Not on filedocumented in this encounter Care Teams Computer Help Desk Representative Relationship Specialty Start Date End Date Jennifer Newton APRN 12[address] [facility] [address] [facility] [address] PCP - General Family Medicine 03/20/24 documented as of this encounter
--- OUTSIDE RECORDS SUMMARY | 2025-03-29 07:58 | XMS_ITS | Encounter Summary ---
Author Organization Healthcare Address [address] [place] [address] Care Team Providers Care Travel Rn Or Name Role Phone Savage Reardon MD Primary Care Provider [phone] Clayton James MD Unavailable [phone] Encounter Details Date Type Department Care Team (Late st Contact Info) Description 05/04/2024 Orders Only External Location [address] [place] [address] Savage Reardon MD [address] [place] [address] Social History Tobacco Use Types [...] on filedocumented in this encounter Care Teams Travel Rn Or Relationship Specialty Start Date End Date Savage Reardon MD [address] [place] [address] PCP - General 12/13/20 Clayton James MD [address] [place] [address] Surgeon Neurosurgery 09/22/24 documented as of this encounter
--- OUTSIDE RECORDS SUMMARY | 2025-03-29 07:58 | XMS_ITS | Clinical Summary ---
Author Organization [facility] Address [address] [place] [address] Care Team Providers Care Extractor And Wringer Operator Name Role Phone Savage Reardon MD Primary Care Provider [phone] Clayton James MD Unavailable [phone] Allergies Active Allergy Reactions Criticality Noted [...] Type Department Care Team Description 03/21/2025 Refill [place] [id number], [address] [place] [phone] Clayton James MD Degeneration of intervertebral disc of lumbar region with discogenic back pain and lower extremity pain; Chronic bilateral low back pain with right-sided sciatica 02/09/2025 Refill [facility] [address], 1st [place] [address] Gris Sylvester PA Degeneration of intervertebral disc of lumbar region with discogenic back pain and lower extremity pain (Primary Dx); Chronic bilateral low back pain with right-sided sciatica 02/09/2025 Refill [facility] [address], 1st [place] [phone] Daniel Grajeda MD Degeneration of intervertebral disc [...] 2008 UKY-Zoster Vaccines (1 of 2) 2008 [id number] Vaccine (1 - 20 24-25 season) 2024 [...] this topic Insurance [employer] MED[employer] Care Teams Extractor And Wringer Operator Relationship Specialty Start Date End Date Savage Reardon MD [address] [place] [address] PCP - General 12/13/20 Clayton James MD [address] [place] [address] Surgeon Neurosurgery 09/22/24
--- OUTSIDE RECORDS SUMMARY | 2025-03-29 07:58 | XMS_ITS | Encounter Summary ---
Author Organization Healthcare Address [address] [place] [address] Care Team Providers Care Labourers Name Role Phone Savage Reardon MD Primary Care Provider [phone] Clayton James MD Unavailable [phone] Encounter Details Date Type Department Care Team (Late st Contact Info) Description 02/09/2025 Refill [place] [facility] [address], [address] [place] [address] Gris Sylvester PA [address] [place] [address] Degeneration of intervertebral disc of [...] documented as of this encounter Care Teams Labourers Relationship Specialty Start Date End Date Savage Reardon MD [address] [place] [address] PCP - General 12/13/20 Clayton James MD [address] [place] [address] Surgeon Neurosurgery 09/22/24 documented as of this encounter
--- OUTSIDE RECORDS SUMMARY | 2025-03-29 07:58 | XMS_ITS | Encounter Summary ---
Author Organization Healthcare Address [address] [place] [address] Care Team Providers Care Dampproofer Name Role Phone Savage Reardon MD Primary Care Provider [phone] Clayton James MD Unavailable [phone] Reason for Visit * Reason Comments Med Refill Encounter Details Date Type Department Care Team (Late st Contact Info) Description 03/21/2025 Refill [place] [facility] [address], [address] [place] [address] Clayton James MD [address] [place] [address] Degeneration of intervertebral disc of [...] documented as of this encounter Care Teams Dampproofer Relationship Specialty Start Date End Date Savage Reardon MD [address] [place] [address] PCP - General 12/13/20 Clayton James MD [address] [place] [address] Surgeon Neurosurgery 09/22/24 documented as of this encounter
--- OUTSIDE RECORDS SUMMARY | 2025-03-29 07:58 | XMS_ITS | Clinical Summary ---
Author Organization [facility] Address [address] [place] [address] Care Team Providers Care Shipping Lead Person Name Role Phone Jennifer Newton APRN Primary [...] normal, DS DNA normal, Ribosomal P normal, CODE ENFORCEMENT INSPECTOR normal, SCL 70 normal, Morrow normal, SSA [...] normal, DS DNA normal, Ribosomal P normal, CODE ENFORCEMENT INSPECTOR normal, SCL 70 normal, Morrow normal, SSA [...] normal, DS DNA normal, Ribosomal P normal, CODE ENFORCEMENT INSPECTOR normal, SCL 70 normal, Morrow normal, SSA [...] Type Department Care Team Description 03/10/[address] [facility] [address] [place] [phone] Damien Cosme DO 01/15/2025 Results Follow-Up [facility] [address] [place] [phone] Valeria Machuca APRN 01/12/2025 2:30 PM EDT Office Visit [facility] [address] [place] [phone] Valeria Machuca APRN Seropositive rheumatoid arthritis (Primary [...] Tobacco: Every Day Cigarettes 1 53.7 Started: 1973 Smokeless Tobacco: Current Tobacco Cessation:Ready [...] Description 05/14/2025 2:30 PM EDT Office Visit [facility] [address] [phone] Valeria Machuca APRN [address] [address] Health Maintenance Due Date Last [...] Sedimentation Rate (01/12/2025 3:20 PM EDT) Pathologist [facility] Sed Rate 36(H) 0 - 30 mm/hr [facility] Blood 01/12/2025 3:20 PM EDT 01/12/2025 Narrative [facility] ([facility]) - 01/13/2025 9:07 AM EDT Performed at: - [facility] [address] [place] [id number] Judge: Uziel Lundy PhD, Phone: [phone] Patient Fasting: Y Valeria Machuca APRN LAB BLOOD ORDERABLES Final Result [facility] ([facility]) [address] [place] [id number], [facility] [address] [place] [address], * (ABNORMAL) CBC (No Diff) (01/12/2025 3:20 PM EDT) [facility] WBC 12.0(H) 3.4 - 10.8 x10E3/uL [...] 01/13/2025 9:07 AM EDT Performed at: - [address] [id number] Judge: Uziel Lundy PhD, Phone: [phone] Patient Fasting: Y Valeria Machuca IN FLIGHT REFUELING SYSTEM REPAIRER LAB BLOOD ORDERABLES Final Result Performing Organization Address City/[facility]/ZIP Co de Phone Number [facility] ([facility]ULATORY) [address] [place] [address], [place] [phone] [facility] [address] [place] [address], [place] [phone] * C-reactive Protein (01/12/2025 3:20 PM EDT) [facility] C-Reactive Protein 5 0 - 10 mg/L [facility] Blood 01/12/2025 3:20 PM EDT 01/12/2025 Narrative [facility] ([facility]) - 01/13/2025 9:07 AM EDT Performed at: - [facility] [address] [place] [id number] Judge: Uziel Lundy PhD, Phone: [phone] Patient Fasting: Y Valeria Machuca IN FLIGHT REFUELING SYSTEM REPAIRER LAB BLOOD ORDERABLES Final Result Performing Organization Address City/[facility]/ZIP Co de Phone Number [facility] ([facility]ORY) [address] [place] [address], [place] [phone] [facility] [address] [place] [address], [place] [phone] * Comprehensive Metabolic Panel (01/12/2025 3:20 PM EDT) [facility] Glucose 88 70 - 99 mg/dL [...] 01/12/2025 3:20 PM EDT 01/12/2025 Narrative [facility] (AMBULATORY) - 01/13/2025 9:07 AM EDT Performed at: [address] [place] [id number] Judge: Uziel Lundy PhD, Phone: [phone] Patient Fasting: Y Valeria Machuca APRN LAB BLOOD ORDERABLES Final Result Performing Organization Address City/State/[facility] Co de Phone Number [facility] (AMBULATORY) [address] [place] [phone], [facility] [address] [place] [address], * Hepatitis Panel, Acute (09/15/2024 2:32 PM EST) Hepatitis B Surface Ag Non-Reacti ve Non-Reacti ve 09/15/2024 11:42 PM [facility] Hep A IgM Non-Reacti ve Non-Reacti ve 09/15/2024 11:42 PM [facility] Hep B C IgM Non-Reacti ve Non-Reacti ve 09/15/2024 11:42 PM [facility] Hepatitis C Ab Non-Reacti ve Non-Reacti ve 09/15/2024 11:42 PM [facility] Blood Venipuncture / Unknown 09/15/2024 2:32 PM EST 09/15/2024 2:33 PM EST [facility] - 09/15/2024 11:42 PM EST Results may be falsely decreased if patient taking Biotin. us Damien Cosme DO LAB BLOOD ORDERABLES F inal Result [facility]
[address] [place] [address], [place] [phone] from Last 3 Months or Most Recently Relevant to Health Maintenance Insurance [facility] MEDICARE ADVANTAGE HMO Care Teams Shipping Lead Person Relationship Specialty Start Date End Date Jennifer Newton APRN [address] [facility] [address] [place] [address] PCP - General Family Medicine 03/20/24
--- OUTSIDE RECORDS SUMMARY | 2025-03-29 07:58 | XMS_ITS | Encounter Summary ---
Author Organization [facility] Address [address] [place] [address] Care Team Providers Care Field Assembly Supervisor Name Role Phone Jennifer Newton APRN Primary Care Provid er Encounter Details Date Type Department Care Team (Late st Contact Info) Description 01/15/2025 Results Follow-Up [facility] 330 [facility] [address] [place] [address] Valeria Machuca APRN 330 [facility] [address] [place] [address] Social History Tobacco Use Types [...] Description 05/14/2025 2:30 PM EDT Office Visit [facility] 330 [facility] [address] [place] [phone] Valeria Machuca APRN 330 [facility] [address] [place] [address] documented as of this encounter Goals Goal Patient Goal Type Associated Problems Recent Progress Patient-Stated? Author Specialty Pharmacy General Goal General No Alvin Maier, PharmD Note: Reduce number of flares and pain score. documented as of this encounter Visit Diagnoses Not on filedocumented in this encounter Care Teams Field Assembly Supervisor Relationship Specialty Start Date End Date Jennifer Newton APRN [address] [facility] [address] [facility] [address] [place] [address] PCP - General Family Medicine 03/20/24 documented as of this encounter
--- OUTSIDE RECORDS SUMMARY | 2025-03-29 07:58 | XMS_ITS | Encounter Summary ---
Author Organization Healthcare Address [address] [place] [address] Care Team Providers Care Director Of Exhibits Name Role Phone Savage Reardon MD Primary Care Provider [phone] Clayton James MD Unavailable [phone] Reason for Visit * Reason Comments Med Refill Encounter Details Date Type Department Care Team (Late st Contact Info) Description 02/09/2025 Refill [place] [facility] [address] [place] [address] Daniel Grajeda MD [address] [place] [address] Degeneration of intervertebral disc of [...] documented as of this encounter Care Teams Director Of Exhibits Relationship Specialty Start Date End Date Savage Reardon MD [address] [place] [address] PCP - General 12/13/20 Clayton James MD [address] [place] [address] Surgeon Neurosurgery 09/22/24 documented as of this encounter
--- OUTSIDE RECORDS SUMMARY | 2025-03-29 07:58 | XMS_ITS ---
Author Organization [facility] Address [address] [place] [address] Care Team Providers Care Sheep And Wheat Farmer Name Role Phone Jennifer Newton APRN Primary Care Provid er Rheumatology - External Fill Status:Enrolled (Active) Start date:01/16/2025 Enrollment date:01/16/2025 Enrollment reason:Identified as being on target medication Current support & services provided:Benefits Investigation, External Pharmacy Dispensing Linked medications:Adalimumab (Active) Linked problems:Seropositive rheumatoid arthritis (Active) Overview Maddi KAUFFMAN approved through 08.01.25 Continued Care and Services Coordination
--- OUTSIDE RECORDS SUMMARY | 2025-03-29 07:58 | XMS_ITS | Encounter Summary ---
Author Organization [facility] Address [address] [place] [address] Care Team Providers Care Energy Auditor Name Role Phone Savage Reardon MD Primary Care Provider [phone] Clayton James MD Unavailable [phone] Reason for Visit * Reason Comments Med Refill Encounter Details Date Type Department Care Team (Late st Contact Info) Description 11/19/2024 Refill [place] [facility] [address] [place] [address] Clayton James MD [address] [place] [address] Degeneration of intervertebral disc of [...] documented as of this encounter Care Teams Energy Auditor Relationship Specialty Start Date End Date Savage Reardon MD [address] [place] [address] PCP - General 12/13/20 Clayton James MD [address] [place] [address] Surgeon Neurosurgery 09/22/24 documented as of this encounter
--- NOTE | 2025-03-29 08:06 | HMH.EDGENADL ---
Discharge Plan Disposition Patient Disposition: Home, Self-Care Condition: Good Prescriptions Prescriptions: No Action gabapentin 600 mg tablet 600 mg PO TID Patient Comments: TAKE ONE TABLET BY MOUTH THREE TIMES DAILY MAY CAUSE DROWSINESS multivitamin Tablet 1 tab PO DAILY polyethylene glycol 3350 [Miralax] 17 gram/dose powder 17 g PO DAILY Citrucel (sucrose) Powder 1 tbsp PO DAILY Creon 36,000-114,000- 180,000 unit capsule,delayed release(DR/EC) 1 cap PO QID Rx Instructions: administer with meals and/or snacks metoprolol succinate 100 mg tablet extended release 24 hr 150 mg PO BID 30 Days Qty: 90 2RF varenicline tartrate [Chantix Starting Month Box] 0.5 mg (11)- 1 mg (42) tablets,dose pack See Rx Instructions PO PER PKG DIR Qty: 53 0RF Rx Instructions: PO PER PKG DIR varenicline tartrate [Chantix Continuing Month Box] 1 mg tablet 1 mg PO BID Qty: 56 4RF tamsulosin 0.4 mg capsule 0.4 mg PO HS 90 Days Qty: 90 albuterol sulfate 90 mcg/actuation HFA aerosol inhaler 2 puff INHALATION QIDP PRN (Reason: Shortness Of Breath) 25 Days Qty: 9 Patient Comments: INHALE 2 PUFFS BY MOUTH FOUR TIMES DAILY * SHAKE WELL BEFORE USE * methotrexate sodium 2.5 mg tablet 20 mg PO WEEKLY Rx Instructions: PATIENT TAKES 8 TABLETS BY MOUTH ONCE WEEKLY ON WEDNESDAY folic acid 1 mg tablet 1 mg PO DAILY Patient Comments: TAKE ONE TABLET BY MOUTH EVERY DAY EXCEPT FOR THE DAY you take methotrexate Rx Instructions: Patient takes 6 days a week. trazodone 100 mg tablet 100 - 150 mg PO DAILY Qty: 45 2RF isosorbide mononitrate 60 mg tablet extended release 24 hr 90 mg PO BID 30 Days Qty: 90 2RF cariprazine [Vraylar] 1.5 mg capsule 1.5 mg PO DIRECTED 0RF clopidogrel 75 mg tablet See Rx Instructions .ROUTE .COMPLEX Qty: 90 3RF Dose Instruction: TAKE ONE TABLET BY MOUTH EVERY DAY Rx Instructions: TAKE ONE TABLET BY MOUTH EVERY DAY ranolazine 1,000 mg tablet extended release 12 hr See Rx Instructions .ROUTE .COMPLEX Qty: 180 3RF Dose Instruction: TAKE ONE TABLET BY MOUTH TWICE DAILY Rx Instructions: TAKE ONE TABLET BY MOUTH TWICE DAILY spironolactone 50 mg tablet 50 mg PO DAILY Qty: 90 1RF pantoprazole 40 mg tablet,delayed release (DR/EC) See Rx Instructions .ROUTE .COMPLEX Qty: 90 3RF Dose Instruction: TAKE ONE TABLET BY MOUTH EVERY DAY Rx Instructions: TAKE ONE TABLET BY MOUTH EVERY DAY lamotrigine [Lamictal] 25 mg tablet 25 mg PO BID Qty: 60 2RF Rx Instructions: Take with Lamictal 150 mg bid. If you develop a rash, stop the medication and call the clinic. atorvastatin 80 mg tablet 80 mg PO HS potassium chloride 10 mEq tablet extended release 10 meq PO DAILY Patient Comments: TAKE ONE TABLET BY MOUTH EVERY DAY nitroglycerin 0.4 mg tablet, sublingual 0.4 mg sublingual Q5MINP PRN (Reason: Chest Pain) dutasteride 0.5 mg capsule 0.5 mg PO DAILY Patient Comments: TAKE ONE CAPSULE BY MOUTH EVERY DAY cholecalciferol (vitamin D3) [Vitamin D3] 125 mcg (5,000 unit) Tablet 5,000 unit PO DAILY PreserVision AREDS-2 250-90-40-1 mg Capsule 1 cap PO BID lamotrigine 150 mg tablet 150 mg PO BID Patient Comments: TAKE ONE TABLET BY MOUTH TWICE DAILY amlodipine 10 mg tablet 10 mg PO DAILY Rx Instructions: TAKE ONE TABLET BY MOUTH EVERY DAY furosemide 40 mg tablet 80 mg PO DAILY Rx Instructions: TAKE TWO TABLETS BY MOUTH EVERY DAY aspirin 81 mg Tablet,Delayed Release (Dr/Ec) 81 mg PO DAILY ipratropium-albuterol 0.5 mg-3 mg(2.5 mg base)/3 mL Solution For Nebulization 3 ml inhalation Q6H PRN (Reason: shortness of breath or wheezing) 30 Days Qty: 180 0RF methocarbamol 750 mg tablet 750 mg PO TID Qty: 90 2RF Referrals Follow up/Referrals: Jennifer Newton APRN [Primary Care Provider, Medical] - See instructions Activity Restrictions/Add. Instructions Additional Instructions/Restrictions: Please follow up with your urologist regarding post-operative evaluation and care. If you experience recurrent belly pain or inability to drain urine from the catheter please return. Clinical Impressions Clinical Impression: Complication, blocked Cavanaugh catheter Qualifiers: Encounter type: initial encounter Qualified Code(s): T83.091A - Other mechanical complication of indwelling urethral catheter, initial encounter Print Language Print Language: Welsh Discharge ED Provider: Pedro Luis Flores General Adult HPI General Chief complaint: Urogenital-Male Stated complaint: Cath leaking-procedure done Time Seen by Provider: 03/29/25 07:52 History of Present Illness HPI narrative: This is a 64-year-old male patient, with past medical history of hypertension, hyperlipidemia, CAD status post coronary stent, COPD, and BPH, who is presenting to the emergency department today for evaluation of a Cavanaugh catheter malfunction. The patient states that he underwent a transurethral resection of the prostate yesterday at [facility]. Following the procedure he was discharged home. At that time his catheter was draining properly. He states that last night he went to sleep at around 11 PM and when he woke up this morning the same amount of urine was in the bag and he was experiencing severe suprapubic abdominal pain. He has not had any fevers or chills. No flank pain. He has not noticed any blood from the Cavanaugh catheter. Related Data Home Medications ?Medication ?Instructions ?Recorded ?Confirmed albuterol sulfate 90 mcg/actuation 2 puff inhalation QIDP PRN 10/27/18 03/26/25 aerosol inhaler Shortness Of Breath 25 days #9 grams tamsulosin 0.4 mg capsule 0.4 mg PO HS 90 days #90 caps 10/27/18 03/26/25 folic acid 1 mg tablet 1 mg PO DAILY 10/26/22 03/26/25 methotrexate sodium 2.5 mg tablet 20 mg PO WEEKLY 10/26/22 03/26/25 atorvastatin 80 mg tablet 80 mg PO HS 03/12/24 03/26/25 nitroglycerin 0.4 mg sublingual 0.4 mg sublingual Q5MINP PRN Chest 03/12/24 03/26/25 tablet Pain potassium chloride 10 mEq 10 meq PO DAILY 03/12/24 03/26/25 tablet,extended release cholecalciferol (vitamin D3) 125 5,000 unit PO DAILY 04/17/24 03/26/25 mcg (5,000 unit) tablet (Vitamin D3) dutasteride 0.5 mg capsule 0.5 mg PO DAILY 04/17/24 03/26/25 lamotrigine 150 mg tablet 150 mg PO BID 04/17/24 03/26/25 vit C 250 mg-vit E 90 mg-zinc 40 1 cap PO BID 04/17/24 03/26/25 mg-copper 1 [id number] capsule (PreserVision AREDS-2) aspirin 81 mg tablet,delayed 81 mg PO DAILY 07/13/24 03/26/25 release furosemide 40 mg tablet 80 mg PO DAILY 07/13/24 03/26/25 gabapentin 600 mg tablet 600 mg PO TID 10/23/24 03/26/25 amlodipine 10 mg tablet 10 mg PO DAILY 12/19/24 03/26/25 aiqduo-oyainstg-ublgqgi 1 cap PO QID 03/26/25 03/26/25 36,000-114,000-180,000 unit capsule,delay rel (Creon) methylcellulose (with sugar) oral 1 tbsp PO DAILY 03/26/25 03/26/25 powder (Citrucel (sucrose) oral powder) multivitamin 1 tab PO DAILY 03/26/25 03/26/25 polyethylene glycol 3350 17 17 g PO DAILY 03/26/25 03/26/25 gram/dose oral powder (Miralax) Previous Rx's ?Medication ?Instructions ?Recorded ipratropium 0.5 mg-albuterol 3 mg 3 ml inhalation Q6H PRN shortness 07/15/24 (2.5 mg base)/3 mL nebulization of breath or wheezing 30 days #180 soln mL clopidogrel 75 mg tablet See Rx Instructions .Route 10/16/24 .COMPLEX #90 tabs ranolazine 1,000 mg See Rx Instructions .Route 11/20/24 tablet,extended release,12 hr .COMPLEX #180 tabs isosorbide mononitrate 60 mg 90 mg (1.5 x 60 mg) PO BID 30 days 11/29/24 tablet,extended release 24 hr #90 tabs trazodone 100 mg tablet 100 - 150 mg (1 - 1.5 x 100 mg) PO 12/15/24 DAILY #45 tabs spironolactone 50 mg tablet 50 mg PO DAILY #90 tabs 12/19/24 pantoprazole 40 mg tablet,delayed See Rx Instructions .Route 01/08/25 release .COMPLEX #90 tabs methocarbamol 750 mg tablet 750 mg PO TID #90 tabs 01/17/25 metoprolol succinate 100 mg 150 mg (1.5 x 100 mg) PO BID 30 02/21/25 tablet,extended release 24 hr days #90 tabs lamotrigine 25 mg tablet (Lamictal) 25 mg PO BID #60 tabs 03/11/25 varenicline tartrate 0.5 mg (11)-1 See Rx Instructions PO PER PKG DIR 03/22/25 mg (42) tablets in a dose pack #53 tabs (Chantix Starting Month Box) varenicline tartrate 1 mg tablet 1 mg PO BID #56 tabs 03/22/25 (Chantix Continuing Month Box) Allergies Allergy/AdvReac Type Severity Reaction Status Date / Time nickel (NICKEL) Allergy Unknown I-RASH Verified 03/26/25 10:10 quetiapine (From SEROQUEL) Allergy Unknown I-RASH Verified 03/26/25 10:10 mirtazapine AdvReac Intermediate Hallucinati Verified 03/26/25 10:10 ng NSAIDS (Non-Steroidal AdvReac Other Verified 03/26/25 10:10 Anti-Inflamma PFSH COUNTS INCLUDE 234 BEDS AT THE [facility] Disclaimer: The information contained in this section may have been updated after the patient was seen, as this information can be updated by other users. Medical History Lymphedema Incontinence BLADDER Enlarged prostate Anxiety Coronary artery sclerosis History of COVID-19 Irritable bowel syndrome (IBS) Paraseptal emphysema Typical angina Snoring Daytime somnolence Fatigue Atypical pneumonia Pulmonary emphysema Smoking greater than 30 pack years History of rheumatoid arthritis Acute and chronic respiratory failure with hypoxia Viral pneumonia Grief SOBOE (shortness of breath on exertion) Acute on chronic heart failure with preserved ejection fraction (HFpEF) Deviated nasal septum Macular degeneration CHF (congestive heart failure) COPD exacerbation COPD (chronic obstructive pulmonary disease) Major depressive disorder Callus Abnormal nuclear cardiac imaging test Angina pectoris Hypertension Hyperlipidemia Abnormal result of cardiovascular function study Tachycardia Unstable angina Dizziness GERD (gastroesophageal reflux disease) Abnormal cardiovascular stress test Typical angina Tobacco dependence syndrome Abnormal EKG CAD (coronary artery disease) Edema Dyspnea Chest pain Surgical History H/O neck surgery 2 PLATES, 4 SCREWS History of hernia surgery Two reported operations H/O removal of cyst History of cardiac cath Reported total of 10 stents placed H/O heart artery stent Reported total of 10 stents placed History of coronary artery stent placement Family History Other Cancer Heart disease Hypertension Melanoma Social History Smoking Status: Current some day smoker tobacco type: cigarettes packs per day: 1 and pipe alcohol intake: current alcohol intake frequency: a few times a month substance use type: former substance user and marijuana counseling given: No (patient refused) counseling provided: none current occupational status: other Travel in the last 8 weeks?: None household members: children housing: house marital status: care home: No caffeine: Yes physical activity: none Have you lived/traveled outside US in past 30 days?: No Contact w/someone who lives/traveled outside US past 30 days?: No Exposure to someone with infectious disease in past 14 days?: No Do you have a fever (greater than 100.4 F or 38 C)?: No Have you tested positive for COVID-19?: No Exposed to someone with COVID-19 in past 14 days?: No Do you have a sore throat?: No Do you have a cough?: No Do you have any weakness?: No Do you have any diarrhea?: No Are you experiencing any unusual bleeding?: No Do you have any muscle aches/pain?: No Do you have any abdominal pain?: No Are you experiencing loss of taste or smell?: No Other Medical History Have you received the Flu Vaccine for this season: Yes Have you received the Pneumonia Vaccine: Yes ROS Obtained: Yes Systems reviewed as appropriate & no additional complaints except as documented Physical Exam General General appearance: other (See MDM) Respiratory Respiratory exam: Present other (See MDM) Cardiovascular Cardiovascular exam: Present other (See MDM) Neurological Exam Neurological exam: Present other (See MDM) Medical Decision Making Medical Records Medical records reviewed: Yes I reviewed the patient's medical records. Screening: Per USPSTF and CDC recommendations, given the prevalence of disease in our region, it is our hospital?s policy to screen for HIV and viral Hepatitis for all patients aged 18 and over and those with ongoing risk factors. Tk Inquiry Pt receiving controlled substance: No Tk was queried for this patient: No Vital Signs: 03/29/25 07:57 03/29/25 08:01 03/29/25 08:11 Temperature 98.1 F Temperature Source Oral Pulse Rate 62 53 L Pulse Rate [Left Radial] 64 Respiratory Rate 20 18 Blood Pressure 120/71 110/64 Blood Pressure [Right Arm] 120/71 Blood Pressure Mean [Right Arm] 87 Blood Pressure Source Automatic Cuff 02 Sat by Pulse Oximetry 96 98 96 Oxygen Delivery Method Room Air Room Air 03/29/25 08:31 03/29/25 09:01 03/29/25 09:31 Temperature Temperature Source Pulse Rate 61 52 L 48 L Pulse Rate [Left Radial] Respiratory Rate Blood Pressure 110/65 102/65 L 118/69 Blood Pressure [Right Arm] Blood Pressure Mean [Right Arm] Blood Pressure Source 02 Sat by Pulse Oximetry 96 92 L 95 Oxygen Delivery Method Lab Data Lab Results 03/29/25 08:10: WBC 17.0 H, RBC 3.60 L, Hgb 13.1 L, Hct 37.8 L, MCV 105.0 H, MCH 36.4 H, MCHC 34.7, RDW 13.3, Plt Count 277, MPV 8.8, Neut % (Auto) 87.7 H, Lymph % (Auto) 4.6 L, [place] % (Auto) 6.8, Eos % (Auto) 0.1, Baso % (Auto) 0.1, Neut # (Auto) 14.9 H, Lymph # (Auto) 0.8, [place] # (Auto) 1.2 H, Eos # (Auto) 0.0, Baso # (Auto) 0.0, Sodium 135 L, Potassium 4.5, Chloride 105, Carbon Dioxide 24, Anion Gap 10.5, BUN 17, Creatinine 1.00, Estimated Creat Clear 75, Estimated GFR 75, Est GFR ( Amer) 90, Glucose 117 H, Calcium 9.5, Total Bilirubin 0.7, AST 37, ALT 21, Alkaline Phosphatase 71, Total Protein 7.3, Albumin 4.5, Globulin 2.8, Albumin/Globulin Ratio 1.6 03/29/25 08:30: Urine Color Yellow, Urine Appearance Clear, Urine pH 6.0, Ur Specific [place] 1.010, Urine Protein Trace, Urine Glucose (UA) Negative, Urine Ketones Negative, Urine Blood 3+ A, Urine Nitrate Negative, Urine Bilirubin Negative, Urine Urobilinogen 0.2, Ur Leukocyte Esterase 1+ A, Urine RBC 20-50, Urine WBC 3-5, Ur Squamous Epith Cells Occasional, Urine Bacteria Trace 03/29/25 08:10 03/29/25 08:10 Orders (Tests/Meds): ED MEDICATIONS Discontinued Medications Generic Name Dose Route Start Last Admin Trade Name Agnes PRN Reason Stop Dose Admin Albuterol/Ipratropium 9 ml 03/29/25 08:56 03/29/25 09:02 Ipratropium/Albuterol 3 Ml Neb IH 03/29/25 08:57 9 ml ONCE ONE Administration Morphine Sulfate 4 mg 03/29/25 08:05 03/29/25 08:22 Morphine 4mg/Ml Syringe IV 03/29/25 08:06 4 mg ONCE ONE Administration Ondansetron HCl 4 mg 03/29/25 08:05 03/29/25 08:21 Ondansetron 4mg/2ml Vial IV 03/29/25 08:06 4 mg ONCE ONE Administration ORDERS Category Date Time Status CBC w/Auto Diff [Complete Blood Count Auto Diff] Stat Lab 03/29/25 08:10 Completed CMP [Comprehensive Metabolic Panel] Stat Lab 03/29/25 08:10 Completed Urinalysis and Microscopic Stat Lab 03/29/25 08:30 Completed Urine Culture Stat Micro 03/29/25 08:30 Received Medical Decision Narrative: In summary, this is a 64-year-old male patient who is presenting to the emergency department today for evaluation of a Cavanaugh catheter obstruction. Patient states that his catheter has not drained since 11 PM last night and he is experiencing severe suprapubic abdominal pain. Comorbidities do include a history of hypertension, hyperlipidemia, CAD, COPD, and benign prostatic hyperplasia. On initial evaluation of the patient they were resting comfortably in no acute distress and nontoxic in appearance. They are hemodynamically stable, saturating well room air, and are neurologically intact. On physical examination the patient does have significant suprapubic abdominal tenderness to palpation. No obvious peritonitis. My suspicion is that he is experiencing urinary retention. Otherwise he has chronic lower extremity edema. He also has a wheezing appreciated on his lung exam but he states that this is chronic and he has not taken his daily inhalers this morning. Differential diagnosis includes Cavanaugh catheter obstruction, postrenal DEAN, urinary tract infection, among others. Workup was initiated with hematologic labs. We also have performed a bladder scan showing greater than 500 mL of urinary retention. Labs personally interpreted by me demonstrate no actionable or maladies. Patient's leukocytosis of 17, however he did recently undergo surgery so I do not feel that this is unusual. Urinalysis demonstrated leukocyte esterase as well as white cells. Patient is currently on antibiotics that was provided by his urologist prophylactically after his surgery yesterday. He will follow-up culture sensitivities. We did have the nursing staff flush the patient's Cavanaugh catheter. There was sediment present that was obstructing the Cavanaugh catheter. 2 L drained out successfully. Patient had rapid resolution of symptoms as well as a decrease in his blood pressure. Patient did request that we provide DuoNebs to him given that he has not had his breathing treatments morning. We did provide 3 DuoNebs and on repeat reassessment he is resting comfortably and is in no acute distress. I have instructed the patient to follow-up with his urologist for postoperative evaluation. I have also given him return precautions in the event that he experiences recurrent obstruction of the Cavanaugh catheter or suprapubic pain. At this time all questions have been answered and all parties are agreeable with the decision to discharge home. Critical Care Critical Care Time Critical Care Time: No
[2025-03-29] MEDS: ONDANSETRON 4MG/2ML VIAL 4 MG IV (08:21)
[2025-03-29] MEDS: MORPHINE 4MG/ML SYRINGE 4 MG IV (08:22)
[2025-03-29 08:31] LABS: Chloride 105 mmol/L (98-107)
[2025-03-29 08:32] LABS: Albumin Level 4.5 g/dl (3.5-5.0); Potassium 4.5 mmoL/L (3.5-5.1); Sodium 135 mmol/L (136-145)
[2025-03-29 08:34] LABS: Blood Urea Nitrogen 17 mg/dl (9-20); Creatinine Clearance Estimated 75 mL/min (50-200); Creatinine,Serum 1.00 mg/dl (0.66-1.25); Estimated Glomerular Filt Rate 75 ml/min (>60); GFR (African American) 90 ML/MIN (>60)
[2025-03-29 08:35] LABS: Alanine Aminotransferase 21 U/L (12-78); Albumin/Globulin Ratio 1.6 (1.1-1.8); Alkaline Phosphatase 71 U/L (38-126); Anion Gap 10.5 mEq/L (5-15); Aspartate Amino Transferase 37 U/L (17-59); Bilirubin,Total 0.7 mg/dl (0.2-1.3); Calcium 9.5 mg/dl (8.4-10.2); Carbon Dioxide 24 mmol/L (22.0-30.0); Globulin 2.8 g/dL (1.3-3.2); Glucose 117 mg/dl (74-100); Total Protein,Serum 7.3 g/dl (6.3-8.2)
[2025-03-29 08:39] LABS: Microscopic, Urine URINE MICROSCOPIC (MICROSCOPIC)
--- NOTE | 2025-03-29 08:40 | PC.NURSE ---
after flushing patient catheter with sterile water it drained well and post void residual was 0, approx 2L of urine was emptied from briones bag, pt notes much more comfort
[2025-03-29 08:43] LABS: Bilirubin,Urine Negative (Negative); Color,Urine YELLOW (Yellow); Glucose,Urine (UA) Negative (Negative); Ketones,Urine Negative (Negative); Leukocyte Esterase,Urine 1+ (Negative); PH,Urine 6.0 (5.0-8.5); Protein,Urine TRACE (Negative); Specific Gravity, Urine 1.010 (1.005-1.030); Urobilinogen,Urine 0.2 EU/dl (0.2)
[2025-03-29 08:44] LABS: White Blood Count 17.0 K/mm3 (4.8-10.8)
[2025-03-29 08:45] LABS: Hematocrit 37.8 % (42.0-52.0); Hemoglobin 13.1 g/dL (14.1-18.0); Immature Granulocytes % 0.7 %; Mean Corpuscular HGB Conc 34.7 g/dL (31.8-35.4); Mean Corpuscular Hemoglobin 36.4 pg (27.0-31.2); Mean Corpuscular Volume 105.0 fl (80-94); Nucleated Red Blood Cells % 0 %; Platelet Count 277 K/mm3 (142-424); Red Blood Count 3.60 M/mm3 (4.60-6.20); Red Cell Distribution Width-SD 51.0 fL
[2025-03-29] MEDS: IPRATROPIUM/ALBUTEROL 3 ML NEB 9 ML IH (09:02)
[2025-03-29 09:56] LABS: Bacteria,Urine Trace /lpf; RBC,Urine 20-50 #/hpf (0-3); Squamous Epithelial Cell,Urine Occasional #/hpf (0-5)
== END 2025-03-29 10:32 | disposition home or self-care (01) ==
PROVIDERS: Emergency Provider Student in an Organized Health Care Education/Training Program; PCP Nurse Practitioner Family
DX: T83.091A Other mechanical complication of indwelling urethral catheter, initial encounter (principal); E78.5 Hyperlipidemia, unspecified; I10 Essential (primary) hypertension
CPT/HCPCS: 51798; 80053; 81001; 85025; 87086; 96374; 96375; 99284; J2270; J2405

== ENCOUNTER 2025-03-31 21:25 | Emergency (ER) | payer MEDICARE, SELFPAY ==
[2025-03-31 21:33] VITALS: BP 132/71; PULSE 73; RESP 16; TEMP 36.6; O2SAT 93; BMI 40.6
--- OUTSIDE RECORDS SUMMARY | 2025-03-31 21:37 | XMS_ITS | Encounter Summary ---
Author Organization Healthcare Address [address] [place] [address] Care Team Providers Care Machine Bookkeeper Name Role Phone Savage Reardon MD Primary Care Provider Clayton James MD Unavailable [phone] Encounter Details Date Type Department Care Team (Late st Contact Info) Description 02/09/2025 Refill [place] [facility] [address] [place] [address] Gris Sylvester PA [address] [place] [address] Degeneration of intervertebral disc of [...] documented as of this encounter Care Teams Machine Bookkeeper Relationship Specialty Start Date End Date Savage Reardon MD [address] [place] [address] PCP - General 12/13/20 Clayton James MD [address] [place] [address] Surgeon Neurosurgery 09/22/24 documented as of this encounter
--- OUTSIDE RECORDS SUMMARY | 2025-03-31 21:37 | XMS_ITS ---
Author Organization [facility] Address [address] [place] [address] Care Team Providers Care Entertainment Dancer Name Role Phone Jennifer Newton APRN Primary Care Provid er Rheumatology - External Fill Status:Enrolled (Active) Start date:01/16/2025 Enrollment date:01/16/2025 Enrollment reason:Identified as being on target medication Current support & services provided:Benefits Investigation, External Pharmacy Dispensing Linked medications:Adalimumab (Active) Linked problems:Seropositive rheumatoid arthritis (Active) Overview Maddi KAUFFMAN approved through 08.01.25 Continued Care and Services Coordination
--- OUTSIDE RECORDS SUMMARY | 2025-03-31 21:37 | XMS_ITS | Encounter Summary ---
[facility] Address [address] [place] [address] Care Team Providers Care Director General Name Role Phone Jennifer Newton APRN Primary Care Provid er Reason for Visit * Reason Comments Med Refill Encounter Details Date Type Department Care Team (Late st Contact Info) Description 03/10/2025 Refill [facility] [address] [address] Damien Csome, [address] [place] [id number] Social History Tobacco Use Types Packs/Day Years [...] Description 05/14/2025 2:30 PM EDT Office Visit [facility] [address] [facility] [address] [facility] [address] [place] [id number] Valeria Machuca APRN [address] [facility] [address] [place] [address] documented as of this encounter Goals Goal Patient Goal Type Associated Problems Recent Progress Patient-Stated? Author Specialty Pharmacy General Goal General No Alvin Maier, JonatanD Note: Reduce number of flares and pain score. documented as of this encounter Visit Diagnoses Not on filedocumented in this encounter Care Teams Director General Relationship Specialty Start Date End Date Jennifer Newton APRN [address] [facility] [address] [facility] [address] PCP - General Family Medicine 03/20/24 documented as of this encounter
--- OUTSIDE RECORDS SUMMARY | 2025-03-31 21:37 | XMS_ITS | Encounter Summary ---
Author Organization Healthcare Address [address] [place] [address] Care Team Providers Care Sex Crimes Detective Name Role Phone Savage Reardon MD Primary Care Provider [phone] Clayton James MD Unavailable [phone] Reason for Visit * Reason Comments Med Refill Encounter Details Date Type Department Care Team (Late st Contact Info) Description 03/21/2025 Refill [place] [facility] [address] [place] [address] Clayton James MD [address] [place] [address] Degeneration of intervertebral disc of [...] documented as of this encounter Care Teams Sex Crimes Detective Relationship Specialty Start Date End Date Savage Reardon MD [address] [place] [address] PCP - General 12/13/20 Clayton James MD [address] [place] [address] Surgeon Neurosurgery 09/22/24 documented as of this encounter
--- OUTSIDE RECORDS SUMMARY | 2025-03-31 21:38 | XMS_ITS | Encounter Summary ---
Author Organization Healthcare Address [address] [place] [address] Care Team Providers Care Icu Nurse Name Role Phone Savage Reardon MD Primary Care Provider [phone] Clayton James MD Unavailable [phone] Encounter Details Date Type Department Care Team (Late st Contact Info) Description 05/04/2024 Orders Only External Location [address] [place] [address] Savage Reardon MD [address] [place] [address] Social History Tobacco Use Types [...] on filedocumented in this encounter Care Teams Icu Nurse Relationship Specialty Start Date End Date Savage Reardon MD [address] [place] [address] PCP - General 12/13/20 Clayton James MD [address] [place] [address] Surgeon Neurosurgery 09/22/24 documented as of this encounter
--- OUTSIDE RECORDS SUMMARY | 2025-03-31 21:38 | XMS_ITS | Encounter Summary ---
Author Organization Healthcare Address [address] [place] [address] Care Team Providers Care Caterer Helper Name Role Phone Savage Reardon MD Primary Care Provider [phone] Clyaton James MD Unavailable [phone] Reason for Visit * Reason Comments Med Refill Encounter Details Date Type Department Care Team (Late st Contact Info) Description 12/12/2024 Refill [place] [facility] [address] [place] [address] Clayton James MD [address] [place] [address] Degeneration of intervertebral disc of [...] verbalized understanding. * Telephone Encounter - Gris Sylvestre PA - 12/12/2024 8:12 AM EDT Tk request #: [id number] reviewed and appropriate. Refill sent to the [...] documented as of this encounter Care Teams Caterer Helper Relationship Specialty Start Date End Date Savage Reardon MD [address] [place] [address] PCP - General 12/13/20 Clayton James MD [address] [place] [address] Surgeon Neurosurgery 09/22/24 documented as of this encounter
--- OUTSIDE RECORDS SUMMARY | 2025-03-31 21:38 | XMS_ITS | Encounter Summary ---
Author Organization Healthcare Address [address] [place] [address] Care Team Providers Care Sql Analyst Name Role Phone Savage Reardon MD Primary Care Provider [phone] Clayton James MD Unavailable [phone] Reason for Visit * Reason Comments Med Refill Encounter Details Date Type Department Care Team (Late st Contact Info) Description 11/19/2024 Refill [place] [facility] [address], [address] [place] [address] Clayton James MD [address] [place] [address] Degeneration of intervertebral disc of [...] documented as of this encounter Care Teams Sql Analyst Relationship Specialty Start Date End Date Savage Reardon MD [address] [place] [address] PCP - General 12/13/20 Clayton James MD [address] [place] [address] Surgeon Neurosurgery 09/22/24 documented as of this encounter
--- OUTSIDE RECORDS SUMMARY | 2025-03-31 21:38 | XMS_ITS | Encounter Summary ---
Author Organization Healthcare Address [address] [place] [address] Care Team Providers Care Cafeteria Server Name Role Phone Savage Reardon MD Primary Care Provider [phone] Clayton James MD Unavailable [phone] Reason for Visit * Reason Comments Med Refill Encounter Details Date Type Department Care Team (Late st Contact Info) Description 02/09/2025 Refill [place] [facility] [address] [place] [address] Daniel Grajeda MD [address] [place] [address] Degeneration of intervertebral disc of [...] documented as of this encounter Care Teams Cafeteria Server Relationship Specialty Start Date End Date Savage Reardon MD [address] [place] [address] PCP - General 12/13/20 Clayton James MD [address] [place] [address] Surgeon Neurosurgery 09/22/24 documented as of this encounter
--- OUTSIDE RECORDS SUMMARY | 2025-03-31 21:38 | XMS_ITS | Encounter Summary ---
[facility] Address [address] [place] [address] Care Team Providers Care Malted Milk Mixer Name Role Phone Jennifer Newton APRN Primary Care Provid er Encounter Details Date Type Department Care Team (Late st Contact Info) Description 01/15/2025 Results Follow-Up [facility] 330 [facility] [address] [place] [address] Valeria Machuca APRN 330 [facility] [address] [place] [address] Social History Tobacco Use Types [...] Description 05/14/2025 2:30 PM EDT Office Visit [facility] 330 [facility] [address] [place] [phone] Valeria Machuca APRN 330 [facility] [address] [place] [address] documented as of this encounter Goals Goal Patient Goal Type Associated Problems Recent Progress Patient-Stated? Author Specialty Pharmacy General Goal General No Alvin Maier, PharmD Note: Reduce number of flares and pain score. documented as of this encounter Visit Diagnoses Not on filedocumented in this encounter Care Teams Malted Milk Mixer Relationship Specialty Start Date End Date Jennifer Newton APRN [address] [facility] [address] [facility] [address] [place] [address] PCP - General Family Medicine 03/20/24 documented as of this encounter
--- OUTSIDE RECORDS SUMMARY | 2025-03-31 21:38 | XMS_ITS | Clinical Summary ---
Author Organization [facility] Address [address] [place] [address] Care Team Providers Care Glazing Superintendent Name Role Phone Savage Reardon MD Primary Care Provider [phone] Clayton James MD Unavailable [phone] Allergies Active Allergy Reactions Criticality Noted [...] Type Department Care Team Description 03/21/2025 Refill [place] [address], [address] [place] [phone] Clayton James MD Degeneration of intervertebral disc of lumbar region with discogenic back pain and lower extremity pain; Chronic bilateral low back pain with right-sided sciatica 02/09/2025 Refill [facility] [address] [place] [address] Gris Sylvester PA Degeneration of intervertebral disc of lumbar region with discogenic back pain and lower extremity pain (Primary Dx); Chronic bilateral low back pain with right-sided sciatica 02/09/2025 Refill [facility] [address] [place] [phone] Daniel Grajeda MD Degeneration of intervertebral disc [...] 2008 UKY-Zoster Vaccines (1 of 2) 2008 KMO-KBVHI-12 Vaccine (1 - 20 24-25 season) 2024 [...] this topic Insurance [employer] Care Teams Glazing Superintendent Relationship Specialty Start Date End Date Savage Reardon MD [address] [place] [address] PCP - General 12/13/20 Clayton James MD [address] [place] [address] Surgeon Neurosurgery 09/22/24
--- OUTSIDE RECORDS SUMMARY | 2025-03-31 21:38 | XMS_ITS | Encounter Summary ---
[facility] Address [address] [place] [address] Care Team Providers Care Trust Administrator Name Role Phone Jennifer Newton APRN Primary Care Provid er Reason for Visit * Reason Comments Med Refill Encounter Details Date Type Department Care Team (Late st Contact Info) Description 03/30/2025 Refill [facility] RHE[facility] 330 [facility] 100 [place] [address] Damien Cosme, [address] [place] [id number] High risk medication use Social History Tobacco Use Types Packs/Day Years [...] AM EST documented as of this encounter Miscellaneous Notes * Telephone Encounter - Adrienne Sam MA - 03/30/2025 1:01 PM EDT Rx Refill Note Requested Prescriptions Pending Prescriptions Disp Refills methotrexate 2.5 MG tablet [Pharmacy Med Name: methotrexate sodium 2.5 mg tablet] 40 tablet 5 Sig: TAKE EIGHT TABLETS BY MOUTH one time PER WEEK Last office visit with prescribing clinician: 09/13/2024 Last telemedicine visit with prescribing clinician: Visit date not found Next office visit with prescribing clinician: Visit date not found { Adrienne Sam MA 03/30/25, 13:01 EDT Please advise: Antimetabolites Protocol Failed documented in this encounter Plan of Treatment Upcoming Encounters Date Type Department Care Team (Late st Contact Info) Description 05/14/2025 2:30 PM EDT Office Visit [facility] [address] [facility] [address] [place] [phone] Valeria Machuca APRN 330 [facility] [address] [place] [address] documented as of this encounter Goals Goal Patient Goal Type Associated Problems Recent Progress Patient-Stated? Author Specialty Pharmacy General Goal General No Alvni Maier, [place]rata Note: Reduce number of flares and pain score. documented as of this encounter Visit Diagnoses Diagnosis High risk medication use documented in this encounter Care Teams Trust Administrator Relationship Specialty Start Date End Date Jennifer Newton APRN 12[address] [facility] [address] [place] [address] PCP - General Family Medicine 03/20/24 documented as of this encounter
--- OUTSIDE RECORDS SUMMARY | 2025-03-31 21:38 | XMS_ITS | Clinical Summary ---
Author Organization [facility] Address [address] [place] [address] Care Team Providers Care Mixer Attendant Name Role Phone Jennifer Newton APRN Primary [...] Every 12 (Twelve) Hours. 04/17/20 24 Active Adalimumab (Humira, 2 Pen,) 40 MG/0.4ML [...] mETHOTREXATE 30 tablet 5 03/12/20 25 Active methotrexate 2.5 MG tabletIndicati ons:High risk medication use Take 8 tablets by mouth 1 (One) Time Per Week. 40 tablet 3 03/30/20 25 Active folic acid (FOLVITE) 1 MG tablet Take 2 tablets by mouth Daily. EXCEPT THE DAY YOU TAKE MTX 30 tablet 5 09/13/19 25 025 Discontinued methotrexate 2.5 MG tabletIndicati ons:High risk medication use Take 8 tablets by mouth 1 (One) Time Per Week. 40 tablet 5 09/13/19 25 025 Discontinued methotrexate 2.5 MG tabletIndicati ons:High risk medication use TAKE EIGHT TABLETS BY MOUTH one time PER WEEK 40 tablet 5 03/30/20 25 025 Discontinued Active Problems Problem Noted [...] normal, DS DNA normal, Ribosomal P normal, PERFORMANCE REPORTER normal, SCL 70 normal, Morrow normal, SSA [...] normal, DS DNA normal, Ribosomal P normal, PERFORMANCE REPORTER normal, SCL 70 normal, Morrow normal, SSA [...] normal, DS DNA normal, Ribosomal P normal, PERFORMANCE REPORTER normal, SCL 70 normal, Morrow normal, SSA [...] Encounters Date Type Department Care Team Description 03/30/2025 Refill [facility] RHEUMATOLOGY [address] [phone] Damien Cosme DO High risk medication use 03/10/2025 Refill [facility] RHEUMATOLOGY [address] [phone] Damien Cosme DO 01/15/2025 Results Follow-Up [facility] RHEUMATOLOGY [address] [address] Valeria Machuca APRN 01/12/2025 2:30 PM EDT Office Visit [facility] RHEUMATOLOGY [address] [address] Valeria Machuca APRN Seropositive rheumatoid arthritis (Primary [...] Description 05/14/2025 2:30 PM EDT Office Visit [facility]UM[facility] [address] [facility] [address] [place] [address] Valeria Machuca APRN 330 [facility] [address] [place] [address] Health Maintenance Due Date Last Done [...] 2) 03/29/2024 02/02/2024 COVID-19 Vaccine (3 - season) 2024, 01/11/2021 INFLUENZA VACCINE 05/02/2025 05/16/2024, [...] (ABNORMAL) Sedimentation Rate (01/12/2025 3:20 PM EDT) Sed Rate 36(H) 0 - 30 mm/hr [facility] Blood 01/12/2025 3:20 PM EDT 01/12/2025 Narrative [facility] (AMBULATORY) - 01/13/2025 9:07 AM EDT Performed at: - [address] [id number] Flying Squad Worker: Uziel Lundy PhD, Phone: [phone] Patient Fasting: Y Valeria Machuca APRN LAB BLOOD ORDERABLES Final Result [facility] (AMBULATORY) [address] [id number], [facility] [address] [place] [address], * (ABNORMAL) CBC (No Diff) (01/12/2025 3:20 PM EDT) Pathologist [facility] WBC 12.0(H) 3.4 - 10.8 x10E3/uL [facility] [...] 01/12/2025 3:20 PM EDT 01/12/2025 Narrative [facility] (AMBULATORY) - 01/13/2025 9:07 AM EDT Performed at: [address] [id number] Flying Squad Worker: Uziel Lundy PhD, Phone: [phone] Patient Fasting: Y Valeria Machuca APRN LAB BLOOD ORDERABLES Final Result [facility] [address] [place] [address], [place] [phone] [facility] [address] [place] [address], [place] [phone] * C-reactive Protein (01/12/2025 3:20 PM EDT) C-Reactive Protein 5 0 - 10 mg/L [facility] Blood 01/12/2025 3:20 PM EDT 01/12/2025 Narrative [facility] ([facility]) - 01/13/2025 9:07 AM EDT Performed at: [address] [id number] Flying Squad Worker: Uziel Lundy PhD, Phone: [phone] Patient Fasting: Y Valeria Machuca APRN LAB BLOOD ORDERABLES Final Result [facility] (AMBULATORY) [address] [place] [address], [place] [phone] [facility] [address] [place] [address], [place] [phone] * Comprehensive Metabolic Panel (01/12/2025 3:20 PM EDT) Glucose 88 70 - 99 mg/dL [facility] [...] 01/12/2025 3:20 PM EDT 01/12/2025 Narrative [facility] (AMBULATORY) - 01/13/2025 9:07 AM EDT Performed at: 01 - [address] [id number] Flying Squad Worker: Uziel Lundy PhD, Phone: [phone] Patient Fasting: Y us Valeria Machuca APRN LAB BLOOD ORDERABLES Final Result [facility] (AMBULATORY) [address] [place] [address], [facility] [address] [place] [address], * Hepatitis Panel, Acute (09/15/2024 2:32 PM EST) Hepatitis B Surface Ag Non-Reacti ve Non-Reacti ve 09/15/2024 11:42 PM EST [facility] Hep A IgM Non-Reacti ve Non-Reacti ve 09/15/2024 11:42 PM EST [facility] Hep B C IgM Non-Reacti ve Non-Reacti ve 09/15/2024 11:42 PM EST [facility] Hepatitis C Ab Non-Reacti ve Non-Reacti ve 09/15/2024 11:42 PM EST [facility] Blood Venipuncture / Unknown 09/15/2024 2:32 PM EST 09/15/2024 2:33 PM EST Narrative [facility] - 09/15/2024 11:42 PM EST Results may be falsely decreased if patient taking Biotin. Damien Cosme DO LAB BLOOD ORDERABLES F inal Result [facility]
[address] [place] [address], from Last 3 Months or Most Recently Relevant to Health Maintenance Insurance [facility] [facility] MED[employer]AGE HMO Care Teams Mixer Attendant Relationship Specialty Start Date End Date Jennifer Newton APRN [address] [facility] [address] [place] [address] PCP - General Family Medicine 03/20/24
--- NOTE | 2025-03-31 22:09 | HMH.EDGENADL ---
Discharge Plan Disposition Patient Disposition: Home, Self-Care Prescriptions Prescriptions: No Action gabapentin 600 mg tablet 600 mg PO TID Patient Comments: TAKE ONE TABLET BY MOUTH THREE TIMES DAILY MAY CAUSE DROWSINESS multivitamin Tablet 1 tab PO DAILY polyethylene glycol 3350 [Miralax] 17 gram/dose powder 17 g PO DAILY Citrucel (sucrose) Powder 1 tbsp PO DAILY Creon 36,000-114,000- 180,000 unit capsule,delayed release(DR/EC) 1 cap PO QID Rx Instructions: administer with meals and/or snacks metoprolol succinate 100 mg tablet extended release 24 hr 150 mg PO BID 30 Days Qty: 90 2RF varenicline tartrate [Chantix Starting Month Box] 0.5 mg (11)- 1 mg (42) tablets,dose pack See Rx Instructions PO PER PKG DIR Qty: 53 0RF Rx Instructions: PO PER PKG DIR varenicline tartrate [Chantix Continuing Month Box] 1 mg tablet 1 mg PO BID Qty: 56 4RF tamsulosin 0.4 mg capsule 0.4 mg PO HS 90 Days Qty: 90 albuterol sulfate 90 mcg/actuation HFA aerosol inhaler 2 puff INHALATION QIDP PRN (Reason: Shortness Of Breath) 25 Days Qty: 9 Patient Comments: INHALE 2 PUFFS BY MOUTH FOUR TIMES DAILY * SHAKE WELL BEFORE USE * methotrexate sodium 2.5 mg tablet 20 mg PO WEEKLY Rx Instructions: PATIENT TAKES 8 TABLETS BY MOUTH ONCE WEEKLY ON WEDNESDAY folic acid 1 mg tablet 1 mg PO DAILY Patient Comments: TAKE ONE TABLET BY MOUTH EVERY DAY EXCEPT FOR THE DAY you take methotrexate Rx Instructions: Patient takes 6 days a week. trazodone 100 mg tablet 100 - 150 mg PO DAILY Qty: 45 2RF isosorbide mononitrate 60 mg tablet extended release 24 hr 90 mg PO BID 30 Days Qty: 90 2RF cariprazine [Vraylar] 1.5 mg capsule 1.5 mg PO DIRECTED 0RF clopidogrel 75 mg tablet See Rx Instructions .ROUTE .COMPLEX Qty: 90 3RF Dose Instruction: TAKE ONE TABLET BY MOUTH EVERY DAY Rx Instructions: TAKE ONE TABLET BY MOUTH EVERY DAY ranolazine 1,000 mg tablet extended release 12 hr See Rx Instructions .ROUTE .COMPLEX Qty: 180 3RF Dose Instruction: TAKE ONE TABLET BY MOUTH TWICE DAILY Rx Instructions: TAKE ONE TABLET BY MOUTH TWICE DAILY spironolactone 50 mg tablet 50 mg PO DAILY Qty: 90 1RF pantoprazole 40 mg tablet,delayed release (DR/EC) See Rx Instructions .ROUTE .COMPLEX Qty: 90 3RF Dose Instruction: TAKE ONE TABLET BY MOUTH EVERY DAY Rx Instructions: TAKE ONE TABLET BY MOUTH EVERY DAY lamotrigine [Lamictal] 25 mg tablet 25 mg PO BID Qty: 60 2RF Rx Instructions: Take with Lamictal 150 mg bid. If you develop a rash, stop the medication and call the clinic. budesonide-formoterol 160-4.5 mcg/actuation HFA aerosol inhaler 2 puff inhalation BID 90 Days Qty: 10.2 2RF atorvastatin 80 mg tablet 80 mg PO HS potassium chloride 10 mEq tablet extended release 10 meq PO DAILY Patient Comments: TAKE ONE TABLET BY MOUTH EVERY DAY nitroglycerin 0.4 mg tablet, sublingual 0.4 mg sublingual Q5MINP PRN (Reason: Chest Pain) dutasteride 0.5 mg capsule 0.5 mg PO DAILY Patient Comments: TAKE ONE CAPSULE BY MOUTH EVERY DAY cholecalciferol (vitamin D3) [Vitamin D3] 125 mcg (5,000 unit) Tablet 5,000 unit PO DAILY PreserVision AREDS-2 250-90-40-1 mg Capsule 1 cap PO BID lamotrigine 150 mg tablet 150 mg PO BID Patient Comments: TAKE ONE TABLET BY MOUTH TWICE DAILY amlodipine 10 mg tablet 10 mg PO DAILY Rx Instructions: TAKE ONE TABLET BY MOUTH EVERY DAY furosemide 40 mg tablet 80 mg PO DAILY Rx Instructions: TAKE TWO TABLETS BY MOUTH EVERY DAY aspirin 81 mg Tablet,Delayed Release (Dr/Ec) 81 mg PO DAILY ipratropium-albuterol 0.5 mg-3 mg(2.5 mg base)/3 mL Solution For Nebulization 3 ml inhalation Q6H PRN (Reason: shortness of breath or wheezing) 30 Days Qty: 180 0RF methocarbamol 750 mg tablet 750 mg PO TID Qty: 90 2RF Referrals Follow up/Referrals: Jennifer Newton APRN [Primary Care Provider, Medical] - See instructions Activity Restrictions/Add. Instructions Additional Instructions/Restrictions: I encourage you to follow-up with your urologist on Wednesday as scheduled to have the Briones catheter removed. He will likely have a little bit of blood in your urine secondary to the procedure. If you have a lot of blood, clots, or if your catheter stops draining or leaking around the penis, return to the emergency department for evaluation. Clinical Impressions Clinical Impression: Hematuria Instructions Patient Instructions: DI for Urinary Tract Infection (UTI), DI for Urinary Tract Infection in Children Print Language Print Language: Puerto Rican Discharge ED Provider: Mik Vasquez General Adult HPI General Chief complaint: Urogenital-Male Stated complaint: Has F/C with bloody urine Time Seen by Provider: 03/31/25 21:34 Mode of Arrival: Ambulatory Source of Information: Patient Description of Symptoms (Recalled from ER Triage Doc. by RN): Pt presents with c/o hematuria that was noticed today with worsening as the day has went on. Pt reports recent prostate procedure x4 days ago at [place] with briones cath placed post op. Pt reports associated bladder pain with somewhat decreased output noticed today. Pt denies blood thinner use, denies fevers. History of Present Illness HPI narrative: Abe Maharaj is a 64y male with a past medical history of coronary artery disease, irritable syndrome, s/p TURP on 03/28/2025 in [place] by urologist Dr. Sosa who presents to the emergency department for concern for hematuria in his Briones catheter. Patient states that he has had orange to red urine in his Briones catheter since early this afternoon. He was told after the surgery that he may have some spotting of blood and a particulate in his urine but was not sure how much was acceptable. He states that today, he also has some increased lower abdominal pain. He states that his catheter seems to be draining appropriately. He states that he is not currently on a blood thinner but is set to start again in 3 days. Related Data Home Medications ?Medication ?Instructions ?Recorded ?Confirmed albuterol sulfate 90 mcg/actuation 2 puff inhalation QIDP PRN 10/27/18 03/26/25 aerosol inhaler Shortness Of Breath 25 days #9 grams tamsulosin 0.4 mg capsule 0.4 mg PO HS 90 days #90 caps 10/27/18 03/26/25 folic acid 1 mg tablet 1 mg PO DAILY 10/26/22 03/26/25 methotrexate sodium 2.5 mg tablet 20 mg PO WEEKLY 10/26/22 03/26/25 atorvastatin 80 mg tablet 80 mg PO HS 03/12/24 03/26/25 nitroglycerin 0.4 mg sublingual 0.4 mg sublingual Q5MINP PRN Chest 03/12/24 03/26/25 tablet Pain potassium chloride 10 mEq 10 meq PO DAILY 03/12/24 03/26/25 tablet,extended release cholecalciferol (vitamin D3) 125 5,000 unit PO DAILY 04/17/24 03/26/25 mcg (5,000 unit) tablet (Vitamin D3) dutasteride 0.5 mg capsule 0.5 mg PO DAILY 04/17/24 03/26/25 lamotrigine 150 mg tablet 150 mg PO BID 04/17/24 03/26/25 vit C 250 mg-vit E 90 mg-zinc 40 1 cap PO BID 04/17/24 03/26/25 mg-copper 1 [id number] capsule (PreserVision AREDS-2) aspirin 81 mg tablet,delayed 81 mg PO DAILY 07/13/24 03/26/25 release furosemide 40 mg tablet 80 mg PO DAILY 07/13/24 03/26/25 gabapentin 600 mg tablet 600 mg PO TID 10/23/24 03/26/25 amlodipine 10 mg tablet 10 mg PO DAILY 12/19/24 03/26/25 msezan-[id number]-yjsnuhm 1 cap PO QID 03/26/25 03/26/25 36,000-114,000-180,000 unit capsule,delay rel (Creon) methylcellulose (with sugar) oral 1 tbsp PO DAILY 03/26/25 03/26/25 powder (Citrucel (sucrose) oral powder) multivitamin 1 tab PO DAILY 03/26/25 03/26/25 polyethylene glycol 3350 17 17 g PO DAILY 03/26/25 03/26/25 gram/dose oral powder (Miralax) Previous Rx's ?Medication ?Instructions ?Recorded ipratropium 0.5 mg-albuterol 3 mg 3 ml inhalation Q6H PRN shortness 07/15/24 (2.5 mg base)/3 mL nebulization of breath or wheezing 30 days #180 soln mL clopidogrel 75 mg tablet See Rx Instructions .Route 10/16/24 .COMPLEX #90 tabs ranolazine 1,000 mg See Rx Instructions .Route 11/20/24 tablet,extended release,12 hr .COMPLEX #180 tabs isosorbide mononitrate 60 mg 90 mg (1.5 x 60 mg) PO BID 30 days 11/29/24 tablet,extended release 24 hr #90 tabs trazodone 100 mg tablet 100 - 150 mg (1 - 1.5 x 100 mg) PO 12/15/24 DAILY #45 tabs spironolactone 50 mg tablet 50 mg PO DAILY #90 tabs 12/19/24 pantoprazole 40 mg tablet,delayed See Rx Instructions .Route 01/08/25 release .COMPLEX #90 tabs methocarbamol 750 mg tablet 750 mg PO TID #90 tabs 01/17/25 metoprolol succinate 100 mg 150 mg (1.5 x 100 mg) PO BID 30 02/21/25 tablet,extended release 24 hr days #90 tabs lamotrigine 25 mg tablet (Lamictal) 25 mg PO BID #60 tabs 03/11/25 varenicline tartrate 0.5 mg (11)-1 See Rx Instructions PO PER PKG DIR 03/22/25 mg (42) tablets in a dose pack #53 tabs (Chantix Starting Month Box) varenicline tartrate 1 mg tablet 1 mg PO BID #56 tabs 03/22/25 (Chantix Continuing Month Box) budesonide-formoterol HFA 160 2 puff inhalation BID 90 days 03/29/25 mcg-4.5 mcg/actuation aerosol #10.2 grams inhaler Allergies Allergy/AdvReac Type Severity Reaction Status Date / Time nickel (NICKEL) Allergy Unknown I-RASH Verified 03/26/25 10:10 quetiapine (From SEROQUEL) Allergy Unknown I-RASH Verified 03/26/25 10:10 mirtazapine AdvReac Intermediate Hallucinati Verified 03/26/25 10:10 ng NSAIDS (Non-Steroidal AdvReac Other Verified 03/26/25 10:10 Anti-Inflamma PFSH PFSH Disclaimer: The information contained in this section may have been updated after the patient was seen, as this information can be updated by other users. Medical History Lymphedema Incontinence BLADDER Enlarged prostate Anxiety Coronary artery sclerosis History of COVID-19 Irritable bowel syndrome (IBS) Paraseptal emphysema Typical angina Snoring Daytime somnolence Fatigue Atypical pneumonia Pulmonary emphysema Smoking greater than 30 pack years History of rheumatoid arthritis Acute and chronic respiratory failure with hypoxia Viral pneumonia Grief SOBOE (shortness of breath on exertion) Acute on chronic heart failure with preserved ejection fraction (HFpEF) Deviated nasal septum Macular degeneration CHF (congestive heart failure) COPD exacerbation COPD (chronic obstructive pulmonary disease) Major depressive disorder Callus Abnormal nuclear cardiac imaging test Angina pectoris Hypertension Hyperlipidemia Abnormal result of cardiovascular function study Tachycardia Unstable angina Dizziness GERD (gastroesophageal reflux disease) Abnormal cardiovascular stress test Typical angina Tobacco dependence syndrome Abnormal EKG CAD (coronary artery disease) Edema Dyspnea Chest pain Surgical History H/O neck surgery 2 PLATES, 4 SCREWS History of hernia surgery Two reported operations H/O removal of cyst History of cardiac cath Reported total of 10 stents placed H/O heart artery stent Reported total of 10 stents placed History of coronary artery stent placement Family History Other Cancer Heart disease Hypertension Melanoma Social History Smoking Status: Never smoker alcohol intake: current alcohol intake frequency: a few times a month substance use type: former substance user and marijuana counseling given: No (patient refused) counseling provided: none current occupational status: other Travel in the last 8 weeks?: None household members: children housing: house marital status: chcf: No caffeine: Yes physical activity: none Have you lived/traveled outside US in past 30 days?: No Contact w/someone who lives/traveled outside US past 30 days?: No Exposure to someone with infectious disease in past 14 days?: No Do you have a fever (greater than 100.4 F or 38 C)?: No Have you tested positive for COVID-19?: No Exposed to someone with COVID-19 in past 14 days?: No Do you have a sore throat?: No Do you have a cough?: No Do you have any weakness?: No Do you have any diarrhea?: No Are you experiencing any unusual bleeding?: No Do you have any muscle aches/pain?: No Do you have any abdominal pain?: No Are you experiencing loss of taste or smell?: No Other Medical History Have you received the Flu Vaccine for this season: Yes Have you received the Pneumonia Vaccine: Yes ROS Obtained: Yes Systems reviewed as appropriate & no additional complaints except as documented Physical Exam General General appearance: alert, in no apparent distress and obese Head Head exam: atraumatic Eye Eye exam: Present normal appearance ENT ENT exam: Present normal external ear exam Neck Neck exam: Present full ROM Chest Chest inspection: Present symmetric chest wall rise Respiratory Respiratory exam: Present normal lung sounds bilaterally; Absent respiratory distress Cardiovascular Cardiovascular exam: Present regular rate and normal rhythm Abdominal Exam Abdominal exam: Present soft; Absent distention, tenderness or guarding exam: Present deferred and other (briones catheter in place with pink/red urine within briones bag and catheter) Extremities Exam Extremities exam: Present normal inspection Back Exam Back exam: Present normal inspection Neurological Exam Neurological exam: Present alert and oriented X3 Psychiatric Psychiatric exam: Present normal affect Skin Skin exam: Present warm and dry Medical Decision Making Medical Records Screening: Per USPSTF and CDC recommendations, given the prevalence of disease in our region, it is our hospital?s policy to screen for HIV and viral Hepatitis for all patients aged 18 and over and those with ongoing risk factors. Tk Inquiry Pt receiving controlled substance: No Vital Signs: 03/31/25 21:33 03/31/25 22:53 Temperature 97.9 F 97.9 F Temperature Source Oral Oral Pulse Rate 77 Pulse Rate [Radial] 73 Respiratory Rate 16 17 Blood Pressure 127/54 L Blood Pressure [Right Arm] 132/71 Blood Pressure Mean [Right Arm] 91 Blood Pressure Source Automatic Cuff Blood Pressure Position Sitting Blood Pressure Position [Right Arm] Sitting 02 Sat by Pulse Oximetry 93 L Oxygen Delivery Method Room Air Room Air Medical Decision Narrative: Abe Maharaj is a 64y male with a past medical history of coronary artery disease, irritable syndrome, s/p TURP on 03/28/2025 in [place] by urologist Dr. Sosa who presents to the emergency department for concern for hematuria in his Briones catheter. Patient states that he has had orange to red urine in his Briones catheter since early this afternoon. He was told after the surgery that he may have some spotting of blood and a particulate in his urine but was not sure how much was acceptable. He states that today, he also has some increased lower abdominal pain. He states that his catheter seems to be draining appropriately. He states that he is not currently on a blood thinner but is set to start again in 3 days. On arrival, patient is hemodynamically stable, in no acute distress, breathing comfortably, afebrile. Physical exam, as stated above, revealed an overall well appearing male. He is complaining of some mid lower abdominal discomfort but has no tenderness of distension on abdominal exam. His briones catheter is anchored in place with red/pink urine within the tubing and Briones bag. A bedside bladder scan revealed no significant amount of urine within the urinary bladder. Attempts were made to irrigate the Briones, and it flushed well, however no fluid could be returned. Given concern for obstruction, likely from a blood clot, as the source of these issues, the patient's catheter was replaced and a blood clot was flushed through. After this, the patient's urine was clear and he had relief of his symptoms. Given this, it is felt that no additional workup is indicated at this time. patient states that he has follow up with his urologist on 04/03/25, to have the Briones removed. Patient was encouraged to attend this appointment but to return to the ED if he has any additional concerns or complications. All questions were answered. He demonstrated understanding and was in agreement with this plan. he was then discharged from the ED in stable condition. Critical Care Critical Care Time Critical Care Time: No
--- NOTE | 2025-03-31 22:48 | PC.NURSE ---
Pt old briones removed, replaced with a 20 F/ 3 way / 10ml balloon. pink tinged urine in new bag. Pt states bladder spasms have stopped.
[2025-03-31 22:53] VITALS: BP 127/54; PULSE 77; RESP 17; TEMP 36.6; O2SAT 98
== END 2025-03-31 22:58 | disposition home or self-care (01) ==
PROVIDERS: Emergency Provider Student in an Organized Health Care Education/Training Program; PCP Nurse Practitioner Family
DX: R31.9 Hematuria, unspecified (principal)
CPT/HCPCS: 51702; 99283

== ENCOUNTER 2025-04-01 15:49 | Emergency (ER) | payer MEDICARE, SELFPAY ==
--- OUTSIDE RECORDS SUMMARY | 2025-04-01 15:57 | XMS_ITS | Encounter Summary ---
Author Organization Healthcare Address [address] [place] [address] Care Team Providers Care Material Specialist Name Role Phone Savage Reardon MD Primary Care Provider [phone] Clayton James MD Unavailable [phone] Reason for Visit * Reason Comments Med Refill Encounter Details Date Type Department Care Team (Late st Contact Info) Description 03/21/2025 Refill [place] [facility] [address], [address] [place] [address] Clayton James MD [address] [place] [address] Degeneration of intervertebral disc of [...] documented as of this encounter Care Teams Material Specialist Relationship Specialty Start Date End Date Savage Reardon MD [address] [place] [address] PCP - General 12/13/20 Clayton James MD [address] [place] [address] Surgeon Neurosurgery 09/22/24 documented as of this encounter
--- OUTSIDE RECORDS SUMMARY | 2025-04-01 15:57 | XMS_ITS | Encounter Summary ---
[facility] [address] [place] [address] Care Team Providers Care Primary Substance Abuse Counselor Name Role Phone Jennifer Newton APRN Primary Care Provid er Reason for Visit * Reason Comments Med Refill Encounter Details Date Type Department Care Team (Late st Contact Info) Description 03/10/[address] [facility] [address] [address] Damien Cosme, [address] [place] [phone] Social History Tobacco Use Types Packs/Day Years [...] Visit [facility] [address] [facility] [address] [place] [id number] Valeria Machuca APRN [address] [facility] [address] [place] [address] documented as of this encounter Goals Goal Patient Goal Type Associated Problems Recent Progress Patient-Stated? Author Specialty Pharmacy General Goal General No Alvin Maier, JonatanD Note: Reduce number of flares and pain score. documented as of this encounter Visit Diagnoses Not on filedocumented in this encounter Care Teams Primary Substance Abuse Counselor Relationship Specialty Start Date End Date Jennifer Newton APRN [address] [facility] [address] [place] [place] [address] PCP - General Family Medicine 03/20/24 documented as of this encounter
--- OUTSIDE RECORDS SUMMARY | 2025-04-01 15:57 | XMS_ITS | Encounter Summary ---
Author Organization Healthcare Address [address] [place] [address] Care Team Providers Care Balance Wheel Screw Hole Tapper Name Role Phone Savage Reardon MD Primary Care Provider Clayton James MD Unavailable [phone] Encounter Details Date Type Department Care Team (Late st Contact Info) Description 02/09/2025 Refill [place] [facility] [address] [place] [address] Gris Sylvester PA [address] [place] [address] Degeneration of intervertebral disc of [...] documented as of this encounter Care Teams Balance Wheel Screw Hole Tapper Relationship Specialty Start Date End Date Savage Reardon MD [address] [place] [address] PCP - General 12/13/20 Clayton James MD [address] [place] [address] Surgeon Neurosurgery 09/22/24 documented as of this encounter
--- OUTSIDE RECORDS SUMMARY | 2025-04-01 15:57 | XMS_ITS ---
Author Organization [facility] Address [address] [place] [address] Care Team Providers Care Embroidery Machine Operator Name Role Phone Jennifer Newton APRN Primary Care Provid er Rheumatology - External Fill Status:Enrolled (Active) Start date:01/16/2025 Enrollment date:01/16/2025 Enrollment reason:Identified as being on target medication Current support & services provided:Benefits Investigation, External Pharmacy Dispensing Linked medications:Adalimumab (Active) Linked problems:Seropositive rheumatoid arthritis (Active) Overview Maddi KAUFFMAN approved through 08.01.25 Continued Care and Services Coordination
--- OUTSIDE RECORDS SUMMARY | 2025-04-01 15:57 | XMS_ITS | Encounter Summary ---
[facility] [address] [place] [address] Care Team Providers Care Burr Bench Operator Name Role Phone Jennifer Newton APRN Primary Care Provid er Reason for Visit * Reason Comments Med Refill Encounter Details Date Type Department Care Team (Late st Contact Info) Description 03/30/2025 Refill [facility] [address] [facility] [address] [place] [address] Damien Cosme, [address] [place] [phone] High risk medication use Social History Tobacco [...] Description 05/14/2025 2:30 PM EDT Office Visit [facility] [address] [facility] [address] [place] [phone] Valeria Machuca APRN [address] [facility] [address] [place] [address] documented as of this encounter Goals Goal Patient Goal Type Associated Problems Recent Progress Patient-Stated? Author Specialty Pharmacy General Goal General No Alvin Maier, Namrata Note: Reduce number of flares and pain score. documented as of this encounter Visit Diagnoses Diagnosis High risk medication use documented in this encounter Care Teams Burr Bench Operator Relationship Specialty Start Date End Date Jennifer Newton APRN [address] [facility] [address] [place] [address] PCP - General Family Medicine 03/20/24 documented as of this encounter
--- OUTSIDE RECORDS SUMMARY | 2025-04-01 15:57 | XMS_ITS | Encounter Summary ---
Author Organization Healthcare Address [address] [place] [address] Care Team Providers Care Paint Maker Name Role Phone Savage Reardon MD Primary Care Provider Clayton James MD Unavailable [phone] Encounter Details Date Type Department Care Team (Late st Contact Info) Description 05/04/2024 Orders Only External Location [address] [place] [address] Savage Reardon MD [address] [place] [address] Social History Tobacco Use Types [...] on filedocumented in this encounter Care Teams Paint Maker Relationship Specialty Start Date End Date Savage Reardon MD [address] [place] [address] PCP - General 12/13/20 Clayton James MD [address] [place] [address] Surgeon Neurosurgery 09/22/24 documented as of this encounter
--- OUTSIDE RECORDS SUMMARY | 2025-04-01 15:58 | XMS_ITS | Clinical Summary ---
Author Organization [facility] Address [address] [place] [address] Care Team Providers Care Art Sales Consultant Name Role Phone Jennifer Newton APRN [...] normal, DS DNA normal, Ribosomal P normal, TILE SHADER normal, SCL 70 normal, Morrow normal, SSA [...] normal, DS DNA normal, Ribosomal P normal, TILE SHADER normal, SCL 70 normal, Morrow normal, SSA [...] normal, DS DNA normal, Ribosomal P normal, TILE SHADER normal, SCL 70 normal, Morrow normal, SSA [...] Type Department Care Team Description 03/30/2025 Refill [facility] [address] [phone] Damien Cosme DO High risk medication use 03/10/2025 Refill [facility] [address] [phone] Damien Cosme DO 01/15/2025 Results Follow-Up [facility] [address] [address] Valeria Machuca APRN 01/12/2025 2:30 PM EDT Office Visit [facility] [address] [address] Valeria Machuca APRN Seropositive rheumatoid arthritis (Primary [...] Description 05/14/2025 2:30 PM EDT Office Visit [facility] [address] [facility] [address] [place] [address] Valeria Machuca APRN 330 [facility] [address] [place] [address] Health Maintenance Due Date Last [...] 01/12/2025 3:20 PM EDT 01/12/2025 Narrative [facility] (AMBULATORY) - 01/13/2025 9:07 AM EDT Performed at: - Lab[address] [id number] Greige Goods Examiner: Uziel Lundy PhD, Phone: [phone] Patient Fasting: Y Valeria Machuca APRN LAB BLOOD ORDERABLES Final Result [facility] (AMBULATORY) [address] [id number], [facility] [address] [place] [address], * (ABNORMAL) CBC (No Diff) (01/12/2025 3:20 PM EDT) Pathologist [facility] [place] WBC 12.0(H) 3.4 - 10.8 x10E3/uL [facility] [...] 01/12/2025 3:20 PM EDT 01/12/2025 Narrative [facility] (AMBULATORY) - 01/13/2025 9:07 AM EDT Performed at: [address] [id number] Greige Goods Examiner: Uziel Lundy PhD, Phone: [phone] Patient Fasting: Y Valeria Machuca APRN LAB BLOOD ORDERABLES Final Result [facility] (AMBULATORY) [address] [place] [address], [place] [phone] [facility] [address] [place] [address], [place] [phone] * C-reactive Protein (01/12/2025 3:20 PM EDT) C-Reactive Protein 5 0 - 10 mg/L [facility] Blood 01/12/2025 3:20 PM EDT 01/12/2025 Narrative [facility] (AMBULATORY) - 01/13/2025 9:07 AM EDT Performed at: [address] [id number] Greige Goods Examiner: Uziel Lundy PhD, Phone: [phone] Patient Fasting: Y Valeria Machuca APRN LAB BLOOD ORDERABLES Final Result [facility] (AMBULATORY) [address] [place] [address], [place] [phone] [facility] [address] [place] [address], [place] [phone] * Comprehensive Metabolic Panel (01/12/2025 3:20 PM [...] 01/12/2025 3:20 PM EDT 01/12/2025 Narrative [facility] (AMBULATORY) - 01/13/2025 9:07 AM EDT Performed at: 01 - [address] [id number] Greige Goods Examiner: Uziel Lundy PhD, Phone: [phone] Patient Fasting: Y us Valeria Machuca APRN LAB BLOOD ORDERABLES Final Result [facility] (AMBULATORY) [address] [place] [address], [facility] [address] [place] [address], * Hepatitis Panel, Acute (09/15/2024 2:32 PM EST) Hepatitis B Surface Ag Non-Reacti ve Non-Reacti ve 09/15/2024 11:42 PM EST [facility] Hep A IgM Non-Reacti ve Non-Reacti ve 09/15/2024 11:42 PM EST [facility] Hep B C IgM Non-Reacti ve Non-Reacti ve 09/15/2024 11:42 PM EST [facility] Hepatitis C Ab Non-Reacti ve Non-Reacti ve 09/15/2024 11:42 PM EST [facility] Blood Venipuncture / Unknown 09/15/2024 2:32 PM EST 09/15/2024 2:33 PM EST Narrative [facility] - 09/15/2024 11:42 PM EST Results may be falsely decreased if patient taking Biotin. Damien Cosme DO LAB BLOOD ORDERABLES F inal Result [facility]
[address] [place] [address], from Last 3 Months or Most Recently Relevant to Health Maintenance Insurance [employer] HMO Care Teams Art Sales Consultant Relationship Specialty Start Date End Date Jennifer Newton APRN [address] [facility] [address] [place] [address] PCP - General Family Medicine 03/20/24
--- OUTSIDE RECORDS SUMMARY | 2025-04-01 15:58 | XMS_ITS | Encounter Summary ---
Author Organization Healthcare Address [address] [place] [address] Care Team Providers Care Grass Farm Laborer Name Role Phone Savage Reardon MD Primary Care Provider [phone] Clayton James MD Unavailable [phone] Reason for Visit * Reason Comments Med Refill Encounter Details Date Type Department Care Team (Late st Contact Info) Description 02/09/2025 Refill [place] [facility] [address] [place] [address] Daniel Grajeda MD [address] [place] [address] Degeneration of intervertebral disc of [...] documented as of this encounter Care Teams Grass Farm Laborer Relationship Specialty Start Date End Date Savage Reardon MD [address] [place] [address] PCP - General 12/13/20 Clayton James MD [address] [place] [address] Surgeon Neurosurgery 09/22/24 documented as of this encounter
--- OUTSIDE RECORDS SUMMARY | 2025-04-01 15:58 | XMS_ITS | Encounter Summary ---
Author Organization [facility] Address [address] [place] [address] Care Team Providers Care Wharf Operator Name Role Phone Savage Reardon MD Primary Care Provider [phone] Clayton James MD Unavailable [phone] Reason for Visit * Reason Comments Med Refill Encounter Details Date Type Department Care Team (Late st Contact Info) Description 11/19/2024 Refill [place] [facility] [address] [place] [address] Clayton James MD [address] [place] [address] Degeneration of intervertebral disc of [...] documented as of this encounter Care Teams Wharf Operator Relationship Specialty Start Date End Date Savage Reardon MD [address] [place] [address] PCP - General 12/13/20 Clayton James MD [address] [place] [address] Surgeon Neurosurgery 09/22/24 documented as of this encounter
--- OUTSIDE RECORDS SUMMARY | 2025-04-01 15:58 | XMS_ITS | Encounter Summary ---
Author Organization Healthcare Address [address] [place] [address] Care Team Providers Care Pottery Striper Name Role Phone Savage Reardon MD Primary Care Provider [phone] Clayton James MD Unavailable [phone] Reason for Visit * Reason Comments Med Refill Encounter Details Date Type Department Care Team (Late st Contact Info) Description 12/12/2024 Refill [place] [facility] [address] [place] [address] Clayton James MD [address] [place] [address] Degeneration of intervertebral disc of [...] 12/12/2024 8:12 AM EDT Tk request #: [id number] reviewed and appropriate. Refill sent to the [...] documented as of this encounter Care Teams Pottery Striper Relationship Specialty Start Date End Date Savage Reardon MD [address] [place] [address] PCP - General 12/13/20 Clayton James MD [address] [place] [address] Surgeon Neurosurgery 09/22/24 documented as of this encounter
--- OUTSIDE RECORDS SUMMARY | 2025-04-01 15:58 | XMS_ITS | Encounter Summary ---
Author Organization [facility] Address [address] [place] [address] Care Team Providers Care Dozer Operator Name Role Phone Jennifer Newton APRN Primary Care Provid er Encounter Details Date Type Department Care Team (Late st Contact Info) Description 01/15/2025 Results Follow-Up [facility] 330 [facility] [address] [place] [address] Valeria Machuca APRN 330 [facility] [address] [place] [address] Social History Tobacco Use Types [...] Description 05/14/2025 2:30 PM EDT Office Visit [facility] 330 [facility] [address] [place] [phone] Valeria Machuca APRN [address] [facility] [address] [place] [address] documented as of this encounter Goals Goal Patient Goal Type Associated Problems Recent Progress Patient-Stated? Author Specialty Pharmacy General Goal General No Alvin Maier, PharmD Note: Reduce number of flares and pain score. documented as of this encounter Visit Diagnoses Not on filedocumented in this encounter Care Teams Dozer Operator Relationship Specialty Start Date End Date Jennifer Newton APRN [address] [facility] [address] [facility] [address] [place] [address] PCP - General Family Medicine 03/20/24 documented as of this encounter
--- OUTSIDE RECORDS SUMMARY | 2025-04-01 15:58 | XMS_ITS | Clinical Summary ---
Author Organization [facility] Address [address] [place] [address] Care Team Providers Care Manager Compliance Name Role Phone Savage Reardon MD Primary Care Provider [phone] Clayton James MD Unavailable [phone] Allergies Active Allergy Reactions Criticality Noted [...] Type Department Care Team Description 03/21/2025 Refill [place] [address], [address] [place] [phone] Clayton James MD Degeneration of intervertebral disc of lumbar region with discogenic back pain and lower extremity pain; Chronic bilateral low back pain with right-sided sciatica 02/09/2025 Refill [facility] [address] [place] [address] Gris Sylvester PA Degeneration of intervertebral disc of lumbar region with discogenic back pain and lower extremity pain (Primary Dx); Chronic bilateral low back pain with right-sided sciatica 02/09/2025 Refill [facility] [address] [place] [phone] Daniel Grajeda MD Degeneration of intervertebral disc [...] 2008 UKY-Zoster Vaccines (1 of 2) 2008 [id number] Vaccine (1 - 20 24-25 season) 2024 [...] this topic Insurance [employer] Care Teams Manager Compliance Relationship Specialty Start Date End Date Savage Reardon MD [address] [place] [address] PCP - General 12/13/20 Clayton James MD [address] [place] [address] Surgeon Neurosurgery 09/22/24
[2025-04-01 16:03] VITALS: BP 124/81; PULSE 62; RESP 17; TEMP 36.9; O2SAT 94; BMI 40.6
--- NOTE | 2025-04-01 16:06 | ED_ITS ---
<Statement entered by Lennie Ibanez DO - 04/01/25 23:25> I was consulted by the MERRY, and we discussed the complexity of problems being addressed. I approve the treatment and management plan for this patient's care in the emergency department, thus performing a substantial portion of the medical decision making. Lennie Ibanez DO Discharge Plan Disposition Patient Disposition: Home, Self-Care Condition: Good Prescriptions Prescriptions: No Action gabapentin 600 mg tablet 600 mg PO TID Patient Comments: TAKE ONE TABLET BY MOUTH THREE TIMES DAILY MAY CAUSE DROWSINESS multivitamin Tablet 1 tab PO DAILY polyethylene glycol 3350 [Miralax] 17 gram/dose powder 17 g PO DAILY Citrucel (sucrose) Powder 1 tbsp PO DAILY Creon 36,000-114,000- 180,000 unit capsule,delayed release(DR/EC) 1 cap PO QID Rx Instructions: administer with meals and/or snacks metoprolol succinate 100 mg tablet extended release 24 hr 150 mg PO BID 30 Days Qty: 90 2RF varenicline tartrate [Chantix Starting Month Box] 0.5 mg (11)- 1 mg (42) tablets,dose pack See Rx Instructions PO PER PKG DIR Qty: 53 0RF Rx Instructions: PO PER PKG DIR varenicline tartrate [Chantix Continuing Month Box] 1 mg tablet 1 mg PO BID Qty: 56 4RF tamsulosin 0.4 mg capsule 0.4 mg PO HS 90 Days Qty: 90 albuterol sulfate 90 mcg/actuation HFA aerosol inhaler 2 puff INHALATION QIDP PRN (Reason: Shortness Of Breath) 25 Days Qty: 9 Patient Comments: INHALE 2 PUFFS BY MOUTH FOUR TIMES DAILY * SHAKE WELL BEFORE USE * methotrexate sodium 2.5 mg tablet 20 mg PO WEEKLY Rx Instructions: PATIENT TAKES 8 TABLETS BY MOUTH ONCE WEEKLY ON WEDNESDAY folic acid 1 mg tablet 1 mg PO DAILY Patient Comments: TAKE ONE TABLET BY MOUTH EVERY DAY EXCEPT FOR THE DAY you take methotrexate Rx Instructions: Patient takes 6 days a week. trazodone 100 mg tablet 100 - 150 mg PO DAILY Qty: 45 2RF isosorbide mononitrate 60 mg tablet extended release 24 hr 90 mg PO BID 30 Days Qty: 90 2RF cariprazine [Vraylar] 1.5 mg capsule 1.5 mg PO DIRECTED 0RF clopidogrel 75 mg tablet See Rx Instructions .ROUTE .COMPLEX Qty: 90 3RF Dose Instruction: TAKE ONE TABLET BY MOUTH EVERY DAY Rx Instructions: TAKE ONE TABLET BY MOUTH EVERY DAY ranolazine 1,000 mg tablet extended release 12 hr See Rx Instructions .ROUTE .COMPLEX Qty: 180 3RF Dose Instruction: TAKE ONE TABLET BY MOUTH TWICE DAILY Rx Instructions: TAKE ONE TABLET BY MOUTH TWICE DAILY spironolactone 50 mg tablet 50 mg PO DAILY Qty: 90 1RF pantoprazole 40 mg tablet,delayed release (DR/EC) See Rx Instructions .ROUTE .COMPLEX Qty: 90 3RF Dose Instruction: TAKE ONE TABLET BY MOUTH EVERY DAY Rx Instructions: TAKE ONE TABLET BY MOUTH EVERY DAY lamotrigine [Lamictal] 25 mg tablet 25 mg PO BID Qty: 60 2RF Rx Instructions: Take with Lamictal 150 mg bid. If you develop a rash, stop the medication and call the clinic. budesonide-formoterol 160-4.5 mcg/actuation HFA aerosol inhaler 2 puff inhalation BID 90 Days Qty: 10.2 2RF atorvastatin 80 mg tablet 80 mg PO HS potassium chloride 10 mEq tablet extended release 10 meq PO DAILY Patient Comments: TAKE ONE TABLET BY MOUTH EVERY DAY nitroglycerin 0.4 mg tablet, sublingual 0.4 mg sublingual Q5MINP PRN (Reason: Chest Pain) dutasteride 0.5 mg capsule 0.5 mg PO DAILY Patient Comments: TAKE ONE CAPSULE BY MOUTH EVERY DAY cholecalciferol (vitamin D3) [Vitamin D3] 125 mcg (5,000 unit) Tablet 5,000 unit PO DAILY PreserVision AREDS-2 250-90-40-1 mg Capsule 1 cap PO BID lamotrigine 150 mg tablet 150 mg PO BID Patient Comments: TAKE ONE TABLET BY MOUTH TWICE DAILY amlodipine 10 mg tablet 10 mg PO DAILY Rx Instructions: TAKE ONE TABLET BY MOUTH EVERY DAY furosemide 40 mg tablet 80 mg PO DAILY Rx Instructions: TAKE TWO TABLETS BY MOUTH EVERY DAY aspirin 81 mg Tablet,Delayed Release (Dr/Ec) 81 mg PO DAILY ipratropium-albuterol 0.5 mg-3 mg(2.5 mg base)/3 mL Solution For Nebulization 3 ml inhalation Q6H PRN (Reason: shortness of breath or wheezing) 30 Days Qty: 180 0RF methocarbamol 750 mg tablet 750 mg PO TID Qty: 90 2RF Referrals Follow up/Referrals: Jennifer Newton APRN [Primary Care Provider, Medical] - See instructions Activity Restrictions/Add. Instructions Additional Instructions/Restrictions: Please return to the emergency department with any worsening signs or symptoms or any difficulties with your catheter. Please keep your follow-up with urologist in the upcoming days. Please continue take all medication as prescribed. Clinical Impressions Clinical Impression: Complication, blocked Cavanaugh catheter Qualifiers: Encounter type: initial encounter Qualified Code(s): T83.091A - Other mechanical complication of indwelling urethral catheter, initial encounter Instructions Patient Instructions: How to Care for Your Cavanaugh Catheter -- Male Print Language Print Language: Irish Discharge ED Provider: Lennie Ibanez General Adult HPI General Chief complaint: Urogenital-Male Stated complaint: cath is not flowing Time Seen by Provider: 04/01/25 15:52 Mode of Arrival: Ambulatory Source of Information: Patient Limitations: No Limitations History of Present Illness HPI narrative: 64-year-old male presents to the emergency department with Cavanaugh catheter malfunction, patient states his catheter is not flowing , patient states he has had no output from his catheter, since around 5 AM this morning, patient is experiencing lower abdominal pain and urge to urinate, patient was seen in the emergency department last night on 03/31/2025 for similar complaint, had multiple clots noted in his Cavanaugh catheter at that time, subsequently had a catheter placed/irrigated catheter was flowing and functioning appropriately. Patient is status post TURP on 03/28/2025 in [facility] by urologist Dr. Sosa he has follow-up slated for Wednesday, patient denies any fever chills chest pain shortness of breath nausea vomiting constipation diarrhea, no anticoagulants, set to start again in 3 days. Other past medical history is consistent with CAD, COPD, GERD, MDD, HFpEF, RA, hyperlipidemia, hypertension, degenerative disease lumbar spine, bipolar 2, IBS, initial triage vitals are unremarkable, unknown substance abuse/use history. Of note, hematuria has improved, patient does have some dark urine noted in his Cavanaugh catheter bag. Please note that above description of symptoms, in this electronic medical record under categorization of recalled from ER triage doctor by RN are reflec tive of an initial nursing assessment, however, is not reflective of my full history and physical exam that was personally taken and clarified. Consequentially, this preceding description of symptoms, which may include the patient's categorized chief complaint in the EMR, do not reflect my personal clinical impression, and the ultimate description of history of present illness and patient stated complaints should be deferred to this section of the note. Unless stated otherwise or congruent with this section of the note, additional signs, symptoms, or incongruence should be interpreted as inaccurate with my clinical impression. Onset (ago): hour(s) Related Data Home Medications ?Medication ?Instructions ?Recorded ?Confirmed albuterol sulfate 90 mcg/actuation 2 puff inhalation Q IDP PRN 10/27/18 03/26/25 aerosol inhaler Shortness Of Breath 25 days #9 grams tamsulosin 0.4 mg capsule 0.4 mg PO HS 90 days #90 cap s 10/27/18 03/26/25 folic acid 1 mg tablet 1 mg PO DAILY 10/26/2203/26 methotrexate sodium 2.5 mg tablet 20 mg PO WEEKLY 10/0103/26/25 atorvastatin 80 mg tablet 80 mg PO HS 03/12/24 5 nitroglycerin 0.4 mg sublingual 0.4 mg sublingual Q5MI CHIEF MATE PRN Chest 03/12/24 03/26/25 tablet Pain potassium chloride 10 mEq 10 meq PO DAILY 03/12/24 tablet,extended release cholecalciferol (vitamin D3) 125 5,000 unit PO DAILY 0 04/17/24 03/26/25 mcg (5,000 unit) tablet (Vitamin D3) dutasteride 0.5 mg capsule 0.5 mg PO DAILY 04/17/24 lamotrigine 150 mg tablet 150 mg PO BID 04/17/2403/26 vit C 250 mg-vit E 90 mg-zinc 40 1 cap PO BID 04/17/24 03/26/25 mg-copper 1 [id number] capsule (PreserVision AREDS-2) aspirin 81 mg tablet,delayed 81 mg PO DAILY 07/13/24 0 03/26/25 release furosemide 40 mg tablet 80 mg PO DAILY 07/13/2403/03 gabapentin 600 mg tablet 600 mg PO TID 10/23/2403/26 amlodipine 10 mg tablet 10 mg PO DAILY 12/19/2403/03 [id number] 1 cap PO QID 03/26/25 36,000-114,000-180,000 unit capsule,delay rel (Creon) methylcellulose (with sugar) oral 1 tbsp PO DAILY 03/0303/26/25 powder (Citrucel (sucrose) oral powder) multivitamin 1 tab PO DAILY 03/26/2503/03 polyethylene glycol 3350 17 17 g PO DAILY 03/26/25 gram/dose oral powder (Miralax) Previous Rx's ?Medication ?Instructions ?Recorded ipratropium 0.5 mg-albuterol 3 mg 3 ml inhalation Q6H PRN shortness 07/15/24 (2.5 mg base)/3 mL nebulization of breath or wheezing 30 days #180 soln mL clopidogrel 75 mg tablet See Rx Instructions .Route 0 10/16/24 .COMPLEX #90 tabs ranolazine 1,000 mg See Rx Instructions .Route 0 11/20/24 tablet,extended release,12 hr .COMPLEX #180 tabs isosorbide mononitrate 60 mg 90 mg (1.5 x 60 mg) PO BI D 30 days 11/29/24 tablet,extended release 24 hr #90 tabs trazodone 100 mg tablet 100 - 150 mg (1 - 1.5 x 100 mg) PO 12/15/24 DAILY #45 tabs spironolactone 50 mg tablet 50 mg PO DAILY #90 tabs pantoprazole 40 mg tablet,delayed See Rx Instructions .Route 01/08/25 release .COMPLEX #90 tabs methocarbamol 750 mg tablet 750 mg PO TID #90 tabs metoprolol succinate 100 mg 150 mg (1.5 x 100 mg) PO B ID 30 02/21/25 tablet,extended release 24 hr days #90 tabs lamotrigine 25 mg tablet (Lamictal) 25 mg PO BID #60 t abs 03/11/25 varenicline tartrate 0.5 mg (11)-1 See Rx Instructions PO PER PKG DIR 03/22/25 mg (42) tablets in a dose pack #53 tabs (Chantix Starting Month Box) varenicline tartrate 1 mg tablet 1 mg PO BID #56 tabs 03/22/25 (Chantix Continuing Month Box) budesonide-formoterol HFA 160 2 puff inhalation BID 90 days 03/29/25 mcg-4.5 mcg/actuation aerosol #10.2 grams inhaler Allergies Allergy/AdvReac Type Severity Reaction Status Date / Time nickel (NICKEL) Allergy Unknown I-RASH Verified 03/26/25 10:10 quetiapine (From SEROQUEL) Allergy Unknown I-RASH Verified 03/26/25 10:10 mirtazapine AdvReac Intermediate Hallucinati Verified 03/26/25 10:10 ng NSAIDS (Non-Steroidal AdvReac Other Verified 03/26/25 10:10 Anti-Inflamma PFSH PFS Disclaimer: The information contained in this section may have been updated after the patient was seen, as this information can be updated by other users. Medical History Lymphedema Incontinence BLADDER Enlarged prostate Anxiety Coronary artery sclerosis History of COVID-19 Irritable bowel syndrome (IBS) Paraseptal emphysema Typical angina Snoring Daytime somnolence Fatigue Atypical pneumonia Pulmonary emphysema Smoking greater than 30 pack years History of rheumatoid arthritis Acute and chronic respiratory failure with hypoxia Viral pneumonia Grief SOBOE (shortness of breath on exertion) Acute on chronic heart failure with preserved ejection fraction (HFpEF) Deviated nasal septum Macular degeneration CHF (congestive heart failure) COPD exacerbation COPD (chronic obstructive pulmonary disease) Major depressive disorder Callus Abnormal nuclear cardiac imaging test Angina pectoris Hypertension Hyperlipidemia Abnormal result of cardiovascular function study Tachycardia Unstable angina Dizziness GERD (gastroesophageal reflux disease) Abnormal cardiovascular stress test Typical angina Tobacco dependence syndrome Abnormal EKG CAD (coronary artery disease) Edema Dyspnea Chest pain Surgical History H/O neck surgery 2 PLATES, 4 SCREWS History of hernia surgery Two reported operations H/O removal of cyst History of cardiac cath Reported total of 10 stents placed H/O heart artery stent Reported total of 10 stents placed History of coronary artery stent placement Family History Other Cancer Heart disease Hypertension Melanoma Social History Smoking Status: Current every day smoker tobacco type: cigarettes packs per day: 1 and pipe alcohol intake: current alcohol intake frequency: a few times a month substance use type: former substance user and marijuana counseling given: No (patient refused) counseling provided: none current occupational status: other Travel in the last 8 weeks?: None household members: children housing: house marital status: group home: No caffeine: Yes physical activity: none Have you lived/traveled outside [place] in past 30 days?: No Contact w/someone who lives/traveled outside [place] past 30 days?: No Exposure to someone with infectious disease in past 14 days?: No Do you have a fever (greater than 100.4 F or 38 C)?: No Have you tested positive for COVID-19?: No Exposed to someone with COVID-19 in past 14 days?: No Do you have a sore throat?: No Do you have a cough?: No Do you have any weakness?: No Do you have any diarrhea?: No Are you experiencing any unusual bleeding?: No Do you have any muscle aches/pain?: No Do you have any abdominal pain?: No Are you experiencing loss of taste or smell?: No Other Medical History Have you received the Flu Vaccine for this season: Yes Have you received the Pneumonia Vaccine: Yes ROS Obtained: Yes All systems reviewed & no additional complaints except as documented Physical Exam General General appearance: alert and in no apparent distress Head Head exam: atraumatic and normocephalic Eye Eye exam: Present PERRL and EOMI ENT ENT exam: Present mucous membranes moist Neck Neck exam: Present normal inspection Chest Chest inspection: Present normal inspection and symmetric chest wall rise Respiratory Respiratory exam: Present normal lung sounds bilaterally; Absent respiratory distress Cardiovascular Cardiovascular exam: Present regular rate and normal rhythm Abdominal Exam Abdominal exam: Present soft and tenderness Abdominal tenderness: Present suprapubic Comment: Minimal suprapubic tenderness to palpation Extremities Exam Extremities exam: Present normal inspection Neurological Exam Neurological exam: Present alert and oriented X3 Psychiatric Psychiatric exam: Present normal affect Skin Skin exam: Present warm and dry Medical Decision Making Medical Records Medical records reviewed: Yes I reviewed the patient's medical records. Screening: Per USPSTF and CDC recommendations, given the prevalence of disease in our region, it is our hospital?s policy to screen for HIV and viral Hepatitis for all patients aged 18 and over and those with ongoing risk factors. Tk Inquiry Pt receiving controlled substance: No Tk was queried for this patient: No Vital Signs: 04/01/25 16:03 04/01/25 16:19 Temperature 98.4 F 98.4 F Temperature Source Oral Oral Pulse Rate 62 Pulse Rate [Right] 62 Respiratory Rate 17 17 Blood Pressure 124/81 Blood Pressure [Right Arm] 124/81 Blood Pressure Mean [Right Arm] 95 Blood Pressure Source Automatic Cuff Blood Pressure Source [Right Arm] Automatic Cuff Blood Pressure Position Supine Blood Pressure Position [Right Arm] Supine 02 Sat by Pulse Oximetry 94 L 94 L Oxygen Delivery Method Room Air Room Air Orders (Tests/Meds): ORDERS Category Date Time Status Urinalysis and Microscopic Stat Lab 04/01/25 16:08 Ordered Medical Decision Narrative: 64-year-old male presents the emergency department for complication with his Cavanaugh catheter, differential diagnose include but not limited to, encounter for Cavanaugh catheter care, Cavanaugh catheter malfunction, urinary outflow obstruction among others. Will troubleshoot the patient's catheter with irrigation and flushing, per nursing staff, will also BladderScan and obtain UA. Patient's urinary catheter was flushed/irrigated, some amorphous sediment present, patient's catheter is now flowing appropriately, patient tolerated well, patient tells me he is currently on cefdinir antibiotic therapy been taking medication as prescribed has urology follow-up in the upcoming days, thus will defer UA at this time. Patient was given strict ED return precautions. Patient voiced understanding and agreement with the current treatment plan/discharge plan. He will keep follow-up with urologist in the upcoming days. Critical Care Critical Care Time Critical Care Time: No
[2025-04-01 16:19] VITALS: BP 124/81; PULSE 62; RESP 17; TEMP 36.9; O2SAT 94
--- NOTE | 2025-04-01 16:22 | PC.NURSE ---
pt catheter flushed with 10 MLs of sterile saline, urine returned noted.
[2025-04-01 16:30] VITALS: BP 130/72; PULSE 59; O2SAT 92
[2025-04-01 16:39] VITALS: BP 130/72; PULSE 66; RESP 17; TEMP 36.9; O2SAT 95
[2025-04-01 16:40] LABS: Microscopic, Urine URINE MICROSCOPIC (MICROSCOPIC)
[2025-04-01 16:41] LABS: Color,Urine YELLOW (Yellow); Glucose,Urine (UA) Negative (Negative); Ketones,Urine Negative (Negative); Leukocyte Esterase,Urine TRACE (Negative); PH,Urine 6.0 (5.0-8.5); Protein,Urine 2+ (Negative); Specific Gravity, Urine 1.015 (1.005-1.030); Urobilinogen,Urine 0.2 EU/dl (0.2)
[2025-04-01 16:58] LABS: Bilirubin,Urine 1+ (Negative)
[2025-04-01 16:59] LABS: RBC,Urine TNTC #/hpf (0-3)
== END 2025-04-01 16:43 | disposition home or self-care (01) ==
PROVIDERS: Physician Assistant; Emergency Provider Student in an Organized Health Care Education/Training Program; PCP Nurse Practitioner Family
DX: T83.091A Other mechanical complication of indwelling urethral catheter, initial encounter (principal)
CPT/HCPCS: 51798; 81001; 99283

== ENCOUNTER 2025-04-13 23:59 | Emergency (ER) | payer MEDICARE, SELFPAY ==
[2025-04-14 01:15] VITALS: BP 123/69; PULSE 60; RESP 17; TEMP 36.8; O2SAT 97; BMI 39.4
--- OUTSIDE RECORDS SUMMARY | 2025-04-14 01:22 | XMS_ITS | Encounter Summary ---
Author Organization Healthcare Address [address] [place] [address] Care Team Providers Care Machinery Engineer Name Role Phone Savage Reardon MD Primary Care Provider [phone] Clayton James MD Unavailable [phone] Reason for Visit * Reason Comments Med Refill Encounter Details Date Type Department Care Team (Late st Contact Info) Description 02/09/2025 Refill [place] [facility] [address] [place] [address] Daniel Grajeda MD [address] [place] [address] Degeneration of intervertebral disc of [...] documented as of this encounter Care Teams Machinery Engineer Relationship Specialty Start Date End Date Savage Reardon MD [address] [place] [address] PCP - General 12/13/20 Clayton James MD [address] [place] [address] Surgeon Neurosurgery 09/22/24 documented as of this encounter
--- OUTSIDE RECORDS SUMMARY | 2025-04-14 01:22 | XMS_ITS | Clinical Summary ---
Author Organization [facility] Address [address] [place] [address] Care Team Providers Care Stripper Soft Plastic Name Role Phone Savage Reardon MD Primary Care Provider [phone] Clayton James MD Unavailable [phone] Allergies Active Allergy Reactions Criticality Noted [...] Type Department Care Team Description 03/21/2025 Refill [facility] [address], [address] [place] [phone] Clayton James MD Degeneration of intervertebral disc of lumbar region with discogenic back pain and lower extremity pain; Chronic bilateral low back pain with right-sided sciatica 02/09/2025 Refill [facility] [address] [place] [address] Gris Sylvester PA Degeneration of intervertebral disc of lumbar region with discogenic back pain and lower extremity pain (Primary Dx); Chronic bilateral low back pain with right-sided sciatica 02/09/2025 Refill [facility] [address] [place] [phone] Daniel Grajeda MD Degeneration of intervertebral disc [...] 2008 [facility]-Zoster Vaccines (1 of 2) 2008 [id number]-UZGRW-50 Vaccine (1 - 20 24-25 season) 2025 [facility]-Influenza Vaccine (#1) 2025 [facility]-RSV Vaccine: 60+ [...] this topic Insurance [employer]M MEDICARE Care Teams Stripper Soft Plastic Relationship Specialty Start Date End Date Savage Reardon MD [address] [place] [address] PCP - General 12/13/20 Clayton James MD [address] [place] [address] Surgeon Neurosurgery 09/22/24
--- OUTSIDE RECORDS SUMMARY | 2025-04-14 01:22 | XMS_ITS | Encounter Summary ---
Author Organization Healthcare Address [address] [place] [address] Care Team Providers Care Manager Order Name Role Phone Savage Reardon MD Primary Care Provider [phone] Clayton James MD Unavailable [phone] Reason for Visit * Reason Comments Med Refill Encounter Details Date Type Department Care Team (Late st Contact Info) Description 03/21/2025 Refill [place] [facility] [address], [address] [place] [address] Clayton James MD [address] [place] [address] Degeneration of intervertebral disc of [...] documented as of this encounter Care Teams Manager Order Relationship Specialty Start Date End Date Savage Reardon MD [address] [place] [address] PCP - General 12/13/20 Clayton James MD [address] [place] [address] Surgeon Neurosurgery 09/22/24 documented as of this encounter
--- OUTSIDE RECORDS SUMMARY | 2025-04-14 01:22 | XMS_ITS | Encounter Summary ---
[facility] Address [address] [place] [address] Care Team Providers Care Cafeteria Assistant Name Role Phone Jennifer Newton APRN Primary Care Provid er Reason for Visit * Reason Comments Med Refill Encounter Details Date Type Department Care Team (Late st Contact Info) Description 03/10/[address] [facility] [address] [address] Damien Cosme, [address] [place] [phone] Social History Tobacco Use Types Packs/Day Years [...] Visit [facility] [address] [facility] [address] [place] [phone] Valeria Machuca APRN 330 [facility] 100 [place] [address] documented as of this encounter Goals Goal Patient Goal Type Associated Problems Recent Progress Patient-Stated? Author Specialty Pharmacy General Goal General No Alvin Maier, JonatanD Note: Reduce number of flares and pain score. documented as of this encounter Visit Diagnoses Not on filedocumented in this encounter Care Teams Cafeteria Assistant Relationship Specialty Start Date End Date Jennifer Newton APRN [address] [facility] [address] [facility] [address] PCP - General Family Medicine 03/20/24 documented as of this encounter
--- OUTSIDE RECORDS SUMMARY | 2025-04-14 01:22 | XMS_ITS | Encounter Summary ---
[facility] Address [address] [place] [address] Care Team Providers Care Tab Cutting Machine Operator Name Role Phone Jennifer Newton APRN Primary Care Provid er Reason for Visit * Reason Comments Med Refill Encounter Details Date Type Department Care Team (Late st Contact Info) Description 03/30/2025 Refill [facility] 330 [facility] 100 [place] [address] Damien Cosme, [address] [place] [phone] High risk medication use Social History Tobacco [...] Description 05/14/2025 2:30 PM EDT Office Visit [facility] [address] [facility] [address] [place] [phone] Valeria Machuca APRN 330 [facility] 100 [place] [address] documented as of this encounter Goals Goal Patient Goal Type Associated Problems Recent Progress Patient-Stated? Author Specialty Pharmacy General Goal General No Alvin Maier, Namrata Note: Reduce number of flares and pain score. documented as of this encounter Visit Diagnoses Diagnosis High risk medication use documented in this encounter Care Teams Tab Cutting Machine Operator Relationship Specialty Start Date End Date Jennifer Newton APRN 12[address] [facility] [address] [place] [address] PCP - General Family Medicine 03/20/24 documented as of this encounter
--- OUTSIDE RECORDS SUMMARY | 2025-04-14 01:22 | XMS_ITS | Encounter Summary ---
[facility] [address] [place] [address] Care Team Providers Care Storage Facility Housekeeper Name Role Phone Jennifer Newton APRN Primary Care Provid er Encounter Details Date Type Department Care Team (Late st Contact Info) Description 01/15/2025 Results Follow-Up [facility] 330 [facility] 100 [place] [address] Valeria Machuca APRN 330 [facility] [address] [place] [address] Social History Tobacco Use Types [...] 2:30 PM EDT Office Visit [facility] 330 [facility] [address] [place] [phone] Valeria Machuca APRN 330 [facility] [address] [place] [address] documented as of this encounter Goals Goal Patient Goal Type Associated Problems Recent Progress Patient-Stated? Author Specialty Pharmacy General Goal General No Alvin Maier, PharmD Note: Reduce number of flares and pain score. documented as of this encounter Visit Diagnoses Not on filedocumented in this encounter Care Teams Storage Facility Housekeeper Relationship Specialty Start Date End Date Jennifer Newton APRN 12[address] [facility] [address] [facility] [address] [place] [address] PCP - General Family Medicine 03/20/24 documented as of this encounter
--- OUTSIDE RECORDS SUMMARY | 2025-04-14 01:22 | XMS_ITS ---
Author Organization [facility] Address [address] [place] [address] Care Team Providers Care Business Analysis Professional Name Role Phone Jennifer Newton APRN Primary Care Provid er Rheumatology - External Fill Status:Enrolled (Active) Start date:01/16/2025 Enrollment date:01/16/2025 Enrollment reason:Identified as being on target medication Current support & services provided:Benefits Investigation, External Pharmacy Dispensing Linked medications:Adalimumab (Active) Linked problems:Seropositive rheumatoid arthritis (Active) Overview Maddi KAUFFMAN approved through 08.01.25 Continued Care and Services Coordination
--- OUTSIDE RECORDS SUMMARY | 2025-04-14 01:22 | XMS_ITS | Encounter Summary ---
Author Organization Healthcare Address [address] [place] [address] Care Team Providers Care Geothermal Powerplant Supervisor Name Role Phone Savage Reardon MD Primary Care Provider [phone] Clayton James MD Unavailable [phone] Reason for Visit * Reason Comments Med Refill Encounter Details Date Type Department Care Team (Late st Contact Info) Description 11/19/2024 Refill [place] [facility] [address], [address] [place] [address] Clayton James MD [address] [place] [address] Degeneration of intervertebral disc [...] documented as of this encounter Care Teams Geothermal Powerplant Supervisor Relationship Specialty Start Date End Date Savage Reardon MD [address] [place] [address] PCP - General 12/13/20 Clayton James MD [address] [place] [address] Surgeon Neurosurgery 09/22/24 documented as of this encounter
--- OUTSIDE RECORDS SUMMARY | 2025-04-14 01:22 | XMS_ITS | Encounter Summary ---
Author Organization Healthcare Address [address] [place] [address] Care Team Providers Care Art Objects Salesperson Name Role Phone Savage Reardon MD Primary Care Provider [phone] Clayton James MD Unavailable [phone] Encounter Details Date Type Department Care Team (Late st Contact Info) Description 05/04/2024 Orders Only External Location [address] [place] [address] Savage Reardon MD [address] [place] [address] Social History Tobacco Use Types [...] on filedocumented in this encounter Care Teams Art Objects Salesperson Relationship Specialty Start Date End Date Savage Reardon MD [address] [place] [address] PCP - General 12/13/20 Clayton James MD [address] [place] [address] Surgeon Neurosurgery 09/22/24 documented as of this encounter
--- OUTSIDE RECORDS SUMMARY | 2025-04-14 01:22 | XMS_ITS | Clinical Summary ---
Author Organization [facility] Address [address] [place] [address] Care Team Providers Care Final Application Reviewer Name Role Phone Jennifer Newton APRN Primary [...] Week. 40 tablet 3 03/30/20 25 Active methotrexate 2.5 MG tabletIndicati ons:High [...] normal, DS DNA normal, Ribosomal P normal, DE ALCHOLIZER normal, SCL 70 normal, Morrow normal, SSA [...] normal, DS DNA normal, Ribosomal P normal, DE ALCHOLIZER normal, SCL 70 normal, Morrow normal, SSA [...] normal, DS DNA normal, Ribosomal P normal, DE ALCHOLIZER normal, SCL 70 normal, Morrow normal, SSA [...] Care Team Description 03/30/2025 Refill [facility] [address] [place] [phone] Damien Cosme, High risk medication use 03/10/2025 Refill [facility] [address] [place] [phone] Damien Cosme DO 01/15/2025 Results Follow-Up [facility] [address] [place] [phone] Valeria Machuca APRN 01/12/2025 2:30 PM EDT Office Visit [facility] [address] [phone] Valeria Machuca APRN Seropositive rheumatoid arthritis (Primary [...] 2:30 PM EDT Office Visit [facility] [address] [place] [address] Valeria Machuca APRN [address] [facility] [address] [place] [address] Health Maintenance Due Date Last Done Comments [...] 03/29/2024 02/02/2024 COVID-19 Vaccine (3 - season) 2025, 01/11/2021 INFLUENZA VACCINE 05/02/2025 05/16/2024, , 07/05/2017 [...] 01/12/2025 3:20 PM EDT 01/12/2025 Narrative [facility] (AMBULATORY) - 01/13/2025 9:07 AM EDT Performed at: 01 - [address] [id number] Ranch Helper: Uziel Lundy PhD, Phone: [phone] Patient Fasting: Y Valeria Machuca APRN LAB BLOOD ORDERABLES Final Result [facility] (AMBULATORY) [address] [place] [address], [facility] [address] [place] [address], * (ABNORMAL) CBC (No Diff) (01/12/2025 3:20 PM EDT) WBC 12.0(H) 3.4 - 10.8 x10E3/uL [facility] [...] 9:07 AM EDT Performed at: 01 - [facility] [address] [place], [place] [id number] [place] Helper: Uziel Lundy PhD, Phone: [phone] Patient Fasting: Y Valeria Machuca APRN LAB BLOOD ORDERABLES Final Result Performing Organization Address City/[facility] Co de Phone Number [facility] [address] [place] [address], [place] [phone] [facility] [address] [place] [address], [place] [phone] * C-reactive Protein (01/12/2025 3:20 PM EDT) C-Reactive Protein 5 0 - 10 mg/L [facility] Blood 01/12/2025 3:20 PM EDT 01/12/2025 Narrative [facility] (AMBULATORY) - 01/13/2025 9:07 AM EDT Performed at: - [facility] [address] [place], [place] [id number] Ranch Helper: Uziel Lundy PhD, Phone: [phone] Patient Fasting: Y Valeria Machuca APRN LAB BLOOD ORDERABLES Final Result Performing Organization Address [facility]/ZIP Co de Phone Number [facility] (AMBULATORY) [address] [place] [address], [place] [phone] [facility] [address] [place] [address], [place] [phone] * Comprehensive Metabolic Panel (01/12/2025 3:20 PM [...] 01/12/2025 3:20 PM EDT 01/12/2025 Narrative [facility] (AMBULATORY) - 01/13/2025 9:07 AM EDT Performed at: - [address] [id number] [place]per: Uziel Lundy PhD, Phone: [phone] Patient Fasting: Y us Valeria Machuca APRN LAB BLOOD ORDERABLES Final Result [facility] [address] [place] [address], [facility] [address] [place] [address], * Hepatitis Panel, Acute (09/15/2024 2:32 PM EST) Hepatitis B Surface Ag Non-Reacti ve Non-Reacti ve 09/15/2024 11:42 PM EST [facility] Hep A IgM Non-Reacti ve Non-Reacti ve 09/15/2024 11:42 PM EST [facility] Hep B C IgM Non-Reacti ve Non-Reacti ve 09/15/2024 11:42 PM EST [facility] Hepatitis C Ab Non-Reacti ve Non-Reacti ve 09/15/2024 11:42 PM EST [facility] Blood Venipuncture / Unknown 09/15/2024 2:32 PM EST 09/15/2024 2:33 PM EST Narrative [facility] - 09/15/2024 11:42 PM EST Results may be falsely decreased if patient taking Biotin. Damien Cosme DO LAB BLOOD ORDERABLES F inal Result [facility]
[address] [place] [address], from Last 3 Months or Most Recently Relevant to Health Maintenance Insurance [facility] MEDICARE ADVANTAGE HMO Care Teams Final Application Reviewer Relationship Specialty Start Date End Date Jennifer Newton APRN [address] [facility] [address] [place] [address] PCP - General Family Medicine 03/20/24
--- OUTSIDE RECORDS SUMMARY | 2025-04-14 01:22 | XMS_ITS | Encounter Summary ---
Author Organization [facility] Address [address] [place] [address] Care Team Providers Care Manager University Name Role Phone Savage Reardon MD Primary Care Provider [phone] Clayton James MD Unavailable [phone] Reason for Visit * Reason Comments Med Refill Encounter Details Date Type Department Care Team (Late st Contact Info) Description 12/12/2024 Refill [facility] [address] [place] [address] Clayton James MD [address] [place] [address] Degeneration of intervertebral disc of [...] 12/12/2024 8:12 AM EDT Tk request #: [id number] reviewed and appropriate. Refill sent to the [...] as of this encounter Care Teams Manager University Relationship Specialty Start Date End Date Savage Reardon MD [address] [place] [address] PCP - General 12/13/20 Clayton James MD [address] [place] [address] Surgeon Neurosurgery 09/22/24 documented as of this encounter
--- NOTE | 2025-04-14 02:10 | CT_ITS ---
PROCEDURE INFORMATION: Exam: CT Head Without Contrast Exam date and time: 04/14/2025 3:43 AM Age: 64 years old Clinical indication: Injury or trauma; Fall; Blunt trauma (contusions or hematomas); Additional info: Fall on thinners TECHNIQUE: Imaging protocol: Computed tomography of the head without contrast. Radiation optimization: All CT scans at this facility use at least one of these dose optimization techniques: automated exposure control; mA and/or kV adjustment per patient size (includes targeted exams where dose is matched to clinical indication); or iterative reconstruction. COMPARISON: 1. CT ANGIO HEAD 09/07/2024 9:[address] HEAD/BRAIN WO CON 09/07/2024 9:28 PM FINDINGS: Brain: Age-appropriate diffuse cerebral volume loss. No acute intracranial hemorrhage. No abnormal extra-axial fluid collection. No midline shift or mass effect. No acute large territory infarct. Chronic white matter changes, likely to be chronic small-vessel ischemic changes. Cerebral ventricles: No ventriculomegaly. Paranasal sinuses: Visualized paranasal sinuses are clear. Mastoid air cells: Visualized mastoid air cells are clear. Orbital cavities: Status post bilateral intra-ocular lens replacement. Bones: No acute fracture. Soft tissues: Unremarkable. IMPRESSION: No acute intracranial abnormality.
--- NOTE | 2025-04-14 02:10 | CT_ITS ---
PROCEDURE INFORMATION: Exam: CTA Chest With Contrast Exam date and time: 04/14/2025 3:48 AM Age: 64 years old Clinical indication: Injury or trauma; Fall; Blunt trauma (contusions or hematomas); Additional info: Fall on thinners onto R side TECHNIQUE: Imaging protocol: Computed tomographic angiography of the chest with contrast. Exam focused on the arteries. 3D rendering (Not supervised by radiologist): MIP and/or 3D reconstructed images were created by the technologist. Radiation optimization: All CT scans at this facility use at least one of these dose optimization techniques: automated exposure control; mA and/or kV adjustment per patient size (includes targeted exams where dose is matched to clinical indication); or iterative reconstruction. Contrast material: ISO; Contrast volume: 80 ml; Contrast route: INTRAVENOUS (IV); COMPARISON: CT ANGIO CHEST PE PROTOCOL 07/12/2024 10:08 PM FINDINGS: Pulmonary arteries: Normal. No pulmonary emboli. Aorta: Unremarkable. No aortic aneurysm. No aortic dissection. Lungs: Unremarkable. No consolidation. No masses. Pleural spaces: Unremarkable. No pneumothorax. No pleural effusion. Heart: Unremarkable. No cardiomegaly. No pericardial effusion. Mediastinal space: There no mediastinal hematoma. Lymph nodes: Unremarkable. No enlarged lymph nodes. Bones/joints: No acute fracture. Soft tissues: Unremarkable. IMPRESSION: 1. There is no significant traumatic injury seen. 2. No acute cardiac or pulmonary process.
--- NOTE | 2025-04-14 02:10 | CT_ITS ---
PROCEDURE INFORMATION: Exam: CT Cervical Spine Without Contrast Exam date and time: 04/14/2025 3:46 AM Age: 64 years old Clinical indication: Injury or trauma; Fall; Blunt trauma; Additional info: Fall on thinners TECHNIQUE: Imaging protocol: Computed tomography of the cervical spine without contrast. Radiation optimization: All CT scans at this facility use at least one of these dose optimization techniques: automated exposure control; mA and/or kV adjustment per patient size (includes targeted exams where dose is matched to clinical indication); or iterative reconstruction. COMPARISON: 2. CT ANGIO NECK 09/07/2024 9:31 PM FINDINGS: Bones: No acute fracture. [id number] chronic degenerative changes without severe spinal stenosis. Stable postoperative changes from C7-T1 ACDF, with no complication noted. Lungs: Visualized lung apices are clear. Soft tissues: Visualized paravertebral soft tissues demonstrate no acute abnormality. IMPRESSION: 1. No acute findings. 2. Stable postoperative changes from C7-T1 ACDF.
--- NOTE | 2025-04-14 02:10 | CT_ITS ---
PROCEDURE INFORMATION: Exam: CTA Abdomen and Pelvis With Contrast Exam date and time: 04/14/2025 3:48 AM Age: 64 years old Clinical indication: Injury or trauma; Fall; Blunt trauma; Lower abdominal or back area; Right; Additional info: Fall on thinners onto R side TECHNIQUE: Imaging protocol: Computed tomographic angiography of the abdomen and pelvis with contrast. Exam focused on the arteries. 3D rendering (Not supervised by radiologist): MIP and/or 3D reconstructed images were created by the technologist. Radiation optimization: All CT scans at this facility use at least one of these dose optimization techniques: automated exposure control; mA and/or kV adjustment per patient size (includes targeted exams where dose is matched to clinical indication); or iterative reconstruction. Contrast material: ISO; Contrast volume: 80 ml; Contrast route: INTRAVENOUS (IV); COMPARISON: CT ABDOMEN PELVIS WO CON 05/04/2024 10:57 AM FINDINGS: Aorta: No abdominal aortic aneurysm. No dissection. No rupture.. Celiac trunk and mesenteric arteries: No occlusion or significant stenosis. Renal arteries: No occlusion or significant stenosis. Right iliac arteries: No occlusion or significant stenosis. Left iliac arteries: No occlusion or significant stenosis. Liver: No mass. No liver laceration. No cirrhosis. Gallbladder and biliary ducts: Unremarkable. No calcified stones. No ductal dilation. Pancreas: No pancreatic ductal dilation. No pancreatic laceration. Spleen: No splenic laceration. No splenomegaly. Adrenal glands: Normal. No mass. No laceration. Kidneys and ureters: No hydronephrosis. No renal laceration. Stomach and bowel: Unremarkable. No obstruction. No mucosal thickening. Appendix: No evidence of appendicitis. Intraperitoneal space: Unremarkable. No free air. No significant fluid collection. Lymph nodes: Unremarkable. No enlarged lymph nodes. Urinary bladder: Unremarkable. No mass. Reproductive: Unremarkable as visualized. Bones/joints: No acute fracture. No dislocation. Soft tissues: Unremarkable. IMPRESSION: No significant traumatic injury to the abdomen or pelvis.
[2025-04-14 03:10] LABS: Hematocrit 35.8 % (42.0-52.0); Hemoglobin 12.2 g/dL (14.1-18.0); Immature Granulocytes % 0.9 %; Mean Corpuscular HGB Conc 34.1 g/dL (31.8-35.4); Mean Corpuscular Hemoglobin 36.4 pg (27.0-31.2); Mean Corpuscular Volume 106.9 fl (80-94); Nucleated Red Blood Cells % 0 %; Platelet Count 345 K/mm3 (142-424); Red Blood Count 3.35 M/mm3 (4.60-6.20); Red Cell Distribution Width-SD 56.4 fL; White Blood Count 10.4 K/mm3 (4.8-10.8)
[2025-04-14 03:13] LABS: Albumin Level 4.0 g/dl (3.5-5.0); Chloride 104 mmol/L (98-107); Potassium 3.5 mmoL/L (3.5-5.1); Sodium 138 mmol/L (136-145)
[2025-04-14 03:16] LABS: Alanine Aminotransferase 25 U/L (12-78); Albumin/Globulin Ratio 1.5 (1.1-1.8); Alkaline Phosphatase 89 U/L (38-126); Anion Gap 12.5 mEq/L (5-15); Aspartate Amino Transferase 35 U/L (17-59); Bilirubin,Total 0.4 mg/dl (0.2-1.3); Blood Urea Nitrogen 10 mg/dl (9-20); Calcium 9.2 mg/dl (8.4-10.2); Carbon Dioxide 25 mmol/L (22.0-30.0); Creatinine Clearance Estimated 128 mL/min (50-200); Creatinine,Serum 1.00 mg/dl (0.66-1.25); Estimated Glomerular Filt Rate 75 ml/min (>60); GFR (African American) 90 ML/MIN (>60); Globulin 2.6 g/dL (1.3-3.2); Glucose 117 mg/dl (74-100); INR 0.95 (0.9-1.1); Prothrombin Time 10.6 seconds (10.1-12.5); Total Protein,Serum 6.6 g/dl (6.3-8.2)
--- NOTE | 2025-04-14 03:31 | XR_ITS ---
PROCEDURE INFORMATION: Exam: XR Right Elbow Exam date and time: 04/14/2025 3:53 AM Age: 64 years old Clinical indication: Injury or trauma; Fall; Blunt trauma (contusions or hematomas); Arm, upper and arm, lower; Right; Additional info: Fall onto R arm TECHNIQUE: Imaging protocol: Radiologic exam of the right elbow. Views: 3 or more views. COMPARISON: CR XR SHOULDER RT MIN 2V 04/14/2025 3:48 AM FINDINGS: Bones/joints: Normal. The joints are well aligned. There is no fracture present. There is no area of lysis. Soft tissues: Normal. IMPRESSION: No fracture or dislocation.
--- NOTE | 2025-04-14 03:52 | XR_ITS ---
PROCEDURE INFORMATION: Exam: XR Right Shoulder Exam date and time: 04/14/2025 3:48 AM Age: 64 years old Clinical indication: Injury or trauma; Fall; Blunt trauma (contusions or hematomas); Shoulder and elbow; Right; Additional info: Fall onto R arm TECHNIQUE: Imaging protocol: Radiologic exam of the right shoulder. Views: 2 or more views. COMPARISON: CT CERVICAL SPINE WO CON 04/14/2025 3:46 AM FINDINGS: Bones/joints: Normal. There is no fracture present. The shoulder joint appears well aligned. The acromioclavicular joint is unremarkable. The visualized ribs and lungs are unremarkable. Soft tissues: Normal. IMPRESSION: Unremarkable examination with no fracture or dislocation.
--- NOTE | 2025-04-14 03:52 | [facility].EDGENADL ---
Discharge Plan Disposition Patient Disposition: Home, Self-Care Condition: Good Prescriptions Prescriptions: New lidocaine 5 % adhesive patch,medicated See Rx Instructions .ROUTE .COMPLEX Qty: 15 0RF Rx Instructions: Apply to most painful area and leave on for 12 hours. Remove and leave off for 12 hours before using a new patch. No Action gabapentin 600 mg tablet 600 mg PO TID Patient Comments: TAKE ONE TABLET BY MOUTH THREE TIMES DAILY MAY CAUSE DROWSINESS multivitamin Tablet 1 tab PO DAILY polyethylene glycol 3350 [Miralax] 17 gram/dose powder 17 g PO DAILY Citrucel (sucrose) Powder 1 tbsp PO DAILY Creon 36,000-114,000- 180,000 unit capsule,delayed release(DR/EC) 1 cap PO QID Rx Instructions: administer with meals and/or snacks metoprolol succinate 100 mg tablet extended release 24 hr 150 mg PO BID 30 Days Qty: 90 2RF varenicline tartrate [Chantix Starting Month Box] 0.5 mg (11)- 1 mg (42) tablets,dose pack See Rx Instructions PO PER PKG DIR Qty: 53 0RF Rx Instructions: PO PER PKG DIR varenicline tartrate [Chantix Continuing Month Box] 1 mg tablet 1 mg PO BID Qty: 56 4RF tamsulosin 0.4 mg capsule 0.4 mg PO HS 90 Days Qty: 90 albuterol sulfate 90 mcg/actuation HFA aerosol inhaler 2 puff INHALATION QIDP PRN (Reason: Shortness Of Breath) 25 Days Qty: 9 Patient Comments: INHALE 2 PUFFS BY MOUTH FOUR TIMES DAILY * SHAKE WELL BEFORE USE * methotrexate sodium 2.5 mg tablet 20 mg PO WEEKLY Rx Instructions: PATIENT TAKES 8 TABLETS BY MOUTH ONCE WEEKLY ON WEDNESDAY folic acid 1 mg tablet 1 mg PO DAILY Patient Comments: TAKE ONE TABLET BY MOUTH EVERY DAY EXCEPT FOR THE DAY you take methotrexate Rx Instructions: Patient takes 6 days a week. trazodone 100 mg tablet 100 - 150 mg PO DAILY Qty: 45 2RF isosorbide mononitrate 60 mg tablet extended release 24 hr 90 mg PO BID 30 Days Qty: 90 2RF cariprazine [Vraylar] 1.5 mg capsule 1.5 mg PO DIRECTED 0RF clopidogrel 75 mg tablet See Rx Instructions .ROUTE .COMPLEX Qty: 90 3RF Dose Instruction: TAKE ONE TABLET BY MOUTH EVERY DAY Rx Instructions: TAKE ONE TABLET BY MOUTH EVERY DAY ranolazine 1,000 mg tablet extended release 12 hr See Rx Instructions .ROUTE .COMPLEX Qty: 180 3RF Dose Instruction: TAKE ONE TABLET BY MOUTH TWICE DAILY Rx Instructions: TAKE ONE TABLET BY MOUTH TWICE DAILY spironolactone 50 mg tablet 50 mg PO DAILY Qty: 90 1RF pantoprazole 40 mg tablet,delayed release (DR/EC) See Rx Instructions .ROUTE .COMPLEX Qty: 90 3RF Dose Instruction: TAKE ONE TABLET BY MOUTH EVERY DAY Rx Instructions: TAKE ONE TABLET BY MOUTH EVERY DAY lamotrigine [Lamictal] 25 mg tablet 25 mg PO BID Qty: 60 2RF Rx Instructions: Take with Lamictal 150 mg bid. If you develop a rash, stop the medication and call the clinic. budesonide-formoterol 160-4.5 mcg/actuation HFA aerosol inhaler 2 puff inhalation BID 90 Days Qty: 10.2 2RF methocarbamol 750 mg tablet See Rx Instructions .ROUTE .COMPLEX Qty: 90 2RF Dose Instruction: TAKE ONE TABLET BY MOUTH THREE TIMES DAILY MAY CAUSE DROWSINESS Rx Instructions: TAKE ONE TABLET BY MOUTH THREE TIMES DAILY MAY CAUSE DROWSINESS atorvastatin 80 mg tablet 80 mg PO HS potassium chloride 10 mEq tablet extended release 10 meq PO DAILY Patient Comments: TAKE ONE TABLET BY MOUTH EVERY DAY nitroglycerin 0.4 mg tablet, sublingual 0.4 mg sublingual Q5MINP PRN (Reason: Chest Pain) dutasteride 0.5 mg capsule 0.5 mg PO DAILY Patient Comments: TAKE ONE CAPSULE BY MOUTH EVERY DAY cholecalciferol (vitamin D3) [Vitamin D3] 125 mcg (5,000 unit) Tablet 5,000 unit PO DAILY PreserVision AREDS-2 250-90-40-1 mg Capsule 1 cap PO BID lamotrigine 150 mg tablet 150 mg PO BID Patient Comments: TAKE ONE TABLET BY MOUTH TWICE DAILY amlodipine 10 mg tablet 10 mg PO DAILY Rx Instructions: TAKE ONE TABLET BY MOUTH EVERY DAY furosemide 40 mg tablet 80 mg PO DAILY Rx Instructions: TAKE TWO TABLETS BY MOUTH EVERY DAY aspirin 81 mg Tablet,Delayed Release (Dr/Ec) 81 mg PO DAILY ipratropium-albuterol 0.5 mg-3 mg(2.5 mg base)/3 mL Solution For Nebulization 3 ml inhalation Q6H PRN (Reason: shortness of breath or wheezing) 30 Days Qty: 180 0RF Referrals Follow up/Referrals: Provider,Referral, MD [Primary Care Provider, Medical] - See instructions Activity Restrictions/Add. Instructions Additional Instructions/Restrictions: You were evaluated in the ER and are believed to be appropriate for discharge at this time. Take Tylenol if needed for pain, do not exceed the recommended dose on the bottle. Drink water and eat small snack each time you take to avoid side effects. Use the lidocaine patches as directed. Remove the lidocaine patch that we put on in the ER at 5 PM today. Make an appointment with your primary care doctor for reevaluation in 2 to 3 days. Return to the ER with any new, worsening, or otherwise concerning symptoms Clinical Impressions Clinical Impression: Fall, Rib pain on right side Print Language Print Language: Portuguese Discharge ED Provider: Stephani Rivas General Adult HPI General Chief complaint: Fall Stated complaint: fall 2030, arm, rib pain ,sob Time Seen by Provider: 04/14/25 01:19 Mode of Arrival: Ambulatory Source of Information: Patient Description of Symptoms (Recalled from ER Triage Doc. by RN): Pt states he took a fall at home this evening at approx 2030, landed on his right side. Pt complains of right arm/shoulder pain as well as rib pain with cough and inspration. Denies any LOC, is on Plavix History of Present Illness HPI narrative: 64-year-old male on aspirin and Plavix presents to the ER after ground-level fall. Patient reports he tripped over a ledge in the sidewalk while walking his dog and landed on his right side/arm. Patient complains of pain near his right elbow, right shoulder, and pain in his right lower ribs with cough and inspiration. He denies any abdominal pain, no numbness, tingling, or weakness. He denies hitting his head or loss of consciousness. No complaints of pain or injury to the legs. Patient is primarily worried about the pain in his elbow and ribs. Related Data Home Medications ?Medication ?Instructions ?Recorded ?Confirmed albuterol sulfate 90 mcg/actuation 2 puff inhalation QIDP PRN 10/27/18 03/26/25 aerosol inhaler Shortness Of Breath 25 days #9 grams tamsulosin 0.4 mg capsule 0.4 mg PO HS 90 days #90 caps 10/27/18 03/26/25 folic acid 1 mg tablet 1 mg PO DAILY 10/26/22 03/26/25 methotrexate sodium 2.5 mg tablet 20 mg PO WEEKLY 10/26/22 03/26/25 atorvastatin 80 mg tablet 80 mg PO HS 03/12/24 03/26/25 nitroglycerin 0.4 mg sublingual 0.4 mg sublingual Q5MINP PRN Chest 03/12/24 03/26/25 tablet Pain potassium chloride 10 mEq 10 meq PO DAILY 03/12/24 03/26/25 tablet,extended release cholecalciferol (vitamin D3) 125 5,000 unit PO DAILY 04/17/24 03/26/25 mcg (5,000 unit) tablet (Vitamin D3) dutasteride 0.5 mg capsule 0.5 mg PO DAILY 04/17/24 03/26/25 lamotrigine 150 mg tablet 150 mg PO BID 04/17/24 03/26/25 vit C 250 mg-vit E 90 mg-zinc 40 1 cap PO BID 04/17/24 03/26/25 mg-copper 1 [id number] capsule (PreserVision AREDS-2) aspirin 81 mg tablet,delayed 81 mg PO DAILY 07/13/24 03/26/25 release furosemide 40 mg tablet 80 mg PO DAILY 07/13/24 03/26/25 gabapentin 600 mg tablet 600 mg PO TID 10/23/24 03/26/25 amlodipine 10 mg tablet 10 mg PO DAILY 12/19/24 03/26/25 [id number] 1 cap PO QID 03/26/25 03/26/25 36,000-114,000-180,000 unit capsule,delay rel (Creon) methylcellulose (with sugar) oral 1 tbsp PO DAILY 03/26/25 03/26/25 powder (Citrucel (sucrose) oral powder) multivitamin 1 tab PO DAILY 03/26/25 03/26/25 polyethylene glycol 3350 17 17 g PO DAILY 03/26/25 03/26/25 gram/dose oral powder (Miralax) Previous Rx's ?Medication ?Instructions ?Recorded ipratropium 0.5 mg-albuterol 3 mg 3 ml inhalation Q6H PRN shortness 07/15/24 (2.5 mg base)/3 mL nebulization of breath or wheezing 30 days #180 soln mL clopidogrel 75 mg tablet See Rx Instructions .Route 10/16/24 .COMPLEX #90 tabs ranolazine 1,000 mg See Rx Instructions .Route 11/20/24 tablet,extended release,12 hr .COMPLEX #180 tabs isosorbide mononitrate 60 mg 90 mg (1.5 x 60 mg) PO BID 30 days 11/29/24 tablet,extended release 24 hr #90 tabs trazodone 100 mg tablet 100 - 150 mg (1 - 1.5 x 100 mg) PO 12/15/24 DAILY #45 tabs spironolactone 50 mg tablet 50 mg PO DAILY #90 tabs 12/19/24 pantoprazole 40 mg tablet,delayed See Rx Instructions .Route 01/08/25 release .COMPLEX #90 tabs metoprolol succinate 100 mg 150 mg (1.5 x 100 mg) PO BID 30 02/21/25 tablet,extended release 24 hr days #90 tabs lamotrigine 25 mg tablet (Lamictal) 25 mg PO BID #60 tabs 03/11/25 varenicline tartrate 0.5 mg (11)-1 See Rx Instructions PO PER PKG DIR 03/22/25 mg (42) tablets in a dose pack #53 tabs (Chantix Starting Month Box) varenicline tartrate 1 mg tablet 1 mg PO BID #56 tabs 03/22/25 (Chantix Continuing Month Box) budesonide-formoterol HFA 160 2 puff inhalation BID 90 days 03/29/25 mcg-4.5 mcg/actuation aerosol #10.2 grams inhaler methocarbamol 750 mg tablet See Rx Instructions .Route 04/04/25 .COMPLEX #90 tabs lidocaine 5 % topical patch See Rx Instructions topical 04/14/25 .COMPLEX #15 ea Allergies Allergy/AdvReac Type Severity Reaction Status Date / Time nickel (NICKEL) Allergy Unknown I-RASH Verified 03/26/25 10:10 quetiapine (From SEROQUEL) Allergy Unknown I-RASH Verified 03/26/25 10:10 mirtazapine AdvReac Intermediate Hallucinati Verified 03/26/25 10:10 ng NSAIDS (Non-Steroidal AdvReac Other Verified 03/26/25 10:10 Anti-Inflamma [facility] Disclaimer: The information contained in this section may have been updated after the patient was seen, as this information can be updated by other users. Medical History Lymphedema Incontinence BLADDER Enlarged prostate Anxiety Coronary artery sclerosis History of COVID-19 Irritable bowel syndrome (IBS) Paraseptal emphysema Typical angina Snoring Daytime somnolence Fatigue Atypical pneumonia Pulmonary emphysema Smoking greater than 30 pack years History of rheumatoid arthritis Acute and chronic respiratory failure with hypoxia Viral pneumonia Grief SOBOE (shortness of breath on exertion) Acute on chronic heart failure with preserved ejection fraction (HFpEF) Deviated nasal septum Macular degeneration CHF (congestive heart failure) COPD exacerbation COPD (chronic obstructive pulmonary disease) Major depressive disorder Callus Abnormal nuclear cardiac imaging test Angina pectoris Hypertension Hyperlipidemia Abnormal result of cardiovascular function study Tachycardia Unstable angina Dizziness GERD (gastroesophageal reflux disease) Abnormal cardiovascular stress test Typical angina Tobacco dependence syndrome Abnormal EKG CAD (coronary artery disease) Edema Dyspnea Chest pain Surgical History H/O neck surgery 2 PLATES, 4 SCREWS History of hernia surgery Two reported operations H/O removal of cyst History of cardiac cath Reported total of 10 stents placed H/O heart artery stent Reported total of 10 stents placed History of coronary artery stent placement Family History Other Cancer Heart disease Hypertension Melanoma Social History Smoking Status: Current every day smoker tobacco type: cigarettes packs per day: 1 and pipe alcohol intake: current alcohol intake frequency: a few times a month substance use type: former substance user and marijuana counseling given: No (patient refused) counseling provided: none current occupational status: other Travel in the last 8 weeks?: None household members: children housing: house marital status: half-way: No caffeine: Yes physical activity: none Have you lived/traveled outside [place] in past 30 days?: No Contact w/someone who lives/traveled outside [place] past 30 days?: No Exposure to someone with infectious disease in past 14 days?: No Do you have a fever (greater than 100.4 F or 38 C)?: No Have you tested positive for COVID-19?: No Exposed to someone with COVID-19 in past 14 days?: No Do you have a sore throat?: No Do you have a cough?: No Do you have any weakness?: No Do you have any diarrhea?: No Are you experiencing any unusual bleeding?: No Do you have any muscle aches/pain?: No Do you have any abdominal pain?: No Are you experiencing loss of taste or smell?: No Other Medical History Have you received the Flu Vaccine for this season: Yes Have you received the Pneumonia Vaccine: Yes ROS Obtained: Yes Systems reviewed as appropriate & no additional complaints except as documented Per HPI Physical Exam General General appearance: alert and in no apparent distress Head Head exam: atraumatic and normocephalic Eye Eye exam: Present PERRL and EOMI ENT ENT exam: Present mucous membranes moist Neck Neck exam: Present normal inspection and full ROM Chest Chest inspection: Present symmetric chest wall rise and tenderness (Mild right lower lateral chest wall with no crepitus or bruising) Respiratory Respiratory exam: Present normal lung sounds bilaterally; Absent respiratory distress, wheezes or stridor Cardiovascular Cardiovascular exam: Present regular rate and normal rhythm Abdominal Exam Abdominal exam: Present soft; Absent distention or tenderness Extremities Exam Extremities exam: Present full ROM, tenderness (Right elbow with no deformity or crepitus, no bruising, full range of motion, mild tenderness at the right shoulder as well with no crepitus, deformity, or other evidence of trauma. Full range of motion.) and other (Bruising on bilateral upper extremities appears old and consistent with blood thinner use) Back Exam Back exam: Absent tenderness Neurological Exam Neurological exam: Present alert and oriented X3; Absent motor sensory deficit Psychiatric Psychiatric exam: Present normal affect and normal mood Skin Skin exam: Present warm and dry Medical Decision Making Medical Records Medical records reviewed: Yes I reviewed the patient's medical records. Screening: Per USPSTF and CDC recommendations, given the prevalence of disease in our region, it is our hospital?s policy to screen for HIV and viral Hepatitis for all patients aged 18 and over and those with ongoing risk factors. Tk Inquiry Pt receiving controlled substance: No Vital Signs: 04/14/25 01:15 Temperature 98.2 F Temperature Source Oral Pulse Rate [Left] 60 Respiratory Rate 17 Blood Pressure [Left Arm] 123/69 Blood Pressure Mean [Left Arm] 87 Blood Pressure Source [Left Arm] Automatic Cuff Blood Pressure Position [Left Arm] Sitting 02 Sat by Pulse Oximetry 97 Oxygen Delivery Method Room Air Lab Data Lab Results 04/14/25 03:00: WBC 10.4, RBC 3.35 L, Hgb 12.2 L, Hct 35.8 L, MCV 106.9 H, MCH 36.4 H, MCHC 34.1, RDW 14.3, Plt Count 345, MPV 8.6, Neut % (Auto) 75.3, Lymph % (Auto) 11.2, Storey % (Auto) 10.6 H, Eos % (Auto) 1.4, Baso % (Auto) 0.6, Neut # (Auto) 7.9 H, Lymph # (Auto) 1.2, Storey # (Auto) 1.1 H, Eos # (Auto) 0.2, Baso # (Auto) 0.1, PT 10.6, INR 0.95, Sodium 138, Potassium 3.5, Chloride 104, Carbon Dioxide 25, Anion Gap 12.5, BUN 10, Creatinine 1.00, Estimated Creat Clear 128, Estimated GFR 75, Est GFR ( Amer) 90, Glucose 117 H, Calcium 9.2, Total Bilirubin 0.4, AST 35, ALT 25, Alkaline Phosphatase 89, Total Protein 6.6, Albumin 4.0, Globulin 2.6, Albumin/Globulin Ratio 1.5 04/14/25 03:00 04/14/25 03:00 Orders (Tests/Meds): ED MEDICATIONS Generic Name Dose Route Start Last Admin Trade Name Freq PRN Reason Stop Dose Admin Lidocaine 1 each 04/14/25 05:01 Lidocaine 5% Transdermal Patch TD 04/14/25 05:02 ONCE ONE Discontinued Medications Generic Name Dose Route Start Last Admin Trade Name Freq PRN Reason Stop Dose Admin Iopamidol 80 ml 04/14/25 04:39 04/14/25 04:40 Iopamidol-370 (76%);100ml Bottle IV 04/14/25 04:40 80 ml ONCE ONE Administration Sodium Chloride 50 ml 04/14/25 04:40 04/14/25 04:40 0.9 % Sodium Chloride 50 Ml Vial IV 04/14/25 04:41 50 ml ONCE ONE Administration Sodium Chloride 10 ml 04/14/25 04:40 04/14/25 04:40 Sodium Chloride 0.9% 10ml Syr (Rad Only) IV 04/14/25 04:41 10 ml ONCE ONE Administration ORDERS Category Date Time Status CT angio abd/pel - TRAUMA Stat Cat Scan 04/14/25 02:[address] angio chest - dissection Stat Cat Scan 04/14/25 02:[address] cervical spine wo con Stat Cat Scan 04/14/25 02:[address] head/brain wo con Stat Cat Scan 04/14/25 02:10 Completed Elbow XR right minimum 3 views [XR elbow RT min 3V] Exams 04/14/25 03:31 Completed Stat XR shoulder RT min 2V Stat Exams 04/14/25 03:52 Completed CBC w/Auto Diff [Complete Blood Count Auto Diff] Stat Lab 04/14/25 03:00 Completed CMP [Comprehensive Metabolic Panel] Stat Lab 04/14/25 03:00 Completed PT INR [Prothrombin Time INR] Stat Lab 04/14/25 03:00 Completed Medical Decision Narrative: In summary, this 64-year-old male with history of bipolar, degenerative disc disease, COPD, radiculopathy presents to the emergency department today with pain in the right arm and right ribs after fall onto the right side. On initial evaluation patient is hemodynamically stable, afebrile, GCS 15, no neurologic deficits, airway intact, bilateral breath sounds present, benign abdominal exam, mild right lower lateral rib tenderness without deformity or crepitus, no bruising, right upper extremity with mild tenderness near the right elbow and right shoulder with full range of motion, no deformity or other evidence of traumatic injury. Neurovascularly intact throughout. Differential diagnosis includes but is not limited to intracranial bleed, C-spine injury, rib fracture, intrathoracic injury, intra-abdominal injury, right upper extremity fracture, dislocation, or other osseous injury. Based on these concerns, I ordered basic hematologic and serum labs and CT imaging. Labs reviewed by me demonstrate no leukocytosis, mild anemia nonactionable at this time, normal platelets, PT/INR normal, CMP nonactionable. CT head personally interpreted does not demonstrate acute intracranial abnormality, see radiology read for final interpretation. CT C-spine, CTA chest, abdomen, pelvis were also personally interpreted I do not appreciate acute traumatic injury, specifically no pneumothorax or hemothorax, no rib fractures, no intra-abdominal bleeding. See radiology reads for final interpretation. On reassessment patient is well-appearing. He is appropriate for discharge and comfortable with this plan. Lidocaine patch applied to the right ribs. Lidocaine patches prescribed. Patient was given instructions on symptomatic management, follow up instructions, and return precautions for the emergency department. Patient indicated understanding and was discharged in stable condition. Critical Care Critical Care Time Critical Care Time: No
[2025-04-14] MEDS: 0.9 % SODIUM CHLORIDE 50 ML VIAL IV (04:40)
[2025-04-14] MEDS: SODIUM CHLORIDE 0.9% 10ML SYR (RAD ONLY) 10 ML IV (04:40)
[2025-04-14] MEDS: IOPAMIDOL-370 (76%);100ML BOTTLE 80 ML IV (04:40)
[2025-04-14] MEDS: LIDOCAINE 5% TRANSDERMAL PATCH 1 EACH TD (05:32)
[2025-04-14 05:34] VITALS: BP 120/52; PULSE 65; RESP 15; TEMP 36.6; O2SAT 98
== END 2025-04-14 05:35 | disposition home or self-care (01) ==
PROVIDERS: Emergency Provider Emergency Medicine
DX: R07.81 Pleurodynia (principal); W19.XXXA Unspecified fall, initial encounter
CPT/HCPCS: 70450; 71275; 72125; 73030; 73080; 74174; 80053; 85025; 85610; 99284; 99285; Q9967

== ENCOUNTER 2025-05-01 13:42 | Outpatient (CLI) | payer MEDICARE, SELFPAY ==
--- OUTSIDE RECORDS SUMMARY | 2025-05-01 13:48 | XMS_ITS | Encounter Summary ---
Author Organization Healthcare Address [address] [place] [address] Care Team Providers Care Director Of Promotions Name Role Phone Savage Readron MD Primary Care Provider [phone] Clayton James MD Unavailable [phone] Reason for Visit * Reason Comments Med Refill Encounter Details Date Type Department Care Team (Late st Contact Info) Description 12/12/2024 Refill [place] [facility] [address] [place] [address] Clayton James MD [address] [place] [address] Degeneration of intervertebral disc of [...] 12/12/2024 8:12 AM EDT Tk request #: [id number] reviewed and appropriate. Refill sent to the [...] of this encounter Care Teams Director Of Promotions Relationship Specialty Start Date End Date Savage Reardon MD [address] [place] [address] PCP - General 12/13/20 Clayton James MD [address] [place] [address] Surgeon Neurosurgery 09/22/24 documented as of this encounter
--- OUTSIDE RECORDS SUMMARY | 2025-05-01 13:48 | XMS_ITS | Encounter Summary ---
Author Organization Healthcare Address [address] [place] [address] Care Team Providers Care Senior Engineer Name Role Phone Savage Reardon MD Primary Care Provider [phone] Clayton James MD Unavailable [phone] Reason for Visit * Reason Comments Med Refill Encounter Details Date Type Department Care Team (Late st Contact Info) Description 02/09/2025 Refill [place] [facility] [address] [place] [address] Daniel Grajeda MD [address] [place] [address] Degeneration of intervertebral disc of [...] documented as of this encounter Care Teams Senior Engineer Relationship Specialty Start Date End Date Savage Reardon MD [address] [place] [address] PCP - General 12/13/20 Clayton James MD [address] [place] [address] Surgeon Neurosurgery 09/22/24 documented as of this encounter
--- OUTSIDE RECORDS SUMMARY | 2025-05-01 13:48 | XMS_ITS | Encounter Summary ---
Author Organization Healthcare Address [address] [place] [address] Care Team Providers Care Combination Technician Name Role Phone Savage Reardon MD Primary Care Provider [phone] Clayton James MD Unavailable [phone] Reason for Visit * Reason Comments Med Refill Encounter Details Date Type Department Care Team (Late st Contact Info) Description 03/21/2025 Refill [place] [facility] [address] [place] [address] Clayton James MD [address] [place] [address] Degeneration of intervertebral disc of [...] documented as of this encounter Care Teams Combination Technician Relationship Specialty Start Date End Date Savage Reardon MD [address] [place] [address] PCP - General 12/13/20 Clayton James MD [address] [place] [address] Surgeon Neurosurgery 09/22/24 documented as of this encounter
--- OUTSIDE RECORDS SUMMARY | 2025-05-01 13:48 | XMS_ITS | Clinical Summary ---
Author Organization [facility] Address [address] [place] [address] Care Team Providers Care Hvac Sales Engineer Name Role Phone Savage Reardon MD Primary Care Provider [phone] Clayton James MD Unavailable [phone] Allergies Active Allergy Reactions Criticality Noted [...] Type Department Care Team Description 03/21/2025 Refill [place] [facility] [id number], [address] [place] [phone] Clayton James MD Degeneration of intervertebral disc of lumbar region with discogenic back pain and lower extremity pain; Chronic bilateral low back pain with right-sided sciatica 02/09/2025 Refill [facility] [address], 1st [place] [address] Gris Sylvester PA Degeneration of intervertebral disc of lumbar region with discogenic back pain and lower extremity pain (Primary Dx); Chronic bilateral low back pain with right-sided sciatica 02/09/2025 Refill [facility] [address], 1st [place] [phone] Daniel Grajeda MD Degeneration of intervertebral disc [...] 2008 UKY-Zoster Vaccines (1 of 2) 2008 [id number] Vaccine (1 - 20 24-25 season) 2025 [...] this topic Insurance [employer] MEDICARE Care Teams Hvac Sales Engineer Relationship Specialty Start Date End Date Savage Reardon MD [address] [place] [address] PCP - General 12/13/20 Clayton James MD [address] [place] [address] Surgeon Neurosurgery 09/22/24
--- OUTSIDE RECORDS SUMMARY | 2025-05-01 13:48 | XMS_ITS | Encounter Summary ---
Author Organization Healthcare Address [address] [place] [address] Care Team Providers Care Vp Emerging Media Name Role Phone Savage Reardon MD Primary Care Provider Clayton James MD Unavailable [phone] Encounter Details Date Type Department Care Team (Late st Contact Info) Description 05/04/2024 Orders Only External Location [address] [place] [address] Savage Reardon MD [address] [place] [address] Social History Tobacco Use Types [...] on filedocumented in this encounter Care Teams Vp Emerging Media Relationship Specialty Start Date End Date Savage Reardon MD [address] [place] [address] PCP - General 12/13/20 Clayton James MD [address] [place] [address] Surgeon Neurosurgery 09/22/24 documented as of this encounter
--- OUTSIDE RECORDS SUMMARY | 2025-05-01 13:48 | XMS_ITS | Encounter Summary ---
[facility] Address [address] [place] [address] Care Team Providers Care College Or University Department Head Name Role Phone Jennifer Newton APRN Primary Care Provid er Encounter Details Date Type Department Care Team (Late st Contact Info) Description 01/15/2025 Results Follow-Up [facility] RHEUMATOLOGY 330 [facility] 100 [place] [address] Valeria Machuca APRN 330 [facility] 100 [place] [address] Social History Tobacco Use Types [...] Description 05/14/2025 2:30 PM EDT Office Visit [facility] RHEUMATOLOGY 330 [facility] 100 [place] [phone] Valeria Machuca APRN 330 [facility] 100 [place] [address] documented as of this encounter Goals Goal Patient Goal Type Associated Problems Recent Progress Patient-Stated? Author Specialty Pharmacy General Goal General No Alvin Maier, PharmD Note: Reduce number of flares and pain score. documented as of this encounter Visit Diagnoses Not on filedocumented in this encounter Care Teams College Or University Department Head Relationship Specialty Start Date End Date Jennifer Newton APRN 1210 [facility] [address] [facility] [address] [place] [address] PCP - General Family Medicine 03/20/24 documented as of this encounter
--- OUTSIDE RECORDS SUMMARY | 2025-05-01 13:48 | XMS_ITS | Encounter Summary ---
Author Organization Healthcare Address [address] [place] [address] Care Team Providers Care Supervisor Electric Name Role Phone Savage Reardon MD Primary Care Provider [phone] Clayton James MD Unavailable [phone] Reason for Visit * Reason Comments Med Refill Encounter Details Date Type Department Care Team (Late st Contact Info) Description 11/19/2024 Refill [place] [facility] [address], [address] [place] [address] Clayton James MD [address] [place] [address] Degeneration of intervertebral disc of [...] documented as of this encounter Care Teams Supervisor Electric Relationship Specialty Start Date End Date Savage Reardon MD [address] [place] [address] PCP - General 12/13/20 Clayton James MD [address] [place] [address] Surgeon Neurosurgery 09/22/24 documented as of this encounter
--- OUTSIDE RECORDS SUMMARY | 2025-05-01 13:48 | XMS_ITS | Encounter Summary ---
[facility] Address [address] [place] [address] Care Team Providers Care Machine I Engraver Name Role Phone Jennifer Newton APRN Primary Care Provid er Reason for Visit * Reason Comments Med Refill Encounter Details Date Type Department Care Team (Late st Contact Info) Description 03/30/2025 Refill [facility] RHEUMATOLOGY 330 [facility] 100 [place] [address] Damien Cosme, [address] [place] [phone] High risk medication use Social History Tobacco [...] Description 05/14/2025 2:30 PM EDT Office Visit [facility] RHEUMATOLOGY [address] [facility] [address] [place] [phone] Valeria Machuca APRN 330 [facility] 100 [place] [address] documented as of this encounter Goals Goal Patient Goal Type Associated Problems Recent Progress Patient-Stated? Author Specialty Pharmacy General Goal General No Alvin Maier, Namrata Note: Reduce number of flares and pain score. documented as of this encounter Visit Diagnoses Diagnosis High risk medication use documented in this encounter Care Teams Machine I Engraver Relationship Specialty Start Date End Date Jennifer Newton APRN 1210 [facility] [address] [place] [address] PCP - General Family Medicine 03/20/24 documented as of this encounter
--- OUTSIDE RECORDS SUMMARY | 2025-05-01 13:48 | XMS_ITS ---
Author Organization [facility] Address [address] [place] [address] Care Team Providers Care Filter Tank Tender Helper Head Name Role Phone Jennifer Newton APRN Primary Care Provid er Rheumatology - External Fill Status:Enrolled (Active) Start date:01/16/2025 Enrollment date:01/16/2025 Enrollment reason:Identified as being on target medication Current support & services provided:Benefits Investigation, External Pharmacy Dispensing Linked medications:Adalimumab (Active) Linked problems:Seropositive rheumatoid arthritis (Active) Overview Maddi KAUFFMAN approved through 08.01.25 Continued Care and Services Coordination
--- OUTSIDE RECORDS SUMMARY | 2025-05-01 13:48 | XMS_ITS | Clinical Summary ---
Author Organization [facility] Address [address] [place] [address] Care Team Providers Care Managing Editor Name Role Phone Jennifer Newton APRN Primary [...] where they will dissolve, then swallow Active Cholecalciferol 125 MCG (5000 UT) tablet Take 1 tablet by mouth Daily. 4 Active amLODIPine (NORVASC) 5 MG tablet Take 1 tablet by mouth Daily. 4 Active clopidogrel (PLAVIX) 75 MG tablet Take 1 tablet by mouth Daily. 4 Active isosorbide mononitrate (IMDUR) 60 MG 24 hr tablet Take 1 tablet by mouth Daily. 4 Active potassium chloride 10 MEQ CR tablet Take 1 tablet by mouth Daily. 4 Active ranolazine (RANEXA) 1000 MG 12 hr tablet Take by mouth Every 12 (Twelve) Hours. 4 Active Adalimumab (Humira, 2 Pen,) 40 MG/0.4ML Auto-injector Kit Inject 1 Pen under the skin into the appropriate area as directed Every 14 (Fourteen) Days. 2 each 5 5 Active Lumateperone Tosylate (Caplyta) 42 MG capsule Take 1 capsule by mouth Daily. 5 Active methocarbamol (ROBAXIN) 750 MG tablet Take 1 tablet by mouth 3 times a day. 5 Active nicotine polacrilex (NICORETTE) 2 MG gum Chew 1 each As Needed. 5 Active potassium chloride (KLOR-CON M10) 10 MEQ CR tablet Take 1 tablet by mouth Daily. 5 Active traZODone (DESYREL) 100 MG tablet Take 1 tablet by mouth every night at bedtime. 5 Active folic acid (FOLVITE) 1 MG tablet TAKE TWO TABLETS BY MOUTH EVERY DAY EXCEPT THE DAY you take mETHOTREXATE 30 tablet 5 5 Active methotrexate 2.5 MG tabletIndicatio ns:High risk medication use Take 8 tablets by mouth 1 (One) Time Per Week. 40 tablet 3 5 Active Active Problems Problem Noted Date Diagnosed Date [...] normal, DS DNA normal, Ribosomal P normal, PERSONAL LINES UNDERWRITER normal, SCL 70 normal, Morrow normal, SSA [...] normal, DS DNA normal, Ribosomal P normal, PERSONAL LINES UNDERWRITER normal, SCL 70 normal, Morrow normal, SSA [...] normal, DS DNA normal, Ribosomal P normal, PERSONAL LINES UNDERWRITER normal, SCL 70 normal, Morrow normal, SSA [...] Type Department Care Team Description 03/30/2025 Refill [facility] RHEUMATOLOGY [address] [place] [phone] Damien Cosme, High risk medication use 03/10/2025 Refill [facility] RHEUMATOLOGY [address] [place] [phone] Damien Cosme, DO from Last 3 Months Social History Tobacco [...] Description 05/14/2025 2:30 PM EDT Office Visit [facility] RHEUMATOLOGY [address] [address] Valeria Machuca APRN 330 [facility] 100 [place] [address] Health Maintenance Due Date Last Done Comments [...] ZOSTER VACCINE (2 of 2) 03/29/2024 02/02/2024 INFLUENZA VACCINE 03/02/2025 05/16/2024, , 07/05/2017 COVID-19 Vaccine ( season) 2025, 01/11/2021 HEPATITIS C SCREENING Completed 09/15/2024 Goals Goal Patient Goal Type Associated Problems Recent Progress Patient-Stated? Author Specialty Pharmacy General Goal General No Alvin Maier, PharmD Note: Reduce number of flares and pain score. Procedures Procedure Name Priority Date/Time Associated Diagnosis Comments HEPATITIS PANEL, ACUTE Routine 09/15/2024 2:32 PM EST Seropositive rheumatoid arthritis High risk medication use Primary osteoarthritis involving multiple joints Fatigue, unspecified type from Last 3 Months or Most Recently Relevant to Health Maintenance Results * Hepatitis Panel, Acute (09/15/2024 2:32 PM EST) Hepatitis B Surface Ag Non-Reacti ve Non-Reacti ve 09/15/2024 11:42 PM EST [facility] Hep A IgM Non-Reacti ve Non-Reacti ve 09/15/2024 11:42 PM EST [facility] Hep B C IgM Non-Reacti ve Non-Reacti ve 09/15/2024 11:42 PM EST [facility] Hepatitis C Ab Non-Reacti ve Non-Reacti ve 09/15/2024 11:42 PM EST [facility] Blood Venipuncture / Unknown 09/15/2024 2:32 PM EST 09/15/2024 2:33 PM EST Narrative [facility] - 09/15/2024 11:42 PM EST Results may be falsely decreased if patient taking Biotin. us Damien Cosme DO LAB BLOOD ORDERABLES F inal Result [facility]
[address] [place] [address], from Last 3 Months or Most Recently Relevant to Health Maintenance Insurance [facility] MEDICARE ADVANTAGE HMO Care Teams Managing Editor Relationship Specialty Start Date End Date Jennifer Newton APRN [address] [facility] [address] [place] [address] PCP - General Family Medicine 03/20/24
--- OUTSIDE RECORDS SUMMARY | 2025-05-01 13:48 | XMS_ITS | Encounter Summary ---
[facility] Address [address] [place] [address] Care Team Providers Care Compensation Supervisor Name Role Phone Jennifer Newton APRN Primary Care Provid er Reason for Visit * Reason Comments Med Refill Encounter Details Date Type Department Care Team (Late st Contact Info) Description 03/10/2025 Refill [facility] RHEUMATOLOGY [address] [address] Damien Cosme, [address] [place] [phone] Social History Tobacco Use Types Packs/Day Years [...] Description 05/14/2025 2:30 PM EDT Office Visit [facility] RHEUMATOLOGY 330 [facility] [address] [place] [phone] Valeria Machuca APRN 330 [facility] 100 [place] [address] documented as of this encounter Goals Goal Patient Goal Type Associated Problems Recent Progress Patient-Stated? Author Specialty Pharmacy General Goal General No Alvin Maier, JonatanD Note: Reduce number of flares and pain score. documented as of this encounter Visit Diagnoses Not on filedocumented in this encounter Care Teams Compensation Supervisor Relationship Specialty Start Date End Date Jennifer Newton APRN 1210 [facility] [address] [facility] [address] PCP - General Family Medicine 03/20/24 documented as of this encounter
[2025-05-01 13:58] LABS: Hematocrit 34.3 % (42.0-52.0); Hemoglobin 11.7 g/dL (14.1-18.0); Immature Granulocytes % 0.5 %; Mean Corpuscular HGB Conc 34.1 g/dL (31.8-35.4); Mean Corpuscular Hemoglobin 35.9 pg (27.0-31.2); Mean Corpuscular Volume 105.2 fl (80-94); Nucleated Red Blood Cells % 0 %; Platelet Count 275 K/mm3 (142-424); Red Blood Count 3.26 M/mm3 (4.60-6.20); Red Cell Distribution Width-SD 52.9 fL; White Blood Count 9.9 K/mm3 (4.8-10.8)
[2025-05-01 14:11] LABS: Alanine Aminotransferase 33 U/L (12-78); Albumin Level 4.0 g/dl (3.5-5.0); Alkaline Phosphatase 111 U/L (38-126); Anion Gap 13.6 mEq/L (5-15); Aspartate Amino Transferase 33 U/L (17-59); Bilirubin,Direct 0.3 mg/dl (0.0-0.4); Bilirubin,Indirect 0.5 mg/dL (0.0-0.9); Bilirubin,Total 0.8 mg/dl (0.2-1.3); Bilirubin,Unconjugated 0.5 mg/dL (0.0-1.1); Blood Urea Nitrogen 23 mg/dl (9-20); Calcium 9.0 mg/dl (8.4-10.2); Carbon Dioxide 26 mmol/L (22.0-30.0); Chloride 101 mmol/L (98-107); Cholesterol 145 mg/dl (140-200); Creatinine,Serum 1.00 mg/dl (0.66-1.25); Estimated Glomerular Filt Rate 75 ml/min (>60); GFR (African American) 90 ML/MIN (>60); Glucose 125 mg/dl (74-100); HDL Cholesterol 42 mg/dl (40-60); Magnesium 2.3 mg/dl (1.6-2.3); Potassium 4.6 mmoL/L (3.5-5.1); Sodium 136 mmol/L (136-145); Total Protein,Serum 6.3 g/dl (6.3-8.2); Triglycerides 219 mg/dl (30-150)
[2025-05-01 14:17] LABS: D-Dimer 0.55 ug/mL (0.0-0.5)
[2025-05-01 14:37] LABS: Free T4 (Free Thyroxine) 0.67 ng/dl (0.78-2.19)
[2025-05-01 14:40] LABS: Thyroid Stimulating Hormone 1.03 uIU/mL (0.465-4.68)
== END 2025-05-01 23:59 | disposition home or self-care (01) ==
LOC: LAB 13:43
PROVIDERS: PCP Nurse Practitioner Family; Visit Provider Internal Medicine
DX: I25.10 Atherosclerotic heart disease of native coronary artery without angina pectoris (principal); I10 Essential (primary) hypertension; E78.5 Hyperlipidemia, unspecified
CPT/HCPCS: 36415; 80048; 80061; 80076; 83735; 84439; 84443; 85025; 85378

== ENCOUNTER 2025-05-03 09:26 | Outpatient (CLI) | payer MEDICARE, SELFPAY ==
--- OUTSIDE RECORDS SUMMARY | 2025-05-03 09:30 | XMS_ITS | Encounter Summary ---
Author Organization [facility] Address [address] [place] [address] Care Team Providers Care Aircraft Power Plant Assembler Name Role Phone Savage Reardon MD Primary Care Provider [phone] Clayton James MD Unavailable [phone] Reason for Visit * Reason Comments Med Refill Encounter Details Date Type Department Care Team (Late st Contact Info) Description 03/21/2025 Refill [place] [facility] [address] 1[address] [place] [address] Clayton James MD [address] [place] [address] Degeneration of intervertebral disc of [...] documented as of this encounter Care Teams Aircraft Power Plant Assembler Relationship Specialty Start Date End Date Savage Reardon MD [address] [place] [address] PCP - General 12/13/20 Clayton James MD [address] [place] [address] Surgeon Neurosurgery 09/22/24 documented as of this encounter
--- OUTSIDE RECORDS SUMMARY | 2025-05-03 09:30 | XMS_ITS | Encounter Summary ---
[facility] Organization [facility] Address [address] [place] [address] Care Team Providers Care Head Of Loss Prevention Name Role Phone Jennifer Newton APRN Primary Care Provid er Reason for Visit * Reason Comments Med Refill Encounter Details Date Type Department Care Team (Late st Contact Info) Description 03/10/2025 Refill [facility] RHEUMATOLOGY [address] [address] Damien Cosme, [address] [place] [phone] Social History Tobacco Use Types Packs/Day Years Used Date Smoking Tobacco: Every Day Cigarettes 1 53.8 Started: 1974 Smokeless Tobacco: Current Alcohol Use [...] Visit [facility] RHEUMATOLOGY [address] [facility] [address] [place] [phone] Valeria Machuca APRN 330 [facility] 100 [place] [address] documented as of this encounter Goals Goal Patient Goal Type Associated Problems Recent Progress Patient-Stated? Author Specialty Pharmacy General Goal General No Alvin Maier, JonatanD Note: Reduce number of flares and pain score. documented as of this encounter Visit Diagnoses Not on filedocumented in this encounter Care Teams Head Of Loss Prevention Relationship Specialty Start Date End Date Jennifer Newton APRN 1210 [facility] [address] [facility] [address] PCP - General Family Medicine 03/20/24 documented as of this encounter
--- OUTSIDE RECORDS SUMMARY | 2025-05-03 09:31 | XMS_ITS | Encounter Summary ---
Author Organization Healthcare Address [address] [place] [address] Care Team Providers Care Agricultural Education Teacher Name Role Phone Savage Reardon MD Primary Care Provider [phone] Clayton James MD Unavailable [phone] Reason for Visit * Reason Comments Med Refill Encounter Details Date Type Department Care Team (Late st Contact Info) Description 11/19/2024 Refill [place] [facility] [address], [address] [place] [address] Clayton James MD [address] [place] [address] Degeneration of intervertebral disc of [...] documented as of this encounter Care Teams Agricultural Education Teacher Relationship Specialty Start Date End Date Savage Reardon MD [address] [place] [address] PCP - General 12/13/20 Clayton James MD [address] [place] [address] Surgeon Neurosurgery 09/22/24 documented as of this encounter
--- OUTSIDE RECORDS SUMMARY | 2025-05-03 09:31 | XMS_ITS | Encounter Summary ---
Author Organization Healthcare Address [address] [place] [address] Care Team Providers Care Medical Territory Manager Name Role Phone Savage Reardon MD Primary Care Provider [phone] Clayton James MD Unavailable [phone] Reason for Visit * Reason Comments Med Refill Encounter Details Date Type Department Care Team (Late st Contact Info) Description 02/09/2025 Refill [place] [facility] [address], 1[address] [place] [address] Daniel Grajeda MD [address] [place] [address] Degeneration of intervertebral disc of [...] documented as of this encounter Care Teams Medical Territory Manager Relationship Specialty Start Date End Date Savage Reardon MD [address] [place] [address] PCP - General 12/13/20 Clayton James MD [address] [place] [address] Surgeon Neurosurgery 09/22/24 documented as of this encounter
--- OUTSIDE RECORDS SUMMARY | 2025-05-03 09:31 | XMS_ITS | Encounter Summary ---
[facility] [address] [place] [address] Care Team Providers Care Rib Puller Name Role Phone Jennifer Newton APRN Primary Care Provid er Reason for Visit * Reason Comments Med Refill Encounter Details Date Type Department Care Team (Late st Contact Info) Description 03/30/2025 Refill [facility] RHEUM[facility] 330 [facility] 100 [place] [address] Damien Cosme, [address] [place] [phone] High risk medication use Social History Tobacco [...] PM EDT Office Visit [facility] [address] [facility] [address] [place] [phone] Valeria Machuca APRN [address] [facility] 100 [place] [address] documented as of this encounter Goals Goal Patient Goal Type Associated Problems Recent Progress Patient-Stated? Author Specialty Pharmacy General Goal General No Alvin Maier, Namrata Note: Reduce number of flares and pain score. documented as of this encounter Visit Diagnoses Diagnosis High risk medication use documented in this encounter Care Teams Rib Puller Relationship Specialty Start Date End Date Jennifer Newton APRN 1210 [facility] [address] [place] [address] PCP - General Family Medicine 03/20/24 documented as of this encounter
--- OUTSIDE RECORDS SUMMARY | 2025-05-03 09:31 | XMS_ITS | Encounter Summary ---
Author Organization Healthcare Address [address] [place] [address] Care Team Providers Care Runway Model Name Role Phone Savage Reardon MD Primary Care Provider [phone] Clayton James MD Unavailable [phone] Encounter Details Date Type Department Care Team (Late st Contact Info) Description 05/04/2024 Orders Only External Location [address] [place] [address] Savage Reardon MD [address] [place] [address] Social History Tobacco Use Types [...] on filedocumented in this encounter Care Teams Runway Model Relationship Specialty Start Date End Date Savage Reardon MD [address] [place] [address] PCP - General 12/13/20 Clyaton James MD [address] [place] [address] Surgeon Neurosurgery 09/22/24 documented as of this encounter
--- OUTSIDE RECORDS SUMMARY | 2025-05-03 09:31 | XMS_ITS | Clinical Summary ---
Author Organization [facility] Address [address] [place] [address] Care Team Providers Care Marine Equipment Preservation Inspector Name Role Phone Jennifer Newton APRN Primary [...] normal, DS DNA normal, Ribosomal P normal, SOFTWARE TEST MANAGER normal, SCL 70 normal, Morrow normal, SSA [...] normal, DS DNA normal, Ribosomal P normal, SOFTWARE TEST MANAGER normal, SCL 70 normal, Morrow normal, SSA [...] normal, DS DNA normal, Ribosomal P normal, SOFTWARE TEST MANAGER normal, SCL 70 normal, Morrow normal, SSA [...] Type Department Care Team Description 03/30/2025 Refill [facility] RHEUMATOLOGY [address] [place] [phone] Damien Cosme, High risk medication use 03/10/2025 Refill [facility] RHEUMATOLOGY [address] [place] [phone] Damien Cosme, DO from Last 3 Months Social History Tobacco Use Types Packs/Day Years Used Date Smoking Tobacco: Every Day Cigarettes 1 53.8 Started: 1973 Smokeless Tobacco: Current Tobacco Cessation:Ready [...] EDT Office Visit [facility] RHE[facility] [address] [address] Valeria Machuca APRN 330 [facility] 100 [place] [address] Health Maintenance Due Date Last Done Comments [...] ve Non-Reacti ve 09/15/2024 11:42 PM EST [facility] Hep A IgM Non-Reacti ve Non-Reacti ve 09/15/2024 11:42 PM EST [facility] Hep B C IgM Non-Reacti ve Non-Reacti ve 09/15/2024 11:42 PM EST [facility] Hepatitis C Ab Non-Reacti ve Non-Reacti ve 09/15/2024 11:42 PM EST [facility] Blood Venipuncture / Unknown 09/15/2024 2:32 PM EST 09/15/2024 2:33 PM EST Narrative [facility] - 09/15/2024 11:42 PM EST Results may be falsely decreased if patient taking Biotin. us Damien Cosme DO LAB BLOOD ORDERABLES F inal Result [facility]
[address] [place] [address], from Last 3 Months or Most Recently Relevant to Health Maintenance Insurance [facility] MEDICARE ADVANTAGE HMO Care Teams Marine Equipment Preservation Inspector Relationship Specialty Start Date End Date Jennifer Newton APRN [address]10 [facility] [address] [place] [address] PCP - General Family Medicine 03/20/24
--- OUTSIDE RECORDS SUMMARY | 2025-05-03 09:31 | XMS_ITS ---
Author Organization [facility] Address [address] [place] [address] Care Team Providers Care Refrigeration Plant Cork Insulator Name Role Phone Jennifer Newton APRN Primary Care Provid er Rheumatology - External Fill Status:Enrolled (Active) Start date:01/16/2025 Enrollment date:01/16/2025 Enrollment reason:Identified as being on target medication Current support & services provided:Benefits Investigation, External Pharmacy Dispensing Linked medications:Adalimumab (Active) Linked problems:Seropositive rheumatoid arthritis (Active) Overview Maddi KAUFFMAN approved through 08.01.25 Continued Care and Services Coordination
--- OUTSIDE RECORDS SUMMARY | 2025-05-03 09:31 | XMS_ITS | Encounter Summary ---
[facility] Address [address] [place] [address] Care Team Providers Care Home Inspector Name Role Phone Jennifer Newton APRN Primary Care Provid er Encounter Details Date Type Department Care Team (Late st Contact Info) Description 01/15/2025 Results Follow-Up [facility]OLOGY 330 [facility] 100 [place] [address] Valeria Machuca APRN 330 [facility] [place] [address] Social History Tobacco Use Types [...] Office Visit [facility]OLOGY 330 [facility] 100 [place] [phone] Valeria Machuca APRN 330 [facility] 100 [place] [address] documented as of this encounter Goals Goal Patient Goal Type Associated Problems Recent Progress Patient-Stated? Author Specialty Pharmacy General Goal General No Alvin Maier, PharmD Note: Reduce number of flares and pain score. documented as of this encounter Visit Diagnoses Not on filedocumented in this encounter Care Teams Home Inspector Relationship Specialty Start Date End Date Jennifer Newton APRN 1210 [facility] [address] [facility] 2A [place] [address] PCP - General Family Medicine 03/20/24 documented as of this encounter
--- OUTSIDE RECORDS SUMMARY | 2025-05-03 09:31 | XMS_ITS | Clinical Summary ---
Author Organization [facility] Address [address] [place] [address] Care Team Providers Care Greenhouse Florist Name Role Phone Savage Readron MD Primary Care Provider [phone] Clayton James MD Unavailable [phone] Allergies Active Allergy Reactions Criticality Noted [...] Type Department Care Team Description 03/21/2025 Refill [place] [address], [address] [place] [phone] Clayton James MD Degeneration of intervertebral disc of lumbar region with discogenic back pain and lower extremity pain; Chronic bilateral low back pain with right-sided sciatica 02/09/2025 Refill [facility] [address], 1st [place] [address] Gris Sylvester PA Degeneration of intervertebral disc of lumbar region with discogenic back pain and lower extremity pain (Primary Dx); Chronic bilateral low back pain with right-sided sciatica 02/09/2025 Refill [facility] [address], 1st [place] [phone] Daniel Grajeda MD Degeneration of intervertebral disc [...] 2008 UKY-Zoster Vaccines (1 of 2) 2008 [id number] Vaccine (1 - 20 24-25 season) 2025 [...] this topic Insurance [employer] Care Teams Greenhouse Florist Relationship Specialty Start Date End Date Savage Reardon MD [address] [place] [address] PCP - General 12/13/20 Clayton James MD [address] [place] [address] Surgeon Neurosurgery 09/22/24
--- OUTSIDE RECORDS SUMMARY | 2025-05-03 09:31 | XMS_ITS | Encounter Summary ---
Author Organization Healthcare Address [address] [place] [address] Care Team Providers Care Horticultural Specialty Grower Field Name Role Phone Savage Reardon MD Primary Care Provider [phone] Clayton James MD Unavailable [phone] Reason for Visit * Reason Comments Med Refill Encounter Details Date Type Department Care Team (Late st Contact Info) Description 12/12/2024 Refill [place] [facility] [address], [address]st [place] [address] Clayton James MD [address] [place] [address] Degeneration of intervertebral disc of [...] 12/12/2024 8:12 AM EDT Tk request #: [id number] reviewed and appropriate. Refill sent to the [...] documented as of this encounter Care Teams Horticultural Specialty Grower Field Relationship Specialty Start Date End Date Savage Reardon MD [address] [place] [address] PCP - General 12/13/20 Clayton James MD [address] [place] [address] Surgeon Neurosurgery 09/22/24 documented as of this encounter
--- NOTE | 2025-05-03 09:36 | US_ITS ---
FINAL REPORT CLINICAL HISTORY: rt inguinal pain FINDINGS: Limited sonographic images were obtained of the soft tissues in the right inguinal region at the area of reported abnormality. No abnormality identified on today's exam. IMPRESSION: Unremarkable exam. Reviewed, Interpreted and Dictated by Quincy Tate MD Transcribed by Imani Voss Authenticated and [facility]
== END 2025-05-03 23:59 | disposition home or self-care (01) ==
LOC: RAD 09:26
PROVIDERS: PCP Internal Medicine Adolescent Medicine; Visit Provider Internal Medicine Adolescent Medicine
DX: R10.31 Right lower quadrant pain (principal)
CPT/HCPCS: 76882

== ENCOUNTER 2025-05-08 14:44 | Outpatient (CLI) | payer MEDICARE, SELFPAY ==
--- OUTSIDE RECORDS SUMMARY | 2025-05-08 14:49 | XMS_ITS | Clinical Summary ---
Author Organization [facility] Address [address] [place] [address] Care Team Providers Care Bacon Stringer Name Role Phone Savage Reardon MD Primary Care Provider [phone] Clayton James MD Unavailable [phone] Allergies Active Allergy Reactions Criticality Noted [...] Type Department Care Team Description 03/21/2025 Refill [place] [address], [address] [place] [phone] Clayton James MD Degeneration of intervertebral disc of lumbar region with discogenic back pain and lower extremity pain; Chronic bilateral low back pain with right-sided sciatica 02/09/2025 Refill [facility] [address], 1st [place] [address] Gris Sylvester PA Degeneration of intervertebral disc of lumbar region with discogenic back pain and lower extremity pain (Primary Dx); Chronic bilateral low back pain with right-sided sciatica 02/09/2025 Refill [facility] [address], 1st [place] [phone] Daniel Grajeda MD Degeneration of intervertebral disc [...] 2008 UKY-Zoster Vaccines (1 of 2) 2008 [id number] Vaccine (1 - 20 24-25 season) 2025 [...] this topic Insurance [employer] Care Teams Bacon Stringer Relationship Specialty Start Date End Date Savage Reardon MD [address] [place] [address] PCP - General 12/13/20 Clayton James MD [address] [place] [address] Surgeon Neurosurgery 09/22/24
--- OUTSIDE RECORDS SUMMARY | 2025-05-08 14:49 | XMS_ITS | Encounter Summary ---
Author Organization Healthcare Address [address] [place] [address] Care Team Providers Care Drum Maker Name Role Phone Savage Reardon MD Primary Care Provider [phone] Clayton James MD Unavailable [phone] Reason for Visit * Reason Comments Med Refill Encounter Details Date Type Department Care Team (Late st Contact Info) Description 02/09/2025 Refill [place] [facility] [address], [address] [place] [address] Daniel Grajeda MD [address] [place] [address] Degeneration of intervertebral disc of [...] documented as of this encounter Care Teams Drum Maker Relationship Specialty Start Date End Date Savage Reardon MD [address] [place] [address] PCP - General 12/13/20 Clayton James MD [address] [place] [address] Surgeon Neurosurgery 09/22/24 documented as of this encounter
--- OUTSIDE RECORDS SUMMARY | 2025-05-08 14:49 | XMS_ITS | Clinical Summary ---
Author Organization [facility] Address [address] [place] [address] Care Team Providers Care Assembler Tractor Name Role Phone Jennifer Newton APRN Primary [...] normal, DS DNA normal, Ribosomal P normal, FINAL INSTALLER INSPECTOR normal, SCL 70 normal, Morrow normal, [...] normal, DS DNA normal, Ribosomal P normal, FINAL INSTALLER INSPECTOR normal, SCL 70 normal, Morrow normal, [...] normal, DS DNA normal, Ribosomal P normal, FINAL INSTALLER INSPECTOR normal, SCL 70 normal, Morrow normal, [...] Type Department Care Team Description 03/30/2025 Refill [facility] RHEUMATOLOGY [address] [place] [phone] Damien Cosme, High risk medication use 03/10/2025 Refill [facility] [address] [place] [phone] Damien Cosme, DO from Last 3 Months [...] Description 05/14/2025 2:30 PM EDT Office Visit [facility] [address] [address] Valeria Machuca APRN 330 [facility] 100 [place] [address] Health Maintenance Due Date Last Done Comments [...] ve Non-Reacti ve 09/15/2024 11:42 PM EST [facility] Hep A IgM Non-Reacti ve Non-Reacti ve 09/15/2024 11:42 PM EST [facility] Hep B C IgM Non-Reacti ve Non-Reacti ve 09/15/2024 11:42 PM EST [facility] Hepatitis C Ab Non-Reacti ve Non-Reacti ve 09/15/2024 11:42 PM EST [facility] Blood Venipuncture / Unknown 09/15/2024 2:32 PM EST 09/15/2024 2:33 PM EST Narrative [facility] - 09/15/2024 11:42 PM EST Results may be falsely decreased if patient taking Biotin. us Damien Cosme DO LAB BLOOD ORDERABLES F inal Result [facility]
[address] [place] [address], from Last 3 Months or Most Recently Relevant to Health Maintenance Insurance [facility] MEDICARE ADVANTAGE HMO Care Teams Assembler Tractor Relationship Specialty Start Date End Date Jennifer Newton APRN [address] [facility] [address] [place] [address] PCP - General Family Medicine 03/20/24
--- OUTSIDE RECORDS SUMMARY | 2025-05-08 14:49 | XMS_ITS | Encounter Summary ---
[facility] Address [address] [place] [address] Care Team Providers Care Mechanical Assembler Name Role Phone Jennifer Newton APRN Primary Care Provid er Reason for Visit * Reason Comments Med Refill Encounter Details Date Type Department Care Team (Late st Contact Info) Description 03/10/2025 Refill [facility] RHEUM[facility] [address] [address] Damien Cosme, [address] [place] [id number] Social History Tobacco Use Types Packs/Day Years [...] Visit [facility] [address] [facility] [address] [place] [phone] Valeria Machuca APRN 330 [facility] 100 [place] [address] documented as of this encounter Goals Goal Patient Goal Type Associated Problems Recent Progress Patient-Stated? Author Specialty Pharmacy General Goal General No Alvin Maier, JonatanD Note: Reduce number of flares and pain score. documented as of this encounter Visit Diagnoses Not on filedocumented in this encounter Care Teams Mechanical Assembler Relationship Specialty Start Date End Date Jennifer Newton APRN 1210 [facility] [address] [facility] [place] [address] PCP - General Family Medicine 03/20/24 documented as of this encounter
--- OUTSIDE RECORDS SUMMARY | 2025-05-08 14:49 | XMS_ITS | Encounter Summary ---
Author Organization Healthcare Address [address] [place] [address] Care Team Providers Care Forest Fire Specialist Supervisor Name Role Phone Savage Reardon MD Primary Care Provider [phone] Clayton James MD Unavailable [phone] Reason for Visit * Reason Comments Med Refill Encounter Details Date Type Department Care Team (Late st Contact Info) Description 12/12/2024 Refill [place] [facility] [address], 1st [place] [address] Clayton James MD [address] [place] [address] Degeneration of intervertebral disc of [...] 12/12/2024 8:12 AM EDT Tk request #: [id number] reviewed and appropriate. Refill sent to the [...] documented as of this encounter Care Teams Forest Fire Specialist Supervisor Relationship Specialty Start Date End Date Savage Reardon MD [address] [place] [address] PCP - General 12/13/20 Clayton James MD [address] [place] [address] Surgeon Neurosurgery 09/22/24 documented as of this encounter
--- OUTSIDE RECORDS SUMMARY | 2025-05-08 14:49 | XMS_ITS ---
Author Organization [facility] Address [address] [place] [address] Care Team Providers Care Burn Out Tender Lace Name Role Phone Jennifer Newton APRN Primary Care Provid er Rheumatology - External Fill Status:Enrolled (Active) Start date:01/16/2025 Enrollment date:01/16/2025 Enrollment reason:Identified as being on target medication Current support & services provided:Benefits Investigation, External Pharmacy Dispensing Linked medications:Adalimumab (Active) Linked problems:Seropositive rheumatoid arthritis (Active) Overview Maddi KAUFFMAN approved through 08.01.25 Continued Care and Services Coordination
--- OUTSIDE RECORDS SUMMARY | 2025-05-08 14:49 | XMS_ITS | Encounter Summary ---
[facility] [address] [place] [address] Care Team Providers Care Software Licensing Executive Name Role Phone Jennifer Newton APRN Primary Care Provid er Encounter Details Date Type Department Care Team (Late st Contact Info) Description 01/15/2025 Results Follow-Up [facility] RHEUM[facility] 330 [facility] 100 [place] [address] Valeria Machuca APRN 330 [facility] 100 [place] [address] Social History Tobacco Use Types [...] Description 05/14/2025 2:30 PM EDT Office Visit [facility] 330 [facility] 100 [place] [phone] Valeria Machuca APRN 330 [facility] 100 [place] [address] documented as of this encounter Goals Goal Patient Goal Type Associated Problems Recent Progress Patient-Stated? Author Specialty Pharmacy General Goal General No Alvin Maier, PharmD Note: Reduce number of flares and pain score. documented as of this encounter Visit Diagnoses Not on filedocumented in this encounter Care Teams Software Licensing Executive Relationship Specialty Start Date End Date Jennifer Newton APRN 1210 [facility] [address] [facility] [address] [place] [address] PCP - General Family Medicine 03/20/24 documented as of this encounter
--- OUTSIDE RECORDS SUMMARY | 2025-05-08 14:49 | XMS_ITS | Encounter Summary ---
Author Organization Healthcare Address [address] [place] [address] Care Team Providers Care Director Of Strategic Partnerships Name Role Phone Savage Reardon MD Primary Care Provider [phone] Clayton James MD Unavailable [phone] Reason for Visit * Reason Comments Med Refill Encounter Details Date Type Department Care Team (Late st Contact Info) Description 03/21/2025 Refill [place] [facility] [address], [address] [place] [address] Clayton James MD [address] [place] [address] Degeneration of intervertebral disc of [...] of this encounter Care Teams Director Of Strategic Partnerships Relationship Specialty Start Date End Date Savage Reardon MD [address] [place] [address] PCP - General 12/13/20 Clayton James MD [address] [place] [address] Surgeon Neurosurgery 09/22/24 documented as of this encounter
--- OUTSIDE RECORDS SUMMARY | 2025-05-08 14:49 | XMS_ITS | Encounter Summary ---
[facility] [address] [place] [address] Care Team Providers Care Special Certificate Dictator Name Role Phone Jennifer Newton APRN Primary Care Provid er Reason for Visit * Reason Comments Med Refill Encounter Details Date Type Department Care Team (Late st Contact Info) Description 03/30/2025 Refill [facility] RHEUM[facility] 330 [facility] 100 [place] [address] Damien Cosme, [address] [place] [id number] High risk medication use Social History Tobacco [...] Description 05/14/2025 2:30 PM EDT Office Visit [facility] R[facility]UM[facility] [address] [facility] [address] [place] [phone] Valeria Machuca APRN 330 [facility] 100 [place] [address] documented as of this encounter Goals Goal Patient Goal Type Associated Problems Recent Progress Patient-Stated? Author Specialty Pharmacy General Goal General No Alvin Maier, Namrata Note: Reduce number of flares and pain score. documented as of this encounter Visit Diagnoses Diagnosis High risk medication use documented in this encounter Care Teams Special Certificate Dictator Relationship Specialty Start Date End Date Jennifer Newton APRN 1210 [facility] [address] [place] [address] PCP - General Family Medicine 03/20/24 documented as of this encounter
--- OUTSIDE RECORDS SUMMARY | 2025-05-08 14:49 | XMS_ITS | Encounter Summary ---
Author Organization Healthcare Address [address] [place] [address] Care Team Providers Care Breaker Operator Name Role Phone Savage Reardon MD Primary Care Provider [phone] Clayton James MD Unavailable [phone] Reason for Visit * Reason Comments Med Refill Encounter Details Date Type Department Care Team (Late st Contact Info) Description 11/19/2024 Refill [place] [facility] [address], [address] [place] [address] Clayton James MD [address] [place] [address] Degeneration of intervertebral disc of [...] documented as of this encounter Care Teams Breaker Operator Relationship Specialty Start Date End Date Savage Reardon MD [address] [place] [address] PCP - General 12/13/20 Clayton James MD [address] [place] [address] Surgeon Neurosurgery 09/22/24 documented as of this encounter
--- OUTSIDE RECORDS SUMMARY | 2025-05-08 14:49 | XMS_ITS | Encounter Summary ---
Author Organization Healthcare Address [address] [place] [address] Care Team Providers Care Bologna Maker Name Role Phone Savage Reardon MD Primary Care Provider Clayton James MD Unavailable [phone] Encounter Details Date Type Department Care Team (Late st Contact Info) Description 05/04/2024 Orders Only External Location [address] [place] [address] Savage Reardon MD [address] [place] [address] Social History Tobacco Use Types [...] on filedocumented in this encounter Care Teams Bologna Maker Relationship Specialty Start Date End Date Savage Reardon MD [address] [place] [address] PCP - General 12/13/20 Clayton James MD [address] [place] [address] Surgeon Neurosurgery 09/22/24 documented as of this encounter
--- NOTE | 2025-05-08 15:00 | CT_ITS ---
FINAL REPORT TECHNIQUE: Axial imaging of the chest is obtained after the administration of contrast. 3-D MIP reformatted images were also obtained and reviewed per PE protocol. This study was performed with techniques to keep radiation doses as low as reasonably achievable (ALARA). Individualized dose reduction techniques using automated exposure control or adjustment of mA and/or kV according to the patient's size were employed. CLINICAL HISTORY: D-dimer is elevated COMPARISON: 04/14/2025 FINDINGS: The pulmonary arteries are well filled. There is no evidence of pulmonary embolus. There is no aortic dissection. Heart size is normal. There is no mediastinal, hilar, or axillary lymphadenopathy. There is evidence of prior granulomatous disease. The lungs are otherwise clear. There is no pleural or pericardial effusion. Limited evaluation of the upper abdomen demonstrates a stable left adrenal nodule but is otherwise without acute abnormality. No acute osseous abnormality. IMPRESSION: No evidence of pulmonary embolism or aortic dissection. Reviewed, Interpreted and Dictated by Lela Stevens MD Transcribed by Iliana Flores Authenticated and [facility]
[2025-05-08] MEDS: SODIUM CHLORIDE 0.9% 10ML SYR (RAD ONLY) 10 ML IV (15:40)
[2025-05-08] MEDS: IOPAMIDOL-370 (76%);100ML BOTTLE 70 ML IV (15:40)
[2025-05-08] MEDS: 0.9 % SODIUM CHLORIDE 50 ML VIAL IV (15:40)
== END 2025-05-08 23:59 | disposition home or self-care (01) ==
LOC: RAD 14:45
PROVIDERS: PCP Nurse Practitioner Family; Visit Provider Internal Medicine
DX: I25.10 Atherosclerotic heart disease of native coronary artery without angina pectoris (principal); I10 Essential (primary) hypertension; R79.89 Other specified abnormal findings of blood chemistry
CPT/HCPCS: 71275; Q9967

== ENCOUNTER 2025-05-11 10:56 | Outpatient (CLI) | payer MEDICARE, SELFPAY ==
--- NOTE | 2025-05-11 11:00 | CA_ITS ---
APPROVED REPORT EXAM: Comprehensive 2D, Doppler, and color-flow Echocardiogram Technical Programs Manager: THANH Perla, RVS Ht: 5 ft 10 in Wt: 287lbs BSA: 2.43 BP: 115/56 mmHg Indications: CAD-10 stents, SOB, Smokr, HTN, CP, HLD 2D Dimensions Left Atrium 4.05 cm LA Volume 91.60 mL LA Volume Index 37.949375 mL/m2 (M/F) 16-34 M-Mode Dimensions RVDd 3.21 cm (0.9-2.6) LA Diam 4.66 cm (1.9-4.0) LVDd 5.08 cm (3.5-5.7) LVDs 4.28 cm (3.5-5.7) IVSd 1.07 cm (0.6-1.1) PWd 1.11 cm (0.6-1.1) EF (Teich) 33.00% FS 15.70% EDV (Teich) 122.70 mL ESV (Teich) 82.20 mL LV Diastology E Decel Time 210 (160-240 msec) E/A Ratio 1.17 MED A' 9.00 cm/s LAT A' 5.80 cm/s Aortic Valve PHILLIP Index 0.94 cm2/m2 AoV Peak Elpidio. 155.0 (50-130 cm/s) AO Peak GR. 9.60 mmHg AO Mean GR. 4.80 (<5 mmHg) AO VTI 37.6 (18-25 cm) PHILLIP (VTI) 2.34 (2.5-4.5 cm2) Mitral Valve MV A Velocity 68.0 (40-130 cm/s) E/A Ratio 1.17 Tricuspid Valve TR P. Velocity 212.00 cm/s RAP Estimate 10.00 mmHg RVSP 28.00 mmHg Left Ventricle The left ventricle is normal size. Left ventricular systolic function is normal. The left ventricular ejection fraction is within the normal range. There is normal left ventricular wall thickness. There is normal LV segmental wall motion. The left ventricular diastolic function is normal. LVEF is 55% Right Ventricle The right ventricle is mildly dilated. The right ventricular systolic function is normal. Atria The left atrium is mildly dilated. The right atrium is mildly dilated. There is no color Doppler evidence of interatrial shunt. Aortic Valve The aortic valve is mildly thickened. There is no hemodynamically significant aortic valvular stenosis. No aortic regurgitation is present. Mitral Valve The mitral valve is normal in structure. No evidence of mitral valve stenosis. Mild mitral regurgitation is present. Tricuspid Valve The tricuspid valve leaflets are thin and pliable. Mild tricuspid regurgitation. RVSP is 20-25 mmHg. Pulmonic Valve The pulmonary valve is grossly normal in structure. Trace pulmonic valve regurgitation is present. Great Vessels The aortic root is normal in size. IVC is normal in size and collapses >50% with inspiration. Pericardium There is no pericardial effusion. Other Information Study Quality: Fair Conclusion Normal biventricular systolic function. Mild RV dilation. Mild biatrial dilation. Mild MR, mild TR. Electronically signed by : Chanda Michelle MD 05/16/2025 20:53:26
== END 2025-05-11 23:59 | disposition home or self-care (01) ==
LOC: RT 10:57
PROVIDERS: PCP Nurse Practitioner Family; Visit Provider Internal Medicine
DX: I08.1 Rheumatic disorders of both mitral and tricuspid valves (principal); I11.9 Hypertensive heart disease without heart failure; I25.10 Atherosclerotic heart disease of native coronary artery without angina pectoris; F17.200 Nicotine dependence, unspecified, uncomplicated; E78.5 Hyperlipidemia, unspecified; Z95.5 Presence of coronary angioplasty implant and graft
CPT/HCPCS: 93306

== ENCOUNTER 2025-05-15 13:04 | Day surgery (SDC) | payer MEDICARE, SELFPAY ==
[2025-05-15 13:09] VITALS: BP 101/54; PULSE 52; RESP 18; O2SAT 97; BMI 39.9
[2025-05-15] MEDS: LIDOCAINE 1% 5ML PF VIAL 5 ML (13:18)
[2025-05-15] MEDS: BUPIVACAINE 0.25% 10ML INJ 25 MG IJ (13:18)
[2025-05-15] MEDS: DEXAMETHASONE 10MG/ML 1ML VIAL 10 MG (13:20)
[2025-05-15 13:22] VITALS: BP 101/54; PULSE 52; RESP 18; O2SAT 97
[2025-05-15 13:24] VITALS: BP 101/54; PULSE 52; RESP 18; O2SAT 97
--- NOTE | 2025-05-15 13:26 | P.PCN_ITS ---
Procedure Date: 05/15/25 Time: 13:10 Anesthesiologist:: Kike Engle CRNA Complications:: None Pre-procedure Diagnosis:: Degenerative disc lumbar spine multilevels. Lumbar radiculopathy. Lumbar spondylosis. Multilevel lumbar facet arthropathy. Post-procedure Diagnosis:: Same. Indications for Procedure:: Patient is a very pleasant 65-year-old male who comes our clinic today for bilateral lumbar radiofrequency ablation at the L4-5 and L5-S1 levels. Patient describes low lumbar back pain as constant, dull, aching. He reports difficulty with lumbar flexion, extension, left and right rotation. He rates his pain 7/10. Procedure Details:: Procedure Details: Lumbar RFA Informed consent was obtained and the risk and benefits of the procedure was explained to the patient. Patient was placed prone on the procedure table. The p atient was prepped and draped in sterile fashion. C-arm fluoroscopy was used to view the lumbar spine. The skin and subcutaneous tissues were anesthetized using lidocaine. I placed 20-gauge RF needles into the facet joints of L3-L4, L4-L5 and L5-S1 bilaterally. We underwent sensory stimulation. There is good sensory stimulation at 0.8 V. We underwent motor stimulation. There is no motor stimulation at 2 V. We then anesthetized these levels with lidocaine and Depo- Medrol. I used a total of 10 mg of dexamethasone for all 3 levels. I then burned all 3 levels of L3-L4, L4-5 and L5-S1 bilaterally for 4 minutes at 80 ?C. Patient tolerated the procedure well with no complication. Plan and Disposition:: We will follow-up with this patient in 2 weeks. We will reevaluate her symptoms at that time. Plan and Disposition:: Patient was discharged without incident.
[2025-05-15 13:28] VITALS: BP 105/60; PULSE 51; RESP 16; O2SAT 100
== END 2025-05-15 13:28 | disposition home or self-care (01) ==
PROVIDERS: PCP Nurse Practitioner Family; Visit Provider Nurse Anesthetist, Certified Registered
DX: I11.0 Hypertensive heart disease with heart failure; K21.9 Gastro-esophageal reflux disease without esophagitis; I50.32 Chronic diastolic (congestive) heart failure; I25.118 Atherosclerotic heart disease of native coronary artery with other forms of angina pectoris; F41.9 Anxiety disorder, unspecified; M06.9 Rheumatoid arthritis, unspecified; F32.9 Major depressive disorder, single episode, unspecified; J43.9 Emphysema, unspecified; F17.210 Nicotine dependence, cigarettes, uncomplicated; E78.5 Hyperlipidemia, unspecified; N40.1 Benign prostatic hyperplasia with lower urinary tract symptoms; N39.498 Other specified urinary incontinence; Z95.5 Presence of coronary angioplasty implant and graft; Z79.51 Long term (current) use of inhaled steroids; Z79.02 Long term (current) use of antithrombotics/antiplatelets; Z79.82 Long term (current) use of aspirin; Z79.899 Other long term (current) drug therapy; Z91.09 Other allergy status, other than to drugs and biological substances; Z88.8 Allergy status to other drugs, medicaments and biological substances; Z88.6 Allergy status to analgesic agent; M47.816 Spondylosis without myelopathy or radiculopathy, lumbar region
CPT/HCPCS: 64635; 64636; J0665; J1100; J2003

== ENCOUNTER 2025-05-20 11:47 | Observation (INO) | payer MEDICARE, SELFPAY ==
--- OUTSIDE RECORDS SUMMARY | 2025-04-03 22:02 | XMS_ITS | Continuity of Care Document ---
Author Organization [facility] Phone Care Team Providers Care [employer] Adjustment Counselor Name Role Phone ARTVIPIN Primary Attending DEAN SAMUEL Primary Care ARTVIPIN Admitting ART, VIPIN Henriquez Unavailable ARTVIPIN Surgeon ALLERGIES AND ADVERSE REACTIONS ALLERGIES AND ADVERSE REACTIONS Code System Allergy Substance Adverse Reaction Date Reaction (Severity) [place] [id number] RXNorm Mirtazapine Adverse reaction to substance (Moderate) crazy active [id number] on March 28, 2025 10:43:26 AM UTC NICKEL (Free Text Allergy) Rash (Moderate) active [id number] on March 28, 2025 10:43:26 AM UTC 49165 RXNorm QUEtiapine Adverse reaction to substance (Moderate) crazy active [id number] on March 28, 2025 10:43:26 AM UTC ASSESSMENTS Benign prostatic hyperplasia with outflow obstruction ; FAMILY HISTORY RELATION: Father Status: Cause of : Unknown Age at : Unknown SNOMED-CT Diagnosis Age At Onset [id number] Malignant neoplastic disease RELATION: Mother Status: Cause of : Unknown Age at : Unknown SNOMED-CT Diagnosis Age At Onset [id number] Diabetes mellitus [id number] Chronic mental disorder PROBLEMS PATIENT PROBLEMS Code Description/Comments Category Status Upda juli By [id number] Benign prostatic hyp erplasia with outflow obstruction active [id number] on March 12:23:52 PM UTC RESULTS Patient: KRISTINE ALEGRE JR Date of : 1960 LABORATORY RESULTS ORDER 500: BASIC METABOLIC P KARLA (LOINC: 30464-8) ORDER DATE: March 27, 2025 1:14:00 PM [facility] Specimen Source: PLASMA Specimen Type: Plasma specim en PERFORMING LAB: [place] [id number] [facility] [id number] Result Comment: Final Result Date: March 27, 2025 2:01:00 PM [facility] (TECH: Just Eat) LOINC TEST FLAG RESULT REFERENCE RANGE UPDA JULI BY 2951-2 Sodium [Moles/volume ] in Serum or Plasma N 140 mmol/L 136 mmol/L - 145 mmol/L March 27, 2025 2:01:00 PM [facility] (TECH: Just Eat) 2823-3 Potassium [Moles/volume] in Serum or Plasma N 4.2 mmol/L 3.6 mmol/L - 5.0 mmol/L March 27, 2025 2:01:00 PM [facility] (Bio[employer]: Just Eat) 2075-0 Chloride [Moles/volu me] in Serum or Plasma N 104 mmol/L 98 mmol/L - 107 mmol/L March 27, 2025 2:01:00 PM [facility] ([employer]: Just Eat) 8-9 Carbon dioxide, tota l [Moles/volume] in Serum or Plasma N 24.7 mmol/L 21.0 mmol/L - 32.0 mmol/L March 27, 2025 2:01:00 PM [facility] ([employer]: Just Eat) 91651-9 Anion gap in Blood N 15.5 A ug2024 2:01:00 PM [facility] (TECH: Just Eat) 2345-7 Glucose [Mass/volume ] in Serum or Plasma N 112 mg/dl 70 mg/dl - 120 mg/dl March 032024 2:01:00 PM [facility] (TECH: Just Eat) 6299-2 Urea nitrogen [Mass/volume] in Blood H 19 mg/dL 7 mg/dL - 18 mg/dL March 27, 2025 2:01:00 PM [facility] (TECH: Just Eat) 73360-1 Creatinine [Moles/volume] in Blood N 1.1 mg/dL 0.6 mg/dL - 1.3 mg/dL March 27, 2025 2:01:00 PM [facility] (TECH: Just Eat) 22600-5 Glomerular filtratio n rate/1.73 sq M.predicted by Creatinine-based formula (MDRD) N 74 mlpermin 60 mlpermin March 27, 2025 2:01:00 PM UTC (TECH: Just Eat) 23114-9 Osmolality of Serum or Plasma by calculated by sum of electrolytes N 294 mosm/kg 275 mosm/kg - 301 mosm/kg March 27, 2025 2:01:00 PM UTC (TECH: Just Eat) 06273-9 Calcium [Mass/volume ] in Serum or Plasma N 8.7 mg/dl 8.5 mg/dl - 10.5 mg/dl March 27, 2025 2:01:00 PM UTC (TECH: Just Eat) LABORATORY NARRATIVE RESULTS Information is not available RADIOLOGY RESULTS ORDER 600: CHEST 2 VIEWS ( INC: [id number]) ORDER DATE: March 27, 2025 1:22:00 PM [place] PERFORMING LAB: [address] [id number] Final Result Date: March 2:15:[address] [address] Name: CODEY CARMONA Exam Date: 03/27/2025 : 1960 Age 64 years Gender: M Physician: BETHANY CALLEJAS Facility: [facility] Facility HSV: Outpatient Exam: CHEST 2 VIEWS EXAMINATION: TWO VIEW CHEST XR CLINICAL INDICATION: Male, 64 years old. preop. TECHNIQUE: 2 View, PA and lateral, X-ray of the chest was performed. [id number]. COMPARISON: No prior exam. FINDINGS: Lungs are clear. No pleural effusion. No pneumothorax. Cardiomediastinal silhouette is unremarkable. Bones are intact. IMPRESSION: Unremarkable two-view chest. Electronically signed by: Waylon Miller MD 03/27/2025 10:15 AM EDT Dictated By: WAYLON MILLER Transcribed By: Transcribed On: 03/27/2025 10:15 AM Electronically signed by: WAYLON MILLER 03/27/2025 Thank you for referring CODEY CARMONA to [facility]. Legally authenticated by PAUL SHAH 2025-03-27 10:15:26 PATHOLOGY NARRATIVE RESULTS ORDER 1100: PATHOLOGY SPECIM EN ([facility]: [id number]) ORDER DATE: March 28, 2025 1:25:00 PM UTC Specimen Source: PATH Specimen Type: Refer to path ology laboratory PERFORMING LAB: [address] [id number] Final Result Date: April 03, 2025 12:59:00 PM UTC (TECH: LFA) TEST: PATHOLOGY SPECIMEN SEE REPORT MICROBIOLOGY RESULTS No Micro Labs/Results Exist for Patient BLOOD ADMIN RESULTS Information is not available TREATMENT PLAN DISCHARGE MEDICATIONS Status RXNORM Medication Dose Route Frequency Dates Comments U pdated By Continued [id number] Ranolazine ER Oral Tablet Extended Release 12 Hour 1000 MG 1000 MG ORAL TWICE A DAY Prescri bed: March 28, 2025 12:23:1 4 PM UT [id number] on March 28, 2025 12:23:14 PM UT Continued [id number] Potassium Chloride Anna ER Oral Tablet Extended Release 10 MEQ 10 MEQ ORAL ONCE DAILY Prescri bed: March 28, 2025 12:23:1 4 PM UT [id number] on March 28, 2025 12:23:14 PM UT Continued 342956 Pantoprazole Sodium Oral Tablet Delayed Release 40 MG 40 MG ORAL ONCE DAILY Prescri bed: March 28, 2025 12:23:1 4 PM UT [id number] on March 28, 2025 12:23:14 PM UT Continued 384081 Nitroglycerin Sublingual Tablet Sublingual 0.4 MG 0.4 MG SUBLINGUAL NEEDED Prescri bed: March 28, 2025 12:23:1 4 PM UT [id number] on March 28, 2025 12:23:14 PM UT Continued 467026 Metoprolol Tartrate Oral Tablet 100 MG 1.5 TAB ORAL TWICE A DAY Prescri bed: March 28, 2025 12:23:1 4 PM UT [id number] on March 28, 2025 12:23:14 PM UT Continued 844815 traZODone HCl Oral Tablet 100 MG 150 MG ORAL AT BEDTIME Prescri bed: March 28, 2025 12:23:1 4 PM UT [id number] on March 28, 2025 12:23:14 PM UT Continued 616436 Methotrexate Sodium Oral Tablet 2.5 MG 8 TAB ORAL ONCE EACH WEEK Prescri bed: March 28, 2025 12:23:1 4 PM UT [id number] on March 28, 2025 12:23:14 PM UT Continued 228008 Methocarbamol Oral Tablet 750 MG 750 MG ORAL THREE TIMES A DAY Prescri bed: March 28, 2025 12:23:1 4 PM [facility] [id number] on March 28, 2025 12:23:14 PM UT Continued 183325 lamoTRIgine Oral Tablet 150 MG 150 MG ORAL TWICE A DAY Prescri bed: March 28, 2025 12:23:1 4 PM [facility] [id number] on March 28, 2025 12:23:14 PM UT Continued 092269 lamoTRIgine ER Oral Tablet Extended Release 24 Hour 25 MG 25 MG ORAL TWICE A DAY Prescri bed: March 28, 2025 12:23:1 4 PM [facility] [id number] on March 28, 2025 12:23:14 PM [place] Continued [id number] Isosorbide Mononitrate ER Oral Tablet Extended Release 24 Hour 60 MG 0.5 TAB ORAL TWICE A DAY Prescri bed: March 28, 2025 12:23:1 4 PM [facility] [id number] on March 28, 2025 12:23:14 PM [place] Continued 921357 amLODIPine Besylate Oral Tablet 10 MG 10 MG ORAL ONCE DAILY Prescri bed: March 28, 2025 12:23:1 4 PM [facility] [id number] on March 28, 2025 12:23:14 PM [place] Continued [id number] Gabapentin (Once-Daily) Oral Tablet 600 MG 600 MG ORAL THREE TIMES A DAY NEEDED Prescri bed: March 28, 2025 12:23:1 4 PM [facility] [id number] on March 28, 2025 12:23:14 PM UT Continued [id number] Tamsulosin HCl Oral Capsule 0.4 MG 0.4 MG ORAL ONCE DAILY Prescri bed: March 28, 2025 12:23:1 4 PM UT [id number] on March 28, 2025 12:23:14 PM UT Continued 234670 Furosemide Oral Tablet 40 MG 40 MG ORAL TWICE A DAY Prescri bed: March 28, 2025 12:23:1 4 PM [facility] [id number] on March 28, 2025 12:23:14 PM UT Continued 346315 Folic Acid Oral Tablet 1 MG 1 MG ORAL ONCE DAILY Prescri bed: March 28, 2025 12:23:1 4 PM [facility] [id number] on March 28, 2025 12:23:14 PM UT Continued 807042 Spironolactone Oral Tablet 50 MG 50 MG ORAL ONCE DAILY Prescri bed: March 28, 2025 12:23:1 4 PM [facility] [id number] on March 28, 2025 12:23:14 PM UT Continued 243400 Dutasteride Oral Capsule 0.5 MG 0.5 MG ORAL TWICE A DAY Prescri bed: March 28, 2025 12:23:1 4 PM [facility] [id number] on March 28, 2025 12:23:14 PM UT Continued [id number] Cefdinir Oral Capsule 300 MG 1 TAB ORAL TWICE A DAY Prescri bed: March 28, 2025 12:23:1 4 PM [facility] [id number] on March 28, 2025 12:23:14 PM [facility] Continued 897467 Clopidogrel Bisulfate Oral Tablet 75 MG 75 MG ORAL ONCE DAILY Prescri bed: March 28, 2025 12:23:1 4 PM [facility] Resume 04/04/25 [id number] on March 28, 2025 12:23:14 PM UT Continued 405782 Atorvastatin Calcium Oral Tablet 80 MG 80 MG ORAL AT BEDTIME Prescri bed: March 28, 2025 12:23:1 4 PM [facility] [id number] on March 28, 2025 12:23:14 PM [facility] Continued 705193 traMADol HCl Oral Tablet 50 MG 1 TAB ORAL EVERY SIX HOURS NEEDED Prescri bed: March 28, 2025 12:23:1 4 PM [facility] [id number] on March 28, 2025 12:23:14 PM [facility] PATIENT OPEN ORDERS Code System Descriptio n Frequency Occurrenc es Priority Category [place] [address]-8 [facility] P-R Interval Lead V2 ONE TIME 0 Routine March 23, 2025 4:07:00 PM [facility] ART VIPIN S [id number] on March 23, 2025 4:07:00 PM [facility] SCHEDULED PROCEDURES Code System Description Status Scheduled Date Upd ated By Patient scheduled procedure information is not available. MEDICATIONS HOME MEDICATIONS Status RXNORM SDC Medication Dose Route Frequency Dates Comments Reported By Updated By Active [id number] 95612 04694 2 Clopidogrel Bisulfate Oral Tablet 75 MG 75.0 MG ORAL DAILY Last Dose: March 23, 2025 1:00:0 0 PM [facility] [id number] on March 28, 2025 10:11:42 AM [facility] Active 994076 08295 58584 0 amLODIPine Besylate Oral Tablet 10 MG 10.0 MG ORAL DAILY Last Dose: March 28, 2025 3:00:0 0 AM [facility] [id number] on March 28, 2025 10:11:12 AM [facility] Active 718087 85879 56103 0 Atorvastatin Calcium Oral Tablet 80 MG 80.0 MG ORAL BEDTIME Last Dose: March 28, 2025 3:00:0 0 AM [facility] [id number] on March 28, 2025 10:11:24 AM [facility] Active 513043 41272 95104 9 Dutasteride Oral Capsule 0.5 MG 0.5 MG ORAL BID Last Dose: March 28, 2025 3:00:0 0 AM [facility] [id number] on March 28, 2025 10:12:09 AM [facility] Active 051047 67164 31417 0 Folic Acid Oral Tablet 1 MG 1.0 MG ORAL DAILY Last Dose: March 28, 2025 3:00:0 0 AM [facility] [id number] on March 28, 2025 10:12:23 AM [facility] Active 395967 08572 46177 5 Furosemide Oral Tablet 40 MG 40.0 MG ORAL BID Last Dose: March 28, 2025 3:00:0 0 AM [facility] [id number] on March 28, 2025 10:12:42 AM [facility] Active 5598677 11840 46623 6 Gabapentin (Once-Daily) Oral Tablet 600 MG 600.0 MG ORAL TIDPRN Last Dose: March 28, 2025 3:00:0 0 AM [facility] [id number] on March 28, 2025 10:13:05 AM [facility] Active 647721 52586 03480 1 Isosorbide Mononitrate ER Oral Tablet Extended Release 24 Hour 60 MG 0.5 TAB ORAL BID Last Dose: March 28, 2025 3:00:0 0 AM [facility] [id number] on March 28, 2025 10:13:15 AM [facility] Active 292829 61474 33618 4 lamoTRIgine Oral Tablet 150 MG 150.0 MG ORAL BID Last Dose: March 28, 2025 3:00:0 0 AM [facility] [id number] on March 28, 2025 10:13:46 AM [facility] Active 934605 13226 04249 1 lamoTRIgine ER Oral Tablet Extended Release 24 Hour 25 MG 25.0 MG ORAL BID Last Dose: March 28, 2025 3:00:0 0 AM [facility] [id number] on March 28, 2025 10:13:36 AM [facility] Active 773331 83753 06422 2 Methocarbamo l Oral Tablet 750 MG 750.0 MG ORAL TID Last Dose: March 28, 2025 3:00:0 0 AM [facility] [id number] on March 28, 2025 10:13:54 AM [facility] Active 699889 16195 59151 1 Methotrexate Sodium Oral Tablet 2.5 MG 8.0 TAB ORAL QWEEK Last Dose: March 24, 2025 3:00:0 0 AM [facility] [id number] on March 28, 2025 10:14:05 AM [facility] Active 920542 30397 53845 1 Metoprolol Tartrate Oral Tablet 100 MG 1.5 TAB ORAL BID Last Dose: March 28, 2025 3:00:0 0 AM [facility] [id number] on March 28, 2025 10:14:29 AM [facility] Active 995963 46264 56848 1 Nitroglyceri n Sublingual Tablet Sublingual 0.4 MG 0.4 MG SUBLIN GUAL PRN Last Dose: February 28, 2025 4:00:0 0 PM [facility] [id number] on March 28, 2025 10:14:45 AM [facility] Active 601766 29706 99634 0 Pantoprazole Sodium Oral Tablet Delayed Release 40 MG 40.0 MG ORAL DAILY Last Dose: March 27, 2025 1:00:0 0 PM [facility] [id number] on March 28, 2025 10:14:56 AM [facility] Active 9950966 55167 42527 1 Potassium Chloride Anna ER Oral Tablet Extended Release 10 MEQ 10.0 MEQ ORAL DAILY Last Dose: March 27, 2025 1:00:0 0 PM [facility] [id number] on March 28, 2025 10:15:05 AM [facility] Active 787941 90562 29693 2 Ranolazine ER Oral Tablet Extended Release 12 Hour 1000 MG 1000. 0 MG ORAL BID Last Dose: March 28, 2025 3:00:0 0 AM [facility] [id number] on March 28, 2025 10:15:28 AM [facility] Active 195982 74350 16724 1 Spironolacto ne Oral Tablet 50 MG 50.0 MG ORAL DAILY Last Dose: [id number] on March 23, 2025 3:59:00 PM [facility] Active 570086 31634 29538 1 Tamsulosin HCl Oral Capsule 0.4 MG 0.4 MG ORAL DAILY Last Dose: March 28, 2025 3:00:0 0 AM [facility] [id number] on March 28, 2025 10:15:38 AM [facility] Active 717267 77434 29494 1 traZODone HCl Oral Tablet 100 MG 150.0 MG ORAL BEDTIME Last Dose: March 28, 2025 3:00:0 0 AM [facility] [id number] on March 28, 2025 10:15:52 AM [facility] DISCHARGE MEDICATIONS Status RXNORM [facility] Medication Dose Route Frequency Dates Dis pense Data Comments Physician Updated By Continu ed [id number] 0527 8160 353 Ranolazine ER Oral Tablet Extended Release 12 Hour 1000 MG 1000. 0 MG ORAL TWICE A DAY Prescr ibed: March 28, 2025 12:23: 14 PM [facility] ART VIPIN Henriquez PHY [id number] on March 28, 2025 12:23:14 PM [facility] ed [id number] 4501 9055 901 Potassium Chloride Anna ER Oral Tablet Extended Release 10 MEQ 10.0 MEQ ORAL ONCE DAILY Prescr ibed: March 28, 2025 12:23: 14 PM [facility] ART VIPIN Henriquez PHY [id number] on March 28, 2025 12:23:14 PM [facility] ed 020551 5934 1072 230 Pantoprazol e Sodium Oral Tablet Delayed Release 40 MG 40.0 MG ORAL ONCE DAILY Prescr ibed: March 28, 2025 12:23: 14 PM [facility] ART VIPIN Henriquez PHY [id number] on March 28, 2025 12:23:14 PM [facility] ed 689323 1141 8008 601 Nitroglycer in Sublingual Tablet Sublingual 0.4 MG 0.4 MG SUBLIN GUAL NEEDED Prescr ibed: March 28, 2025 12:23: 14 PM [facility] ART VIPIN Henriquez PHY [id number] on March 28, 2025 12:23:14 PM [facility] ed 086249 5361 8001 703 Metoprolol Tartrate Oral Tablet 100 MG 1.5 TAB ORAL TWICE A DAY Prescr ibed: March 28, 2025 12:23: 14 PM [facility] ART VIPIN Henriquez PHY [id number] on March 28, 2025 12:23:14 PM [facility] Continu ed 387887 3167 5265 401 traZODone HCl Oral Tablet 100 MG 150.0 MG ORAL AT BEDTIME Prescr ibed: March 28, 2025 12:23: 14 PM [facility] ART VIPIN S PHY [id number] on March 28, 2025 12:23:14 PM [facility] Continu ed 062915 6578 8001 401 Methotrexat e Sodium Oral Tablet 2.5 MG 8.0 TAB ORAL ONCE EACH WEEK Prescr ibed: March 28, 2025 12:23: 14 PM [facility] ART VIPIN Martinez PHY [id number] on March 28, 2025 12:23:14 PM [facility] Continu ed 976385 9088 7014 612 Methocarbam ol Oral Tablet 750 MG 750.0 MG ORAL THREE TIMES A DAY Prescr ibed: March 28, 2025 12:23: 14 PM [facility] ART VIPIN S PHY [id number] on March 28, 2025 12:23:14 PM [facility] Continu ed 039206 1330 2413 204 lamoTRIgine Oral Tablet 150 MG 150.0 MG ORAL TWICE A DAY Prescr ibed: March 28, 2025 12:23: 14 PM [facility] ART VIPIN Martinez PHY [id number] on March 28, 2025 12:23:14 PM [facility] Continu ed 806719 7179 4056 111 lamoTRIgine ER Oral Tablet Extended Release 24 Hour 25 MG 25.0 MG ORAL TWICE A DAY Prescr ibed: March 28, 2025 12:23: 14 PM [facility] ART VIPIN S PHY [id number] on March 28, 2025 12:23:14 PM [facility] Continu ed 712284 6656 8010 501 Isosorbide Mononitrate ER Oral Tablet Extended Release 24 Hour 60 MG 0.5 TAB ORAL TWICE A DAY Prescr ibed: March 28, 2025 12:23: 14 PM [facility] ART VIPIN Martinez PHY [id number] on March 28, 2025 12:23:14 PM [facility] Continu ed 772394 1887 1027 190 amLODIPine Besylate Oral Tablet 10 MG 10.0 MG ORAL ONCE DAILY Prescr ibed: March 28, 2025 12:23: 14 PM [facility] ART VIPIN Martinez PHY [id number] on March 28, 2025 12:23:14 PM [facility] ed 1133806 4436 2060 716 Gabapentin (Once-Daily ) Oral Tablet 600 MG 600.0 MG ORAL THREE TIMES A DAY NEEDED Prescr ibed: March 28, 2025 12:23: 14 PM [facility] ART VIPIN Henriquez PHY [id number] on March 28, 2025 12:23:14 PM [facility] ed 020711 6032 1207 601 Tamsulosin HCl Oral Capsule 0.4 MG 0.4 MG ORAL ONCE DAILY Prescr ibed: March 28, 2025 12:23: 14 PM [facility] ART VIPIN S PHY [id number] on March 28, 2025 12:23:14 PM [facility] ed 671129 1256 4429 925 Furosemide Oral Tablet 40 MG 40.0 MG ORAL TWICE A DAY Prescr ibed: March 28, 2025 12:23: 14 PM [facility] ART VIPIN Henriquez PHY [id number] on March 28, 2025 12:23:14 PM [facility] ed 821501 1740 9049 230 Folic Acid Oral Tablet 1 MG 1.0 MG ORAL ONCE DAILY Prescr ibed: March 28, 2025 12:23: 14 PM [facility] ART VIPIN S PHY [id number] on March 28, 2025 12:23:14 PM [facility] ed 035891 0024 9032 801 Spironolact one Oral Tablet 50 MG 50.0 MG ORAL ONCE DAILY Prescr ibed: March 28, 2025 12:23: 14 PM [facility] ART VIPIN S PHY [id number] on March 28, 2025 12:23:14 PM [facility] ed 342153 5258 2075 009 Dutasteride Oral Capsule 0.5 MG 0.5 MG ORAL TWICE A DAY Prescr ibed: March 28, 2025 12:23: 14 PM [facility] ART VIPIN Martinez PHY [id number] on March 28, 2025 12:23:14 PM [facility] Continu ed 833729 9010 0071 160 Cefdinir Oral Capsule 300 MG 1.0 TAB ORAL TWICE A DAY Prescr ibed: March 28, 2025 12:23: 14 PM [facility] ART VIPIN Martinez PHY [id number] on March 28, 2025 12:23:14 PM [facility] Continu ed 698142 0555 5025 302 Clopidogrel Bisulfate Oral Tablet 75 MG 75.0 MG ORAL ONCE DAILY Prescr ibed: March 28, 2025 12:23: 14 PM UT Resume 04/04/25 ART VIPIN Henriquez PHY [id number] on March 28, 2025 12:23:14 PM [facility] ed 432335 3635 4086 090 Atorvastati n Calcium Oral Tablet 80 MG 80.0 MG ORAL AT BEDTIME Prescr ibed: March 28, 2025 12:23: 14 PM [facility] ART VIPIN Henriquez PHY [id number] on March 28, 2025 12:23:14 PM [facility] ed 725350 8496 6601 708 traMADol HCl Oral Tablet 50 MG 1.0 TAB ORAL EVERY SIX HOURS NEEDED Prescr ibed: March 28, 2025 12:23: 14 PM [facility] ART VIPIN Henriquez PHY [id number] on March 28, 2025 12:23:14 PM [facility] INPATIENT MEDICATIONS Status RXNORM [facility] Medication Dose Route Frequency Rat e Quantity Dates Indication Dispense Data Comments Physician Updated By Angelica inued [phone] NOZIN [employer] POPSWAB SWAB 1.0 EA NASAL ONE TIME ADMINISTRA TION (UNSCHEDUL ED) Start: March 27, 2025 6:40:0 0 PM UT End: March 28, 2025 10:34: 49 AM [facility] TINOALEX GAMBOA [id number] on March 28, 2025 10:34:00 AM UT Discont inued [id number] 0014 3914 025 ceFAZolin (ANCEF) 3 GM SOLR 3.0 GM INTRAV ENOUS ONE TIME ADMINISTRA TION (UNSCHEDUL ED) 200.0 ML/HR Start: March 28, 2025 10:00: 00 AM UTC End: March 28, 2025 10:34: 50 AM [facility] TINO BEE [id number] on March 28, 2025 10:34:00 AM UT Discont inued 6165371 0040 9710 167 sodium chloride 0.9% SOLN 100.0 ML INTRAV ENOUS ONE TIME ADMINISTRA TION (UNSCHEDUL ED) 200.0 ML/HR Start: March 28, 2025 10:00: 00 AM UT End: March 28, 2025 10:34: 50 AM UT TINO BEE [id number] on March 28, 2025 10:34:00 AM UT Discont inued 278235 4491 8012 704 LACTATED RINGERS SOLN 1000. 0 ML INTRAV ENOUS ONE TIME ONLY (PACU) 25.0 ML/HR Start: March 27, 2025 7:57:0 0 PM UTC End: March 28, 2025 12:23: 14 PM UTC MILAN LILIANA [id number] on March 29, 2025 4:25:00 AM UTC Discont inued 3914333 0040 9117 630 meperidine (DEMEROL) 25 MG/ML SOLN 12.5 MG INTRAV ENOUS NEEDED (PACU) Start: March 27, 2025 7:57:0 0 PM UTC End: March 28, 2025 12:23: 14 PM UTC MILAN LILIANA [id number] on March 29, 2025 4:25:00 AM UTC Discont inued 7818519 0040 9117 630 meperidine (DEMEROL) 25 MG/ML SOLN 25.0 MG INTRAV ENOUS NEEDED (PACU) Start: March 27, 2025 7:57:0 0 PM UTC End: March 28, 2025 12:23: 14 PM UTC MILAN LILIANA [id number] on March 29, 2025 4:25:00 AM UTC Discont inued 2695358 0064 1624 725 fentaNYL (SUBLIMAZE) 50 MGC/ML SOLN 25.0 MCG INTRAV ENOUS EVERY 5 MINUTES NEEDED (PACU) Start: March 27, 2025 7:57:0 0 PM UTC End: March 28, 2025 12:23: 14 PM UT MILAN LILIANA [id number] on March 29, 2025 4:25:00 AM UTC Discont inued 3616310 0064 1624 725 fentaNYL (SUBLIMAZE) 50 MGC/ML SOLN 50.0 MCG INTRAV ENOUS EVERY 5 MINUTES NEEDED (PACU) Start: March 27, 2025 7:57:0 0 PM UTC End: March 28, 2025 12:23: 14 PM UT MILAN LILIANA [id number] on March 29, 2025 4:25:00 AM UTC Discont inued 2976741 9279 9426 401 HYDROmorpho ne (DILAUDID) 0.5 MG/0.5ML SOLN 0.5 MG INTRAV ENOUS EVERY 10 MINUTES NEEDED (PACU) Start: March 27, 2025 7:57:0 0 PM UTC End: March 28, 2025 12:23: 14 PM UTC MILAN LILIANA [id number] on March 29, 2025 4:25:00 AM UTC Discont inued [id number] HYDROmorpho ne (DILAUDID) 1 MG/ML SOLN 1.0 MG INTRAV ENOUS EVERY 10 MINUTES NEEDED (PACU) Start: March 27, 2025 7:57:0 0 PM UTC End: March 28, 2025 12:23: 14 PM UTC [facility] [id number] on March 29, 2025 4:25:00 AM UTC Discont inued [id number] ondansetron (ZOFRAN) INJ 4 MG/2 ML SOLN 4.0 MG INTRAV ENOUS NEEDED (PACU) Start: March 27, 2025 7:57:0 0 PM UTC End: March 28, 2025 12:23: 14 PM [facility] [id number] on March 29, 2025 4:25:00 AM UTC Discont inued [id number] droperidol (INAPSINE) 2.5 MG/ML SOLN 0.625 MG INTRAV ENOUS NEEDED (PACU) Start: March 27, 2025 7:57:0 0 PM UTC End: March 28, 2025 12:23: 14 PM [facility] [id number] on March 29, 2025 4:25:00 AM UTC Discont inued [id number] 112 midazolam (VERSED) 2 MG/2 ML SOLN 1.0 MG INTRAV ENOUS EVERY FIVE MINUTES NEEDED Start: March 27, 2025 7:57:0 0 PM UTC End: March 28, 2025 12:23: 14 PM [facility] [id number] on March 29, 2025 4:25:00 AM UTC Discont inued [id number] 112 midazolam (VERSED) 2 MG/2 ML SOLN 2.0 MG INTRAV ENOUS NEEDED (PACU) Start: March 27, 2025 7:57:0 0 PM UTC End: March 28, 2025 12:23: 14 PM [facility] [id number] on March 29, 2025 4:25:00 AM UTC Discont inued [id number] promethazin e (PHENERGAN) 25 MG/ML SOLN 12.5 MG INTRAV ENOUS NEEDED (PACU) Start: March 27, 2025 7:57:0 0 PM UTC End: March 28, 2025 12:23: 14 PM [facility] [id number] on March 29, 2025 4:25:00 AM UTC Discont inued [id number] promethazin e (PHENERGAN) 12.5 MG GEL 12.5 MG TOPICA L NEEDED (PACU) Start: March 27, 2025 7:57:0 0 PM UTC End: March 28, 2025 12:23: 14 PM UT MILAN LILIANA [id number] on March 29, 2025 4:25:00 AM UTC Discont inued [id number] 101 DUONEB 0.5-2.5 MG/3 ML SOLN 3.0 ML INHALE D ONE TIME ONLY (SCHEDULED DOSE) Start: March 28, 2025 10:44: 00 AM UT End: March 28, 2025 10:44: 00 AM [facility] VIPIN S INTERFAC ED on March 28, 2025 10:43:00 AM UT Discont inued [id number] 305 lidocaine (XYLOCAINE) 2% UROJET GEL 10.0 ML ONE TIME ONLY (SCHEDULED DOSE) Start: March 28, 2025 11:00: 00 AM UT End: March 28, 2025 11:00: 00 AM [facility] INTERFAC ED on March 28, 2025 10:59:00 AM UT Discont inued [id number] 332 PACU - fentaNYL (SUBLIMAZE) 100 MCG/2ML SOLN 100.0 MCG INTRAV ENOUS ONE TIME ONLY (SCHEDULED DOSE) Start: March 28, 2025 11:20: 00 AM UT End: March 28, 2025 11:20: 00 AM [facility] ART VIPIN S INTERFAC ED on March 28, 2025 11:19:00 AM UT Discont inued [id number] [id number] 9020 901 PROPOFOL 200 MG/20ML EMUL 200.0 MG INTRAV ENOUS ONE TIME ONLY (SCHEDULED DOSE) 8.333 MG/HR Start: March 28, 2025 3:41:0 0 PM UTC End: March 28, 2025 3:42:1 0 PM UTC ART VIPIN Martinez [id number] on March 28, 2025 3:42:00 PM UTC Discont inued [id number] [id number] 505 DEXAMETHASO NE SODIUM PHOSPHATE 20.0 MG INTRAV ENOUS ONE TIME ONLY (SCHEDULED DOSE) 0.833 MG/HR Start: March 28, 2025 3:41:0 0 PM UTC End: March 28, 2025 3:42:1 0 PM UTC ART VIPIN Martinez [id number] on March 28, 2025 3:42:00 PM UTC Discont inued [id number] 1221 5617 000 ONDANSETRON HCL 4 MG/2ML SOLN 4.0 MG INTRAV ENOUS ONE TIME ONLY (SCHEDULED DOSE) 0.167 MG/HR Start: March 28, 2025 3:41:0 0 PM UTC End: March 28, 2025 3:42:1 0 PM UTC ART VIPIN Henriquez [id number] on March 28, 2025 3:42:00 PM UTC Discont inued [id number] [id number] 9662 902 QUELICIN 20 MG/ML SOLN 200.0 MG INTRAV ENOUS ONE TIME ONLY (SCHEDULED DOSE) 8.333 MG/HR Start: March 28, 2025 3:41:0 0 PM UTC End: March 28, 2025 3:42:1 0 PM UTC ART VIPIN S [id number] on March 28, 2025 3:42:00 PM UTC Discont inued [id number] 4120 7460 525 GLYCOPYRROL ATE 1 MG/5ML SOLN 1.0 MG INTRAV ENOUS ONE TIME ONLY (SCHEDULED DOSE) 0.042 MG/HR Start: March 28, 2025 3:41:0 0 PM UTC End: March 28, 2025 3:42:1 0 PM UTC ART VIPIN S [id number] on March 28, 2025 3:42:00 PM UTC Discont inued [id number] 4219 3025 202 LIDOCAINE HCL 2 % SOLN 4.0 ML ONE TIME ONLY (SCHEDULED DOSE) 0.167 ML/HR Start: March 28, 2025 3:42:0 0 PM UTC End: March 28, 2025 3:42:1 0 PM UT YOEL Henriquez [id number] on March 28, 2025 3:42:00 PM UT SOCIAL HISTORY SOCIAL HISTORY - Smoking Status SNOMED-CT Social History Element Description Effective Dates Offered Cessation Comment Updated By [id number] Current Tobacco smoking status Current Every Day Smoker [id number] on March 23, 2025 3:34:28 PM UT SOCIAL HISTORY - Gender Sex: Male SOCIAL HISTORY - Status : status i nformation is not available Intention in Next Year: intention information is not available SOCIAL HISTORY - Assessments Code System Description Status Date Value of Assessment Updated By Comment Assessment Information is no t available SOCIAL HISTORY - [place] Affiliation [place] information is not av ailable SOCIAL HISTORY - Legal Sex Legal Sex information is not available SOCIAL HISTORY - Sexual Behavior Sexual Orientation Gender Identity SNOMED-CT Description SNO MED -CT Description Activity Level No of Partners Partner Type UpdatedBy Information is not available SOCIAL HISTORY - Occupation Occupation information is no t available VITAL SIGNS PATIENT VITAL SIGNS This section displays the mo st recent value for each vital sign as of April 04, 2025 2:02:02 AM UT Loinc Code Vital Sign Activity Date Result Updated By 8302-2 Body height March 28, 2025 10:16:52 AM UT 177.8 cm (70.0 in) [id number] on March 28, 2025 10:16:52 AM [facility] 74217-0 Body mass index (BMI) [Ratio] March 28, 2025 10:16:52 AM UT 41.344 kg/m2 3140-1 Body Surface Area Derived From Formula March 28, 2025 10:16:52 AM UT 2.4377 m2 99460-0 Body weight Measured March 28, 2025 10:16:52 AM UT 130.7 kg (288.0 lb) [id number] on March 28, 2025 10:16:52 AM [facility] PEDIATRIC GROWTH CHART - VITAL SIGNS This section displays Head C ircumference Percentile, Weight for Length Percentile and BMI Percentile Loinc Code Pediatric Measure Age (Months) Result Updat ed By No Pediatric Growth Chart Pe rcentile Information Available. PROCEDURES PATIENT PROCEDURES Procedure information is not available. PROCEDURE NOTE Note Title Operative/Procedure Note Date Of Service March 28, 2025 12:1 6:56 PM UT Created By [id number] on March 12:16:56 PM [facility] Signed By [id number] on March 12:20:27 PM [facility] Pre-Procedure Diagnosis BPH with obstructive voiding symptoms Post- Procedure Diagnosis Same Procedure / Surgery None Plasma button bipolar electrode vaporization of the prostate Anesthesia Type General anesthesia Estimated Blood Loss Minimal Complications None Procedure Description / Findings After informed consent was obtained from the patient, he was taken the operating room where he was placed in a comfortable supine position on the procedure table. Time-out was performed confirming correct patient, correct procedure, and correct operative site. General anesthesia was induced and preoperative IV antibiotics were administered. He was then placed in a dorsal lithotomy position and genitals were prepped and draped in the usual sterile fashion. We inserted the rigid cystoscope in the bladder and performed a careful and thorough inspection of the entire mucosa. Left and right ureteral orifices were identified. We then withdrew the scope to the level of the veru to inspect the prostatic urethra. At this time, we exchanged the rigid cystoscope for the bipolar resectoscope with the plasma button. We began electrode vaporization of the floor of the prostate with care taken to avoid ureteral orifices at all times. The verumontanum served as the distal limit of our electrode vaporization. Once we would resected down to the surgical capsule, we then systematically electrode vaporized the left and right lateral lobes. Numerous prostate stones were encountered and this hindered electrovaporization of the lateral lobes. We therefore exchanged the plasma button in some areas for the loop and performed resection with chips of the prostate removed with the Ellik evacuator and passed off the field. We then resumed electrode vaporization with the plasma button to smooth out the lateral lobes down to the surgical capsule followed by the anterior prostate tissue. We then withdrew the scope to the level of the veru and visualized a widely patent channel directly into the bladder lumen. The scope was advanced in both left and right ureteral orifices were identified and well away from the area of electrode vaporization. The scope was then withdrawn. We then attempted to pass a 24 Welsh three-way Cavanaugh catheter into the bladder. Slight resistance was metWithin the prostatic urethra and therefore this was removed and the cystoscope was reinserted. At the floor of the prostate, there was a rent in the tissue leading to the surgical capsule. We therefore advanced the scope into the bladder lumen and then advanced a sensor tip guidewire in a retrograde fashion until it coiled within the bladder lumen. We then advanced the 24 Welsh three-way Cavanaugh catheter over the wire into the bladder. 30 cc of sterile water was then placed in the balloon and the catheter was connected to continuous bladder irrigation. At this point the procedure was terminated, the patient was awoken and transferred to the PACU in stable condition. Specimens Prostate chips Tubes/Drains 24Fr three way catheter Implants None Disposition of Patient Stable to PACU Electronically signed by YOEL BOLDEN on 0820 HEALTH CONCERNS Problems Concern Status Health Concern problem infor mation not available. Smoking Status Status Years Used Consumed packs p er day Health Concern smoking histo ry information not available. Family History Concern Status Health Concern family histor y information not available. ENCOUNTERS ENCOUNTER INFORMATION Reason for Visit TRANSURETHRAL RESECT ION OF PROSTATE Admission March 28, 2025 9:57:00 AM UTC G [address] [address] Discharge March 28, 2025 5:57:00 PM UTC D ISCHARGED TO HOME OR SELF CARE ENCOUNTER DIAGNOSES Notes information is not todd ilable. Code System Diagnosis Onset Date Diagnosis information is not available. ABSTRACT DIAGNOSES Code System Diagnosis Updated By Abatement Date R39.12 ICD10 POOR URINARY STREAM [id number] on March 30, 2025 2:00:48 PM UTC N40.1 ICD10 BENIGN PROSTATIC HYPERPLASIA WITH LOWER URINARY TRACT SYMPTOMS [id number] on March 30, 2025 2:00:48 PM UTC I10 ICD10 ESSENTIAL (PRIMARY) HYPERTEN RUCHI [id number] on March 30, 2025 2:00:48 PM UTC I25.10 ICD10 ATHEROSCLEROTIC HEART DISEASE OF [place] CORONARY ARTERY WITHOUT ANGINA PECTORIS [id number] on March 30, 2025 2:00:48 PM UTC I11.0 ICD10 HYPERTENSIVE HEA RT DISEASE WITH HEART FAILURE [id number] on March 30, 2025 2:00:48 PM UTC I50.9 ICD10 HEART FAILURE, UNSPECIFIED A [id number] on March 30, 2025 2:00:48 PM UTC E78.5 ICD10 HYPERLIPIDEMIA, UNSPECIFIED [id number] on March 30, 2025 2:00:48 PM UTC F17.210 ICD10 NICOTINE DEPENDE NCE, CIGARETTES, UNCOMPLICATED [id number] on March 30, 2025 2:00:48 PM UT J44.9 ICD10 CHRONIC OBSTRUCT KEITH PULMONARY DISEASE, UNSPECIFIED [id number] on March 30, 2025 2:00:48 PM UT R06.00 ICD10 DYSPNEA, UNSPECIFIED [id number] on March 30, 2025 2:00:48 PM UT G47.30 ICD10 SLEEP APNEA, UNSPECIFIED AAD 6617 on March 30, 2025 2:00:48 PM UT K21.9 ICD10 GASTRO-ESOPHAGEA L REFLUX DISEASE WITHOUT ESOPHAGITIS [id number] on March 30, 2025 2:00:48 PM UT M19.90 ICD10 UNSPECIFIED OSTE OARTHRITIS, UNSPECIFIED SITE [id number] on March 30, 2025 2:00:48 PM UT M06.9 ICD10 RHEUMATOID ARTHR ITIS, UNSPECIFIED [id number] on March 30, 2025 2:00:48 PM UT M25.50 ICD10 PAIN IN UNSPECIFIED JOINT AA [id number] on March 30, 2025 2:00:48 PM UT F32.A ICD10 DEPRESSION, UNSPECIFIED [id number] on March 30, 2025 2:00:48 PM UT R35.0 ICD10 FREQUENCY OF MICTURITION AAD 6617 on March 30, 2025 2:00:48 PM UT R32 ICD10 UNSPECIFIED URINARY INCONTIN ENCE [id number] on March 30, 2025 2:00:48 PM UT Z79.899 ICD10 OTHER ELECTRIC CAR OPERATOR (CURRENT) DRUG THERAPY [id number] on March 30, 2025 2:00:48 PM UT Z88.6 ICD10 ALLERGY STATUS T O ANALGESIC AGENT [id number] on March 30, 2025 2:00:48 PM UT Z88.8 ICD10 ALLERGY STATUS T O OTHER DRUGS, MEDICAMENTS AND BIOLOGICAL SUBSTANCES [id number] on March 30, 2025 2:00:48 PM UT CARE TEAM Care School Adjustment Counselor Role VIPIN SOSA Primary Attending DEAN SAMUEL Primary Care VIPIN SOSA Admitting VIPIN SOSA Referring VIPIN SOSA Surgeon HOSPITAL DISCHARGE INSTRUCTION DISCHARGE INSTRUCTION Encounter [id number] Admit Date March 28, 2025 9:57 :00 AM UTC Discharge Date March 28, 2025 5:57 :00 PM [facility] PATIENT EDUCATION SUMMARY Patient/Visit Information: Patient Name: CODEY CARMONA Diag: Attending Caregiver: YOEL Henriquez Discharge Instruction Sheets Provided: Anesthesia, [facility] DC Instructions After BEFAST-Stroke Warning Signs Discharge Information Dr. Sosa- TRANSPERINEAL PROSTATE BIOPSY Fall Prevention in Hospitals and in the Home [facility] - Medication Management Indwelling Urinary Catheter Bag Care, Adult KYNECT- HELP Medication Side Effects Suicide - Managing your Feelings Patient Instructions: Followup Appointments/Instructions: CARE TEAM CARE collection development librarian Role on Team Location Telecom Status Start Date End Leo e Updated By YOEL BOLDEN Surgeon normal March 28, 2025 9:57:00 AM UT March 28, 2025 5:57:00 PM UT [id number] on March 30, 2025 2:00:56 PM [facility] YOEL BOLDEN Referring normal March 27, 2025 1:03:01 PM [facility] March 28, 2025 5:57:00 PM [facility] [id number] on March 30, 2025 2:00:56 PM [facility] JIMMIE MORAN PCP normal 2024 2:02:13 PM [facility] March 28, 2025 5:57:00 PM [facility] [id number] on March 30, 2025 2:00:56 PM [facility] YOEL BOLDEN Attending normal March 13, 2025 2:02:13 PM [facility] March 28, 2025 5:57:00 PM UT [id number] on March 30, 2025 2:00:56 PM [facility] YOEL BOLDEN Admitting normal March 13, 2025 2:02:13 PM [facility] March 28, 2025 5:57:00 PM UT [id number] on March 30, 2025 2:00:56 PM [facility]
--- OUTSIDE RECORDS SUMMARY | 2025-04-17 01:29 | XMS_ITS | Continuity of Care Document ---
Author Organization [facility] Phone Care Team Providers Care Three Dimensional Art Instructor Name Role Phone JULI CARTER Admitting NO, DEFINED P Unavailable Unavailable RAULJULI MILLER Primary Attending DEAN SAMUEL Primary Care ALLERGIES AND ADVERSE REACTIONS ALLERGIES AND ADVERSE REACTIONS Code System Allergy Substance Adverse Reaction Date Reaction (Severity) [place] [id number] RXNorm Mirtazapine Adverse reaction to substance (Moderate) crazy active [id number] on April 10, 2025 8:28:34 PM UTC NICKEL (Free Text Allergy) Rash (Moderate) active [id number] on April 10, 2025 8:28:34 PM UTC 09301 RXNorm QUEtiapine Adverse reaction to substance (Moderate) crazy active [id number] on April 10, 2025 8:28:34 PM UTC FAMILY HISTORY RELATION: Father Status: Cause of : Unknown Age at : Unknown SNOMED-CT Diagnosis Age At Onset [id number] Malignant neoplastic disease RELATION: Mother Status: Cause of : Unknown Age at : Unknown SNOMED-CT Diagnosis Age At Onset [id number] Diabetes mellitus [id number] Chronic mental disorder RESULTS Patient: KRISTINE ALEGRE JR Date of : 1960 LABORATORY RESULTS ORDER 100: NT-PRO BNP (LOINC : 44055-8) ORDER DATE: April 10, 2025 8:35:00 PM UTC Specimen Source: PLASMA Specimen Type: Plasma specim en PERFORMING LAB: [address] [id number] Result Comment: Final Result Date: April 10, 2025 9:10:00 PM UTC (TECH: [facility]) LOINC TEST [place] [address]-9 Natriuretic peptide B [Mass or Moles/volume] in Serum or Plasma H 585.00 PG/ML 0.00 PG/ML - 125.00 PG/ML April 10, 2025 9:10:00 PM UTC (TECH: KAC) ORDER 200: CBC AUTO W DIFF ( LOINC: 20277-4) ORDER DATE: April 10, 2025 8:35:00 PM UTC Specimen Source: EDTA Specimen Type: Blood specime n with EDTA PERFORMING LAB: [address] [id number] Result Comment: Final Result Date: April 10, 2025 9:49:00 PM UTC (TECH: ADB) LOINC TEST FLAG RESULT REFERENCE RANGE UPDA JULI BY 6690-2 Leukocytes [#/volume] in Blood by Automated count H 11.3 K/ul 4.0 K/ul - 10.5 K/ul April 10, 2025 8:50:00 PM UTC (TECH: ADB) 789-8 Erythrocytes [#/volume] in Blood by Automated count L 3.5 M/mm3 4.7 M/mm3 - 6.1 M/mm3 April 10, 2025 8:50:00 PM UTC (TECH: ADB) 718-7 Hemoglobin [Mass/volume] in Blood L 12.4 gm/dl 13.5 gm/dl - 18.0 gm/dl April 10, 2025 8:50:00 PM UTC (TECH: ADB) 78663-2 Hematocrit [Volume Fraction] of Blood L 37.6 % 42.0 % - 52.0 % April 10, 2025 8:50:00 PM UTC (TECH: ADB) 787-2 Erythrocyte mean corpuscular volume [Entitic volume] by Automated count H 107.1 fl 78 fl - 100 fl April 10, 2025 8:50:00 PM UTC (TECH: ADB) 785-6 Erythrocyte mean corpuscular hemoglobin [Entitic mass] by Automated count H 35.3 pg 27 pg - 31 pg April 10, 2025 8:50:00 PM UTC (TECH: ADB) 786-4 Erythrocyte mean corpuscular hemoglobin concentration [Mass/volume] by Automated count N 33.0 g/dl 32 g/dl - 36 g/dl April 10, 2025 8:50:00 PM UTC (TECH: ADB) 90110-5 Erythrocyte distribution width [Ratio] H 14.1 % 11.5 % - 14.0 % April 10, 2025 8:50:00 PM UTC (TECH: ADB) 777-3 Platelets [#/volume] in Blood by Automated count N 331 K/ul 150 K/ul - 450 K/ul April 10, 2025 8:50:00 PM UTC (TECH: ADB) 87936-8 Platelet mean volume [Entitic volume] in Blood by Automated count N 8.5 fl 6 fl - 9.5 fl April 10, 2025 8:50:00 PM UTC (TECH: ADB) 97590-1 Neutrophils/100 leukocytes in Blood H 74.5 % 43 % - 65 % April 10, 2025 8:50:00 PM UTC (TECH: ADB) 736-9 Lymphocytes/100 leukocytes in Blood by Automated count L 13.6 % 20.5 % - 45.5 % April 10, 2025 8:50:00 PM UTC (TECH: ADB) 5905-5 Monocytes/100 leukocytes in Blood by Automated count N 9.7 % 5.5 % - 11.7 % April 10, 2025 8:50:00 PM UTC (TECH: ADB) 713-8 Eosinophils/100 leukocytes in Blood by Automated count L 0.8 % 0.9 % - 2.9 % April 10, 2025 8:50:00 PM UTC (TECH: ADB) 706-2 Basophils/100 leukocytes in Blood by Automated count N 0.5 % 0.2 % - 1.0 % April 10, 2025 8:50:00 PM UTC (TECH: ADB) 81203-1 Immature granulocytes/100 leukocytes in Blood by Automated count H 0.9 % 0.0 % - 0.8 % April 10, 2025 8:50:00 PM UTC (TECH: ADB) 21982-4 Nucleated cells [#/volume] in Blood N 0.0 % April 10, 2025 8:50:00 PM UTC (TECH: ADB) 10446-1 Neutrophils [#/volume] in Blood H 8.4 K/uL 2.2 K/uL - 4.8 K/uL April 10, 2025 8:50:00 PM UTC (TECH: ADB) 731-0 Lymphocytes [#/volume] in Blood by Automated count N 1.5 CELL/MCL 1.3 CELL/MCL - 2.9 CELL/MCL April 10, 2025 8:50:00 PM UTC (TECH: ADB) 742-7 Monocytes [#/volume] in Blood by Automated count H 1.1 CELL/MCL 0.3 CELL/MCL - 0.8 CELL/MCL April 10, 2025 8:50:00 PM UTC (TECH: ADB) 711-2 Eosinophils [#/volume] in Blood by Automated count N 0.1 CELL/MCL 0 CELL/MCL - 0.2 CELL/MCL April 10, 2025 8:50:00 PM UTC (TECH: ADB) 704-7 Basophils [#/volume] in Blood by Automated count N 0.1 CELL/MCL 0.0 CELL/MCL - 1.0 CELL/MCL April 10, 2025 8:50:00 PM UTC (TECH: ADB) 43648-3 Immature granulocytes [#/volume] in Blood N 0.10 K/ul April 10, 2025 8:50:00 PM UTC (TECH: ADB) 81373-6 Nucleated cells [#/volume] in Blood N 0.00 K/uL April 10, 2025 8:50:00 PM UTC (TECH: ADB) 76487-6 Manual Differential panel - Blood N NO April 10, 2025 8:50:00 PM UTC (TECH: ADB) 778-1 Platelets [#/volume] in Blood by Manual count N ADEQUATE ADEQUATE April 10, 2025 9:49:00 PM UTC (TECH: ADB) 9317-9 Platelet adequacy [Presence] in Blood by Light microscopy N NORMAL NORMAL April 10, 2025 9:49:00 PM UTC (TECH: ADB) 89260-7 Erythrocytes [Morphology] in Blood by Automated count ABNORMAL NORMAL April 10, 2025 9:49:00 PM UTC (TECH: ADB) 702-1 Anisocytosis [Presence] in Blood by Light microscopy N 1+ NONE SEEN April 10, 2025 9:49:00 PM UTC (TECH: ADB) 738-5 Macrocytes [Presence] in Blood by Light microscopy N 2+ NONE SEEN April 10, 2025 9:49:00 PM UT (TECH: ADB) ORDER 300: COMP METABOLIC PA MARIPOSA (LOINC: 36476-7) ORDER DATE: April 10, 2025 8:35:00 PM UT Specimen Source: PLASMA Specimen Type: Plasma specim en PERFORMING LAB: [address] [id number] Result Comment: Final Result Date: April 10, 2025 9:10:00 PM UT (TECH: KAC) LOINC TEST FLAG RESULT REFERENCE RANGE UPDA JULI BY 2951-2 Sodium [Moles/volume ] in Serum or Plasma L 134 mmol/L 136 mmol/L - 145 mmol/L April 10, 2025 9:00:[address] [facility] (TECH: KAC) 2823-3 Potassium [Moles/volume] in Serum or Plasma N 4.0 mmol/L 3.6 mmol/L - 5.0 mmol/L April 10, 2025 9:00:00 PM UT (TECH: KAC) 5-0 Chloride [Moles/volume] in Serum or Plasma L 97 mmol/L 98 mmol/L - 107 mmol/L April 10, 2025 9:00:00 PM UT (TECH: KAC) 2027-9 Carbon dioxide, tota l [Moles/volume] in Serum or Plasma N 28.9 mmol/L 21.0 mmol/L - 32.0 mmol/L April 10, 2025 9:00:00 PM UT (TECH: KAC) 67585-6 Anion gap in Blood N 12.1 S eptember 2024 9:00:00 PM UT (TECH: KAC) 2345-7 Glucose [Mass/volume ] in Serum or Plasma N 105 mg/dl 70 mg/dl - 120 mg/dl April 10, 2025 9:00:00 PM UT (TECH: KAC) 6299-2 Urea nitrogen [Mass/volume] in Blood N 15 mg/dL 7 mg/dL - 18 mg/dL April 10, 2025 9:00:00 PM UT (TECH: KAC) 07912-6 Creatinine [Moles/volume] in Blood N 1.0 mg/dL 0.6 mg/dL - 1.3 mg/dL April 10, 2025 9:00:[address] [facility] (Recommendi: [employer]) 49313-5 Glomerular filtratio n rate/1.73 sq M.predicted by Creatinine-based formula (MDRD) N 83 mlpermin 60 mlpermin April 10, 2025 9:00:[address] [facility] (Recommendi: [employer]) 87079-9 Osmolality of Serum or Plasma by calculated by sum of electrolytes N 280 mosm/kg 275 mosm/kg - 301 mosm/kg April 10, 2025 9:00:[address] [facility] (TECH: [employer]) 2885-2 Protein [Mass/volume ] in Serum or Plasma N 7.3 g/dl 6.4 g/dl - 8.2 g/dl April 10, 2025 9:10:[address] [facility] (Recommendi: [employer]) 1751-7 Albumin [Mass/volume ] in Serum or Plasma N 3.5 g/dl 3.4 g/dl - 5.0 g/dl April 10, 2025 9:10:[address] [facility] (Recommendi: [employer]) 2336-6 Globulin [Mass/volum e] in Serum N 3.8 April 10, 2025 9:10:00 PM UT (TECH: [employer]) 1759-0 Albumin/Globulin [Ma ss Ratio] in Serum or Plasma N 0.9 0.7 - 2 April 10, 2025 9:10:[address] [facility] (Recommendi: [employer]) 25953-1 Calcium [Mass/volume ] in Serum or Plasma N 8.8 mg/dl 8.5 mg/dl - 10.5 mg/dl April 10, 2025 9:00:[address] [facility] (Recommendi: [employer]) 1975-2 Bilirubin.total [Mass/volume] in Serum or Plasma N 0.50 mg/dL 0.10 mg/dL - 1.00 mg/dL April 10, 2025 9:10:[address] [facility] (TECH: [employer]) 1920-8 Aspartate aminotransferase [Enzymatic activity/volume] in Serum or Plasma N 26 U/L 0 U/L - 37 U/L April 10, 2025 9:10:00 PM UT (TECH: [employer]) 1742-6 Alanine aminotransferase [Enzymatic activity/volume] in Serum or Plasma N 31 U/L 0 U/L - 65 U/L April 10, 2025 9:10:00 PM UT (TECH: KAC) 6768-6 Alkaline phosphatase [Enzymatic activity/volume] in Serum or Plasma N 103 U/L 46 U/L - 116 U/L April 10, 2025 9:10:00 PM UTC (TECH: KAC) ORDER 400: TROPONIN I FOLLOW -UP HIGH SENS (LOINC: 74402-6) ORDER DATE: April 10, 2025 8:35:00 PM UTC Specimen Source: PLASMA Specimen Type: Plasma specim en PERFORMING LAB: [address] [id number] Result Comment: Final Result Date: April 10, 2025 10:29:00 PM UT (TECH: AY) LOINC TEST FLAG [place] [address]-0 Troponin I.cardiac [Mass/volume] in Serum or Plasma N 10 ng/L 0 ng/L - 76 ng/L April 10 10:29:00 PM UT (TECH: AY) ORDER 500: TROPONIN I QUANT HIGH SENS. (LOINC: 23943-4) ORDER DATE: April 10, 2025 8:35:00 PM UT Specimen Source: PLASMA Specimen Type: Plasma specim en PERFORMING LAB: [address] [id number] Result Comment: Final Result Date: April 10, 2025 9:09:00 PM UT (TECH: KAC) LOINC TEST FLAG [place] [address]-0 Troponin I.cardiac [Mass/volume] in Serum or Plasma N 10 ng/L 0 ng/L - 76 ng/L April 10 9:09:00 PM UT (TECH: KAC) LABORATORY NARRATIVE RESULTS Information is not available RADIOLOGY RESULTS ORDER 800: CTA CHEST AORTA ( LOINC: 25247-5) ORDER DATE: April 10, 2025 9:11:00 PM UTC PERFORMING LAB: [address] [id number] Final Result Date: April 10, 2025 10:02:[address] [address] Name: CODEY CARMONA Exam Date: 04/10/2025 : 1960 Age 64 years Gender: M Physician: JANET ABARCA Facility: [facility] Facility HSV: Outpatient Exam: CTA CHEST AORTA EXAM: CT CHEST ANGIOGRAPHY WITH IV CONTRAST, CT ABDOMEN ANGIOGRAPHY WITH IV CONTRAST HISTORY: Chest Pain w/o Trauma/Injury. COMPARISON: None. TECHNIQUE: CT angiography of the chest and abdomen was performed following the intravenous administration of contrast. Reconstructed MPR/MIP images in the sagittal and coronal planes were reviewed. CT scans at this facility use dose modulation, iterative reconstruction and/or weight based dosing when appropriate to reduce radiation dose to as low as reasonably achievable. CHEST FINDINGS: The thoracic aorta is normal caliber with no evidence for aneurysm or dissection. Borderline cardiomegaly is evident. There is no pericardial effusion or pleural effusion. There is no thoracic lymphadenopathy. The esophagus is within normal limits. Very mild subpleural chronic interstitial fibrotic changes are present predominantly near the apices bilaterally. There are no focal areas of consolidation or acute interstitial change. The central airways are clear. No pneumothorax. No acute osseous abnormality. IMPRESSION: No evidence for thoracic aortic aneurysm or dissection. ABDOMEN FINDINGS: Abdominal aorta is normal caliber with no evidence for aortic aneurysm or dissection. The celiac artery and its trifurcation are patent. The superior mesenteric artery is patent. The renal arteries are patent bilaterally. The inferior mesenteric artery is patent. The common iliac arteries are patent bilaterally. The liver, gallbladder, pancreas, spleen, adrenal glands, and kidneys are within normal limits. The stomach is unremarkable. The imaged small bowel loops and colon are within normal limits. There is no ascites, inflammatory stranding in the mesentery or pneumoperitoneum. No abdominal lymphadenopathy. No acute osseous abnormality. IMPRESSION: No evidence for abdominal aortic aneurysm or dissection. Electronically signed by: Isidro Alonzo MD 04/10/2025 06:02 PM EDT Dictated By: Isidro Alonzo Transcribed By: Transcribed On: 04/10/2025 6:02 PM Legally authenticated by GINA Villatoro 2025-04-10 18:02:24 Electronically signed by: Isidro Alonzo 04/10/2025 Thank you for referring CODEY CARMONA to [facility]. Legally authenticated by GINA Villatoro 2025-04-10 18:02:24 ORDER 900: CTA ABD W/CONT (L OINC: 61709-6) ORDER DATE: April 10, 2025 9:14:[address] [facility] PERFORMING LAB: [facility] [address] [facility] [place] [id number] Final Result Date: April 10, 2025 10:02:24 PM [facility] [address] [place] [address] Name: CODEY CARMONA Exam Date: 04/10/2025 : 1960 Age 64 years Gender: M Physician: JANET ABARCA Facility: [facility] Facility HSV: Outpatient Exam: CTA ABD W/CONT EXAM: CT CHEST ANGIOGRAPHY WITH IV CONTRAST, CT ABDOMEN ANGIOGRAPHY WITH IV CONTRAST HISTORY: Chest Pain w/o Trauma/Injury. COMPARISON: None. TECHNIQUE: CT angiography of the chest and abdomen was performed following the intravenous administration of contrast. Reconstructed MPR/MIP images in the sagittal and coronal planes were reviewed. CT scans at this facility use dose modulation, iterative reconstruction and/or weight based dosing when appropriate to reduce radiation dose to as low as reasonably achievable. CHEST FINDINGS: The thoracic aorta is normal caliber with no evidence for aneurysm or dissection. Borderline cardiomegaly is evident. There is no pericardial effusion or pleural effusion. There is no thoracic lymphadenopathy. The esophagus is within normal limits. Very mild subpleural chronic interstitial fibrotic changes are present predominantly near the apices bilaterally. There are no focal areas of consolidation or acute interstitial change. The central airways are clear. No pneumothorax. No acute osseous abnormality. IMPRESSION: No evidence for thoracic aortic aneurysm or dissection. ABDOMEN FINDINGS: Abdominal aorta is normal caliber with no evidence for aortic aneurysm or dissection. The celiac artery and its trifurcation are patent. The superior mesenteric artery is patent. The renal arteries are patent bilaterally. The inferior mesenteric artery is patent. The common iliac arteries are patent bilaterally. The liver, gallbladder, pancreas, spleen, adrenal glands, and kidneys are within normal limits. The stomach is unremarkable. The imaged small bowel loops and colon are within normal limits. There is no ascites, inflammatory stranding in the mesentery or pneumoperitoneum. No abdominal lymphadenopathy. No acute osseous abnormality. IMPRESSION: No evidence for abdominal aortic aneurysm or dissection. Electronically signed by: Isidro Alonzo MD 04/10/2025 06:02 PM EDT Dictated By: Isidro Alonzo Transcribed By: Transcribed On: 04/10/2025 6:02 PM Legally authenticated by GINA Villatoro 2025-04-10 18:02:24 Electronically signed by: Isidro Alonzo 04/10/2025 Thank you for referring CODEY CARMONA to [facility]. Legally authenticated by GINA Villatoro 2025-04-10 18:02:24 PATHOLOGY NARRATIVE RESULTS Information is not available MICROBIOLOGY RESULTS No Micro Labs/Results Exist for Patient BLOOD ADMIN RESULTS Information is not available MEDICATIONS HOME MEDICATIONS Status RXNORM NDC Medication Dose Route Frequency Dates Comments Reported By Updated By Drug Treatment Unknown DISCHARGE MEDICATIONS Status RXNORM NDC Medication Dose Route Frequency Dates Dis pense Data Comments Physician Updated By No Discharge Medication Info rmation Available INPATIENT MEDICATIONS Status RXNORM NDC Medication Dose Route Frequency Rat e Quantity Dates Indication Dispense Data Comments Physician Updated By No Inpatient Medication Info rmation Available SOCIAL HISTORY SOCIAL HISTORY - Smoking Status SNOMED-CT Social History Element Description Effective Dates Offered Cessation Comment Updated By [id number] Current Tobacco smoking status Current Every Day Smoker [id number] on April 10, 2025 8:28:[address] [facility] SOCIAL HISTORY - Gender Sex: Male SOCIAL HISTORY - Status : status i nformation is not available Intention in Next Year: intention information is not available SOCIAL HISTORY - Assessments Code System Description Status Date Value of Assessment Updated By Comment Assessment Information is no t available SOCIAL HISTORY - Comanche Affiliation Comanche information is not av ailable SOCIAL HISTORY [...] for each vital sign as of April 17, 2025 5:29:[address] [facility] Loinc Code Vital Sign Activity Date Result Updated By 8302-2 Body height April 10 8:27:26 PM UTC 182.88 cm (72.0 in) [id number] on April 10, 2025 8:27:26 PM UTC 48552-2 Body mass index (BMI ) [Ratio] April 10, 2025 8:27:26 PM UTC 37.973 kg/m2 3140-1 Body Surface Area Derived From Formula April 10, 2025 8:27:26 PM UTC 2.4578 m2 51118-3 Body weight Measured April 8:27:26 PM UTC 127.0 kg (280.0 lb) [id number] on April 10, 2025 8:27:26 PM UTC 8462-4 Diastolic blood pressure April 10, 2025 11:47:00 PM UTC 75.0 mm[Hg] 8867-4 Heart rate April 10 11:47:00 PM UTC 71 /min 76762-1 Oxygen saturation in Arterial blood by Pulse oximetry April 10, 2025 11:47:00 PM UTC 96.0 % 9279-1 Respiratory rate April 10 10:50:00 PM UTC 20 /min 8480-6 Systolic blood pressure April 10, 2025 11:47:00 PM UTC 134.0 mm[Hg] PEDIATRIC GROWTH CHART - VITAL SIGNS This section displays Head C ircumference Percentile, Weight for Length Percentile and BMI Percentile Loinc Code Pediatric Measure Age (Months) Result Updat ed By No Pediatric Growth Chart Pe rcentile Information Available. HEALTH CONCERNS Problems Concern Status Health Concern problem infor mation not available. Smoking Status Status Years Used Consumed packs p er day Health Concern smoking histo ry information not available. Family History Concern Status Health Concern family histor y information not available. ENCOUNTERS ENCOUNTER INFORMATION Reason for Visit CHEST PAIN Admission April 10, 2025 8:14:00 PM UTC [address] [id number] Discharge April 10, 2025 11:47:00 PM UT C DISCHARGED TO HOME OR SELF CARE ENCOUNTER DIAGNOSES Notes information is not todd ilable. Code System Diagnosis Onset Date Diagnosis information is not available. ABSTRACT DIAGNOSES Code System Diagnosis Updated By Abatement Date R07.9 ICD10 CHEST PAIN, UNSPECIFIED BIL3 519 on April 17, 2025 5:29:08 AM UTC M79.601 ICD10 PAIN IN RIGHT ARM [id number] on April 17, 2025 5:29:09 AM UT M79.602 ICD10 PAIN IN LEFT ARM [id number] on April 17, 2025 5:29:09 AM UT R07.9 ICD10 CHEST PAIN, UNSPECIFIED BIL3 519 on April 17, 2025 5:29:09 AM UT R00.1 ICD10 BRADYCARDIA, UNSPECIFIED AD 3519 on April 17, 2025 5:29:09 AM UT I89.0 ICD10 LYMPHEDEMA, NOT ELSEWHERE CLASSIFIED [id number] on April 17, 2025 5:29:09 AM UT I25.2 ICD10 OLD MYOCARDIAL INFARCTION BI L3519 on April 17, 2025 5:29:09 AM UT Z72.0 ICD10 TOBACCO USE [id number] on Apr 5:29:09 AM UT Z88.8 ICD10 ALLERGY STATUS T O OTHER DRUGS, MEDICAMENTS AND BIOLOGICAL SUBSTANCES [id number] on April 17, 2025 5:29:09 AM UT 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 CARE TEAM Care Three Dimensional Art Instructor Role JULI CARTER Admitting DEFINED NO Referring JULI CARTER Primary Attending DEAN SAMUEL Primary Care CARE TEAM CARE pitch gatherer Role on Team Location Telecom Status Start Date End Leo e Updated By NO DEFINED PRIMARY C Referring normal April 10, 2025 8:56:[address] [facility] April 10, 2025 11:47:[address] [facility] [id number] on April 10, 2025 8:56:[address] [facility] RAUL BOLDEN Attending normal April 10, 2025 8:56:[address] [facility] April 10, 2025 11:47:[address] [facility] [id number] on April 10, 2025 8:56:[address] [facility] RAUL BOLDEN Admitting normal April 10, 2025 8:56:[address] [facility] April 10, 2025 11:47:[address] [facility] [id number] on April 10, 2025 8:56:[address] [facility]MIE [facility] normal April 10, 2025 8:14:[address] [facility] April 10, 2025 11:47:[address] [facility] [id number] on April 10, 2025 8:56:[address] [facility]
--- OUTSIDE RECORDS SUMMARY | 2025-05-14 14:30 | XMS_ITS | Encounter Summary ---
Author Organization [facility] Address [address] [place] [address] Care Team Providers Care Technical Sales Advisor Name Role Phone Jennifer Newton APRN Primary Care Provid er Reason for Visit * Reason Comments Seropositive rheumatoid arthritis Encounter Details Date Type Department Care Team (Latest Contact Info) Description 05/14/2025 2:30 PM EDT Office Visit [facility] RHEUMATOLOGY [address] [phone] Valeria Machuca APRN [address] [phone] Seropositive rheumatoid arthritis (Primary Dx); Immunodeficiency due [...] normal, DS DNA normal, Ribosomal P normal, HUMAN FACTORS SCIENTIST normal, SCL 70 normal, Morrow normal, SSA [...] up with dermatology for further investigation * Vlaeria Machuca APRN - 05/14/2025 2:30 PM EDTAssociated [...] help him some. 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 He is followed by Asad Romo reports he does not feel like [...] normal, DS DNA normal, Ribosomal P normal, HUMAN FACTORS SCIENTIST normal, SCL 70 normal, Morrow normal, SSA [...] has since improved. Paranoid schizophrenia He sees [facility] for Behavioral health. He missed his last [...] Sven Gonzales Lindsie APRN. Valeria Machuca APRN [facility] [place] documented in this encounter Plan of Treatment Upcoming Encounters Date Type Department Care Team (Late st Contact Info) Description 09/10/2025 3:00 PM EST Office Visit [facility] RHEUMATOLOGY [address] [phone] Valeria Machuca APRN 330 [facility] [address] [place] [address] 01/07/2026 3:45 PM EDT Office Visit [facility] RHEUMATOLOGY 330 [facility] [address] [place] [address] Damien Cosme DO 330 [facility] [address] [place], [place] [phone] documented as of this encounter Goals Goal [...] buttock documented in this encounter Care Teams Technical Sales Advisor Relationship Specialty Start Date End Date Jennifer Newton APRN [address] [facility] [address] [place] [address] PCP - General Family Medicine 03/20/24 documented as of this encounter
[2025-05-20] VITALS (18 sets, daily range): BP systolic 90–128; BP diastolic 45–79; PULSE 50–69; RESP 13–22; TEMP 36.4–36.9; O2SAT 94–99; BMI 35.2; BMI 40.1
--- NOTE | 2025-05-20 11:47 | ECG_ITS ---
APPROVED REPORT Exam: Resting ECG HR:56 bpm ECG Measurements Heart Rate 56 AXES PA 175 P 77 QRSd 132 QRS -53 QT 434 T 30 QTc 427 Conclusion SINUS BRADYCARDIA INTRAVENTRICULAR CONDUCTION DELAY [130+ ms QRS DURATION] POSSIBLE LEFT VENTRICULAR HYPERTROPHY [VOLTAGE CRITERIA PLUS LAE OR QRS WIDENING] ABNORMAL ECG UNCONFIRMED REPORT Electronically signed by : CLAUDETTE MARTINEZ, 05/22/2025 02:52:48
--- OUTSIDE RECORDS SUMMARY | 2025-05-20 11:53 | XMS_ITS ---
Author Organization [facility] Address [address] [place] [address] Care Team Providers Care Batch Unit Treater Name Role Phone Jennifer Newton APRN Primary Care Provid er Rheumatology - External Fill Status:Enrolled (Active) Start date:01/16/2025 Enrollment date:01/16/2025 Enrollment reason:Identified as being on target medication Current support & services provided:Benefits Investigation, External Pharmacy Dispensing Linked medications:Adalimumab (Active) Linked problems:Seropositive rheumatoid arthritis (Active) Overview Maddi KAUFFMAN approved through 08.01.25 Continued Care and Services Coordination
--- OUTSIDE RECORDS SUMMARY | 2025-05-20 11:53 | XMS_ITS | Encounter Summary ---
Author Organization [facility] Address [address] [place] [address] Care Team Providers Care [employer] [facility] Name Role Phone Savage Reardon MD Primary Care Provider [phone] Clayton James MD Unavailable [phone] Reason for Visit * Reason Comments Med Refill Encounter Details Date Type Department Care Team (Late st Contact Info) Description 03/21/2025 Refill [place] [facility] [address] [place] [address] Clayton James MD [address] [place] [address] Degeneration of intervertebral disc of [...] documented as of this encounter Care Teams [employer] Relationship Specialty Start Date End Date Savage Reardon MD [address] [place] [address] PCP - General 12/13/20 Clayton James MD [address] [place] [address] Surgeon Neurosurgery 09/22/24 documented as of this encounter
--- OUTSIDE RECORDS SUMMARY | 2025-05-20 11:53 | XMS_ITS | Continuity of Care Document ---
Author Organization [facility] Address [address] [facility] [address] [place] [address] Care Team Providers Care Nursing Teacher Name Role Phone DEAN SAMUEL Primary Care Provider Assessment No assessment recorded. Plan of Treatment Reminders Order Date Submit Date Provider Last Modified By Organization Details Last Modified Time Details Appointments None record ed. Lab None record ed. Referral None record ed. Procedures None record ed. Surgeries None record ed. Imaging None record ed. Medication Orders None record ed. Patient TargetsNo targets recorded. Patient InstructionsNo instructions recorded. Reason for Referral None Reported. Results Created Date Observation Date Name Description Value Unit Range Abnormal Flag Note LastModifiedBy Organization Detail LastModifiedTime 03/14/2003/14/2025 bladd er scan (PROC ) Calculated Residual Urine: 148 ml Not Available [facility] [address] [facility] [address], [place], [address], 02/16/2025 10:20:55 03/27/2003/27/2025 BASIC METAB OLIC PANEL sodium 140 mmol/ L 136-14 5 Not Available [facility] [address] [facility], [place], [address], 03/27/2025 10:02:51 03/27/2003/27/2025 BASIC METAB OLIC PANEL potassium 4.2 mmol/ L 3.6-5. 0 Not Available [facility] [address] [facility], [place], [address], 03/27/2025 10:02:51 03/27/20 25 03/27/2025 BASIC METAB OLIC PANEL chloride 104 mmol/ L 98-107 Not Available [facility] [address] , [place], [address], 03/27/2025 10:02:51 03/27/20 25 03/27/2025 BASIC METAB OLIC PANEL carbon dioxide 24.7 mmol/ L 21.0-3 2.0 Not Available [facility] [address] , [place], [address], 03/27/2025 10:02:51 03/27/20 25 03/27/2025 BASIC METAB OLIC PANEL anion gap 15.5 Not Available [facility] ([facility]) [address] , [place], [address], 03/27/2025 10:02:51 03/27/20 25 03/27/2025 BASIC METAB OLIC PANEL glucose 112 mg/dL 70-120 Not Available [facility] [address] [place], [address], 03/27/2025 10:02:51 03/27/20 25 03/27/2025 BASIC METAB OLIC PANEL BUN 19 mg/dL 7-18 high Not Available [facility] [address] [place], [address], 03/27/2025 10:02:51 03/27/20 25 03/27/2025 BASIC METAB OLIC PANEL creatinine 1.1 mg/dL 0.6-1. 3 Not Available [facility] [address] [place], [address], 03/27/2025 10:02:51 03/27/20 25 03/27/2025 BASIC METAB OLIC PANEL glomerular filtration rate 74 mlper min 60- GFR LIMIT ATION : The eGFR equat ion CKD-E PI 2020 is not appli cable for pedia tric patie nts or great er than 90 years of age. The follo wing condi tions may alter the GFR resul t: extre mes in body size, malnu triti on or obesi ty, skele kaleigh muscl e disea se, parap legia or quadr ipleg ia, veget chetan diet or rapid ly marcum ing kiney funct ion. Not Available [facility] ([facility]) [address], [place], [address], 03/27/2025 10:02:51 03/27/20 25 03/27/2025 BASIC METAB OLIC PANEL osmolality (calculated) 294 mOsm/ kg 275-30 1 OSMOL ALITY IS A CALCU LATIO N UTILI ZING THE SERUM /PLAS MA SODIU M, GLUCO SE AND UREA NITRO GEN (BUN) LEVEL S. FOR THE MOST ACCUR ATE RESUL T A MEASU RED SERUM OSMOL ALITY IS SUGMELISSA WELCH. Not Available [facility] ([facility]) [address], [place], [address], 03/27/2025 10:02:51 03/27/2003/27/2025 BASIC METAB OLIC PANEL calcium 8.7 mg/dL 8.5-10 .5 Not Available [facility] [address], [place], [address], 03/27/2025 10:02:51 04/03/2004/03/2025 PATHO LOGY SPECI MEN pathology specimen SEE REPORT Not Available [facility] ([facility] [address], [place], [address], 04/03/2025 09:00:57 Result Notes None recorded. Problems Name Problem SNOMED Code Status Onset Date Resolution Date Notes Provider Name and Address Organization Details Recorded Time Poor stream of urine 995119903 Active 2024 VIPIN DIALLO MD [address], [place], [address] , [facility] & [place] 5 10:43:53 Increased frequency of urination 373166457 Active [address], [place], [address] , [place] - [facility] [place] & [place] 5 10:43:56 Urge incontinence of urine 00891227 Active [address], [place], [address] , [place] - [facility] [place] & [place] 5 10:44:01 Nocturia 198718232 Active [address], [place], [address] , [place] - [facility] [place] & [place] 10:44:04 Retention of urine 374158579 Active [address], [place], [address] , [place] - [facility] [place] & [place] 12:42:28 Problem Notes None recorded. Procedures Surgical History Date Name Laterality Status Provider Name and Address Organization Details Recorded Time 04/10/20 25 TOW MOTOR OPERATOR Test completed Sharda DIAS - [facility] - [place] & [place] 04/10/2025 16:32:49 04/06/20 25 Cavanaugh Catheter Insertion completed Sharda DIAS - [facility] [place] & [place] 04/06/2025 12:56:18 04/03/20 25 Cavanaugh Catheter Insertion completed Sharda Marquis [place] - [facility] - [place] & [place] 04/03/2025 11:32:51 03/01/20 25 Cystoscopy-Male completed MD [address], [place], [address], [place] - [facility] [place] & [place] 03/01/2025 13:41:28 03/01/20 25 TRUS completed MD [address], [place], [address], [place] - [facility] [place] & [place] 03/01/2025 13:40:58 08/02/19 24 Other completed Andralucy Portert LARISSA - [facility] - [place] & [place] 04/06/2025 11:11:20 08/02/19 24 Cardiovascular Surgery completed Andralucy AyonPoli LARISSA - [facility] - [place] & [place] 04/06/2025 11:11:20 08/02/19 22 ENT Surgery completed Andra Poli LARISSA - [facility] - [place] & [place] 04/06/2025 11:11:20 08/02/19 17 Cardiovascular Surgery completed Andralucy Portert LARISSA - [facility] - [place] & [place] 04/06/2025 11:11:20 08/02/19 11 Head or Neck Surgery completed Andra Poli LARISSA - [facility] - [place] & [place] 04/06/2025 11:11:20 08/02/19 07 Cardiovascular Surgery completed Andra [place] LARISSA - [facility] - [place] & [place] 04/06/2025 11:11:20 08/02/18 74 Abdominal Surgery completed Andra DIAS - [facility] - [place] & [place] 04/06/2025 11:11:20 insertion of carotid artery stent completed Chelsey DIAS - GE[facility] & [place] 02/16/2025 11:17:35 hernia repair completed Chelsey TELLEZ [facility] & [place] 02/16/2025 11:17:46 Imaging Results None recorded. Procedure Notes None recorded. Medical Equipment None Reported. Allergies Allergen ID Allergen Name Allergen Category Reaction Reaction Severity Criticality Documentation Date Start Date Code Code System Note Provider Name and Address Organization Details Recorded Time 115470 nickel environme nt other severe Not available 02/16/2025 49766 29 RxNorm LARISSA Aadms - [facility] - [place] & [place] 10:48:35 993715 Non-stero idal anti-infl ammatory agent (substanc e) medicatio n Not available Not available Not available 02/16/2025 89529 5008 SNOMED LARISSA Adams - [facility] & [place] 10:49:39 Medications Name Sig Start Date Stop Date Status Note LastModified by Organization Details LastModified Time furosemide 40 mg tablet TAKE TWO TABLETS BY MOUTH EVERY DAY active Not Available Not Available No t Available methocarbam ol 500 mg tablet TAKE ONE TABLET BY MOUTH EVERY 8 HOURS NEEDED FOR MUSCLE SPASMS 04/06 completed Not Available Not Available Not Available lamotrigine 150 mg tablet TAKE ONE TABLET BY MOUTH TWICE DAILY active Not Available Not Available No t Available atorvastati n 80 mg tablet TAKE ONE TABLET BY MOUTH EVERY DAY AT BEDTIME active Not Available Not Available No t Available gabapentin 600 mg tablet TAKE ONE TABLET BY MOUTH THREE TIMES DAILY MAY CAUSE DROWSINES S active Not Available Not Available No t Available doxycycline hyclate 100 mg capsule TAKE ONE CAPSULE BY MOUTH TWICE DAILY FOR 7 DAYS -- FINISH ALL MEDICINE -- --TAKE WITH FOOD-- 04/06 completed Not Available Not Available Not Available ipratropium 0.5 mg-albutero l 3 mg (2.5 mg base)/3 mL nebulizatio n soln INHALE THE CONTENTS OF 1 VIAL VIA NEBULIZER BY MOUTH EVERY 6 HOURS NEEDED FOR SHORTNESS OF BREATH OR wheezing active Not Available Not Available No t Available clindamycin HCl 300 mg capsule TAKE TWO CAPSULES BY MOUTH 1 HOUR PRIOR TO PROCEDURE 04/06 completed Not Available Not Available Not Available trazodone 50 mg tablet TAKE ONE TABLET BY MOUTH EVERY EVENING FOR insomnia active Not Available Not Available No t Available nicotine (polacrilex ) 2 mg gum chew 1 piece of gum EVERY 2 HOURS NEEDED FOR nicotine cravings active Not Available Not Available No t Available ofloxacin 0.3 % eye drops INSTILL ONE DROP INTO THE OPERATIVE EYE FOUR TIMES DAILY FOR 7 DAYS active Not Available Not Available No t Available metoprolol succinate ER 100 mg tablet,exte nded release 24 hr TAKE 1 AND 1/2 TABLET BY MOUTH TWICE DAILY active Not Available Not Available No t Available clonazepam 1 mg tablet TAKE ONE TABLET BY MOUTH TWICE DAILY NEEDED FOR ANXIETY FOR 3 DAYS active Not Available Not Available No t Available amlodipine 2.5 mg tablet TAKE ONE TABLET BY MOUTH EVERY DAY 04/06 completed Not Available Not Available Not Available potassium chloride ER 10 mEq tablet,exte nded release TAKE ONE TABLET BY MOUTH EVERY DAY active Not Available Not Available No t Available clopidogrel 75 mg tablet TAKE ONE TABLET BY MOUTH EVERY DAY active Not Available Not Available No t Available amlodipine 5 mg tablet TAKE ONE TABLET BY MOUTH EVERY DAY 04/06 completed Not Available Not Available Not Available tramadol 50 mg tablet TAKE ONE TABLET BY MOUTH EVERY 6 HOURS NEEDED FOR moderate pain (4-6 ON pain scale) MAY CAUSE DROWSINES S active Not Available Not Available No t Available triamcinolo ne acetonide 0.1 % topical cream APPLY TOPICALLY TO THE AFFECTED AREA(S) TWICE DAILY active Not Available Not Available No t Available lamotrigine 25 mg tablet TAKE ONE TABLET BY MOUTH TWICE DAILY WITH LAMOTRIGI NE 150 MG. IF YOU DEVELOP A RASH, STOP THE MEDICATIO N AND CALL THE CLINIC active Not Available Not Available No t Available ketorolac 0.5 % eye drops STARTNG 3 DAYS BEFORE SURGERY, INSTILL 1 DROP INTO THE OPERATIVE EYE FOUR TIMES DAILY FOR 10 DAYS THEN DECREASE TO TWICE DAILY FOR 14 DAYS active Not Available Not Available No t Available isosorbide mononitrate ER 60 mg tablet,exte nded release 24 hr TAKE 1 AND 1/2 TABLET BY MOUTH TWICE DAILY active Not Available Not Available No t Available ziprasidone 20 mg capsule TAKE ONE CAPSULE BY MOUTH TWICE DAILY take with meals OR snack active Not Available Not Available No t Available prednisolon e acetate 1 % eye drops,suspe nsion INSTILL 1 DROP INTO THE OPERATIVE EYE FOUR TIMES DAILY FOR 7 DAYS THEN DECREASE TO 1 DROP TWICE DAILY FOR 14 DAYS active Not Available Not Available No t Available methocarbam ol 750 mg tablet TAKE ONE TABLET BY MOUTH THREE TIMES DAILY MAY CAUSE DROWSINES S active Not Available Not Available No t Available methotrexat e sodium 2.5 mg tablet TAKE EIGHT TABLETS BY MOUTH one time PER WEEK active Not Available Not Available No t Available tamsulosin 0.4 mg capsule TAKE ONE CAPSULE BY MOUTH EVERY DAY active Not Available Not Available No t Available trazodone 100 mg tablet take 1-1.5 tabs BY MOUTH EVERY DAY AT BEDTIME DIRECTED active Not Available Not Available No t Available amlodipine 10 mg tablet TAKE ONE TABLET BY MOUTH EVERY DAY active Not Available Not Available No t Available doxycycline monohydrate 100 mg capsule TAKE ONE CAPSULE BY MOUTH TWICE DAILY FOR 10 DAYS -- FINISH ALL MEDICINE -- 04/06 completed Not Available Not Available Not Available pantoprazol e 40 mg tablet,regina yed release TAKE ONE TABLET BY MOUTH EVERY DAY active Not Available Not Available No t Available nitroglycer in 0.4 mg sublingual tablet DISSOLVE 1 TABLET UNDER THE TONGUE EVERY 5 MINUTES NEEDED FOR CHEST PAIN. DO NOT EXCEED A TOTAL OF 3 DOSES IN 15 MINUTES. IF NO RELIEF AFTER 3 DOSES CALL 911/GO TO ER active Not Available Not Available No t Available betamethaso ne dipropionat e 0.05 % topical cream apply TO RASH ON LEFT elbow AREA TWICE DAILY FOR 3 WEEKS THEN take 1 WEEK break. REPEAT NEEDED. DO not USE ON face, groin, OR underarms active Not Available Not Available No t Available oxybutynin chloride ER 5 mg tablet,exte nded release 24 hr TAKE ONE TABLET BY MOUTH EVERY DAY active Not Available Not Available No t Available gabapentin 300 mg capsule TAKE ONE CAPSULE BY MOUTH THREE TIMES DAILY MAY CAUSE DROWSINES S active Not Available Not Available No t Available folic acid 1 mg tablet TAKE TWO TABLETS BY MOUTH EVERY DAY EXCEPT THE DAY YOU TAKE METHOTREX ATE active Not Available Not Available No t Available ziprasidone 40 mg capsule TAKE ONE CAPSULE BY MOUTH TWICE DAILY with food (meal/sna ck) active Not Available Not Available No t Available mirtazapine 15 mg tablet TAKE 1/2 TO 1 TABLET BY MOUTH EVERY DAY active Not Available Not Available No t Available methylpredn isolone 4 mg tablets in a dose pack TAKE ACCORDING TO PACKAGE INSTRUCTI ONS --TAKE WITH FOOD-- -- FINISH ALL MEDICINE -- active Not Available Not Available No t Available cefdinir 300 mg capsule TAKE ONE CAPSULE BY MOUTH TWICE DAILY FOR 5 DAYS -- FINISH ALL MEDICINE -- 04/06 completed Not Available Not Available Not Available spironolact one 50 mg tablet TAKE ONE TABLET BY MOUTH EVERY DAY active Not Available Not Available No t Available dutasteride 0.5 mg capsule TAKE ONE CAPSULE BY MOUTH EVERY DAY active Not Available Not Available No t Available aripiprazol e 20 mg tablet TAKE ONE TABLET BY MOUTH EVERY DAY active Not Available Not Available No t Available potassium chloride ER 10 mEq tablet,exte nded release(par t/cryst) TAKE ONE TABLET BY MOUTH EVERY DAY 04/06 completed Not Available Not Available Not Available varenicline tartrate 0.5 mg (11)-1 mg (42) tablets in a dose pack TAKE ACCORDING TO PACKAGE INSTRUCTI ONS active Not Available Not Available No t Available Symbicort 160 mcg-4.5 mcg/actuati on HFA aerosol inhaler INHALE TWO PUFFS BY MOUTH TWICE DAILY --SHAKE WELL BEFORE USE-- --RINSE MOUTH AFTER USE-- active Not Available Not Available No t Available ranolazine ER 1,000 mg tablet,exte nded release,12 hr TAKE ONE TABLET BY MOUTH TWICE DAILY active Not Available Not Available No t Available GaviLyte-G 236 gram-22.74 gram-6.74 gram-5.86 gram oral solution mix DIRECTED, THEN drink 8 ounces (1 cup) EVERY 15 minutes UNTIL 1/2 of THE gallon is remaining . refrigera te remaining AND continue CLEAR liquids UNTIL midnight. 5-6 hours BEFORE exam, drink 8 ounces (1 cup) EVERY 15 minutes UNTIL finished active Not Available Not Available No t Available diclofenac 1.5 % topical drops APPLY TO AFFECTED NAILS BEFORE USING SOLUTION/ OINTMENT TREATMENT (30 DAY SUPPLY) active Not Available Not Available No t Available Trelegy Ellipta 100 mcg-62.5 mcg-25 mcg powder for inhalation INHALE 1 PUFF BY MOUTH EVERY DAY active Not Available Not Available No t Available Vitals Date Recorded Body height Provider Name an d Address Organization Details Last Updated DateTime 04/10/2025 177.8 cm Sharda Marquis [facility] & [place] 04/10/2025 15:01:19 Social History Question Answer Notes LastModified by [employer] Details LastModified Time Tobacco Smoking Status Current Every Day Smoker Chelsey guy, [facility] & [place] 02/16/2025 10:53:51 Do You Have An Advance Directive? No Information not available 04/06/2025 Are You Blind Or Do You Have Difficulty Seeing? Yes Information not available 04/06/2025 What Was The Date Of Your Most Recent Tobacco Screening? 02/15/2025 Information not available 04/06/2025 Are You Passively Exposed To Smoke? Yes Information not available 04/06/2025 How Much Tobacco Do You Smoke? 1 PPD Information not available 04/06/2025 How Many Years Have You Smoked Tobacco? 53 Information not available 04/06/2025 Sex: Unknown Functional Status Question Answer Note LastModified by Organizat ion Details LastModified Time Do you use any illicit or recreational drugs? Yes Information not available 04/06/2025 What is your level of alcohol consumption? Occasional [email or web address] Information not available 02/16/2025 Do you or have you ever used smokeless tobacco? Never used smokeless tobacco Information not available 04/06/2025 What is your exercise level? Occasional Information not available 04/06/2025 Mental Status Question Answer Note LastModified by Organization D etails LastModified Time Do you feel stressed (tense, restless, nervous, or anxious, or unable to sleep at night)? [id number] Information not available 04/06/2025 Family History Relationship Description Onset Age of this Age Resolved Age Notes LastModified by Organization Details LastModified Time Mother Disorder of endocrine system pt. added direct ly (02/15) [email or web address] Not available 02/15/2025 11:14:50 Mother Thyroid dysfunction [email or web address] Not available 04/2025 14:55:53 Mother Diabetes mellitus [email or web address] Not available 2024 14:55:53 Father Disorder of endocrine system pt. added direct ly (02/15) [email or web address] Not available 02/15/2025 11:14:50 Father Malignant neoplastic disease [email or web address] Not available 2024 14:55:53 Father Heart disease [email or web address] Not available 01/30 10:52:12 Maternal Grandfather Myocardial infarction pt. added direct ly (02/15) [email or web address] Not available 02/15/2025 11:15:05 Maternal Grandfather Obesity pt. added direct ly (02/15) [email or web address] Not available 02/15/2025 11:15:45 Maternal Grandmother Hypertensive disorder pt. added direct ly (02/15) [email or web address] Not available 02/15/2025 11:15:17 Maternal Grandmother Osteoporosis pt. added direct ly (02/15) [email or web address] Not available 02/15/2025 11:16:04 Medical History Condition Response None Obesity Y Vision or Eye Problems Y Arthritis Y Ear or Hearing Problems Y Congestive Heart Failure (CHF) Y Back Problems Y Kidney or Bladder Problems Y GI Problems Y Osteoporosis/Osteopenia Y Anemia Y Substance Abuse Y Reflux/GERD Y High Cholesterol Y Heart Attack (MD) Y Heart Disease Y Spine Problems Y Psychiatric/Mental Health Condition Y Rheumatoid Arthritis Y Headaches Y Hypertension Y Neurological Problems Y Past Encounters Encounter ID Performer Location Encounter Start Date Encounter Closed Date Diagnosis/Indication Diagnosis SNOMED-CT Code Diagnosis ICD10 Code Diagnosis IMO Codes Diagnosis Note [id number] VIPIN DIALLO MD [facility] [address] [place] [address] 04/03/2025 10:53:41 04/03/2025 11:29:23 Retention of urine 206010660 R33.9 [id number] VIPIN DIALLO MD [facility] [address] [facility] [address] [place] [address] 04/06/2025 10:54:36 04/06/2025 13:02:50 Retention of urine 413661222 R33.9 [id number] VIPIN DIALLO MD [facility] [address] [facility] [address] [place] [address] 04/10/2025 14:55:20 04/10/2025 16:43:41 Retention of urine 854184414 R33.9 37750 Health Concerns Section Related Observation LastModified by Organization Detai ls LastModified Time None Recorded Concern Status LastModified by Organization Details LastModified Time None Recorded Payers Encounter Date Sequence Insurance Name Policy Number Policy Cordero Covered Member ID Cordero Member ID Guarantor Name 04/10/2025 1 [place]MEDICARE REPLACEMENT HMO) [id number] Abe Maharaj [id number] Abe Maharaj Notes Date Note Type Note Provider Name and Address Organization Details Recorded Time 04/10/2025 text/html 04/10/25 Patient here for TOW MOTOR OPERATOR testing. Voiding trial after TOW MOTOR OPERATOR testing successful, patient was able to void 100ml. VIPIN DIALLO MD [address], [place], [address], [facility] 04/17/2025 12:42:31
--- OUTSIDE RECORDS SUMMARY | 2025-05-20 11:53 | XMS_ITS | Encounter Summary ---
[facility] Address [address] [place] [address] Care Team Providers Care Rubber Goods Assembler Name Role Phone Jennifer Newton APRN Primary Care Provid er Encounter Details Date Type Department Care Team (Late st Contact Info) Description 05/14/2025 Telephone [facility] [address] [facility] [address] [place] [address] Valeria Machuca APRN [address] [facility] 100 [place] [address] Social History Tobacco Use Types Packs/Day Years Used Date Smoking Tobacco: Every Day Cigarettes 1 53.8 Started: 1974 Passive Smoke Exposure: Past Smokeless Tobacco: Current Alcohol Use Standard Drinks/Week [...] encounter Miscellaneous Notes * Telephone Encounter - Stella Gonzalez MA - 05/14/2025 3:48 PM EDT I faxed recent lab results request to [facility] Med Rec at [phone] per their VM instructions. -LARRY Chatman * Telephone Encounter - Valeria Machuca APRN - 05/14/2025 3:24 PM EDT Can we request labs from [facility]? documented in this encounter Plan of Treatment Upcoming Encounters Date Type Department Care Team (Late st Contact Info) Description 09/10/2025 3:00 PM EST Office Visit [facility] [address] [phone] Valeria Machuca APRN [address] [address] 01/07/2026 3:45 PM EDT Office Visit [facility] [address] [phone] Damien Cosme DO [address] [address] documented as of this encounter Goals Goal Patient Goal Type Associated Problems Recent Progress Patient-Stated? Author Specialty Pharmacy General Goal General No Alvin Maier, JonatanD Note: Reduce number of flares and pain score. documented as of this encounter Visit Diagnoses Not on filedocumented in this encounter Care Teams Rubber Goods Assembler Relationship Specialty Start Date End Date Jennifer Newton APRN [address] [facility] [address] [place] [address] PCP - General Family Medicine 03/20/24 documented as of this encounter
--- OUTSIDE RECORDS SUMMARY | 2025-05-20 11:53 | XMS_ITS | Encounter Summary ---
[facility] [address] [place] [address] Care Team Providers Care Buckle Stringer Name Role Phone Jennifer Newton APRN Primary Care Provid er Encounter Details Date Type Department Care Team (Latest Contact Info) Description 05/14/2025 Travel Social History Tobacco Use Types Packs/Day Years [...] Description 09/10/2025 3:00 PM EST Office Visit [facility] [address] [address] Valeria Machuca APRN 330 [facility] 100 [place] [address] 01/07/2026 3:45 PM EDT Office Visit [facility] 330 [facility] 100 [place] [address] Damien Cosme DO 330 [facility] 100 [place], [place] [id number] documented as of this encounter Goals Goal Patient Goal Type Associated Problems Recent Progress Patient-Stated? Author Specialty Pharmacy General Goal General No Alvin Maier, PharmD Note: Reduce number of flares and pain score. documented as of this encounter Visit Diagnoses Not on filedocumented in this encounter Care Teams Buckle Stringer Relationship Specialty Start Date End Date Jennifer Newton APRN [address] [facility] [address] [place] [address] PCP - General Family Medicine 03/20/24 documented as of this encounter
--- OUTSIDE RECORDS SUMMARY | 2025-05-20 11:53 | XMS_ITS | Continuity of Care Document ---
Author Organization [facility] Address [address] [facility] [address] [place] [address] Care Team Providers Care Tool Crib Lead Name Role Phone DEAN SAMUEL Primary Care [...] Urine: 148 ml Not Available [facility] [address] [facility] [address], [place], [address], 02/16/2025 10:20:55 03/27/2003/27/2025 BASIC METAB OLIC PANEL sodium 140 mmol/ L 136-14 5 Not Available [facility] ([facility]) [address] [facility], [place], [address], 03/27/2025 10:02:51 03/27/2003/27/2025 BASIC METAB OLIC PANEL potassium 4.2 mmol/ L 3.6-5. 0 Not Available [facility] ([facility]) [address] [facility], [place], [address], 03/27/2025 10:02:51 03/27/20 25 03/27/2025 BASIC METAB OLIC PANEL chloride 104 mmol/ L 98-107 Not Available [facility] ([facility]) [address] , [place], [address], 03/27/2025 10:02:51 03/27/20 25 03/27/2025 BASIC METAB OLIC PANEL carbon dioxide 24.7 mmol/ L 21.0-3 2.0 Not Available [facility] ([facility]) [address] , [place], [address], 03/27/2025 10:02:51 03/27/20 25 03/27/2025 BASIC METAB OLIC PANEL anion gap 15.5 Not Available [facility] ([facility]) [address] , [place], [address], 03/27/2025 10:02:51 03/27/20 25 03/27/2025 BASIC METAB OLIC PANEL glucose 112 mg/dL 70-120 Not Available [facility] ([facility]) [address] [place], [address], 03/27/2025 10:02:51 03/27/20 25 03/27/2025 BASIC METAB OLIC PANEL BUN 19 mg/dL 7-18 high Not Available [facility] ([facility]) [address] [place], [address], 03/27/2025 10:02:51 03/27/20 25 03/27/2025 BASIC METAB OLIC PANEL creatinine 1.1 mg/dL 0.6-1. 3 Not Available [facility] ([facility]) [address] [place], [address], 03/27/2025 10:02:51 03/27/20 25 03/27/2025 BASIC METAB [...] marcum ing kiney funct ion. Not Available [facility] ([facility]) [address], [place], [address], 03/27/2025 10:02:51 03/27/20 25 03/27/2025 BASIC METAB OLIC PANEL osmolality (calculated) 294 mOsm/ kg 275-30 1 OSMOL ALITY IS A CALCU LATIO N UTILI ZING THE SERUM /PLAS MA SODIU M, GLUCO SE AND UREA NITRO GEN (BUN) LEVEL S. FOR THE MOST ACCUR ATE RESUL T A MEASU RED SERUM OSMOL ALITY IS SUGMELISSA WELCH. Not Available [facility] ([facility]) [address], [place], [address], 03/27/2025 10:02:51 03/27/2003/27/2025 BASIC METAB OLIC PANEL calcium 8.7 mg/dL 8.5-10 .5 Not Available [facility] ([facility]) [address], [place], [address], 03/27/2025 10:02:51 04/03/2004/03/2025 PATHO LOGY SPECI MEN pathology specimen SEE REPORT Not Available [facility] ([facility]) [address], [place], [address], 04/03/2025 09:00:57 Result Notes None recorded. Problems Name Problem SNOMED Code Status Onset Date Resolution Date Notes Provider Name and Address Organization Details Recorded Time Poor stream of urine 693081687 Active 2024 VIPIN DIALLO MD [address], [place], [address] , [facility] & [place] 5 10:43:53 Increased frequency of urination 697775715 Active [address], [place], [address] , [place] - [facility] - [place] & [place] 5 10:43:56 Urge incontinence of urine 05851905 Active [address], [place], [address] , [place] - [facility] - [place] & [place] 5 10:44:01 Nocturia 992419422 Active [address], [place], [address] , [place] - [facility] - [place] & [place] 10:44:04 Retention of urine 808600238 Active [address], [place], [address] , [place] - [facility] - [place] & [place] 12:42:28 Problem Notes None recorded. Procedures Surgical History Date Name Laterality Status Provider Name and Address Organization Details Recorded Time 04/10/20 25 WEATHERIZATION AND HOUSING INSPECTOR Test completed Sharda DIAS - [facility] - [place] & [place] 04/10/2025 16:32:49 04/06/20 25 Cavanaugh Catheter Insertion completed Sharda DIAS - [facility] - [place] & [place] 04/06/2025 12:56:18 04/03/20 25 Cavanaugh Catheter Insertion completed Sharda Marquis [place] - [facility] - [place] & [place] 04/03/2025 11:32:51 03/01/20 25 Cystoscopy-Male completed MD [address], [place], [address], [place] - [facility] - [place] & [place] 03/01/2025 13:41:28 03/01/20 25 TRUS completed MD [address], [place], [address], [place] - [facility] - [place] & [place] 03/01/2025 13:40:58 08/02/19 24 Other completed Andralucy Portert LARISSA - [facility] - [place] & [place] 04/06/2025 11:11:20 08/02/19 24 Cardiovascular Surgery completed Andralucy AyonPoli LARISSA - [facility] - [place] & [place] 04/06/2025 11:11:20 08/02/19 22 ENT Surgery completed Andra Poli LARISSA - [facility] - [place] & [place] 04/06/2025 11:11:20 08/02/19 17 Cardiovascular Surgery completed Andralucy Portert LARISSA - [facility] - [place] & [place] 04/06/2025 11:11:20 08/02/19 11 Head or Neck Surgery completed Andra Poli LARISSA - [facility] - [place] & [place] 04/06/2025 11:11:20 08/02/19 07 Cardiovascular Surgery completed Andra Gridley LARISSA - [facility] - [place] & [place] 04/06/2025 11:11:20 08/02/18 74 Abdominal Surgery completed Andra DIAS - [facility] - [place] & [place] 04/06/2025 11:11:20 insertion of carotid artery stent completed Chelsey DIAS - GEOFF [facility] & [place] 02/16/2025 11:17:35 hernia repair completed Chelsey TELLEZ [facility] & [place] 02/16/2025 11:17:46 Imaging Results None recorded. Procedure Notes None recorded. Medical Equipment None Reported. Allergies Allergen ID Allergen Name Allergen Category Reaction Reaction Severity Criticality Documentation Date Start Date Code Code System Note Provider Name and Address Organization Details Recorded Time 239243 nickel environme nt other severe Not available 02/16/2025 15598 29 RxNorm LARISSA Adams - [facility] - [place] & [place] 10:48:35 709204 Non-stero idal anti-infl ammatory agent (substanc e) medicatio n Not available Not available Not available 02/16/2025 06377 5008 SNOMED LARISSA Adams - [facility] & [place] 10:49:39 Medications Name Sig Start Date Stop [...] d Address Organization Details Last Updated DateTime 04/03/2025 177.8 cm Sharda TELLEZ [facility] & [place] 04/03/2025 11:30:15 Date Recorded Body height Provider Name an d Address Organization Details Last Updated DateTime 04/10/2025 177.8 cm Sharda Pineda [facility] & [place] 04/10/2025 15:01:19 Social History Question Answer Notes LastModified by Organizat ion Details LastModified Time Tobacco Smoking Status Current Every Day Smoker [facility] & [place] 02/16/2025 10:53:51 Do You Have An Advance [...] is your level of alcohol consumption? Occasional [email or web address] Information not available 02/16/2025 Do you or have you ever used smokeless tobacco? Never used smokeless tobacco Information not available 04/06/2025 What is your exercise level? Occasional Information not available 04/06/2025 Mental Status Question Answer Note LastModified by Organization D etails LastModified Time Do you feel stressed (tense, restless, nervous, or anxious, or unable to sleep at night)? [id number] Information not available 04/06/2025 Family History Relationship [...] Not available 2024 14:55:53 Father Heart disease [email or web address] Not available 01/30 10:52:12 Maternal Grandfather Myocardial [...] Abuse Y Reflux/GERD Y High Cholesterol Y Spine Problems Y Psychiatric/Mental Health Condition Y Heart Attack ([place]) Y Heart Disease Y Rheumatoid Arthritis Y Headaches Y Hypertension Y Neurological Problems Y Past Encounters Encounter ID Performer Location Encounter Start Date Encounter Closed Date Diagnosis/Indication Diagnosis SNOMED-CT Code Diagnosis ICD10 Code Diagnosis IMO Codes Diagnosis Note [id number] VIPIN DIALLO MD [facility]1 00 [address] [place] [address] 04/03/2025 10:53:41 04/03/2025 11:29:23 Retention of urine 839440937 R33.9 31596 Health Concerns Section Related Observation LastModified by Organization Detai ls LastModified Time None Recorded Concern Status LastModified by Organization Details LastModified Time None Recorded Payers Encounter Date Sequence Insurance Name Policy Number Policy Cordero Covered Member ID Cordero Member ID Guarantor Name 04/03/2025 1 [place]MEDICARE REPLACEMENT HMO) [id number] Abe Maharaj [id number] Abe Maharaj Notes Date Note Type Note Provider Name and Address Organization Details Recorded Time 04/03/2025 text/html 04/03/25 Patient here for voiding trial. Filled catheter with 150ml of steril water, patient was unable to urinate on his own. Replaced catheter with 16FR Cavanaugh catheter. VIPIN DIALLO MD [address], [place], [address], [place] - [facility] & [place] 04/17/2025 12:47:49 04/06/2025 text/html 04/06/25 Patient here for voiding trial. Filled catheter with 200ml, patient was unable to urinate on his own. VIPIN DIALLO MD [address], [place], [address], [place] - [facility] & [place] 04/17/2025 12:45:25 04/10/2025 text/html 04/10/25 Patient here for WEATHERIZATION AND HOUSING INSPECTOR testing. Voiding trial after WEATHERIZATION AND HOUSING INSPECTOR testing successful, patient was able to void 100ml. VIPIN DIALLO MD [address], [place], [address], [facility] - [place] & [place] 04/17/2025 12:42:31
--- OUTSIDE RECORDS SUMMARY | 2025-05-20 11:54 | XMS_ITS | Encounter Summary ---
[facility] [address] [place] [address] Care Team Providers Care Grinding And Polishing Laborer Name Role Phone Jennifer Newton APRN Primary Care Provid er Reason for Visit * Reason Comments Med Refill Encounter Details Date Type Department Care Team (Late st Contact Info) Description 03/30/2025 Refill [facility] [address] [facility] 100 [place] [address] Damien Cosme, [address] [id number] High risk medication use Social History Tobacco [...] Description 09/10/2025 3:00 PM EST Office Visit [facility] [address] [place] [phone] Valeria Machuca APRN [address] [facility] [address] [address] 01/07/2026 3:45 PM EDT Office Visit [facility] [address] [place] [address] Damien Cosme DO [address] [address] documented as of this encounter Goals Goal Patient Goal Type Associated Problems Recent Progress Patient-Stated? Author Specialty Pharmacy General Goal General No Alvin Maier, JonatanD Note: Reduce number of flares and pain score. documented as of this encounter Visit Diagnoses Diagnosis High risk medication use documented in this encounter Care Teams Grinding And Polishing Laborer Relationship Specialty Start Date End Date Jennifer Newton APRN [address] [facility] [address] [place] [address] PCP - General Family Medicine 03/20/24 documented as of this encounter
--- OUTSIDE RECORDS SUMMARY | 2025-05-20 11:54 | XMS_ITS | Encounter Summary ---
Author Organization Healthcare Address [address] [place] [address] Care Team Providers Care Ent Consultant Name Role Phone Savage Reardon MD Primary Care Provider [phone] Clayton James MD Unavailable [phone] Reason for Visit * Reason Comments Med Refill Encounter Details Date Type Department Care Team (Late st Contact Info) Description 11/19/2024 [facility]ill [place] [facility] [address] [place] [address] Clayton James MD [address] [place] [address] Degeneration of intervertebral disc of [...] documented as of this encounter Care Teams Ent Consultant Relationship Specialty Start Date End Date Savage Reardon MD [address] [place] [address] PCP - General 12/13/20 Clayton James MD [address] [place] [address] Surgeon Neurosurgery 09/22/24 documented as of this encounter
--- OUTSIDE RECORDS SUMMARY | 2025-05-20 11:54 | XMS_ITS | Continuity of Care Document ---
Author Organization [facility]100 Address [address] [facility] [address] [place] [address] Care Team Providers Care Ultrasonic Seaming Machine Operator Name Role Phone DEAN SAMUEL Primary Care [...] Urine: 148 ml Not Available [facility] [address] [facility] [address], [place], [address], 02/16/2025 10:20:55 03/27/2003/27/2025 BASIC METAB OLIC PANEL sodium 140 mmol/ L 136-14 5 Not Available [facility] ([facility]) [address] [facility], [place], [address], 03/27/2025 10:02:51 03/27/2003/27/2025 BASIC METAB OLIC PANEL potassium 4.2 mmol/ L 3.6-5. 0 Not Available [facility] ([facility]) [address] [facility], [place], [address], 03/27/2025 10:02:51 03/27/20 25 03/27/2025 BASIC METAB OLIC PANEL chloride 104 mmol/ L 98-107 Not Available [facility] ([facility]) [address] , [place], [address], 03/27/2025 10:02:51 03/27/20 25 03/27/2025 BASIC METAB OLIC PANEL carbon dioxide 24.7 mmol/ L 21.0-3 2.0 Not Available [facility] ([facility]) [address] , [place], [address], 03/27/2025 10:02:51 03/27/20 25 03/27/2025 BASIC METAB OLIC PANEL anion gap 15.5 Not Available [facility] ([facility]) [address] , [place], [address], 03/27/2025 10:02:51 03/27/20 25 03/27/2025 BASIC METAB OLIC PANEL glucose 112 mg/dL 70-120 Not Available [facility] ([facility]) [address] [place], [address], 03/27/2025 10:02:51 03/27/20 25 03/27/2025 BASIC METAB OLIC PANEL BUN 19 mg/dL 7-18 high Not Available [facility] ([facility]) [address] [place], [address], 03/27/2025 10:02:51 03/27/20 25 03/27/2025 BASIC METAB OLIC PANEL creatinine 1.1 mg/dL 0.6-1. 3 Not Available [facility] ([facility]) [address] [place], [address], 03/27/2025 10:02:51 03/27/20 25 03/27/2025 BASIC METAB [...] marcum ing kiney funct ion. Not Available [facility] ([facility]) [address], [place], [address], 03/27/2025 10:02:51 03/27/20 25 03/27/2025 BASIC METAB OLIC PANEL osmolality (calculated) 294 mOsm/ kg 275-30 1 OSMOL ALITY IS A CALCU LATIO N UTILI ZING THE SERUM /PLAS MA SODIU M, GLUCO SE AND UREA NITRO GEN (BUN) LEVEL S. FOR THE MOST ACCUR ATE RESUL T A MEASU RED SERUM OSMOL ALITY IS SUGMELISSA WELCH. Not Available [facility] ([facility]) [address], [place], [address], 03/27/2025 10:02:51 03/27/2003/27/2025 BASIC METAB OLIC PANEL calcium 8.7 mg/dL 8.5-10 .5 Not Available [facility] ([facility]) [address], [place], [address], 03/27/2025 10:02:51 04/03/2004/03/2025 PATHO LOGY SPECI MEN pathology specimen SEE REPORT Not Available [facility] ([facility]) [address], [place], [address], 04/03/2025 09:00:57 Result Notes None recorded. Problems Name Problem SNOMED Code Status Onset Date Resolution Date Notes Provider Name and Address Organization Details Recorded Time Poor stream of urine 591977253 Active 2024 VIPIN DIALLO MD [address], [place], [address] , [facility] & [place] 5 10:43:53 Increased frequency of urination 567004074 Active [address], [place], [address] , [place] - [facility] - [place] & [place] 5 10:43:56 Urge incontinence of urine 41260970 Active [address], [place], [address] , [place] - [facility] - [place] & [place] 5 10:44:01 Nocturia 091994598 Active [address], [place], [address] , [place] - [facility] - [place] & [place] 10:44:04 Retention of urine 539052069 Active [address], [place], [address] , [place] [facility] - [place] & [place] 12:42:28 Problem Notes None recorded. Procedures Surgical History Date Name Laterality Status Provider Name and Address Organization Details Recorded Time 04/10/20 25 STOCKROOM INVENTORY CLERK Test completed Sharda DIAS - [facility] - [place] & [place] 04/10/2025 16:32:49 04/06/20 25 Cavanaugh Catheter Insertion completed Sharda DIAS - [facility] - [place] & [place] 04/06/2025 12:56:18 04/03/20 25 Cavanaugh Catheter Insertion completed Sharda Marquis [place] - [facility] - [place] & [place] 04/03/2025 11:32:51 03/01/20 25 Cystoscopy-Male completed MD [address], [place], [address], [place] - [facility] - [place] & [place] 03/01/2025 13:41:28 03/01/20 25 TRUS completed MD [address], [place], [address], [place] - [facility] - [place] & [place] 03/01/2025 13:40:58 08/02/19 24 Other completed Andralucy Portert LARISSA - [facility] - [place] & [place] 04/06/2025 11:11:20 08/02/19 24 Cardiovascular Surgery completed Andralucy AyonPoli LARISSA - [facility] - [place] & [place] 04/06/2025 11:11:20 08/02/19 22 ENT Surgery completed Andra Poli LARISSA - [facility] - [place] & [place] 04/06/2025 11:11:20 08/02/19 17 Cardiovascular Surgery completed Andralucy Portert LARISSA - [facility] - [place] & [place] 04/06/2025 11:11:20 08/02/19 11 Head or Neck Surgery completed Andra Poli LARISSA - [facility] - [place] & [place] 04/06/2025 11:11:20 08/02/19 07 Cardiovascular Surgery completed Andra [place] LARISSA - [facility] - [place] & [place] 04/06/2025 11:11:20 08/02/18 74 Abdominal Surgery completed Andra DIAS - [facility] - [place] & [place] 04/06/2025 11:11:20 insertion of carotid artery stent completed Chelsey DIAS - GEOFF [facility] & [place] 02/16/2025 11:17:35 hernia repair completed Chelsey TELLEZ [facility] & [place] 02/16/2025 11:17:46 Imaging Results None recorded. Procedure Notes None recorded. Medical Equipment None Reported. Allergies Allergen ID Allergen Name Allergen Category Reaction Reaction Severity Criticality Documentation Date Start Date Code Code System Note Provider Name and Address Organization Details Recorded Time 630914 nickel environme nt other severe Not available 02/16/2025 04272 29 RxNorm LARISSA Adams - [facility] - [place] & [place] 10:48:35 246337 Non-stero idal anti-infl ammatory agent (substanc e) medicatio n Not available Not available Not available 02/16/2025 18010 5008 SNOMED LARISSA Adams - [facility] & [place] 10:49:39 Medications Name Sig Start Date Stop [...] Updated DateTime 04/10/2025 177.8 cm Sharda Marquis [facility] & [place] 04/10/2025 15:01:19 Social History Question Answer Notes LastModified by [email or web address] Details LastModified Time Tobacco Smoking Status Current Every Day Smoker Chelsey guy, [facility] & [place] 02/16/2025 10:53:51 Do You Have An Advance [...] is your level of alcohol consumption? Occasional [email or web address] Information not available 02/16/2025 Do you or have you ever used smokeless tobacco? Never used smokeless tobacco Information not available 04/06/2025 What is your exercise level? Occasional Information not available 04/06/2025 Mental Status Question Answer Note LastModified by Organization D etails LastModified Time Do you feel stressed (tense, restless, nervous, or anxious, or unable to sleep at night)? [id number] Information not available 04/06/2025 Family History Relationship [...] Not available 2024 14:55:53 Father Heart disease [email or web address] Not available 01/30 10:52:12 Maternal Grandfather Myocardial [...] Reflux/GERD Y High Cholesterol Y Heart Attack ([place]) Y Heart Disease Y Spine Problems Y Psychiatric/Mental Health Condition Y Rheumatoid Arthritis Y Headaches Y Hypertension Y Neurological Problems Y Past Encounters Encounter ID Performer Location Encounter Start Date Encounter Closed Date Diagnosis/Indication Diagnosis SNOMED-CT Code Diagnosis ICD10 Code Diagnosis IMO Codes Diagnosis Note [id number] VIPIN DIALLO MD [facility]rology-1 [address] [place] [address] 04/03/2025 10:53:41 04/03/2025 11:29:23 Retention of urine [id number] R33.9 97613 [id number] VIPIN DIALLO MD [facility]-1 [address] [place] [address] 04/06/2025 10:54:36 04/06/2025 13:02:50 Retention of urine 335965537 R33.9 16658 Health Concerns Section Related Observation LastModified by Organization Detai ls LastModified Time None Recorded Concern Status LastModified by Organization Details LastModified Time None Recorded Payers Encounter Date Sequence Insurance Name Policy Number Policy Cordero Covered Member ID Cordero Member ID Guarantor Name 04/06/2025 1 [place] (MEDICARE REPLACEMENT HMO) [id number] Abe Maharaj [id number] Abe Maharaj Notes Date Note Type Note Provider Name and Address Organization Details Recorded Time 04/06/2025 text/html 04/06/25 Patient here for voiding trial. Filled catheter with 200ml, patient was unable to urinate on his own. MD [address], [place], [address], [place] - [facility] & [place] 04/17/2025 12:45:25 04/10/2025 text/html 04/10/25 Patient here for STOCKROOM INVENTORY CLERK testing. Voiding trial after STOCKROOM INVENTORY CLERK testing successful, patient was able to void 100ml. MD [address], [place], [address], [place] - [facility] & [place] 04/17/2025 12:42:31
--- OUTSIDE RECORDS SUMMARY | 2025-05-20 11:54 | XMS_ITS | Data Portability ---
Author Organization [place] - [facility] & [facility] ADMIN Address [address] [place] [address] Care Team Providers Care Grade Foreman Name Role Phone DEAN SAMUEL Primary Care Provider Assessment Encounter Date Assessment Date Assessment LastModified by Organization Details LastModified Time 03/01/2025 03/01/2025 ASSESSMENT: Abe Maharaj is a 64-year-old male with urinary symptoms refractory to maximal medical therapy, including tamsulosin and dutasteride. PLAN: 1. Discussed the option of plasma button electro vaporization surgery to address the narrow urinary channel and improve symptoms. Explained the procedure, including the use of a scope to vaporize tissue and the benefits of minimal bleeding. 2. Reviewed potential risks of the procedure, including bleeding, infection, injury to structures, urinary leakage, and anesthesia-relat ed risks. 3. Discussed postoperative expectations, including the use of a catheter for 2-3 days, possible overnight observation, and the likelihood of improved urinary stream and reduced urgency/frequenc y. 4. Explained that 80% of patients experience symptom relief, while 20% may require additional treatment for bladder irritability. 5. Provided alternative treatment options, including UroLift, green light laser, and Rezum steam treatment, noting their limitations compared to plasma button electro vaporization. 6. Discussed the need for cardiology clearance from Dr. Sky due to the patient's use of blood thinners. 7. Provided reassurance regarding the patient's PSA level, which is 0.7 and within normal limits for his age. Please note this report was created using voice recognition/text compilation software documentation services during the encounter with the patient. [email or web address] Not available 03/01/2025 13:55:35 Plan of Treatment Reminders Order Date Submit Date Provider Last Modified By Organization Details Last Modified Time Details Appointments None recorded. Lab urinalysis, dipstick 2024 025 [email or web address] [place] [address], [address], [place], [address], 13:55:44 Referral None recorded. Procedures None recorded. Surgeries transurethr al resection of prostate (SURG) 2024 025 [email or web address] Not available 14:11:22 Imaging None recorded. Medication Orders None recorded. Patient TargetsNo targets recorded. Patient InstructionsNo instructions recorded. Reason for Referral None Reported. Results Created Date Observation Date Name Description Value Unit Range Abnormal Flag Note LastModifiedBy Organization Detail LastModifiedTime 02/17/2002/16/2025 PROST ATE SPECI FIC AG (PSA) prostate specific Ag (PSA) <0.13 NG/mL 0-4.0 Not Available [facility] ([facility]) [address] [facility], [place], [address], 02/16/2025 12:13:38 03/01/2003/01/2025 urina lysis , dipst ick Leukocytes (reference range) negati ve Not Available [place] [address] [address] [facility] [address], [place], [address], 03/01/2025 13:42:15 03/01/2003/01/2025 urina lysis , dipst ick Nitrite (reference range:) negati ve Not Available [place] [address] [address] [facility] [address], [place], [address], 03/01/2025 13:42:15 03/01/20 25 03/01/2025 urina lysis , dipst ick Urobilinogen (reference range) 0.2 Not Available [place] [address] [address] [facility] [address], [place], [address], 03/01/2025 13:42:15 03/01/20 25 03/01/2025 urina lysis , dipst ick Protein (reference range) negati ve Not Available [place] [address] [address] [facility] [address], [place], [address], 03/01/2025 13:42:15 03/01/20 25 03/01/2025 urina lysis , dipst ick pH (reference range 5-8.5) 5.0 Not Available [facility] [place] [address] [address], [place], [address], 03/01/2025 13:42:15 03/01/20 25 03/01/2025 urina lysis , dipst ick Blood (reference range:) negati ve Not Available [place] [address] [address] [facility] [address], [place], [address], 03/01/2025 13:42:15 03/01/20 25 03/01/2025 urina lysis , dipst ick Specific [place] (reference range) 1.000 Not Available [facility] [place] [address] [address] [facility] [address], [place], [address], 03/01/2025 13:42:15 03/01/20 25 03/01/2025 urina lysis , dipst ick Ketone (reference range) negati ve Not Available [place] [address] [address] [facility] [address], [place], [address], 03/01/2025 13:42:15 03/01/20 25 03/01/2025 urina lysis , dipst ick Bilirubin (reference range) negati ve Not Available [place] [address] [address] [facility] [address], [place], [address], 03/01/2025 13:42:15 03/01/20 25 03/01/2025 urina lysis , dipst ick Glucose (reference range) negati ve Not Available [facility] [address], [place], [address], 03/01/2025 13:42:15 03/01/20 25 03/01/2025 urina lysis , dipst ick Color (reference range: yellow-brown ) Yellow Not Available [facility] [address] [facility] [address], [place], [address], 03/01/2025 13:42:15 03/14/20 25 03/14/2025 bladd er scan (PROC ) Calculated Residual Urine: 148 ml Not Available [facility] [address] [facility] [address], [place], [address], 02/16/2025 10:20:55 03/27/20 25 03/27/2025 BASIC METAB OLIC PANEL sodium 140 mmol/ L 136-14 5 Not Available [facility] ([facility]) [address] [facility], [place], [address], 03/27/2025 10:02:51 03/27/20 25 03/27/2025 BASIC METAB OLIC PANEL potassium 4.2 mmol/ L 3.6-5. 0 Not Available [facility] ([facility]) [address] [facility], [place], [address], 03/27/2025 10:02:51 03/27/20 25 03/27/2025 BASIC METAB OLIC PANEL chloride 104 mmol/ L 98-107 Not Available [facility] ([facility]) [address] [facility], [place], [address], 03/27/2025 10:02:51 03/27/20 25 03/27/2025 BASIC METAB OLIC PANEL carbon dioxide 24.7 mmol/ L 21.0-3 2.0 Not Available [facility] ([facility]) [address] [place], [address], 03/27/2025 10:02:51 03/27/20 25 03/27/2025 BASIC METAB OLIC PANEL anion gap 15.5 Not Available [facility] ([facility]) [address] [facility], [place], [address], 03/27/2025 10:02:51 03/27/20 25 03/27/2025 BASIC METAB OLIC PANEL glucose 112 mg/dL 70-120 Not Available [facility] ([facility]) [address] [facility], [place], [address], 03/27/2025 10:02:51 03/27/20 25 03/27/2025 BASIC METAB OLIC PANEL BUN 19 mg/dL 7-18 high Not Available [facility] ([facility]) [address] [facility], [place], [address], 03/27/2025 10:02:51 03/27/20 25 03/27/2025 BASIC METAB OLIC PANEL creatinine 1.1 mg/dL 0.6-1. 3 Not Available [facility] ([facility]) [address] [facility], [place], [address], 03/27/2025 10:02:51 03/27/20 25 03/27/2025 BASIC METAB [...] marcum ing kiney funct ion. Not Available [facility] ([facility]) [address], [place], [address], 03/27/2025 10:02:51 03/27/20 25 03/27/2025 BASIC METAB OLIC PANEL osmolality (calculated) 294 mOsm/ kg 275-30 1 OSMOL ALIEVE IS A CALCU LATIO N UTILI ZING THE SERUM /PLAS MA SODIU M, GLUCO SE AND UREA NITRO GEN (BUN) LEVEL S. FOR THE MOST ACCUR ATE RESUL T A MEASU RED SERUM OSMOL ALIEVE IS JUNIOR BEATTYD. Not Available [facility] ([facility]) [address] , [place], [address], 03/27/2025 10:02:51 03/27/2003/27/2025 BASIC METAB OLIC PANEL calcium 8.7 mg/dL 8.5-10 .5 Not Available [facility] ([facility]) [address] , [place], [address], 03/27/2025 10:02:51 04/03/2004/03/2025 PATHO LOGY SPECI MEN pathology specimen SEE REPORT Not Available [facility] ([facility]) [address] , [place], [address], 04/03/2025 09:00:57 Result Notes None recorded. Problems Name Problem SNOMED Code Status Onset Date Resolution Date Notes Provider Name and Address Organization Details Recorded Time Poor stream of urine 303859795 Active 2024 VIPIN DIALLO MD [address] [facility] [address] [facility] & [place] 5 10:43:53 Increased frequency of urination 149823117 Active 2024 VIPIN DIALLO MD [address] [facility] [address] , [place] - [facility] & [place] 5 10:43:56 Urge incontinence of urine 05384311 Active 2024 [facility] [address] [facility] [address] , [facility] - [facility] & [place] 5 10:44:01 Nocturia 001150845 Active 2024 VIPIN DIALLO MD [address] [facility] [address] , [place] - [facility] [place] & [place] 10:44:04 Retention of urine 182487595 Active [address], [place], [address] , [place] - [facility] [place] & [place] 12:42:28 Problem Notes None recorded. Procedures Surgical History Date Name Laterality Status Provider Name and Address Organization Details Recorded Time 04/10/20 25 U.S. REPRESENTATIVE Test completed Sharda Marquis [place] - [facility] [place] & [place] 04/10/2025 16:32:49 04/06/20 25 Cavanaugh Catheter Insertion completed Sharda DIAS - [facility] - [place] & [place] 04/06/2025 12:56:18 04/03/20 25 Cavanaugh Catheter Insertion completed Sharda DIAS - [facility] - [place] & [place] 04/03/2025 11:32:51 03/01/20 25 Cystoscopy-Male completed MD [address], [place], [address], [place] - [facility] [place] & [place] 03/01/2025 13:41:28 03/01/20 25 TRUS completed MD [address], [place], [address], [place] - [facility] [place] & [place] 03/01/2025 13:40:58 08/02/19 24 Other completed Andra Ashton [place] - [facility] [place] & [place] 04/06/2025 11:11:20 08/02/19 24 Cardiovascular Surgery completed Andra Ashton [place] [facility] [place] 04/06/2025 11:11:20 08/02/19 22 ENT Surgery completed Andra Ashton [place] - [facility] [place] & [place] 04/06/2025 11:11:20 08/02/19 17 Cardiovascular Surgery completed Andra Ashton [place] [facility] [place] 04/06/2025 11:11:20 08/02/19 11 Head or Neck Surgery completed Andra Ashton [place] - [facility] & [place] 04/06/2025 11:11:20 08/02/19 07 Cardiovascular Surgery completed Andra Badillo [place] & [place] 04/06/2025 11:11:20 08/02/18 74 Abdominal Surgery completed Andra Badillo [place] & [place] 04/06/2025 11:11:20 insertion of carotid artery stent completed Chelsey TELLEZ [facility] & [place] 02/16/2025 11:17:35 hernia repair completed Chelsey TELLEZ [facility] & [place] 02/16/2025 11:17:46 Imaging Results None recorded. Procedure Notes None recorded. Medical Equipment None Reported. Allergies Allergen ID Allergen Name Allergen Category Reaction Reaction Severity Criticality Documentation Date Start Date Code Code System Note Provider Name and Address Organization Details Recorded Time 343574 nickel environme nt other severe Not available 02/16/2025 73448 29 RxNorm LARISSA Adams [facility] & [place] 10:48:35 841123 Non-stero idal anti-infl ammatory agent (substanc e) medicatio n Not available Not available Not available 02/16/2025 87795 5008 SNOMED LARISSA Adams [facility] & [place] 10:49:39 Medications Name Sig Start Date Stop [...] Not Available Not Available No t Available Chan Ellipta 100 mcg-62.5 mcg-25 mcg powder for inhalation INHALE 1 PUFF BY MOUTH EVERY DAY active Not Available Not Available No t Available Vitals Date Recorded Body height Body mass index (BMI) Body weight Oxygen saturation Oxygen saturation in Arterial blood by Pulse oximetry Heart rate Systolic And Diastolic Provider Name and Address Organization Details Last Updated DateTime 177.8 cm 41 kg/m2 881772. 42 g 96 % 96 % 64 /min 112/60 mm[Hg] Chelsey Hoffman LARISSA TELLEZ [facility] & [place] 13:41:43 Date Recorded Body height Provider Name an d Address Organization Details Last Updated DateTime 04/03/2025 177.8 cm Sharda Badillo [facility] & [place] 04/03/2025 11:30:15 Date Recorded Body height Provider Name an d Address Organization Details Last Updated DateTime 04/10/2025 177.8 cm Sharda Badillo [facility] & [place] 04/10/2025 15:01:19 Social History Question Answer Notes LastModified by Organizat ion Details LastModified Time Tobacco Smoking Status Current Every Day Smoker Chelsey Hoffman LARISSA guy [facility] & [place] 02/16/2025 10:53:51 Do You Have An Advance [...] is your level of alcohol consumption? Occasional [email or web address] Information not available 02/16/2025 Do you or have you ever used smokeless tobacco? Never used smokeless tobacco Information not available 04/06/2025 What is your exercise level? Occasional Information not available 04/06/2025 Mental Status Question Answer Note LastModified by Organization D etails LastModified Time Do you feel stressed (tense, restless, nervous, or anxious, or unable to sleep at night)? [id number] Information not available 04/06/2025 Family History Relationship [...] Not available 2024 14:55:53 Father Heart disease [email or web address] Not available 01/30 10:52:12 Maternal Grandfather Myocardial [...] Reflux/GERD Y High Cholesterol Y Heart Attack ([place]) Y Heart Disease Y Spine Problems Y Psychiatric/Mental Health Condition Y Rheumatoid Arthritis Y Headaches Y Hypertension Y Neurological Problems Y Past Encounters Encounter ID Performer Location Encounter Start Date Encounter Closed Date Diagnosis/Indication Diagnosis SNOMED-CT Code Diagnosis ICD10 Code Diagnosis IMO Codes Diagnosis Note [id number] VIPIN DIALLO MD [facility] [address] [facility] [address] [place] [address] 02/16/2025 10:04:16 02/16/2025 10:45:08 Poor stream of urine 035817213 R39.12 62853 Increased frequency of urination 376426907 R35.0 25647 Urge incon tinence of urine 44469190 N39.41 41852 Nocturia 317710900 R35.1 85927 [id number] VIPIN DIALLO MD [facility] 00 [address] [facility] [address] [place] [address] 03/01/2025 13:12:38 03/01/2025 14:10:18 Poor stream of urine 127810423 R39.12 33124 Urge incon tinence of urine 14747169 N39.41 75436 [id number] VIPIN DIALLO MD [facility] [address] [facility] [address] [place] [address] 04/03/2025 10:53:41 04/03/2025 11:29:23 Retention of urine 720370542 R33.9 05791 [id number] VIPIN DIALLO MD [facility]-1 00 [address] [facility] [address] [place] [address] 04/06/2025 10:54:36 04/06/2025 13:02:50 Retention of urine 387173142 R33.9 83670 [id number] VIPIN DIALLO MD [facility]-1 00 [address] [facility] 100 [place] [address] 04/10/2025 14:55:20 04/10/2025 16:43:41 Retention of urine 453995898 R33.9 59040 Health Concerns Section Related Observation LastModified by Organization Detai ls LastModified Time None Recorded Concern Status LastModified by Organization Details LastModified Time None Recorded Advance Directives Directive N: Payers Insurance Date Sequence Insurance Name Policy Number Policy Cordero Covered Member ID Cordero Member ID Guarantor Name 04/18/2025 1 [place]SE OF [place] - [employer] (MEDICARE REPLACEMENT HMO) [id number] Abe Maharaj [id number] Abe Maharaj Notes Date Note Type Note Provider Name and Address Organization Details Recorded Time 03/01/2025 text/html 03/01/25 Patient returns to my office for cystoscopy.Abe Maharaj is a 64-year-old male who presents for a procedure cystoscopy. He has been on maximal medical therapy for urinary symptoms but remains symptomatic. Previous treatments include medications such as tamsulosin and dutasteride. He reports wearing incontinence pads for men and requests a prescription for them. He has a history of high-pressure, high-flow urinary system with a flow rate of 13 mL/s. He expresses concerns about possible scar tissue or strictures in the urethra. He is under the care of Dr. Sky for blood thinners, which may need to be held for future procedures.-------- --------- 02/16/25Abe Maharaj is a 64-year-old male who presents for a new patient visit. He reports experiencing urinary frequency and urgency for approximately one year. Symptoms have progressively worsened, leading to episodes of incontinence where he is unable to make it to the bathroom in time. He uses two to three pads daily. He describes difficulty initiating urination, sometimes requiring effort to start, and notes that his urinary stream is inconsistent, varying between spraying and weak flow.He wakes up two to three times nightly to urinate and has experienced occasional nocturnal leakage, waking up wet on a few occasions, including recently. He denies blood in the urine or burning during urination. He recalls a bladder infection years ago that required treatment with ciprofloxacin, which resolved the infection.He has been taking tamsulosin and dutasteride for several years, which he states have helped with prostate swelling but have not improved his urinary symptoms. He discontinued oxybutynin as it did not provide any benefit. He is unsure of any family history of prostate issues or prostate cancer.Abe has undergone PSA blood tests in the past and is agreeable to obtaining an updated test. He has a history of heart disease and is under the care of a sledger, Dr. Sky. He is currently taking Plavix and multiple blood pressure medications, including furosemide. 02/19/25 UroCuff: Pcuffint 200.0cmH2O, Qmax 11.7ml/s (high pressure, high flow)02/16/25 PSA <0. Cr 1.0, GFR 91, Hgb 13.6, Hct 41.4 VIPIN DIALLO MD [address], [place], [address] [place] - [facility] & [place] 03/06/2025 07:47:49 04/03/2025 text/html 04/03/25 Patient here for voiding trial. Filled catheter with 150ml of steril water, patient was unable to urinate on his own. Replaced catheter with 16FR Cavanaugh catheter. VIPIN DIALLO MD [address], [place], [address] [place] - [facility] & [place] 04/17/2025 12:47:49 04/06/2025 text/html 04/06/25 Patient here for voiding trial. Filled catheter with 200ml, patient was unable to urinate on his own. VIPIN DIALLO MD [address], [place], [address] [place] - [facility] & [place] 04/17/2025 12:45:25 04/10/2025 text/html 04/10/25 Patient here for U.S. REPRESENTATIVE testing. Voiding trial after U.S. REPRESENTATIVE testing successful, patient was able to void 100ml. MD [address], [place], [address] [place] [facility] & [place] 04/17/2025 12:42:31
--- OUTSIDE RECORDS SUMMARY | 2025-05-20 11:54 | XMS_ITS | Encounter Summary ---
Author Organization Healthcare Address [address] [place] [address] Care Team Providers Care Golf Ball Trimmer Name Role Phone Savage Reardon MD Primary Care Provider [phone] Clayton James MD Unavailable [phone] Reason for Visit * Reason Comments Med Refill Encounter Details Date Type Department Care Team (Late st Contact Info) Description 12/12/2024 Refill [place] [facility] [address] [place] [address] Clayton James MD [address] [place] [address] Degeneration of intervertebral disc of [...] 12/12/2024 8:12 AM EDT Tk request #: [id number] reviewed and appropriate. Refill sent to the [...] documented as of this encounter Care Teams Golf Ball Trimmer Relationship Specialty Start Date End Date Savage Reardon MD [address] [place] [address] PCP - General 12/13/20 Clayton James MD [address] [place] [address] Surgeon Neurosurgery 09/22/24 documented as of this encounter
--- OUTSIDE RECORDS SUMMARY | 2025-05-20 11:54 | XMS_ITS | Encounter Summary ---
Author Organization Healthcare Address [address] [place] [address] Care Team Providers Care Soils Analyst Name Role Phone Savage Reardon MD Primary Care Provider [phone] Clayton James MD Unavailable [phone] Reason for Visit * Reason Comments Med Refill Encounter Details Date Type Department Care Team (Late st Contact Info) Description 02/09/2025 Refill [place] [facility] [address] [place] [address] Daniel Grajeda MD [address] [place] [address] Degeneration of intervertebral disc of [...] documented as of this encounter Care Teams Soils Analyst Relationship Specialty Start Date End Date Savage Reardon MD [address] [place] [address] PCP - General 12/13/20 Clayton James MD [address] [place] [address] Surgeon Neurosurgery 09/22/24 documented as of this encounter
--- OUTSIDE RECORDS SUMMARY | 2025-05-20 11:54 | XMS_ITS | Encounter Summary ---
[facility] Address [address] [place] [address] Care Team Providers Care Forklift Truck Operator Name Role Phone Jennifer Newton APRN Primary Care Provid er Encounter Details Date Type Department Care Team (Late st Contact Info) Description 01/15/2025 Results Follow-Up [facility] [address] [facility] [address] [place] [address] Valeria Mcahuca APRN [address] [facility] [address] [place] [address] Social History Tobacco Use Types [...] Description 09/10/2025 3:00 PM EST Office Visit [facility] [address] [place] [address] Valeria Machuca APRN [address] [facility] 100 [place], [place] [id number] 01/07/2026 3:45 PM EDT Office Visit [facility] [address] [place] [address] Damien Cosme DO [address] [id number] documented as of this encounter Goals Goal Patient Goal Type Associated Problems Recent Progress Patient-Stated? Author Specialty Pharmacy General Goal General No Alvin Maier, PharmD Note: Reduce number of flares and pain score. documented as of this encounter Visit Diagnoses Not on filedocumented in this encounter Care Teams Forklift Truck Operator Relationship Specialty Start Date End Date Jennifer Newton, [place] [address] [facility] [address] [place] [address] PCP - General Family Medicine 03/20/24 documented as of this encounter
--- OUTSIDE RECORDS SUMMARY | 2025-05-20 11:54 | XMS_ITS | Clinical Summary ---
Author Organization [facility] Address [address] [place] [address] Care Team Providers Care Item Processor Name Role Phone Savage Reardon MD Primary Care Provider [phone] Clayton James MD Unavailable [phone] Allergies Active Allergy Reactions Criticality Noted [...] Type Department Care Team Description 03/21/2025 Refill [place] [facility] [address] [place] [address] Clayton James MD Degeneration of intervertebral disc [...] 2008 UKY-Zoster Vaccines (1 of 2) 2008 [facility]-WRHME-31 Vaccine (1 - 20 24-25 season) 2025 [...] this topic Insurance [employer] MEDICARE Care Teams Item Processor Relationship Specialty Start Date End Date Savage Reardon MD [address] [place] [address] PCP - General 12/13/20 Clayton James MD [address] [place] [address] Surgeon Neurosurgery 09/22/24
--- OUTSIDE RECORDS SUMMARY | 2025-05-20 11:54 | XMS_ITS | Clinical Summary ---
Author Organization [facility] Address [address] [place] [address] Care Team Providers Care Heavy Truck Mechanic Name Role Phone Jennifer Newton APRN Primary [...] Days. 2 each 5 10/17/19 25 Active methocarbamol (ROBAXIN) 750 MG tablet Take 1 tablet by mouth 3 times a day. 12/05/19 25 Active potassium chloride (KLOR-CON M10) 10 [...] 5 03/12/20 25 Active methotrexate 2.5 MG tabletIndication s:High risk medication use Take 8 tablets by mouth 1 (One) Time Per Week. 40 tablet 3 03/30/20 25 Active lamoTRIgine (LaMICtal) 25 MG tablet Take 1 tablet by mouth 2 (Two) Times a Day. Active Cariprazine HCl (Vraylar) 3 MG capsule capsule Take by mouth Daily. Active betamethasone dipropionate (DIPROSONE) 0.05 % cream apply TO RASH ON LEFT elbow AREA TWICE DAILY FOR 3 WEEKS THEN take 1 WEEK break. REPEAT NEEDED. DO not USE ON face, groin, OR underarms Active budesonide-formo terol (SYMBICORT) 160-4.5 MCG/ACT inhaler Inhale 2 puffs 2 (Two) Times a Day. 04/30/20 Active ipratropium-albu terol (DUO-NEB) 0.5-2.5 mg/3 ml nebulizer INHALE THE CONTENTS OF 1 VIAL VIA NEBULIZER BY MOUTH EVERY 6 HOURS NEEDED FOR SHORTNESS OF BREATH OR wheezing Active triamcinolone (KENALOG) 0.1 % cream APPLY TOPICALLY TO THE AFFECTED AREA(S) TWICE DAILY Active Varenicline Tartrate, Starter, 0.5 MG X 11 & 1 MG X 42 tablet therapy pack take according to package instructions 03/27/20 Active varenicline (CHANTIX) 1 MG tablet Take 1 tablet by mouth Every 12 (Twelve) Hours. 05/01/20 25 Active gabapentin (NEURONTIN) 600 MG tablet TAKE ONE TABLET BY MOUTH THREE TIMES DAILY MAY CAUSE DROWSINESS Active mirtazapine (REMERON) 15 MG tablet Take 0.5-1 tablets by mouth Daily. Active Lumateperone Tosylate (Caplyta) 42 MG capsule Take 1 capsule by mouth Daily. 10/13/19 25 025 Discontinue d(Patient Reported Not Taking) nicotine polacrilex (NICORETTE) 2 MG gum Chew 1 each As Needed. 10/24/19 25 025 Discontinue d(Patient Reported Not Taking) Active Problems Problem Noted Date Diagnosed Date Stage I pressure ulcer of left buttock High risk medication use 04/19/2024 Assessment & Plan (05/14/2025 4:45 PM EDT): * MTX 20 mg PO once/week for RA * Started 07/15/22 1. CBC and CMP every 8-12 weeks to monitor for medication toxicity. 2. Take folate supplements daily. 3. No recent serious infections. 4. Refill today Stage I pressure ulcer of left buttock He got rid of his donut that he was sitting on at home and this has since improved. Assessment & Plan (01/12/2025 2:41 PM EDT): [...] Seropositive rheumatoid arthritis 04/12/2024 Assessment & Plan (05/14/2025 4:45 PM EDT): * Sibling with RA * 07/07/22: CCP normal, CRP 2.55 (<0.50), ESR 56 (<21), IgA RF normal, IgG RF 23.5 (<20.0), IgM RF 41.7 (<20.0), Uric acid 7.7, Glucose 106 , CMP ok otherwise, CBC was fine * 04/03/22: RAMONA negative, Thyroid peroxidase antibody normal, C3 and C4 normal, DS DNA normal, Ribosomal P normal, HOSPICE/HOME HEALTH AIDE normal, SCL 70 normal, Morrow normal, SSA [...] following up with dermatology for further investigation Assessment & Plan (01/12/2025 3:29 PM EDT): * Sibling with RA * 07/07/22: CCP normal, CRP 2.55 (<0.50), ESR 56 (<21), IgA RF normal, IgG RF 23.5 (<20.0), IgM RF 41.7 (<20.0), Uric acid 7.7, Glucose 106 , CMP ok otherwise, CBC was fine * 04/03/22: RAMONA negative, Thyroid peroxidase antibody normal, C3 and C4 normal, DS DNA normal, Ribosomal P normal, HOSPICE/HOME HEALTH AIDE normal, SCL 70 normal, Morrow normal, SSA [...] normal, DS DNA normal, Ribosomal P normal, HOSPICE/HOME HEALTH AIDE normal, SCL 70 normal, Morrow normal, SSA [...] normal, DS DNA normal, Ribosomal P normal, HOSPICE/HOME HEALTH AIDE normal, SCL 70 normal, Morrow normal, SSA [...] Encounters Date Type Department Care Team Description 05/14/2025 2:30 PM EDT Office Visit [facility] [address] [place] [phone] Valeria Machuca APRN Seropositive rheumatoid arthritis (Primary Dx); Immunodeficiency due to treatment with immunosuppressive medication; High risk medication use; Paranoid schizophrenia; Primary osteoarthritis involving multiple joints; Stage I pressure ulcer of left buttock 05/14/2025 Telephone [facility] [address] [place] [phone] Valeria Machuca APRN 05/14/2025 Travel 03/30/2025 Refill [facility] [address] [place] [phone] Damien Cosme DO High risk medication use 03/10/2025 Refill [facility] [address] [place] [phone] Damien Cosme DO from Last 3 Months Social History [...] Mass Index 40.75 05/14/2025 2:45 PM EDT Plan of Treatment Upcoming Encounters Date Type Department Care Team (Late st Contact Info) Description 09/10/2025 3:00 PM EST Office Visit [facility] [address] [phone] Valeria Machuca APRN [address] [phone] 01/07/2026 3:45 PM EDT Office Visit [facility] [address] [phone] Damien Cosme DO [address] [phone] Health Maintenance Due Date Last Done Comments [...] ve Non-Reacti ve 09/15/2024 11:42 PM EST [facility] Hep A IgM Non-Reacti ve Non-Reacti ve 09/15/2024 11:42 PM EST [facility] Hep B C IgM Non-Reacti ve Non-Reacti ve 09/15/2024 11:42 PM EST [facility] Hepatitis C Ab Non-Reacti ve Non-Reacti ve 09/15/2024 11:42 PM EST [facility] Blood Venipuncture / Unknown 09/15/2024 2:32 PM EST 09/15/2024 2:33 PM EST Narrative [facility] - 09/15/2024 11:42 PM EST Results may be falsely decreased if patient taking Biotin. us Damien Cosme DO LAB BLOOD ORDERABLES F inal Result [facility]
[address] [place] [address], from Last 3 Months or Most Recently Relevant to Health Maintenance Insurance [facility] MEDICARE ADVANTAGE HMO Care Teams Heavy Truck Mechanic Relationship Specialty Start Date End Date Jennifer Newton APRN [address] [facility] [address] [place] [id number] PCP - General Family Medicine 03/20/24
--- OUTSIDE RECORDS SUMMARY | 2025-05-20 11:54 | XMS_ITS | Encounter Summary ---
Author Organization [facility] Address [address] [place] [address] Care Team Providers Care Fence Erector Name Role Phone Savage Reardon MD Primary Care Provider [phone] Clayton James MD Unavailable [phone] Encounter Details Date Type Department Care Team (Late st Contact Info) Description 05/04/2024 Orders Only External Location [address] [place] [phone] Savage Reardon MD [address] [place] [address] Social History Tobacco Use Types [...] on filedocumented in this encounter Care Teams Fence Erector Relationship Specialty Start Date End Date Savage Reardon MD [address] [place] [address] PCP - General 12/13/20 Clayton James MD [address] [place] [phone] Surgeon Neurosurgery 09/22/24 documented as of this encounter
--- NOTE | 2025-05-20 12:07 | ED_ITS ---
<Statement entered by Rigo Cortes MD - 05/21/25 14:49> I was consulted by the MERRY, and we discussed the complexity of the problems being addressed. I approved the treatment and management plan for this patient's care in the emergency department, thus performing a substantive portion of the medical decision making. Rigo Cortes MD, LEI, FACEP Discharge Plan Disposition Patient Disposition: Admitted Condition: Fair Clinical Impressions Clinical Impression: Angina pectoris, unstable Discharge ED Provider: Rigo Cortes HPI General Chief Complaint: Chest Pain Stated Complaint: chest pain Time Seen by Provider: 05/20/25 12:07 Mode of Arrival: EMS Source of Information: Patient and EMS Description of Symptoms (Recalled from ER Triage Doc. by RN): pt was walking his dog and started having chest pain. took 3 of his own nitro and was attempting to drive himself to the hospital but called EMS due to no relief. given 324 of asa en route History of Present Illness HPI narrative: 65-year-old male presents to the emergency department via EMS for substernal chest pain nonradiating that describes as a squeezing , started around 10 AM today, that began when he was walking his dog, patient took 3 of his own nitroglycerin, patient was given 324 mg p.o. aspirin and route, at maximal his pain is a 7.5/10, which is currently at the bedside, initially it was a 6 out of 10 pain. Patient endorses shortness of breath, denies any fever chills cough congestion, denies any nausea, denies any abdominal pain does admit to some bloating , denies any constipation diarrhea melena hematochezia hematemesis or hemoptysis, denies any urinary type symptomatology, patient is a current everyday tobacco user, occasional alcohol use, frequent marijuana user. Other past medical history consistent with T2DM, CAD status post 10 stent placements, on dual antiplatelet therapy, GERD, MDD, EMILY, HFpEF, COPD, hyperlipidemia, hypertension, BPH, morbid obesity, lymphedema, degenerative disc disease lumbar spine, IBS. Initial triage vitals are notable for bradycardia otherwise unremarkable Please note that above description of symptoms, in this electronic medical record under categorization of recalled from ER triage doctor by RN are reflective of an initial nursing assessment, however, is not reflective of my full history and physical exam that was personally taken and clarified. Consequentially, this preceding description of symptoms, which may include the patient's categorized chief complaint in the EMR, do not reflect my personal clinical impression, and the ultimate description of history of present illness and patient stated complaints should be deferred to this section of the note. Unless stated otherwise or congruent with this section of the note, additional signs, symptoms, or incongruence should be interpreted as inaccurate with my clinical impression. 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 METAL PRN Chest 03/12/24 05/15/25 tablet Pain potassium chloride 10 mEq 10 meq PO DAILY 03/12/24 tablet,extended release cholecalciferol (vitamin D3) 125 5,000 unit PO DAILY 0 04/17/24 05/15/25 mcg (5,000 unit) tablet (Vitamin D3) dutasteride 0.5 mg capsule 0.5 mg PO DAILY 04/17/24 lamotrigine 150 mg tablet 150 mg PO BID 04/17/2405/15 vit C 250 mg-vit E 90 mg-zinc 40 1 cap PO BID 04/17/24 05/15/25 mg-copper 1 [id number] capsule (PreserVision AREDS-2) aspirin 81 mg tablet,delayed 81 mg PO DAILY 07/13/24 1 release furosemide 40 mg tablet 80 mg PO DAILY 07/13/2405/02 gabapentin 600 mg tablet 600 mg PO TID 10/23/2405/15 amlodipine 10 mg tablet 10 mg PO DAILY 12/19/2405/02 [id number] 1 cap PO QID 03/26/25 (pork)36,000-114,000-180k unit capsule,del rel (Creon) methylcellulose (with sugar) oral 1 tbsp PO DAILY 03/0305/15/25 powder (Citrucel (sucrose) oral powder) multivitamin 1 tab PO DAILY 03/26/2505/02 polyethylene glycol 3350 17 17 g PO DAILY 03/26/25 gram/dose oral powder (Miralax) Previous Rx's ?Medication ?Instructions ?Recorded ipratropium 0.5 mg-albuterol 3 mg 3 ml inhalation Q6H PRN shortness 07/15/24 (2.5 mg base)/3 mL nebulization of breath or wheezing 30 days #180 soln mL clopidogrel 75 mg tablet See Rx Instructions .Route 0 10/16/24 .COMPLEX #90 tabs ranolazine 1,000 mg See Rx Instructions .Route 0 11/20/24 tablet,extended release,12 hr .COMPLEX #180 tabs trazodone 100 mg tablet 100 - 150 mg (1 - 1.5 x 100 mg) PO 12/15/24 DAILY #45 tabs spironolactone 50 mg tablet 50 mg PO DAILY #90 tabs pantoprazole 40 mg tablet,delayed See Rx Instructions .Route 01/08/25 release .COMPLEX #90 tabs lamotrigine 25 mg tablet (Lamictal) 25 mg PO BID #60 t abs 03/11/25 varenicline tartrate 0.5 mg (11)-1 See Rx Instructions PO PER PKG DIR 03/22/25 mg (42) tablets in a dose pack #53 tabs (Chantix Starting Month Box) varenicline tartrate 1 mg tablet 1 mg PO BID #56 tabs 03/22/25 (Chantix Continuing Month Box) budesonide-formoterol HFA 160 2 puff inhalation BID 90 days 03/29/25 mcg-4.5 mcg/actuation aerosol #10.2 grams inhaler methocarbamol 750 mg tablet See Rx Instructions .Route 04/04/25 .COMPLEX #90 tabs lidocaine 5 % topical patch See Rx Instructions topica l 04/14/25 .COMPLEX #15 ea isosorbide mononitrate 60 mg See Rx Instructions .Rout e 04/19/25 tablet,extended release 24 hr .COMPLEX #90 tabs cariprazine 3 mg capsule (Vraylar) 3 mg PO DAILY #30 c aps 04/30/25 metoprolol succinate 100 mg 200 mg (2 x 100 mg) PO BID 30 days 05/01/25 tablet,extended release 24 hr #120 tabs Allergies Allergy/AdvReac Type Severity Reaction Status Date / Time nickel (NICKEL) Allergy Unknown I-RASH Verified 05/01/25 13:15 quetiapine (From SEROQUEL) Allergy Unknown I-RASH Verified 05/01/25 13:15 mirtazapine AdvReac Intermediate Hallucinati Verified 05/01/25 13:15 ng NSAIDS (Non-Steroidal AdvReac Other Verified 05/01/25 13:15 [facility] Disclaimer: The information contained in this section may have been updated after the patient was seen, as this information can be updated by other users. Medical History Lymphedema Incontinence BLADDER Enlarged prostate Anxiety Coronary artery sclerosis History of COVID-19 Irritable bowel syndrome (IBS) Paraseptal emphysema Typical angina Snoring Daytime somnolence Fatigue Atypical pneumonia Pulmonary emphysema Smoking greater than 30 pack years History of rheumatoid arthritis Acute and chronic respiratory failure with hypoxia Viral pneumonia Grief SOBOE (shortness of breath on exertion) Acute on chronic heart failure with preserved ejection fraction (HFpEF) Deviated nasal septum Macular degeneration CHF (congestive heart failure) COPD exacerbation COPD (chronic obstructive pulmonary disease) Major depressive disorder Callus Abnormal nuclear cardiac imaging test Angina pectoris Hypertension Hyperlipidemia Abnormal result of cardiovascular function study Tachycardia Unstable angina Dizziness GERD (gastroesophageal reflux disease) Abnormal cardiovascular stress test Typical angina Tobacco dependence syndrome Abnormal EKG CAD (coronary artery disease) Edema Dyspnea Chest pain Surgical History H/O neck surgery 2 PLATES, 4 SCREWS History of hernia surgery Two reported operations H/O removal of cyst History of cardiac cath Reported total of 10 stents placed H/O heart artery stent Reported total of 10 stents placed History of coronary artery stent placement Family History Other Cancer Heart disease Hypertension Melanoma Social History Smoking Status: Current every day smoker tobacco type: cigarettes packs per day: 1 and pipe alcohol intake: current alcohol intake frequency: a few times a month substance use type: former substance user and marijuana counseling given: No (patient refused) counseling provided: none current occupational status: other Travel in the last 8 weeks?: None household members: children housing: house marital status: custodial: No caffeine: Yes physical activity: none Have you lived/traveled outside [place] in past 30 days?: No Contact w/someone who lives/traveled outside [place] past 30 days?: No Exposure to someone with infectious disease in past 14 days?: No Do you have a fever (greater than 100.4 F or 38 C)?: No Have you tested positive for COVID-19?: No Exposed to someone with COVID-19 in past 14 days?: No Do you have a sore throat?: No Do you have a cough?: No Do you have any weakness?: No Do you have any diarrhea?: No Are you experiencing any unusual bleeding?: No Do you have any muscle aches/pain?: No Do you have any abdominal pain?: No Are you experiencing loss of taste or smell?: No Other Medical History Have you received the Flu Vaccine for this season: No Have you received the Pneumonia Vaccine: No ROS Obtained: Yes All systems reviewed & no additional complaints except as documented Physical Exam General General appearance: alert and in no apparent distress Head Head exam: atraumatic and normocephalic Eye Eye exam: Present normal appearance, PERRL and EOMI Neck Neck exam: Present full ROM; Absent meningismus Chest Chest inspection: Present normal inspection; Absent tenderness Respiratory Respiratory exam: Absent respiratory distress, wheezes, stridor, accessory muscle use or prolonged expiratory phase Cardiovascular Cardiovascular exam: Present normal rhythm and other (Pulses equal and symmetric in bilateral upper and lower extremities) Abdominal Exam Abdominal exam: Absent distention, tenderness, guarding or rebound Extremities Exam Extremities exam: Absent edema Neurological Exam Neurological exam: Present alert Psychiatric Psychiatric exam: Present normal affect Skin Skin exam: Present warm and dry HEART Score HEART Score HEART Score assessment performed?: Yes HEART Score: 4 Critical Care Critical Care Time Critical Care Time: No Medical Decision Making Medical Records Medical records reviewed: Yes I reviewed the patient's medical records. Tk Inquiry Pt receiving controlled substance: Yes Tk was queried for this patient: No Reason not queried -: Emergent pt cond-no time Risks and benefits of using a controlled substance: were discussed with pt by me Vital Signs Vital Signs: 05/20/25 11:47 05/20/25 12:00 05/20/25 12:30 Temperature 98.5 F Temperature Source Oral Pulse Rate 55 L Pulse Rate [Right] 61 Respiratory Rate 22 16 21 Blood Pressure 107/59 L 100/46 L Blood Pressure [Right Arm] 117/79 Blood Pressure Mean [Right Arm] 91 Blood Pressure Source Blood Pressure Position 02 Sat by Pulse Oximetry 99 97 95 Oxygen Delivery Method Room Air Room Air 05/20/25 13:00 05/20/25 13:15 05/20/25 13:30 Temperature Temperature Source Pulse Rate 52 L Pulse Rate [Right] Respiratory Rate 17 17 14 Blood Pressure 92/52 L 96/52 L Blood Pressure [Right Arm] Blood Pressure Mean [Right Arm] Blood Pressure Source Blood Pressure Position 02 Sat by Pulse Oximetry 95 95 94 L Oxygen Delivery Method Room Air 05/20/25 14:00 05/20/25 14:17 05/20/25 14:30 Temperature Temperature Source Pulse Rate 51 L 53 L 51 L Pulse Rate [Right] Respiratory Rate 15 18 18 Blood Pressure 96/54 L 92/57 L 91/52 L Blood Pressure [Right Arm] Blood Pressure Mean [Right Arm] Blood Pressure Source Blood Pressure Position 02 Sat by Pulse Oximetry 94 L 96 94 L Oxygen Delivery Method Room Air 05/20/25 15:00 05/20/25 15:19 05/20/25 15:30 Temperature Temperature Source Pulse Rate 55 L 53 L 69 Pulse Rate [Right] Respiratory Rate 18 13 14 Blood Pressure 93/52 L 96/54 L 90/52 L Blood Pressure [Right Arm] Blood Pressure Mean [Right Arm] Blood Pressure Source Blood Pressure Position 02 Sat by Pulse Oximetry 95 96 96 Oxygen Delivery Method Room Air Room Air 05/20/25 16:00 05/20/25 16:20 05/20/25 16:30 Temperature Temperature Source Pulse Rate 58 L 55 L 53 L Pulse Rate [Right] Respiratory Rate 13 18 13 Blood Pressure 94/50 L 94/45 L 95/50 L Blood Pressure [Right Arm] Blood Pressure Mean [Right Arm] Blood Pressure Source Blood Pressure Position 02 Sat by Pulse Oximetry 95 97 99 Oxygen Delivery Method Room Air Room Air Room Air 05/20/25 16:46 Temperature 98.1 F Temperature Source Oral Pulse Rate 52 L Pulse Rate [Right] Respiratory Rate 18 Blood Pressure 95/50 L Blood Pressure [Right Arm] Blood Pressure Mean [Right Arm] Blood Pressure Source Automatic Cuff Blood Pressure Position Sitting 02 Sat by Pulse Oximetry Oxygen Delivery Method Room Air Lab Data Lab results reviewed: Yes I reviewed the patient's lab results. Labs: Lab Results 05/20/25 11:45: WBC 8.5, RBC 3.47 L, Hgb 12.5 L, Hct 37.1 L, MCV 106.9 H, MCH 36.0 H, MCHC 33.7, RDW 14.1, Plt Count 302, MPV 8.7, Neut % (Auto) 63.9, Lymph % (Auto) 17.1, Irwin % (Auto) 14.3 H, Eos % (Auto) 2.0, Baso % (Auto) 0.6, Neut # (Auto) 5.4, Lymph # (Auto) 1.5, Irwin # (Auto) 1.2 H, Eos # (Auto) 0.2, Baso # (Auto) 0.1, PT 10.1, INR 0.90, D-Dimer 0.54 H, Sodium 137, Potassium 3.8, Chloride 101, Carbon Dioxide 29, Anion Gap 10.8, BUN 18, Creatinine 0.80, Estimated Creat Clear 113, Estimated GFR 96, Est GFR ( Amer) 117, Glucose 118 H, Calcium 8.8, Magnesium 1.9, Total Bilirubin 0.3, AST 28, ALT 25, Alkaline Phosphatase 96, Troponin I < 0.01, NT-Pro-B Natriuret Pep 599 H, Total Protein 6.9, Albumin 4.0, Globulin 2.9, Albumin/Globulin Ratio 1.4, Lipase 137 05/20/25 14:21: Troponin I < 0.01 05/20/25 11:45 05/20/25 11:45 Response Orders (Tests/Meds): ED MEDICATIONS Generic Name Dose Route Start Last Admin Trade Name Freq PRN Reason Stop Dose Admin Morphine Sulfate 4 mg 05/20/25 16:37 Morphine 4mg/Ml Syringe IV 06/19/25 16:36 Q4HP PRN Severe Pain (7-10) Pantoprazole Sodium 40 mg 05/20/25 21:00 Pantoprazole 40mg Tablet PO 06/19/25 20:59 HS JUSTIN Discontinued Medications Generic Name Dose Route Start Last Admin Trade Name Agnes PRN Reason Stop Dose Admin Enoxaparin Sodium 110 mg 05/20/25 16:39 05/20/25 17:05 Enoxaparin 100mg/Ml Syringe 1 mg/kg (110 mg) 05/20/25 16:40 110 mg SUBCUT Administration ONCE ONE Morphine Sulfate 4 mg 05/20/25 12:14 05/20/25 12:25 Morphine 4mg/Ml Syringe IV 05/20/25 12:15 4 mg ONCE ONE Administration Morphine Sulfate 2 mg 05/20/25 16:23 Morphine 2mg/Ml Syringe IV 05/20/25 16:24 ONCE ONE Ondansetron HCl 4 mg 05/20/25 12:15 05/20/25 12:25 Ondansetron 4mg/2ml Vial IV 05/20/25 12:16 4 mg ONCE ONE Administration ORDERS Category Date Time Status Cardiology Consult [Consult to Cardiology] [CONS] Cons 05/20/25 16:37 Active Routine XR chest portable Stat Exams 05/20/25 12:12 Completed Complete Blood Count Auto Diff AMLAB Lab 05/21/25 06:00 Ordered Complete Blood Count Auto Diff Stat Lab 05/20/25 11:45 Completed Comprehensive Metabolic Panel AMLAB Lab 05/21/25 06:00 Ordered Comprehensive Metabolic Panel Stat Lab 05/20/25 11:45 Completed D-Dimer Stat Lab 05/20/25 11:45 Completed Lipase Stat Lab 05/20/25 11:45 Completed Magnesium AMLAB Lab 05/21/25 06:00 Ordered Magnesium Stat Lab 05/20/25 11:45 Completed NT Pro Brain Natriuretic Pep. Stat Lab 05/20/25 11:45 Completed PT INR [Prothrombin Time INR] Stat Lab 05/20/25 11:45 Completed Troponin I Q3H Lab 05/20/25 14:21 Completed Troponin I Q3H Lab 05/20/25 18:15 Ordered Troponin I Stat Lab 05/20/25 11:45 Completed MDM Narrative Medical Decision Narrative: 65-year-old male presents to the emergency department with chest pain, for the last several hours, differential diagnose include but not limited to ACS, cardiac arrhythmia, electrolyte disturbance, costochondritis, panic attack, anxiety reaction, GERD, gastritis, pneumonia, PE, pneumothorax, among others. I discussed this patient's case with the attending physician Dr. Cortes Will obtain basic laboratory studies, lipase level, D-dimer, magnesium, proBNP, PT/INR, troponin, EKG, CXR, will give 4 mg IV morphine for pain and 4 mg IV Zofran for nausea. CBC is notable for anemia with a hemoglobin of 12.5/37.1 hematocrit, MCV is elevated at 106.9 seems in line with the patient's chronic/baseline anemia Coags within normal limits CMP is unremarkable D-dimer is minimally elevated at 0.54, however utilizing age-adjusted D-dimer criteria, VTE is unlikely, and utilizing years criteria/algorithm, PE is excluded. Initial troponin within normal limits at less than 0.01, proBNP is elevated at 599 I reviewed the patient's chest x-ray along the corresponding radiological report, no acute findings. Repeat troponin is less than 0.01. I discussed this patient's case with the on-call health social work professor at approximately 4:15 PM, he recommends admission for cardiac observation, heparin, and IV nitroglycerin if blood pressure tolerates, with cardiac catheterization most likely in the morning. Reexamination of the patient at approximately 4:19 PM patient is still complaining about 4 out of 5 out of 10 chest pain, substernal nonradiating, blood pressure has been somewhat soft in the emergency department, will give 2 mg IV morphine for chest pain. I attempted to discuss this patient's case with the hospitalist physician at 4:21 PM, currently he is on another phone call and will call me back. I discussed this patient's case with Dr. Lorenz the hospitalist physician at approximately 4:30 PM, he is in agreement with current admission plan/treatment plan for cardiac observation and cardiology consultation/catheterization in the AM. I discussed the need for admission with the patient at the bedside patient is in agreement with the current admission plan/treatment plan.
--- NOTE | 2025-05-20 12:12 | XR_ITS ---
PROCEDURE INFORMATION: Exam: XR Chest Exam date and time: 05/20/2025 12:15 PM Age: 65 years old Clinical indication: Pain; Shortness of breath; Chest pressure; Additional info: SOA and cp TECHNIQUE: Imaging protocol: Radiologic exam of the chest. Views: 1 view. COMPARISON: CT ANGIO CHEST 05/08/2025 2:59 PM FINDINGS: Lungs: Lungs are clear. No consolidation. Pleural spaces: No pleural effusion. No pneumothorax. Heart/Mediastinum: Cardiomediastinal silhouette is normal. Mild aortic calcification. Bones/joints: No acute abnormality. Cervicothoracic fusion hardware. IMPRESSION: No acute findings.
[2025-05-20 12:18] LABS: Hematocrit 37.1 % (42.0-52.0); Hemoglobin 12.5 g/dL (14.1-18.0); Immature Granulocytes % 2.1 %; Mean Corpuscular HGB Conc 33.7 g/dL (31.8-35.4); Mean Corpuscular Hemoglobin 36.0 pg (27.0-31.2); Mean Corpuscular Volume 106.9 fl (80-94); Nucleated Red Blood Cells % 0 %; Platelet Count 302 K/mm3 (142-424); Red Blood Count 3.47 M/mm3 (4.60-6.20); Red Cell Distribution Width-SD 54.9 fL; White Blood Count 8.5 K/mm3 (4.8-10.8)
[2025-05-20 12:22] LABS: Albumin Level 4.0 g/dl (3.5-5.0); Chloride 101 mmol/L (98-107); Potassium 3.8 mmoL/L (3.5-5.1); Sodium 137 mmol/L (136-145)
[2025-05-20 12:24] LABS: Lipase 137 U/L (23-300)
[2025-05-20 12:25] LABS: Alanine Aminotransferase 25 U/L (12-78); Albumin/Globulin Ratio 1.4 (1.1-1.8); Alkaline Phosphatase 96 U/L (38-126); Anion Gap 10.8 mEq/L (5-15); Aspartate Amino Transferase 28 U/L (17-59); Bilirubin,Total 0.3 mg/dl (0.2-1.3); Blood Urea Nitrogen 18 mg/dl (9-20); Carbon Dioxide 29 mmol/L (22.0-30.0); Creatinine Clearance Estimated 113 mL/min (50-200); Creatinine,Serum 0.80 mg/dl (0.66-1.25); Estimated Glomerular Filt Rate 96 ml/min (>60); GFR (African American) 117 ML/MIN (>60); Globulin 2.9 g/dL (1.3-3.2); Glucose 118 mg/dl (74-100); Magnesium 1.9 mg/dl (1.6-2.3); Total Protein,Serum 6.9 g/dl (6.3-8.2)
[2025-05-20] MEDS: ONDANSETRON 4MG/2ML VIAL 4 MG IV (12:25)
[2025-05-20] MEDS: MORPHINE 4MG/ML SYRINGE 4 MG IV (12:25)
[2025-05-20 12:26] LABS: Calcium 8.8 mg/dl (8.4-10.2)
[2025-05-20 12:28] LABS: INR 0.90 (0.9-1.1); Prothrombin Time 10.1 seconds (10.1-12.5)
[2025-05-20 12:34] LABS: NT Pro Brain Natriuretic Pep. 599 pg/mL (0-125)
[2025-05-20 12:42] LABS: Troponin I < 0.01 ng/ml (0.00-0.034)
[2025-05-20 12:45] LABS: D-Dimer 0.54 ug/mL (0.0-0.5)
--- NOTE | 2025-05-20 13:26 | PC.NURSE ---
Patient requested glass of water, per veronica DE LA FUENTE not at this time. Informed patient
[2025-05-20 15:03] LABS: Troponin I < 0.01 ng/ml (0.00-0.034)
--- NOTE | 2025-05-20 16:16 | PC.NURSE ---
Marcus speaking with Dr. Rubin
--- NOTE | 2025-05-20 16:37 | EXP.HP ---
History of Present Illness *Admission Date: 05/20/25 *Reason for visit:: chest pain *History of present illness: Mr. Maharaj is a 65-year-old male with history significant for obesity, CAD, chronic pain in his back, bipolar 2 disorder, who recurrent chest pain. He is scheduled for outpatient heart cath on Wednesday. States he woke up this morning and began having nonradiating chest pain that was a squeezing sensation. He thought it would get better and it did not. Worsened when he was walking his dog about 7:00 this morning. He took 3 of his nitro with no improvement. Thought he would drive himself to the ER but then decided he needed to call EMS due to worsening pain. On arrival, describes the pain as 7 out of 10. Caused him to feel short of breath. No nausea or vomiting. No syncope. Denies palpitations. States he has been under increased financial stress. Workup in the ER with no ST changes on EKG. Troponin initially unremarkable. Given his high risk chest pain and planned heart cath in a few days, medicine was consulted to admit for monitoring on telemetry and reevaluation in the morning. Patient does admit to some bloating , denies any constipation diarrhea melena hematochezia hematemesis or hemoptysis, denies any urinary type symptomatology, patient is a current everyday tobacco user, occasional alcohol use, frequent marijuana user. Other past medical history consistent with T2DM, CAD status post 10 stent placements, on dual antiplatelet therapy, GERD, MDD, EMILY, HFpEF, COPD, hyperlipidemia, hypertension, BPH, morbid obesity, lymphedema, degenerative disc disease lumbar spine, IBS. Initial triage vitals are notable for bradycardia otherwise unremarkable. Has had 3 prior caths in the past 18 months. Stents placed on the first of those 3. Last we have identified vessels not amenable to intervention due to location or size. [facility] Disclaimer: The information contained in this section may have been updated after the patient was seen, as this information can be updated by other users. Medical History Lymphedema Incontinence Enlarged prostate Anxiety Coronary artery sclerosis History of COVID-19 Irritable bowel syndrome (IBS) Paraseptal emphysema Typical angina Snoring Daytime somnolence Fatigue Atypical pneumonia Pulmonary emphysema Smoking greater than 30 pack years History of rheumatoid arthritis Acute and chronic respiratory failure with hypoxia Viral pneumonia Grief SOBOE (shortness of breath on exertion) Acute on chronic heart failure with preserved ejection fraction (HFpEF) Deviated nasal septum Macular degeneration CHF (congestive heart failure) COPD exacerbation COPD (chronic obstructive pulmonary disease) Major depressive disorder Callus Abnormal nuclear cardiac imaging test Angina pectoris Hypertension Hyperlipidemia Abnormal result of cardiovascular function study Tachycardia Unstable angina Dizziness GERD (gastroesophageal reflux disease) Abnormal cardiovascular stress test Typical angina Tobacco dependence syndrome Abnormal EKG CAD (coronary artery disease) Edema Dyspnea Chest pain Surgical History H/O neck surgery History of hernia surgery H/O removal of cyst History of cardiac cath H/O heart artery stent History of coronary artery stent placement Family History Other Cancer Heart disease Hypertension Melanoma Social History Smoking Status: Current every day smoker tobacco type: cigarettes packs per day: 1 and pipe alcohol intake: current alcohol intake frequency: a few times a month substance use type: former substance user and marijuana counseling given: No (patient refused) counseling provided: none current occupational status: retired and other Travel in the last 8 weeks?: None household members: children housing: house marital status: shelter: No caffeine: Yes physical activity: none Other Medical History Have you received the Flu Vaccine for this season: No Have you received the Pneumonia Vaccine: No Review of Systems Review of Systems Review of systems (narrative): 14 point review of systems performed, pertinent positives and negatives as per HPI Meds Home Medications and Allergies Home Medications ?Medication ?Instructions ?Recorded ?Confirmed ?Type albuterol sulfate 90 mcg/actuation 2 puff inhalation QIDP PRN 10/27/18 05/20/25 History aerosol inhaler Shortness Of Breath 25 days #9 grams tamsulosin 0.4 mg capsule 0.4 mg PO HS 90 days #90 caps 10/27/18 05/20/25 History folic acid 1 mg tablet 1 mg PO DAILY 10/26/22 05/20/25 History methotrexate sodium 2.5 mg tablet 20 mg PO WEEKLY 10/26/22 05/20/25 History atorvastatin 80 mg tablet 80 mg PO HS 03/12/24 05/20/25 History nitroglycerin 0.4 mg sublingual 0.4 mg sublingual Q5MINP PRN Chest 03/12/24 05/20/25 History tablet Pain potassium chloride 10 mEq 10 meq PO DAILY 03/12/24 05/20/25 History tablet,extended release cholecalciferol (vitamin D3) 125 5,000 unit PO DAILY 04/17/24 05/20/25 History mcg (5,000 unit) tablet (Vitamin D3) dutasteride 0.5 mg capsule 0.5 mg PO DAILY 04/17/24 05/20/25 History lamotrigine 150 mg tablet 150 mg PO BID 04/17/24 05/20/25 History vit C 250 mg-vit E 90 mg-zinc 40 1 cap PO BID 04/17/24 05/20/25 History mg-copper 1 ia-tubzco-tnazig capsule (PreserVision AREDS-2) aspirin 81 mg tablet,delayed 81 mg PO DAILY 07/13/24 05/20/25 History release furosemide 40 mg tablet 80 mg PO DAILY 07/13/24 05/20/25 History ipratropium 0.5 mg-albuterol 3 mg 3 ml inhalation Q6H PRN shortness 07/15/24 05/20/25 Rx (2.5 mg base)/3 mL nebulization of breath or wheezing 30 days #180 soln mL clopidogrel 75 mg tablet See Rx Instructions .Route 10/16/24 05/20/25 Rx .COMPLEX #90 tabs gabapentin 600 mg tablet 600 mg PO BID 10/23/24 05/20/25 History ranolazine 1,000 mg See Rx Instructions .Route 11/20/24 05/20/25 Rx tablet,extended release,12 hr .COMPLEX #180 tabs trazodone 100 mg tablet 100 - 150 mg (1 - 1.5 x 100 mg) PO 12/15/24 05/20/25 Rx DAILY #45 tabs amlodipine 10 mg tablet 10 mg PO DAILY 12/19/24 05/20/25 History spironolactone 50 mg tablet 50 mg PO DAILY #90 tabs 12/19/24 05/20/25 Rx pantoprazole 40 mg tablet,delayed See Rx Instructions .Route 01/08/25 05/20/25 Rx release .COMPLEX #90 tabs lamotrigine 25 mg tablet (Lamictal) 25 mg PO BID #60 tabs 03/11/25 05/20/25 Rx varenicline tartrate 1 mg tablet 1 mg PO BID #56 tabs 03/22/25 05/20/25 Rx (Chantix Continuing Month Box) uhwlzv-hzhhwavn-cwxrkia 1 cap PO QID 03/26/25 05/20/25 History (pork)36,000-114,000-180k unit capsule,del rel (Creon) methylcellulose (with sugar) oral 1 tbsp PO DAILY 03/26/25 05/20/25 History powder (Citrucel (sucrose) oral powder) multivitamin 1 tab PO DAILY 03/26/25 05/20/25 History polyethylene glycol 3350 17 17 g PO DAILY 03/26/25 05/20/25 History gram/dose oral powder (Miralax) budesonide-formoterol HFA 160 2 puff inhalation BID 90 days 03/29/25 05/20/25 Rx mcg-4.5 mcg/actuation aerosol #10.2 grams inhaler methocarbamol 750 mg tablet See Rx Instructions .Route 04/04/25 05/20/25 Rx .COMPLEX #90 tabs isosorbide mononitrate 60 mg See Rx Instructions .Route 04/19/25 05/20/25 Rx tablet,extended release 24 hr .COMPLEX #90 tabs cariprazine 3 mg capsule (Vraylar) 3 mg PO DAILY #30 caps 04/30/25 05/20/25 Rx metoprolol succinate 100 mg 200 mg (2 x 100 mg) PO BID 30 days 05/01/25 05/20/25 Rx tablet,extended release 24 hr #120 tabs New Prescriptions to Start Prescriptions: Allergies Allergy/AdvReac Type Severity Reaction Status Date / Time nickel (NICKEL) Allergy Unknown I-RASH Verified 05/01/25 13:15 quetiapine (From SEROQUEL) Allergy Unknown I-RASH Verified 05/01/25 13:15 mirtazapine AdvReac Intermediate Hallucinati Verified 05/01/25 13:15 ng NSAIDS (Non-Steroidal AdvReac Other Verified 05/01/25 13:15 Anti-Inflamma Exam Data for Last 24 hours Vital signs and Labs for Last 24 Hours: Temp Pulse Resp BP Pulse Ox O2 Del Method 98.5 F 55 L 18 93/52 L 95 Room Air 05/20/25 11:47 05/20/25 15:00 05/20/25 15:00 05/20/25 15:00 05/20/25 15:00 05/20/25 14:00 Laboratory Results - last 24 hr 05/20/25 11:45: WBC 8.5, RBC 3.47 L, Hgb 12.5 L, Hct 37.1 L, MCV 106.9 H, MCH 36.0 H, MCHC 33.7, RDW 14.1, Plt Count 302, MPV 8.7, Neut % (Auto) 63.9, Lymph % (Auto) 17.1, [place] % (Auto) 14.3 H, Eos % (Auto) 2.0, Baso % (Auto) 0.6, Neut # (Auto) 5.4, Lymph # (Auto) 1.5, [place] # (Auto) 1.2 H, Eos # (Auto) 0.2, Baso # (Auto) 0.1, PT 10.1, INR 0.90, D-Dimer 0.54 H, Sodium 137, Potassium 3.8, Chloride 101, Carbon Dioxide 29, Anion Gap 10.8, BUN 18, Creatinine 0.80, Estimated Creat Clear 113, Estimated GFR 96, Est GFR ( Amer) 117, Glucose 118 H, Calcium 8.8, Magnesium 1.9, Total Bilirubin 0.3, AST 28, ALT 25, Alkaline Phosphatase 96, Troponin I < 0.01, NT-Pro-B Natriuret Pep 599 H, Total Protein 6.9, Albumin 4.0, Globulin 2.9, Albumin/Globulin Ratio 1.4, Lipase 137 05/20/25 14:21: Troponin I < 0.01 I & O for Last 24 hours: Intake & Output 05/17/25 05/18/25 05/19/25 05/20/25 23:59 23:59 23:59 23:59 Weight 111.13 kg Constitutional Constitutional: no acute distress, morbidly obese and cooperative *Routine HEENT Exam Head: Present normocephalic Eye: Present EOMI and PERRL ENT: Present mucous membranes moist *Routine Neck Exam Neck: Present supple; Absent lymphadenopathy Routine Chest/Breast/Axilla Exam Chest wall: Present tenderness (And left chest. Different from the pain he is describing however) *Routine Respiratory Exam Respiratory: Present CTA bilaterally; Absent rhonchi, wheezes or crackles *Routine Cardiovascular Exam Cardiovascular: Present RRR, Normal S1 and Normal S2 *Routine Abdominal Exam Abdominal: Present soft, normoactive bowel sounds and obese; Absent tenderness *Routine Rectal Exam Rectal:: deferred *Routine Genitalia Exam Genitalia:: deferred *Routine Extremities Exam Extremities: Present edema; Absent cyanosis or clubbing *Routine Skin Exam Skin: Present intact and warm; Absent rash *Routine Neurological Exam Neurological: Present alert, oriented X3 and moving all extremities; Absent altered mental status Routine Psychiatric Exam Psychiatric: Present depressed; Absent suicidal ideation Assessment and Plan *Assessment and plan (1) Chronic back pain: Status: Acute Category: Medical Code(s): M54.9 - Dorsalgia, unspecified; G89.29 - Other chronic pain (2) Bipolar 2 disorder, major depressive episode: Status: Acute Category: Medical Code(s): F31.81 - Bipolar II disorder (3) Lumbar facet arthropathy: Status: Acute Category: Medical Code(s): M47.816 - Spondylosis without myelopathy or radiculopathy, lumbar region (4) Morbid obesity: Status: Chronic Category: Medical Code(s): E66.01 - Morbid (severe) obesity due to excess calories (5) BPH (benign prostatic hyperplasia): Status: Chronic Qualifiers: Lower urinary tract symptom detail: unspecified Category: Medical Code(s): N40.0 - Benign prostatic hyperplasia without lower urinary tract symptoms (6) HTN (hypertension): Status: Chronic Qualifiers: Hypertension type: essential hypertension Qualified Code(s): I10 - Essential (primary) hypertension Category: Medical Code(s): I10 - Essential (primary) hypertension (7) HLD (hyperlipidemia): Status: Chronic Qualifiers: Hyperlipidemia type: mixed hyperlipidemia Qualified Code(s): E78.2 - Mixed hyperlipidemia Category: Medical Code(s): E78.5 - Hyperlipidemia, unspecified (8) Paraseptal emphysema: Status: Acute Category: Medical Code(s): J43.8 - Other emphysema (9) GERD (gastroesophageal reflux disease): Status: Chronic Qualifiers: Esophagitis presence: without esophagitis Qualified Code(s): K21.9 - Gastro-esophageal reflux disease without esophagitis Category: Medical Code(s): K21.9 - Gastro-esophageal reflux disease without esophagitis (10) CAD (coronary artery disease): Status: Chronic Qualifiers: Associated angina: with other forms of angina Coronary Disease-Associated Artery/Lesion type: [place] artery [place] vs. transplanted heart: [place] heart Qualified Code(s): I25.118 - Atherosclerotic heart disease of [place] coronary artery with other forms of angina pectoris Category: Medical Code(s): I25.10 - Atherosclerotic heart disease of [place] coronary artery without angina pectoris (11) History of coronary artery stent placement: Status: Chronic Category: Surgical Code(s): Z95.5 - Presence of coronary angioplasty implant and graft (12) Angina pectoris, unstable: Status: Acute Category: Medical Code(s): I20.0 - Unstable angina Plan 65-year-old male with multiple comorbidities and complex cardiovascular history. Presents with unstable angina. Discussed case with ER provider, request admission for evaluation by cardiology in the morning and monitoring due to high risk chest pain. I decided to admit for further care. Initiated on Lovenox and telemetry. Cardiology consulted to evaluate in the morning. Problems addressed as follows: Admitted for cardiology eval. Initial troponins less than 0.01. Chest x-ray per my review with no acute process EKG per my review with no ST changes. 3 previous heart cath within the past 18 months. First when he received a stent. Subsequent to head small vessel disease not amenable to stenting. On maximal antianginals. Resuming his home regimen at this time. Cardiology to evaluate him in the morning. Repeat CBC, CMP, magnesium ordered for the morning. Administer Lovenox 1 mg/kg once for anticoagulation. Nitroglycerin as needed for chest pain. Will monitor on telemetry. Continue amlodipine 10 mg daily, aspirin 81 mg daily, Lipitor 80 mg nightly, Plavix 75 mg daily, Lasix 80 mg daily, isosorbide mononitrate 60 mg daily, metoprolol succinate 200 mg twice daily ranolazine 1000 mg twice daily, and spironolactone 50 mg daily For bipolar continue his home Vraylar 3 mg daily, Lamictal 25 mg twice daily, trazodone 100 mg nightly Chronic pain RA: - Continue gabapentin 600 mg twice daily, methocarbamol 750 mg daily as needed; methotrexate 20 mg weekly on hold during admission. Resume after discharge BPH: Continue dutasteride 0.5 mg daily; tamsulosin 0.4 mg nightly Full code Lovenox 1 mg/kg once, reevaluate in the morning Cardiac diet, n.p.o. midnight
--- NOTE | 2025-05-20 16:37 | PC.NURSE ---
house servant contacted for bed.
[2025-05-20] MEDS: MORPHINE 4MG/ML SYRINGE 2 MG IV (18:06)
[2025-05-20 20:50] LABS: Troponin I < 0.01 ng/ml (0.00-0.034)
[2025-05-20] MEDS: ALBUTEROL-HFA 90MCG/PUFF INHALER 8GM 2 PUFF IH (21:48)
[2025-05-20] MEDS: GABAPENTIN 600MG TABLET 600 MG PO (21:59)
[2025-05-20] MEDS: RANOLAZINE 500MG ER TABLET 1000 MG PO (21:59)
[2025-05-20] MEDS: ATORVASTATIN 40MG TABLET 80 MG PO (22:00)
[2025-05-20] MEDS: METHOCARBAMOL 500MG TABLET 750 MG PO (22:00)
[2025-05-20] MEDS: TAMSULOSIN 0.4MG CAPSULE 0.4 MG PO (22:00)
[2025-05-20] MEDS: TRAZODONE 50MG TABLET 100 MG PO (22:06)
[2025-05-20] MEDS: FUROSEMIDE 40 MG TABLET PO (22:06)
[2025-05-21] VITALS (17 sets, daily range): BP systolic 102–136; BP diastolic 45–76; PULSE 46–80; RESP 12–20; TEMP 36.4–36.7; O2SAT 90–98; BMI 39.9
[2025-05-21] MEDS: ALBUTEROL-HFA 90MCG/PUFF INHALER 8GM 2 PUFF IH (05:48)
[2025-05-21 06:34] LABS: Hematocrit 38.1 % (42.0-52.0); Hemoglobin 13.0 g/dL (14.1-18.0); Immature Granulocytes % 1.5 %; Mean Corpuscular HGB Conc 34.1 g/dL (31.8-35.4); Mean Corpuscular Hemoglobin 36.8 pg (27.0-31.2); Mean Corpuscular Volume 107.9 fl (80-94); Nucleated Red Blood Cells % 0 %; Platelet Count 294 K/mm3 (142-424); Red Blood Count 3.53 M/mm3 (4.60-6.20); Red Cell Distribution Width-SD 55.8 fL; White Blood Count 9.6 K/mm3 (4.8-10.8)
[2025-05-21 06:41] LABS: Albumin Level 3.7 g/dl (3.5-5.0); Chloride 101 mmol/L (98-107); Potassium 3.7 mmoL/L (3.5-5.1); Sodium 135 mmol/L (136-145)
[2025-05-21 06:44] LABS: Alanine Aminotransferase 21 U/L (12-78); Albumin/Globulin Ratio 1.4 (1.1-1.8); Alkaline Phosphatase 92 U/L (38-126); Anion Gap 8.7 mEq/L (5-15); Aspartate Amino Transferase 26 U/L (17-59); Bilirubin,Total 0.4 mg/dl (0.2-1.3); Blood Urea Nitrogen 16 mg/dl (9-20); Calcium 8.6 mg/dl (8.4-10.2); Carbon Dioxide 29 mmol/L (22.0-30.0); Creatinine Clearance Estimated 128 mL/min (50-200); Creatinine,Serum 0.90 mg/dl (0.66-1.25); Estimated Glomerular Filt Rate 84 ml/min (>60); GFR (African American) 102 ML/MIN (>60); Globulin 2.6 g/dL (1.3-3.2); Glucose 88 mg/dl (74-100); Magnesium 2.0 mg/dl (1.6-2.3); Total Protein,Serum 6.3 g/dl (6.3-8.2)
[2025-05-21] MEDS: FOLIC ACID 1MG TABLET 1 MG PO (08:52)
[2025-05-21] MEDS: RANOLAZINE 500MG ER TABLET 1000 MG PO (08:52)
[2025-05-21] MEDS: POTASSIUM CHLORIDE 10MEQ TABLET.ER 10 MEQ PO (08:52)
[2025-05-21] MEDS: CHOLECALCIFEROL 1,000 UNITS (25MCG) TABLET 25 MCG PO (08:52)
[2025-05-21] MEDS: ASPIRIN EC 81MG TABLET 81 MG PO (08:52)
[2025-05-21] MEDS: GABAPENTIN 600MG TABLET 600 MG PO (08:52)
[2025-05-21] MEDS: POLYETHYLENE GLYCOL 3350 17 GM PACKET PO (08:53)
[2025-05-21] MEDS: METHOCARBAMOL 500MG TABLET 750 MG PO ×2 (08:53→12:06)
--- NOTE | 2025-05-21 10:12 | IR_ITS ---
APPROVED REPORT Patient Location: Inpatient Fructose Loader: Art Grijalva, RT (R) PROCEDURES 1. Left heart catheterization 2. Selective coronary arteriography 3. Left ventriculography INDICATION 1. Unstable angina, 2. Coronary artery disease SCAI INDICATION Patient is 65-year-old white male with known coronary arteries presented with increasing pressure and tightness in the chest. Progressive symptoms. Secondary to this referred directly for left heart catheterization Informed consent was obtained prior to the procedure. COMPLICATIONS NONE Estimated Blood Loss: LESS THAN 10 ML TECHNIQUE One percent lidocaine used to anesthetize the right anterior aspect of the wrist. The right radial artery was accessed via the Seldinger technique. A 6 [place] sheath was placed in the right radial artery. 2.5 mg of Verapamil, 800 mcg of nitroglycerin, 1mg Lidocaine and 5000 U Heparin were given through the arterial sheath. The JL3 catheter and a 3 DRC catheter were also used to perform left heart catheterization, left ventriculogram and selective coronary angiogram. At the end of the procedure the sheath was removed good hemostasis was achieved using Traclet band, patient was transferred to the postop holding area in stable condition. ANGIOGRAPHIC RESULTS The left main artery Short and angiographically normal The left anterior descending artery Stents throughout the ostial/proximal/mid vessel free of disease. There was then a small gap where the diagonal branch came off which had smooth 20% stenosis. There was then another stent in the mid left anterior descending which was free of disease. Normal flow into the mid and distal vessel and no compromise of the diagonal branches The circumflex artery Large in size. Nondominant. Stent in the proximal vessel free of disease The right coronary artery Large and dominant. Stents noted throughout the proximal/mid/distal vessel extending into the large posterior descending artery free of disease. Posterolateral branch was small in size with no significant stenoses. There was a distal tapering of the posterior descending artery and posterior lateral branch but no significant stenoses The POLK ventriculogram reveals Normal left ventricular systolic function with an ejection fraction of 60 to 65%. No wall motion abnormalities. No noted mitral insufficiency The left ventricular end-diastolic pressure 11 IMPRESSION 1. Mild diffuse coronary artery disease 2. Patent stents noted throughout the ostial/proximal and mid left anterior descending as well as another patent stent in the mid left anterior descending after the takeoff of a moderate-sized diagonal branch 2. Patent stent in the proximal large left circumflex 3. Patent stents throughout the proximal/mid/distal large dominant right coronary artery extending into the posterior descending artery 4. Normal left ventricular systolic function 5. Normal left ventricular end-diastolic pressure 6. Successful placement of a radial band on the right radial artery PLAN 1. Patient will continue with aggressive medical therapy. Mild diffuse coronary artery disease in the [place] vessels with patent stents throughout the coronary system. Left ventricular function is preserved and normal as is the left ventricular end-diastolic pressure. Tapering of the distal right coronary artery but no significant stenoses. ALEXANDER-3 flow in all vessels. No need for intervention at this time. Follow-up in cardiology clinic in 1 to 2 weeks for further evaluation and treatment Electronically signed by : Fidel Ribeiro MD 05/21/2025 14:26:12
[2025-05-21] MEDS: CLOPIDOGREL 75MG TAB 75 MG PO (12:06)
--- NOTE | 2025-05-21 12:50 | EXP.CARD.CON ---
History of Present Illness History of Present Illness Consult date: 05/21/25 Requesting physician: Owen Lorenz Consult reason: chest pain Chief complaint: chest pain History of present illness: Primary service: Mr. Maharaj is a 65-year-old male with history significant for obesity, CAD, chronic pain in his back, bipolar 2 disorder, who recurrent chest pain. He is scheduled for outpatient heart cath on Wednesday. States he woke up this morning and began having nonradiating chest pain that was a squeezing sensation. He thought it would get better and it did not. Worsened when he was walking his dog about 7:00 this morning. He took 3 of his nitro with no improvement. Thought he would drive himself to the ER but then decided he needed to call EMS due to worsening pain. On arrival, describes the pain as 7 out of 10. Caused him to feel short of breath. No nausea or vomiting. No syncope. Denies palpitations. States he has been under increased financial stress. Workup in the ER with no ST changes on EKG. Troponin initially unremarkable. Given his high risk chest pain and planned heart cath in a few days, medicine was consulted to admit for monitoring on telemetry and reevaluation in the morning. Patient does admit to some bloating , denies any constipation diarrhea melena hematochezia hematemesis or hemoptysis, denies any urinary type symptomatology, patient is a current everyday tobacco user, occasional alcohol use, frequent marijuana user. Other past medical history consistent with T2DM, CAD status post 10 stent placements, on dual antiplatelet therapy, GERD, MDD, EMILY, HFpEF, COPD, hyperlipidemia, hypertension, BPH, morbid obesity, lymphedema, degenerative disc disease lumbar spine, IBS. Initial triage vitals are notable for bradycardia otherwise unremarkable. Has had 3 prior caths in the past 18 months. Stents placed on the first of those 3. Last we have identified vessels not amenable to intervention due to location or size. Cards Note: Patient continues to endorse episodes of left-sided chest pain radiating into neck and back. Patient was previously scheduled for left heart catheterization on Wednesday but reports chest pain got worse throughout the weekend. Patient has extensive coronary artery disease history with multiple OMAIRA. EKG upon admission was negative for STEMI. Troponins remain negative. Chest pain present with activity and rest despite multiple antianginal medications. [facility] Disclaimer: The information contained in this section may have been updated after the patient was seen, as this information can be updated by other users. Medical History Lymphedema Incontinence Enlarged prostate Anxiety Coronary artery sclerosis History of COVID-19 Irritable bowel syndrome (IBS) Paraseptal emphysema Typical angina Snoring Daytime somnolence Fatigue Atypical pneumonia Pulmonary emphysema Smoking greater than 30 pack years History of rheumatoid arthritis Acute and chronic respiratory failure with hypoxia Viral pneumonia Grief SOBOE (shortness of breath on exertion) Acute on chronic heart failure with preserved ejection fraction (HFpEF) Deviated nasal septum Macular degeneration CHF (congestive heart failure) COPD exacerbation COPD (chronic obstructive pulmonary disease) Major depressive disorder Callus Abnormal nuclear cardiac imaging test Angina pectoris Hypertension Hyperlipidemia Abnormal result of cardiovascular function study Tachycardia Unstable angina Dizziness GERD (gastroesophageal reflux disease) Abnormal cardiovascular stress test Typical angina Tobacco dependence syndrome Abnormal EKG CAD (coronary artery disease) Edema Dyspnea Chest pain Surgical History H/O neck surgery History of hernia surgery H/O removal of cyst History of cardiac cath H/O heart artery stent History of coronary artery stent placement Family History Other Cancer Heart disease Hypertension Melanoma Social History Smoking Status: Current every day smoker tobacco type: cigarettes packs per day: 1 and pipe alcohol intake: current alcohol intake frequency: a few times a month substance use type: former substance user and marijuana counseling given: No (patient refused) counseling provided: none current occupational status: retired and other Travel in the last 8 weeks?: None household members: children housing: house marital status: detention: No caffeine: Yes physical activity: none Have you lived/traveled outside [place] in past 30 days?: No Contact w/someone who lives/traveled outside [place] past 30 days?: No Exposure to someone with infectious disease in past 14 days?: No Do you have a fever (greater than 100.4 F or 38 C)?: No Have you tested positive for COVID-19?: No Exposed to someone with COVID-19 in past 14 days?: No Do you have a sore throat?: No Do you have a cough?: No Do you have any weakness?: No Do you have any diarrhea?: No Are you experiencing any unusual bleeding?: No Do you have any muscle aches/pain?: No Do you have any abdominal pain?: No Are you experiencing loss of taste or smell?: No Review of Systems Review of Systems Review of systems:: pertinent systems reviewed and negative unless documented below Constitutional Constitutional: Reports system reviewed and no additional complaints, except as documented *Cardiovascular Cardiovascular: Reports chest pain *Respiratory Respiratory: Reports system reviewed and no additional complaints, except as documented *Gastrointestinal Gastrointestinal: Reports system reviewed and no additional complaints, except as documented *Neurologic Neurologic: Reports system reviewed and no additional complaints, except as documented and Denies confusion Psychiatric Psychiatric: Reports system reviewed and no additional complaints, except as documented and Denies confusion Exam Data for Last 24 hours Vital signs and Labs for Last 24 Hours: Temp Pulse Resp BP Pulse Ox O2 Del Method 97.8 F 53 L 16 106/56 L 98 Room Air 05/21/25 11:49 05/21/25 11:49 05/21/25 11:49 05/21/25 11:49 05/21/25 11:49 05/21/25 11:49 Laboratory Results - last 24 hr 05/20/25 14:21: Troponin I < 0.01 05/20/25 20:00: Troponin I < 0.01 05/21/25 05:18: WBC 9.6, RBC 3.53 L, Hgb 13.0 L, Hct 38.1 L, MCV 107.9 H, MCH 36.8 H, MCHC 34.1, RDW 14.3, Plt Count 294, MPV 8.7, Neut % (Auto) 61.3, Lymph % (Auto) 21.8, [place] % (Auto) 12.1 H, Eos % (Auto) 2.7, Baso % (Auto) 0.6, Neut # (Auto) 5.9, Lymph # (Auto) 2.1, [place] # (Auto) 1.2 H, Eos # (Auto) 0.3, Baso # (Auto) 0.1, Sodium 135 L, Potassium 3.7, Chloride 101, Carbon Dioxide 29, Anion Gap 8.7, BUN 16, Creatinine 0.90, Estimated Creat Clear 128, Estimated GFR 84, Est GFR ( Amer) 102, Glucose 88 D, Calcium 8.6, Magnesium 2.0, Total Bilirubin 0.4, AST 26, ALT 21, Alkaline Phosphatase 92, Total Protein 6.3, Albumin 3.7, Globulin 2.6, Albumin/Globulin Ratio 1.4 I & O for Last 24 hours: Intake & Output 05/18/25 05/19/25 05/20/25 05/21/25 23:59 23:59 23:59 23:59 Intake Total 480 / 720 240 / 240 Output Total 0 / 800 1999 / 1999 Balance 480 / -80 -1760 / -1760 Weight 280 lb 4 oz 279 lb 6.4 oz Constitutional Constitutional: no acute distress *Routine Respiratory Exam Respiratory: Present CTA bilaterally and symmetric chest movement *Routine Cardiovascular Exam Cardiovascular: Present RRR, Normal S1 and Normal S2 *Routine Abdominal Exam Abdominal: Present soft and normoactive bowel sounds; Absent tenderness *Routine Extremities Exam Extremities: Present full ROM and normal capillary refill; Absent edema *Routine Skin Exam Skin: Present intact, dry and warm Detailed Neck Exam: Thyroids Thyroid: Absent bruit Meds Home Medications and Allergies Home Medications ?Medication ?Instructions ?Recorded ?Confirmed ?Type albuterol sulfate 90 mcg/actuation 2 puff inhalation QIDP PRN 10/27/18 05/20/25 History aerosol inhaler Shortness Of Breath 25 days #9 grams tamsulosin 0.4 mg capsule 0.4 mg PO HS 90 days #90 caps 10/27/18 05/20/25 History folic acid 1 mg tablet 1 mg PO DAILY 10/26/22 05/20/25 History methotrexate sodium 2.5 mg tablet 20 mg PO WEEKLY 10/26/22 05/20/25 History atorvastatin 80 mg tablet 80 mg PO HS 03/12/24 05/20/25 History nitroglycerin 0.4 mg sublingual 0.4 mg sublingual Q5MINP PRN Chest 03/12/24 05/20/25 History tablet Pain potassium chloride 10 mEq 10 meq PO DAILY 03/12/24 05/20/25 History tablet,extended release cholecalciferol (vitamin D3) 125 5,000 unit PO DAILY 04/17/24 05/20/25 History mcg (5,000 unit) tablet (Vitamin D3) dutasteride 0.5 mg capsule 0.5 mg PO DAILY 04/17/24 05/20/25 History lamotrigine 150 mg tablet 150 mg PO BID 04/17/24 05/20/25 History vit C 250 mg-vit E 90 mg-zinc 40 1 cap PO BID 04/17/24 05/20/25 History mg-copper 1 [id number] capsule (PreserVision AREDS-2) aspirin 81 mg tablet,delayed 81 mg PO DAILY 07/13/24 05/20/25 History release furosemide 40 mg tablet 80 mg PO DAILY 07/13/24 05/20/25 History ipratropium 0.5 mg-albuterol 3 mg 3 ml inhalation Q6H PRN shortness 07/15/24 05/20/25 Rx (2.5 mg base)/3 mL nebulization of breath or wheezing 30 days #180 soln mL clopidogrel 75 mg tablet See Rx Instructions .Route 10/16/24 05/20/25 Rx .COMPLEX #90 tabs gabapentin 600 mg tablet 600 mg PO BID 10/23/24 05/20/25 History ranolazine 1,000 mg See Rx Instructions .Route 11/20/24 05/20/25 Rx tablet,extended release,12 hr .COMPLEX #180 tabs trazodone 100 mg tablet 100 - 150 mg (1 - 1.5 x 100 mg) PO 12/15/24 05/20/25 Rx DAILY #45 tabs amlodipine 10 mg tablet 10 mg PO DAILY 12/19/24 05/20/25 History spironolactone 50 mg tablet 50 mg PO DAILY #90 tabs 12/19/24 05/20/25 Rx pantoprazole 40 mg tablet,delayed See Rx Instructions .Route 01/08/25 05/20/25 Rx release .COMPLEX #90 tabs lamotrigine 25 mg tablet (Lamictal) 25 mg PO BID #60 tabs 03/11/25 05/20/25 Rx varenicline tartrate 1 mg tablet 1 mg PO BID #56 tabs 03/22/25 05/20/25 Rx (Chantix Continuing Month Box) [id number] 1 cap PO QID 03/26/25 05/20/25 History (pork)36,000-114,000-180k unit capsule,del rel (Creon) methylcellulose (with sugar) oral 1 tbsp PO DAILY 03/26/25 05/20/25 History powder (Citrucel (sucrose) oral powder) multivitamin 1 tab PO DAILY 03/26/25 05/20/25 History polyethylene glycol 3350 17 17 g PO DAILY 03/26/25 05/20/25 History gram/dose oral powder (Miralax) budesonide-formoterol HFA 160 2 puff inhalation BID 90 days 03/29/25 05/20/25 Rx mcg-4.5 mcg/actuation aerosol #10.2 grams inhaler methocarbamol 750 mg tablet See Rx Instructions .Route 04/04/25 05/20/25 Rx .COMPLEX #90 tabs isosorbide mononitrate 60 mg See Rx Instructions .Route 04/19/25 05/20/25 Rx tablet,extended release 24 hr .COMPLEX #90 tabs cariprazine 3 mg capsule (Vraylar) 3 mg PO DAILY #30 caps 04/30/25 05/20/25 Rx metoprolol succinate 100 mg 200 mg (2 x 100 mg) PO BID 30 days 05/01/25 05/20/25 Rx tablet,extended release 24 hr #120 tabs New Prescriptions to Start Prescriptions: Allergies Allergy/AdvReac Type Severity Reaction Status Date / Time nickel (NICKEL) Allergy Unknown I-RASH Verified 05/01/25 13:15 quetiapine (From SEROQUEL) Allergy Unknown I-RASH Verified 05/01/25 13:15 mirtazapine AdvReac Intermediate Hallucinati Verified 05/01/25 13:15 ng NSAIDS (Non-Steroidal AdvReac Other Verified 05/01/25 13:15 Anti-Inflamma Assessment and Plan *Assessment and plan (1) CAD (coronary artery disease): Status: Chronic Qualifiers: Associated angina: with other forms of angina Coronary Disease-Associated Artery/Lesion type: [place] artery [place] vs. transplanted heart: [place]aver heart Qualified Code(s): I25.118 - Atherosclerotic heart disease of [place] coronary artery with other forms of angina pectoris Category: Medical Code(s): I25.10 - Atherosclerotic heart disease of [place] coronary artery without angina pectoris (2) Angina pectoris, unstable: Status: Acute Category: Medical Code(s): I20.0 - Unstable angina Plan History of coronary artery disease Unstable angina EKG negative for STEMI Serial troponins negative Normal EF Will proceed with left heart catheterization to evaluate coronary artery disease. Discussed risk versus benefits he is agreeable to proceed. Continue aspirin statin and Plavix plus antianginals Cardiac meds: Aspirin 81 mg p.o. daily Norvasc 10 mg p.o. daily Plavix 75 mg p.o. daily Lasix 40 mg p.o. twice daily Imdur 90 mg p.o. twice daily Metoprolol succinate 200 mg p.o. twice daily Aldactone 50 mg p.o. daily Ranolazine 1000 mg p.o. twice daily
[2025-05-21] MEDS: HEPARIN 1,000 UNITS/500ML NS (CATH LAB) 3000 UNIT IV (13:37)
[2025-05-21] MEDS: MIDAZOLAM HCL 1MG/ML 5ML VIAL 1 MG IV (13:37)
[2025-05-21] MEDS: NITROGLYCERIN 800MCG/8ML SYR (CATH LAB) 800 MCG IA (13:37)
[2025-05-21] MEDS: LIDOCAINE 1% 10ML MDV 10 ML IJ (13:37)
[2025-05-21] MEDS: 0.9 % SODIUM CHLORIDE 500 ML 25 ML IV (13:37)
[2025-05-21] MEDS: FENTANYL 100MCG/2ML VIAL 50 MCG IV (13:38)
[2025-05-21] MEDS: HEPARIN 1,000 UNITS/ML 10ML VIAL (CATH LAB) 5000 UNIT IV (13:40)
[2025-05-21] MEDS: VERAPAMIL 2.5MG/ML 2ML VIAL 2.5 MG IV (13:40)
[2025-05-21] MEDS: IOPAMIDOL-370 (76%);100ML BOTTLE 90 ML IV (14:49)
--- NOTE | 2025-05-21 14:54 | P.DS_ITS ---
<Statement entered by Owen Lorenz MD - 05/23/25 09:46> Rounded on patient after nurse practitioner. Personally examined and interviewed patient. Agree with exam findings and care plan as documented. General Admission date:: 05/20/25 Discharge date: 05/21/25 HPI HPI HPI: Mr. Maharaj is a 65-year-old male with history significant for obesity, CAD, chronic pain in his back, bipolar 2 disorder, who recurrent chest pain. He is scheduled for outpatient heart cath on Wednesday. States he woke up this morning and began having nonradiating chest pain that was a squeezing sensation. He t hought it would get better and it did not. Worsened when he was walking his dog about 7:00 this morning. He took 3 of his nitro with no improvement. Thought he would drive himself to the ER but then decided he needed to call EMS due to worsening pain. On arrival, describes the pain as 7 out of 10. Caused him to feel short of breath. No nausea or vomiting. No syncope. Denies palpitations. States he has been under increased financial stress. Workup in the ER with no ST changes on EKG. Troponin initially unremarkable. Given his high risk chest pain and planned heart cath in a few days, medicine was consulted to admit for monitoring on telemetry and reevaluation in the morning. Patient does admit to some bloating , denies any constipation diarrhea melena hematochezia hematemesis or hemoptysis, denies any urinary type symptomatology, patient is a current everyday tobacco user, occasional alcohol use, frequent marijuana user. Other past medical history consistent with T2DM, CAD status post 10 stent placements, on dual antiplatelet therapy, GERD, MDD, EMILY, HFpEF, COPD, hyperlipidemia, hypertension, BPH, morbid obesity, lymphedema, degenerative disc disease lumbar spine, IBS. Initial triage vitals are notable for bradycardia otherwise unremarkable. Has had 3 prior caths in the past 18 months. Stents placed on the first of those 3. Last we have identified vessels not amenable to intervention due to location or size. Hospital Course Hospital Course Hospital Course: Mr. Maharaj is a 65-year-old male with a primary medical history of CAD, coronary artery stenting, tobacco use, GERD, MDD, HFpEF, chronic respiratory failure, type 2 diabetes, pulmonary emphysema, hypertension, hyperlipidemia, BPH, morbid obesity, chronic pain, COPD, bipolar, anxiety. He presented to the emergency department yesterday with complaints of chest pain/pressure. He states that he has been under increased financial stress lately and his recently. He has had multiple cardiac workups with 3 prior left heart cath in the past 18 months. The ER physician requested admission from hospital medicine due to unstable angina, hospital medicine accepted the patient for observation and monitoring. Cardiology was consulted and plans for an [facility] were made. Patient was placed on continuous cardiac telemetry. Serial troponins less than 0.01, no acute findings on chest x-ray. Cardiology was consulted and patient was taken for left heart cath. Left heart cath revealed mild diffuse coronary artery disease, patent stents, normal LV systolic function, normal LV end-diastolic pressures. Recommendations were made to continue with aggressive medical therapy, and follow-up with cardiology in 1 to 2 weeks outpatient. Cardiology recommends continuing aspirin 81 mg daily, Norvasc 10 mg daily, Plavix 75 mg daily, Lasix 40 mg twice daily, Imdur 90 mg twice daily, metoprolol 200 mg twice daily, Aldactone 50 mg daily, and ranolazine 1000 mg twice daily. Patient tolerated left heart cath without issues, right radial site clean dry and intact. Patient remained hemodynamically stable. It is notable patient had low blood pressures on admission, 90s/60s. This may be contributing to his shortness of breath and fatigue. This should be followed up with cardiology at outpatient appointment. Patient should continue home medications of atorvastatin 80 mg at bedtime, cariprazine 3 mg daily, vitamin D daily, dutasteride 0.5 mg daily, folic acid 1 mg daily, gabapentin 600 mg twice daily, DuoNebs every 6 hours as needed, albuterol Hailer every 4 hours as needed, lamotrigine 175 mg twice daily, Creon 4 times daily with meals as needed, methocarbamol 750 mg daily, methotrexate 20 mg weekly, multivitamin daily, pantoprazole 40 mg daily, MiraLAX daily, potassium 10 mEq daily, tamsulosin 0.4 mg at bedtime, trazodone 150 mg at bedtime as needed for sleep, Chantix 1 mg twice daily. Total time spent on discharge 32 minutes in counseling, documentation, chart review, and direct care with patient. Exam Data for Last 24 hours Vital signs and Labs for Last 24 Hours: Temp Pulse Resp BP Pulse Ox O2 Del Method 97.8 F 64 18 131/76 92 L Room Air 05/21/25 11:49 05/21/25 14:45 05/21/25 14:45 05/21/25 14:45 05/21/25 14:45 05/21/25 14:45 Laboratory Results - last 24 hr 05/20/25 14:21: Troponin I < 0.01 05/20/25 20:00: Troponin I < 0.01 05/21/25 05:18: WBC 9.6, RBC 3.53 L, Hgb 13.0 L, Hct 38.1 L, MCV 107.9 H, MCH 36.8 H, MCHC 34.1, RDW 14.3, Plt Count 294, MPV 8.7, Neut % (Auto) 61.3, Lymph % (Auto) 21.8, Towns % (Auto) 12.1 H, Eos % (Auto) 2.7, Baso % (Auto) 0.6, Neut # (Auto) 5.9, Lymph # (Auto) 2.1, Towns # (Auto) 1.2 H, Eos # (Auto) 0.3, Baso # (Auto) 0.1, Sodium 135 L, Potassium 3.7, Chloride 101, Carbon Dioxide 29, Anion Gap 8.7, BUN 16, Creatinine 0.90, Estimated Creat Clear 128, Estimated GFR 84, Est GFR ( Amer) 102, Glucose 88 D, Calcium 8.6, Magnesium 2.0, Total Bilirubin 0.4, AST 26, ALT 21, Alkaline Phosphatase 92, Total Protein 6.3, Albumin 3.7, Globulin 2.6, Albumin/Globulin Ratio 1.4 I & O for Last 24 hours: Intake & Output 05/18/25 05/19/25 05/20/25 05/21/25 23:59 23:59 23:59 23:59 Intake Total 480 / 720 240 / 240 Output Total 0 / 800 1999 / 1999 Balance 480 / -80 -1760 / -1760 Weight 127.119 kg 126.734 kg Constitutional Constitutional: no acute distress, morbidly obese, chronically ill appearing and cooperative *Routine HEENT Exam Head: Present normocephalic Eye: Present EOMI and PERRL ENT: Present mucous membranes moist *Routine Neck Exam Neck: Present supple; Absent lymphadenopathy *Routine Respiratory Exam Respiratory: Present CTA bilaterally, normal respiratory effort and able to speak in complete sentences; Absent wheezes or crackles *Routine Cardiovascular Exam Cardiovascular: Present RRR, Normal S1 and Normal S2; Absent murmur *Routine Abdominal Exam Abdominal: Present soft and normoactive bowel sounds; Absent tenderness or distended *Routine Rectal Exam Patient deferred: visual exam *Routine Exam Patient deferred: penile exam *Routine Extremities Exam Extremities: Present edema (1+ below the knee); Absent cyanosis or clubbing *Routine Skin Exam Skin: Present warm; Absent rash *Routine Neurological Exam Neurological: Present alert, oriented X3 and moving all extremities; Absent altered mental status Results Data Completed and Pending Labs on day of discharge: Labs from last 24 hours 05/21/25 05/20/25 05/20/25 05:18 20:00 14:21 WBC 9.6 RBC 3.53 L Hgb 13.0 L Hct 38.1 L MCV 107.9 H MCH 36.8 H MCHC 34.1 RDW 14.3 Plt Count 294 MPV 8.7 Neut % (Auto) 61.3 Lymph % (Auto) 21.8 Towns % (Auto) 12.1 H Eos % (Auto) 2.7 Baso % (Auto) 0.6 Neut # (Auto) 5.9 Lymph # (Auto) 2.1 Towns # (Auto) 1.2 H Eos # (Auto) 0.3 Baso # (Auto) 0.1 Sodium 135 L Potassium 3.7 Chloride 101 Carbon Dioxide 29 Anion Gap 8.7 BUN 16 Creatinine 0.90 Estimated Creat Clear 128 Estimated GFR 84 Est GFR ( Amer) 102 Glucose 88 D Calcium 8.6 Magnesium 2.0 Total Bilirubin 0.4 AST 26 ALT 21 Alkaline Phosphatase 92 Troponin I < 0.01 < 0.01 Total Protein 6.3 Albumin 3.7 Globulin 2.6 Albumin/Globulin Ratio 1.4 DS: Diagnosis Discharge Diagnosis (1) CAD (coronary artery disease): Status: Chronic Code(s): I25.10 - Atherosclerotic heart disease of tribe coronary artery without angina pectoris Qualifiers: Associated angina: with other forms of angina Coronary Disease- Associated Artery/Lesion type: tribe artery [place] vs. transplanted heart: tribe heart Qualified Code(s): I25.118 - Atherosclerotic heart disease of tribe coronary artery with other forms of angina pectoris (2) Angina pectoris, unstable: Status: Acute Code(s): I20.0 - Unstable angina Meds Home Medications and Allergies Home Medications ?Medication ?Instructions ?Recorded ?Confirmed ?Type albuterol sulfate 90 mcg/actuation 2 puff inhalation Q IDP PRN 10/27/18 05/20/25 History aerosol inhaler Shortness Of Breath 25 days #9 grams tamsulosin 0.4 mg capsule 0.4 mg PO HS 90 days #90 cap s 10/27/18 05/20/25 History folic acid 1 mg tablet 1 mg PO DAILY 10/26/2205/20 History methotrexate sodium 2.5 mg tablet 20 mg PO WEEKLY 10/0105/20/25 History atorvastatin 80 mg tablet 80 mg PO HS 03/12/24 5 History nitroglycerin 0.4 mg sublingual 0.4 mg sublingual Q5MI BALLET TEACHER PRN Chest 03/12/24 05/20/25 History tablet Pain potassium chloride 10 mEq 10 meq PO DAILY 03/12/24 History tablet,extended release cholecalciferol (vitamin D3) 125 5,000 unit PO DAILY 0 04/17/24 05/20/25 History mcg (5,000 unit) tablet (Vitamin D3) dutasteride 0.5 mg capsule 0.5 mg PO DAILY 04/17/24 History lamotrigine 150 mg tablet 150 mg PO BID 04/17/2405/20 History vit C 250 mg-vit E 90 mg-zinc 40 1 cap PO BID 04/17/24 05/20/25 History mg-copper 1 [id number] capsule (PreserVision AREDS-2) aspirin 81 mg tablet,delayed 81 mg PO DAILY 07/13/24 1 History release furosemide 40 mg tablet 80 mg PO DAILY 07/13/2405/02 History ipratropium 0.5 mg-albuterol 3 mg 3 ml inhalation Q6H PRN shortness 07/15/24 05/20/25 Rx (2.5 mg base)/3 mL nebulization of breath or wheezing 30 days #180 soln mL clopidogrel 75 mg tablet See Rx Instructions .Route 0 10/16/24 05/20/25 Rx .COMPLEX #90 tabs gabapentin 600 mg tablet 600 mg PO BID 10/23/2405/20 History ranolazine 1,000 mg See Rx Instructions .Route 0 11/20/24 05/20/25 Rx tablet,extended release,12 hr .COMPLEX #180 tabs trazodone 100 mg tablet 100 - 150 mg (1 - 1.5 x 100 mg) PO 12/15/24 05/20/25 Rx DAILY #45 tabs amlodipine 10 mg tablet 10 mg PO DAILY 12/19/2405/02 History spironolactone 50 mg tablet 50 mg PO DAILY #90 tabs 05/20/25 Rx pantoprazole 40 mg tablet,delayed See Rx Instructions .Route 01/08/25 05/20/25 Rx release .COMPLEX #90 tabs lamotrigine 25 mg tablet (Lamictal) 25 mg PO BID #60 t abs 03/11/25 05/20/25 Rx varenicline tartrate 1 mg tablet 1 mg PO BID #56 tabs 03/22/25 05/20/25 Rx (Chantix Continuing Month Box) mispsr-[id number]-[id number] 1 cap PO QID 03/26/25 History (pork)36,000-114,000-180k unit capsule,del rel (Creon) methylcellulose (with sugar) oral 1 tbsp PO DAILY 03/0305/20/25 History powder (Citrucel (sucrose) oral powder) multivitamin 1 tab PO DAILY 03/26/2505/02 History polyethylene glycol 3350 17 17 g PO DAILY 03/26/25 History gram/dose oral powder (Miralax) budesonide-formoterol HFA 160 2 puff inhalation BID 90 days 03/29/25 05/20/25 Rx mcg-4.5 mcg/actuation aerosol #10.2 grams inhaler methocarbamol 750 mg tablet See Rx Instructions .Route 04/04/25 05/20/25 Rx .COMPLEX #90 tabs isosorbide mononitrate 60 mg See Rx Instructions .Rout e 04/19/25 05/20/25 Rx tablet,extended release 24 hr .COMPLEX #90 tabs cariprazine 3 mg capsule (Vraylar) 3 mg PO DAILY #30 c aps 04/30/25 05/20/25 Rx metoprolol succinate 100 mg 200 mg (2 x 100 mg) PO BID 30 days 05/01/25 05/20/25 Rx tablet,extended release 24 hr #120 tabs New Prescriptions to Start Prescriptions: Allergies Allergy/AdvReac Type Severity Reaction Status Date / Time nickel (NICKEL) Allergy Unknown I-RASH Verified 05/01/25 13:15 quetiapine (From SEROQUEL) Allergy Unknown I-RASH Verified 05/01/25 13:15 mirtazapine AdvReac Intermediate Hallucinati Verified 05/01/25 13:15 ng NSAIDS (Non-Steroidal AdvReac Other Verified 05/01/25 13:15 Anti-Inflamma Discharge Plan Disposition Patient Disposition: Home, Self-Care Condition: Fair Follow up Plan Follow up with: Rafaela Sanders APRN [Nurse Practitioner, Cardiology] - 05/28/25 11:00 am Jennifer Newton APRN [Primary Care Provider, Medical] - 05/28/25 12:00 pm Prescriptions/Medication Reconciliation: Continued gabapentin 600 mg tablet 600 mg PO BID Patient Comments: TAKE ONE TABLET BY MOUTH THREE TIMES DAILY MAY CAUSE DROWSINESS multivitamin Tablet 1 tab PO DAILY polyethylene glycol 3350 [Miralax] 17 gram/dose powder 17 g PO DAILY Citrucel (sucrose) Powder 1 tbsp PO DAILY Creon 36,000-114,000- 180,000 unit capsule,delayed release(DR/EC) 1 cap PO QID Rx Instructions: administer with meals and/or snacks varenicline tartrate [Chantix Continuing Month Box] 1 mg tablet 1 mg PO BID Qty: 56 4RF metoprolol succinate 100 mg tablet extended release 24 hr 200 mg PO BID 30 Days Qty: 120 2RF tamsulosin 0.4 mg capsule 0.4 mg PO HS 90 Days Qty: 90 albuterol sulfate 90 mcg/actuation HFA aerosol inhaler 2 puff INHALATION QIDP PRN (Reason: Shortness Of Breath) 25 Days Qty: 9 Patient Comments: INHALE 2 PUFFS BY MOUTH FOUR TIMES DAILY * SHAKE WELL BEFORE USE * methotrexate sodium 2.5 mg tablet 20 mg PO WEEKLY Rx Instructions: PATIENT TAKES 8 TABLETS BY MOUTH ONCE WEEKLY ON WEDNESDAY folic acid 1 mg tablet 1 mg PO DAILY Patient Comments: TAKE ONE TABLET BY MOUTH EVERY DAY EXCEPT FOR THE DAY you take methotrexate Rx Instructions: Patient takes 6 days a week. trazodone 100 mg tablet 100 - 150 mg PO DAILY Qty: 45 2RF Vraylar 3 mg capsule 3 mg PO DAILY Qty: 30 2RF Rx Instructions: DX Code: F31.81 clopidogrel 75 mg tablet See Rx Instructions .ROUTE .COMPLEX Qty: 90 3RF Dose Instruction: TAKE ONE TABLET BY MOUTH EVERY DAY Rx Instructions: TAKE ONE TABLET BY MOUTH EVERY DAY ranolazine 1,000 mg tablet extended release 12 hr See Rx Instructions .ROUTE .COMPLEX Qty: 180 3RF Dose Instruction: TAKE ONE TABLET BY MOUTH TWICE DAILY Rx Instructions: TAKE ONE TABLET BY MOUTH TWICE DAILY spironolactone 50 mg tablet 50 mg PO DAILY Qty: 90 1RF pantoprazole 40 mg tablet,delayed release (DR/EC) See Rx Instructions .ROUTE .COMPLEX Qty: 90 3RF Dose Instruction: TAKE ONE TABLET BY MOUTH EVERY DAY Rx Instructions: TAKE ONE TABLET BY MOUTH EVERY DAY lamotrigine [Lamictal] 25 mg tablet 25 mg PO BID Qty: 60 2RF Rx Instructions: Take with Lamictal 150 mg bid. If you develop a rash, stop the medication and call the clinic. budesonide-formoterol 160-4.5 mcg/actuation HFA aerosol inhaler 2 puff inhalation BID 90 Days Qty: 10.2 2RF methocarbamol 750 mg tablet See Rx Instructions .ROUTE .COMPLEX Qty: 90 2RF Dose Instruction: TAKE ONE TABLET BY MOUTH THREE TIMES DAILY MAY CAUSE DROWSINESS Rx Instructions: TAKE ONE TABLET BY MOUTH THREE TIMES DAILY MAY CAUSE DROWSINESS isosorbide mononitrate 60 mg tablet extended release 24 hr See Rx Instructions .ROUTE .COMPLEX Qty: 90 2RF Dose Instruction: TAKE 1 AND 1/2 TABLET BY MOUTH TWICE DAILY Rx Instructions: TAKE 1 AND 1/2 TABLET BY MOUTH TWICE DAILY atorvastatin 80 mg tablet 80 mg PO HS potassium chloride 10 mEq tablet extended release 10 meq PO DAILY Patient Comments: TAKE ONE TABLET BY MOUTH EVERY DAY nitroglycerin 0.4 mg tablet, sublingual 0.4 mg sublingual Q5MINP PRN (Reason: Chest Pain) dutasteride 0.5 mg capsule 0.5 mg PO DAILY Patient Comments: TAKE ONE CAPSULE BY MOUTH EVERY DAY cholecalciferol (vitamin D3) [Vitamin D3] 125 mcg (5,000 unit) Tablet 5,000 unit PO DAILY PreserVision AREDS-2 250-90-40-1 mg Capsule 1 cap PO BID lamotrigine 150 mg tablet 150 mg PO BID Patient Comments: TAKE ONE TABLET BY MOUTH TWICE DAILY amlodipine 10 mg tablet 10 mg PO DAILY Rx Instructions: TAKE ONE TABLET BY MOUTH EVERY DAY furosemide 40 mg tablet 80 mg PO DAILY Rx Instructions: TAKE TWO TABLETS BY MOUTH EVERY DAY aspirin 81 mg Tablet,Delayed Release (Dr/Ec) 81 mg PO DAILY ipratropium-albuterol 0.5 mg-3 mg(2.5 mg base)/3 mL Solution For Nebulization 3 ml inhalation Q6H PRN (Reason: shortness of breath or wheezing) 30 Days Qty: 180 0RF Problem Reconciliation Problems Reviewed?: Yes Patient Discharge Instructions ACTIVITY: Ambulate as tolerated and No heavy lifting DIET: cardiac Patient Instructions: DI for Cardiac Catheterization, DI for Surgical Site Infection Print Language: Macedonian Providers Primary Care Provider: Jennifer Newton Admit Provider: Owen Lorenz Attending Provider: Owen Lorenz
--- NOTE | 2025-05-22 10:07 | SW/DCPLANNER ---
Spoke with patient on the phone. Patient stated that he is doing good. Patient stated that he is aware of his upcoming appointments. Patient stated that he was left on his medicine that he has been on. Patient stated that he has no concerns or questions at this time. Donte Yanez
== END 2025-05-21 17:41 | disposition home or self-care (01) ==
LOC: ER 16:33 → 2ND 16:39
PROVIDERS: Internal Medicine; Physician Assistant; Admitting Provider Internal Medicine Adolescent Medicine; Emergency Provider Student in an Organized Health Care Education/Training Program; PCP Nurse Practitioner Family; Visit Provider Internal Medicine Adolescent Medicine
PROC: 4A023N7 Measurement of Cardiac Sampling and Pressure, Left Heart, Percutaneous Approach (ICD-10-PCS; CPT 93452; principal; 2025-05-21 14:30)
DX: I25.118 Atherosclerotic heart disease of native coronary artery with other forms of angina pectoris (principal); M54.9 Dorsalgia, unspecified; G89.29 Other chronic pain; F31.81 Bipolar II disorder; M47.816 Spondylosis without myelopathy or radiculopathy, lumbar region; E66.01 Morbid (severe) obesity due to excess calories; N40.0 Benign prostatic hyperplasia without lower urinary tract symptoms; I11.0 Hypertensive heart disease with heart failure; I50.30 Unspecified diastolic (congestive) heart failure; E78.2 Mixed hyperlipidemia; J43.8 Other emphysema; K21.9 Gastro-esophageal reflux disease without esophagitis; Z68.41 Body mass index [BMI] 40.0-44.9, adult; F17.210 Nicotine dependence, cigarettes, uncomplicated; Z79.02 Long term (current) use of antithrombotics/antiplatelets; Z79.82 Long term (current) use of aspirin; Z79.899 Other long term (current) drug therapy; F41.1 Generalized anxiety disorder; Z88.6 Allergy status to analgesic agent; Z88.8 Allergy status to other drugs, medicaments and biological substances; Z91.048 Other nonmedicinal substance allergy status
CPT/HCPCS: 36415; 71045; 80053; 83690; 83735; 83880; 84484; 85025; 85378; 85610; 93005; 93458; 94640; 96372; 99152; 99285; C1725; C1760; C1769; G0378; J1200; J1644; J1650; J2003; J2250; J2270; J2405; J3010; J7040; Q9967

== ENCOUNTER 2025-05-29 13:03 | Outpatient (CLI) | payer MEDICARE, SELFPAY ==
--- OUTSIDE RECORDS SUMMARY | 2025-05-14 14:30 | XMS_ITS | Encounter Summary ---
Author Organization [facility] Address [address] [place] [address] Care Team Providers Care Senior Windows Systems Administrator Name Role Phone Jennifer Newton APRN Primary Care Provid er Reason for Visit * Reason Comments Seropositive rheumatoid arthritis Encounter Details Date Type Department Care Team (Latest Contact Info) Description 05/14/2025 2:30 PM EDT Office Visit [facility] RHEUMATOLOGY [address] [phone] Valeria Machuca APRN [address] [phone] Seropositive rheumatoid arthritis (Primary Dx); Immunodeficiency due to treatment with immunosuppressive medication; High risk medication use; Paranoid schizophrenia; Primary osteoarthritis involving multiple joints; Stage I pressure ulcer of left buttock Social History Tobacco Use Types Packs/Day Years Used Date Smoking Tobacco: Every Day Cigarettes 1 53.8 Started: 1971 Passive Smoke Exposure: Past Smokeless Tobacco: Current Tobacco Cessation:Ready to Q [...] AM EST documented as of this encounter Last Filed Vital Signs Vital Sign Reading Time Taken Comments Blood Pressure 110/72 05/14/2025 2:45 PM EDT Pulse 89 05/14/2025 2:45 PM EDT Temperature 36.3 C (97.3 F) 05/14/2025 2:45 PM EDT Respiratory Rate - - Oxygen Saturation - - Inhaled Oxygen Concentration - - Weight 129 kg (284 lb) 05/14/2025 2:45 PM EDT Height 177.8 cm (5' 10 ) 05/14/2025 2:45 PM EDT Body Mass Index 40.75 05/14/2025 2:45 PM EDT documented in this encounter Progress Notes * Valeria Machuca APRN - 05/14/2025 2:30 PM EDTAssociated Problem(s): Seropositive rheumatoid arthritis * Sibling with RA * 07/07/22: CCP normal, CRP 2.55 (<0.50), ESR 56 (<21), IgA RF normal, IgG RF 23.5 (<20.0),IgM RF 41.7 (<20.0), Uric acid 7.7, Glucose 106 , CMP ok otherwise, CBC was fine * 04/03/22: RAMONA negative, Thyroid peroxidase antibody normal, C3 and C4 normal, DS DNA normal, Ribosomal P normal, SOLE ROUNDING MACHINE OPERATOR normal, SCL 70 normal, Morrow normal, SSA and SSB Normal * Medications/treatments/interventions tried include: Tylenol, he saw a spine surgeon, physical therapy, cervical spine surgery, aspirin, gabapentin, ibuprofen, naproxen, MTX/folic acid 1. Labs today-new order provided 2. Continue MTX 20 mg/week and folic acid. Refill today 3. Follow up in 3-4 months 4. He was able to start his Humira about 3 months ago and has seemed to have some improvement with this. 5. Today he reports that his knees have improved. 6. Feet and ankles are bothersome still. 7. His prognosis seems guarded. 8. He has chronic pain 9. Labs reviewed 01/12/25 10. He will hold Humira and MTX this week as he has a heart cath upcoming May 23. 11. Dry patch/rash to left elbow-recommend following up with dermatology for further investigation * Valeria Machuca APRN - 05/14/2025 2:30 PM EDTAssociated Problem(s): High risk medication use * MTX 20 mg PO once/week for RA * Started 07/15/22 1. CBC and CMP every 8-12 weeks to monitor for medication toxicity. 2. Take folate supplements daily. 3. No recent serious infections. 4. Refill today Stage I pressure ulcer of left buttock He got rid of his donut that he was sitting on at home and this has since improved. * Valeria Machuca APRN - 05/14/2025 2:30 PM EDT Office Follow Up Date: 05/14/2025 Patient Name: Abe Maharaj Date of : 1960 Referring Physician: No ref. provider found Chief Complaint Patient presents with Seropositive rheumatoid arthritis History of Present Illness: Abe Maharaj is a 65 y.o. male who is here today for follow up. He established care with us as of 07/15/22. We have prescribed him MTX/folic acid and Humira. He started Humira around January 2025 He rates his pain as 4/10 in severity. He has 2 hour/day of morning stiffness. He reports that Humira has been helpful for his knees but not his feet and ankles. He has been recently told that he has neuropathy in his feet Patient reports no injection site reactions. No reported illnesses or infections since previous visit He has a planned heart catheterization upcoming due to chest pains. He has had CT, US, echo. He is having some groin pain that PCP has done imaging for with no clear cause. He does have known back pain and is followed by pain management and he is getting injections in his back. He has a rash to his left elbow that he has been using steroids on. He does have lymphedema and He was previously seen at a lymphedema clinic. No current complicationsrelated to this. .. He is asking today about a patch of his skin that has been dry and itching for the last couple of months. He has been prescribed triamcinolone cream which did not help and then he was prescribed betamethasone cream which has seemed to help him some. 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 He is followed by Aasd Romo reports he does not feel like the Vraylar is working well for him. He missed his previous appointment and has reached out to reschedule but has not heard back from clinic. He does report continued suicidal ideations without a current plan or strategy. He reports that he has a good support system and is not in any immediate danger from himself. Subjective Review of Systems HENT: Positive for congestion, drooling, postnasal drip, rhinorrhea, sinus pressure and tinnitus. Dry mouth Respiratory: Positive for apnea, cough, shortness of breath, wheezing and stridor. Cardiovascular: Positive for chest pain, palpitations and leg swelling. Gastrointestinal: Positive for vomiting and GERD. Endocrine: Positive for polydipsia. Musculoskeletal: Positive for arthralgias, back pain, gait problem, joint swelling, myalgias, neck pain and neck stiffness. Skin: Positive for dry skin and bruise. Nail Changes Allergic/Immunologic: Positive for environmental allergies. Neurological: Positive for dizziness, syncope, weakness, light-headedness, numbness, memory problemand confusion. Hematological: Bruises/bleeds easily. Psychiatric/Behavioral: Positive for agitation, decreased concentration, hallucinations, sleep disturbance, suicidal ideas, depressed mood and stress. The patient is nervous/anxious. Current Outpatient Medications: Adalimumab (Humira, 2 Pen,) 40 MG/0.4ML Auto-injector Kit, Inject 1 Pen under the skin into the appropriate area as directed Every 14 (Fourteen) Days., Disp: 2 each, Rfl: 5 albuterol sulfate HFA 108 (90 Base) MCG/ACT inhaler, Inhale 2 puffs Every 4 (Four) Hours As Needed for Wheezing., Disp: , Rfl: amLODIPine (NORVASC) 5 MG tablet, Take 1 tablet by mouth Daily., Disp: , Rfl: atorvastatin (LIPITOR) 40 MG tablet, Take 1 tablet by mouth Daily., Disp: , Rfl: betamethasone dipropionate (DIPROSONE) 0.05 % cream, apply TO RASH ON LEFT elbow AREA TWICE DAILY FOR 3 WEEKS THEN take 1 WEEK break. REPEAT NEEDED. DO not USE ON face, groin, OR underarms, Disp: , Rfl: budesonide-formoterol (SYMBICORT) 160-4.5 MCG/ACT inhaler, Inhale 2 puffs 2 (Two) Times a Day., Disp: , Rfl: Cariprazine HCl (Vraylar) 3 MG capsule capsule, Take by mouth Daily., Disp: , Rfl: Cholecalciferol 125 MCG (5000 UT) tablet, Take 1 tablet by mouth Daily., Disp: , Rfl: clopidogrel (PLAVIX) 75 MG tablet, Take 1 tablet by mouth Daily., Disp: , Rfl: dutasteride (AVODART) 0.5 MG capsule, Take 1 capsule by mouth Daily., Disp: , Rfl: folic acid (FOLVITE) 1 MG tablet, TAKE TWO TABLETS BY MOUTH EVERY DAY EXCEPT THE DAY you take mETHOTREXATE, Disp: 30 tablet, Rfl: 5 furosemide (LASIX) 40 MG tablet, Take 1 tablet by mouth 2 (Two) Times a Day., Disp: , Rfl: gabapentin (NEURONTIN) 300 MG capsule, Take 1 capsule by mouth 3 (Three) Times a Day., Disp: , Rfl: gabapentin (NEURONTIN) 600 MG tablet, TAKE ONE TABLET BY MOUTH THREE TIMES DAILY MAY CAUSE DROWSINESS, Disp: , Rfl: ipratropium-albuterol (DUO-NEB) 0.5-2.5 mg/3 ml nebulizer, INHALE THE CONTENTS OF 1 VIAL VIA NEBULIZER BY MOUTH EVERY 6 HOURS NEEDED FOR SHORTNESS OF BREATH OR wheezing, Disp: , Rfl: isosorbide mononitrate (IMDUR) 60 MG 24 hr tablet, Take 1 tablet by mouth Daily. (Patient taking differently: Take 1.5 tablets by mouth Daily.), Disp: , Rfl: lamoTRIgine (LaMICtal) 100 MG tablet, Take 1 tablet by mouth 2 (Two) Times a Day. (Patient taking differently: Take 1.5 tablets by mouth 2 (Two) Times a Day.), Disp: , Rfl: lamoTRIgine (LaMICtal) 25 MG tablet, Take 1 tablet by mouth 2 (Two) Times a Day., Disp: , Rfl: methocarbamol (ROBAXIN) 750 MG tablet, Take 1 tablet by mouth 3 times a day., Disp: , Rfl: methotrexate 2.5 MG tablet, Take 8 tablets by mouth 1 (One) Time Per Week., Disp: 40 tablet, Rfl: 3 metoprolol succinate XL (TOPROL-XL) 50 MG 24 hr tablet, Take 0.5 tablets by mouth Daily. (Patient taking differently: Take 2 tablets by mouth 2 (Two) Times a Day.), Disp: , Rfl: mirtazapine (REMERON) 15 MG tablet, Take 0.5-1 tablets by mouth Daily., Disp: , Rfl: multivitamin with minerals (One-A-Day Mens 50+) tablet tablet, Take 1 tablet by mouth Daily. One-A-Day Men's 50 Plus 400 mcg-20 mcg-370 mcg tablet Vazalore 81 mg capsule take 1 capsule by oral route every day, Disp: , Rfl: nitroglycerin (NITROSTAT) 0.4 MG SL tablet, Place 1 tablet under the tongue Every 5 (Five) Minutes As Needed for Chest Pain. Take no more than 3 doses in 15 minutes., Disp: , Rfl: ondansetron (ZOFRAN) 4 MG tablet, Take 1 tablet by mouth 2 (Two) Times a Day. place 1 tablet by translingual route 2 times every day on top of the tongue where they will dissolve, then swallow, Disp:, Rfl: pantoprazole (PROTONIX) 40 MG EC tablet, Take 1 tablet by mouth Daily., Disp: , Rfl: potassium chloride (KLOR-CON M10) 10 MEQ CR tablet, Take 1 tablet by mouth Daily., Disp: , Rfl: potassium chloride 10 MEQ CR tablet, Take 1 tablet by mouth Daily., Disp: , Rfl: ranolazine (RANEXA) 1000 MG 12 hr tablet, Take by mouth Every 12 (Twelve) Hours., Disp: , Rfl: spironolactone (ALDACTONE) 50 MG tablet, Take 0.5 tablets by mouth Daily. (Patient taking differently: Take 2 tablets by mouth Daily.), Disp: , Rfl: tamsulosin (FLOMAX) 0.4 MG capsule 24 hr capsule, Take 1 capsule by mouth Daily. 1/2 FOLLOWING THE SAME MEAL EACH DAY, Disp: , Rfl: traZODone (DESYREL) 100 MG tablet, Take 1 tablet by mouth every night at bedtime. (Patient taking differently: Take 1.5 tablets by mouth every night at bedtime.), Disp: , Rfl: triamcinolone (KENALOG) 0.1 % cream, APPLY TOPICALLY TO THE AFFECTED AREA(S) TWICE DAILY, Disp: , Rfl: varenicline (CHANTIX) 1 MG tablet, Take 1 tablet by mouth Every 12 (Twelve) Hours., Disp: , Rfl: Varenicline Tartrate, Starter, 0.5 MG X 11 & 1 MG X 42 tablet therapy pack, take according to package instructions, Disp: , Rfl: Allergies Allergen Reactions Aripiprazole Unknown (See Comments) Ibuprofen Other (See Comments) and Unknown (See Comments) psychosis Nickel Rash Nsaids Palpitations Quetiapine Rash I have reviewed and updated the patient's chief complaint, history of present illness, review of systems, past medical history, surgical history, family history, social history, medications and allergy list as appropriate. Objective Vitals: 05/14/25 1445 BP: 110/72 BP Location: Left arm Patient Position: Sitting Cuff Size: Adult Pulse: 89 Temp: 97.3 ??F (36.3 ??C) Weight: 129 kg (284 lb) Height: 177.8 cm (70 ) PainSc: 4 PainLoc: Generalized Body mass index is 40.75 kg/m??. Physical Exam Constitutional: Appearance: Normal appearance. HENT: Head: Normocephalic. Eyes: Pupils: Pupils are equal, round, and reactive to light. Cardiovascular: Rate and Rhythm: Normal rate and regular rhythm. Heart sounds: Normal heart sounds. Pulmonary: Effort: Pulmonary effort is normal. Breath sounds: Normal breath sounds. Abdominal: Palpations: Abdomen is soft. Musculoskeletal: Cervical back: Normal range of motion. Comments: General Swelling bilateral lower extremities-lymphedema- No synovitis Squaring bilateral CMC's Skin: General: Skin is warm and dry. Comments: Dry patch to left elbow with reported uticaria, no flaking or plaques noticed-no erythemanoted Scattered raised moles along his shoulders and cervical spine Small bruise to the abdomen from previous injection Neurological: Mental Status: He is alert. Psychiatric: Mood and Affect: Mood normal. Assessment / Plan Assessment & Plan Seropositive rheumatoid arthritis * Sibling with RA * 07/07/22: CCP normal, CRP 2.55 (<0.50), ESR 56 (<21), IgA RF normal, IgG RF 23.5 (<20.0),IgM RF 41.7 (<20.0), Uric acid 7.7, Glucose 106 , CMP ok otherwise, CBC was fine * 04/03/22: RAMONA negative, Thyroid peroxidase antibody normal, C3 and C4 normal, DS DNA normal, Ribosomal P normal, SOLE ROUNDING MACHINE OPERATOR normal, SCL 70 normal, Morrow normal, SSA and SSB Normal * Medications/treatments/interventions tried include: Tylenol, he saw a spine surgeon, physical therapy, cervical spine surgery, aspirin, gabapentin, ibuprofen, naproxen, MTX/folic acid 1. Labs today-new order provided 2. Continue MTX 20 mg/week and folic acid. Refill today 3. Follow up in 3-4 months 4. He was able to start his Humira about 3 months ago and has seemed to have some improvement with this. 5. Today he reports that his knees have improved. 6. Feet and ankles are bothersome still. 7. His prognosis seems guarded. 8. He has chronic pain 9. Labs reviewed 01/12/25 10. He will hold Humira and MTX this week as he has a heart cath upcoming May 23. 11. Dry patch/rash to left elbow-recommend following up with dermatology for further investigation Immunodeficiency due to treatment with immunosuppressive medication *Humira not yet started as he has not been approved for PAP. *QTB and hepatitis panel negative 09/15/24 Reviewed biologic medication risk and benefit along with side effect profile Patient knows to hold medication if he develops any type of illness/infection High risk medication use * MTX 20 mg PO once/week for RA * Started 07/15/22 1. CBC and CMP every 8-12 weeks to monitor for medication toxicity. 2. Take folate supplements daily. 3. No recent serious infections. 4. Refill today Stage I pressure ulcer of left buttock He got rid of his donut that he was sitting on at home and this has since improved. Paranoid schizophrenia He sees [facility] for Behavioral health. He missed his last appointment with them Today he reports that he has been switched to Vraylar within the last few months and he does not feel that it is helping He reports that he has continued to have hallucinations and suicidal ideations. He has no current plan of suicide. He feels safe today, He denies that he needs urgently seen, He has a good support system he reports. He will reach out to . TIME SPENT: I spent 40 minutes caring for the patient on this date of service. This time includes time spent by me in the following activities: Preparing for the visit, obtaining records, reviewing/ordering tests and independently reviewing results, performing a medically appropriate history/exam, counseling and educating the patient/family/caregiver, ordering medications, tests, or procedures, and documenting information in the medical record. I attest that a portion of the documentation was copied from a previous note but is still current and accurate. Updates have been made as appropriate. Follow Up: Return in about 4 months (around 09/14/2025) for Sven Gonzales Lindsie APRN. Valeria Machuca APRN [facility] [place] documented in this encounter Plan of Treatment Upcoming Encounters Date Type Department Care Team (Late st Contact Info) Description 09/10/2025 3:00 PM EST Office Visit [facility] RHEUMATOLOGY [address] [phone] Valeria Machuca APRN 330 [facility] [address] [place] [address] 01/07/2026 3:45 PM EDT Office Visit [facility] RHEUMATOLOGY 330 [facility] [address] [place] [address] Damien Cosme DO 330 [facility] [address] [place], [place] [phone] documented as of this encounter Goals Goal Patient Goal Type Associated Problems Recent Progress Patient-Stated? Author Specialty Pharmacy General Goal General No Alvin Maier, PharmD Note: Reduce number of flares and pain score. documented as of this encounter Visit Diagnoses Diagnosis Seropositive rheumatoid arthritis- Primary Immunodeficiency due to treatment with immunosuppressive medication High risk medication use Paranoid schizophrenia Paranoid schizophrenia, unspecified condition Primary osteoarthritis involving multiple joints Stage I pressure ulcer of left buttock documented in this encounter Care Teams Senior Windows Systems Administrator Relationship Specialty Start Date End Date Jennifer Newton APRN [address] [facility] [address] [place] [address] PCP - General Family Medicine 03/20/24 documented as of this encounter
--- NOTE | 2025-05-29 13:10 | CT_ITS ---
FINAL REPORT TECHNIQUE: Axial images through the abdomen and pelvis were performed without contrast.This study was performed with techniques to keep radiation doses as low as reasonably achievable, (ALARA). Individualized dose reduction techniques using automated exposure control or adjustment of mA and/or kV according to the patient's size were employed. CLINICAL HISTORY: RT INGUINAL PAIN COMPARISON: 05/04/2024 FINDINGS: ABDOMEN: The lung bases are clear. The heart size is normal. Limited images of the liver are unremarkable. Gallbladder is present. The spleen is normal. No adrenal mass is identified. The aorta is normal in caliber. There is no significant free fluid or adenopathy. There is no nephrolithiasis. There is no hydronephrosis. PELVIS: The appendix is normal. The urinary bladder is moderately distended. There is no significant free fluid or adenopathy. There is no evidence of inguinal hernia. IMPRESSION: Unremarkable exam. Reviewed, Interpreted and Dictated by Quincy Tate MD Transcribed by Iliana Flores Authenticated and [facility]
--- OUTSIDE RECORDS SUMMARY | 2025-05-29 13:36 | XMS_ITS | Encounter Summary ---
Author Organization [facility] Address [address] [place] [address] Care Team Providers Care Calculator Operator Name Role Phone Jennifer Newton APRN [...] Description 09/10/2025 3:00 PM EST Office Visit [facility] RHEUMATOLOGY [address] [address] Valeria Machuca APRN 330 [facility] [address] [place] [address] 01/07/2026 3:45 PM EDT Office Visit [facility] 330 [facility] [address] [place] [address] Damien Cosme DO 330 [facility] 100 [place], [place] [id number] documented as of this encounter Goals Goal Patient Goal Type Associated Problems Recent Progress Patient-Stated? Author Specialty Pharmacy General Goal General No Alvin Maier, PharmD Note: Reduce number of flares and pain score. documented as of this encounter Visit Diagnoses Not on filedocumented in this encounter Care Teams Calculator Operator Relationship Specialty Start Date End Date Jennifer Newton APRN [address] [facility] [address] [place] [address] PCP - General Family Medicine 03/20/24 documented as of this encounter
--- OUTSIDE RECORDS SUMMARY | 2025-05-29 13:36 | XMS_ITS | Encounter Summary ---
Author Organization Healthcare Address [address] [place] [address] Care Team Providers Care Pretzel Cooker Name Role Phone Savage Reardon MD Primary Care Provider [phone] Clayton James MD Unavailable [phone] Reason for Visit * Reason Comments Med Refill Encounter Details Date Type Department Care Team (Late st Contact Info) Description 03/21/2025 Refill [place] [facility] [address] [place] [address] Clayton James MD [address] [place] [address] Degeneration of intervertebral disc of [...] documented as of this encounter Care Teams Pretzel Cooker Relationship Specialty Start Date End Date Savage Reardon MD [address] [place] [address] PCP - General 12/13/20 Clayton James MD [address] [place] [address] Surgeon Neurosurgery 09/22/24 documented as of this encounter
--- OUTSIDE RECORDS SUMMARY | 2025-05-29 13:36 | XMS_ITS | Encounter Summary ---
[facility] Address [address] [place] [address] Care Team Providers Care De Icer Installer Name Role Phone Jennifer Newton APRN Primary Care Provid er Encounter Details Date Type Department Care Team (Late st Contact Info) Description 05/14/2025 Telephone [facility] 330 [facility] 100 [place] [address] Valeria Machuca APRN 330 [facility] [address] [place] [address] Social History Tobacco Use Types [...] I faxed recent lab results request to [facility] Med Rec at [phone] per their VM instructions. -LARRY Chatman * Telephone Encounter - Valeria Machuca APRN - 05/14/2025 3:24 PM EDT Can we request labs from [facility]? documented in this encounter Plan of Treatment Upcoming Encounters Date Type Department Care Team (Late st Contact Info) Description 09/10/2025 3:00 PM EST Office Visit [facility] RHEUM[facility]OLOG[facility] [address] [phone] Valeria Machuca APRN [address] [address] 01/07/2026 3:45 PM EDT Office Visit [facility] RHE[facility] [address] [phone] Damien Cosme DO [address] [address] documented as of this encounter Goals Goal Patient Goal Type Associated Problems Recent Progress Patient-Stated? Author Specialty Pharmacy General Goal General No Alvin Maier, JonatanD Note: Reduce number of flares and pain score. documented as of this encounter Visit Diagnoses Not on filedocumented in this encounter Care Teams De Icer Installer Relationship Specialty Start Date End Date Jennifer Newton APRN [address] [facility] [address] [place] [address] PCP - General Family Medicine 03/20/24 documented as of this encounter
--- OUTSIDE RECORDS SUMMARY | 2025-05-29 13:37 | XMS_ITS | Continuity of Care Document ---
Author Organization [facility] Address [address] [facility] [address] [place] [address] Care Team Providers Care Plush Cutter Name Role Phone DEAN SAMUEL Primary Care [...] Urine: 148 ml Not Available [facility] [address] [facility] [address], [place], [address], 02/16/2025 10:20:55 03/27/2003/27/2025 BASIC METAB OLIC PANEL sodium 140 mmol/ L 136-14 5 Not Available [facility] ([facility]) [address] [facility], [place], [address], 03/27/2025 10:02:51 03/27/2003/27/2025 BASIC METAB OLIC PANEL potassium 4.2 mmol/ L 3.6-5. 0 Not Available [facility] ([facility]) [address] [facility], [place], [address], 03/27/2025 10:02:51 03/27/20 25 03/27/2025 BASIC METAB OLIC PANEL chloride 104 mmol/ L 98-107 Not Available [facility] ([facility]) [address] , [place], [address], 03/27/2025 10:02:51 03/27/20 25 03/27/2025 BASIC METAB OLIC PANEL carbon dioxide 24.7 mmol/ L 21.0-3 2.0 Not Available [facility] ([facility]) [address] , [place], [address], 03/27/2025 10:02:51 03/27/20 25 03/27/2025 BASIC METAB OLIC PANEL anion gap 15.5 Not Available [facility] ([facility]) [address] , [place], [address], 03/27/2025 10:02:51 03/27/20 25 03/27/2025 BASIC METAB OLIC PANEL glucose 112 mg/dL 70-120 Not Available [facility] ([facility]) [address] [place], [address], 03/27/2025 10:02:51 03/27/20 25 03/27/2025 BASIC METAB OLIC PANEL BUN 19 mg/dL 7-18 high Not Available [facility] ([facility]) [address] [place], [address], 03/27/2025 10:02:51 03/27/20 25 03/27/2025 BASIC METAB OLIC PANEL creatinine 1.1 mg/dL 0.6-1. 3 Not Available [facility] ([facility]) [address] [place], [address], 03/27/2025 10:02:51 03/27/20 25 03/27/2025 BASIC METAB [...] marcum ing kiney funct ion. Not Available [facility] ([facility]) [address], [place], [address], 03/27/2025 10:02:51 03/27/20 25 03/27/2025 BASIC METAB OLIC PANEL osmolality (calculated) 294 mOsm/ kg 275-30 1 OSMOL ALITY IS A CALCU LATIO N UTILI ZING THE SERUM /PLAS MA SODIU M, GLUCO SE AND UREA NITRO GEN (BUN) LEVEL S. FOR THE MOST ACCUR ATE RESUL T A MEASU RED SERUM OSMOL ALITY IS SUGMELISSA WELCH. Not Available [facility] ([facility]) [address], [place], [address], 03/27/2025 10:02:51 03/27/2003/27/2025 BASIC METAB OLIC PANEL calcium 8.7 mg/dL 8.5-10 .5 Not Available [facility] ([facility]) [address], [place], [address], 03/27/2025 10:02:51 04/03/2004/03/2025 PATHO LOGY SPECI MEN pathology specimen SEE REPORT Not Available [facility] ([facility]) [address], [place], [address], 04/03/2025 09:00:57 Result Notes None recorded. Problems Name Problem SNOMED Code Status Onset Date Resolution Date Notes Provider Name and Address Organization Details Recorded Time Poor stream of urine 603439651 Active 2024 VIPIN DIALLO MD [address], [place], [address] , [facility] & [place] 5 10:43:53 Increased frequency of urination 955098343 Active [address], [place], [address] , [place] - [facility] - [place] & [place] 5 10:43:56 Urge incontinence of urine 92476204 Active [address], [place], [address] , [place] - [facility] - [place] & [place] 5 10:44:01 Nocturia 309038092 Active [address], [place], [address] , [place] - [facility] - [place] & [place] 10:44:04 Retention of urine 727212195 Active [address], [place], [address] , [place] - [facility] - [place] & [place] 12:42:28 Problem Notes None recorded. Procedures Surgical History Date Name Laterality Status Provider Name and Address Organization Details Recorded Time 04/10/20 25 FOOT SPECIALIST Test completed Sharda DIAS - [facility] - [place] & [place] 04/10/2025 16:32:49 04/06/20 25 Cavanaugh Catheter Insertion completed Sharda DIAS - [facility] - [place] & [place] 04/06/2025 12:56:18 04/03/20 25 Cavanaugh Catheter Insertion completed Sharda Marquis [place] - [facility] - [place] & [place] 04/03/2025 11:32:51 03/01/20 25 Cystoscopy-Male completed MD [address], [place], [address], [place] - [facility] - [place] & [place] 03/01/2025 13:41:28 03/01/20 25 TRUS completed MD [address], [place], [address], [place] - [facility] - [place] & [place] 03/01/2025 13:40:58 08/02/19 24 Other completed Andralucy Portert LARISSA - [facility] - [place] & [place] 04/06/2025 11:11:20 08/02/19 24 Cardiovascular Surgery completed Andralucy AyonPoli LARISSA - [facility] - [place] & [place] 04/06/2025 11:11:20 08/02/19 22 ENT Surgery completed Andra Poli LARISSA - [facility] - [place] & [place] 04/06/2025 11:11:20 08/02/19 17 Cardiovascular Surgery completed Andralucy Portert LARISSA - [facility] - [place] & [place] 04/06/2025 11:11:20 08/02/19 11 Head or Neck Surgery completed Andra Poli LARISSA - [facility] - [place] & [place] 04/06/2025 11:11:20 08/02/19 07 Cardiovascular Surgery completed Andra Murphy LARISSA - [facility] - [place] & [place] 04/06/2025 11:11:20 08/02/18 74 Abdominal Surgery completed Andra DIAS - [facility] - [place] & [place] 04/06/2025 11:11:20 insertion of carotid artery stent completed Chelsey DIAS - GEOFF [facility] & [place] 02/16/2025 11:17:35 hernia repair completed Chelsey TELLEZ [facility] & [place] 02/16/2025 11:17:46 Imaging Results None recorded. Procedure Notes None recorded. Medical Equipment None Reported. Allergies Allergen ID Allergen Name Allergen Category Reaction Reaction Severity Criticality Documentation Date Start Date Code Code System Note Provider Name and Address Organization Details Recorded Time 774951 nickel environme nt other severe Not available 02/16/2025 78136 29 RxNorm LARISSA Adams - [facility] - [place] & [place] 10:48:35 529217 Non-stero idal anti-infl ammatory agent (substanc e) medicatio n Not available Not available Not available 02/16/2025 29659 5008 SNOMED LARISSA Adams - [facility] & [place] 10:49:39 Medications Name Sig Start Date Stop [...] Updated DateTime 04/03/2025 177.8 cm Sharda TELLEZ [facility] & [place] 04/03/2025 11:30:15 Date Recorded Body height Provider Name an d Address Organization Details Last Updated DateTime 04/10/2025 177.8 cm Sharda Pineda [facility] & [place] 04/10/2025 15:01:19 Social History Question Answer Notes LastModified by Organizat ion Details LastModified Time Tobacco Smoking Status Current Every Day Smoker [facility] & [place] 02/16/2025 10:53:51 Do You Have An Advance [...] is your level of alcohol consumption? Occasional [email or web address] Information not available 02/16/2025 Do you or have you ever used smokeless tobacco? Never used smokeless tobacco Information not available 04/06/2025 What is your exercise level? Occasional Information not available 04/06/2025 Mental Status Question Answer Note LastModified by Organization D etails LastModified Time Do you feel stressed (tense, restless, nervous, or anxious, or unable to sleep at night)? [id number] Information not available 04/06/2025 Family History Relationship [...] Not available 2024 14:55:53 Father Heart disease [email or web address] Not available 01/30 10:52:12 Maternal Grandfather Myocardial [...] Problems Y GI Problems Y Osteoporosis/Osteopenia Y Substance Abuse Y Anemia Y Reflux/GERD Y High Cholesterol Y Spine Problems Y Psychiatric/Mental Health Condition Y Heart Attack ([place]) Y Heart Disease Y Rheumatoid Arthritis Y Headaches Y Hypertension Y Neurological Problems Y Past Encounters Encounter ID Performer Location Encounter Start Date Encounter Closed Date Diagnosis/Indication Diagnosis SNOMED-CT Code Diagnosis ICD10 Code Diagnosis IMO Codes Diagnosis Note [id number] VIPIN DIALLO MD [facility]1 [address] [place] [address] 04/03/2025 10:53:41 04/03/2025 11:29:23 Retention of urine 405233328 R33.9 44727 Health Concerns Section Related Observation LastModified by Organization Detai ls LastModified Time None Recorded Concern Status LastModified by Organization Details LastModified Time None Recorded Payers Encounter Date Sequence Insurance Name Policy Number Policy Cordero Covered Member ID Cordero Member ID Guarantor Name 04/03/2025 1 [place]MEDICARE REPLACEMENT HMO) [id number] Abe Maharaj [id number] Abe Maharaj Notes Date Note Type Note Provider Name and Address Organization Details Recorded Time 04/03/2025 text/html 04/03/25 Patient here for voiding trial. Filled catheter with 150ml of steril water, patient was unable to urinate on his own. Replaced catheter with 16FR Cavanaugh catheter. VIPIN DIALLO MD [address], [place], [address], [place] - [facility] & [place] 04/17/2025 12:47:49 04/06/2025 text/html 04/06/25 Patient here for voiding trial. Filled catheter with 200ml, patient was unable to urinate on his own. VIPIN DIALLO MD [address], [place], [address], [place] - [facility] & [place] 04/17/2025 12:45:25 04/10/2025 text/html 04/10/25 Patient here for FOOT SPECIALIST testing. Voiding trial after FOOT SPECIALIST testing successful, patient was able to void 100ml. VIPIN DIALLO MD [address], [place], [address], [facility] - [place] & [place] 04/17/2025 12:42:31
--- OUTSIDE RECORDS SUMMARY | 2025-05-29 13:37 | XMS_ITS | Continuity of Care Document ---
Author Organization [facility]100 Address [address] [facility] [address] [place] [address] Care Team Providers Care Development Technologist Name Role Phone DEAN SAMUEL Primary Care [...] Urine: 148 ml Not Available [facility] [address] [facility] [address], [place], [address], 02/16/2025 10:20:55 03/27/2003/27/2025 BASIC METAB OLIC PANEL sodium 140 mmol/ L 136-14 5 Not Available [facility] [address] [facility], [place], [address], 03/27/2025 10:02:51 03/27/2003/27/2025 BASIC METAB OLIC PANEL potassium 4.2 mmol/ L 3.6-5. 0 Not Available [facility] [address] [facility], [place], [address], 03/27/2025 10:02:51 03/27/20 25 03/27/2025 BASIC METAB OLIC PANEL chloride 104 mmol/ L 98-107 Not Available [facility]) [address] , [place], [address], 03/27/2025 10:02:51 03/27/20 25 03/27/2025 BASIC METAB OLIC PANEL carbon dioxide 24.7 mmol/ L 21.0-3 2.0 Not Available [facility]) [address] , [place], [address], 03/27/2025 10:02:51 03/27/20 25 03/27/2025 BASIC METAB OLIC PANEL anion gap 15.5 Not Available [facility] ([facility]) [address] , [place], [address], 03/27/2025 10:02:51 03/27/20 25 03/27/2025 BASIC METAB OLIC PANEL glucose 112 mg/dL 70-120 Not Available [facility]) [address] [place], [address], 03/27/2025 10:02:51 03/27/20 25 03/27/2025 BASIC METAB OLIC PANEL BUN 19 mg/dL 7-18 high Not Available [facility]) [address] [place], [address], 03/27/2025 10:02:51 03/27/20 25 03/27/2025 BASIC METAB OLIC PANEL creatinine 1.1 mg/dL 0.6-1. 3 Not Available [facility]) [address] [place], [address], 03/27/2025 10:02:51 03/27/20 25 03/27/2025 BASIC METAB [...] marcum ing kiney funct ion. Not Available [facility] ([facility]) [address], [place], [address], 03/27/2025 10:02:51 03/27/20 25 03/27/2025 BASIC METAB OLIC PANEL osmolality (calculated) 294 mOsm/ kg 275-30 1 OSMOL ALITY IS A CALCU LATIO N UTILI ZING THE SERUM /PLAS MA SODIU M, GLUCO SE AND UREA NITRO GEN (BUN) LEVEL S. FOR THE MOST ACCUR ATE RESUL T A MEASU RED SERUM OSMOL ALITY IS SUGMELISSA WELCH. Not Available [facility] ([facility]) [address], [place], [address], 03/27/2025 10:02:51 03/27/2003/27/2025 BASIC METAB OLIC PANEL calcium 8.7 mg/dL 8.5-10 .5 Not Available [facility]) [address], [place], [address], 03/27/2025 10:02:51 04/03/2004/03/2025 PATHO LOGY SPECI MEN pathology specimen SEE REPORT Not Available [facility]) [address], [place], [address], 04/03/2025 09:00:57 Result Notes None recorded. Problems Name Problem SNOMED Code Status Onset Date Resolution Date Notes Provider Name and Address Organization Details Recorded Time Poor stream of urine 339188603 Active 2024 VIPIN DIALLO MD [address], [place], [address] , [facility] & [place] 5 10:43:53 Increased frequency of urination 138371200 Active [address], [place], [address] , [place] - [facility] - [place] & [place] 5 10:43:56 Urge incontinence of urine 86026419 Active [address], [place], [address] , [place] - [facility] - [place] & [place] 5 10:44:01 Nocturia 912883629 Active [address], [place], [address] , [place] - [facility] - [place] & [place] 10:44:04 Retention of urine 783175255 Active [address], [place], [address] , [place] [facility] - [place] & [place] 12:42:28 Problem Notes None recorded. Procedures Surgical History Date Name Laterality Status Provider Name and Address Organization Details Recorded Time 04/10/20 25 HOSIERY MENDER Test completed Sharda DIAS - [facility] - [place] & [place] 04/10/2025 16:32:49 04/06/20 25 Cavanaugh Catheter Insertion completed Sharda DIAS - [facility] - [place] & [place] 04/06/2025 12:56:18 04/03/20 25 Cavanaugh Catheter Insertion completed Sharda Marquis [place] - [facility] - [place] & [place] 04/03/2025 11:32:51 03/01/20 25 Cystoscopy-Male completed MD [address], [place], [address], [place] [facility] - [place] & [place] 03/01/2025 13:41:28 03/01/20 25 TRUS completed MD [address], [place], [address], [place] [facility] - [place] & [place] 03/01/2025 13:40:58 08/02/19 24 Other completed Andralucy Portert LARISSA - [facility] - [place] & [place] 04/06/2025 11:11:20 08/02/19 24 Cardiovascular Surgery completed Andralucy AyonPoli LARISSA - [facility] - [place] & [place] 04/06/2025 11:11:20 08/02/19 22 ENT Surgery completed Andra Poli LARISSA - [facility] - [place] & [place] 04/06/2025 11:11:20 08/02/19 17 Cardiovascular Surgery completed Andralucy Portert LARISSA - [facility] - [place] & [place] 04/06/2025 11:11:20 08/02/19 11 Head or Neck Surgery completed Andra Poli LARISSA - [facility] - [place] & [place] 04/06/2025 11:11:20 08/02/19 07 Cardiovascular Surgery completed Andra Leawood LARISSA - [facility] - [place] & [place] 04/06/2025 11:11:20 08/02/18 74 Abdominal Surgery completed Andra DIAS - [facility] - [place] & [place] 04/06/2025 11:11:20 insertion of carotid artery stent completed Chelsey DIAS - GEOFF [facility] & [place] 02/16/2025 11:17:35 hernia repair completed Chelsey TELLEZ [facility] & [place] 02/16/2025 11:17:46 Imaging Results None recorded. Procedure Notes None recorded. Medical Equipment None Reported. Allergies Allergen ID Allergen Name Allergen Category Reaction Reaction Severity Criticality Documentation Date Start Date Code Code System Note Provider Name and Address Organization Details Recorded Time 510865 nickel environme nt other severe Not available 02/16/2025 28969 29 RxNorm LARISSA Adams - [facility] - [place] & [place] 10:48:35 054916 Non-stero idal anti-infl ammatory agent (substanc e) medicatio n Not available Not available Not available 02/16/2025 65445 5008 SNOMED LARISSA Adams - [facility] & [place] 10:49:39 Medications Name Sig Start Date Stop [...] Updated DateTime 04/10/2025 177.8 cm Sharda Marquis [facility] & [place] 04/10/2025 15:01:19 Social History Question Answer Notes LastModified by ForeSee Details LastModified Time Tobacco Smoking Status Current Every Day Smoker Chelsey guy, [facility] & [place] 02/16/2025 10:53:51 Do You Have An Advance [...] is your level of alcohol consumption? Occasional [email or web address] Information not available 02/16/2025 Do you or have you ever used smokeless tobacco? Never used smokeless tobacco Information not available 04/06/2025 What is your exercise level? Occasional Information not available 04/06/2025 Mental Status Question Answer Note LastModified by Organization D etails LastModified Time Do you feel stressed (tense, restless, nervous, or anxious, or unable to sleep at night)? [id number] Information not available 04/06/2025 Family History Relationship [...] Not available 2024 14:55:53 Father Heart disease [email or web address] Not available 01/30 10:52:12 Maternal Grandfather Myocardial [...] Reflux/GERD Y High Cholesterol Y Heart Attack ([place]) Y Heart Disease Y Spine Problems Y Psychiatric/Mental Health Condition Y Rheumatoid Arthritis Y Headaches Y Hypertension Y Neurological Problems Y Past Encounters Encounter ID Performer Location Encounter Start Date Encounter Closed Date Diagnosis/Indication Diagnosis SNOMED-CT Code Diagnosis ICD10 Code Diagnosis IMO Codes Diagnosis Note [id number] VIPIN DIALLO MD [facility]-1 [address] [place] [address] 04/03/2025 10:53:41 04/03/2025 11:29:23 Retention of urine 118832626 R33.9 34470 [id number] VIPIN DIALLO MD [facility]-1 [address] [facility] 100 [place] [address] 04/06/2025 10:54:36 04/06/2025 13:02:50 Retention of urine 460252152 R33.9 36491 [id number] VIPIN DIALLO MD [facility]-1 [address] [facility] 100 [place] [address] 04/10/2025 14:55:20 04/10/2025 16:43:41 Retention of urine 393544696 R33.9 36901 Health Concerns Section Related Observation LastModified by Organization Detai ls LastModified Time None Recorded Concern Status LastModified by Organization Details LastModified Time None Recorded Payers Encounter Date Sequence Insurance Name Policy Number Policy Cordero Covered Member ID Cordero Member ID Guarantor Name 04/10/2025 1 [place] (MEDICARE REPLACEMENT HMO) [id number] Abe Maharaj [id number] Abe Maharaj Notes Date Note Type Note Provider Name and Address Organization Details Recorded Time 04/10/2025 text/html 04/10/25 Patient here for HOSIERY MENDER testing. Voiding trial after HOSIERY MENDER testing successful, patient was able to void 100ml. VIPIN DIALLO MD [address], [place], [address], [facility] 04/17/2025 12:42:31
--- OUTSIDE RECORDS SUMMARY | 2025-05-29 13:38 | XMS_ITS | Encounter Summary ---
[facility] Address [address] [place] [address] Care Team Providers Care Linoleum Layer Apprentice Name Role Phone Jennifer Newton APRN Primary Care Provid er Reason for Visit * Reason Comments Med Refill Encounter Details Date Type Department Care Team (Late st Contact Info) Description 03/30/2025 Refill [facility] [address] [facility] [address] [place] [address] Damien Cosme, [address] [id number] High risk medication use Social History Tobacco [...] Description 09/10/2025 3:00 PM EST Office Visit [facility] [address] [place] [phone] Valeria Machuca APRN [address] [facility] [address] [address] 01/07/2026 3:45 PM EDT Office Visit [facility] [address] [place] [address] Damien Cosme DO [address] [address] documented as of this encounter Goals Goal Patient Goal Type Associated Problems Recent Progress Patient-Stated? Author Specialty Pharmacy General Goal General No Alvin Maier, JonatanD Note: Reduce number of flares and pain score. documented as of this encounter Visit Diagnoses Diagnosis High risk medication use documented in this encounter Care Teams Linoleum Layer Apprentice Relationship Specialty Start Date End Date Jennifer Newton APRN [address] [facility] [address] [place] [address] PCP - General Family Medicine 03/20/24 documented as of this encounter
--- OUTSIDE RECORDS SUMMARY | 2025-05-29 13:38 | XMS_ITS ---
Author Organization [facility] Address [address] [place] [address] Care Team Providers Care Booking Officer Name Role Phone Jennifer Newton APRN Primary Care Provid er Rheumatology - External Fill Status:Enrolled (Active) Start date:01/16/2025 Enrollment date:01/16/2025 Enrollment reason:Identified as being on target medication Current support & services provided:Benefits Investigation, External Pharmacy Dispensing Linked medications:Adalimumab (Active) Linked problems:Seropositive rheumatoid arthritis (Active) Overview Maddi KAUFFMAN approved through 08.01.25 Continued Care and Services Coordination
--- OUTSIDE RECORDS SUMMARY | 2025-05-29 13:38 | XMS_ITS | Encounter Summary ---
Author Organization Healthcare Address [address] [place] [address] Care Team Providers Care Fabrication Technician Name Role Phone Savage Reardon MD Primary Care Provider [phone] Clayton James MD Unavailable [phone] Reason for Visit * Reason Comments Med Refill Encounter Details Date Type Department Care Team (Late st Contact Info) Description 11/19/2024 Refill [place] [facility] [address] [place] [address] Clayton James MD [address] [place] [address] Degeneration of intervertebral disc of [...] documented as of this encounter Care Teams Fabrication Technician Relationship Specialty Start Date End Date Savage Reardon MD [address] [place] [address] PCP - General 12/13/20 Clayton James MD [address] [place] [address] Surgeon Neurosurgery 09/22/24 documented as of this encounter
--- OUTSIDE RECORDS SUMMARY | 2025-05-29 13:38 | XMS_ITS | Data Portability ---
Author Organization [place] - [facility] ADMIN Address [address] [place] [address] Care Team Providers Care Dam Tender Name Role Phone DEAN SAMUEL Primary Care Provider [phone] Assessment Encounter Date Assessment Date Assessment LastModified [...] recorded. Lab urinalysis, dipstick 2024 025 [email or web address] [place] [address], [address], [place], [address], 13:55:44 Referral None recorded. Procedures None recorded. Surgeries transurethr al resection of prostate (SURG) 2024 025 [email or web address] Not available 14:11:22 Imaging None recorded. Medication Orders None recorded. Patient TargetsNo targets recorded. Patient InstructionsNo instructions recorded. Reason for Referral None Reported. Results Created Date Observation Date Name Description Value Unit Range Abnormal Flag Note LastModifiedBy Organization Detail LastModifiedTime 02/17/2002/16/2025 PROST ATE SPECI FIC AG (PSA) prostate specific Ag (PSA) <0.13 NG/mL 0-4.0 Not Available [facility] ([facility]) [address] [facility], [place], [address], 02/16/2025 12:13:38 03/01/2003/01/2025 urina lysis , dipst ick Leukocytes (reference range) negati ve Not Available [place] [address] [address] [facility] [address], [place], [address], 03/01/2025 13:42:15 03/01/2003/01/2025 urina lysis , dipst ick Nitrite (reference range:) negati ve Not Available [place] [address] [address] [facility] [address], [place], [address], 03/01/2025 13:42:15 03/01/20 25 03/01/2025 urina lysis , dipst ick Urobilinogen (reference range) 0.2 Not Available [place] [address] [address] [facility] [address], [place], [address], 03/01/2025 13:42:15 03/01/20 25 03/01/2025 urina lysis , dipst ick Protein (reference range) negati ve Not Available [place] [address] [address] [facility] [address], [place], [address], 03/01/2025 13:42:15 03/01/20 25 03/01/2025 urina lysis , dipst ick pH (reference range 5-8.5) 5.0 Not Available [facility] [address], [place], [address], 03/01/2025 13:42:15 03/01/20 25 03/01/2025 urina lysis , dipst ick Blood (reference range:) negati ve Not Available [place] [address] [address] [facility] [address], [place], [address], 03/01/2025 13:42:15 03/01/20 25 03/01/2025 urina lysis , dipst ick Specific Randolph (reference range) 1.000 Not Available [facility] [place] [address] [address] [facility] [address], [place], [address], 03/01/2025 13:42:15 03/01/20 25 03/01/2025 urina lysis , dipst ick Ketone (reference range) negati ve Not Available [place] [address] [address] [facility] [address], [place], [address], 03/01/2025 13:42:15 03/01/20 25 03/01/2025 urina lysis , dipst ick Bilirubin (reference range) negati ve Not Available [place] [address] [address] [facility] [address], [place], [address], 03/01/2025 13:42:15 03/01/20 25 03/01/2025 urina lysis , dipst ick Glucose (reference range) negati ve Not Available [facility] [address], [place], [address], 03/01/2025 13:42:15 03/01/20 25 03/01/2025 urina lysis , dipst ick Color (reference range: yellow-brown ) Yellow Not Available [facility] [address] [facility] [address], [place], [address], 03/01/2025 13:42:15 03/14/20 25 03/14/2025 bladd er scan (PROC ) Calculated Residual Urine: 148 ml Not Available [facility] [address] [facility] [address], [place], [address], 02/16/2025 10:20:55 03/27/20 25 03/27/2025 BASIC METAB OLIC PANEL sodium 140 mmol/ L 136-14 5 Not Available [facility] ([facility]) [address] [facility], [place], [address], 03/27/2025 10:02:51 03/27/20 25 03/27/2025 BASIC METAB OLIC PANEL potassium 4.2 mmol/ L 3.6-5. 0 Not Available [facility] ([facility]) [address] [facility], [place], [address], 03/27/2025 10:02:51 03/27/20 25 03/27/2025 BASIC METAB OLIC PANEL chloride 104 mmol/ L 98-107 Not Available [facility] ([facility]) [address] [facility], [place], [address], 03/27/2025 10:02:51 03/27/20 25 03/27/2025 BASIC METAB OLIC PANEL carbon dioxide 24.7 mmol/ L 21.0-3 2.0 Not Available [facility] ([facility]) [address] [place], [address], 03/27/2025 10:02:51 03/27/20 25 03/27/2025 BASIC METAB OLIC PANEL anion gap 15.5 Not Available [facility] ([facility]) [address] [facility], [place], [address], 03/27/2025 10:02:51 03/27/20 25 03/27/2025 BASIC METAB OLIC PANEL glucose 112 mg/dL 70-120 Not Available [facility] ([facility]) [address] [facility], [place], [address], 03/27/2025 10:02:51 03/27/20 25 03/27/2025 BASIC METAB OLIC PANEL BUN 19 mg/dL 7-18 high Not Available [facility] ([facility]) [address] [facility], [place], [address], 03/27/2025 10:02:51 03/27/20 25 03/27/2025 BASIC METAB OLIC PANEL creatinine 1.1 mg/dL 0.6-1. 3 Not Available [facility] ([facility]) [address] [facility], [place], [address], 03/27/2025 10:02:51 03/27/20 25 03/27/2025 BASIC METAB [...] marcum ing kiney funct ion. Not Available [facility] ([facility]) [address], [place], [address], 03/27/2025 10:02:51 03/27/20 25 03/27/2025 BASIC METAB OLIC PANEL osmolality (calculated) 294 mOsm/ kg 275-30 1 OSMOL ALIEVE IS A CALCU LATIO N UTILI ZING THE SERUM /PLAS MA SODIU M, GLUCO SE AND UREA NITRO GEN (BUN) LEVEL S. FOR THE MOST ACCUR ATE RESUL T A MEASU RED SERUM OSMOL ALIEVE IS JUNIOR BEATTYD. Not Available [facility] ([facility]) [address] , [place], [address], 03/27/2025 10:02:51 03/27/2003/27/2025 BASIC METAB OLIC PANEL calcium 8.7 mg/dL 8.5-10 .5 Not Available [facility] ([facility]) [address] , [place], [address], 03/27/2025 10:02:51 04/03/2004/03/2025 PATHO LOGY SPECI MEN pathology specimen SEE REPORT Not Available [facility] ([facility]) [address] , [place], [address], 04/03/2025 09:00:57 Result Notes None recorded. Problems Name Problem SNOMED Code Status Onset Date Resolution Date Notes Provider Name and Address Organization Details Recorded Time Poor stream of urine 025997646 Active 2024 VIPIN DIALLO MD [address] [facility] [address] [facility] & [place] 5 10:43:53 Increased frequency of urination 644699399 Active 2024 VIPIN DIALLO MD [address] [facility] [address] , [place] - [facility] [place] 5 10:43:56 Urge incontinence of urine 52876451 Active 2024 [facility] [facility] [address] , [facility] - [facility] [place] 5 10:44:01 Nocturia 044842819 Active 2024 VIPIN DIALLO MD [address] [facility] [address] , [place] - [facility] [place] [facility] [place] 10:44:04 Retention of urine 741183714 Active [address], [place], [address] , [place] - [facility] [place] [facility] [place] 12:42:28 Problem Notes None recorded. Procedures Surgical History Date Name Laterality Status Provider Name and Address Organization Details Recorded Time 04/10/20 25 INSTRUCTIONAL TECHNOLOGY COACH Test completed Sharda Marquis [place] - [facility] [place] & [place] 04/10/2025 16:32:49 04/06/20 25 Cavanaugh Catheter Insertion completed Sharda DIAS - [facility] - [place] & [place] 04/06/2025 12:56:18 04/03/20 25 Cavanaugh Catheter Insertion completed Sharda DIAS - [facility] - [place] & [place] 04/03/2025 11:32:51 03/01/20 25 Cystoscopy-Male completed MD [address], [place], [address], [place] - [facility] [place] [facility] [place] 03/01/2025 13:41:28 03/01/20 25 TRUS completed MD [address], [place], [address], [place] - [facility] [place] & [place] 03/01/2025 13:40:58 08/02/19 24 Other completed Andra Ashton [place] - [facility] [place] [facility] [place] 04/06/2025 11:11:20 08/02/19 24 Cardiovascular Surgery completed Andra Ashton [place] [facility] [place] 04/06/2025 11:11:20 08/02/19 22 ENT Surgery completed Andra Ashton [place] [facility] [place] [facility] [place] 04/06/2025 11:11:20 08/02/19 17 Cardiovascular Surgery completed Andra Ashton [place] [facility] [place] 04/06/2025 11:11:20 08/02/19 11 Head or Neck Surgery completed Andra Ashton [place] [facility] [place] 04/06/2025 11:11:20 08/02/19 07 Cardiovascular Surgery completed Andra Badillo [place] [facility] [place] 04/06/2025 11:11:20 08/02/18 74 Abdominal Surgery completed Andra Badillo [place] & [place] 04/06/2025 11:11:20 insertion of carotid artery stent completed Chelsey TELLEZ [facility] [place] 02/16/2025 11:17:35 hernia repair completed Chelsey TELLEZ [facility] [place] 02/16/2025 11:17:46 Imaging Results None recorded. Procedure Notes None recorded. Medical Equipment None Reported. Allergies Allergen ID Allergen Name Allergen Category Reaction Reaction Severity Criticality Documentation Date Start Date Code Code System Note Provider Name and Address Organization Details Recorded Time 239159 nickel environme nt other severe Not available 02/16/2025 25019 29 RxNorm LARISSA Adams [facility] [place] 10:48:35 731168 Non-stero idal anti-infl ammatory agent (substanc e) medicatio n Not available Not available Not available 02/16/2025 72008 5008 SNOMED LARISSA Adams [facility] [place] 10:49:39 Medications Name Sig Start [...] Last Updated DateTime 177.8 cm 41 kg/m2 117599. 42 g 96 % 96 % 64 /min 112/60 mm[Hg] Chelsey Hoffman LARISSA TELLEZ [facility] [place] 13:41:43 Date Recorded Body height Provider Name an d Address Organization Details Last Updated DateTime 04/03/2025 177.8 cm Sharda Badillo [facility] [place] 04/03/2025 11:30:15 Date Recorded Body height Provider Name an d Address Organization Details Last Updated DateTime 04/10/2025 177.8 cm Sharda Badillo [facility] [place] 04/10/2025 15:01:19 Social History Question Answer Notes LastModified by Organizat ion Details LastModified Time Tobacco Smoking Status Current Every Day Smoker Chesley Hoffman LARISSA guy [facility] [place] 02/16/2025 10:53:51 Do You Have [...] is your level of alcohol consumption? Occasional [email or web address] Information not available 02/16/2025 Do you or have you ever used smokeless tobacco? Never used smokeless tobacco Information not available 04/06/2025 What is your exercise level? Occasional Information not available 04/06/2025 Mental Status Question Answer Note LastModified by Organization D etails LastModified Time Do you feel stressed (tense, restless, nervous, or anxious, or unable to sleep at night)? [id number] Information not available 04/06/2025 Family History Relationship [...] Not available 2024 14:55:53 Father Heart disease [email or web address] Not available 01/30 10:52:12 Maternal Grandfather Myocardial [...] ICD10 Code Diagnosis IMO Codes Diagnosis Note [id number] VIPIN DIALLO MD [facility] [address] [facility] [address] [place] [address] 02/16/2025 10:04:16 02/16/2025 10:45:08 Poor stream of urine 189607489 R39.12 22875 Increased frequency of urination 681081790 R35.0 93457 Urge incon tinence of urine 38213423 N39.41 08809 Nocturia 406351260 R35.1 11258 4400320 VIPIN DIALLO MD [facility] [address] [facility] [address] [place] [address] 03/01/2025 13:12:38 03/01/2025 14:10:18 Poor stream of urine 720235660 R39.12 87403 Urge incon tinence of urine 70976860 N39.41 96814 9548154 VIPIN DIALLO MD [facility] [address] [facility] [address] [place] [address] 04/03/2025 10:53:41 04/03/2025 11:29:23 Retention of urine 528158994 R33.9 57165 [id number] VIPIN DIALLO MD [facility] [address] [facility] [address] [place] [address] 04/06/2025 10:54:36 04/06/2025 13:02:50 Retention of urine 230453368 R33.9 49826 0424214 VIPIN DIALLO MD [facility] 00 [address] [facility] [address] [place] [address] 04/10/2025 14:55:20 04/10/2025 16:43:41 Retention of urine 263724235 R33.9 41674 Health Concerns Section Related Observation LastModified by Organization Detai ls LastModified Time None Recorded Concern Status LastModified by Organization Details LastModified Time None Recorded Advance Directives Directive N: Payers Insurance Date Sequence Insurance Name Policy Number Policy Cordero Covered Member ID Cordero Member ID Guarantor Name 04/18/2025 1 [place]ABI[place] JOSE OF [place] - [employer] (MEDICARE REPLACEMENT HMO) [id number] Abe Maharaj [id number] Abe Maharaj Notes Date Note Type [...] He is under the care of Dr. kSy for blood thinners, which may need to [...] and is under the care of a plywood scarfer tender, Dr. Sky. He is currently taking Plavix and multiple blood pressure medications, including furosemide. 02/19/25 UroCuff: Pcuffint 200.0cmH2O, Qmax 11.7ml/s (high pressure, high flow)02/16/25 PSA <0. Cr 1.0, GFR 91, Hgb 13.6, Hct 41.4 VIPIN DIALLO MD [address], [place], [address] [place] [facility] [place] 03/06/2025 07:47:49 04/03/2025 text/html 04/03/25 Patient here for voiding trial. Filled catheter with 150ml of steril water, patient was unable to urinate on his own. Replaced catheter with 16FR Cavanaugh catheter. VIPIN DIALLO MD [address], [place], [address] [place] [facility] [place] 04/17/2025 12:47:49 04/06/2025 text/html 04/06/25 Patient here for voiding trial. Filled catheter with 200ml, patient was unable to urinate on his own. VIPIN DIALLO MD [address], [place], [address] [place] [facility] [place] 04/17/2025 12:45:25 04/10/2025 text/html 04/10/25 Patient here for INSTRUCTIONAL TECHNOLOGY COACH testing. Voiding trial after INSTRUCTIONAL TECHNOLOGY COACH testing successful, patient was able to void 100ml. MD [address], [place], [address] [place] [facility] [place] 04/17/2025 12:42:31
--- OUTSIDE RECORDS SUMMARY | 2025-05-29 13:38 | XMS_ITS | Encounter Summary ---
Author Organization Healthcare Address [address] [place] [address] Care Team Providers Care Fisher Trot Line Name Role Phone Savage Reardon MD Primary Care Provider Clayton James MD Unavailable [phone] Encounter Details Date Type Department Care Team (Late st Contact Info) Description 05/04/2024 Orders Only External Location [address] [place] [address] Savage Reardon MD [address] [place] [address] Social History Tobacco Use Types [...] on filedocumented in this encounter Care Teams Fisher Trot Line Relationship Specialty Start Date End Date Savage Reardon MD [address] [place] [address] PCP - General 12/13/20 Clayton James MD [address] [place] [address] Surgeon Neurosurgery 09/22/24 documented as of this encounter
--- OUTSIDE RECORDS SUMMARY | 2025-05-29 13:38 | XMS_ITS | Clinical Summary ---
Author Organization [facility] Address [address] [place] [address] Care Team Providers Care Loss Prevention Manager Name Role Phone Jennifer Newton APRN Primary [...] normal, DS DNA normal, Ribosomal P normal, UNDER PRESSER normal, SCL 70 normal, Morrow normal, SSA [...] normal, DS DNA normal, Ribosomal P normal, UNDER PRESSER normal, SCL 70 normal, Morrow normal, SSA [...] normal, DS DNA normal, Ribosomal P normal, UNDER PRESSER normal, SCL 70 normal, Morrow normal, SSA [...] normal, DS DNA normal, Ribosomal P normal, UNDER PRESSER normal, SCL 70 normal, Morrow normal, SSA [...] Office Visit [facility] [address] [place] [address] Valeria Machuca APRN Seropositive rheumatoid arthritis (Primary Dx); Immunodeficiency due to treatment with immunosuppressive medication; High risk medication use; Paranoid schizophrenia; Primary osteoarthritis involving multiple joints; Stage I pressure ulcer of left buttock 05/14/2025 Telephone [facility] [address] [place] [address] Valeria Machuca APRN 05/14/2025 Travel 03/30/2025 Refill [facility] [address] [place] [address] Damien Cosme DO High risk medication use 03/10/2025 Refill [facility] [address] [place] [address] Damien Cosme DO from Last 3 Months [...] Description 09/10/2025 3:00 PM EST Office Visit [facility] [address] [phone] Valeria Machuca APRN [address] [id number] 01/07/2026 3:45 PM EDT Office Visit [facility] [address] [phone] Damien Cosme DO [address] [id number] Health Maintenance Due Date Last Done Comments [...] Procedure Name Priority Date/Time Associated Diagnosis Comments SCANNED - LABS 05/01/2025 HEPATITIS PANEL, ACUTE Routine 09/15/2024 2:32 PM EST Seropositive rheumatoid arthritis High risk medication use Primary osteoarthritis involving multiple joints Fatigue, unspecified type from Last 3 Months or Most Recently Relevant to Health Maintenance Results * LABS SCANNED (05/01/2025) us Daniel Michelle MD LAB BLOOD ORDERABLES Final Resu lt * Hepatitis Panel, Acute (09/15/2024 2:32 PM EST) Hepatitis B Surface Ag Non-Reacti ve Non-Reacti ve 09/15/2024 11:42 PM EST [facility] Hep A IgM Non-Reacti ve Non-Reacti ve 09/15/2024 11:42 PM EST [facility] Hep B C IgM Non-Reacti ve Non-Reacti ve 09/15/2024 11:42 PM EST [facility] Hepatitis C Ab Non-Reacti ve Non-Reacti ve 09/15/2024 11:42 PM EST [facility] Blood Venipuncture / Unknown 09/15/2024 2:32 PM EST 09/15/2024 2:33 PM EST [facility] - 09/15/2024 11:42 PM EST Results may be falsely decreased if patient taking Biotin. us Damien Art Cosme DO LAB BLOOD ORDERABLES F inal Result [facility]
[address] [place] [address], [place] [phone] from Last 3 Months or Most Recently Relevant to Health Maintenance Insurance [facility] MEDICARE ADVANTAGE HMO Care Teams Loss Prevention Manager Relationship Specialty Start Date End Date Jennifer Newton APRN [address] [facility] [address] [place] [address] PCP - General Family Medicine 03/20/24
--- OUTSIDE RECORDS SUMMARY | 2025-05-29 13:38 | XMS_ITS | Continuity of Care Document ---
Author Organization [facility] Address [address] [facility] [address] [place] [address] Care Team Providers Care Visually Impaired Teacher Name Role Phone DEAN SAMUEL Primary Care Provider [phone] Assessment No assessment recorded. Plan of Treatment [...] Urine: 148 ml Not Available [facility] [address] [facility] [address], [place], [address], 02/16/2025 10:20:55 03/27/2003/27/2025 BASIC METAB OLIC PANEL sodium 140 mmol/ L 136-14 5 Not Available [facility] ([facility]) [address] [facility], [place], [address], 03/27/2025 10:02:51 03/27/2003/27/2025 BASIC METAB OLIC PANEL potassium 4.2 mmol/ L 3.6-5. 0 Not Available [facility] ([facility]) [address] [facility], [place], [address], 03/27/2025 10:02:51 03/27/20 25 03/27/2025 BASIC METAB OLIC PANEL chloride 104 mmol/ L 98-107 Not Available [facility] ([facility]) [address] , [place], [address], 03/27/2025 10:02:51 03/27/20 25 03/27/2025 BASIC METAB OLIC PANEL carbon dioxide 24.7 mmol/ L 21.0-3 2.0 Not Available [facility] ([facility]) [address] , [place], [address], 03/27/2025 10:02:51 03/27/20 25 03/27/2025 BASIC METAB OLIC PANEL anion gap 15.5 Not Available [facility] ([facility]) [address] , [place], [address], 03/27/2025 10:02:51 03/27/20 25 03/27/2025 BASIC METAB OLIC PANEL glucose 112 mg/dL 70-120 Not Available [facility] ([facility]) [address] [place], [address], 03/27/2025 10:02:51 03/27/20 25 03/27/2025 BASIC METAB OLIC PANEL BUN 19 mg/dL 7-18 high Not Available [facility] ([facility]) [address] [place], [address], 03/27/2025 10:02:51 03/27/20 25 03/27/2025 BASIC METAB OLIC PANEL creatinine 1.1 mg/dL 0.6-1. 3 Not Available [facility] ([facility]) [address] [place], [address], 03/27/2025 10:02:51 03/27/20 25 03/27/2025 BASIC METAB [...] marcum ing kiney funct ion. Not Available [facility] ([facility]) [address], [place], [address], 03/27/2025 10:02:51 03/27/20 25 03/27/2025 BASIC METAB OLIC PANEL osmolality (calculated) 294 mOsm/ kg 275-30 1 OSMOL ALITY IS A CALCU LATIO N UTILI ZING THE SERUM /PLAS MA SODIU M, GLUCO SE AND UREA NITRO GEN (BUN) LEVEL S. FOR THE MOST ACCUR ATE RESUL T A MEASU RED SERUM OSMOL ALITY IS SUGMELISSA WELCH. Not Available [facility] ([facility]) [address], [place], [address], 03/27/2025 10:02:51 03/27/2003/27/2025 BASIC METAB OLIC PANEL calcium 8.7 mg/dL 8.5-10 .5 Not Available [facility] ([facility]) [address], [place], [address], 03/27/2025 10:02:51 04/03/2004/03/2025 PATHO LOGY SPECI MEN pathology specimen SEE REPORT Not Available [facility] ([facility]) [address], [place], [address], 04/03/2025 09:00:57 Result Notes None recorded. Problems Name Problem SNOMED Code Status Onset Date Resolution Date Notes Provider Name and Address Organization Details Recorded Time Poor stream of urine 353804745 Active 2024 VIPIN DIALLO MD [address], [place], [address] , [facility] & [place] 5 10:43:53 Increased frequency of urination 337898956 Active [address], [place], [address] , [place] - [facility] - [place] & [place] 5 10:43:56 Urge incontinence of urine 60585198 Active [address], [place], [address] , [place] - [facility] [place] & [place] 5 10:44:01 Nocturia 202975631 Active [address], [place], [address] , [place] [facility] [place] & [place] 10:44:04 Retention of urine 265926343 Active [address], [place], [address] , [place] - [facility] [place] & [place] 12:42:28 Problem Notes None recorded. Procedures Surgical History Date Name Laterality Status Provider Name and Address Organization Details Recorded Time 04/10/20 25 GASKET NOTCHER Test completed Sharda DIAS - [facility] - [place] & [place] 04/10/2025 16:32:49 04/06/20 25 Cavanaugh Catheter Insertion completed Sharda DIAS - [facility] - [place] & [place] 04/06/2025 12:56:18 04/03/20 25 Cavanaugh Catheter Insertion completed Sharda Marquis [place] - [facility] - [place] & [place] 04/03/2025 11:32:51 03/01/20 25 Cystoscopy-Male completed MD [address], [place], [address], [place] - [facility] [place] & [place] 03/01/2025 13:41:28 03/01/20 25 TRUS completed MD [address], [place], [address], [place] - [facility] [place] & [place] 03/01/2025 13:40:58 08/02/19 24 Other completed Andralucy Portert LARISSA - [facility] - [place] & [place] 04/06/2025 11:11:20 08/02/19 24 Cardiovascular Surgery completed Andralucy AyonPoli LARISSA - [facility] - [place] & [place] 04/06/2025 11:11:20 08/02/19 22 ENT Surgery completed Andra Poli LARISSA - [facility] - [place] & [place] 04/06/2025 11:11:20 08/02/19 17 Cardiovascular Surgery completed Andralucy Portert LARISSA - [facility] - [place] & [place] 04/06/2025 11:11:20 08/02/19 11 Head or Neck Surgery completed Andra Poli LARISSA - [facility] - [place] & [place] 04/06/2025 11:11:20 08/02/19 07 Cardiovascular Surgery completed Andra Germfask LARISSA - [facility] - [place] & [place] 04/06/2025 11:11:20 08/02/18 74 Abdominal Surgery completed Andra DIAS - [facility] - [place] & [place] 04/06/2025 11:11:20 insertion of carotid artery stent completed Chelsey DIAS - GE[facility] & [place] 02/16/2025 11:17:35 hernia repair completed Chelsey TELLEZ [facility] & [place] 02/16/2025 11:17:46 Imaging Results None recorded. Procedure Notes None recorded. Medical Equipment None Reported. Allergies Allergen ID Allergen Name Allergen Category Reaction Reaction Severity Criticality Documentation Date Start Date Code Code System Note Provider Name and Address Organization Details Recorded Time 125801 nickel environme nt other severe Not available 02/16/2025 37811 29 RxNorm LARISSA Adams - [facility] - [place] & [place] 10:48:35 845862 Non-stero idal anti-infl ammatory agent (substanc e) medicatio n Not available Not available Not available 02/16/2025 81548 5008 SNOMED LARISSA Adams - [facility] & [place] 10:49:39 Medications Name Sig Start Date Stop [...] Updated DateTime 04/10/2025 177.8 cm Sharda Marquis [facility] & [place] 04/10/2025 15:01:19 Social History Question Answer Notes LastModified by [employer] Details LastModified Time Tobacco Smoking Status Current Every Day Smoker Chelsey guy, [facility] & [place] 02/16/2025 10:53:51 Do You Have An Advance [...] is your level of alcohol consumption? Occasional [email or web address] Information not available 02/16/2025 Do you or have you ever used smokeless tobacco? Never used smokeless tobacco Information not available 04/06/2025 What is your exercise level? Occasional Information not available 04/06/2025 Mental Status Question Answer Note LastModified by Organization D etails LastModified Time Do you feel stressed (tense, restless, nervous, or anxious, or unable to sleep at night)? [id number] Information not available 04/06/2025 Family History Relationship [...] Not available 2024 14:55:53 Father Heart disease [email or web address] Not available 01/30 10:52:12 Maternal Grandfather Myocardial [...] Y Psychiatric/Mental Health Condition Y Heart Attack (DC) Y Heart Disease Y Rheumatoid Arthritis Y Headaches Y Hypertension Y Neurological Problems Y Past Encounters Encounter ID Performer Location Encounter Start Date Encounter Closed Date Diagnosis/Indication Diagnosis SNOMED-CT Code Diagnosis ICD10 Code Diagnosis IMO Codes Diagnosis Note [id number] VIPIN DIALLO MD [facility] [place] [address] 04/03/2025 10:53:41 04/03/2025 11:29:23 Retention of urine 793717191 R33.9 66509 [id number] VIPIN DIALLO MD [facility] [place] [address] 04/06/2025 10:54:36 04/06/2025 13:02:50 Retention of urine 761364073 R33.9 21267 Health Concerns Section Related Observation LastModified by Organization Detai ls LastModified Time None Recorded Concern Status LastModified by Organization Details LastModified Time None Recorded Payers Encounter Date Sequence Insurance Name Policy Number Policy Cordero Covered Member ID Cordero Member ID Guarantor Name 04/06/2025 1 [place] (MEDICARE REPLACEMENT HMO) [id number] Abe Maharaj [id number] Abe Maharaj Notes Date Note Type Note Provider Name and Address Organization Details Recorded Time 04/06/2025 text/html 04/06/25 Patient here for voiding trial. Filled catheter with 200ml, patient was unable to urinate on his own. MD [address], [place], [address], [place] - [facility] & [place] 04/17/2025 12:45:25 04/10/2025 text/html 04/10/25 Patient here for GASKET NOTCHER testing. Voiding trial after GASKET NOTCHER testing successful, patient was able to void 100ml. MD [address], [place], [address], [place] - [facility] & [place] 04/17/2025 12:42:31
--- OUTSIDE RECORDS SUMMARY | 2025-05-29 13:38 | XMS_ITS | Encounter Summary ---
Author Organization Healthcare Address [address] [place] [address] Care Team Providers Care Dietary Aide Name Role Phone Savage Reardon MD Primary Care Provider [phone] Clayton James MD Unavailable [phone] Reason for Visit * Reason Comments Med Refill Encounter Details Date Type Department Care Team (Late st Contact Info) Description 12/12/2024 Refill [place] [facility] [address], [address] [place] [address] Clayton James MD [address] [place] [address] Degeneration of intervertebral disc of [...] 12/12/2024 8:12 AM EDT Tk request #: [id number] reviewed and appropriate. Refill sent to the [...] documented as of this encounter Care Teams Dietary Aide Relationship Specialty Start Date End Date Savage Reardon MD [address] [place] [address] PCP - General 12/13/20 Clayton James MD [address] [place] [address] Surgeon Neurosurgery 09/22/24 documented as of this encounter
--- OUTSIDE RECORDS SUMMARY | 2025-05-29 13:38 | XMS_ITS | Encounter Summary ---
[facility] Address [address] [place] [address] Care Team Providers Care Seismograph Computer Name Role Phone Jennifer Newton APRN Primary Care Provid er Encounter Details Date Type Department Care Team (Late st Contact Info) Description 01/15/2025 Results Follow-Up [facility] [address] [facility] [address] [place] [address] Valeria Machuca APRN [address] [facility] [address] [place] [address] Social History Tobacco Use Types [...] PM EST Office Visit [facility] [address] [place] [address] Valeria Machuca APRN [address] [facility] [address] [place], [place] [id number] 01/07/2026 3:45 PM EDT Office Visit [facility] [address] [place] [address] Damien Cosme DO [address] [id number] documented as of this encounter Goals Goal Patient Goal Type Associated Problems Recent Progress Patient-Stated? Author Specialty Pharmacy General Goal General No Alvin Maier, PharmD Note: Reduce number of flares and pain score. documented as of this encounter Visit Diagnoses Not on filedocumented in this encounter Care Teams Seismograph Computer Relationship Specialty Start Date End Date Jennifer Newton, [place] [address] [facility] [address] [place] [address] PCP - General Family Medicine 03/20/24 documented as of this encounter
--- OUTSIDE RECORDS SUMMARY | 2025-05-29 13:39 | XMS_ITS | Encounter Summary ---
Author Organization Healthcare Address [address] [place] [address] Care Team Providers Care Customs And Border Protection Officer Name Role Phone Savage Reardon MD Primary Care Provider [phone] Clayton James MD Unavailable [phone] Reason for Visit * Reason Comments Med Refill Encounter Details Date Type Department Care Team (Late st Contact Info) Description 02/09/2025 Refill [place] [facility] [address] [place] [address] Daniel Grajeda MD [address] [place] [address] Degeneration of intervertebral disc of [...] documented as of this encounter Care Teams Customs And Border Protection Officer Relationship Specialty Start Date End Date Savage Reardon MD [address] [place] [address] PCP - General 12/13/20 Clayton James MD [address] [place] [address] Surgeon Neurosurgery 09/22/24 documented as of this encounter
--- OUTSIDE RECORDS SUMMARY | 2025-05-29 13:39 | XMS_ITS | Clinical Summary ---
Author Organization [facility] Address [address] [place] [address] Care Team Providers Care Grants Analyst Name Role Phone Savage Reardon MD Primary Care Provider [phone] Clayton James MD Unavailable [phone] Allergies Active Allergy Reactions Criticality Noted [...] Refill [place] [facility] [address] [place] [address] Clayton James MD Degeneration of intervertebral disc [...] 2008 UKY-Zoster Vaccines (1 of 2) 2008 [id number] Vaccine (1 - 20 24-25 season) 2025 [...] this topic Insurance [employer] MEDICARE Care Teams Grants Analyst Relationship Specialty Start Date End Date Savage Reardon MD [address] [place] [address] PCP - General 12/13/20 Clayton James MD [address] [place] [address] Surgeon Neurosurgery 09/22/24
== END 2025-05-29 23:59 | disposition home or self-care (01) ==
LOC: RAD 13:03
PROVIDERS: PCP Nurse Practitioner Family; Visit Provider Nurse Practitioner Family
DX: R10.31 Right lower quadrant pain (principal)
CPT/HCPCS: 74176